=== PATIENT | female | born 1940 | race Caucasian/White ===

== ENCOUNTER 2018-02-11 17:25 | Inpatient (IN) | payer MEDICARE, OTHER, SELFPAY | END 2018-02-17 11:50 | DRG 177 | PROVIDERS: Admitting Provider Internal Medicine; Emergency Provider Emergency Medicine; PCP Internal Medicine; Visit Provider Internal Medicine | DX: J15.6 Pneumonia due to other Gram-negative bacteria (principal); J96.01 Acute respiratory failure with hypoxia; C90.00 Multiple myeloma not having achieved remission; D61.818 Other pancytopenia; F11.20 Opioid dependence, uncomplicated; E44.0 Moderate protein-calorie malnutrition; J15.9 Unspecified bacterial pneumonia; Y95 Nosocomial condition; E11.9 Type 2 diabetes mellitus without complications; E03.9 Hypothyroidism, unspecified; F32.9 Major depressive disorder, single episode, unspecified; Z79.84 Long term (current) use of oral hypoglycemic drugs; G25.0 Essential tremor; M19.90 Unspecified osteoarthritis, unspecified site; G89.4 Chronic pain syndrome; Z86.718 Personal history of other venous thrombosis and embolism; R33.9 Retention of urine, unspecified; R13.10 Dysphagia, unspecified; G31.84 Mild cognitive impairment of uncertain or unknown etiology; Z68.26 Body mass index [BMI] 26.0-26.9, adult | CPT/HCPCS: 36415; 36430; 36592; 36600; 71020; 71046; 71250; 74220; 74230; 80048; 80053; 80202; 81001; 82805; 82962; 83605; 83880; 84484; 85025; 86850; 86900; 86901; 86922; 87040; 92526; 92610; 92611; 93005; 93010; 94640; 94760; 96365; 96366; 97116; 97161; 97530; 99058; 99285; P9016; J0713; J1100; J1642; J1650; J1940; J1956; J3370; J7613 ==

== ENCOUNTER → 2018-03-16 13:23 | Outpatient (CLI) | payer MEDICARE, OTHER, SELFPAY ==
[2018-03-16 14:20] LABS: Add Manual Diff / Slide Review NO; Basophils Percent Auto 1.2 % (0-2); Eosinophils Percent Auto 3.7 % (2-4); Hematocrit 32.5 % (36-46); Hemoglobin 10.7 g/dL (12.0-16.0); Lymphocytes Percent Auto 13.4 % (25-40); Mean Corpuscular HGB Conc 33.1 % (30-36); Mean Corpuscular Hemoglobin 32.4 PG (26-34); Monocytes Percent Auto 11.4 % (3-14); Neutrophils Absolute Auto 3500 /uL (3000-5900); Neutrophils Percent Auto 70.3 % (50-75); Platelet Count 201 X10^3/uL (150-400); Red Blood Cell Count 3.32 X10^6/uL (4.0-5.2); Red Cell Distribution Width 16.7 % (11.6-14.8); White Blood Cell Count 4.9 X10^3/uL (4.5-11.0)
[2018-03-16 14:34] LABS: Alanine Aminotransferase 27 IU/L (9-52); Albumin Globulin Ratio 1.4 (1.0-2.8); Alkaline Phosphatase 101 U/L (38-126); Aspartate Aminotransferase 23 IU/L (14-36); BUN Creatinine Ratio 45.6 (6-22); Bilirubin Total 0.5 mg/dL (0.2-1.3); Calcium 8.9 mg/dL (8.4-10.2); Estimated Glomerular Filt Rate > 60.0 mL/min (>60); Globulin 2.9 g/dL (1.7-4.1); Glucose 163 mg/dL (80-110); HEMOLYSIS < 15 (0-50); Potassium 4.3 mmol/L (3.4-5.1); Sodium 138 mmol/L (137-145); Total Protein 6.9 g/dL (6.3-8.2)
[2018-03-18 14:25] LABS: Free Kappa Light Chain 137.2 mg/L (3.3-19.4); Free Lambda 22.1 mg/L (5.7-26.3)
[2018-03-18 22:43] LABS: Albumin 3.6 g/dL (3.8-4.8); Alpha 1 Globulin 0.4 g/dL (0.2-0.3); Beta 1 Globulin 0.4 g/dL (0.4-0.6); Gamma Globulin 0.7 g/dL (0.8-1.7); Protein, Total 6.4 g/dL (6.1-8.1)
[2018-03-29 15:21] LABS: Alpha 2 Globulin 0.9
== END ==
PROVIDERS: Family Provider Internal Medicine; PCP Internal Medicine; Visit Provider Internal Medicine Hematology & Oncology
DX: C90.00 Multiple myeloma not having achieved remission (principal)
CPT/HCPCS: 80053; 83883; 84155; 84165; 85025

== ENCOUNTER → 2018-03-20 14:34 | Outpatient (REF) | payer MEDICARE, OTHER, SELFPAY ==
[2018-03-20 15:03] LABS: Appearance Urine UA CLOUDY; Bilirubin Urine UA NEGATIVE (NEGATIVE); Color Urine UA YELLOW; Glucose Urine UA NEGATIVE (Negative); Ketones Urine UA NEGATIVE (NEGATIVE); Leukocyte Esterase Urine UA 2+ (NEGATIVE); Nitrite Urine UA POSITIVE (Negative); Occult Blood Urine UA TRACE-LYSED (Negative); Protein Urine UA NEGATIVE (Negative); Specific Gravity Urine UA 1.015 (1.000-1.035); Urobilinogen Urine UA 0.2 E.U./dL (0.2)
[2018-03-20 15:04] LABS: Bacteria Urine Many (>30); Culture Indicated Urine Specimen Cultured; RBC Urine 5-10/HPF (0-5/HPF); Squamous Epithelial Cell Urine 1-5 /HPF; WBC Urine >100/HPF (0-5/HPF)
--- NOTE | 2018-03-25 09:57 | PC.NURSE ---
Per Dr Blanco's request, pt daughter Gracie was notified that Bone survey shows stable disease with lesions not growing in size or number. Gracie was thankful for the call.
== END ==
LOC: LAB 14:34
PROVIDERS: Family Provider Internal Medicine; PCP Internal Medicine; Visit Provider Internal Medicine
DX: R30.0 Dysuria (principal)
CPT/HCPCS: 81001; 87086; 87186

== ENCOUNTER → 2018-03-23 14:29 | Outpatient (CLI) | payer MEDICARE, OTHER, SELFPAY ==
--- NOTE | 2018-03-23 14:35 | DI.RAD.S_ITS ---
PROCEDURE: XR BONE SURVEY INDICATIONS: BONE SURVEY TECHNIQUE: Multiple views obtained of various bony structures as described below. COMPARISON: [facility], , BONE SURVEY ADULT METS, 04/20/2017, 14:22. FINDINGS: Skull (lateral): 3 temporal bone defects appear unchanged. Small occipital lobe defect is unchanged. The second and larger occipital lobe defect on last exam is not seen, possibly obscured by rotation. Thoracic spine (AP, lateral): Rounded radiolucency is overlying T6, T8 and T9 and lateral view on prior exam are present but are obscured at T8 and T9, not seen at T6. Lumbar spine (AP, lateral): Scoliosis and degenerative changes with grade one anterolisthesis at L4-5 and facet arthropathy L4-5 and L5-S1. A large, 1.0 x 2.2 cm oval lucency projects over the posterior L1, also present on prior exam and therefore suspect for a true lesion. Smaller 1.4 cm lucency over the anterior, inferior L2 is more likely bowel gas but true lesion is not excluded. Pelvis (AP): Lytic lesions in the superior and inferior rami of the left ischium are unchanged. Probable degenerative cystic changes in the left acetabulum. Suspicious lucency in the right femoral neck laterally adjacent to the greater trochanter, unchanged. Right and left humeri (AP): Large lucency in the proximal one third of the right humeral shaft is unchanged. Small oval lucency in the proximal left humeral shaft is unchanged. No new lesions seen. Expansile lesion in the lateral left rib cage is unchanged. Right and left femurs (AP): As previously noted, there are very small lucencies scattered through the shaft of the right femur as well as several discrete lucencies in the distal femoral metaphysis just above the prosthesis. These appear to be unchanged. In the left femur are lucencies in the distal metaphysis just above the prosthesis that are indeterminate but suspicious. IMPRESSION: 1. Multiple osseous lesions consistent with metastatic bone disease such as multiple myeloma. These appear stable in size and number compared to last bone survey. Lesions in the upper lumbar spine are noted. Dictated by: Иван Harris M.D. on 03/23/2018 at 15:15 Approved by: Иван Harrsi M.D. on 03/23/2018 at 15:36
== END ==
PROVIDERS: Family Provider Internal Medicine; PCP Internal Medicine; Visit Provider Internal Medicine Hematology & Oncology
DX: R93.7 Abnormal findings on diagnostic imaging of other parts of musculoskeletal system (principal)
CPT/HCPCS: 77075

== ENCOUNTER → 2018-04-06 11:07 | Outpatient (CLI) | payer MEDICARE, OTHER, SELFPAY | PROVIDERS: Family Provider Internal Medicine; PCP Internal Medicine; Visit Provider Internal Medicine Hematology & Oncology | DX: C90.00 Multiple myeloma not having achieved remission (principal) | CPT/HCPCS: 36592 ==

== ENCOUNTER → 2018-05-11 12:23 | Outpatient (CLI) | payer MEDICARE, OTHER, SELFPAY ==
[2018-05-11 13:19] LABS: Add Manual Diff / Slide Review NO; Basophils Percent Auto 1.1 % (0-2); Eosinophils Percent Auto 3.5 % (2-4); Hematocrit 33.3 % (36-46); Lymphocytes Percent Auto 15.1 % (25-40); Mean Corpuscular HGB Conc 33.1 % (30-36); Mean Corpuscular Volume 96.7 fL (80-100); Monocytes Percent Auto 10.7 % (3-14); Neutrophils Absolute Auto 2400 /uL (3000-5900); Neutrophils Percent Auto 69.6 % (50-75); Platelet Count 172 X10^3/uL (150-400); Red Blood Cell Count 3.44 X10^6/uL (4.0-5.2); Red Cell Distribution Width 15.2 % (11.6-14.8); White Blood Cell Count 3.4 X10^3/uL (4.5-11.0)
[2018-05-11 13:50] LABS: Alanine Aminotransferase 22 IU/L (9-52); Albumin 3.7 g/dL (3.5-5.0); Albumin Globulin Ratio 1.5 (1.0-2.8); Alkaline Phosphatase 86 U/L (38-126); Aspartate Aminotransferase 23 IU/L (14-36); Bilirubin Total 0.4 mg/dL (0.2-1.3); Blood Urea Nitrogen 20 mg/dL (7-17); Calcium 8.8 mg/dL (8.4-10.2); Carbon Dioxide 29 mmol/L (22-32); Chloride 104 mmol/L (98-107); Estimated Glomerular Filt Rate > 60.0 mL/min (>60); Globulin 2.5 g/dL (1.7-4.1); Glucose 150 mg/dL (80-110); HEMOLYSIS < 15 (0-50); Sodium 140 mmol/L (137-145); Total Protein 6.2 g/dL (6.3-8.2)
[2018-05-13 15:48] LABS: Free Kappa Light Chain 134.8 mg/L (3.3-19.4); Free Lambda 15.5 mg/L (5.7-26.3)
[2018-05-17 21:16] LABS: Albumin 3.2 g/dL (3.8-4.8); Alpha 1 Globulin 0.3 g/dL (0.2-0.3); Alpha 2 Globulin 0.7 g/dL (0.5-0.9); Beta 1 Globulin 0.4 g/dL (0.4-0.6); Gamma Globulin 0.8 g/dL (0.8-1.7); Protein, Total 5.7 g/dL (6.1-8.1)
== END ==
PROVIDERS: Family Provider Internal Medicine; PCP Internal Medicine; Visit Provider Internal Medicine Hematology & Oncology
DX: C90.00 Multiple myeloma not having achieved remission (principal)
CPT/HCPCS: 80053; 82784; 83883; 84155; 84165; 85025; 86334

== ENCOUNTER → 2018-06-09 12:38 | Outpatient (CLI) | payer MEDICARE, OTHER, SELFPAY ==
[2018-06-09 13:28] LABS: Alanine Aminotransferase 16 IU/L (9-52); Albumin 3.5 g/dL (3.5-5.0); Albumin Globulin Ratio 1.5 (1.0-2.8); Alkaline Phosphatase 72 U/L (38-126); Aspartate Aminotransferase 15 IU/L (14-36); BUN Creatinine Ratio 27.5 (6-22); Bilirubin Total 0.4 mg/dL (0.2-1.3); Blood Urea Nitrogen 22 mg/dL (7-17); Calcium 8.4 mg/dL (8.4-10.2); Carbon Dioxide 29 mmol/L (22-32); Chloride 100 mmol/L (98-107); Estimated Glomerular Filt Rate > 60.0 mL/min (>60); Globulin 2.4 g/dL (1.7-4.1); Glucose 155 mg/dL (80-110); HEMOLYSIS < 15 (0-50); Potassium 4.3 mmol/L (3.4-5.1); Sodium 137 mmol/L (137-145); Total Protein 5.9 g/dL (6.3-8.2)
[2018-06-09 13:34] LABS: Add Manual Diff / Slide Review NO; Hematocrit 31.1 % (36-46); Hemoglobin 10.4 g/dL (12.0-16.0); Lymphocytes Percent Auto 25.4 % (25-40); Mean Corpuscular HGB Conc 33.6 % (30-36); Mean Corpuscular Hemoglobin 32.3 PG (26-34); Mean Corpuscular Volume 96.1 fL (80-100); Neutrophils Absolute Auto 1000 /uL (3000-5900); Neutrophils Percent Auto 44.2 % (50-75); Platelet Count 167 X10^3/uL (150-400); Red Blood Cell Count 3.23 X10^6/uL (4.0-5.2); Red Cell Distribution Width 15.7 % (11.6-14.8); White Blood Cell Count 2.3 X10^3/uL (4.5-11.0)
[2018-06-09 13:40] LABS: Eosinophils Percent Auto 15.8 % (2-4)
[2018-06-09 13:41] LABS: Basophils Percent Auto 2.6 % (0-2)
[2018-06-11 16:52] LABS: Free Kappa Light Chain 224.7 mg/L (3.3-19.4); Free Kappa/ Lambda Ratio 5.51 (0.26-1.65); Free Lambda 40.8 mg/L (5.7-26.3)
[2018-06-15 14:51] LABS: Albumin 3.3 g/dL (3.8-4.8); Alpha 1 Globulin 0.3 g/dL (0.2-0.3); Alpha 2 Globulin 0.7 g/dL (0.5-0.9); Beta 1 Globulin 0.4 g/dL (0.4-0.6); Gamma Globulin 0.7 g/dL (0.8-1.7); Protein, Total 5.7 g/dL (6.1-8.1)
== END ==
PROVIDERS: Nurse Practitioner Gerontology; Family Provider Internal Medicine; PCP Internal Medicine; Visit Provider Internal Medicine Hematology & Oncology
DX: C90.00 Multiple myeloma not having achieved remission (principal)
CPT/HCPCS: 80053; 83883; 84155; 84165; 85025

== ENCOUNTER → 2018-08-05 09:57 | Outpatient (CLI) | payer MEDICARE, OTHER, SELFPAY | PROVIDERS: Family Provider Internal Medicine; PCP Internal Medicine; Visit Provider Internal Medicine Hematology & Oncology | DX: C90.00 Multiple myeloma not having achieved remission (principal) ==

== ENCOUNTER → 2018-09-23 14:20 | Outpatient (CLI) | payer SELFPAY ==
--- NOTE | 2018-09-23 15:04 | DI.US.S_ITS ---
PROCEDURE: US PERIPH VENOUS LOW EXTREM LT INDICATIONS: DVT TECHNIQUE: Real-time imaging, as well as color and pulse Doppler interrogation, were performed of the lower extremity deep veins from the inguinal ligament to the popliteal fossa. COMPARISON: None. FINDINGS: The deep veins are normally compressible, and free of intraluminal thrombus. Color and pulse Doppler demonstrate normal phasic intraluminal flow. There is normal augmentation response to distal compression maneuver. IMPRESSION: No DVT found. Dictated by: Dileep Cervantes M.D. on 09/23/2018 at 15:19 Approved by: Dileep Cervantes M.D. on 09/23/2018 at 15:19
== END ==
PROVIDERS: Family Provider Internal Medicine; PCP Internal Medicine; Visit Provider Internal Medicine Hematology & Oncology
DX: I82.402 Acute embolism and thrombosis of unspecified deep veins of left lower extremity (principal)
CPT/HCPCS: 93971

== ENCOUNTER → 2018-11-09 07:39 | Outpatient (CLI) | payer MEDICARE, OTHER, SELFPAY ==
--- NOTE | 2018-11-09 07:41 | DI.MRI.S_ITS ---
PROCEDURE: MR HIP RT WO/W CON INDICATIONS: MULTIPLE MYLEOMA TECHNIQUE: Noncontrast coronal T1 spin echo and STIR, sagittal T1 spin echo with fat saturation and STIR, axial T1 spin echo and T2 fast spin echo with fat saturation. After the administration of contrast, axial/sagittal/coronal T1 spin echo with fat saturation through the right hip. COMPARISON: [facility], [place], PET WHOLE BODY MELANOMA, 10/27/2018, 9:03. FINDINGS: Image quality: Diagnostic. Bones: There is no acute fracture or dislocation identified involving the right hip. There are at least 5 lesions identified within it the proximal right femur. 3 of these lesions demonstrate enhancement into the do not. The 3 that demonstrate enhancement located along the superior margin of the femoral head and the superior margin of the femoral neck. There is also a small enhancing lesion identified within the intertrochanteric region. The largest measures up to approximately 1.5 cm. Additional enhancing lesions within the pelvis are evident, including the right acetabulum, ischial tuberosity, inferior pubic ramus, and superior pubic ramus. There also are additional lesions are present throughout the pelvis. No significant joint effusion is identified. Degenerative changes of the lumbar spine and bilateral hips are noted. There also are degenerative changes of the sacroiliac joints and pubis symphysis. Soft tissues: No soft tissue masses or suspicious enhancement is evident. There is mild soft tissue edema overlying the greater trochanteric region and along the superior margin of the femoral head. Mild atrophy involving the gluteal muscles is present. No significant tendon tearing is evident involving the distal gluteus medius and gluteus minimus tendons. The distal iliopsoas tendons and proximal hamstrings tendons are intact. Degenerative tearing of the superior labrum is present. IMPRESSION: 1. Multiple myelomatous lesions involving the imaged osseous structures of the pelvis and bilateral proximal femurs. 2. There are at least 3 enhancing lesions involving the proximal right femur. There is no pathologic fracture evident. 3. Mild to moderate degenerative changes of the right hip. 4. Degenerative tearing of the right acetabular labrum. Dictated by: Alex Zamora M.D. on 11/09/2018 at 11:23 Approved by: Alex Zamora M.D. on 11/09/2018 at 11:36
== END ==
PROVIDERS: Family Provider Internal Medicine; PCP Internal Medicine; Visit Provider Internal Medicine Hematology & Oncology
DX: C90.00 Multiple myeloma not having achieved remission (principal); M16.11 Unilateral primary osteoarthritis, right hip; S73.191A Other sprain of right hip, initial encounter
CPT/HCPCS: 73723; A9579

== ENCOUNTER 2019-01-17 11:22 | Inpatient (IN) | payer MEDICARE, OTHER, SELFPAY ==
--- NOTE | 2019-01-17 | DI.RAD.S_ITS ---
PROCEDURE: XR CHEST 2V INDICATIONS: SHORTNESS OF BREATH, PNA? TECHNIQUE: 2 views of the chest were acquired. COMPARISON: [facility], CT, CT CHEST W CON, 03/10/2017, 11:52. [facility], CT, CT NELSON, 11/15/2018, 11:07. [facility], CT, THORAX WITHOUT CONTRAST, 02/11/2018, 20:45. [facility], NM, PET WHOLE BODY MELANOMA, 10/27/2018, 9:03. [facility], MR, MR HIP RT WO/W CON, 11/09/2018, 8:00. [facility], CR, CHEST 2 VIEW, 02/11/2018, 18:04. [facility], CR, CHEST 2 VIEW, 02/05/2018, 14:39. FINDINGS: Surgical changes and devices: A Port-A-Cath from a left-sided approach extends into the area of the left-sided superior vena cava, previously present. Lungs and pleura: Lungs are abnormal, with an interstitial prominence present greater on the right than the left, and there are are areas of prominence of the mediastinal border on the right and the hilar structures when compared to that on the left worrisome for representing adenopathy.. No pleural effusions or pneumothorax. Mediastinum: Mediastinal contours are normal. Heart size is normal. Bones and chest wall: No suspicious bony abnormalities. Soft tissues appear unremarkable. IMPRESSION: Possible adenopathy developing in the perihilar lung parenchyma and mediastinum borders on the right, in this patient with a Port-A-Cath in place. The Port-A-Cath takes a vertical approach through a left-sided superior vena cava. Contrast enhanced chest CT examination may be warranted given this finding. Dictated by: Dileep Cervantes M.D. on 01/17/2019 at 14:18 Approved by: Dileep Cervantes M.D. on 01/17/2019 at 14:22
--- NOTE | 2019-01-17 | DI.US.S_ITS ---
PROCEDURE: US RENAL COMPLETE INDICATIONS: ACUTE RENAL FAILURE, KIDNEY OBSTRUCTION TECHNIQUE: Real-time scanning was performed of the kidneys and bladder, with image documentation. COMPARISON: [facility], CT, CT CHEST W CON, 03/10/2017, 11:52. [facility], CT, THORAX WITHOUT CONTRAST, 02/11/2018, 20:45. FINDINGS: Kidneys: The right kidney is surgically absent. The left kidney measures 11.4 cm craniocaudad. There appears to be a cyst measuring 1.3 cm at the upper pole of the left kidney, and no left urinary tract stone. There is a 1.3 cm cyst at the superior pole of the left kidney in exactly this position on contrast-enhanced CT scanning from 03/10/17, same size. Bladder: Catheter in place, the bladder is essentially collapsed. Poor visualization. Miscellaneous: No free pelvic fluid. IMPRESSION: Prior right nephrectomy, small previously present cyst is again seen at the upper cortex of the anterior left kidney. The quality of visualization is very limited due to body habitus. Bladder is emptied by catheter in place. The study does establish that no hydronephrosis at the left kidney is present. Dictated by: Dileep Cervantes M.D. on 01/17/2019 at 17:13 Approved by: Dileep Cervantes M.D. on 01/17/2019 at 17:16
[2019-01-17 13:01] VITALS: BP 110/62; PULSE 60; RESP 20; TEMP 36.6; O2SAT 97
[2019-01-17 13:33] LABS: Add Manual Diff / Slide Review NO; Basophils Absolute Auto 0 /uL (0-100); Basophils Percent Auto 0.5 % (0-2); Eosinophils Absolute Auto 0 /uL (0-450); Eosinophils Percent Auto 0.9 % (2-4); Hematocrit 31.7 % (36-46); Lymphocytes Absolute Auto 500 /uL (1100-4500); Lymphocytes Percent Auto 11.8 % (25-40); Mean Corpuscular HGB Conc 34.6 % (30-36); Mean Corpuscular Hemoglobin 32.2 PG (26-34); Mean Corpuscular Volume 93.1 fL (80-100); Monocytes Absolute Auto 500 /uL (0-900); Neutrophils Absolute Auto 3100 /uL (1500-7000); Neutrophils Percent Auto 75.8 % (50-75); Platelet Count 212 X10^3/uL (150-400); Red Blood Cell Count 3.41 X10^6/uL (4.0-5.2); Red Cell Distribution Width 14.6 % (11.6-14.8); White Blood Cell Count 4.1 X10^3/uL (4.5-11.0)
[2019-01-17 13:46] LABS: Alanine Aminotransferase 21 IU/L (9-52); Albumin 3.5 g/dL (3.5-5.0); Albumin Globulin Ratio 1.3 (1.0-2.8); Alkaline Phosphatase 88 U/L (38-126); Aspartate Aminotransferase 17 IU/L (14-36); BUN Creatinine Ratio 7.9 (6-22); Bilirubin Total 1.3 mg/dL (0.2-1.3); Blood Urea Nitrogen 50 mg/dL (7-17); Calcium 7.4 mg/dL (8.4-10.2); Carbon Dioxide 20 mmol/L (22-32); Chloride 92 mmol/L (98-107); Estimated Glomerular Filt Rate 6.4 mL/min (>60); Globulin 2.6 g/dL (1.7-4.1); Glucose 117 mg/dL (80-110); HEMOLYSIS < 15 (0-50); Lactate (Lactic Acid) 0.6 mmol/L (0.7-2.1); Potassium 3.3 mmol/L (3.4-5.1); Sodium 126 mmol/L (137-145); Total Protein 6.1 g/dL (6.3-8.2)
[2019-01-17 13:47] LABS: Magnesium 1.7 mg/dL (1.6-2.3)
[2019-01-17 13:51] VITALS: BMI 40.2
[2019-01-17 14:14] LABS: Procalcitonin 0.09 ng/mL (<0.5)
[2019-01-17] MEDS: SODIUM CHLORIDE 0.9% 1,000 ML 125 ML IV (14:55)
[2019-01-17 15:01] LABS: Appearance Urine UA SL CLOUDY; Bilirubin Urine UA NEGATIVE (NEGATIVE); Color Urine UA YELLOW; Glucose Urine UA NEGATIVE (Negative); Ketones Urine UA NEGATIVE (NEGATIVE); Leukocyte Esterase Urine UA 1+ (NEGATIVE); Nitrite Urine UA NEGATIVE (Negative); Occult Blood Urine UA TRACE-INTACT (Negative); Protein Urine UA 1+ (Negative); Urobilinogen Urine UA 0.2 E.U./dL (0.2); pH Urine UA 5.5 (4.5-8.0)
[2019-01-17 15:12] LABS: Amorphous Sediment Urine 1+; RBC Urine 0-1/HPF (0-5/HPF); Squamous Epithelial Cell Urine 1-5 /HPF; WBC Urine 10-30/HPF (0-5/HPF)
[2019-01-17 15:13] LABS: Bacteria Urine Moderate (10-30); Culture Indicated Urine Specimen Cultured; Mucus Urine 1+ (Negative)
--- NOTE | 2019-01-17 15:21 | PC.ADMIT ---
[email or web address] [facility] Admission Note: The patient,Lorraine Parra,78 y/o, was given written information regarding hospital policies, unit procedures and contact persons. Patient's smoking status: Never smoker. Vital Signs - 8 hr 01/17/19 13:01 Temperature 97.9 F Pulse Rate 60 Respiratory Rate 20 Blood Pressure 110/62 Pulse Oximetry 97 PATIENT DIRECT ADMIT FROM ONCOLOGY TO 231. HAD BEEN SICK W/ FLU RECENTLY AND IS NOW WEAK, MAYBE A LITTLE CONFUSED. SHE IS A LITTLE DROWSY. VSS. EXP RHONCHI AND WHEEZES AND OCCASIONAL HARSH COUGH. SAT 97% ON RA. DAUGHTER PRESENT ON ADMIT AND THEN LEFT. SHE WROTE HER PHONE NUMBER ON THE WHITE BOARD IN . CONTACTED HER PHARMACY ([facility]) AND REQUESTED MED LIST TO BE SENT BY FAX. ALSO CALLED [facility], AND REQUESTED THE MED LIST FROM THERE. PATIENT'S DTR REPORTED SHE HAD BEEN AT [facility] FOR A FEW MONTHS RECENT NOVEMBER AND THAT THERE HAVE BEEN NO CHANGES TO HER MED LIST SINCE THEN. DARRON CALDERA RN NOTIFIED OF SAME AND THAT MED REC STILL NEEDS TO BE COMPLETED. PATIENT REPORTED NO VOID IN 3 DAYS, AND DIFFICULTY W/ VOIDING FOR 3 MONTHS. BLADDER SCANNED W/ 400CC'S NOTED. REPORTED SAME TO DR. CASE INCLUDING LABS REVEALING ACUTE RENAL FX. OBTAINED ORDER FOR [facility], UA, PORTACATH ACCESS, NS IVF. DR. CASE SPOKE WITH DR. GRANT; ONCOLOGIST WHO SENT PATIENT HERE. THEY ARE PLANNING TO TRANSF PATIENT FOR DIALYSIS. DARRON CALDERA RN NOTIFIED.
--- NOTE | 2019-01-17 15:23 | PM.HP.1 ---
History of Present Illness Date Patient Seen: 01/17/19 Chief complaint: Acute renal failure Narrative: Lorraine Parra is an 78-year-old woman with a past medical history significant for hypertension, hyperlipidemia, hypothyroidism and a longstanding history of multiple myeloma who was directly admitted from Dr. Rousseau's office for worsening cough thought to have probable pneumonia and mildly altered mental status. In regard to her multiple myeloma, she had been treated with Revlimid and had been stable for many years. She also had multiple courses of radiation to areas of progression over that time. She previously has been on Zometa but can't remember how long ago that was stopped. At her last visit here, she is found to have evidence of progression with increase in her serum free light chains. It was planned to start her on Ninlaro. She has received the pills but has not started taking them. Over the last few weeks, she was admitted to [facility] for influenza. Since her hospital discharge, she initially was improving but then her symptoms recurred. She has very limited mobility. She reports that she has not been urinating for the last several days. She has had some low-grade fevers, as well as, a persistent cough. Her family notes that her mental status has been somewhat confused. Upon my interview, she is able to give limited history but has slow mentation and somnolent, therefore, extremely limited. She was directly admitted from Dr. Rousseau's office and was found to be in acute renal failure with a creatinine of 6.3 and a GFR of 6. She has history of right nephrectomy 09/2008 for renal cell carcinoma, high grade papillary, with chronic renal insufficiency. Her most recent creatinine was 1.0 on 12/13/2018. The patient endorses headache, cough, decreased urination, and chronic neuropathy of lower extremities. She denies shortness of breath, chest pain, abdominal pain, nausea, vomiting, fever, chills, dysuria, diarrhea or constipation. Previous oncology treatment: 1. 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 Progression to multiple myeloma started treatment with Revlimid and dexamethasone in March 2014. She later transitioned to Revlimid only at a dose of 15 mg/day. 3. Radiation therapy to the 6th rib, T11-L2, cervical spine and left ilium in May 2014 4. Radiation therapy to the right humerus finishing in October 2014 5. Radiation therapy to T7 and T12 in May 2015 6. Another course of radiation to the right humerus in June 2015 7. Another course of radiation to the spine from T9 through L1 in January 2016 8. 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 Radiation therapy to the right hip in October 2018. Patient History Medical History Depression (Acute) History of UTI (Acute) Hypertension (Acute) Multiple myeloma (Acute) Neuropathy (Acute) Renal cell carcinoma (Acute) Surgical History History of cholecystectomy (Acute) History of nephrectomy, right (Acute) History of tonsillectomy (Acute) Hx of appendectomy (Acute) Family History Mother No problems noted. Father No problems noted. Social History household members: none Smoking Status: Never smoker alcohol intake: current Family & Social History Family History Mother No problems noted. Father No problems noted. Social History: household members none Prior Living Arrangements House The patient is times 10 years. She has one andiughther Gracie Leblanc. Safety & Behavioral: Feels Safe in Current Yes Environment Been Physically Hurt or No Threatened By a Person Suicidal Ideation Description None Suicide Plan Description No Plan Tobacco & Substance use: Smoking Status Never smoker alcohol intake current alcohol intake frequency holiday/special occasion Substance Use Type does not use Meds Home Medications Medication Instructions Recorded Confirmed Type gabapentin 600 mg PO TID #0 12/01/11 11/04/18 History cholecalciferol (vitamin D3) 2,000 iu PO QDAY #0 07/22/16 11/07/18 History [Vitamin D3] ipratropium bromide 2 spray INH BID #0 07/27/16 11/04/18 History lactulose 10 gm PO BID #360 ml 08/19/16 11/04/18 Rx [ZOMETA] QMONTH #0 04/12/17 History glipizide 5 mg PO AMAC #0 04/19/17 11/04/18 History lidocaine-prilocaine 1 don TOPICAL PRN PRN #30 gm 05/05/17 11/04/18 Rx multivitamin [Multiple Vitamins] 1 tab PO QDAY #0 05/12/17 11/04/18 History eszopiclone 3 mg PO HS #0 01/14/18 11/04/18 History propranolol 80 mg PO DAILY #0 01/14/18 11/07/18 History albuterol sulfate 1 puff INH QID #0 02/12/18 01/17/19 History clobetasol-emollient 0.05 pump TOPICAL Q8HP #0 02/12/18 11/07/18 History diphenoxylate-atropine 1 tab PO BID #0 02/12/18 11/04/18 History guaifenesin 600 mg PO BID #0 02/12/18 11/04/18 History ondansetron [Zofran ODT] 8 mg PO Q8HP PRN #0 02/12/18 11/04/18 History Ketoconazole 1 don TOPICAL BID 03/30/18 11/04/18 History levothyroxine 150 mcg PO DAILY 03/30/18 11/07/18 History loperamide 2 mg PO Q2-4H PRN 03/30/18 11/04/18 History melatonin 1 mg PO BEDTIME PRN 03/30/18 11/04/18 History omeprazole 40 mg PO DAILY 03/30/18 11/07/18 History sertraline 100 mg PO DAILY 03/30/18 11/07/18 History apixaban 5 mg PO DAILY 09/23/18 11/07/18 History Florastor 250 mg PO BID 11/07/18 11/07/18 History oxycodone-acetaminophen 1 tab PO Q6H PRN 11/07/18 11/07/18 History dexamethasone 20 mg PO WEEKLY 28 Days #40 tab 12/13/18 Rx pomalidomide 2 mg PO DAILY 21 Days #21 cap 12/13/18 Rx Ninlaro 4 mg PO QWEEK 28 Days #3 cap 12/28/18 Rx acetaminophen [Tylenol Extra 650 mg PO PRN PRN 01/17/19 History Strength] Allergies Allergy/AdvReac Type Severity Reaction Status Date / Time morphine Allergy Severe STROKE Verified 04/20/18 13:22 LIKE SYMPTOMS levofloxacin Allergy Intermediate HIVES Verified 04/20/18 13:22 adhesive [ADHESIVE] Allergy Mild BLISTERS Verified 04/20/18 13:22 celecoxib Allergy Mild RASH, Verified 04/20/18 13:22 SMALL BLISTERS, NAUSEA Penicillins Allergy Mild RASH Verified 04/20/18 13:22 phenazopyridine Allergy Mild VOMITING Verified 04/20/18 13:22 [From PYRIDIUM] Sulfa (Sulfonamide Allergy Mild BLISTERS Verified 04/20/18 13:22 Antibiotics) lactose [LACTOSE] Allergy Unknown Verified 04/20/18 13:22 Review of Systems Review of Systems A 10 system comprehensive review of systems was conducted with the patient and found to be negative except as above in the History of Present Illness. Exam Vital Signs (past 8 hours): - 01/17/19 13:01 Temperature 97.9 F Pulse Rate 60 Respiratory Rate 20 Blood Pressure 110/62 Pulse Oximetry 97 Oxygen Delivery Method Room Air Narrative Exam Narrative: General: Elderly female lying in bed and in no acute distress, well-developed, well-nourished, somnolent but arousable. HEENT: Normocephalic, atraumatic. External ears without defect. Pupils equal, round, and reactive to light. Anicteric sclerae, moist conjunctivae, and no lid lag. Oropharynx free of erythema and cobble stoning with moist mucosa. Neck: Supple with full range of motion. No lymphadenopathy or thyromegaly. Cardiovascular: Regular rate and rhythm without murmurs, rubs, or gallops appreciated. Pulmonary: Upper airway rhonchi with bibasilar crackles. Normal respiratory effort with no use of accessory muscles. Abdomen: Soft, bowel sounds present, nontender, nondistended. No hepatosplenomegaly or masses appreciated. Extremities: No clubbing, cyanosis, or edema. Skin: Normal temperature, turgor, and texture; no rash, ulcers, or subcutaneous nodules appreciated. Neurological: Cranial nerves grossly intact. Psychiatric: Somnolent but arousable. Objective Labs Result Diagrams: 01/17/19 13:14 01/17/19 13:14 Labs: Laboratory Results - last 24 hr 01/17/19 01/17/19 01/17/19 13:14 13:14 13:14 WBC 4.1 L RBC 3.41 L Hgb 11.0 L Hct 31.7 L MCV 93.1 MCH 32.2 MCHC 34.6 RDW 14.6 Plt Count 212 Neut % (Auto) 75.8 H Lymph % (Auto) 11.8 L [place] % (Auto) 11.0 Eos % (Auto) 0.9 L Baso % (Auto) 0.5 Neut # (Auto) 3100 Lymph # (Auto) 500 L [place] # (Auto) 500 Eos # (Auto) 0 Baso # (Auto) 0 Sodium 126 L Potassium 3.3 L Chloride 92 L Carbon Dioxide 20 L BUN 50 H Creatinine 6.30 H Estimated GFR 6.4 L BUN/Creatinine Ratio 7.9 Glucose 117 H Lactate Calcium 7.4 L Magnesium Total Bilirubin 1.3 AST 17 ALT 21 Alkaline Phosphatase 88 Total Protein 6.1 L Albumin 3.5 Globulin 2.6 Albumin/Globulin Ratio 1.3 Procalcitonin 0.09 Urine Color Urine Appearance Urine pH Ur Specific Nelson Urine Protein Urine Glucose (UA) Urine Ketones Urine Occult Blood Urine Nitrate Urine Bilirubin Urine Urobilinogen Ur Leukocyte Esterase Urine RBC Urine WBC Ur Squamous Epith Cells Amorphous Sediment Urine Bacteria Urine Mucus Ur Culture Indicated? 01/17/19 01/17/19 01/17/19 13:14 13:14 14:15 WBC RBC Hgb Hct MCV MCH MCHC RDW Plt Count Neut % (Auto) Lymph % (Auto) [place] % (Auto) Eos % (Auto) Baso % (Auto) Neut # (Auto) Lymph # (Auto) [place] # (Auto) Eos # (Auto) Baso # (Auto) Sodium Potassium Chloride Carbon Dioxide BUN Creatinine Estimated GFR BUN/Creatinine Ratio Glucose Lactate 0.6 L Calcium Magnesium 1.7 Total Bilirubin AST ALT Alkaline Phosphatase Total Protein Albumin Globulin Albumin/Globulin Ratio Procalcitonin Urine Color Yellow Urine Appearance Sl cloudy Urine pH 5.5 Ur Specific Nelson 1.010 Urine Protein 1+ H Urine Glucose (UA) Negative Urine Ketones Negative Urine Occult Blood Trace-intact Urine Nitrate Negative Urine Bilirubin Negative Urine Urobilinogen 0.2 Ur Leukocyte Esterase 1+ H Urine RBC 0-1/hpf Urine WBC 10-30/hpf H Ur Squamous Epith Cells 1-5 /hpf Amorphous Sediment 1+ Urine Bacteria Moderate (10-30) H Urine Mucus 1+ H Ur Culture Indicated? Specimen cultured Assessment & Plan Assessment & Plan narrative: Lorraine Parra is an 78-year-old woman with a past medical history significant for hypertension, hyperlipidemia, hypothyroidism and a longstanding history of multiple myeloma who was directly admitted from Dr. Rousseau's office for worsening cough thought to have probable pneumonia and mildly altered mental status. 1. Acute kidney injury, present on admission. Active. -Likely multifactorial and due to: Nephropathy secondary to multiple myeloma versus UTI versus medication (propranolol, gabapentin, tizanidine, primidone). Ruled out postobstructive uropathy -Initial creatinine 6.3 with eGFR 6. Potassium 3.3. Baseline creatinine on 12/13/2018 1.0. -Urinalysis appears grossly infected with 10-30 WBC, moderate bacteria, leukocyte esterase, nitrate negative. Urine culture pending. -Renal ultrasound demonstrated prior right nephrectomy, small previously present cyst is again seen at the upper cortex of the anterior left kidney. The quality of visualization is very limited due to body habitus. Bladder is emptied by catheter in place. The study does establish that no hydronephrosis at the left kidney is present. -Continued IV fluids at 75 mL/hr per recommendation of indirect fire infantryman at . -Consulted with [facility], Dr. Trip Weller, and Dr. Peña, hospitalist who accepts transfer of patient. Patient may need temporary/emergent dialysis. 2. Multiple myeloma, present on admission. Active. -Patient to start Nilaro but has yet to take medication. She has been somewhat resistant to IV chemotherapy in the past. -Disease progression has been indolent but more recently has had increased serum kappa light chains with recent resistance to Revlimid. 3. Recent influenza infection. -Respiratory viral PCR negative for any acute viral illness. -Chest x-ray demonstrated possible adenopathy developing in the perihilar lung parenchyma and mediastinum borders on the right, in this patient with a Port-A-Cath in place. The Port-A-Cath takes a vertical approach through a left-sided superior vena cava. Contrast enhanced chest CT examination may be warranted given this finding. 4. Hypertension, chronic, present on admission. Stable. -Patient possibly on propranolol 160 mg QAM, 80 mg at noon and and 80 mg QPM 5. Recent bilateral saddle pulmonary emboli. -Patient underwent lower extremity ultrasound study on 09/23/2018. No evidence of DVT found. The emboli source of the large bilateral saddle pulmonary embolism is not clear at this moment. -Continue Eliquis 5 mg twice daily. 6. Hypothyroidism, chronic, present on admission. Stable. -Levothyroxine 150 mcg daily. 7. Peripheral neuropathy, present on admission. Stable. -Patient is on primidone, tizanidine, and gabapentin presumably for neuropathy. 8. History of renal cell carcinoma. -She had right nephrectomy 09/2008 for renal cell carcinoma, high grade, papillary, with chronic renal insufficiency. Medication reconciliation has not been completed but attached is most recent medication list from the patients pharmacy. Quality VTE Deep Vein Thrombosis/Pulmonary Embolism Present on Admission: No
[2019-01-17 16:17] LABS: Adenovirus Not Detected (Not Detect); Bordetella pertussis Not Detected (Not Detect); Chlamydophila pneumoniae Not Detected (Not Detect); Coronavirus 229E Not Detected (Not Detect); Coronavirus HKU1 Not Detected (Not Detect); Coronavirus NL 63 Not Detected (Not Detect); Coronavirus OC43 Not Detected (Not Detect); Human Metapneumovirus Not Detected (Not Detect); Human Rhinovirus/Enterovirus Not Detected (Not Detect); Influenza A Not Detected (Not Detect); Influenza B Not Detected (Not Detect); Mycoplasma pneumoniae Not Detected (Not Detect); Parainfluenza Virus 1 Not Detected (Not Detect); Parainfluenza Virus 2 Not Detected (Not Detect); Parainfluenza Virus 3 Not Detected (Not Detect); Parainfluenza Virus 4 Not Detected (Not Detect); Respiratory Syncytial Virus Not Detected (Not Detect)
[2019-01-17 17:58] VITALS: BP 134/70; PULSE 62; RESP 16; TEMP 36.6; O2SAT 92
[2019-01-17 18:00] VITALS: O2SAT 98
[2019-01-17] MEDS: ALBUTEROL/IPRATROPIUM 3 ML AMPUL INH (18:13)
[2019-01-17 18:14] VITALS: PULSE 67; RESP 12; O2SAT 97
[2019-01-17] MEDS: APIXABAN 5 MG TABLET PO (18:19)
[2019-01-17 18:20] LABS: Hemoglobin A1C% w Est Avg Glu 6.3 % (4.0-6.0)
--- NOTE | 2019-01-17 22:04 | PC.NURSE ---
kyaw note pt received from acute care. Pt sonmalent, unable to answer questions. Does TOM spontaneously. Left chest port accessed already, IVF at 75 ml/hr. Lehman in place with small amount of cloudy urine. Report called to nurse Meraz at [facility].
== END 2019-01-17 20:00 | disposition short-term general hospital (02) | DRG 683 ==
LOC: AC 15:22 → ICU 18:21
PROVIDERS: Admitting Provider Internal Medicine; Family Provider Internal Medicine; PCP Internal Medicine; Visit Provider Internal Medicine
DX: N17.9 Acute kidney failure, unspecified (principal); C90.00 Multiple myeloma not having achieved remission; N39.0 Urinary tract infection, site not specified; I10 Essential (primary) hypertension; E03.9 Hypothyroidism, unspecified; G62.9 Polyneuropathy, unspecified; Z85.528 Personal history of other malignant neoplasm of kidney; Z90.5 Acquired absence of kidney; E78.5 Hyperlipidemia, unspecified
CPT/HCPCS: 36415; 71046; 76770; 80053; 81001; 83036; 83605; 83735; 84145; 85025; 87077; 87086; 87186; 87633; 94640

== ENCOUNTER 2019-01-25 10:59 | Inpatient (IN) | payer MEDICARE, OTHER, SELFPAY ==
[2019-01-25 15:00] VITALS: BP 121/73; PULSE 77; RESP 18; TEMP 36.8; O2SAT 96
--- NOTE | 2019-01-25 15:28 | PC.NURSE ---
1445 Pt arrived from [facility] via ambulance, stretcher. Pt is awake, Ox3. Heparin drip set at 1100/11ml, using the Pts CIELO shaniqua cath.
[2019-01-25 15:42] VITALS: BMI 38.5
--- NOTE | 2019-01-25 15:50 | PC.NURSE ---
Addendum entered by Alison Wiggins R.N. 01/25/19 23:40: Current heparin rate based on 2200 PTT of 56 = 24 cc/hr; 1200 units/hr. Second iv line established and vanco infusing as ordered. Original Note: Addendum entered by Alison Wiggins R.N. 01/25/19 22:09: Stat PTT result 56. Christina Torres RN bolused pt with 2000 units heparin and increased rate 100 units/hr. Original Note: Addendum entered by Alison Wiggins R.N. 01/25/19 21:26: Stat PTT ordered prior to continuing heparin infusion per SHIRA Echevarria. Original Note: Addendum entered by Alison Wiggins R.N. 01/25/19 21:07: Informed SHIRA Echevarria, who is in house, awaiting orders for this patient who is on a heparin drip. Original Note: Addendum entered by Alison Wiggins R.N. 01/25/19 17:13: Dr. Ortiz was notified of pt's arrival and orders for c/o back pain and diet obtained. Per Dr. Ortiz, SHIRA Echevarria will manage heparin infusion and follow up with care. Original Note: Pt resting quietly in bed alert and oriented. Tremors present. Pt is on waffle mattress cushion. Heparin drip @ 11 cc/hr infusing without difficulty to left chest portacath site. Lehman to gravity with clear, yellow urine secured to right leg. Coarse breath sounds to BL bases R > L. Nonpitting edema to BL LE's L > R. Brian RN in with pt completing admission assessment.
[2019-01-25] MEDS: OXYCODONE/ACETAMINOPHEN 5/325 TABLET 1 TAB PO (17:31)
[2019-01-25 20:25] VITALS: BP 146/90; PULSE 78; RESP 20; TEMP 37.1; O2SAT 98
[2019-01-25 21:54] LABS: PTT Partial Thromboplastin Tim 56 SECONDS (26.4-36.2)
[2019-01-25] MEDS: HEPARIN DRIP 25,000 UNIT/500 ML IV.SOLN 22 UNIT IV (22:00)
[2019-01-25] MEDS: HEPARIN 5,000 UNIT/ML VIAL 2000 UNIT IV (22:29)
--- NOTE | 2019-01-25 22:45 | P.HP_ITS ---
History of Present Illness Chief complaint: Med/Surg Narrative: Lorraine Parra is an 78-year-old woman with a past medical history significant for hypertension, hyperlipidemia, hypothyroidism and a longstanding history of multiple myeloma who was directly admitted from Dr. Rousseau's office for worsening cough thought to have probable pneumonia and mildly altered mental status. Lorraine Parra was directly admitted from Dr. Rousseau's office for worsening cough thought to have probable pneumonia and mildly altered mental status. -Initial creatinine 6.3 with eGFR 6. Potassium 3.3. Baseline creatinine on 12/13/2018 1.0. In regard to her multiple myeloma, she had been treated with Revlimid and had been stable for many years. She also had multiple courses of radiation to areas of progression over that time. She previously has been on Zometa but can't remember how long ago that was stopped. At her last visit here, she is found to have evidence of progression with increase in her serum free light chains. It was planned to start her on Ninlaro. She has received the pills but has not started taking them. Over the last few weeks, she was admitted to [facility] for influenza. Since her hospital discharge, she initially was improving but then her symptoms recurred. She has very limited mobility. She reports that she has not been urinating for the last several days. She has had some low-grade fevers, as well as, a persistent cough. Her family notes that her mental status has been somewhat confused. Upon my interview, she is able to give limited history but has slow mentation and somnolent, therefore, extremely limited. She was directly admitted from Dr. Rousseau's office and was found to be in acute renal failure with a creatinine of 6.3 and a GFR of 6. She has history of right nephrectomy 09/2008 for renal cell carcinoma, high grade papillary, with chronic renal insufficiency. Her most recent creatinine was 1.0 on 12/13/2018. The patient endorses headache, cough, decreased urination, and chronic neuropathy of lower extremities. She denies shortness of breath, chest pain, abdominal pain, nausea, vomiting, fever, chills, dysuria, diarrhea or constipation. On 01/18/19, she was transferred to [facility] for worsening renal failure with the expectation that the patient may need dialysis. -Renal ultrasound demonstrated prior right nephrectomy, small previously present cyst is again seen at the upper cortex of the anterior left kidney. The quality of visualization is very limited due to body habitus. Bladder is emptied by catheter in place. The study does establish that no hydronephrosis at the left kidney is present. Her IV fluids were continued at 75 mL/hr per recommendation of middle school art teacher at . Likely multifactorial and due to: Nephropathy secondary to multiple myeloma versus UTI versus medication (propranolol, gabapentin, tizanidine, primidone). Ruled out postobstructive uropathy. Urinalysis appears grossly infected with 10-30 WBC, moderate bacteria, leukocyte esterase, nitrate negative and the urine culture was pending at the time of transfer. Consulted with [facility], Dr. Trip Weller, and Dr. Peña, hospitalist who accepted the transfer of patient with the possibility she may need temporary/emergent dialysis. On 01/25/19, patient was returned to this facility in stable condition from [facility]. While there her creatinine peaked at 7 and then down trended before treatment of her multiple myeloma, it was thought to be more consistent with acute tubular necrosis due to hypovolemia with recent illness and poor oral intake. The patient was discharged with a Lehman due to failing a voiding trial on the day of discharge. she did have an Enterococcus UTI and was started on vancomycin of which she will receive her last dose tonight. While at [facility] oncologist Dr. Ashleigh Henson recommended a dexamethasone pulse for 4 days followed by the patient's home prescription of known large IO which occurs on Sundays, which this Wednesday's will be her 2nd of 3 doses. Apixaban for a saddle embolism that she has had since July of 2018 was discontinued due to her renal impairment and she was started on a heparin drip which continued when she was transferred. Currently she is receiving 1100 units/hour. The patient is a stoic historian and minimizes her symptoms. She denies chest pain, no shortness of breath with inspiration or expiration, current weight using a Lehman because she states she was unable to urinate, she states that she has both diarrhea and constipation and takes Lomotil for this. She does endorse being fatigued and finds it difficult to maintain a conversation with me or her nurse. Patient History Medical History (Updated 01/25/19 @ 23:53 by SHIRA Walsh) Inpatient management required (Acute) Acute urinary retention (Acute) ATN (acute tubular necrosis) (Acute) UTI (urinary tract infection) due to Enterococcus (Acute) Pulmonary embolus (Acute) Nausea (Acute) Multiple myeloma (Chronic) Depression (Acute) History of UTI (Acute) Hypertension (Acute) Multiple myeloma (Acute) Neuropathy (Acute) Renal cell carcinoma (Acute) Surgical History History of cholecystectomy (Acute) History of nephrectomy, right (Acute) History of tonsillectomy (Acute) Hx of appendectomy (Acute) Family History Mother No problems noted. Father No problems noted. Social History (System 03/03/18 @ 14:11 by Patricia Sher) household members: caregiver and none Smoking Status: Never smoker alcohol intake: current Family & Social History Family History Mother No problems noted. Father No problems noted. Social History: household members caregiver,none Prior Living Arrangements House Safety & Behavioral: Feels Safe in Current Yes Environment Been Physically Hurt or Yes Threatened By a Person Suicidal Ideation Description None Tobacco & Substance use: Smoking Status Never smoker alcohol intake current alcohol intake frequency holiday/special occasion Substance Use Type does not use Meds Home Medications Medication Instructions Recorded Confirmed Type multivitamin [Multiple Vitamins] 1 tab PO QDAY #0 05/12/17 01/25/19 History propranolol 160 mg PO QAM #0 01/14/18 01/25/19 History albuterol sulfate 1 neb INH QID #0 02/12/18 01/25/19 History clobetasol-emollient 0.05 pump TOPICAL BID #0 02/12/18 01/25/19 History guaifenesin 600 mg PO BID #0 02/12/18 01/25/19 History levothyroxine 150 mcg PO DAILY 03/30/18 01/25/19 History melatonin 1 mg PO BEDTIME PRN 03/30/18 01/25/19 History omeprazole 20 mg PO DAILY 03/30/18 01/25/19 History sertraline 100 mg PO DAILY 03/30/18 01/25/19 History acetaminophen 650 mg PO Q8H 01/25/19 01/25/19 History acyclovir 200 mg PO BID 01/25/19 01/25/19 History albuterol sulfate 3 ml INHALATION Q4H PRN 01/25/19 01/25/19 History benzonatate 100 mg PO TID PRN 01/25/19 01/25/19 History cyanocobalamin (vitamin B-12) 1,000 mcg PO DAILY 01/25/19 01/25/19 History diclofenac sodium 0.5 g TOPICAL BID 01/25/19 01/25/19 History insulin glargine 5 units SUBCUT DAILY 01/25/19 01/25/19 History ixazomib 4 mg PO QWEEK 01/25/19 01/25/19 History oxycodone-acetaminophen 1 - 2 tab PO Q4H PRN MDD 4000mg 01/25/19 01/25/19 History acetaminophen propranolol 80 mg PO 1200,1500 01/25/19 01/25/19 History Allergies Allergy/AdvReac Type Severity Reaction Status Date / Time morphine Allergy Severe STROKE Verified 04/20/18 13:22 LIKE SYMPTOMS levofloxacin Allergy Intermediate HIVES Verified 04/20/18 13:22 adhesive [ADHESIVE] Allergy Mild BLISTERS Verified 04/20/18 13:22 celecoxib Allergy Mild RASH, Verified 04/20/18 13:22 SMALL BLISTERS, NAUSEA Penicillins Allergy Mild RASH Verified 04/20/18 13:22 phenazopyridine Allergy Mild VOMITING Verified 04/20/18 13:22 [From PYRIDIUM] Sulfa (Sulfonamide Allergy Mild BLISTERS Verified 04/20/18 13:22 Antibiotics) lactose [LACTOSE] Allergy Unknown Verified 04/20/18 13:22 Review of Systems Review of Systems All systems reviewed & are unremarkable except as noted in HPI and below Exam Vital Signs (past 8 hours): - 01/25/19 15:00 01/25/19 20:25 Temperature 98.3 F 98.8 F Pulse Rate 77 78 Respiratory Rate 18 20 Blood Pressure 121/73 146/90 H Pulse Oximetry 96 98 Oxygen Delivery Method Room Air Oxygen Flow Rate 0 Narrative Exam Narrative: January 24 labs from [facility]: CBC: WBC: 4.6, RBC 3.38, hemoglobin 10.6, hematocrit: 32%, platelet count 279,000 BMP: Sodium: 140, potassium: 4.1, chloride: 100, CO2 28, anion gap: 12, creatinine: 1.71, GFR: 28, BUN: 57, glucose: 150 General: Alert, rather lethargic, chronically ill-appearing 78-year-old female, no distress, nontoxic HEENT: Normocephalic atraumatic Eyes: Conjunctiva is clear sclerae nonicteric Neck: Supple, normal range of motion, no JVD Respirations: Lung sounds are clear to auscultation bilaterally no wheezes or rhonchi CV: Regular rate and rhythm no murmur or rubs Abdomen: Soft, nontender, normoactive bowel tones : Lehman draining clear yellow urine Skin: She appears mildly jaundiced, otherwise no lesions or rashes Neuro: She is bit lethargic but alert oriented x3 Extremities: Able to move all 4 extremities though appears to be weak. Psych: Normal mood and affect Objective Labs Labs: Laboratory Results - last 24 hr 01/25/19 21:38 APTT 56 H Assessment & Plan (1) UTI (urinary tract infection) due to Enterococcus: Problem details: Present on admission. Patient is on day 6 of a 7-day course of vancomycin. She will receive a dose of vancomycin 1260 mg IV tonight. Current visit: Yes Status: Acute (2) ATN (acute tubular necrosis): Problem details: Present on admission. Monitor renal function daily. Current visit: Yes Status: Acute (3) Acute urinary retention: Problem details: Present on admission. Patient has a Lehman. Reassess in 24 hours. Current visit: Yes Status: Acute (4) Inpatient management required: Problem details: Social history reviewed by me. Patient's diabetic status needs to be addressed. She is on a renal diabetic diet, has had mildly elevated spot glucoses, but I am unable to find other documentation of this status. Patient is a direct admit from [facility] inpatient status. FEN: Renal diet, BMP in the a.m., activity as tolerated Code status: Full code DVT prophylaxis: Currently on a heparin drip Disposition: Likely [facility] re[facility] Current visit: Yes Status: Acute Quality VTE Deep Vein Thrombosis/Pulmonary Embolism Present on Admission: Yes
[2019-01-25] MEDS: VANCOMYCIN 1,250 MG in SODIUM CHLORIDE 0.9% 500 ML 150 ML IV (23:04)
[2019-01-26] VITALS (13 sets, daily range): BP systolic 102–152; BP diastolic 71–82; PULSE 68–713; RESP 16–24; TEMP 36.5–37.4; O2SAT 94–98
[2019-01-26 04:21] LABS: PTT Partial Thromboplastin Tim 84 SECONDS (26.4-36.2)
[2019-01-26 04:23] LABS: Alanine Aminotransferase 30 IU/L (9-52); Albumin 3.5 g/dL (3.5-5.0); Albumin Globulin Ratio 1.3 (1.0-2.8); Alkaline Phosphatase 78 U/L (38-126); Aspartate Aminotransferase 26 IU/L (14-36); Bilirubin Total 0.6 mg/dL (0.2-1.3); Blood Urea Nitrogen 42 mg/dL (7-17); Calcium 8.9 mg/dL (8.4-10.2); Carbon Dioxide 27 mmol/L (22-32); Chloride 100 mmol/L (98-107); Estimated Glomerular Filt Rate 36.2 mL/min (>60); Globulin 2.7 g/dL (1.7-4.1); Glucose 145 mg/dL (80-110); HEMOLYSIS < 15 (0-50); Potassium 3.7 mmol/L (3.4-5.1); Sodium 135 mmol/L (137-145); Total Protein 6.2 g/dL (6.3-8.2)
[2019-01-26 04:50] LABS: Hematocrit 31.2 % (36-46); Hemoglobin 10.6 g/dL (12.0-16.0); Mean Corpuscular HGB Conc 34.1 % (30-36); Mean Corpuscular Hemoglobin 31.8 PG (26-34); Mean Corpuscular Volume 93.2 fL (80-100); Platelet Count 259 X10^3/uL (150-400); Red Blood Cell Count 3.35 X10^6/uL (4.0-5.2); Red Cell Distribution Width 14.7 % (11.6-14.8); White Blood Cell Count 4.4 X10^3/uL (4.5-11.0)
[2019-01-26 04:51] LABS: Add Manual Diff / Slide Review YES
[2019-01-26 05:02] LABS: Hemoglobin A1C% w Est Avg Glu 6.5 % (4.0-6.0)
[2019-01-26 06:54] LABS: Neutrophils Absolute Manual 2640 /uL (3000-5900); Total Cells Counted 100
[2019-01-26 06:55] LABS: Anisocytosis 1+; Hypochromasia 2+; Poikilocytosis 1+
--- NOTE | 2019-01-26 07:50 | P.PN_ITS ---
Subjective Date Patient Seen: 01/26/19 Interval history: Lorraine Parra is an 78-year-old woman with a past medical history significant for hypertension, hyperlipidemia, hypothyroidism and a longstanding history of m ultiple myeloma who was transferred back from after treatment for [facility]HEL[facility] secondary to ATN from recent viral illness, UTI and decreased PO intake. The patient is resting in bedside chair comfortably. She has a very apparent essential tremor today. She reports she feels overwhelmed but has no complaints overall. She denies headache, cough, shortness of breath, chest pain, abdominal pain, nausea, vomiting, fever, chills, dysuria, diarrhea or constipation. She is voiding via smith catheter and eliminating without difficulty. She is up ambulating with assistance and PT. Exam Vital Signs (past 8 hours): - 01/26/19 00:10 01/26/19 00:23 01/26/19 04:00 Temperature 98.7 F 98.7 F Pulse Rate 74 74 Respiratory Rate 20 18 Blood Pressure 152/78 H 136/77 Pulse Oximetry 94 95 94 Oxygen Delivery Method Room Air Oxygen Flow Rate 0 Narrative Exam Narrative: General: Elderly female sitting in bedside chair and in no acute distress, well-developed, well-nourished, appropriately interactive. HEENT: Normocephalic, atraumatic. External ears without defect. Pupils equal, round, and reactive to light. Anicteric sclerae, moist conjunctivae, and no lid lag. Neck: Supple with full range of motion. No lymphadenopathy or thyromegaly. Cardiovascular: Regular rate and rhythm without murmurs, rubs, or gallops appreciated. Port in left chest with dressing in place C/D/I. Pulmonary: Clear to auscultation bilaterallty without wheeze, rhonchi or crackles. Normal respiratory effort with no use of accessory muscles. Abdomen: Soft, bowel sounds present, nontender, nondistended. No hepatosplenomegaly or masses appreciated. Extremities: No clubbing, cyanosis, or edema. Skin: Normal temperature, turgor, and texture; no rash, ulcers, or subcutaneous nodules appreciated. Neurological: Cranial nerves grossly intact. Psychiatric: Depressed mood and flat affect. Alert and oriented x3. Objective Labs Result Diagrams: 01/26/19 04:05 01/26/19 04:05 Labs: Laboratory Results - last 24 hr 01/25/19 01/26/19 01/26/19 21:38 04:05 04:05 WBC RBC Hgb Hct MCV MCH MCHC RDW Plt Count Neut % (Auto) Lymph % (Auto) [place] % (Auto) Eos % (Auto) Baso % (Auto) Lymph # (Auto) [place] # (Auto) Baso # (Auto) Total Counted Seg Neutrophils % Band Neutrophils % Lymphocytes % (Manual) Atypical Lymphs % Monocytes % (Manual) Eosinophils % (Manual) Basophils % (Manual) Metamyelocytes % Myelocytes % Neutrophils # (Manual) RBC Morphology Hypochromasia Poikilocytosis Anisocytosis APTT 56 H 84 H* D Sodium Potassium Chloride Carbon Dioxide BUN Creatinine Estimated GFR BUN/Creatinine Ratio Glucose Hemoglobin A1c 6.5 H Calcium Total Bilirubin AST ALT Alkaline Phosphatase Total Protein Albumin Globulin Albumin/Globulin Ratio 01/26/19 01/26/19 04:05 04:05 WBC 4.4 L RBC 3.35 L Hgb 10.6 L Hct 31.2 L MCV 93.2 MCH 31.8 MCHC 34.1 RDW 14.7 Plt Count 259 Neut % (Auto) Not Reportable Lymph % (Auto) Not Reportable [place] % (Auto) Not Reportable Eos % (Auto) Not Reportable Baso % (Auto) Not Reportable Lymph # (Auto) Not Reportable [place] # (Auto) Not Reportable Baso # (Auto) Not Reportable Total Counted 100 Seg Neutrophils % 54.0 Band Neutrophils % 6.0 Lymphocytes % (Manual) 18.0 L Atypical Lymphs % 5.0 H Monocytes % (Manual) 7.0 Eosinophils % (Manual) 4.0 Basophils % (Manual) 2.0 H Metamyelocytes % 2.0 H Myelocytes % 2.0 H Neutrophils # (Manual) 2640 L RBC Morphology See below Hypochromasia 2+ H Poikilocytosis 1+ H Anisocytosis 1+ H APTT Sodium 135 L Potassium 3.7 Chloride 100 Carbon Dioxide 27 BUN 42 H Creatinine 1.40 H Estimated GFR 36.2 L BUN/Creatinine Ratio 30.0 H Glucose 145 H Hemoglobin A1c Calcium 8.9 Total Bilirubin 0.6 AST 26 ALT 30 Alkaline Phosphatase 78 Total Protein 6.2 L Albumin 3.5 Globulin 2.7 Albumin/Globulin Ratio 1.3 Assessment & Plan Assessment & Plan narrative: Lorraine Parra is an 78-year-old woman with a past medical history significant for hypertension, hyperlipidemia, hypothyroidism and a longstanding history of multiple myeloma who was transferred back from after treatment for MICHELLE secondary to ATN from recent viral illness, UTI and decreased PO intake. 1. Acute kidney injury, present on admission. Resolving. -Secondary to ATN from recent viral illness, UTI and decreased PO intake. Also likely contributing were nephrotoxic medications in renal impairment (propranolol, gabapentin, tizanidine, primidone). Ruled out postobstructive uropathy. -Previous renal ultrasound demonstrated prior right nephrectomy, small previously present cyst is again seen at the upper cortex of the anterior left kidney. The quality of visualization is very limited due to body habitus. Bladder is emptied by catheter in place. The study does establish that no hydronephrosis at the left kidney is present. -Creatinine peaked at 7.0 and did not receive dialysis. Initial creatinine on transfer back from was 1.4. Baseline creatinine on 12/13/2018 1.0. -Continue to avoid nephrotoxin agents. -Continue to monitor creatinine daily. 2. Acute Enterococcus UTI, present on admission. Resolving. -Urine culture grew enterococcus resistant to gentamicin and streptomycin. Patient completed course of vancomycin (6 doses total) upon admission. 3. Acute urinary retention, present on admission. Active. -Patient had acute urinary retention and failed voiding trial upon discharge/transfer from . -Continue smith catheter and may attempt another void trial. If unsuccessful may need outpatient urology follow up. 4. Multiple myeloma, present on admission. Active. -Disease progression has been indolent but more recently has had increased serum kappa light chains with recent resistance to Revlimid. -Continue acyclovir 200 mg twice daily. -Patient has started Nilaro and received 1 of 3 doses. Oncologist at [facility] recommended pulse dexamethasone. Discussed with patient's oncologist, Dr. Rousseau, who recommends Ninlaro 4 mg with dexamethasone 20 mg every Wednesday for 3 doses then 1 week off and repeat. 5. Essential tremor, chronic, present on admission. Stable. -Continue propranolol 160 mg QAM, 80 mg at noon and and 80 mg QPM. Discontinued primidone due to impaired renal clearance and being contraindicated. 6. Recent bilateral saddle pulmonary emboli. -Patient underwent lower extremity ultrasound study on 09/23/2018. No evidence of DVT found. The emboli source of the large bilateral saddle pulmonary embolism is not clear. -Discussed anticoagulation with patient's hair sample matcher/oncologist, Dr. Rousseau, who recommends discontinuing Eliquis due to renal impairment and starting warfarin. Started warfarin 5 mg daily and will bridge with Lovenox until therapeutic. Check INR daily. 7. Hypothyroidism, chronic, present on admission. Stable. -TSH pending. -Continue levothyroxine 150 mcg daily. 8. Peripheral neuropathy, present on admission. Stable. -Discontinued tizanidine, and gabapentin which were used presumably for neuropathy and muscle spasms/pain due to impaired renal clearance and being contraindicated. 9. History of renal cell carcinoma. -She had right nephrectomy 09/2008 for renal cell carcinoma, high grade, papillary, with chronic renal insufficiency. 10. Depression, present on admission. Stable. -Continue sertraline 100 mg daily. 11. Diabetes mellitus type 2, non-insulin using, present on admission. Stable. -Hemoglobin A1c 6.5%. -Discussed diabetic treatment and metformin is contraindicated due to renal impairment, therefore, control will be predominantly with lifestyle modification including: diet and exercise. May consider other anti hyperglycemics outpatient per PCP. -Continue renal and carbohydrate consistent diet. Disposition: Patient will likely discharge to group home facility for rehabilitation in the next 1-2 days. Quality VTE Deep Vein Thrombosis/Pulmonary Embolism Present on Admission: Yes
[2019-01-26] MEDS: ALBUTEROL 2.5 MG/3 ML NEB (ADULT) INH ×4 (08:01→20:15)
[2019-01-26] MEDS: DOCUSATE 100 MG CAPSULE PO ×2 (08:44→21:30)
[2019-01-26] MEDS: guaiFENesin ER 600 MG TAB PO ×2 (08:44→21:30)
[2019-01-26] MEDS: SERTRALINE 50 MG TABLET 100 MG PO (08:44)
[2019-01-26] MEDS: PROPRANOLOL 40 MG TABLET 160 MG PO (08:44)
[2019-01-26] MEDS: ACYCLOVIR 200 MG CAPSULE PO ×2 (08:44→21:30)
[2019-01-26] MEDS: LEVOTHYROXINE 150 MCG TABLET PO (08:44)
--- NOTE | 2019-01-26 08:53 | CM.DANOTE ---
Addendum entered by Christine Ravi R.N. 01/26/19 09:54: Discussed patient in rounds. She came directly from [facility] for placement. Inpatient status started as of the . Called [facility] at [facility], and she recognized the name. She will call back after she research. Left a message with patient's daughter, Gracie. Original Note: DCP: Case received, EMR reviewed and met with patient. Introduced self and role. DCP template completed with information currently available. Patient is an 78 year old female who admitted yesterday to the care of the hospitalist team. PCP: Dr. Knight Payer: confirmed: Medicare/[employer]. Patient came to hospital sent from Dr. Rousseau's office. Patient has history of Multiple Myeloma, and has gone through radiation. She has limited mobility. Patient had recently been at [facility] due to kidney failure. She has history of nephrectomy as well. Patient holds diagnosis of UTI, as well as acute kidney failure and urinary retention. Met briefly with patient. Pleasant, weak. She stated that she does live alone, but she does have caregivers in the home through [employer]. She has assist with meals, showers. Her daughter, Gracie, lives in [place] as well. She uses a walker and cane, and does not drive. She relies on caregivers for any appts. P: DCP to follow closely. Will see how she progresses here in hospital. She may need correction if she is here for a few days. Other option may be home health. Christine Ravi RN/Music Producer
[2019-01-26] MEDS: ENOXAPARIN 100 MG/ML SYRINGE 90 MG SUBCUT ×2 (09:41→21:30)
--- NOTE | 2019-01-26 11:48 | PT.IIE ---
Current Diagnoses Enterococcus as the cause of diseases classified elsewhere (01/25/19) Acute kidney failure with tubular necrosis (01/25/19) Urinary tract infection, site not specified (01/25/19) Other retention of urine (01/25/19) Surgical History (Last Reviewed 01/25/19 @ 22:56 by SHIRA Walsh) History of cholecystectomy (Acute) History of nephrectomy, right (Acute) History of tonsillectomy (Acute) Hx of appendectomy (Acute) Medical History (Last Updated 01/25/19 @ 23:34 by SHIRA Walsh) Inpatient management required (Acute) Acute urinary retention (Acute) ATN (acute tubular necrosis) (Acute) UTI (urinary tract infection) due to Enterococcus (Acute) Pulmonary embolus (Acute) Nausea (Acute) Multiple myeloma (Chronic) Depression (Acute) History of UTI (Acute) Hypertension (Acute) Multiple myeloma (Acute) Neuropathy (Acute) Renal cell carcinoma (Acute) Physical Therapy Inpatient Evaluation/Re-Eval M1 PT/OT-IP Prior Functional Status Start: 01/26/19 11:30 Freq: NEEDED Status: Active Protocol: Document 01/26/19 10:35 (Rec: 01/26/19 11:48 [email or web address]) Medical Review Prior Functional Status Medical History Reviewed Yes Communication Slow speech. able to make needs known Mobility and Gait Pt uses FWW at all times at home but rarely go out to community. Pt uses ramp from back door to enter the house since she has difficulty negotiating stairs for the front entrance. Activities of Daily Living and IADL's Pt has CG from [facility] 5times /week from 8am-2pm mon to fri. CG assists pt for cooking, showering, grocery shop, house cleaning and appointments. Social History Household Members caregiver none Living Arrangements House Number of Floors (Floors) One Floor Number of Stairs To Enter/Railing? 5STE without railings to front entrance. Ramp at back entrance. Home Environment Standard Height Toilet Walk in Shower Ramp Home Equipment Front Wheel Walker Raised Toilet Seat w/Armrests Hand Held Shower Grab Bars Near Toilet Grab Bars In Shower Employment Status Retired Additional Social History Comment Pt lives alone in a 1 level home in [place] [facility]. Dtr lives close by as well. Patient came to hospital sent from Dr. Rousseau's office. Patient has history of Multiple Myeloma, and has gone through radiation . She has limited mobility. Patient had recently been at [facility] due to kidney failure. She has history of nephrectomy as well. Patient holds diagnosis of UTI, as well as acute kidney failure and urinary retention. She basically homebound and uses a walker and cane, and does not drive. She relies on caregivers from [facility] for any appts, cooking, showering and house cleaning. CG comes in 5x/week 8am-2pm. Pt stated she also went to [facility] for 4 months last year due to pulmonary embolism in her kidney. M2 PT-IP Current Condition Start: 01/26/19 11:30 Freq: NEEDED Status: Active Protocol: Document 01/26/19 10:35 HH (Rec: 01/26/19 11:48 [email or web address]) Physical Therapy Current Condition Current Condition Evaluation Date 01/26/19 Treatment Diagnosis UTI, ATN, impaired gait and activity tolerance. Onset Date 01/25/19 Weight Bearing Status Weight Bearing Status Weight Bear as Tolerated M3 PT-IP Subjective Start: 01/26/19 11:30 Freq: NEEDED Status: Active Protocol: Document 01/26/19 10:35 HH (Rec: 01/26/19 11:48 [email or web address]) Subjective Physical Therapy Visit Type Type Initial Evaluation Visit Start Time 10:35 Visit Stop Time 11:05 Total Visit Minutes 30 Number of THERMODYNAMIC PHYSICIST Visits 0 Physical Therapy Visit Comments Patient Comments I feel a little better today. Patient Goals If i need to be d/c to SNF, i hope it will be [facility]. Therapy Pain Assessment Pain Present Pain Present Denied Pain M4 PT-IP Mobility and Gait Start: 01/26/19 11:30 Freq: NEEDED Status: Active Protocol: Document 01/26/19 10:35 HH (Rec: 01/26/19 11:48 [email or web address]) PT-Bed Mobility Assessment Rolling Type of Rolling Roll to Right Level of Assist Contact Guard Assistance Supine to Sit Supine to Sit Contact Guard Assistance Head of Bed Elevated Bedrails Sit to Supine Sit to Supine Contact Guard Assistance Head of Bed Elevated Bedrails Scooting Scooting to Edge of Bed Contact Guard Assistance PT-Transfer Assessment Sit to and From Stand Sit to and from Stand Contact Guard Assistance Use of Upper Extremities Equipment Transfer Assistive Device Gait Belt Front Wheeled Walker Orthotic/Prosthetic Devices or Brace: No Transfers Transfer Destination Bed Chair Bedside Commode Transfer Technique Stand Step Pivot Transfer Ability Level of Assist Contact Guard Assistance Use of Upper Extremities Comments Mobility Comments Pt got OOB and transferred herself to [facility] for BM with FWW and CGA. Pt was able to maintain good balance and steady. She was not able to stand for more than 1minute and requested to sit down often. Pt needed assistance for clean up after BW who was unable to reach behind to her buttock. Pt then transferred to bedside chair after toileting. Pt appeared fatigue after session. Gait Assessment Comments Gait Comments did not attempt due to fatigue Stair Climbing Assessment Comments Stair Climbing Comments did not attempt due to fatigue PT-Balance Assessment Sitting Balance and Reactions Static Sitting Balance Ability Normal Dynamic Sitting Balance Ability Normal Standing Balance and Reactions Static Standing Balance Ability Good Dynamic Standing Balance Ability Good Device Used FWW M5 PT-IP Objective Assessments Start: 01/26/19 11:30 Freq: NEEDED Status: Active Protocol: Document 01/26/19 10:35 (Rec: 01/26/19 11:48 [email or web address]) Orientation Orientation/Cognition Level of Alertness Alert Orientation Name Age Birthday Month Date Year Day of Week Place Situation Language Function Ability No Deficits Noted Safety Awareness Understands Safety Issues Memory Description No Deficits Noted Gross Range of Motion Upper Extremity ROM Assessment Within Functional Limits Lower Extremity ROM Assessment Within Functional Limits Strength Upper Extremity Strength Assessment Within Functional Limits Lower Extremity Strength Assessment Within Functional Limits Coordination Assessment Gross Coordination Gross Coordination WNL Assessment Finger to Nose Test Normal Performance Sensation Assessment Sensation Gross Sensation WNL Light Touch Intact Proprioception (Position) Intact Muscle Tone Muscle Tone WNL Yes M6 PT-IP Treatment Start: 01/26/19 11:30 Freq: NEEDED Status: Active Protocol: Document 01/26/19 10:35 (Rec: 01/26/19 11:48 [email or web address]) Physical Therapy Treatment Education Education Provided Safety M7 PT-IP Assessment and Plan Start: 01/26/19 11:30 Freq: NEEDED Status: Active Protocol: Document 01/26/19 10:35 (Rec: 01/26/19 11:48 [email or web address]) PT Summary Assessment and Plan Potential Rehabilitation Potential Good Status of Condition at Evaluation Stable Summary Impairments ROM Strength Balance Bed Mobility Transfers Gait Activity Tolerance Assessment Summary Pt is a pleasant 78 yo female admitted to due to UTI, ATN and increased weakness. Upon assessment, pt's VSS maintained stable at 130s/80s O2 Sat 95s. Pt showed significant decreased activity tolerance and was only able to perform BSC and chair stand pivot transfer. She was unable to stand long and requested multiple rest breaks . Pt c/o feeling cold afterwards and warm blankets were given. Pt is not safe to d/c home at this point due to extensive needs for ADLs and IADLs. Communicated with pt and pt understands her current condition and would like to FCC to improve mobility prior to d/c home. Goals Bed Mobility Goal Standby Assistance Transfer Goal Standby Assistance Front Wheeled Walker Gait Goal Standby Assistance Front Wheel Walker Gait Distance 100 Days to Meet Goals 5 Frequency of Treatment Frequency Of Treatment Once a Day Treatment Plan Physical Therapy Treatment Plan Bed Mobility Training Transfer Training Gait Training Therapeutic Exercise Balance Retraining Discharge Planning Other Recommendations and Next Treatment bed mob , transfer, gait Focus training as luz Recommendations To Nursing Amount of Assist Needed 1 Person Assist Discharge Recommendations PT Discharge Recommendations SNF Rehab
--- NOTE | 2019-01-26 13:50 | OT.IP.EVAL ---
Current Diagnoses Enterococcus as the cause of diseases classified elsewhere (01/25/19) Acute kidney failure with tubular necrosis (01/25/19) Other retention of urine (01/25/19) Past Medical History (Last Updated 01/25/19 @ 23:34 by SHIRA Walsh) Inpatient management required (Acute) Acute urinary retention (Acute) ATN (acute tubular necrosis) (Acute) UTI (urinary tract infection) due to Enterococcus (Acute) Pulmonary embolus (Acute) Nausea (Acute) Multiple myeloma (Chronic) Depression (Acute) History of UTI (Acute) Hypertension (Acute) Multiple myeloma (Acute) Neuropathy (Acute) Renal cell carcinoma (Acute) Surgical History (Last Reviewed 01/25/19 @ 22:56 by SHIRA Walsh) History of cholecystectomy (Acute) History of nephrectomy, right (Acute) History of tonsillectomy (Acute) Hx of appendectomy (Acute) Occupational Therapy Inpatient Evaluation/Re-Eval M1 PT/OT-IP Prior Functional Status Start: 01/26/19 11:30 Freq: NEEDED Status: Active Protocol: Document 01/26/19 13:50 SAMIRA (Rec: 01/26/19 16:04 SAMIRA [email or web address]) Medical Review Prior Functional Status Medical History Reviewed Yes Communication Slow speech. able to make needs known Mobility and Gait Pt uses FWW at all times at home but rarely go out to community. Pt uses ramp from back door to enter the house since she has difficulty negotiating stairs for the front entrance. Activities of Daily Living and IADL's Pt has CG from [facility] 5 times /week from 8am-2pm Mon- Fri. CG assists pt for cooking , showering, grocery shop, house cleaning and transport appointments. Prior Functional Level (Other details) Pt's daughter lives locally but has many health problems that limit her ability to assist pt. Pt states she sometimes comes on weekends to assist pt with meal prep. Note pt has been at [facility] since 01/18 then transferred here 01/25. Social History Household Members caregiver none Living Arrangements House Number of Floors (Floors) One Floor Number of Stairs To Enter/Railing? 5 DANIEL without railings to front entrance. Ramp at back entrance. Home Environment Standard Height Toilet Walk in Shower Ramp Home Equipment Front Wheel Walker Raised Toilet Seat w/Armrests Hand Held Shower Long Handled Sponge Long Handled Shoe Horn Animal Caretaker Supervisor Sock Aid Grab Bars Near Toilet Grab Bars In Shower Employment Status Retired Additional Social History Comment Patient originally hospitalized with UTI, acute kidney failure and urinary retention. Pt transferred to [facility] on 01/18 for possible dialysis, then transferred back to [facility] on 01/25/19. Patient has history of longstanding multiple myeloma controlled by medication and R nephrectomy due to cancer. Pt stated she was at [facility] for 4 months last year due to B saddle pulmonary embolism. M2 OT-IP Current Condition Start: 01/26/19 15:38 Freq: Status: Active Protocol: Document 01/26/19 13:50 PJM (Rec: 01/26/19 16:04 PJ [email or web address]) Occupational Therapy Current Condition Current Condition Evaluation Date 01/26/19 Treatment Diagnosis decreased activity tolerance, mobility, self care due to UTI , renal failure Diagnosis Onset Date 01/25/19 Post Operative Precautions Other Precautions fall risk, anxiety overlay M3 OT- IP Subjective and Pain Start: 01/26/19 15:38 Freq: Status: Active Protocol: Document 01/26/19 13:50 PJM (Rec: 01/26/19 16:04 PJ [email or web address]) OT- Subjective Occupational Therapy Visit Type Type Initial Evaluation Visit Start Time 13:29 Visit Stop Time 13:50 Total Visit Minutes 21 Notes Pt self limiting participation in any self care tasks this session. She adamantly declines any attempts at lower body dressing even with adaptive equipment. She appears to have an anxiety overlay. Occupational Therapy Visit Comments Patient Comments I just don't want to do that right now. Patient/Caregiver Goals to go back to [facility]. I like it there. OT Pain Assessment Pain When Pain Assessed After Treatment Pain Present Pain Present Denied Pain M4 OT- IP ADL's Start: 01/26/19 15:38 Freq: Status: Active Protocol: Document 01/26/19 13:50 PJM (Rec: 01/26/19 16:04 PJ [email or web address]) OT LIO-Mgla-Oxtmhpd General Evaluation Self-Feeding Ability Independent Comments OT Self-Feeding Comments per RN OT ADL-Grooming General Evaluation Grooming Ability Standby Assistance Areas Needing Assistance Face Washing OT ADL-Oral Care Comments Oral Care Comments pt declines this session OT ADL-Dressing Comments OT Dressing Comments Pt adamantly declines to attempt lower body dressing this session. She states she has a brasswind instrument repairer, sock aid and long shoe horn from previous stay at [facility] and knows how to use them. OT ADL-Toileting General Evaluation Toileting Ability Total Assistance Areas Needing Assistance Empty Catheter or Colostomy Comments OT Toileting Comments smith in place for urinary retention OT ADL-Bathing Comments OT Bathing Comments to be assessed as activity tolerance improves; note pt had caregiver assist with showering at home prior to admit M5 OT- IP IADL's Start: 01/26/19 15:38 Freq: Status: Active Protocol: Document 01/26/19 13:50 PJM (Rec: 01/26/19 16:04 PJM [email or web address]) OT-Instrumental Activities of Daily Living Deficits IADL Deficits Identified Deficits Home Safety Awareness Awareness of Need for Assistance at Home Good Awareness Medication Management Medication Management Comments pt states she sets up her own pillbox and manages own meds; unsure if caregivers provide supervision; no family here to confirm Money Management Money Management Comments pt states she manages her own finances; no family here to confirm Meal Preparation Meal Preparation Comments pt has caregiver assist at home 5 days/week; pt states she makes own meals on weekends, but I don't have much appetite. Bottle Feeder Bottle Feeder Caregiver Provides Assist Driving Driving Caregiver Provides Assist Driving Comments pt no longer drives M6 OT- IP Functional Cognition Start: 01/26/19 15:38 Freq: Status: Active Protocol: Document 01/26/19 13:50 PJM (Rec: 01/26/19 16:04 PJM [email or web address]) Cognitive Factors Limiting Selfcare Function Cognitive Ability Level of Alertness Alert Patient Orientation Name Place Situation Attention Span Ability Capable of Focused Attention Unable to Sustain Attention Ability to Follow Commands Able to Follow One Step Commands Memory Description Short Term Impaired Safety Awareness Underestimates Need for Assistance Problem Solving Ability Needs Assist to Identify Solutions Cognitive Comments Cognitive Assessment Comments Pt is vague historian at times and appears to have decreased insight into how much assist she will need at home. Appears to overestimate her own abilities then declines to actually demonstrate how she completes tasks such as lower body dressing. Suspect pt may not be eating adequately on weekends. OT- Vision and Hearing OT- Hearing Assessment OT- Hearing Assessment WFL OT- Vision Assessment Visual Acuity WFL Glasses For Reading Vision Assessment Comments Pt able to read wall clock and states she spends alot of time reading on her Enoch at home. M7 OT- IP Mobility and Balance Start: 01/26/19 15:38 Freq: Status: Active Protocol: Document 01/26/19 13:50 PJM (Rec: 01/26/19 16:04 PJM [email or web address]) OT-Transfer Assessment Comments Mobility Comments pt seen up in chair this session, see P.T. notes OT- Gait Assessment Comments Gait Ability Comments see P.T. notes OT- Balance Assessment Comments Other Balance Tests/Deviations/Treatment see P.T. notes : M8 OT- IP Objective Assessments Start: 01/26/19 15:38 Freq: Status: Active Protocol: Document 01/26/19 13:50 PJM (Rec: 01/26/19 16:04 PJM [email or web address]) OT Gross Range of Motion Upper Extremity Range of Motion Assessment Within Functional Limits OT Strength Upper Extremity Strength Assessment Within Functional Limits OT- Coordination Assessment Comments Coordination Comments Pt has mild BUE/hand tremor and head tremor this session which she states is longstanding. Pt denies difficulty with fine coordination tasks at home. OT-Muscle Tone Assessment Muscle Tone WNL Yes OT Sensation Assessment Comments Summary Comments Pt denies numbness/tingling in BUE and detects lt touch. Edema Edema Absent M9 OT- IP Assessment and Plan Start: 01/26/19 15:38 Freq: Status: Active Protocol: Document 01/26/19 13:50 PJM (Rec: 01/26/19 16:04 PJM [email or web address]) OT Summary Assessment and Plan Potential Rehabilitation Potential Fair Analytic Complexity at Evaluation Low Summary OT Impairments Strength Balance Coordination Functional Cognition Functional Mobility Grooming Dressing Toileting Bathing Toilet Transfers Shower Transfers Assessment Summary Low complexity OT assessment completed on this 78 yr old pt with hx of recent UTI with acute renal failure and urinary retention s/p R nephrectomy; hx of long standing multiple myeloma. Pt currently has significantly impaired activity tolerance and self limits participation in basic self care tasks such as lower body dressing today. She appears to have an anxiety overlay. Pt has performance deficits in all functional mobility/transfers, standing grooming, dressing, bathing and toileting. Pt is not safe to return home alone with caregiver assist 5 days/week at present. Recommend SNF for further rehab services to increase independence, safety, endurance in basic self care and functional mobility and light meal prep. Goals Grooming Goal Standby Assistance Dressing Goal Standby Assistance Toileting Goal Standby Assistance Bathing Goal Moderate Assistance Toilet Transfer Goal Standby Assistance Shower Transfer Goal Contact Guard Assistance Patient/Caregiver Education Goal Demonstrate Energy Conservation and Pacing Days to Meet Goals 7 Frequency of Treatment Frequency Of Treatment Once a Day Treatment Plan OT Treatment Plan ADL Training Functional Mobility Patient/Family Education Discharge Planning Discharge Recommendations OT Discharge Recommendations SNF Rehab
[2019-01-26] MEDS: PROPRANOLOL 40 MG TABLET 80 MG PO ×2 (13:55→16:14)
--- NOTE | 2019-01-26 14:15 | CM.DPC ---
DCP Cont: Yaneth from [facility] admissions stated that they could accept patient tomorrow. Let him know that a time would be confirmed with him tomorrow, after hospitalist places order. Let patient know update, and she was grateful that she is going to [facility]. Attempted to reach daughter again, left her message. P: DCP to continue to follow. She should be able to go to [facility] tomorrow as long as she is medically cleared. Christine Ravi RN/Consulting Solution Manager
[2019-01-26] MEDS: WARFARIN 5 MG TABLET PO (16:14)
--- NOTE | 2019-01-26 16:25 | PC.NURSE ---
Addendum entered by Alison Wiggins R.N. 01/26/19 21:27: MANAGER RELOCATION reports pt has refused to turn in bed and has refused to allow checking of hs blood sugar. Original Note: Addendum entered by Alison Wiggins R.N. 01/26/19 19:12: Pt mostly resting in bed with eyes closed unless staff interrupt pt. No signs of distress or discomfort. Original Note: Addendum entered by Alison Wiggins R.N. 01/26/19 16:36: Pt states very clearly does not want blood sugar checks. Original Note: Pt in bed awake, alert, conversant. Denies pain. No complaints verbalized. Portacath heplocked to left anterior chest. Room air 97% with clear lungs. No dyspnea at rest or with conversation. Lehman to gravity with clear, yellow urine. Pt verbalizes plan for discharge to SNF tomorrow. Encouraged to call for needs. Essential tremors. Meds in carrier with intact swallow.
[2019-01-26] MEDS: SODIUM CHLORIDE 0.9% FLUSH 10 ML IV (22:19)
[2019-01-27 02:00] VITALS: O2SAT 96
[2019-01-27 02:20] VITALS: BP 130/84; PULSE 73; RESP 18; TEMP 36.9; O2SAT 98
--- NOTE | 2019-01-27 02:40 | PC.NURSE ---
Pt. kept saying I'm not ready, just let me be, I'm not ready to wake up when asked question about her name and birthday. When pt. was asked if she know where she is at, she answered of course I know where I am at but would not say where she's at. Pt. also did not want to change position even when told of the consequence of probable developing pressure ulcer, states I am not going to get pressure ulcer. Pt. did deny pain when asked if she has pain issues. She also said that she is going to [place] today. Will monitor and check pt. frequently and change her position when she allows us. She seems to be able to change position by herself.
[2019-01-27 05:57] LABS: INR 1.2 (0.9-1.3); Prothrombin Time 13.5 SECONDS (10.1-12.7)
[2019-01-27] MEDS: LEVOTHYROXINE 150 MCG TABLET PO (05:57)
[2019-01-27 05:59] LABS: Add Manual Diff / Slide Review NO; Basophils Absolute Auto 0 /uL (0-100); Eosinophils Absolute Auto 100 /uL (0-450); Eosinophils Percent Auto 1.9 % (2-4); Hemoglobin 10.6 g/dL (12.0-16.0); Lymphocytes Absolute Auto 600 /uL (1100-4500); Lymphocytes Percent Auto 15.1 % (25-40); Mean Corpuscular HGB Conc 33.3 % (30-36); Mean Corpuscular Hemoglobin 31.4 PG (26-34); Mean Corpuscular Volume 94.4 fL (80-100); Monocytes Absolute Auto 500 /uL (0-900); Monocytes Percent Auto 11.7 % (3-14); Neutrophils Absolute Auto 3000 /uL (1500-7000); Neutrophils Percent Auto 70.3 % (50-75); Platelet Count 242 X10^3/uL (150-400); Red Blood Cell Count 3.39 X10^6/uL (4.0-5.2); Red Cell Distribution Width 14.8 % (11.6-14.8); White Blood Cell Count 4.3 X10^3/uL (4.5-11.0)
[2019-01-27 06:00] VITALS: BP 145/79; PULSE 74; RESP 16; TEMP 37; O2SAT 97
[2019-01-27 06:03] LABS: Alanine Aminotransferase 45 IU/L (9-52); Albumin 3.5 g/dL (3.5-5.0); Albumin Globulin Ratio 1.3 (1.0-2.8); Alkaline Phosphatase 84 U/L (38-126); Aspartate Aminotransferase 36 IU/L (14-36); BUN Creatinine Ratio 26.9 (6-22); Bilirubin Total 0.7 mg/dL (0.2-1.3); Blood Urea Nitrogen 35 mg/dL (7-17); Calcium 8.7 mg/dL (8.4-10.2); Carbon Dioxide 28 mmol/L (22-32); Chloride 99 mmol/L (98-107); Estimated Glomerular Filt Rate 39.4 mL/min (>60); Globulin 2.6 g/dL (1.7-4.1); Glucose 129 mg/dL (80-110); HEMOLYSIS < 15 (0-50); Magnesium 1.4 mg/dL (1.6-2.3); Potassium 3.5 mmol/L (3.4-5.1); Sodium 136 mmol/L (137-145); Total Protein 6.1 g/dL (6.3-8.2)
[2019-01-27 07:46] VITALS: BP 146/77; PULSE 75; RESP 16; TEMP 36.8; O2SAT 97
--- NOTE | 2019-01-27 08:33 | P.DS_ITS ---
History of Present Illness Date Patient Seen: 01/25/19 Chief complaint: Med/Surg Narrative: Written by Korin SILVA: Lorraine Parra is an 78-year-old woman with a past medical history significant for hypertension, hyperlipidemia, hypothyroidism and a longstanding history of multiple myeloma who was directly admitted from Dr. Rousseau's office for worsening cough thought to have probable pneumonia and mildly altered mental status. Lorraine Parra was directly admitted from Dr. Rousseau's office for worsening cough thought to have probable pneumonia and mildly altered mental status. -Initial creatinine 6.3 with eGFR 6. Potassium 3.3. Baseline creatinine on 12/13/2018 1.0. In regard to her multiple myeloma, she had been treated with Revlimid and had been stable for many years. She also had multiple courses of radiation to areas of progression over that time. She previously has been on Zometa but can't remember how long ago that was stopped. At her last visit here, she is found to have evidence of progression with increase in her serum free light chains. It was planned to start her on Ninlaro. She has received the pills but has not started taking them. Over the last few weeks, she was admitted to [facility] for influenza. Since her hospital discharge, she initially was improving but then her symptoms recurred. She has very limited mobility. She reports that she has not been urinating for the last several days. She has had some low-grade fevers, as well as, a persistent cough. Her family notes that her mental status has been somewhat confused. Upon my interview, she is able to give limited history but has slow mentation and somnolent, therefore, extremely limited. She was directly admitted from Dr. Rousseau's office and was found to be in acute renal failure with a creatinine of 6.3 and a GFR of 6. She has history of right nephrectomy 09/2008 for renal cell carcinoma, high grade papillary, with chronic renal insufficiency. Her most recent creatinine was 1.0 on 12/13/2018. The patient endorses headache, cough, decreased urination, and chronic neuropathy of lower extremities. She denies shortness of breath, chest pain, abdominal pain, nausea, vomiting, fever, chills, dysuria, diarrhea or constipation. On 01/18/19, she was transferred to [facility] for worsening renal failure with the expectation that the patient may need dialysis. -Renal ultrasound demonstrated prior right nephrectomy, small previously present cyst is again seen at the upper cortex of the anterior left kidney. The quality of visualization is very limited due to body habitus. Bladder is emptied by catheter in place. The study does establish that no hydronephrosis at the left kidney is present. Her IV fluids were continued at 75 mL/hr per recommendation of park warden at . Likely multifactorial and due to: Nephropathy secondary to multiple myeloma versus UTI versus medication (propranolol, gabapentin, tizanidine, primidone). Ruled out postobstructive uropathy. Urinalysis appears grossly infected with 10-30 WBC, moderate bacteria, leukocyte esterase, nitrate negative and the urine culture was pending at the time of transfer. Consulted with [facility], Dr. Trip Weller, and Dr. Peña, hospitalist who accepted the transfer of patient with the possibility she may need temporary/emergent dialysis. On 01/25/19, [facility] While [facility] her creatinine peaked at 7 and then down trended before treatment of her multiple myeloma, it was thought to be more consistent with acute tubular necrosis due to hypovolemia with recent illness and poor oral intake. The patient was discharged with a Smith due to failing a voiding trial on the day of discharge. she did have an Enterococcus UTI and was started on vancomycin of which she will receive her last dose tonight. While at [facility] oncologist Dr. Ashleigh Henson recommended a dexamethasone pulse for 4 days followed by the patient's home prescription of known large IO which occurs on Sundays, which this Wednesday's will be her 2nd of 3 doses. Apixaban for a saddle embolism that she has had since July of 2018 was discontinued due to her renal impairment and she was started on a heparin drip which continued when she was transferred. Currently she is receiving 1100 units/hour. The patient is a stoic historian and minimizes her symptoms. She denies chest pain, no shortness of breath with inspiration or expiration, current weight using a Smith because she states she was unable to urinate, she states that she has both diarrhea and constipation and takes Lomotil for this. She does endorse being fatigued and finds it difficult to maintain a conversation with me or her nurse. Discharge Providers Date of admission: 01/25/19 10:59 Discharge Date: 01/27/19 Primary care physician: Issa Knight MD Consults: 01/25/19 15:56 Consult to Dietitian, Adult Routine Comment: Reason For Exam: assessed at high risk 01/25/19 21:04 Consult to Discharge Planning Routine Comment: 01/26/19 08:40 Consult to Occupational Therapy Evaluate & Treat Comment: Physician Instructions: Evaluate and treat Consult to Physical Therapy Evaluate & Treat Comment: Physician Instructions: Evaluate and Treat Discharge provider: Shantel Ortiz DO Summary Hospital Course: Lorraine Parra is an 78-year-old woman with a past medical history significant for hypertension, hyperlipidemia, hypothyroidism and a longstanding history of multiple myeloma who was transferred back from after treatment for MICHELLE secondary to ATN from recent viral illness, UTI and decreased PO intake. 1. Acute kidney injury of solitary kidney, present on admission. Resolving. -Secondary to ATN from recent viral (influenza) illness, UTI and decreased PO intake. Also likely contributing were nephrotoxic medications in renal impairment (propranolol, gabapentin, tizanidine, primidone). Ruled out post- obstructive uropathy. Not secondary to MM. -Previous renal ultrasound demonstrated prior right nephrectomy, small previously present cyst is again seen at the upper cortex of the anterior left kidney. The quality of visualization is very limited due to body habitus. Bladder is emptied by catheter in place. The study does establish that no hydronephrosis at the left kidney is present. -Creatinine peaked at 7.0 and did not receive dialysis. Initial creatinine on transfer back from was 1.4 and trending down to normal. Baseline creatinine on 12/13/2018 1.0. -IV fluids were continued until patient was adequately hydrated at . Encouraged PO intake of fluids. -Continued to avoid nephrotoxin agents. -Continued to monitor creatinine daily. 2. Acute Enterococcus UTI, present on admission. Resolved. -Urine culture grew enterococcus resistant to gentamicin and streptomycin. Patient completed course of vancomycin (7 doses total) upon admission. 3. Acute urinary retention, present on admission. Active. -Patient had acute urinary retention and failed voiding trial upon discharge/transfer from . -Removed smith catheter and patient urinated. Continue to monitor outpatient. 4. Multiple myeloma, present on admission. Active. -Disease progression has been indolent but more recently has had increased serum kappa light chains with recent resistance to Revlimid. -Continue acyclovir 200 mg twice daily. -Patient has started Nilaro and received 1 of 3 doses. Oncologist at [facility] recommended pulse dexamethasone. Discussed with patient's oncologist, Dr. Rousseau, who recommends Ninlaro 4 mg with dexamethasone 20 mg every Wednesday for 3 doses then 1 week off and repeat. 5. Essential tremor, chronic, present on admission. Stable. -Continue propranolol 160 mg QAM, 80 mg at noon and and 80 mg QPM. Discontinued primidone due to impaired renal clearance and being contraindicated. 6. Recent bilateral saddle pulmonary emboli. -Patient underwent lower extremity ultrasound study on 09/23/2018. No evidence of DVT found. The emboli source of the large bilateral saddle pulmonary embolism is not clear. -Discussed anticoagulation with patient's inspector general/oncologist, Dr. Rousseau, who recommends discontinuing Eliquis due to renal impairment and starting warfarin. Started warfarin 5 mg daily and will bridge with Lovenox until peut. Check INR daily. 7. Hypothyroidism, chronic, present on admission. Stable. -TSH pending. -Continued levothyroxine 150 mcg daily. 8. Peripheral neuropathy, present on admission. Stable. -Discontinued tizanidine and gabapentin for neuropathy and muscle spasms/pain due to impaired renal clearance and being contraindicated. 9. History of renal cell carcinoma. -She had right nephrectomy 09/2008 for renal cell carcinoma, high grade, papillary, with chronic renal insufficiency. 10. Depression, present on admission. Stable. -Continued sertraline 100 mg daily. 11. Diabetes mellitus type 2, non-insulin using, present on admission. Stable. -Hemoglobin A1c 6.5%. -Discussed diabetic treatment and metformin is contraindicated due to renal impairment, therefore, control will be predominantly with lifestyle modification including: diet and exercise. May consider other anti-hyperglycemics or continuing lantus 5 units subQ daily (which was used during acute illness) outpatient per PCP. -Continued renal and carbohydrate consistent diet. Status at Discharge Functional status at discharge: uses cane/walker Overall status at discharge: patient is progressing back to baseline Exam Vital Signs (past 8 hours): - 01/27/19 02:00 01/27/19 02:20 01/27/19 06:00 Temperature 98.4 F 98.6 F Pulse Rate 73 74 Respiratory Rate 18 16 Blood Pressure 130/84 145/79 H Pulse Oximetry 96 98 97 01/27/19 07:46 Temperature 98.3 F Pulse Rate 75 Respiratory Rate 16 Blood Pressure 146/77 H Pulse Oximetry 97 Oxygen Delivery Method Room Air Oxygen Flow Rate 0 Objective Labs Result Diagrams: 01/27/19 05:40 01/27/19 05:40 Labs: Laboratory Results - last 24 hr 01/27/19 01/27/19 01/27/19 05:40 05:40 05:40 WBC 4.3 L RBC 3.39 L Hgb 10.6 L Hct 32.0 L MCV 94.4 MCH 31.4 MCHC 33.3 RDW 14.8 Plt Count 242 Neut % (Auto) 70.3 Lymph % (Auto) 15.1 L Gooding % (Auto) 11.7 Eos % (Auto) 1.9 L Baso % (Auto) 1.0 Neut # (Auto) 3000 Lymph # (Auto) 600 L Gooding # (Auto) 500 Eos # (Auto) 100 Baso # (Auto) 0 PT 13.5 H INR 1.2 Sodium 136 L Potassium 3.5 Chloride 99 Carbon Dioxide 28 BUN 35 H Creatinine 1.30 H Estimated GFR 39.4 L BUN/Creatinine Ratio 26.9 H Glucose 129 H Calcium 8.7 Magnesium 1.4 L Total Bilirubin 0.7 AST 36 ALT 45 Alkaline Phosphatase 84 Total Protein 6.1 L Albumin 3.5 Globulin 2.6 Albumin/Globulin Ratio 1.3 Discharge Plan Discharge Plan Patient Disposition: SNF Transfer to: [facility] Under care of provider: Dr. Sanders Transportation: Facility vehicle Labs: BMP in 1 week, INR daily I certify the postop hospital assisted care is medically necessary on a continuing basis for any conditions for which he/ she received care during this hospitalization.: Yes The receiving facility has agreed to accept transfer and provide medical treatment.: Yes Discharge Med Rec/Prescriptions Prescriptions: New dexamethasone 4 mg Tablet 20 mg PO Gamboa@0900 Qty: 10 RF: 0 enoxaparin [Lovenox] 100 mg/mL Syringe 90 mg subcut BID Qty: 20 RF: 0 warfarin [Coumadin] 5 mg Tablet 5 mg PO 1700 Qty: 30 RF: 0 Continued multivitamin [Multiple Vitamins] 1 EACH tablet 1 tab PO QDAY Qty: 0 RF: 0 propranolol 80 MG tablet 160 mg PO QAM Qty: 0 RF: 0 guaifenesin 600 MG tablet extended release 12hr 600 mg PO BID Qty: 0 RF: 0 albuterol sulfate 2.5 MG/3 ML solution for nebulization 1 neb INH QID Qty: 0 RF: 0 clobetasol-emollient 0.05 % cream 0.05 pump Topical BID Qty: 0 RF: 0 melatonin 1 mg Tablet 1 mg PO BEDTIME PRN (Reason: Insomnia) RF: 0 sertraline 100 mg Tablet 100 mg PO DAILY RF: 0 omeprazole 40 mg Capsule,Delayed Release(Dr/Ec) 20 mg PO DAILY RF: 0 levothyroxine 150 mcg Tablet 150 mcg PO DAILY RF: 0 diclofenac sodium 3 % Gel 0.5 g topical BID RF: 0 acetaminophen 325 mg Tablet 650 mg PO Q8H RF: 0 propranolol 80 mg Tablet 80 mg PO 1200,1500 RF: 0 cyanocobalamin (vitamin B-12) 1,000 mcg Tablet 1,000 mcg PO DAILY RF: 0 acyclovir 200 mg Capsule 200 mg PO BID RF: 0 insulin glargine 100 unit/mL (3 mL) Insulin Pen 5 units subcut DAILY RF: 0 albuterol sulfate 2.5 mg /3 mL (0.083 %) Solution For Nebulization 3 ml Inhalation Q4H PRN (Reason: shortness of breath) RF: 0 benzonatate 100 mg Capsule 100 mg PO TID PRN (Reason: other) RF: 0 ixazomib 4 mg Capsule 4 mg PO QWEEK Qty: 0 RF: 0 Changed oxycodone-acetaminophen 5-325 mg Tablet 1 tab PO Q4H MDD 4000mg acetaminophen PRN (Reason: Pain (Scale Score 7-10)) Qty: 20 RF: 0 Follow up/Referrals: Issa Knight MD [Primary Care Provider] - Discharge Health Status Brief summary of current health status: The patient was admitted for acute kidney injury secondary to recent viral illness, UTI, decreased p.o. intake and several renally toxic medications. She was transferred to [facility] for possible temporary dialysis which she did not require. She was transferred back and kidney injury has almost completely resolved. She has a history of saddle pulmonary emboli in July 2018 previously on Eliquis (now contraindicated due to degree of renal impairment with solitary kidney). Patient is on Lovenox 90 mg twice daily to bridge to warfarin. Continue warfarin 5 mg daily at night with daily INR checks. May adjust warfarin dose as needed to get patient therapeutic 2.0-3.0 then stop lovenox. She has multiple myeloma and is on an oral chemotherapy agent called Ninlaro 4 mg with dexamethasone 20 mg every Wednesday x 3 doses then 1 week off and repeat (this Monday 01/29 will be dose # 2 of 3). Patient will need to follow-up with Oncologist Dr. Rousseau in 1-2 weeks. Multidrug resistant organism: No MDRO Precautions: [place] Provider Discharge Instructions Diet: Carb-consistent/Diabetic and Low-protein/Renal Activity: Activity as tolerated with FWW and PT/OT Skin/Wound/Dressing Care Skin care: Please continue good talita care / hygiene. [facility] Rehab type: Physical therapy and Occupational therapy Discharge Data Primary Care Provider: Issa Knight Attending Provider: Shantel Ortiz Admit Date/Time: 01/25/19 10:59 Discharges patient from system. Discharge Date/Time: 01/27/19 14:55 Quality VTE Deep Vein Thrombosis/Pulmonary Embolism Present on Admission: Yes
[2019-01-27 08:55] VITALS: O2SAT 97
[2019-01-27] MEDS: SODIUM CHLORIDE 0.9% 500 ML 1000 ML IV (09:00)
[2019-01-27] MEDS: ENOXAPARIN 100 MG/ML SYRINGE 90 MG SUBCUT (09:03)
[2019-01-27] MEDS: DOCUSATE 100 MG CAPSULE PO (09:03)
[2019-01-27] MEDS: ACYCLOVIR 200 MG CAPSULE PO (09:03)
[2019-01-27] MEDS: guaiFENesin ER 600 MG TAB PO (09:03)
[2019-01-27] MEDS: PROPRANOLOL 40 MG TABLET 160 MG PO (09:03)
[2019-01-27] MEDS: SERTRALINE 50 MG TABLET 100 MG PO (09:03)
[2019-01-27] MEDS: SODIUM CHLORIDE 0.9% FLUSH 10 ML IV (09:03)
--- NOTE | 2019-01-27 09:08 | CM.DPC ---
Addendum entered by Laura Padilla LPN 01/28/19 09:27: Checked in this morning with Cristal and RN Orin Montana The chemo med was delivered last evening and Cristal came over to , picked up the medication and took it back to [facility]. Original Note: Addendum entered by Laura Padilla LPN 01/27/19 14:26: Have spoken again with RN Michael Bell. He just was was dated by that the plan is now to sprinkler installer medication this afternoon to . The medication will be given to the Tati Coordinator to be placed in the safe in their office. This DCPlanner will check in tomorrow morning with the RN Coordinator and make sure that [facility] receives the medication. (dose not due until WednesdayJanuary 29.) Original Note: Addendum entered by Laura Padilla LPN 01/27/19 12:20: Dr. Ortiz expressed some concerns re the need for close managament of pt at [facility] and especially the need for daily followup of coumadin with daily labs. She agreed to call [facility] medical front desk coordinator: Dr. Lemons for a doc to doc hand off discussion. Original Note: Addendum entered by Laura Padilla LPN 01/27/19 11:34: Cristal has ok'd pt for [facility] today. Pt does have an outstanding bill from her last visit there as she stayed on for a few days after Medicare gave a denial of further payment notice. She noted this has happened in the past and that pt and her daughter Gracie always pay this. [facility] will follow up with them at some point after admission. RN coordinator Ray has located the chemo medication, still at , and will send it on to so that team can get it to [facility]. Cristal and RICKY Bowman are aware and agreeable to plan. (this medication had been brought in from home by Gracie when pt admitted to ). Had lengthy phone conversation with Gracie. She clarifies her correct phone number as the [phone]. She says the one has is very old and that she has updated the hospital re this in the past. Will alert [facility] via outlook email now with correct info. She had many questions re pt's overall condition. Went over Dr. Ortiz's d/c summary information and she said she found this very helpful. Discussed AD. She says her mother at this point continues to wish to be kept alive no matter what it takes but that she sees that her mother's thinking processes might be deteriorating as her illnesses progress. She does say that her mother has told her that if she cannot speak for herself she does trust Gracie to make the best decisions for her. She is encouraged to continue this discussion with the snf team. All orders are now in place. [facility] will pick pt up at 1430 via w/c van. Will follow prn until pt leaves. Original Note: DCP: continued: case received and spoke with Dr. Ortiz. She states pt is ready for a d/c to [facility] this afternoon. She has ordered the smith catheter out and a void trial. She plans to reinsert smith if pt fails this. Pt will need to continue her oral chemo medication, started at [facility] and at a weekly (every Wednesday x 3 with a break on Wednesday). Gracie/daughter will need to bring this in to the snf. Have left a vm for Gracie this morning with a request for a call back. Spoke also with pt. She is agreeable to the [facility] plan. Says she did speak last evening with Gracie but was unsure what Gracie knew about the plan for today. She does give a cell # for Gracie: [phone] ( # on our CM face sheet has only home listed). Will try this number now. Pt does appear very weak, she speaks haltingly, says this has all been very hard. Will follow up later today with updates to pt and to [facility] Jessica. Just spoke with [facility]. She was not aware of the chemo medication but ok's this as long as Gracie is able to provide this to them. She also states her billing office says pt has an outstanding bill with them. Reminded her that pt has Medicare and for [employer]. She is going to check to make sure the [facility] account associate is aware of the . PASRR: completed yesterday by CAROL Divya: is faxed to [facility] in prep for the pending d/c this afternoon. Will wait to hear from [facility] for final ok.
[2019-01-27 10:06] LABS: Thyroid Stimulating Hormone 5.07 uIU/mL (0.47-4.68)
[2019-01-27 11:00] VITALS: BP 139/82; PULSE 63; RESP 16; TEMP 37.1; O2SAT 98
--- NOTE | 2019-01-27 12:26 | CM.DPC ---
DCP Cont: Faxed discharge orders and summary to [facility] at fax # [phone]. Fax confirmation scanned in. Also, obtained pager # for Dr. Sanders at [facility] so that Dr. Ortiz could do a [id number] on this patient. Gave the number to Dr. Ortiz ([phone]). Milana Zamarripa, [employer] Worker
[2019-01-27] MEDS: PROPRANOLOL 40 MG TABLET 80 MG PO (12:39)
--- NOTE | 2019-01-27 14:11 | PC.NURSE ---
Discharge Report called to luis alberto at [facility]. Pt's chemo meds were at , they will send it to [facility] and will coordinate transfer to [facility]. Luis Alberto aware. PIV removed and Port deaccessed prior to d/c. pt had episode of icontinence, bowel and assumed bladder, pt unsure. Bladder scanned 2x after incontinence and was 96 and 80 ml. aware and ok to keep smith out. [facility] to continue to monitor and place smith if bladder scan >400 ml. pt up with 1 person assist to [facility]. left with all belongings. transfered to [facility] via cabulance.
--- NOTE | 2019-01-27 15:38 | CM.SWNOTE ---
CLINICAL TRIALS MANAGER Discharge Plan, Cont. Activity: CLINICAL TRIALS MANAGER met briefly with pt to check-in re: coping and understanding of discharg plan. Pt is known to this CLINICAL TRIALS MANAGER though her treatment in the Oncology department. Pt presents as significantly more cognitively impaired than she had been prior to this last hospitalization. She did not recoginize this CLINICAL TRIALS MANAGER, and was unable to clearly explain her knowledge of why she had been hospitalized, and what the plan would be moving forward. She did understand that she would be going to [facility], and that her Oncologist was Dr. Rousseau. Pt has remained adamant to acute care staff that she wants all measures done, and wants to remain a full code, full treatment. Dtr has expressed feeling very frustrated and helpless about this, especially given pt's functional/cognitive decline and memory impairments. She does appear comfortable and content. Plan: CLINICAL TRIALS MANAGER will f/u with dtr next week re: advance directives, POLST and offer assistance in meeting with her and patient to discuss this at patient's next Oncology appointment.
== END 2019-01-27 14:55 | DRG 682 ==
PROVIDERS: Nurse Practitioner Family; Admitting Provider Internal Medicine; Family Provider Internal Medicine; PCP Internal Medicine; Visit Provider Internal Medicine
DX: N17.0 Acute kidney failure with tubular necrosis (principal); I26.92 Saddle embolus of pulmonary artery without acute cor pulmonale; C90.00 Multiple myeloma not having achieved remission; N39.0 Urinary tract infection, site not specified; B95.2 Enterococcus as the cause of diseases classified elsewhere; R33.9 Retention of urine, unspecified; I10 Essential (primary) hypertension; E78.5 Hyperlipidemia, unspecified; E03.9 Hypothyroidism, unspecified; R41.0 Disorientation, unspecified; G25.0 Essential tremor; G62.9 Polyneuropathy, unspecified; F32.9 Major depressive disorder, single episode, unspecified; E11.9 Type 2 diabetes mellitus without complications
CPT/HCPCS: 36415; 36591; 80053; 82962; 83036; 83735; 84443; 85025; 85610; 85730; 94640; 97162; 97165; J1644; J1650; J7613

== ENCOUNTER → 2019-02-17 09:16 | Outpatient (REF) | payer SELFPAY ==
[2019-01-25 15:42] VITALS: BMI 38.5
[2019-02-17 09:41] LABS: INR 2.7 (0.9-1.3); Prothrombin Time 31.4 SECONDS (10.1-12.7)
== END ==
LOC: LAB 09:16
PROVIDERS: Family Provider Internal Medicine; PCP Internal Medicine; Visit Provider Hospitalist
DX: Z79.01 Long term (current) use of anticoagulants (principal)
CPT/HCPCS: 36415; 85610; 99214

== ENCOUNTER → 2019-03-06 09:25 | Outpatient (ROUT) | payer MEDICARE, OTHER, SELFPAY ==
[2019-03-06 10:40] LABS: INR 1.5 (0.9-1.3)
== END ==
PROVIDERS: Family Provider Internal Medicine; PCP Internal Medicine; Visit Provider Internal Medicine
DX: Z79.01 Long term (current) use of anticoagulants (principal)
CPT/HCPCS: 36415; 85610

== ENCOUNTER → 2019-03-07 19:47 | Outpatient (ROUT) | payer MEDICARE, OTHER, SELFPAY ==
[2019-03-07 19:49] LABS: RBC Urine None Seen (0-5/HPF)
[2019-03-07 19:51] LABS: Appearance Urine UA CLOUDY; Bilirubin Urine UA NEGATIVE (NEGATIVE); Color Urine UA YELLOW; Glucose Urine UA NEGATIVE (Negative); Ketones Urine UA NEGATIVE (NEGATIVE); Leukocyte Esterase Urine UA 2+ (NEGATIVE); Nitrite Urine UA POSITIVE (Negative); Occult Blood Urine UA NEGATIVE (Negative); Protein Urine UA TRACE (Negative); Urobilinogen Urine UA 0.2 E.U./dL (0.2)
[2019-03-07 20:22] LABS: WBC Urine 30-100/HPF (0-5/HPF)
[2019-03-07 20:23] LABS: Bacteria Urine Many (>30); Culture Indicated Urine Specimen Cultured
== END ==
PROVIDERS: Family Provider Internal Medicine; PCP Internal Medicine; Visit Provider Internal Medicine
DX: C90.00 Multiple myeloma not having achieved remission (principal); R53.1 Weakness
CPT/HCPCS: 81001; 87077; 87086; 87186

== ENCOUNTER → 2019-03-15 08:21 | Outpatient (ROUT) | payer MEDICARE, OTHER, SELFPAY ==
[2019-03-15 10:59] LABS: INR 2.8 (0.9-1.3); Prothrombin Time 33.4 SECONDS (10.1-12.7)
== END ==
PROVIDERS: Family Provider Internal Medicine; PCP Internal Medicine; Visit Provider Internal Medicine
DX: Z79.899 Other long term (current) drug therapy (principal)
CPT/HCPCS: 36415; 85610

== ENCOUNTER → 2019-03-22 08:58 | Outpatient (ROUT) | payer MEDICARE, OTHER, SELFPAY ==
[2019-03-22 10:20] LABS: INR 3.1 (0.9-1.3); Prothrombin Time 36.3 SECONDS (10.1-12.7)
== END ==
PROVIDERS: Family Provider Internal Medicine; PCP Internal Medicine; Visit Provider Internal Medicine
DX: I74.01 Saddle embolus of abdominal aorta (principal)
CPT/HCPCS: 36415; 85610

== ENCOUNTER → 2019-03-24 08:09 | Outpatient (ROUT) | payer MEDICARE, OTHER, SELFPAY ==
[2019-03-24 10:51] LABS: INR 3.3 (0.9-1.3); Prothrombin Time 38.9 SECONDS (10.1-12.7)
== END ==
PROVIDERS: Family Provider Internal Medicine; PCP Internal Medicine; Visit Provider Internal Medicine
DX: I74.01 Saddle embolus of abdominal aorta (principal)
CPT/HCPCS: 36415; 85610

== ENCOUNTER → 2019-03-27 07:51 | Outpatient (ROUT) | payer MEDICARE, OTHER, SELFPAY ==
[2019-03-27 09:15] LABS: INR 3.4 (0.9-1.3); Prothrombin Time 40.6 SECONDS (10.1-12.7)
== END ==
PROVIDERS: Family Provider Internal Medicine; PCP Internal Medicine; Visit Provider Internal Medicine
DX: I74.01 Saddle embolus of abdominal aorta (principal)
CPT/HCPCS: 36415; 85610

== ENCOUNTER → 2019-03-29 07:35 | Outpatient (ROUT) | payer MEDICARE, OTHER, SELFPAY ==
[2019-03-29 08:25] LABS: Add Manual Diff / Slide Review NO; Basophils Absolute Auto 0 /uL (0-100); Basophils Percent Auto 0.7 % (0-2); Eosinophils Absolute Auto 100 /uL (0-450); Eosinophils Percent Auto 2.5 % (2-4); Hematocrit 27.4 % (36-46); Hemoglobin 9.1 g/dL (12.0-16.0); Lymphocytes Absolute Auto 600 /uL (1100-4500); Lymphocytes Percent Auto 15.4 % (25-40); Mean Corpuscular HGB Conc 33.3 % (30-36); Mean Corpuscular Hemoglobin 31.9 PG (26-34); Mean Corpuscular Volume 95.7 fL (80-100); Monocytes Absolute Auto 600 /uL (0-900); Monocytes Percent Auto 16.6 % (3-14); Neutrophils Absolute Auto 2300 /uL (1500-7000); Neutrophils Percent Auto 64.8 % (50-75); Platelet Count 170 X10^3/uL (150-400); Red Blood Cell Count 2.86 X10^6/uL (4.0-5.2); Red Cell Distribution Width 16.7 % (11.6-14.8); White Blood Cell Count 3.6 X10^3/uL (4.5-11.0)
[2019-03-29 08:36] LABS: Alanine Aminotransferase 27 IU/L (9-52); Albumin 3.3 g/dL (3.5-5.0); Albumin Globulin Ratio 1.3 (1.0-2.8); Alkaline Phosphatase 74 U/L (38-126); Aspartate Aminotransferase 16 IU/L (14-36); BUN Creatinine Ratio 26.9 (6-22); Bilirubin Total 0.4 mg/dL (0.2-1.3); Blood Urea Nitrogen 43 mg/dL (7-17); Calcium 8.9 mg/dL (8.4-10.2); Carbon Dioxide 24 mmol/L (22-32); Chloride 105 mmol/L (98-107); Globulin 2.6 g/dL (1.7-4.1); Glucose 133 mg/dL (80-110); HEMOLYSIS < 15 (0-50); Potassium 4.9 mmol/L (3.4-5.1); Sodium 136 mmol/L (137-145); Total Protein 5.9 g/dL (6.3-8.2)
[2019-03-31 16:39] LABS: Free Kappa Light Chain 1431.2 mg/L (3.3-19.4); Free Kappa/ Lambda Ratio 99.88 (0.26-1.65); Free Lambda 14.3 mg/L (5.7-26.3)
[2019-03-31 23:54] LABS: Albumin 3.2 g/dL (3.8-4.8); Alpha 1 Globulin 0.3 g/dL (0.2-0.3); Alpha 2 Globulin 0.7 g/dL (0.5-0.9); Beta 1 Globulin 0.4 g/dL (0.4-0.6); Gamma Globulin 0.5 g/dL (0.8-1.7); Protein, Total 5.3 g/dL (6.1-8.1)
== END ==
PROVIDERS: Family Provider Internal Medicine; PCP Internal Medicine
DX: C90.00 Multiple myeloma not having achieved remission (principal)
CPT/HCPCS: 36415; 80053; 83883; 84155; 84165; 85025

== ENCOUNTER → 2019-03-31 07:35 | Outpatient (ROUT) | payer MEDICARE, OTHER, SELFPAY ==
[2019-03-31 08:38] LABS: INR 3.1 (0.9-1.3)
== END ==
PROVIDERS: Family Provider Internal Medicine; PCP Internal Medicine; Visit Provider Internal Medicine
DX: I74.9 Embolism and thrombosis of unspecified artery (principal)
CPT/HCPCS: 36415; 85610

== ENCOUNTER → 2019-04-05 07:34 | Outpatient (ROUT) | payer MEDICARE, OTHER, SELFPAY ==
[2019-04-05 09:06] LABS: INR 3.9 (0.9-1.3); Prothrombin Time 46.1 SECONDS (10.1-12.7)
[2019-04-05 09:46] LABS: Blood Urea Nitrogen 36 mg/dL (7-17); Calcium 9.1 mg/dL (8.4-10.2); Carbon Dioxide 23 mmol/L (22-32); Chloride 107 mmol/L (98-107); Estimated Glomerular Filt Rate 33.4 mL/min (>60); Glucose 120 mg/dL (80-110); HEMOLYSIS < 15 (0-50); Sodium 138 mmol/L (137-145)
[2019-04-05 09:55] LABS: Potassium 5.6 mmol/L (3.4-5.1)
== END ==
PROVIDERS: Family Provider Internal Medicine; PCP Internal Medicine; Visit Provider Nurse Practitioner Family
DX: N28.9 Disorder of kidney and ureter, unspecified (principal)
CPT/HCPCS: 36415; 80048; 85610

== ENCOUNTER → 2019-04-07 08:01 | Outpatient (ROUT) | payer MEDICARE, OTHER, SELFPAY ==
[2019-04-07 08:52] LABS: INR 1.9 (0.9-1.3); Prothrombin Time 22.5 SECONDS (10.1-12.7)
== END ==
PROVIDERS: Family Provider Internal Medicine; PCP Internal Medicine; Visit Provider Internal Medicine
DX: I74.01 Saddle embolus of abdominal aorta (principal)
CPT/HCPCS: 36415; 85610

== ENCOUNTER → 2019-04-10 08:29 | Outpatient (ROUT) | payer MEDICARE, OTHER, SELFPAY ==
[2019-04-10 09:44] LABS: INR 1.3 (0.9-1.3); Prothrombin Time 15.6 SECONDS (10.1-12.7)
== END ==
PROVIDERS: Family Provider Internal Medicine; PCP Internal Medicine; Visit Provider Internal Medicine
DX: I74.01 Saddle embolus of abdominal aorta (principal)
CPT/HCPCS: 36415; 85610

== ENCOUNTER 2019-06-29 13:01 | Emergency (ER) | payer MEDICARE, OTHER, MEDICAID, SELFPAY ==
[2019-06-29 13:07] VITALS: BP 142/73; PULSE 79; RESP 15; TEMP 36.9; O2SAT 98
--- NOTE | 2019-06-29 13:28 | ED.FEMALEGU ---
HPI - Female Genitourinary General Chief complaint: Urogenital-Female Stated complaint: UTI symptoms Time Seen by Provider: 06/29/19 13:12 Source: patient Limitations: no limitations History of Present Illness HPI Narrative: This is an 79-year-old female comes to the emergency department concern for bladder infection or pyelonephritis. Patient noted that her urine was very cloudy today. She had a fairly recent history of urosepsis, she was transferred to a tertiary care facility because they thought that she was going to have dialysis although she ended up not being a dialysis candidate and sent back for completion of her antibiotics and renal failure which has been improving. Patient has not had any fevers or chills. She denies any chest pain or shortness of breath. She has little bit of epigastric discomfort and left flank pain. Patient states she was constipated she was given senna and MiraLax yesterday and was ?totally cleared out?. Since then she has had a little bit of the abdominal discomfort. She has not noticed any urinary frequency urgency or dysuria. She does appreciate a little bit of left flank pain. Patient does take Percocet intermittently for pain secondary to multiple myeloma and lesions in her right shoulder. She has not had any of her medication today. She does have a history significant for right nephrectomy secondary to renal cell carcinoma and has chronic renal insufficiency. She is on medication for hypothyroid, she has had a pulmonary embolism and is on Coumadin. She has chronic anemia. Essential tremor, peripheral neuropathy depression and non insulin diabetes type 2. Related Data Home Medications Medication Instructions Recorded Confirmed multivitamin [Multiple Vitamins] 1 tab PO QDAY #0 05/12/17 06/29/19 propranolol 80 mg PO QAM #0 01/14/18 06/29/19 sertraline 100 mg PO DAILY 03/30/18 06/29/19 acetaminophen 650 mg PO Q8H 01/25/19 06/29/19 acyclovir 200 mg PO BID 01/25/19 06/29/19 cyanocobalamin (vitamin B-12) 1,000 mcg PO DAILY 01/25/19 06/29/19 Kerasal 1 applic TOPICAL DIRECTED 06/29/19 06/29/19 dexamethasone 20 mg PO QWEEK 06/29/19 06/29/19 diclofenac sodium 0 g TOPICAL BID 06/29/19 06/29/19 levothyroxine [Synthroid] 150 mcg PO DAILY 06/29/19 06/29/19 morphine 15 mg PO BID 06/29/19 06/29/19 ondansetron 4 mg PO TID PRN 06/29/19 06/29/19 tizanidine 2 mg PO Q6H PRN 06/29/19 06/29/19 warfarin 3 mg PO DAILY 06/29/19 06/29/19 Previous Rx's Medication Instructions Recorded oxycodone-acetaminophen 1 tab PO Q4H PRN #20 tab MDD 01/27/19 4000mg acetaminophen ciprofloxacin HCl 500 mg PO Q12H #20 tab 06/29/19 Allergies Allergy/AdvReac Type Severity Reaction Status Date / Time morphine Allergy Severe STROKE Verified 06/29/19 13:07 LIKE SYMPTOMS levofloxacin Allergy Intermediate HIVES Verified 06/29/19 13:07 adhesive [ADHESIVE] Allergy Mild BLISTERS Verified 06/29/19 13:07 celecoxib Allergy Mild RASH, Verified 06/29/19 13:07 SMALL BLISTERS, NAUSEA Penicillins Allergy Mild RASH Verified 06/29/19 13:07 phenazopyridine Allergy Mild VOMITING Verified 06/29/19 13:07 [From PYRIDIUM] Sulfa (Sulfonamide Allergy Mild BLISTERS Verified 06/29/19 13:07 Antibiotics) lactose [LACTOSE] Allergy Unknown Verified 06/29/19 13:07 Review of Systems Review of Systems ROS Unobtainable: All systems reviewed & are unremarkable except as noted in HPI and below Constitutional Constitutional: Denies chills, Denies fever(s), Denies lethargy, Denies malaise and Denies weakness Cardiovascular Cardiovascular: Denies chest pain, Denies edema, Denies dyspnea and Denies dyspnea on exertion Respiratory Respiratory: Denies dyspnea and Denies dyspnea on exertion Gastrointestinal Gastrointestinal: Reports abdominal pain (epigastric. left flank), Denies melena, Denies hematochezia, Denies change in bowel habits, Reports constipation (resolved yesterday.), Denies diarrhea, Denies nausea and Denies vomiting Genitourinary Genitourinary: Reports as per HPI, Denies hematuria, Denies urinary frequency, Denies dysuria, Reports flank pain (left), Denies urinary incontinence, Denies urinary hesitancy, Denies urinary urgency and Reports other (cloudy urine) Neurologic Neurologic: Denies weakness PFSH Medical History Acute urinary retention (Acute) ATN (acute tubular necrosis) (Acute) Depression (Acute) History of UTI (Acute) Hypertension (Acute) Inpatient management required (Acute) Multiple myeloma (Chronic) Multiple myeloma (Acute) Nausea (Acute) Neuropathy (Acute) Pulmonary embolus (Acute) Renal cell carcinoma (Acute) UTI (urinary tract infection) due to Enterococcus (Acute) Surgical History History of cholecystectomy (Acute) History of nephrectomy, right (Acute) History of tonsillectomy (Acute) Hx of appendectomy (Acute) Family History Mother No problems noted. Father No problems noted. Social History (System 03/03/18 @ 14:11 by Patricia Sher) household members: caregiver and none Smoking Status: Never smoker alcohol intake: current Family History Mother No problems noted. Father No problems noted. Social History household members: caregiver and none Smoking Status: Never smoker alcohol intake: current Exam Narrative Exam Narrative: GENERAL: Alert and oriented x three, well-nourished obese female in acute distress. HEENT: Head normocephalic, atraumatic, EOMI, pupils reactive, face symmetric, moist mucous membranes NECK: Supple, full range of motion CARDIOVASCULAR: Regular rate and rhythm without murmurs, rubs or gallops. Patient does have a port on her left upper chest which appears clean dry and intact without any signs of infection. RESPIRATORY: Breath sounds equal bilaterally, no wheezes rales or rhonchi. No accessory muscle use, no tachypnea. ABDOMEN: Soft, nontender to palpation. Normoactive bowel sounds all 4 quadrants. No guarding or rebound, rigidity, no mass : No CVA tenderness noted bilaterally EXTREMITIES: Normal range of motion, no clubbing or edema. 2+ pulses bilateral lower extremities. Neurovascularly intact NEUROLOGICAL: Cranial nerves II through XII grossly intact. Moving all extremities SKIN: Warm, dry, no petechiae, no rashes or lesions. Initial Vital Signs Initial Vital Signs: Vital Signs Temperature 98.4 F 06/29/19 13:07 Pulse Rate 79 06/29/19 13:07 Respiratory Rate 15 06/29/19 13:07 Blood Pressure 142/73 H 06/29/19 13:07 Pulse Oximetry 98 06/29/19 13:07 Course Orders Ordered: ED Orders 06/29/19 13:10 Complete Blood Count AUTO DIFF Stat Comprehensive Metabolic Panel Stat Lactate (Lactic Acid) Stat Procalcitonin Stat Prothrombin Time INR Stat 06/29/19 13:37 CT kidney ureter bladder (KUB) Stat 06/29/19 14:50 Urine Culture Stat Urine Microscopic Stat 06/29/19 17:18 Blood Culture Stat Discontinued Medications Ciprofloxacin (Cipro) 500 mg PO NOW ONE Stop: 06/29/19 15:42 Last Admin: 06/29/19 15:52 Dose: 500 mg Documented by: PARISH Heparin Sodium (Porcine) (Heparin [place]) 500 unit IV PRN PRN PRN Reason: Flush Sodium Chloride (Normal Saline 0.9%) 1,000 mls @ 150 mls/hr IV CONT ANGELES Last Infusion: 06/29/19 15:16 Dose: 0 mls/hr Documented by: Admin: 06/29/19 13:39 Dose: 150 mls/hr Documented by: CHYNA Morphine Sulfate (Morphine) 4 mg IV NOW ONE Stop: 06/29/19 15:37 Last Admin: 06/29/19 15:52 Dose: 4 mg Documented by: PARISH Oxycodone/Acetaminophen (Percocet 5/325) 2 tab PO NOW ONE Stop: 06/29/19 13:30 Last Admin: 06/29/19 13:39 Dose: 2 tab Documented by: CHYNA Vital Signs Vital signs: Vital Signs - 8 hr 06/29/19 13:07 06/29/19 14:23 06/29/19 15:09 Temperature 98.4 F Pulse Rate 79 78 85 Respiratory Rate 15 17 19 Blood Pressure 142/73 H Blood Pressure [Left Arm] 141/61 H 140/61 Pulse Oximetry 98 100 99 06/29/19 16:24 06/29/19 17:26 Temperature Pulse Rate 84 84 Respiratory Rate 16 16 Blood Pressure Blood Pressure [Left Arm] 136/71 141/70 H Pulse Oximetry 97 98 MDM - Female Genitourinary Lab Data Attestation: I reviewed the patient's lab results. Result diagrams: 06/29/19 13:10 06/29/19 13:10 Labs: Lab Results 06/29/19 06/29/19 06/29/19 Range/Units 13:10 13:10 13:10 WBC 3.9 L (4.5-11.0) X10^3/uL RBC 3.35 L (4.0-5.2) X10^6/uL Hgb 10.4 L (12.0-16.0) g/dL Hct 30.5 L (36-46) % MCV 91.0 (80-100) fL MCH 31.0 (26-34) PG MCHC 34.1 (30-36) % RDW 15.9 H (11.6-14.8) % Plt Count 116 L (150-400) X10^3/uL Neut % (Auto) 78.3 H (50-75) % Lymph % (Auto) 6.0 L (25-40) % [place] % (Auto) 14.5 H (3-14) % Eos % (Auto) 1.1 L (2-4) % Baso % (Auto) 0.1 (0-2) % Neut # (Auto) 3000 (5778-1899) /uL Lymph # (Auto) 200 L (0742-0515) /uL [place] # (Auto) 600 (0-900) /uL Eos # (Auto) 0 (0-450) /uL Baso # (Auto) 0 (0-100) /uL PT 36.3 H (10.1-12.7) SECONDS INR 3.1 H (0.9-1.3) Sodium (137-145) mmol/L Potassium (3.4-5.1) mmol/L Chloride (98-107) mmol/L Carbon Dioxide (22-32) mmol/L BUN (7-17) mg/dL Creatinine (0.52-1.04) mg/dL Estimated GFR (>60) mL/min BUN/Creatinine Ratio (6-22) Glucose (80-110) mg/dL Lactate (0.7-2.1) mmol/L Calcium (8.4-10.2) mg/dL Total Bilirubin (0.2-1.3) mg/dL AST (14-36) IU/L ALT (9-52) IU/L Alkaline Phosphatase (38-126) U/L Total Protein (6.3-8.2) g/dL Albumin (3.5-5.0) g/dL Globulin (1.7-4.1) g/dL Albumin/Globulin Ratio (1.0-2.8) Procalcitonin < 0.05 (<0.5) ng/mL Urine RBC (0-5/HPF) Urine WBC (0-5/HPF) Ur Squamous Epith Cells (0-5/HPF) Ur Transition Epith Cell (0-5/HPF) Urine Bacteria (None) Ur Culture Indicated? 06/29/19 06/29/19 06/29/19 Range/Units 13:10 13:10 14:50 WBC (4.5-11.0) X10^3/uL RBC (4.0-5.2) X10^6/uL Hgb (12.0-16.0) g/dL Hct (36-46) % MCV (80-100) fL MCH (26-34) PG MCHC (30-36) % RDW (11.6-14.8) % Plt Count (150-400) X10^3/uL Neut % (Auto) (50-75) % Lymph % (Auto) (25-40) % [place] % (Auto) (3-14) % Eos % (Auto) (2-4) % Baso % (Auto) (0-2) % Neut # (Auto) (7577-4811) /uL Lymph # (Auto) (6507-3461) /uL [place] # (Auto) (0-900) /uL Eos # (Auto) (0-450) /uL Baso # (Auto) (0-100) /uL PT (10.1-12.7) SECONDS INR (0.9-1.3) Sodium 136 L (137-145) mmol/L Potassium 4.9 (3.4-5.1) mmol/L Chloride 105 (98-107) mmol/L Carbon Dioxide 25 (22-32) mmol/L BUN 34 H (7-17) mg/dL Creatinine 1.30 H (0.52-1.04) mg/dL Estimated GFR 39.3 L (>60) mL/min BUN/Creatinine Ratio 26.2 H (6-22) Glucose 143 H (80-110) mg/dL Lactate < 0.5 L (0.7-2.1) mmol/L Calcium 8.8 (8.4-10.2) mg/dL Total Bilirubin 0.4 (0.2-1.3) mg/dL AST 26 (14-36) IU/L ALT 19 (9-52) IU/L Alkaline Phosphatase 59 (38-126) U/L Total Protein 5.7 L (6.3-8.2) g/dL Albumin 3.2 L (3.5-5.0) g/dL Globulin 2.5 (1.7-4.1) g/dL Albumin/Globulin Ratio 1.3 (1.0-2.8) Procalcitonin (<0.5) ng/mL Urine RBC 0-1/hpf (0-5/HPF) Urine WBC 5-10/hpf H (0-5/HPF) Ur Squamous Epith Cells 0-1 /hpf (0-5/HPF) Ur Transition Epith Cell 0-1/hpf (0-5/HPF) Urine Bacteria Moderate (10-30) H (None) Ur Culture Indicated? Specimen cultured Urine Dip Bedside Urine Glucose Negative Bedside Urine Bilirubin - Negative Bedside Urine Ketone - Negative Urine Specific [place] 1.015 Bedside Urine Occult Blood - Negative Bedside Urine pH 6.5 Bedside Urine Protein +/- 15 Bedside Urine Urobilinogen - Negative Bedside Urine Nitrite - Negative Bedside Urine Leukocytes ++ [address] scan - abdomen: Radiologist's impression: [place] [id number] CT Scan Report Signed Patient: Lorraine Parra LMR#: [id number] : 1940Acct:[id number] Age/Sex: 79 / FDate of Service: 06/29/19 Loc: ED Accession Number: [id number] Procedure: CT kidney ureter bladder (KUB) Ordering Provider: Jaycee Joseph D.O. PROCEDURE: CT KIDNEY URETER BLADDER (KUB) INDICATIONS: left flank pain, concern for pyelo TECHNIQUE: Noncontrast 5 mm thick sections acquired from the diaphragms to the symphysis. 5 mm thick coronal and sagittal reformats were then performed. For radiation dose reduction, the following was used: automated exposure control, adjustment of mA and/or kV according to patient size. COMPARISON: [facility], CT, CT PELVIS WITHOUT CONTRAST, 06/19/2019, 13:03. [facility], CT, CT NELSON, 11/15/2018, 11:07. [facility], CT, ABDOMEN/PELVIS WITH CONTRAST, 01/29/2016, 17:39. FINDINGS: Image quality: Excellent. Lung bases: Lung bases are clear. Heart size is normal. Urinary system: The right kidney is surgically absent. No focal abnormality is appreciated within the right renal bed. There is a 2-3 mm nonobstructing superior left renal calculus. Additional 1 mm calculus may also be present within the upper aspect of the left kidney. There is no hydronephrosis. The left ureter is normal in course and caliber no definite intraluminal calculi are evident. Multiple phleboliths are adjacent to the ureter are evident near the vesicoureteral junction, which are unchanged since the exam from the 06/19/19 and probably unchanged since 11/15/18. There is a hypodense lesion identified involving the upper aspect of the left kidney, which is similar to the exam from 01/29/16, given differences in imaging technique. The urinary bladder is unremarkable. No bladder calculi are evident. Other solid organs: The liver is normal in size. Mild intrahepatic biliary dilatation is present. The gallbladder is surgically absent. The spleen is mildly enlarged and measures approximately 13.1 cm in AP dimension. No definite splenic lesions are appreciated. The adrenals and pancreas are within normal limits. Peritoneum and bowel: There is a small hiatal hernia. Mild prominence of the wall of the distal stomach is similar to prior studies and of doubtful significance. The small bowel loops are nondilated. The colon appears to be within normal limits. Areas of colonic diverticulosis are up-to-date without surrounding inflammation to suggest diverticulitis. No free fluid, loculated fluid collection or free air is appreciated. Appendix is not clearly seen and may be surgically absent. There is a small fat containing periumbilical hernia. Nodes and vessels: No retroperitoneal or mesenteric adenopathy by size criteria. Aorta and inferior vena cava are normal in caliber. Aortic and iliac artery atherosclerotic changes are present. Other pelvic soft tissues: No free pelvic fluid. A small fat containing right inguinal hernia is present. Trace amount of free fluid is seen within the pelvis. There is no loculated fluid collection or free air. Bones: Multiple lytic lesions are identified throughout the imaged spine and pelvic bones, suggesting metastatic disease. No pathologic fractures are identified. Moderate degenerative changes of the lower lumbar spine are present. There are mild to moderate degenerative changes of the pelvic joints. IMPRESSION: 1. Nonobstructing superior left renal calculi. No hydronephrosis or definite ureterolithiasis. No bladder calculi. 2. No acute abnormality is appreciated within the abdomen or pelvis. 3. No bowel obstruction. 4. Mild splenomegaly. 5. Multiple lytic lesions throughout the imaged bones are suggestive of osseous metastases. No lymphadenopathy. 6. Small hiatal hernia. 7. Colonic diverticulosis without diverticulitis. 8. Small fat containing periumbilical hernia and right inguinal hernia. Dictated by: Alex Zamora M.D. on 06/29/2019 at 12:57 Approved by: Alex Zamora M.D. on 06/29/2019 at 13:07 MDM Narrative Medical decision making narrative: Patient concern for possible urine infection and urosepsis. Patient to get urine sample is she is not given 1, will do basic blood work including blood cultures and re-evaluate. Patient is complaining of some left flank pain and abdominal discomfort after Um having a large amount of stool yesterday after senna and MiraLax. So will do a KUB. Patient is not a candidate for contrast with her low GFR. Patient states that she has had ciprofloxacin without issue in the past, she does have allergy to levaquin. Patient was on macrobid with improvement also. Patient does not have any signs of sepsis today. Her urine to leukocyte esterase but no nitrates but with her hospitalizations for urosepsis with renal failure feel would be approved to start her on antibiotics. She has several prior urine cultures, 2 of the 3 so sensitivities to Cipro. Patient is comfortable with this plan. We will give the 1st dose here. She also has some back discomfort chronically and normally takes oral morphine so was given a dose of IV morphine in addition to oral Percocet. Patient had first dose of Cipro without any allergic reaction in department. Discharge Plan Departure Patient Disposition: Home Clinical Impression: UTI (urinary tract infection) Discharge Date/Time: 06/29/19 17:59 Instructions: DI for Urinary Tract Infection (UTI) Activity Restrictions/Additional Instructions: Follow up with your primary care physician in the next 24-48 hours for recheck. Call for an appointment. Continue antibiotics until completely gone. You may continue your home medications as prescribed. Return to the emergency department for fevers greater 100.4 F, worsening pain, lightheadedness, passing out, new chest pain, shortness of breath, persistent vomiting, black or bloody stools, inability to urinate or other new or concerning symptoms. Prescriptions: New ciprofloxacin HCl 500 mg tablet 500 mg PO Q12H Qty: 20 RF: 0 No Action multivitamin [Multiple Vitamins] 1 EACH tablet 1 tab PO QDAY Qty: 0 RF: 0 propranolol 80 MG tablet 80 mg PO QAM Qty: 0 RF: 0 sertraline 100 mg Tablet 100 mg PO DAILY RF: 0 acetaminophen 325 mg Tablet 650 mg PO Q8H RF: 0 cyanocobalamin (vitamin B-12) 1,000 mcg Tablet 1,000 mcg PO DAILY RF: 0 acyclovir 200 mg Capsule 200 mg PO BID RF: 0 oxycodone-acetaminophen 5-325 mg Tablet 1 tab PO Q4H MDD 4000mg acetaminophen PRN (Reason: Pain (Scale Score 7-10)) Qty: 20 RF: 0 warfarin 3 mg tablet 3 mg PO DAILY RF: 0 levothyroxine [Synthroid] 150 mcg tablet 150 mcg PO DAILY RF: 0 morphine 15 mg tablet extended release 15 mg PO BID RF: 0 ondansetron 4 mg tablet,disintegrating 4 mg PO TID PRN (Reason: Nausea And Vomiting) RF: 0 diclofenac sodium 1 % gel 0 g TOPICAL BID RF: 0 dexamethasone 4 mg tablet 20 mg PO QWEEK RF: 0 tizanidine 2 mg tablet 2 mg PO Q6H PRN (Reason: Muscle Spasm) RF: 0 Kerasal 1 applic topical DIRECTED RF: 0 Referrals: Issa Knight MD [Primary Care Provider] -
--- NOTE | 2019-06-29 13:37 | DI.CT.S_ITS ---
PROCEDURE: CT KIDNEY URETER BLADDER (KUB) INDICATIONS: left flank pain, concern for pyelo TECHNIQUE: Noncontrast 5 mm thick sections acquired from the diaphragms to the symphysis. 5 mm thick coronal and sagittal reformats were then performed. For radiation dose reduction, the following was used: automated exposure control, adjustment of mA and/or kV according to patient size. COMPARISON: [facility], CT, CT PELVIS WITHOUT CONTRAST, 06/19/2019, 13:03. [facility], CT, CT NELSON, 11/15/2018, 11:07. [facility], CT, ABDOMEN/PELVIS WITH CONTRAST, 01/29/2016, 17:39. FINDINGS: Image quality: Excellent. Lung bases: Lung bases are clear. Heart size is normal. Urinary system: The right kidney is surgically absent. No focal abnormality is appreciated within the right renal bed. There is a 2-3 mm nonobstructing superior left renal calculus. Additional 1 mm calculus may also be present within the upper aspect of the left kidney. There is no hydronephrosis. The left ureter is normal in course and caliber no definite intraluminal calculi are evident. Multiple phleboliths are adjacent to the ureter are evident near the vesicoureteral junction, which are unchanged since the exam from the 06/19/19 and probably unchanged since 11/15/18. There is a hypodense lesion identified involving the upper aspect of the left kidney, which is similar to the exam from 01/29/16, given differences in imaging technique. The urinary bladder is unremarkable. No bladder calculi are evident. Other solid organs: The liver is normal in size. Mild intrahepatic biliary dilatation is present. The gallbladder is surgically absent. The spleen is mildly enlarged and measures approximately 13.1 cm in AP dimension. No definite splenic lesions are appreciated. The adrenals and pancreas are within normal limits. Peritoneum and bowel: There is a small hiatal hernia. Mild prominence of the wall of the distal stomach is similar to prior studies and of doubtful significance. The small bowel loops are nondilated. The colon appears to be within normal limits. Areas of colonic diverticulosis are up-to-date without surrounding inflammation to suggest diverticulitis. No free fluid, loculated fluid collection or free air is appreciated. Appendix is not clearly seen and may be surgically absent. There is a small fat containing periumbilical hernia. Nodes and vessels: No retroperitoneal or mesenteric adenopathy by size criteria. Aorta and inferior vena cava are normal in caliber. Aortic and iliac artery atherosclerotic changes are present. Other pelvic soft tissues: No free pelvic fluid. A small fat containing right inguinal hernia is present. Trace amount of free fluid is seen within the pelvis. There is no loculated fluid collection or free air. Bones: Multiple lytic lesions are identified throughout the imaged spine and pelvic bones, suggesting metastatic disease. No pathologic fractures are identified. Moderate degenerative changes of the lower lumbar spine are present. There are mild to moderate degenerative changes of the pelvic joints. IMPRESSION: 1. Nonobstructing superior left renal calculi. No hydronephrosis or definite ureterolithiasis. No bladder calculi. 2. No acute abnormality is appreciated within the abdomen or pelvis. 3. No bowel obstruction. 4. Mild splenomegaly. 5. Multiple lytic lesions throughout the imaged bones are suggestive of osseous metastases. No lymphadenopathy. 6. Small hiatal hernia. 7. Colonic diverticulosis without diverticulitis. 8. Small fat containing periumbilical hernia and right inguinal hernia. Dictated by: Alex Zamora M.D. on 06/29/2019 at 12:57 Approved by: Alex Zamora M.D. on 06/29/2019 at 13:07
[2019-06-29] MEDS: SODIUM CHLORIDE 0.9% 1,000 ML 150 ML IV (13:39)
[2019-06-29] MEDS: OXYCODONE/ACETAMINOPHEN 5/325 TABLET 2 TAB PO (13:39)
[2019-06-29] MEDS: LIDOCAINE 2% INJ MDV 20 ML (13:39)
[2019-06-29 13:41] LABS: Add Manual Diff / Slide Review NO; Basophils Absolute Auto 0 /uL (0-100); Basophils Percent Auto 0.1 % (0-2); Eosinophils Absolute Auto 0 /uL (0-450); Eosinophils Percent Auto 1.1 % (2-4); Hematocrit 30.5 % (36-46); Hemoglobin 10.4 g/dL (12.0-16.0); Lymphocytes Absolute Auto 200 /uL (1100-4500); Mean Corpuscular HGB Conc 34.1 % (30-36); Monocytes Absolute Auto 600 /uL (0-900); Monocytes Percent Auto 14.5 % (3-14); Neutrophils Absolute Auto 3000 /uL (1500-7000); Neutrophils Percent Auto 78.3 % (50-75); Platelet Count 116 X10^3/uL (150-400); Red Blood Cell Count 3.35 X10^6/uL (4.0-5.2); Red Cell Distribution Width 15.9 % (11.6-14.8); White Blood Cell Count 3.9 X10^3/uL (4.5-11.0)
--- NOTE | 2019-06-29 13:43 | PC.NURSE ---
Patient has reported not feeling well for couple days. Constipation secondary to chemo. Took Colace and states cleared out yesterday. Patient has had decrease nausea and decrease appetite. Today started having some pain in left kidney and home health nurse noted cloudy urine. patient has had a recent hospitalization for urosepsis at [facility].
[2019-06-29 13:51] LABS: INR 3.1 (0.9-1.3); Prothrombin Time 36.3 SECONDS (10.1-12.7)
[2019-06-29 14:03] LABS: Alanine Aminotransferase 19 IU/L (9-52); Albumin 3.2 g/dL (3.5-5.0); Albumin Globulin Ratio 1.3 (1.0-2.8); Alkaline Phosphatase 59 U/L (38-126); Aspartate Aminotransferase 26 IU/L (14-36); BUN Creatinine Ratio 26.2 (6-22); Bilirubin Total 0.4 mg/dL (0.2-1.3); Blood Urea Nitrogen 34 mg/dL (7-17); Calcium 8.8 mg/dL (8.4-10.2); Carbon Dioxide 25 mmol/L (22-32); Chloride 105 mmol/L (98-107); Estimated Glomerular Filt Rate 39.3 mL/min (>60); Globulin 2.5 g/dL (1.7-4.1); Glucose 143 mg/dL (80-110); HEMOLYSIS < 15 (0-50); Potassium 4.9 mmol/L (3.4-5.1); Sodium 136 mmol/L (137-145); Total Protein 5.7 g/dL (6.3-8.2)
[2019-06-29 14:17] LABS: Lactate (Lactic Acid) < 0.5 mmol/L (0.7-2.1)
[2019-06-29 14:21] LABS: Procalcitonin < 0.05 ng/mL (<0.5)
[2019-06-29 14:23] VITALS: BP 141/61; PULSE 78; RESP 17; O2SAT 100
[2019-06-29 15:09] VITALS: BP 140/61; PULSE 85; RESP 19; O2SAT 99
[2019-06-29 15:10] LABS: Bacteria Urine Moderate (10-30); Culture Indicated Urine Specimen Cultured; RBC Urine 0-1/HPF (0-5/HPF); Squamous Epithelial Cell Urine 0-1 /HPF (0-5/HPF); Transitional Epi Cells Urine 0-1/HPF (0-5/HPF); WBC Urine 5-10/HPF (0-5/HPF)
--- NOTE | 2019-06-29 15:35 | PC.NURSE ---
Spoke to daughter Jenna with permission of pt. [phone]. Advised that pt will most likely be DC'd with PO ABX. in to re-evaluate and speak to pt.
[2019-06-29] MEDS: CIPROFLOXACIN 500 MG TABLET PO (15:52)
[2019-06-29] MEDS: MORPHINE 4 MG/ML INJ IV (15:52)
[2019-06-29 16:24] VITALS: BP 136/71; PULSE 84; RESP 16; O2SAT 97
[2019-06-29 17:26] VITALS: BP 141/70; PULSE 84; RESP 16; O2SAT 98
== END 2019-06-29 17:59 | disposition home or self-care (01) ==
PROVIDERS: Emergency Provider Emergency Medicine; Family Provider Internal Medicine; PCP Internal Medicine
DX: N39.0 Urinary tract infection, site not specified (principal); Z79.01 Long term (current) use of anticoagulants
CPT/HCPCS: 36415; 36591; 74176; 80053; 81003; 81015; 83605; 84145; 85025; 85610; 87040; 87077; 87086; 87147; 87186; 96361; 96374; 96375; 99284; J1642; J2270; Q9967

== ENCOUNTER → 2019-08-07 11:00 | Outpatient (ROUT) | payer MEDICARE, OTHER, MEDICAID, SELFPAY ==
[2019-08-07 11:20] LABS: INR 2.5 (0.9-1.3); Prothrombin Time 29.5 SECONDS (10.1-12.7)
== END ==
PROVIDERS: Family Provider Internal Medicine; PCP Internal Medicine; Visit Provider Internal Medicine
DX: I10 Essential (primary) hypertension (principal); E78.5 Hyperlipidemia, unspecified
CPT/HCPCS: 85610

== ENCOUNTER → 2019-08-10 14:13 | Outpatient (ROUT) | payer MEDICARE, MEDICAID, SELFPAY ==
[2019-08-10 14:26] LABS: INR 2.3 (0.9-1.3); Prothrombin Time 27.1 SECONDS (10.1-12.7)
== END ==
PROVIDERS: Family Provider Internal Medicine; Visit Provider Internal Medicine
DX: I82.409 Acute embolism and thrombosis of unspecified deep veins of unspecified lower extremity (principal)
CPT/HCPCS: 85610

== ENCOUNTER → 2019-08-14 13:01 | Outpatient (ROUT) | payer MEDICARE, MEDICAID, SELFPAY ==
[2019-08-14 13:10] LABS: INR 2.1 (0.9-1.3); Prothrombin Time 24.5 SECONDS (10.1-12.7)
== END ==
PROVIDERS: Family Provider Internal Medicine; Visit Provider Internal Medicine
DX: I48.91 Unspecified atrial fibrillation (principal)
CPT/HCPCS: 85610

== ENCOUNTER → 2019-08-18 18:16 | Outpatient (ROUT) | payer MEDICARE, MEDICAID, SELFPAY ==
[2019-08-18 18:38] LABS: Appearance Urine UA CLEAR; Bilirubin Urine UA NEGATIVE (NEGATIVE); Color Urine UA YELLOW; Glucose Urine UA NEGATIVE (Negative); Ketones Urine UA NEGATIVE (NEGATIVE); Leukocyte Esterase Urine UA 2+ (NEGATIVE); Nitrite Urine UA POSITIVE (Negative); Occult Blood Urine UA TRACE-INTACT (Negative); Protein Urine UA TRACE (Negative); Specific Gravity Urine UA 1.015 (1.000-1.035); Urobilinogen Urine UA 0.2 E.U./dL (0.2)
[2019-08-18 18:46] LABS: Bacteria Urine Many (>30); RBC Urine 1-5/HPF (0-5/HPF); Squamous Epithelial Cell Urine 1-5 /HPF (0-5/HPF); Transitional Epi Cells Urine 5-10/HPF (0-5/HPF); WBC Urine >100/HPF (0-5/HPF); pH Urine UA 5.5 (4.5-8.0)
== END ==
PROVIDERS: Family Provider Internal Medicine; Visit Provider Internal Medicine
DX: R53.1 Weakness (principal)
CPT/HCPCS: 81001; 87077; 87086; 87186

== ENCOUNTER → 2019-08-24 18:41 | Outpatient (ROUT) | payer MEDICARE, MEDICAID, SELFPAY ==
[2019-08-24 18:51] LABS: INR 2.1 (0.9-1.3); Prothrombin Time 23.9 SECONDS (10.1-12.7)
== END ==
PROVIDERS: Family Provider Internal Medicine; Visit Provider Internal Medicine
DX: Z51.81 Encounter for therapeutic drug level monitoring (principal)
CPT/HCPCS: 85610

== ENCOUNTER → 2019-08-30 14:40 | Oncology outpatient (ONC) | payer MEDICARE, OTHER, SELFPAY ==
--- NOTE | 2018-02-28 13:20 | P.PNONC_ITS ---
Assessment and Plan (1) Multiple myeloma Current visit: No Status: Acute 03/01/18 07:18 Lorraine is a 77-year-old female who carries a diagnosis of multiple myeloma. She has had a few recent hospitalization due to bacterial pneumonia. She has increasng pain in her right ear due to mastoid lesion for which she received 2 palliative radiation treatments she was scheduled for 5 treatments in all however she was unable to complete the course due to delirium suspected to be poiate induced. She has had decreasing functional status over the last year. Additionally, she has had weight loss. 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 She remains at local SNF for ongoing medical care as well as intense PT and OT. Until fairly recently she was being treated with every 2 week elotuzumad also dexamethasone 8 mg weekly. Revlimid 15 mg / days. Last zoledronic acid was September of 2017, this is being held due to impending dental work. Bone survey 03/2017 demonstrated multiple lesions consistent with multiple myeloma , specifically in the temporal and occipital bones, T6, T8, T9, left ischium, right femur, right humerus. Lorraine is interested in pursuing further treatment options for her multiple myeloma, she specifically requests treatment in pill form no IV and treatment that does not make her sick. Additionally, Lorraine would like to again pursue palliative radfiation to right mastoid lesion. Her functional status seems actually pretty good today. She is fully awake and alert and cognitively intact. We will schedule a follow up appointment with Dr Blanco to discuss treatment options. Lorraine understands they may be limited and would be palliative in nature. In regards to right ,mastoid lesion we can set up consult with Dr Keating whom the pt has seen before. Radiation may be challenging given significant coearse tremor of her head. Also she does have radiation esophagitis this may be a non starter although Lorraine tells me she is eating a regular diet and not have any difficuolty/pain with eating and swallowing. In the meantime I encouraged her to cont intense PT and OT and cont to work on her functional status. We discussed at lent if she were to go home she would definitely require 24 hour care. After discussing she reluctantly agreed. Plan moving forward: follow up with Dr Blanco to discuss possible treatment options. She meets criteria today for resuming treatment of her MM at which time we will check cbc cmp SPEP FLC Schedule consult with radiation oncology Dr Keating to discuss the possibility of palliative radiation to right mastoid lesion noting complications as outlined above. I will review with Dr Lerma who is managing Lorraine at the [facility]. We certainly appreciate the excellent care Lorraine has been receiving . 03/01/18 07:19 - Time Spent with Patient 50 minutes PN -Subjective Interval history: Lorraine is a 77-year-old female who carries a diagnosis of multiple myeloma. She has had a few recent hospitalization due to bacterial pneumonia. She has increasng pain in her right ear due to mastoid lesion for which she received 2 palliative radiation treatments she was scheduled for 5 treatments in all however she was unable to complete the course due to delirium suspected to be poiate induced. She has had decreasing functional status over the last year. Additionally, she has had weight loss. 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 She remains at local SNF for ongoing medical care as well as intense PT and OT. Until fairly recently she was being treated with every 2 week elotuzumad also dexamethasone 8 mg weekly. Revlimid 15 mg / days. Last zoledronic acid was September of 2017, this is being held due to impending dental work. Bone survey 03/2017 demonstrated multiple lesions consistent with multiple myeloma , specifically in the temporal and occipital bones, T6, T8, T9, left ischium, right femur, right humerus. Lorraine presents today with her daughter Gracie for hospital discharge follow up and she is interested in pursuing continued treatment for her multiple myeloma if it doesnt make me sick. I want a pill I dont want to come in for chemotherapy. Mauri chief complaint today is pain in her left ear for which she is taking oxycodone she requests to change to percoet 10/325 which is what she has taken in the past for other pain and found to be effective. Otherwise she feels she is pretty good. She reports her functional status is good. She ambulates with a walker. She is independent with a walker. She is walking the hallways at the snf facility. She states today she was on the nustep with PT for 20 min. She feels she gets around quite well. No shortness of breath. No dizziness or lightheadedness. No worsening pain with ambulation. She has not had any falls lately. She reports to me she is able to toilet herself and provide basic hygiene. She thinks she would be able to fix herself a meal at home. Her daughter disagrees with the above. Her daughter feels her mom would require 24 hr care at home and they have been working with [facility] to line this up. Lorraine would like to see Dr Adame with radiation oncology to once again pursue radiation to her right ear (mastoid lesion). TIMELINE: 1. Multiple myeloma based on multiple lytic bony lesions with a pathologically diagnosed plasmacytoma and a prior M-spike at 0.3 g/dl which disappeared after initiation of treatment but with continued abnormal kappa-lambda light chain ratio. Original bone marrow biopsy March 2014 did not demonstrate myeloma. 2. Treated with Revlimid with some problems with cytopenias, now not on dexamethasone. It was thought that decreasing primidone might help the tolerance issue. 3. Radiation to multiple sites for pain. 4. Right knee surgery, 2013. 5. 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 6. Anemia. 7. Peripheral neuropathy. 8. Type 2 diabetes. 9. Overweight. 10. Essential tremor. 11. Hypothyroidism, treated 12. Port placement 04/30/17. Results - Imaging Additional studies: Procedures Inspection of Upper Intestinal Tract, Via Natural or Artificial Opening Endoscopic (01/30/16) Transfusion of Nonautologous Red Blood Cells into Central Vein, Percutaneous Approach (02/11/18) Home Medications and Allergies Home Medications Medication Instructions Recorded Confirmed Type GABAPENTIN (Gabapentin) 600 mg PO TID #0 12/01/11 History cholecalciferol (vitamin D3) 2,000 iu PO QDAY #0 07/22/16 History [Vitamin D3] primidone [Mysoline] 4 tab PO QDAY #0 07/22/16 History propranolol 160 mg PO AMCC #0 07/22/16 History ipratropium bromide 2 spray INH Q DAY #0 07/27/16 History [ZOMETA] QMONTH #0 04/12/17 History glipizide 5 mg PO AMAC #0 04/19/17 History multivitamin [Multiple Vitamins] 1 tab PO QDAY #0 05/12/17 History acetaminophen [Tylenol Extra 1,000 mg PO QDAY PRN #0 10/01/17 History Strength] conjugated estrogens [Premarin] 0.3 mg PO HS #0 01/14/18 History eszopiclone 3 mg PO HS #0 01/14/18 History metformin [Glucophage] 500 mg PO QDAY #0 01/14/18 History primidone [Mysoline] 100 mg PO BID #0 01/14/18 History propranolol 80 mg PO BID #0 01/14/18 History albuterol sulfate 1 puff INH QID #0 02/12/18 History clobetasol-emollient TOPICAL Q8HP PRN #0 02/12/18 History dexamethasone 2 mg OR BID #0 02/12/18 History diphenoxylate-atropine 1 tab PO BID #0 02/12/18 History furosemide [Lasix] 60 mg PO DAILY #0 02/12/18 History guaifenesin 600 mg PO BID #0 02/12/18 History ondansetron [Zofran ODT] 8 mg PO Q8HP PRN #0 02/12/18 History oxycodone [OxyContin] 10 mg PO Q3H PRN #0 02/12/18 History oxycodone [OxyContin] 20 mg PO Q3HP PRN #0 02/12/18 History potassium chloride [K-Tab] 20 meq PO BID #0 02/12/18 History potassium chloride [Klor-Con 8] 20 meq PO TID #0 02/12/18 History prochlorperazine maleate 10 mg PO Q6HP PRN #0 02/12/18 History [Compazine] Allergies Allergy/AdvReac Type Severity Reaction Status Date / Time morphine Allergy Severe STROKE Unverified 02/02/18 11:49 LIKE SYMPTOMS levofloxacin Allergy Intermediate HIVES Unverified 02/02/18 11:49 adhesive [ADHESIVE] Allergy Mild BLISTERS Unverified 02/02/18 11:49 celecoxib Allergy Mild RASH, Unverified 02/02/18 11:49 SMALL BLISTERS, NAUSEA Penicillins Allergy Mild RASH Unverified 02/02/18 11:49 phenazopyridine Allergy Mild VOMITING Unverified 02/02/18 11:49 [From PYRIDIUM] Sulfa (Sulfonamide Allergy Mild BLISTERS Unverified 02/02/18 11:49 Antibiotics) lactose [LACTOSE] Allergy Unknown Unverified 02/12/18 02:37 Exam Narrative: non toxic appearing. In wheelchair. - Constitutional positive no acute distress - Routine HEENT Exam Head: Present: normocephalic ENT: Present: mucous membranes moist - Routine Neck Exam Present: supple. Absent: lymphadenopathy - Routine Respiratory Exam Present: Clear to auscultation bilaterally, decreased breath sounds. Absent: rales, rhonchi, wheezes - Routine Cardiovascular Exam Present: RRR, S1, S2. Absent: murmur, gallop, rubs, JVD - Routine Abdominal Exam Present: soft, normoactive bowel sounds. Absent: tenderness, distended, organomegaly - Routine Extremities Exam Present: edema Comments: trace symmetric bilateral pretibial edema - Routine Skin Exam Present: intact, normal turgor. Absent: erythema, petechiae, rash - Routine Neurological Exam Present: alert, oriented X3, moving all extremities, vision grossly intact, hearing grossly intact coarse tremor head, voice - Routine Psychiatric Exam Present: normal affect, normal thought process, good insight
[2018-02-28 15:24] VITALS: BP 107/71; PULSE 73; RESP 18; TEMP 36.2; O2SAT 97
[2018-03-09 13:13] VITALS: BP 103/68; PULSE 69; RESP 16; TEMP 37; O2SAT 94
--- NOTE | 2018-03-09 13:47 | ONC.PN ---
Assessment and Plan - Time Spent with Patient IMPRESSION: 1. MULTIPLE MYELOMA 2. RIGHT JAW/SKULL PAIN DUE TO LYTIC LESION RIGHT MASTOID. 3. ANEMIA 4. NEUTROPENIA 5. WEAKNESS AND GENERAL DEBILITATION 6. RADIATION ESOPHAGITIS 7. PERIPHERAL NEUROPATHY 8. DIABETES MELLITUS 9. STATUS POST RIGHT NEPHRECTOMY 09/2008 FOR RENAL CELL CARCINOMA, HIGH-GRADE PAPILLARY. 10. CHRONIC RENAL INSUFFICIENCY. I reviewed the findings, questions and plan with her and her daughter in detail today. Reviewed extensive records in her chart and on the EMR as well as notes from [facility]. Total time spent 60 min with more than 50% of time spent in counseling and review of management and treatment. Numerous issues which we will need to clarify including restaging her disease, assessing her ability to tolerate further treatment, awaiting consultation tomorrow with Dr. Adame regarding palliative radiation therapy as well as plan of care from current facility she is residing at. Her most recent SPEP and serum free light chains from 01/12/2018 show kappa 90.6, lambda 31.4 with ratio 2.88. SPEP shows monoclonal protein 0.1 gram/deciliter. I will order repeat labs and skeletal bone survey today. Plan to see her back in 1-2 weeks to review the results and have further time to assess plan for treatment. She does voice understanding the treatment is intended to control her disease and to buy time but is not anticipated to cure her myeloma. Her daughter is very supportive in agreement with our plan today. PLAN: 1. CBC, CMP, SPEP and serum free light chains. 2. Skeletal bone survey. 3. Consultation with Dr. Adame in Radiation Oncology 03/10/2018 as scheduled. 4. Follow up with other providers as planned. 5. Reviewed general safety and fall prevention issues. 6. Return appointment in 1-2 weeks. 7. Further imaging or diagnostic studies as indicated. 8. Follow up with high school social studies teacher and PT/OT as planned. DICTATED BY ANNA BENITES MD MEDICAL ONCOLOGY AND HEMATOLOGY PN -Subjective Interval history: HEMATOLOGY/ONCOLOGY PROGRESS NOTE NAME: Lorraine Parra DATE OF : 1940 DATE OF SERVICE: 03/09/2018 PCP: Issa Knight MD IDENTIFICATION: Ms. Parra is a 77-year-old woman with multiple myeloma who returns to discuss treatment. INTERVAL HISTORY: She presents today accompanied by her daughter, Gracie. Last seen here by Janell SILVA on 02/28/2018. Previously treated by Dr. Bose. She has a complicated past treatment history. Previously on treatment with Revlimid and dexamethasone. Due to concerns about disease progression, Dr. Bose added elotuzumab August 2017 which treatment continuing until December 2017. She has not received active systemic therapy since December. Also receiving zoledronate with most recent infusion September 2017. Recently noted increasing pain in the right ear and lateral skull and was found to have involvement of the mastoid and was seen at [facility] in December 2017 and started on palliative radiation therapy. She reportedly received only 2 of 5 planned fractions before returning home. Treatment course was complicated by delirium which was felt to be largely due to narcotic pain medication as well as other issues. She tells me she is doing better of late. She currently resides at [facility] here in [place]. Her daughter Gracie this in [place]. She has an appointment tomorrow with Dr. Adame to discuss palliative radiation therapy. RECENT HISTORY AND NOTE BY JANELL SILVA: Lorraine is a 77-year-old female who carries a diagnosis of multiple myeloma. She has had a few recent hospitalization due to bacterial pneumonia. She has increasng pain in her right ear due to mastoid lesion for which she received 2 palliative radiation treatments she was scheduled for 5 treatments in all however she was unable to complete the course due to delirium suspected to be poiate induced. She has had decreasing functional status over the last year. Additionally, she has had weight loss. 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 She remains at local SNF for ongoing medical care as well as intense PT and OT. Until fairly recently she was being treated with every 2 week elotuzumad also dexamethasone 8 mg weekly. Revlimid 15 mg 21/28 days. Last zoledronic acid was September of 2017, this is being held due to impending dental work. Bone survey 03/2017 demonstrated multiple lesions consistent with multiple myeloma , specifically in the temporal and occipital bones, T6, T8, T9, left ischium, right femur, right humerus. Lorraine presents today with her daughter Gracie for hospital discharge follow up and she is interested in pursuing continued treatment for her multiple myeloma if it doesnt make me sick. I want a pill I dont want to come in for chemotherapy. Mauri chief complaint today is pain in her left ear for which she is taking oxycodone she requests to change to percoet 10/325 which is what she has taken in the past for other pain and found to be effective. Otherwise she feels she is pretty good. She reports her functional status is good. She ambulates with a walker. She is independent with a walker. She is walking the hallways at the senior living facility. She states today she was on the nustep with PT for 20 min. She feels she gets around quite well. No shortness of breath. No dizziness or lightheadedness. No worsening pain with ambulation. She has not had any falls lately. She reports to me she is able to toilet herself and provide basic hygiene. She thinks she would be able to fix herself a meal at home. Her daughter disagrees with the above. Her daughter feels her mom would require 24 hr care at home and they have been working with [facility] to line this up. Lorraine would like to see Dr Adame with radiation oncology to once again pursue radiation to her right ear (mastoid lesion). TIMELINE: 1. Multiple myeloma based on multiple lytic bony lesions with a pathologically diagnosed plasmacytoma and a prior M-spike at 0.3 g/dl which disappeared after initiation of treatment but with continued abnormal kappa-lambda light chain ratio. Original bone marrow biopsy March 2014 did not demonstrate myeloma. 2. Treated with Revlimid with some problems with cytopenias, now not on dexamethasone. It was thought that decreasing primidone might help the tolerance issue. 3. Radiation to multiple sites for pain. 4. Right knee surgery, 2013. 5. 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 6. Anemia. 7. Peripheral neuropathy. 8. Type 2 diabetes. 9. Overweight. 10. Essential tremor. 11. Hypothyroidism, treated 12. Port placement 04/30/17. - Additional ROS Additional ROS: REVIEW OF SYSTEMS GENERAL: NO FEVER, CHILLS OR NIGHT SWEATS REPORTED. HEENT: NO DIPLOPIA, VISION CHANGE, EPISTAXIS OR DYSPHAGIA. PAIN NOTED ABOVE. RESPIRATORY: NO COUGH OR DYSPNEA. CARDIAC: NO CHEST PAIN, PND OR ORTHOPNEA. GI: NO NAUSEA, VOMITING OR ABDOMINAL PAIN. : NO FLANK PAIN, DYSURIA OR HEMATURIA. MUSCULOSKELETAL: NOTES SOME PAIN IN RIGHT POSTERIOR PELVIC REGION NEUROLOGIC: NO RECENT HEADACHES, SEIZURES OR FOCAL WEAKNESS. Results - Imaging Additional studies: Procedures Biopsy of bone, other bones (04/23/14) Excision of lesion of other soft tissue (01/01/12) Inspection of Upper Intestinal Tract, Via Natural or Artificial Opening Endoscopic (01/30/16) Transfusion of Nonautologous Red Blood Cells into Central Vein, Percutaneous Approach (02/11/18) Home Medications and Allergies Home Medications Medication Instructions Recorded Confirmed Type GABAPENTIN (Gabapentin) 600 mg PO TID #0 12/01/11 03/09/18 History cholecalciferol (vitamin D3) 2,000 iu PO QDAY #0 07/22/16 03/09/18 History [Vitamin D3] primidone [Mysoline] 4 tab PO QDAY #0 07/22/16 03/09/18 History propranolol 160 mg PO AMCC #0 07/22/16 History ipratropium bromide 2 spray INH Q DAY #0 07/27/16 03/09/18 History [ZOMETA] QMONTH #0 04/12/17 History glipizide 5 mg PO AMAC #0 04/19/17 03/09/18 History multivitamin [Multiple Vitamins] 1 tab PO QDAY #0 05/12/17 03/09/18 History acetaminophen [Tylenol Extra 1,000 mg PO QDAY PRN #0 10/01/17 03/09/18 History Strength] conjugated estrogens [Premarin] 0.3 mg PO HS #0 01/14/18 03/09/18 History eszopiclone 3 mg PO HS #0 01/14/18 03/09/18 History metformin [Glucophage] 500 mg PO QDAY #0 01/14/18 03/09/18 History primidone [Mysoline] 100 mg PO BID #0 01/14/18 History propranolol 80 mg PO BID #0 01/14/18 History albuterol sulfate 1 puff INH QID #0 02/12/18 03/09/18 History clobetasol-emollient TOPICAL Q8HP PRN #0 02/12/18 History dexamethasone 2 mg OR BID #0 02/12/18 03/09/18 History diphenoxylate-atropine 1 tab PO BID #0 02/12/18 03/09/18 History furosemide [Lasix] 60 mg PO DAILY #0 02/12/18 03/09/18 History guaifenesin 600 mg PO BID #0 02/12/18 03/09/18 History ondansetron [Zofran ODT] 8 mg PO Q8HP PRN #0 02/12/18 03/09/18 History oxycodone [OxyContin] 10 mg PO Q3H PRN #0 02/12/18 03/09/18 History oxycodone [OxyContin] 20 mg PO Q3HP PRN #0 02/12/18 03/09/18 History potassium chloride [K-Tab] 20 meq PO BID #0 02/12/18 03/09/18 History potassium chloride [Klor-Con 8] 20 meq PO TID #0 02/12/18 03/09/18 History prochlorperazine maleate 10 mg PO Q6HP PRN #0 02/12/18 History [Compazine] melatonin 03/09/18 History Allergies Allergy/AdvReac Type Severity Reaction Status Date / Time morphine Allergy Severe STROKE Unverified 02/02/18 11:49 LIKE SYMPTOMS levofloxacin Allergy Intermediate HIVES Unverified 02/02/18 11:49 adhesive [ADHESIVE] Allergy Mild BLISTERS Unverified 02/02/18 11:49 celecoxib Allergy Mild RASH, Unverified 02/02/18 11:49 SMALL BLISTERS, NAUSEA Penicillins Allergy Mild RASH Unverified 02/02/18 11:49 phenazopyridine Allergy Mild VOMITING Unverified 02/02/18 11:49 [From PYRIDIUM] Sulfa (Sulfonamide Allergy Mild BLISTERS Unverified 02/02/18 11:49 Antibiotics) lactose [LACTOSE] Allergy Unknown Unverified 02/12/18 02:37 Exam Vital signs: Last Vital Signs Temp 98.6 F 03/09/18 13:13 Pulse 69 03/09/18 13:13 Resp 16 03/09/18 13:13 BP 103/68 03/09/18 13:13 Pulse Ox 94 03/09/18 13:13 - Constitutional positive no acute distress, positive obese, positive cooperative - Routine HEENT Exam Head: Present: normocephalic, atraumatic. Absent: cushingoid faces Eye: Present: EOMI, PERRL, conjunctivae pink. Absent: conjunctival icterus, periorbital swelling ENT: Present: mucous membranes moist, oropharynx clear - Routine Neck Exam Present: supple, full ROM - Routine Chest/Breast/Axilla Exam Chest wall exam standard: Absent: tenderness, mass - Routine Respiratory Exam Present: Clear to auscultation bilaterally. Absent: rales, wheezes, crackles - Routine Cardiovascular Exam Present: RRR, S1, S2. Absent: murmur, S3 - Routine Abdominal Exam Present: soft, normoactive bowel sounds. Absent: tenderness, distended, organomegaly, mass - Routine Extremities Exam Present: edema. Absent: cyanosis, calf tenderness, tenderness - Routine Neurological Exam Present: alert, oriented X3, moving all extremities, normal speech SHE IS A BIT WEAK and requires some assistance to walk or transfer to the wheelchair. Speech is fluent and coherent though her voice is a bit tremulous.
--- NOTE | 2018-03-10 11:35 | ONC.NAV ---
Description: Care Coordination Activity: Called Jackelin, social work supervisor person at [facility] to discuss pt/dtr's decision-making process in terms of whether or not to stay residing at [facility], with Medicaid, while she undergoes radiation. [facility] has had several care conferences re: these same decisions and planning needs. Jackelin agreed with the outcome of this THERMODYNAMICS ENGINEER's meeting with pt/dtr from yesterday, that pt agreed to remain at [facility] until she is able to determine if her functional status will improve or not during radiation, and that she will continue to have the caregiving she needs while getting radiation. Plan: Agreed to have another care conference once pt is done with radiation, with the goal of re-evaluating pt's ability to be discharged home with [facility] caregiving support.
[2018-03-23 13:40] VITALS: BP 101/59; PULSE 68; RESP 16; TEMP 37.1; O2SAT 98
--- NOTE | 2018-03-23 15:08 | ONC.PN ---
Assessment and Plan - Time Spent with Patient IMPRESSION: 1. MULTIPLE MYELOMA 2. RIGHT JAW/SKULL PAIN DUE TO LYTIC LESION RIGHT MASTOID. PAIN RESOLVED FOLLOWING PARTIAL RADIATION THERAPY WITH 2 FRACTIONS ADMINISTERED. 3. ANEMIA 4. NEUTROPENIA 5. WEAKNESS AND GENERAL DEBILITATION 6. RADIATION ESOPHAGITIS 7. PERIPHERAL NEUROPATHY 8. DIABETES MELLITUS 9. STATUS POST RIGHT NEPHRECTOMY 09/2008 FOR RENAL CELL CARCINOMA, HIGH-GRADE PAPILLARY. 10. CHRONIC RENAL INSUFFICIENCY. I reviewed her recent lab results. Unfortunately she forgot to have the bone survey done and we will need to reschedule her visit. We did review past treatment history and options for treatment of her myeloma. She did see Dr. Adame in Radiation Oncology and tells me he did not recommend further radiation therapy to her jaw presumably since her pain has resolved. I discussed potential concerns regarding side effects and toxicities of treatment as well as the potential to increase her risk for fall or traumatic injury or for readmission to the hospital for management of possible complications. Her daughter, Gracie, voices understanding and agreement with these concerns though Lorraine seems somewhat less concerned. She is very focused on getting home she says. He remains unclear how realistic this goal is, however. Since she currently has no symptoms to suggest progressive myeloma despite the increase in kappa free light chains and ratio, it would seem reasonable to proceed with the bone survey to re-stage the extent and activity of her disease and meet back to review the results. She and her daughter agree with this plan. We will have her return in the next 1-2 weeks. PLAN: 1. Skeletal bone survey. 2. Follow up with other providers as planned. 3. Return appointment with me next week. 4. Consider resuming treatment with lenalidomide with/without dexamethasone. 5. Additional treatment pending symptoms and disease course. 6. Follow-up with radiation oncology as needed for symptomatic osseous involvement. DICTATED BY ANNA BENITES MD MEDICAL ONCOLOGY AND HEMATOLOGY PN -Subjective Interval history: HEMATOLOGY/ONCOLOGY PROGRESS NOTE NAME: Lorraine Parra DATE OF : 1940 DATE OF SERVICE: 03/23/2018 PCP: Issa Knight MD IDENTIFICATION: Ms. Parra is a 77-year-old woman with multiple myeloma who returns to discuss treatment. INTERVAL HISTORY: She presents today accompanied by her daughter, Gracie. Here to review restaging studies and discuss potential treatment. She continues to reside at [facility]. She continues to express interest in resuming treatment for her myeloma. She is, however, even more interested in returning home from the care center. She continues to deny any significant bone pain or new discomfort. She feels the same as last visit here. No recent fever, chills, productive cough or dyspnea. No nausea, vomiting or abdominal pain. PAST HISTORY FROM LAST NOTE: Last seen here by Janell SILVA on 02/28/2018. Previously treated by Dr. Bose. She has a complicated past treatment history. Previously on treatment with Revlimid and dexamethasone. Due to concerns about disease progression, Dr. Bose added elotuzumab August 2017 which treatment continuing until December 2017. She has not received active systemic therapy since December. Also receiving zoledronate with most recent infusion September 2017. Recently noted increasing pain in the right ear and lateral skull and was found to have involvement of the mastoid and was seen at [facility] in December 2017 and started on palliative radiation therapy. She reportedly received only 2 of 5 planned fractions before returning home. Treatment course was complicated by delirium which was felt to be largely due to narcotic pain medication as well as other issues. She tells me she is doing better of late. She currently resides at [facility] here in [place]. Her daughter Gracie this in [place]. She has an appointment tomorrow with Dr. Adame to discuss palliative radiation therapy. RECENT HISTORY AND NOTE BY JANELL SILVA: Lorraine is a 77-year-old female who carries a diagnosis of multiple myeloma. She has had a few recent hospitalization due to bacterial pneumonia. She has increasng pain in her right ear due to mastoid lesion for which she received 2 palliative radiation treatments she was scheduled for 5 treatments in all however she was unable to complete the course due to delirium suspected to be poiate induced. She has had decreasing functional status over the last year. Additionally, she has had weight loss. 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 She remains at local SNF for ongoing medical care as well as intense PT and OT. Until fairly recently she was being treated with every 2 week elotuzumad also dexamethasone 8 mg weekly. Revlimid 15 mg 21/28 days. Last zoledronic acid was September of 2017, this is being held due to impending dental work. Bone survey 03/2017 demonstrated multiple lesions consistent with multiple myeloma , specifically in the temporal and occipital bones, T6, T8, T9, left ischium, right femur, right humerus. Lorraine presents today with her daughter Gracie for hospital discharge follow up and she is interested in pursuing continued treatment for her multiple myeloma if it doesnt make me sick. I want a pill I dont want to come in for chemotherapy. Mauri chief complaint today is pain in her left ear for which she is taking oxycodone she requests to change to percoet 10/ which is what she has taken in the past for other pain and found to be effective. Otherwise she feels she is pretty good. She reports her functional status is good. She ambulates with a walker. She is independent with a walker. She is walking the hallways at the assisted facility. She states today she was on the nustep with PT for 20 min. She feels she gets around quite well. No shortness of breath. No dizziness or lightheadedness. No worsening pain with ambulation. She has not had any falls lately. She reports to me she is able to toilet herself and provide basic hygiene. She thinks she would be able to fix herself a meal at home. Her daughter disagrees with the above. Her daughter feels her mom would require 24 hr care at home and they have been working with [facility] to line this up. Lorraine would like to see Dr Adame with radiation oncology to once again pursue radiation to her right ear (mastoid lesion). TIMELINE: 1. Multiple myeloma based on multiple lytic bony lesions with a pathologically diagnosed plasmacytoma and a prior M-spike at 0.3 g/dl which disappeared after initiation of treatment but with continued abnormal kappa-lambda light chain ratio. Original bone marrow biopsy March 2014 did not demonstrate myeloma. 2. Treated with Revlimid with some problems with cytopenias, now not on dexamethasone. It was thought that decreasing primidone might help the tolerance issue. 3. Radiation to multiple sites for pain. 4. Right knee surgery, 2013. 5. 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 6. Anemia. 7. Peripheral neuropathy. 8. Type 2 diabetes. 9. Overweight. 10. Essential tremor. 11. Hypothyroidism, treated 12. Port placement 04/30/17. - Additional ROS Additional ROS: REVIEW OF SYSTEMS: General: No fever or weight loss. HEENT: Denies headaches, vision change or dysphagia. Respiratory: No cough or dyspnea. Cardiac: No chest pain, PND or orthopnea. GI: As above. : Stable. Musculoskeletal: As above. Neurologic: Stable. Continues with chronic symptoms from peripheral neuropathy. Results - Imaging Additional studies: Procedures Biopsy of bone, other bones (04/23/14) Excision of lesion of other soft tissue (01/01/12) Inspection of Upper Intestinal Tract, Via Natural or Artificial Opening Endoscopic (01/30/16) Transfusion of Nonautologous Red Blood Cells into Central Vein, Percutaneous Approach (02/11/18) Home Medications and Allergies Home Medications Medication Instructions Recorded Confirmed Type GABAPENTIN (Gabapentin) 600 mg PO TID #0 12/01/11 03/09/18 History cholecalciferol (vitamin D3) 2,000 iu PO QDAY #0 07/22/16 03/09/18 History [Vitamin D3] primidone [Mysoline] 4 tab PO QDAY #0 07/22/16 03/09/18 History propranolol 160 mg PO AMCC #0 07/22/16 History ipratropium bromide 2 spray INH Q DAY #0 07/27/16 03/09/18 History lactulose 10 gm PO BID #360 ml 08/19/16 03/09/18 Rx Ketoconazole 1 don TOPICAL BID #15 gm 04/01/17 03/09/18 Rx [ZOMETA] QMONTH #0 04/12/17 History glipizide 5 mg PO AMAC #0 04/19/17 03/09/18 History lidocaine-prilocaine 1 don TOPICAL PRN PRN #30 gm 05/05/17 03/09/18 Rx multivitamin [Multiple Vitamins] 1 tab PO QDAY #0 05/12/17 03/09/18 History acetaminophen [Tylenol Extra 1,000 mg PO QDAY PRN #0 10/01/17 03/09/18 History Strength] dexamethasone 20 mg PO QWEEK #20 tab 12/22/17 03/09/18 Rx conjugated estrogens [Premarin] 0.3 mg PO HS #0 01/14/18 03/09/18 History eszopiclone 3 mg PO HS #0 01/14/18 03/09/18 History metformin [Glucophage] 500 mg PO QDAY #0 01/14/18 03/09/18 History primidone [Mysoline] 100 mg PO BID #0 01/14/18 History propranolol 80 mg PO BID #0 01/14/18 History albuterol sulfate 1 puff INH QID #0 02/12/18 03/09/18 History clobetasol-emollient TOPICAL Q8HP PRN #0 02/12/18 History dexamethasone 2 mg OR BID #0 02/12/18 03/09/18 History diphenoxylate-atropine 1 tab PO BID #0 02/12/18 03/09/18 History furosemide [Lasix] 60 mg PO DAILY #0 02/12/18 03/09/18 History guaifenesin 600 mg PO BID #0 02/12/18 03/09/18 History ondansetron [Zofran ODT] 8 mg PO Q8HP PRN #0 02/12/18 03/09/18 History oxycodone [OxyContin] 10 mg PO Q3H PRN #0 02/12/18 03/09/18 History oxycodone [OxyContin] 20 mg PO Q3HP PRN #0 02/12/18 03/09/18 History potassium chloride [K-Tab] 20 meq PO BID #0 02/12/18 03/09/18 History potassium chloride [Klor-Con 8] 20 meq PO TID #0 02/12/18 03/09/18 History prochlorperazine maleate 10 mg PO Q6HP PRN #0 02/12/18 History [Compazine] melatonin 03/09/18 History Allergies Allergy/AdvReac Type Severity Reaction Status Date / Time morphine Allergy Severe STROKE Unverified 02/02/18 11:49 LIKE SYMPTOMS levofloxacin Allergy Intermediate HIVES Unverified 02/02/18 11:49 adhesive [ADHESIVE] Allergy Mild BLISTERS Unverified 02/02/18 11:49 celecoxib Allergy Mild RASH, Unverified 02/02/18 11:49 SMALL BLISTERS, NAUSEA Penicillins Allergy Mild RASH Unverified 02/02/18 11:49 phenazopyridine Allergy Mild VOMITING Unverified 02/02/18 11:49 [From PYRIDIUM] Sulfa (Sulfonamide Allergy Mild BLISTERS Unverified 02/02/18 11:49 Antibiotics) lactose [LACTOSE] Allergy Unknown Unverified 02/12/18 02:37 Exam Vital signs: Last Vital Signs Temp 98.8 F 03/23/18 13:40 Pulse 68 03/23/18 13:40 Resp 16 03/23/18 13:40 BP 101/59 L 03/23/18 13:40 Pulse Ox 98 03/23/18 13:40 - Constitutional positive no acute distress, positive obese, positive cooperative - Routine HEENT Exam Eye: Present: EOMI, PERRL. Absent: conjunctival icterus, scleral injection, periorbital ecchymosis, periorbital swelling - Routine Respiratory Exam Absent: accessory muscle use, respiratory distress - Routine Neurological Exam Present: alert, normal speech - Routine Psychiatric Exam Present: normal affect, cooperative
--- NOTE | 2018-03-30 10:31 | ONC.PN ---
Assessment and Plan - Time Spent with Patient IMPRESSION: 1. Multiple myeloma 2. Right jaw pain secondary to lytic lesion right mastoid. Status post partial radiation therapy with 2 fractions, pain resolved. 3. Anemia. 4. Neutropenia. 5. Generalized weakness and debilitation. 6. Peripheral neuropathy. 7. Diabetes mellitus. 8. Radiation esophagitis. 9. 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 10. Chronic renal insufficiency. I reviewed the results of her recent bone survey from 06/23/2018. The radiologist reports no interval change with regard to the number or size of lytic bone lesions when compared with the prior bone survey from March 2017. She continues to deny any new or progressive bone pain, discomfort or other symptoms that might suggest progressive myeloma. Recent lab work 2 weeks ago showed slight increase in light chains but no additional concerning findings. We reviewed treatment options. She continues to express interest in resuming treatment for her myeloma though she is adamant that she will only consider oral not infusional treatment here in the [facility]. She is willing to restart treatment with Revlimid. I again reviewed my concerns that it could worsen her existing neuropathy symptoms. Also the possibility of some mild cognitive impairment. She is very motivated to return home and it may be best to let her attempt this before starting back on active treatment. Recent restaging with suggest the decision is not urgent or imminently needed. I suggest she follow up with me in 2 weeks with lab work including SPEP and serum free light chains repeated prior to the visit. I will also have her meet with our social media marketing manager, Eileen mendiola in clinic today to help communicate plan to staff at [facility]. PLAN: 1. Meet with social media marketing manager in clinic today. 2. Follow up with other providers as planned. 3. Monitor for new symptoms and call back as needed. 4. Follow-up with staff at [facility]. 5. Return appointment with me in 2 weeks. 6. CBC, CMP, SPEP and serum free light chains prior to the visit. 7. Follow-up with radiation oncology as needed for future palliative radiation therapy. DICTATED BY ANNA BENITES MD MEDICAL ONCOLOGY AND HEMATOLOGY PN -Subjective Interval history: HEMATOLOGY/ONCOLOGY PROGRESS NOTE NAME: Lorraine Parra DATE OF : 1940 DATE OF SERVICE: 03/30/2018 PCP: Issa Knight MD IDENTIFICATION: Ms. Parra is a 77-year-old woman with multiple myeloma who returns to discuss treatment. INTERVAL HISTORY: She presents today alone. Her daughter, Gracie lives in [place] a [place] of miles from [place]. Here to review restaging studies and discuss potential treatment. She continues to reside at [facility]. Here to review recent bone survey and possible treatment options for her myeloma. She remains anxious to the [facility] and return home she says. A primary concern is the cost. She is also hopeful to resume chemotherapy as she believes this will help her do better. She does continue to note symptoms of peripheral neuropathy. No new bone pain or other new symptoms or concerns since her last visit here 1 week ago. No recent bruising, fever, chills or night sweats. No bone pain, headaches or new neurologic symptoms. PAST HISTORY FROM LAST NOTE: Last seen here by Janell SILVA on 02/28/2018. Previously treated by Dr. Bose. She has a complicated past treatment history. Previously on treatment with Revlimid and dexamethasone. Due to concerns about disease progression, Dr. Bose added elotuzumab August 2017 which treatment continuing until December 2017. She has not received active systemic therapy since December. Also receiving zoledronate with most recent infusion September 2017. Recently noted increasing pain in the right ear and lateral skull and was found to have involvement of the mastoid and was seen at [facility] in December 2017 and started on palliative radiation therapy. She reportedly received only 2 of 5 planned fractions before returning home. Treatment course was complicated by delirium which was felt to be largely due to narcotic pain medication as well as other issues. She tells me she is doing better of late. She currently resides at [facility] here in [place]. Her daughter Gracie this in [place]. She has an appointment tomorrow with Dr. Adame to discuss palliative radiation therapy. RECENT HISTORY AND NOTE BY JANELL SILVA: Lorraine is a 77-year-old female who carries a diagnosis of multiple myeloma. She has had a few recent hospitalization due to bacterial pneumonia. She has increasng pain in her right ear due to mastoid lesion for which she received 2 palliative radiation treatments she was scheduled for 5 treatments in all however she was unable to complete the course due to delirium suspected to be poiate induced. She has had decreasing functional status over the last year. Additionally, she has had weight loss. 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 She remains at local SNF for ongoing medical care as well as intense PT and OT. Until fairly recently she was being treated with every 2 week elotuzumad also dexamethasone 8 mg weekly. Revlimid 15 mg 21/28 days. Last zoledronic acid was September of 2017, this is being held due to impending dental work. Bone survey 03/2017 demonstrated multiple lesions consistent with multiple myeloma , specifically in the temporal and occipital bones, T6, T8, T9, left ischium, right femur, right humerus. Lorraine presents today with her daughter Gracie for hospital discharge follow up and she is interested in pursuing continued treatment for her multiple myeloma if it doesnt make me sick. I want a pill I dont want to come in for chemotherapy. Mauri chief complaint today is pain in her left ear for which she is taking oxycodone she requests to change to percoet 10/325 which is what she has taken in the past for other pain and found to be effective. Otherwise she feels she is pretty good. She reports her functional status is good. She ambulates with a walker. She is independent with a walker. She is walking the hallways at the snf facility. She states today she was on the nustep with PT for 20 min. She feels she gets around quite well. No shortness of breath. No dizziness or lightheadedness. No worsening pain with ambulation. She has not had any falls lately. She reports to me she is able to toilet herself and provide basic hygiene. She thinks she would be able to fix herself a meal at home. Her daughter disagrees with the above. Her daughter feels her mom would require 24 hr care at home and they have been working with [facility] to line this up. Lorraine would like to see Dr Adame with radiation oncology to once again pursue radiation to her right ear (mastoid lesion). TIMELINE: 1. Multiple myeloma based on multiple lytic bony lesions with a pathologically diagnosed plasmacytoma and a prior M-spike at 0.3 g/dl which disappeared after initiation of treatment but with continued abnormal kappa-lambda light chain ratio. Original bone marrow biopsy March 2014 did not demonstrate myeloma. 2. Treated with Revlimid with some problems with cytopenias, now not on dexamethasone. It was thought that decreasing primidone might help the tolerance issue. 3. Radiation to multiple sites for pain. 4. Right knee surgery, 2013. 5. 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 6. Anemia. 7. Peripheral neuropathy. 8. Type 2 diabetes. 9. Overweight. 10. Essential tremor. 11. Hypothyroidism, treated 12. Port placement 04/30/17. - Additional ROS Additional ROS: Review of systems: Skin: No new rash. HEENT: No recent headaches, vision change, epistaxis or dysphagia. Respiratory: No cough or dyspnea. Cardiac: No chest pain, PND or orthopnea. GI: As above. : Stable. Musculoskeletal: As above. Neurologic: Stable. Results - Imaging Additional studies: Procedures Biopsy of bone, other bones (04/23/14) Excision of lesion of other soft tissue (01/01/12) Inspection of Upper Intestinal Tract, Via Natural or Artificial Opening Endoscopic (01/30/16) Transfusion of Nonautologous Red Blood Cells into Central Vein, Percutaneous Approach (02/11/18) Home Medications and Allergies Home Medications Medication Instructions Recorded Confirmed Type GABAPENTIN (Gabapentin) 600 mg PO TID #0 12/01/11 03/09/18 History cholecalciferol (vitamin D3) 2,000 iu PO QDAY #0 07/22/16 03/30/18 History [Vitamin D3] primidone [Mysoline] 4 tab PO QDAY #0 07/22/16 03/09/18 History propranolol 160 mg PO AMCC #0 07/22/16 History ipratropium bromide 2 spray INH Q DAY #0 07/27/16 03/09/18 History lactulose 10 gm PO BID #360 ml 08/19/16 03/09/18 Rx Ketoconazole 1 don TOPICAL BID #15 gm 04/01/17 03/09/18 Rx [ZOMETA] QMONTH #0 04/12/17 History glipizide 5 mg PO AMAC #0 04/19/17 03/09/18 History lidocaine-prilocaine 1 don TOPICAL PRN PRN #30 gm 05/05/17 03/09/18 Rx multivitamin [Multiple Vitamins] 1 tab PO QDAY #0 05/12/17 03/09/18 History acetaminophen [Tylenol Extra 1,500 mg PO TID #0 10/01/17 03/30/18 History Strength] dexamethasone 20 mg PO QWEEK #20 tab 12/22/17 03/09/18 Rx conjugated estrogens [Premarin] 0.3 mg PO HS #0 01/14/18 03/09/18 History eszopiclone 3 mg PO HS #0 01/14/18 03/09/18 History metformin [Glucophage] 500 mg PO QDAY #0 01/14/18 03/09/18 History primidone [Mysoline] 100 mg PO BID #0 01/14/18 History propranolol 80 mg PO BID #0 01/14/18 History albuterol sulfate 1 puff INH QID #0 02/12/18 03/09/18 History clobetasol-emollient 0.05 pump TOPICAL Q8HP #0 02/12/18 03/30/18 History dexamethasone 2 mg OR BID #0 02/12/18 03/09/18 History diphenoxylate-atropine 1 tab PO BID #0 02/12/18 03/09/18 History furosemide [Lasix] 60 mg PO DAILY #0 02/12/18 03/09/18 History guaifenesin 600 mg PO BID #0 02/12/18 03/09/18 History ondansetron [Zofran ODT] 8 mg PO Q8HP PRN #0 02/12/18 03/09/18 History oxycodone [OxyContin] 10 mg PO Q3H PRN #0 02/12/18 03/09/18 History oxycodone [OxyContin] 20 mg PO Q3HP PRN #0 02/12/18 03/09/18 History potassium chloride [K-Tab] 20 meq PO BID #0 02/12/18 03/09/18 History potassium chloride [Klor-Con 8] 20 meq PO TID #0 02/12/18 03/09/18 History prochlorperazine maleate 10 mg PO Q6HP PRN #0 02/12/18 History [Compazine] melatonin 03/09/18 History melatonin 1 mg PO BEDTIME PRN 03/30/18 03/30/18 History Allergies Allergy/AdvReac Type Severity Reaction Status Date / Time morphine Allergy Severe STROKE Unverified 02/02/18 11:49 LIKE SYMPTOMS levofloxacin Allergy Intermediate HIVES Unverified 02/02/18 11:49 adhesive [ADHESIVE] Allergy Mild BLISTERS Unverified 02/02/18 11:49 celecoxib Allergy Mild RASH, Unverified 02/02/18 11:49 SMALL BLISTERS, NAUSEA Penicillins Allergy Mild RASH Unverified 02/02/18 11:49 phenazopyridine Allergy Mild VOMITING Unverified 02/02/18 11:49 [From PYRIDIUM] Sulfa (Sulfonamide Allergy Mild BLISTERS Unverified 02/02/18 11:49 Antibiotics) lactose [LACTOSE] Allergy Unknown Unverified 02/12/18 02:37 Exam Vital signs: Last Vital Signs Temp 98.8 F 03/23/18 13:40 Pulse 68 03/23/18 13:40 Resp 16 03/23/18 13:40 BP 101/59 L 03/23/18 13:40 Pulse Ox 98 03/23/18 13:40 - Constitutional positive no acute distress, positive obese, positive cooperative - Routine HEENT Exam Head: Present: normocephalic, atraumatic Eye: Present: EOMI, PERRL
--- NOTE | 2018-03-30 10:35 | P.PNONC_ITS ---
Assessment and Plan - Time Spent with Patient IMPRESSION: 1. Multiple myeloma 2. Right jaw pain secondary to lytic lesion right mastoid. Status post partial radiation therapy with 2 fractions, pain resolved. 3. Anemia. 4. Neutropenia. 5. Generalized weakness and debilitation. 6. Peripheral neuropathy. 7. Diabetes mellitus. 8. Radiation esophagitis. 9. 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 10. Chronic renal insufficiency. I reviewed the results of her recent bone survey from 06/23/2018. The radiologist reports no interval change with regard to the number or size of lytic bone lesions when compared with the prior bone survey from March 2017. She continues to deny any new or progressive bone pain, discomfort or other symptoms that might suggest progressive myeloma. Recent lab work 2 weeks ago showed slight increase in light chains but no additional concerning findings. We reviewed treatment options. She continues to express interest in resuming treatment for her myeloma though she is adamant that she will only consider oral not infusional treatment [facility]. She is willing to restart treatment with Revlimid. I again reviewed my concerns that it could worsen her existing neuropathy symptoms. Also the possibility of some mild cognitive impairment. She is very motivated to return home and it may be best to let her attempt this before starting back on active treatment. Recent restaging with suggest the decision is not urgent or imminently needed. I suggest she follow up with me in 2 weeks with lab work including SPEP and serum free light chains repeated prior to the visit. I will also have her meet with our licensed master social worker, Eileen mendiola in clinic today to help communicate plan to staff at [facility]. PLAN: 1. Meet with licensed master social worker in clinic today. 2. Follow up with other providers as planned. 3. Monitor for new symptoms and call back as needed. 4. Follow-up with staff at [facility]. 5. Return appointment with me in 2 weeks. 6. CBC, CMP, SPEP and serum free light chains prior to the visit. 7. Follow-up with radiation oncology as needed for future palliative radiation therapy. DICTATED BY ANNA BENITES MD MEDICAL ONCOLOGY AND HEMATOLOGY PN -Subjective Interval history: HEMATOLOGY/ONCOLOGY PROGRESS NOTE NAME: Lorraine Prara DATE OF : 1940 DATE OF SERVICE: 03/30/2018 PCP: Issa Knight MD IDENTIFICATION: Ms. Parra is a 77-year-old woman with multiple myeloma who returns to discuss treatment. INTERVAL HISTORY: She presents today alone. Her daughter, Gracie lives in [place] a couple of miles from [place]. Here to review restaging studies and discuss potential treatment. She continues to reside at [facility]. Here to review recent bone survey and possible treatment options for her myeloma. She remains anxious to the [facility] and return home she says. A primary concern is the cost. She is also hopeful to resume chemotherapy as she believes this will help her do better. She does continue to note symptoms of peripheral neuropathy. No new bone pain or other new symptoms or concerns since her last visit here 1 week ago. No recent bruising, fever, chills or night sweats. No bone pain, headaches or new neurologic symptoms. PAST HISTORY FROM LAST NOTE: Last seen here by Janell SILVA on 02/28/2018. Previously treated by Dr. Bose. She has a complicated past treatment history. Previously on treatment with Revlimid and dexamethasone. Due to concerns about disease progression, Dr. Bose added elotuzumab August 2017 which treatment continuing until December 2017. She has not received active systemic therapy since December. Also receiving zoledronate with most recent infusion September 2017. Recently noted increasing pain in the right ear and lateral skull and was found to have involvement of the mastoid and was seen at [facility] in December 2017 and started on palliative radiation therapy. She reportedly received only 2 of 5 planned fractions before returning home. Treatment course was complicated by delirium which was felt to be largely due to narcotic pain medication as well as other issues. She tells me she is doing better of late. She currently resides at [facility] here in [place]. Her daughter Gracie this in [place]. She has an appointment tomorrow with Dr. Adame to discuss palliative radiation therapy. RECENT HISTORY AND NOTE BY JANELL SILVA: Lorraine is a 77-year-old female who carries a diagnosis of multiple myeloma. She has had a few recent hospitalization due to bacterial pneumonia. She has increasng pain in her right ear due to mastoid lesion for which she received 2 palliative radiation treatments she was scheduled for 5 treatments in all however she was unable to complete the course due to delirium suspected to be poiate induced. She has had decreasing functional status over the last year. Additionally, she has had weight loss. 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 [facility] at local [facility] for ongoing medical care as well as intense PT and OT. Until fairly recently she was being treated with every 2 week elotuzumad also dexamethasone 8 mg weekly. Revlimid 15 mg 21/28 days. Last zoledronic acid was September of 2017, this is being held due to impending dental work. Bone survey 03/2017 demonstrated multiple lesions consistent with multiple myeloma , specifically in the temporal and occipital bones, T6, T8, T9, left ischium, right femur, right humerus. Lorraine presents today with her daughter Gracie for hospital discharge follow up and she is interested in pursuing continued treatment for her multiple myeloma if it doesnt make me sick. I want a pill I dont want to come in for chemotherapy. Mauri chief complaint today is pain in her left ear for which she is taking oxycodone she requests to change to percoet 10/325 which is what she has taken in the past for other pain and found to be effective. Otherwise she feels she is pretty good. She reports her functional status is good. She ambulates with a walker. She is independent with a walker. [facility] She states today she was on the nustep with PT for 20 min. She feels she gets around quite well. No shortness of breath. No dizziness or lightheadedness. No worsening pain with ambulation. She has not had any falls lately. She reports to me she is able to toilet herself and provide basic hygiene. She thinks she would be able to fix herself a meal at home. Her daughter disagrees with the above. Her daughter feels her mom would require 24 hr care at home and they have been working with [facility] to line this up. Lorraine would like to see Dr Adame with radiation oncology to once again pursue radiation to her right ear (mastoid lesion). TIMELINE: 1. Multiple myeloma based on multiple lytic bony lesions with a pathologically diagnosed plasmacytoma and a prior M-spike at 0.3 g/dl which disappeared after initiation of treatment but with continued abnormal kappa-lambda light chain ratio. Original bone marrow biopsy March 2014 did not demonstrate myeloma. 2. Treated with Revlimid with some problems with cytopenias, now not on dexamethasone. It was thought that decreasing primidone might help the tolerance issue. 3. Radiation to multiple sites for pain. 4. Right knee surgery, 2013. 5. 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 6. Anemia. 7. Peripheral neuropathy. 8. Type 2 diabetes. 9. Overweight. 10. Essential tremor. 11. Hypothyroidism, treated 12. Port placement 04/30/17. - Additional ROS Additional ROS: Review of systems: Skin: No new rash. HEENT: No recent headaches, vision change, epistaxis or dysphagia. Respiratory: No cough or dyspnea. Cardiac: No chest pain, PND or orthopnea. GI: As above. : Stable. Musculoskeletal: As above. Neurologic: Stable. Results - Imaging Additional studies: Procedures Biopsy of bone, other bones (04/23/14) Excision of lesion of other soft tissue (01/01/12) Inspection of Upper Intestinal Tract, Via Natural or Artificial Opening Endoscopic (01/30/16) Transfusion of Nonautologous Red Blood Cells into Central Vein, Percutaneous Approach (02/11/18) Home Medications and Allergies Home Medications Medication Instructions Recorded Confirmed Type GABAPENTIN (Gabapentin) 600 mg PO TID #0 12/01/11 03/09/18 History cholecalciferol (vitamin D3) 2,000 iu PO QDAY #0 07/22/16 03/30/18 History [Vitamin D3] primidone [Mysoline] 4 tab PO QDAY #0 07/22/16 03/09/18 History propranolol 160 mg PO AMCC #0 07/22/16 History ipratropium bromide 2 spray INH Q DAY #0 07/27/16 03/09/18 History lactulose 10 gm PO BID #360 ml 08/19/16 03/09/18 Rx Ketoconazole 1 don TOPICAL BID #15 gm 04/01/17 03/09/18 Rx [ZOMETA] QMONTH #0 04/12/17 History glipizide 5 mg PO AMAC #0 04/19/17 03/09/18 History lidocaine-prilocaine 1 don TOPICAL PRN PRN #30 gm 05/05/17 03/09/18 Rx multivitamin [Multiple Vitamins] 1 tab PO QDAY #0 05/12/17 03/09/18 History acetaminophen [Tylenol Extra 1,500 mg PO TID #0 10/01/17 03/30/18 History Strength] dexamethasone 20 mg PO QWEEK #20 tab 12/22/17 03/09/18 Rx conjugated estrogens [Premarin] 0.3 mg PO HS #0 01/14/18 03/09/18 History eszopiclone 3 mg PO HS #0 01/14/18 03/09/18 History metformin [Glucophage] 500 mg PO QDAY #0 01/14/18 03/09/18 History primidone [Mysoline] 100 mg PO BID #0 01/14/18 History propranolol 80 mg PO BID #0 01/14/18 History albuterol sulfate 1 puff INH QID #0 02/12/18 03/09/18 History clobetasol-emollient 0.05 pump TOPICAL Q8HP #0 02/12/18 03/30/18 History dexamethasone 2 mg OR BID #0 02/12/18 03/09/18 History diphenoxylate-atropine 1 tab PO BID #0 02/12/18 03/09/18 History furosemide [Lasix] 60 mg PO DAILY #0 02/12/18 03/09/18 History guaifenesin 600 mg PO BID #0 02/12/18 03/09/18 History ondansetron [Zofran ODT] 8 mg PO Q8HP PRN #0 02/12/18 03/09/18 History oxycodone [OxyContin] 10 mg PO Q3H PRN #0 02/12/18 03/09/18 History oxycodone [OxyContin] 20 mg PO Q3HP PRN #0 02/12/18 03/09/18 History potassium chloride [K-Tab] 20 meq PO BID #0 02/12/18 03/09/18 History potassium chloride [Klor-Con 8] 20 meq PO TID #0 02/12/18 03/09/18 History prochlorperazine maleate 10 mg PO Q6HP PRN #0 02/12/18 History [Compazine] melatonin 03/09/18 History melatonin 1 mg PO BEDTIME PRN 03/30/18 03/30/18 History Allergies Allergy/AdvReac Type Severity Reaction Status Date / Time morphine Allergy Severe STROKE Unverified 02/02/18 11:49 LIKE SYMPTOMS levofloxacin Allergy Intermediate HIVES Unverified 02/02/18 11:49 adhesive [ADHESIVE] Allergy Mild BLISTERS Unverified 02/02/18 11:49 celecoxib Allergy Mild RASH, Unverified 02/02/18 11:49 SMALL BLISTERS, NAUSEA Penicillins Allergy Mild RASH Unverified 02/02/18 11:49 phenazopyridine Allergy Mild VOMITING Unverified 02/02/18 11:49 [From PYRIDIUM] Sulfa (Sulfonamide Allergy Mild BLISTERS Unverified 02/02/18 11:49 Antibiotics) lactose [LACTOSE] Allergy Unknown Unverified 02/12/18 02:37 Exam Vital signs: Last Vital Signs Temp 98.8 F 03/23/18 13:40 Pulse 68 03/23/18 13:40 Resp 16 03/23/18 13:40 BP 101/59 L 03/23/18 13:40 Pulse Ox 98 03/23/18 13:40 - Constitutional positive no acute distress, positive obese, positive cooperative - Routine HEENT Exam Head: Present: normocephalic, atraumatic Eye: Present: EOMI, PERRL
[2018-03-30 10:39] VITALS: BP 132/66; PULSE 73; RESP 18; TEMP 36.7; O2SAT 97
[2018-04-06 11:49] LABS: Add Manual Diff / Slide Review NO; Basophils Percent Auto 0.9 % (0-2); Eosinophils Percent Auto 3.7 % (2-4); Hematocrit 32.3 % (36-46); Hemoglobin 10.9 g/dL (12.0-16.0); Lymphocytes Percent Auto 14.8 % (25-40); Mean Corpuscular HGB Conc 33.8 % (30-36); Mean Corpuscular Hemoglobin 33.1 PG (26-34); Mean Corpuscular Volume 97.9 fL (80-100); Monocytes Percent Auto 12.2 % (3-14); Neutrophils Absolute Auto 2400 /uL (3000-5900); Neutrophils Percent Auto 68.4 % (50-75); Platelet Count 188 X10^3/uL (150-400); Red Cell Distribution Width 16.5 % (11.6-14.8); White Blood Cell Count 3.5 X10^3/uL (4.5-11.0)
[2018-04-06 11:57] LABS: Alanine Aminotransferase 29 IU/L (9-52); Albumin 3.8 g/dL (3.5-5.0); Albumin Globulin Ratio 1.3 (1.0-2.8); Alkaline Phosphatase 94 U/L (38-126); Aspartate Aminotransferase 25 IU/L (14-36); Bilirubin Total 0.6 mg/dL (0.2-1.3); Blood Urea Nitrogen 36 mg/dL (7-17); Calcium 8.7 mg/dL (8.4-10.2); Carbon Dioxide 28 mmol/L (22-32); Chloride 101 mmol/L (98-107); Estimated Glomerular Filt Rate > 60.0 mL/min (>60); Globulin 2.9 g/dL (1.7-4.1); Glucose 103 mg/dL (80-110); HEMOLYSIS < 15 (0-50); Potassium 4.7 mmol/L (3.4-5.1); Sodium 140 mmol/L (137-145); Total Protein 6.7 g/dL (6.3-8.2)
[2018-04-07 16:19] LABS: Free Kappa Light Chain 150.7 mg/L (3.3-19.4); Free Lambda 21.9 mg/L (5.7-26.3)
[2018-04-08 17:26] LABS: Albumin 3.7 g/dL (3.8-4.8); Alpha 1 Globulin 0.3 g/dL (0.2-0.3); Alpha 2 Globulin 0.8 g/dL (0.5-0.9); Beta 1 Globulin 0.4 g/dL (0.4-0.6); Gamma Globulin 0.7 g/dL (0.8-1.7); Protein, Total 6.2 g/dL (6.1-8.1)
--- NOTE | 2018-04-20 13:09 | P.PNONC_ITS ---
Assessment and Plan - Time Spent with Patient IMPRESSION: 1. Multiple myeloma. 2. Anemia. 3. Neutropenia. 4. Back pain, chronic. Multifactorial. 5. Generalized weakness and deconditioning. 6. Peripheral neuropathy. 7. Diabetes mellitus. 8. Chronic renal insufficiency. 9. Status post right nephrectomy 09/2008 for treatment of renal cell carcinoma , high-grade papillary type. 10. Radiation esophagitis. Reviewed the findings, recent lab results, questions and treatment plan with her and her daughter in detail today. She is adamant that she feels ready to resume treatment for her myeloma. She also continues to refuse any infusional treatments. She feels that she would tolerate treatment with lenalidomide and dexamethasone at the previous dose of 15 mg daily with dexamethasone 4 mg 2 days each week. I reviewed risks including progressive neuropathy, cytopenias, rash, myalgias, arthralgias, hyperglycemia, mood swings, secondary infections, hypersensitivity reaction, weakness, fatigue, risk for fall or other injury. She voices understanding and accepts the side effects and risks discussed and wishes to start treatment again as soon as possible. I encouraged her and her daughter to monitor for any new symptoms and call back probably of problems or concerns arise. PLAN: 1. Lenalidomide 15 mg p.o. daily days 1-21, every 28 day cycle. Dexamethasone 4 mg, dosed at 2-3 tablets weekly. We will need to confirm prior dose and schedule which is not clear in the notes. 2. Monitor symptoms and call back as needed. 3. Consider treatment with pamidronate given renal insufficiency. 4. CBC, CMP, SPEP and serum free light chains monthly. 5. Return appointment in 4 weeks. 6. Repeat bone survey in the fall. 7. Refill oxycodone 5 mg 1-2 tablets every 6 hr as needed for pain from myeloma ; #30 with no refill. 8. Follow up with other providers as planned. DICTATED BY ANNA BENITES MD MEDICAL ONCOLOGY AND HEMATOLOGY PN -Subjective Interval history: HEMATOLOGY/ONCOLOGY PROGRESS NOTE NAME: Lorraine Parra DATE OF : 1940 DATE OF SERVICE: 04/20/2018 PCP: Issa Knight MD IDENTIFICATION: Ms. Parra is a 77-year-old woman with multiple myeloma who returns to discuss treatment. INTERVAL HISTORY: She returns today with her daughter, Gracie. Since her last visit here 3 weeks ago, she has returned home to [place]. Previously resided at [facility] here in [place]. She continues to note chronic pain in her back which she attributes to rhomboid muscle. She has had similar symptoms for years, more than 5 years she estimates. She denies any recent worsening or changing symptoms. No new weakness or numbness in the arms or legs. No additional sites or increased bone pain. She had a recent bone survey last month. She does feel somewhat tired and weak but no worse than last visit. She denies recent fever, productive cough, chills, chest discomfort , headaches or new neurologic symptoms. No nausea, vomiting or abdominal discomfort. Off treatment with lenalidomide and dexamethasone since December 2017. PAST HISTORY FROM LAST NOTE: Last seen here by Janell SILVA on 02/28/2018. Previously treated by Dr. Bose. She has a complicated past treatment history. Previously on treatment with Revlimid and dexamethasone. Due to concerns about disease progression, Dr. Bose added elotuzumab August 2017 which treatment continuing until December 2017. She has not received active systemic therapy since December. Also receiving zoledronate with most recent infusion September 2017. Recently noted increasing pain in the right ear and lateral skull and was found to have involvement of the mastoid and was seen at [facility] in December 2017 and started on palliative radiation therapy. She reportedly received only 2 of 5 planned fractions before returning home. Treatment course was complicated by delirium which was felt to be largely due to narcotic pain medication as well as other issues. She tells me she is doing better of late. She currently resides at [facility] here in [place]. Her daughter Gracie this in [place]. She has an appointment tomorrow with Dr. Adame to discuss palliative radiation therapy. RECENT HISTORY AND NOTE BY JANELL SILVA: Lorraine is a 77-year-old female who carries a diagnosis of multiple myeloma. She has had a few recent hospitalization due to bacterial pneumonia. She has increasng pain in her right ear due to mastoid lesion for which she received 2 palliative radiation treatments she was scheduled for 5 treatments in all however she was unable to complete the course due to delirium suspected to be poiate induced. She has had decreasing functional status over the last year. Additionally, she has had weight loss. 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 She remains at local SNF for ongoing medical care as well as intense PT and OT. Until fairly recently she was being treated with every 2 week elotuzumad also dexamethasone 8 mg weekly. Revlimid 15 mg 21/28 days. Last zoledronic acid was September of 2017, this is being held due to impending dental work. Bone survey 03/2017 demonstrated multiple lesions consistent with multiple myeloma , specifically in the temporal and occipital bones, T6, T8, T9, left ischium, right femur, right humerus. Lorraine presents today with her daughter Gracie for hospital discharge follow up and she is interested in pursuing continued treatment for her multiple myeloma if it doesnt make me sick. I want a pill I dont want to come in for chemotherapy. Mauri chief complaint today is pain in her left ear for which she is taking oxycodone she requests to change to percoet 10/325 which is what she has taken in the past for other pain and found to be effective. Otherwise she feels she is pretty good. She reports her functional status is good. She ambulates with a walker. She is independent with a walker. [facility]. She states today she was on the nustep with PT for 20 min. She feels she gets around quite well. No shortness of breath. No dizziness or lightheadedness. No worsening pain with ambulation. She has not had any falls lately. She reports to me she is able to toilet herself and provide basic hygiene. She thinks she would be able to fix herself a meal at home. Her daughter disagrees with the above. Her daughter feels her mom would require 24 hr care at home and they have been working with critical access hospital to line this up. Lorraine would like to see Dr Adame with radiation oncology to once again pursue radiation to her right ear (mastoid lesion). TIMELINE: 1. Multiple myeloma based on multiple lytic bony lesions with a pathologically diagnosed plasmacytoma and a prior M-spike at 0.3 g/dl which disappeared after initiation of treatment but with continued abnormal kappa-lambda light chain ratio. Original bone marrow biopsy March 2014 did not demonstrate myeloma. 2. Treated with Revlimid with some problems with cytopenias, now not on dexamethasone. It was thought that decreasing primidone might help the tolerance issue. 3. Radiation to multiple sites for pain. 4. Right knee surgery, 2013. 5. 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 6. Anemia. 7. Peripheral neuropathy. 8. Type 2 diabetes. 9. Overweight. 10. Essential tremor. 11. Hypothyroidism, treated 12. Port placement 04/30/17. - Additional ROS Additional ROS: Review of systems: General: No fever, night sweats or recent weight loss. HEENT: No recent vision change, facial swelling, epistaxis or dysphagia. Respiratory: Stable. Cardiac: No chest pain, PND or orthopnea. GI: Negative. : Negative. Musculoskeletal: As above. Neurologic: Negative. Results - Labs 04/06/18 11:25 04/06/18 11:25 Laboratory Last Values WBC 3.5 X10^3/uL (4.5-11.0) L 04/06/18 11:25 RBC 3.30 X10^6/uL (4.0-5.2) L 04/06/18 11:25 Hgb 10.9 g/dL (12.0-16.0) L 04/06/18 11:25 Hct 32.3 % (36-46) L 04/06/18 11:25 MCV 97.9 fL (80-100) 04/06/18 11:25 MCH 33.1 PG (26-34) 04/06/18 11:25 MCHC 33.8 % (30-36) 04/06/18 11:25 RDW 16.5 % (11.6-14.8) H 04/06/18 11:25 Plt Count 188 X10^3/uL (150-400) 04/06/18 11:25 Neut % (Auto) 68.4 % (50-75) 04/06/18 11:25 Lymph % (Auto) 14.8 % (25-40) L 04/06/18 11:25 [place] % (Auto) 12.2 % (3-14) 04/06/18 11:25 Eos % (Auto) 3.7 % (2-4) 04/06/18 11:25 Baso % (Auto) 0.9 % (0-2) 04/06/18 11:25 Neut # (Auto) 2400 /uL (6277-3030) L 04/06/18 11:25 Sodium 140 mmol/L (137-145) 04/06/18 11:25 Potassium 4.7 mmol/L (3.4-5.1) 04/06/18 11:25 Chloride 101 mmol/L (98-107) 04/06/18 11:25 Carbon Dioxide 28 mmol/L (22-32) 04/06/18 11:25 BUN 36 mg/dL (7-17) H 04/06/18 11:25 Creatinine 0.90 mg/dL (0.52-1.04) 04/06/18 11:25 Estimated GFR > 60.0 mL/min (>60) 04/06/18 11:25 BUN/Creatinine Ratio 40.0 (6-22) H 04/06/18 11:25 Glucose 103 mg/dL (80-110) 04/06/18 11:25 Calcium 8.7 mg/dL (8.4-10.2) 04/06/18 11:25 Total Bilirubin 0.6 mg/dL (0.2-1.3) 04/06/18 11:25 AST 25 IU/L (14-36) 04/06/18 11:25 ALT 29 IU/L (9-52) 04/06/18 11:25 Alkaline Phosphatase 94 U/L (38-126) 04/06/18 11:25 Serum Total Protein 6.2 g/dL (6.1-8.1) 04/06/18 11:25 Total Protein 6.7 g/dL (6.3-8.2) 04/06/18 11:25 Albumin 3.7 g/dL (3.8-4.8) L 04/06/18 11:25 Globulin 2.9 g/dL (1.7-4.1) 04/06/18 11:25 Albumin/Globulin Ratio 1.3 (1.0-2.8) 04/06/18 11:25 Cthzf-7-Vestjxbix 0.3 g/dL (0.2-0.3) 04/06/18 11:25 Airhk-2-Kytuxlqan 0.8 g/dL (0.5-0.9) 04/06/18 11:25 Wpmc-5-Zqppxxuk 0.4 g/dL (0.4-0.6) 04/06/18 11:25 Zsuc-1-Hqswbatx 0.3 g/dL (0.2-0.5) 04/06/18 11:25 Gamma Globulins 0.7 g/dL (0.8-1.7) L 04/06/18 11:25 Abnorm Protein Band 1 Not Reportable 04/06/18 11:25 Abnorm Protein Band 2 Not Reportable 04/06/18 11:25 Abn Gamma Band 3 Serum Not Reportable 04/06/18 11:25 PEP Comment See note 04/06/18 11:25 Free [place] Light Chains 150.7 mg/L (3.3-19.4) H 04/06/18 11:25 Free Lambda Light Chain 21.9 mg/L (5.7-26.3) 04/06/18 11:25 Free [place]/Lambda Ratio 6.90 (0.26-1.65) H 04/06/18 11:25 - Imaging Additional studies: Procedures Biopsy of bone, other bones (04/23/14) Excision of lesion of other soft tissue (01/01/12) Inspection of Upper Intestinal Tract, Via Natural or Artificial Opening Endoscopic (01/30/16) Transfusion of Nonautologous Red Blood Cells into Central Vein, Percutaneous Approach (02/11/18) Home Medications and Allergies Home Medications Medication Instructions Recorded Confirmed Type gabapentin 600 mg PO TID #0 12/01/11 04/20/18 History cholecalciferol (vitamin D3) 2,000 iu PO QDAY #0 07/22/16 04/20/18 History [Vitamin D3] primidone [Mysoline] 4 tab PO QDAY #0 07/22/16 04/20/18 History propranolol 160 mg PO AMCC #0 07/22/16 04/20/18 History ipratropium bromide 2 spray INH BID #0 07/27/16 04/20/18 History lactulose 10 gm PO BID #360 ml 08/19/16 04/20/18 Rx [ZOMETA] QMONTH #0 04/12/17 History glipizide 5 mg PO AMAC #0 04/19/17 04/20/18 History lidocaine-prilocaine 1 don TOPICAL PRN PRN #30 gm 05/05/17 04/20/18 Rx multivitamin [Multiple Vitamins] 1 tab PO QDAY #0 05/12/17 04/20/18 History acetaminophen [Tylenol Extra 1,500 mg PO TID #0 10/01/17 04/20/18 History Strength] dexamethasone 20 mg PO QWEEK #20 tab 12/22/17 04/20/18 Rx conjugated estrogens [Premarin] 0.3 mg PO HS #0 01/14/18 04/20/18 History eszopiclone 3 mg PO HS #0 01/14/18 04/20/18 History metformin [Glucophage] 500 mg PO QDAY #0 01/14/18 04/20/18 History primidone [Mysoline] 100 mg PO BID #0 01/14/18 04/20/18 History propranolol 80 mg PO BID #0 01/14/18 04/20/18 History albuterol sulfate 1 puff INH QID #0 02/12/18 04/20/18 History clobetasol-emollient 0.05 pump TOPICAL Q8HP #0 02/12/18 04/20/18 History dexamethasone 2 mg OR BID #0 02/12/18 04/20/18 History diphenoxylate-atropine 1 tab PO BID #0 02/12/18 04/20/18 History furosemide [Lasix] 60 mg PO DAILY #0 02/12/18 04/20/18 History guaifenesin 600 mg PO BID #0 02/12/18 04/20/18 History ondansetron [Zofran ODT] 8 mg PO Q8HP PRN #0 02/12/18 04/20/18 History oxycodone [OxyContin] 10 mg PO Q3H PRN #0 02/12/18 04/20/18 History oxycodone [OxyContin] 20 mg PO Q3HP PRN #0 02/12/18 04/20/18 History potassium chloride [K-Tab] 20 meq PO BID #0 02/12/18 04/20/18 History potassium chloride [Klor-Con 8] 20 meq PO TID #0 02/12/18 04/20/18 History prochlorperazine maleate 10 mg PO Q6HP PRN #0 02/12/18 04/20/18 History [Compazine] melatonin 1 mg PO QDRHS PRN 03/09/18 03/30/18 History Ketoconazole 1 don TOPICAL BID 03/30/18 03/09/18 History levothyroxine 150 mcg PO DAILY 03/30/18 04/20/18 History loperamide 2 mg PO Q2-4H PRN 03/30/18 04/20/18 History melatonin 1 mg PO BEDTIME PRN 03/30/18 04/20/18 History omeprazole 40 mg PO DAILY 03/30/18 04/20/18 History sertraline 100 mg PO DAILY 03/30/18 04/20/18 History dexamethasone 4 mg PO QWEEK #20 tab 04/20/18 Rx lenalidomide [Revlimid] 15 mg PO DAILY #21 cap 04/20/18 Rx Allergies Allergy/AdvReac Type Severity Reaction Status Date / Time morphine Allergy Severe STROKE Verified 04/20/18 13:22 LIKE SYMPTOMS levofloxacin Allergy Intermediate HIVES Verified 04/20/18 13:22 adhesive [ADHESIVE] Allergy Mild BLISTERS Verified 04/20/18 13:22 celecoxib Allergy Mild RASH, Verified 04/20/18 13:22 SMALL BLISTERS, NAUSEA Penicillins Allergy Mild RASH Verified 04/20/18 13:22 phenazopyridine Allergy Mild VOMITING Verified 04/20/18 13:22 [From PYRIDIUM] Sulfa (Sulfonamide Allergy Mild BLISTERS Verified 04/20/18 13:22 Antibiotics) lactose [LACTOSE] Allergy Unknown Verified 04/20/18 13:22 Exam Vital signs: Last Vital Signs Temp 98.0 F 03/30/18 10:39 Pulse 73 03/30/18 10:39 Resp 18 03/30/18 10:39 BP 132/66 H 03/30/18 10:39 Pulse Ox 97 03/30/18 10:39 - Constitutional positive no acute distress, positive obese, positive cooperative - Routine HEENT Exam Head: Present: normocephalic, atraumatic. Absent: facial swelling Eye: Present: EOMI, PERRL. Absent: conjunctival icterus, scleral injection, periorbital tenderness ENT: Present: mucous membranes moist, oropharynx clear - Routine Neck Exam Present: full ROM. Absent: JVD, lymphadenopathy - Routine Respiratory Exam Present: Clear to auscultation bilaterally. Absent: accessory muscle use, rales , wheezes, crackles - Routine Cardiovascular Exam Present: RRR, S1, S2. Absent: S3 - Routine Abdominal Exam Present: soft, normoactive bowel sounds. Absent: tenderness, distended, organomegaly Palpation/Percussion: Absent: hepatomegaly - Routine Extremities Exam Absent: cyanosis, clubbing, edema - Routine Back/Spine Exam Back/Spine: Present: full ROM - Routine Skin Exam Present: intact. Absent: cyanosis, erythema, jaundice, rash, ecchymosis - Routine Neurological Exam Present: alert, oriented X3, moving all extremities, normal speech - Routine Psychiatric Exam Present: normal affect, cooperative, anxious
[2018-04-20 13:19] VITALS: BP 129/61; PULSE 69; RESP 15; TEMP 36.4; O2SAT 100
--- NOTE | 2018-04-28 13:29 | PC.NURSE ---
Received note from Christi regarding patient. Patient had called asking about status of Revlimid script-Dr. Blanco wanted patient to restart Revlimid after her last visit, but patient had not heard from the pharmacy. Checked patient's Amb Orders in computer-new Revlimid script had been entered by provider, but not transmitted to pharmacy. Script transmitted to [facility] and received electronic confirmation in EMR that script had been accepted, called [facility] auth # [id number] to [facility]. Joi Gaspar RPh
--- NOTE | 2018-05-13 14:14 | PC.NURSE ---
received call from pts dtr regarding pts revilimid Rx. Rx was electronically transmitted by [facility] on 04/28 and shows received by [facility] on same date. After calling [facility] it was discovered they made several attempts to reach pt but was never able to do so to set up shipping. I relayed this to her dtr, gave her [facility]'s phone number and asked for her to set up a shipping time convenient to pt.
[2018-06-16 13:31] VITALS: BP 155/72; PULSE 56; RESP 18; TEMP 35.8; O2SAT 99
--- NOTE | 2018-06-16 14:18 | ONC.PN ---
Assessment and Plan (1) Multiple myeloma Status: Chronic I reviewed the laboratory results with the patient. I also reviewed the SPEP, immunofixation, serum free light chain with the patient. Overall speaking the multiple marker are very stable. There has been no significant changes compared to previous results. I am going to continue the current treatment without any changes. However today patient's white cell count is 2.2 which is 1 week after that the patient stop taking the Revlimid. There is still some concern about the blood counts while the patient was on the treatment. I talked with the patient that for the 2nd cycle, I prefer that we check the blood counts once a week and decide if the dosage is the adequate or over. Patient voiced understanding. When she comes back in 4 weeks I also will recheck the CBC, CMP, SPEP, immunofixation, LDH, serum free light chain, and beta 2 microglobulin and quantitative immunoglobulin. PN -Subjective Interval history: INTERIM EVENTS Lorraine returns here again today after seeing Dr. Blanco about a month ago. Since then patient has resumed taking the Revlimid 15 mg once a day 3 weeks on and 1 week off. Patient did not take dexamethasone as recommended by Dr. Blanco. Today is the last day of the off-week. Tomorrow patient will start a new cycle of the Revlimid. The patient herself claimed that She has been doing very well during the past 1 month. Patient denies any new onset pain. Patient denies any shortness of breath or chest pain. He denies any abdominal pain or diarrhea or constipation. Patient presents here today for scheduled follow-up. And also for review in of the lab results. SUMMARY OF ONCOLOGICAL HISTORY Multiple myeloma based on multiple lytic bony lesions with a pathologically diagnosed plasmacytoma and a prior M-spike at 0.3 g/dl which disappeared after initiation of treatment but with continued abnormal kappa-lambda light chain ratio. Original bone marrow biopsy March 2014 did not demonstrate myeloma. Treated with Revlimid with some problems with cytopenias. He underwent palliative radiation to multiple sites for pain. Of note, he had righe nephrectomy 09/2008 for renal cell carcinoma, high grade papillary, with chronic renal insufficiency. He has diabetes. Results - Imaging Additional studies: Procedures Biopsy of bone, other bones (04/23/14) Excision of lesion of other soft tissue (01/01/12) Inspection of Upper Intestinal Tract, Via Natural or Artificial Opening Endoscopic (01/30/16) Transfusion of Nonautologous Red Blood Cells into Central Vein, Percutaneous Approach (02/11/18) Home Medications and Allergies Home Medications Medication Instructions Recorded Confirmed Type gabapentin 600 mg PO TID #0 12/01/11 04/20/18 History cholecalciferol (vitamin D3) 2,000 iu PO QDAY #0 07/22/16 04/20/18 History [Vitamin D3] primidone [Mysoline] 4 tab PO QDAY #0 07/22/16 04/20/18 History propranolol 160 mg PO AMCC #0 07/22/16 04/20/18 History ipratropium bromide 2 spray INH BID #0 07/27/16 04/20/18 History lactulose 10 gm PO BID #360 ml 08/19/16 04/20/18 Rx [ZOMETA] QMONTH #0 04/12/17 History glipizide 5 mg PO AMAC #0 04/19/17 04/20/18 History lidocaine-prilocaine 1 don TOPICAL PRN PRN #30 gm 05/05/17 04/20/18 Rx multivitamin [Multiple Vitamins] 1 tab PO QDAY #0 05/12/17 04/20/18 History acetaminophen [Tylenol Extra 1,500 mg PO TID #0 10/01/17 04/20/18 History Strength] conjugated estrogens [Premarin] 0.3 mg PO HS #0 01/14/18 04/20/18 History eszopiclone 3 mg PO HS #0 01/14/18 04/20/18 History primidone [Mysoline] 100 mg PO BID #0 01/14/18 04/20/18 History propranolol 80 mg PO BID #0 01/14/18 04/20/18 History albuterol sulfate 1 puff INH QID #0 02/12/18 04/20/18 History clobetasol-emollient 0.05 pump TOPICAL Q8HP #0 02/12/18 04/20/18 History diphenoxylate-atropine 1 tab PO BID #0 02/12/18 04/20/18 History guaifenesin 600 mg PO BID #0 02/12/18 04/20/18 History ondansetron [Zofran ODT] 8 mg PO Q8HP PRN #0 02/12/18 04/20/18 History oxycodone [OxyContin] 10 mg PO Q3H PRN #0 02/12/18 04/20/18 History oxycodone [OxyContin] 20 mg PO Q3HP PRN #0 02/12/18 04/20/18 History melatonin 1 mg PO QDRHS PRN 03/09/18 03/30/18 History Ketoconazole 1 don TOPICAL BID 03/30/18 03/09/18 History levothyroxine 150 mcg PO DAILY 03/30/18 04/20/18 History loperamide 2 mg PO Q2-4H PRN 03/30/18 04/20/18 History melatonin 1 mg PO BEDTIME PRN 03/30/18 04/20/18 History omeprazole 40 mg PO DAILY 03/30/18 04/20/18 History sertraline 100 mg PO DAILY 03/30/18 04/20/18 History lenalidomide [Revlimid] 15 mg PO DAILY #21 cap 04/20/18 Rx Allergies Allergy/AdvReac Type Severity Reaction Status Date / Time morphine Allergy Severe STROKE Verified 04/20/18 13:22 LIKE SYMPTOMS levofloxacin Allergy Intermediate HIVES Verified 04/20/18 13:22 adhesive [ADHESIVE] Allergy Mild BLISTERS Verified 04/20/18 13:22 celecoxib Allergy Mild RASH, Verified 04/20/18 13:22 SMALL BLISTERS, NAUSEA Penicillins Allergy Mild RASH Verified 04/20/18 13:22 phenazopyridine Allergy Mild VOMITING Verified 04/20/18 13:22 [From PYRIDIUM] Sulfa (Sulfonamide Allergy Mild BLISTERS Verified 04/20/18 13:22 Antibiotics) lactose [LACTOSE] Allergy Unknown Verified 04/20/18 13:22 Exam Vital signs: Last Vital Signs Temp 96.4 F L 06/16/18 13:31 Pulse 56 L 06/16/18 13:31 Resp 18 06/16/18 13:31 BP 155/72 H 06/16/18 13:31 Pulse Ox 99 06/16/18 13:31
--- NOTE | 2018-06-20 14:20 | PC.NURSE ---
Reviewed pts labs dated 06/16. She had an appt with Dr Page that day but has some additional concerns regarding her kidney function and her WBC's based on something he said. Also reviewed Dr Brown notes and there was nothing that stood out or was stated that he was overly concerned about. Creatine is stable at 0.80 her WBCs were low at 2.3 but pt was just recovering from her revilimid cycle.
[2018-06-23 12:27] LABS: Add Manual Diff / Slide Review NO; Hematocrit 31.3 % (36-46); Hemoglobin 10.4 g/dL (12.0-16.0); Lymphocytes Percent Auto 19.3 % (25-40); Mean Corpuscular HGB Conc 33.1 % (30-36); Mean Corpuscular Volume 96.6 fL (80-100); Monocytes Percent Auto 8.6 % (3-14); Neutrophils Absolute Auto 1500 /uL (3000-5900); Neutrophils Percent Auto 55.1 % (50-75); Platelet Count 155 X10^3/uL (150-400); Red Blood Cell Count 3.24 X10^6/uL (4.0-5.2); Red Cell Distribution Width 16.2 % (11.6-14.8); White Blood Cell Count 2.7 X10^3/uL (4.5-11.0)
--- NOTE | 2018-06-23 14:58 | PC.NURSE ---
Labs stable with only a slight decline in WBC of 2.7
[2018-07-07 11:42] LABS: Hemoglobin 10.1 g/dL (12.0-16.0); Mean Corpuscular HGB Conc 33.7 % (30-36); Mean Corpuscular Hemoglobin 32.4 PG (26-34); Mean Corpuscular Volume 96.3 fL (80-100); Platelet Count 109 X10^3/uL (150-400); Red Blood Cell Count 3.12 X10^6/uL (4.0-5.2); Red Cell Distribution Width 17.2 % (11.6-14.8); White Blood Cell Count 3.2 X10^3/uL (4.5-11.0)
[2018-07-07 11:43] LABS: Add Manual Diff / Slide Review YES
[2018-07-07 11:49] LABS: Alanine Aminotransferase 15 IU/L (9-52); Albumin 3.4 g/dL (3.5-5.0); Albumin Globulin Ratio 1.3 (1.0-2.8); Alkaline Phosphatase 82 U/L (38-126); Aspartate Aminotransferase 17 IU/L (14-36); BUN Creatinine Ratio 27.8 (6-22); Bilirubin Total 0.4 mg/dL (0.2-1.3); Blood Urea Nitrogen 25 mg/dL (7-17); Carbon Dioxide 30 mmol/L (22-32); Chloride 104 mmol/L (98-107); Estimated Glomerular Filt Rate > 60.0 mL/min (>60); Globulin 2.7 g/dL (1.7-4.1); Glucose 135 mg/dL (80-110); HEMOLYSIS < 15 (0-50); Lactate Dehydrogenase 366 U/L (313-618); Potassium 4.6 mmol/L (3.4-5.1); Sodium 142 mmol/L (137-145); Total Protein 6.1 g/dL (6.3-8.2)
[2018-07-07 13:01] LABS: Neutrophils Absolute Manual 1664 /uL (3000-5900); Total Cells Counted 50
[2018-07-07 13:02] LABS: Anisocytosis 1+
[2018-07-09 13:51] LABS: Beta-2-Microglobulin 5.81 mg/L (< 2.52)
[2018-07-09 14:43] LABS: Immunoglobulin A 198 mg/dL (81-463); Immunoglobulin G, Quantitative 696 mg/dL (694-1618); Immunoglobulin M, Quantitative 33 mg/dL (48-271)
[2018-07-09 15:24] LABS: Free Kappa Light Chain 314.7 mg/L (3.3-19.4); Free Kappa/ Lambda Ratio 8.47 (0.26-1.65); Free Lambda 37.2 mg/L (5.7-26.3)
[2018-07-09 21:15] LABS: Albumin 3.2 g/dL (3.8-4.8); Alpha 1 Globulin 0.3 g/dL (0.2-0.3); Alpha 2 Globulin 0.8 g/dL (0.5-0.9); Beta 1 Globulin 0.4 g/dL (0.4-0.6); Gamma Globulin 0.7 g/dL (0.8-1.7); Protein, Total 5.7 g/dL (6.1-8.1)
[2018-07-14 12:44] VITALS: BP 153/84; PULSE 57; RESP 18; TEMP 35.9; O2SAT 97
--- NOTE | 2018-07-14 13:00 | ONC.PN ---
PN -Subjective Interval history: INTERIM EVENTS: No new events. She said the last time she forgot to tell me that she has a chronic upper back muscular pain for the past 5-6 years. Recently she saw her primary care provider and a new muscle relaxant starting with a later T was prescribed. She is trying on this medication, but not sure if it is working or not. Patient has already seen orthopedics or pain specialist in the past and the no effective therapies. For her MM, she is now taking Revlimid 15 mg once a day 3 weeks on and 1 week off. Patient did not take dexamethasone as recommended by Dr. Blanco. SUMMARY OF ONCOLOGICAL HISTORY Multiple myeloma based on multiple lytic bony lesions with a pathologically diagnosed plasmacytoma and a prior M-spike at 0.3 g/dl which disappeared after initiation of treatment but with continued abnormal kappa-lambda light chain ratio. Original bone marrow biopsy March 2014 did not demonstrate myeloma. Treated with Revlimid with some problems with cytopenias. He underwent palliative radiation to multiple sites for pain. Of note, he had righe nephrectomy 09/2008 for renal cell carcinoma, high grade papillary, with chronic renal insufficiency. He has diabetes. - Additional ROS All systems PM: reviewed and no additional remarkable complaints except as stated Home Medications and Allergies Home Medications Medication Instructions Recorded Confirmed Type gabapentin 600 mg PO TID #0 12/01/11 04/20/18 History cholecalciferol (vitamin D3) 2,000 iu PO QDAY #0 07/22/16 04/20/18 History [Vitamin D3] primidone [Mysoline] 4 tab PO QDAY #0 07/22/16 04/20/18 History propranolol 160 mg PO AMCC #0 07/22/16 04/20/18 History ipratropium bromide 2 spray INH BID #0 07/27/16 04/20/18 History lactulose 10 gm PO BID #360 ml 08/19/16 04/20/18 Rx [ZOMETA] QMONTH #0 04/12/17 History glipizide 5 mg PO AMAC #0 04/19/17 04/20/18 History lidocaine-prilocaine 1 don TOPICAL PRN PRN #30 gm 05/05/17 04/20/18 Rx multivitamin [Multiple Vitamins] 1 tab PO QDAY #0 05/12/17 04/20/18 History acetaminophen [Tylenol Extra 1,500 mg PO TID #0 10/01/17 04/20/18 History Strength] conjugated estrogens [Premarin] 0.3 mg PO HS #0 01/14/18 04/20/18 History eszopiclone 3 mg PO HS #0 01/14/18 04/20/18 History primidone [Mysoline] 100 mg PO BID #0 01/14/18 04/20/18 History propranolol 80 mg PO BID #0 01/14/18 04/20/18 History albuterol sulfate 1 puff INH QID #0 02/12/18 04/20/18 History clobetasol-emollient 0.05 pump TOPICAL Q8HP #0 02/12/18 04/20/18 History diphenoxylate-atropine 1 tab PO BID #0 02/12/18 04/20/18 History guaifenesin 600 mg PO BID #0 02/12/18 04/20/18 History ondansetron [Zofran ODT] 8 mg PO Q8HP PRN #0 02/12/18 04/20/18 History oxycodone [OxyContin] 10 mg PO Q3H PRN #0 02/12/18 04/20/18 History oxycodone [OxyContin] 20 mg PO Q3HP PRN #0 02/12/18 04/20/18 History melatonin 1 mg PO QDRHS PRN 03/09/18 03/30/18 History Ketoconazole 1 don TOPICAL BID 03/30/18 03/09/18 History levothyroxine 150 mcg PO DAILY 03/30/18 04/20/18 History loperamide 2 mg PO Q2-4H PRN 03/30/18 04/20/18 History melatonin 1 mg PO BEDTIME PRN 03/30/18 04/20/18 History omeprazole 40 mg PO DAILY 03/30/18 04/20/18 History sertraline 100 mg PO DAILY 03/30/18 04/20/18 History lenalidomide [Revlimid] 15 mg PO DAILY #21 cap 04/20/18 Rx Allergies Allergy/AdvReac Type Severity Reaction Status Date / Time morphine Allergy Severe STROKE Verified 04/20/18 13:22 LIKE SYMPTOMS levofloxacin Allergy Intermediate HIVES Verified 04/20/18 13:22 adhesive [ADHESIVE] Allergy Mild BLISTERS Verified 04/20/18 13:22 celecoxib Allergy Mild RASH, Verified 04/20/18 13:22 SMALL BLISTERS, NAUSEA Penicillins Allergy Mild RASH Verified 04/20/18 13:22 phenazopyridine Allergy Mild VOMITING Verified 04/20/18 13:22 [From PYRIDIUM] Sulfa (Sulfonamide Allergy Mild BLISTERS Verified 04/20/18 13:22 Antibiotics) lactose [LACTOSE] Allergy Unknown Verified 04/20/18 13:22 Exam Vital signs: Last Vital Signs Temp 96.6 F L 07/14/18 12:44 Pulse 57 L 07/14/18 12:44 Resp 18 07/14/18 12:44 BP 153/84 H 07/14/18 12:44 Pulse Ox 97 07/14/18 12:44 - Constitutional positive no acute distress, positive chronically ill appearing, positive cooperative - Routine HEENT Exam Head: Present: normocephalic, atraumatic Eye: Present: EOMI, PERRL, normal accommodation. Absent: conjunctival icterus ENT: Present: mucous membranes moist - Routine Neck Exam Present: supple, trachea midline. Absent: lymphadenopathy, thyromegaly, tracheal deviation - Routine Respiratory Exam Present: Clear to auscultation bilaterally. Absent: wheezes - Routine Cardiovascular Exam Present: RRR, S1, S2. Absent: murmur, gallop, rubs - Routine Abdominal Exam Present: soft, normoactive bowel sounds. Absent: organomegaly - Routine Extremities Exam Absent: edema - Routine Neurological Exam Present: alert, oriented X3, CN II-XII intact, normal reflexes. Absent: sensory deficit, motor deficit - Routine Psychiatric Exam Present: normal affect, normal thought process, cooperative, good insight, good judgment Results - Labs Laboratory Last Values WBC 3.2 X10^3/uL (4.5-11.0) L 07/07/18 11:12 RBC 3.12 X10^6/uL (4.0-5.2) L 07/07/18 11:12 Hgb 10.1 g/dL (12.0-16.0) L 07/07/18 11:12 Hct 30.0 % (36-46) L 07/07/18 11:12 MCV 96.3 fL (80-100) 07/07/18 11:12 MCH 32.4 PG (26-34) 07/07/18 11:12 MCHC 33.7 % (30-36) 07/07/18 11:12 RDW 17.2 % (11.6-14.8) H 07/07/18 11:12 Plt Count 109 X10^3/uL (150-400) L 07/07/18 11:12 Neut % (Auto) Not Reportable 07/07/18 11:12 Lymph % (Auto) Not Reportable 07/07/18 11:12 [place] % (Auto) Not Reportable 07/07/18 11:12 Eos % (Auto) Not Reportable 07/07/18 11:12 Baso % (Auto) Not Reportable 07/07/18 11:12 Neut # (Auto) 1500 /uL (6063-3398) L 06/23/18 11:14 Total Counted 50 07/07/18 11:12 Seg Neutrophils % 52.0 % (38-70) 07/07/18 11:12 Lymphocytes % (Manual) 22.0 % (25-45) L 07/07/18 11:12 Monocytes % (Manual) 2.0 % (2-11) 07/07/18 11:12 Eosinophils % (Manual) 22.0 % (2-4) H 07/07/18 11:12 Basophils % (Manual) 2.0 % (0-1) H 07/07/18 11:12 Neutrophils # (Manual) 1664 /uL (6681-8924) L 07/07/18 11:12 RBC Morphology Not Reportable 07/07/18 11:12 Anisocytosis 1+ H 07/07/18 11:12 Sodium 142 mmol/L (137-145) 07/07/18 11:12 Potassium 4.6 mmol/L (3.4-5.1) 07/07/18 11:12 Chloride 104 mmol/L (98-107) 07/07/18 11:12 Carbon Dioxide 30 mmol/L (22-32) 07/07/18 11:12 BUN 25 mg/dL (7-17) H 07/07/18 11:12 Creatinine 0.90 mg/dL (0.52-1.04) 07/07/18 11:12 Estimated GFR > 60.0 mL/min (>60) 07/07/18 11:12 BUN/Creatinine Ratio 27.8 (6-22) H 07/07/18 11:12 Glucose 135 mg/dL (80-110) H 07/07/18 11:12 Calcium 8.0 mg/dL (8.4-10.2) L 07/07/18 11:12 Total Bilirubin 0.4 mg/dL (0.2-1.3) 07/07/18 11:12 AST 17 IU/L (14-36) 07/07/18 11:12 ALT 15 IU/L (9-52) 07/07/18 11:12 Alkaline Phosphatase 82 U/L (38-126) 07/07/18 11:12 Lactate Dehydrogenase 366 U/L (313-618) 07/07/18 11:12 Serum Total Protein 5.7 g/dL (6.1-8.1) L 07/07/18 11:12 Total Protein 6.1 g/dL (6.3-8.2) L 07/07/18 11:12 Albumin 3.2 g/dL (3.8-4.8) L 07/07/18 11:12 Globulin 2.7 g/dL (1.7-4.1) 07/07/18 11:12 Albumin/Globulin Ratio 1.3 (1.0-2.8) 07/07/18 11:12 Rphtc-2-Pvzwjkfyj 0.3 g/dL (0.2-0.3) 07/07/18 11:12 Mkyxi-4-Ycqjtoetm 0.8 g/dL (0.5-0.9) 07/07/18 11:12 Ryuw-6-Yjfnimxb 0.4 g/dL (0.4-0.6) 07/07/18 11:12 Nfpd-3-Jzcfigon 0.3 g/dL (0.2-0.5) 07/07/18 11:12 Wvvp-2-Lhcqsyervbhop 5.81 mg/L (< 2.52) H 07/07/18 11:28 Gamma Globulins 0.7 g/dL (0.8-1.7) L 07/07/18 11:12 Abnorm Protein Band 1 Not Reportable 07/07/18 11:12 Abnorm Protein Band 2 Not Reportable 07/07/18 11:12 Abn Gamma Band 3 Serum Not Reportable 07/07/18 11:12 PEP Comment See note 07/07/18 11:12 IgG, Serum (MS) 696 mg/dL (694-1618) 07/07/18 11:12 IgA 198 mg/dL (81-463) 07/07/18 11:12 IgM 33 mg/dL (48-271) L 07/07/18 11:12 Free [place] Light Chains 314.7 mg/L (3.3-19.4) H 07/07/18 11:12 Free Lambda Light Chain 37.2 mg/L (5.7-26.3) H 07/07/18 11:12 Free [place]/Lambda Ratio 8.47 (0.26-1.65) H 07/07/18 11:12 - Imaging Additional studies: Procedures Biopsy of bone, other bones (04/23/14) Excision of lesion of other soft tissue (01/01/12) Inspection of Upper Intestinal Tract, Via Natural or Artificial Opening Endoscopic (01/30/16) Transfusion of Nonautologous Red Blood Cells into Central Vein, Percutaneous Approach (02/11/18) Assessment and Plan (1) Multiple myeloma Current visit: Yes Status: Chronic I reviewed the lab results with the patient. Even though the monoclonal protein is faint on SPEP, the serum kappa free light chain did show an upward trend. I talked with the patient for the time being, I think we need to continue the current treatment without any changes. I will refill the medication Revlimid 15 mg daily 3 weeks on and 1 week off. I will have the patient come back for follow-up visit. And I talked with her she can come here a couple of days earlier to get the blood work done which included CBC, CMP, LDH, beta 2 microglobulin, SPEP with reflex IFX, serum free light chain and quantitative immunoglobulin. Patient voiced understanding. Depending on the responses, if there is a significant change or may consider changing the current regimen. We will see the patient in 1 month.
--- NOTE | 2018-07-14 13:05 | P.PNONC_ITS ---
PN -Subjective Interval history: INTERIM EVENTS: No new events. She said the last time she forgot to tell me that she has a chronic upper back muscular pain for the past 5-6 years. Recently she saw her primary care provider and a new muscle relaxant starting with a later T was prescribed. She is trying on this medication, but not sure if it is working or not. Patient has already seen orthopedics or pain specialist in the past and the no effective therapies. For her MM, she is now taking Revlimid 15 mg once a day 3 weeks on and 1 week off. Patient did not take dexamethasone as recommended by Dr. Blanco. SUMMARY OF ONCOLOGICAL HISTORY Multiple myeloma based on multiple lytic bony lesions with a pathologically diagnosed plasmacytoma and a prior M-spike at 0.3 g/dl which disappeared after initiation of treatment but with continued abnormal kappa-lambda light chain ratio. Original bone marrow biopsy March 2014 did not demonstrate myeloma. Treated with Revlimid with some problems with cytopenias. He underwent palliative radiation to multiple sites for pain. Of note, he had righe nephrectomy 09/2008 for renal cell carcinoma, high grade papillary, with chronic renal insufficiency. He has diabetes. - Additional ROS All systems PM: reviewed and no additional remarkable complaints except as stated Home Medications and Allergies Home Medications Medication Instructions Recorded Confirmed Type gabapentin 600 mg PO TID #0 12/01/11 04/20/18 History cholecalciferol (vitamin D3) 2,000 iu PO QDAY #0 07/22/16 04/20/18 History [Vitamin D3] primidone [Mysoline] 4 tab PO QDAY #0 07/22/16 04/20/18 History propranolol 160 mg PO AMCC #0 07/22/16 04/20/18 History ipratropium bromide 2 spray INH BID #0 07/27/16 04/20/18 History lactulose 10 gm PO BID #360 ml 08/19/16 04/20/18 Rx [ZOMETA] QMONTH #0 04/12/17 History glipizide 5 mg PO AMAC #0 04/19/17 04/20/18 History lidocaine-prilocaine 1 don TOPICAL PRN PRN #30 gm 05/05/17 04/20/18 Rx multivitamin [Multiple Vitamins] 1 tab PO QDAY #0 05/12/17 04/20/18 History acetaminophen [Tylenol Extra 1,500 mg PO TID #0 10/01/17 04/20/18 History Strength] conjugated estrogens [Premarin] 0.3 mg PO HS #0 01/14/18 04/20/18 History eszopiclone 3 mg PO HS #0 01/14/18 04/20/18 History primidone [Mysoline] 100 mg PO BID #0 01/14/18 04/20/18 History propranolol 80 mg PO BID #0 01/14/18 04/20/18 History albuterol sulfate 1 puff INH QID #0 02/12/18 04/20/18 History clobetasol-emollient 0.05 pump TOPICAL Q8HP #0 02/12/18 04/20/18 History diphenoxylate-atropine 1 tab PO BID #0 02/12/18 04/20/18 History guaifenesin 600 mg PO BID #0 02/12/18 04/20/18 History ondansetron [Zofran ODT] 8 mg PO Q8HP PRN #0 02/12/18 04/20/18 History oxycodone [OxyContin] 10 mg PO Q3H PRN #0 02/12/18 04/20/18 History oxycodone [OxyContin] 20 mg PO Q3HP PRN #0 02/12/18 04/20/18 History melatonin 1 mg PO QDRHS PRN 03/09/18 03/30/18 History Ketoconazole 1 don TOPICAL BID 03/30/18 03/09/18 History levothyroxine 150 mcg PO DAILY 03/30/18 04/20/18 History loperamide 2 mg PO Q2-4H PRN 03/30/18 04/20/18 History melatonin 1 mg PO BEDTIME PRN 03/30/18 04/20/18 History omeprazole 40 mg PO DAILY 03/30/18 04/20/18 History sertraline 100 mg PO DAILY 03/30/18 04/20/18 History lenalidomide [Revlimid] 15 mg PO DAILY #21 cap 04/20/18 Rx Allergies Allergy/AdvReac Type Severity Reaction Status Date / Time morphine Allergy Severe STROKE Verified 04/20/18 13:22 LIKE SYMPTOMS levofloxacin Allergy Intermediate HIVES Verified 04/20/18 13:22 adhesive [ADHESIVE] Allergy Mild BLISTERS Verified 04/20/18 13:22 celecoxib Allergy Mild RASH, Verified 04/20/18 13:22 SMALL BLISTERS, NAUSEA Penicillins Allergy Mild RASH Verified 04/20/18 13:22 phenazopyridine Allergy Mild VOMITING Verified 04/20/18 13:22 [From PYRIDIUM] Sulfa (Sulfonamide Allergy Mild BLISTERS Verified 04/20/18 13:22 Antibiotics) lactose [LACTOSE] Allergy Unknown Verified 04/20/18 13:22 Exam Vital signs: Last Vital Signs Temp 96.6 F L 07/14/18 12:44 Pulse 57 L 07/14/18 12:44 Resp 18 07/14/18 12:44 BP 153/84 H 07/14/18 12:44 Pulse Ox 97 07/14/18 12:44 - Constitutional positive no acute distress, positive chronically ill appearing, positive cooperative - Routine HEENT Exam Head: Present: normocephalic, atraumatic Eye: Present: EOMI, PERRL, normal accommodation. Absent: conjunctival icterus ENT: Present: mucous membranes moist - Routine Neck Exam Present: supple, trachea midline. Absent: lymphadenopathy, thyromegaly, tracheal deviation - Routine Respiratory Exam Present: Clear to auscultation bilaterally. Absent: wheezes - Routine Cardiovascular Exam Present: RRR, S1, S2. Absent: murmur, gallop, rubs - Routine Abdominal Exam Present: soft, normoactive bowel sounds. Absent: organomegaly - Routine Extremities Exam Absent: edema - Routine Neurological Exam Present: alert, oriented X3, CN II-XII intact, normal reflexes. Absent: sensory deficit, motor deficit - Routine Psychiatric Exam Present: normal affect, normal thought process, cooperative, good insight, good judgment Results - Labs Laboratory Last Values WBC 3.2 X10^3/uL (4.5-11.0) L 07/07/18 11:12 RBC 3.12 X10^6/uL (4.0-5.2) L 07/07/18 11:12 Hgb 10.1 g/dL (12.0-16.0) L 07/07/18 11:12 Hct 30.0 % (36-46) L 07/07/18 11:12 MCV 96.3 fL (80-100) 07/07/18 11:12 MCH 32.4 PG (26-34) 07/07/18 11:12 MCHC 33.7 % (30-36) 07/07/18 11:12 RDW 17.2 % (11.6-14.8) H 07/07/18 11:12 Plt Count 109 X10^3/uL (150-400) L 07/07/18 11:12 Neut % (Auto) Not Reportable 07/07/18 11:12 Lymph % (Auto) Not Reportable 07/07/18 11:12 [place] % (Auto) Not Reportable 07/07/18 11:12 Eos % (Auto) Not Reportable 07/07/18 11:12 Baso % (Auto) Not Reportable 07/07/18 11:12 Neut # (Auto) 1500 /uL (9287-2078) L 06/23/18 11:14 Total Counted 50 07/07/18 11:12 Seg Neutrophils % 52.0 % (38-70) 07/07/18 11:12 Lymphocytes % (Manual) 22.0 % (25-45) L 07/07/18 11:12 Monocytes % (Manual) 2.0 % (2-11) 07/07/18 11:12 Eosinophils % (Manual) 22.0 % (2-4) H 07/07/18 11:12 Basophils % (Manual) 2.0 % (0-1) H 07/07/18 11:12 Neutrophils # (Manual) 1664 /uL (4148-4452) L 07/07/18 11:12 RBC Morphology Not Reportable 07/07/18 11:12 Anisocytosis 1+ H 07/07/18 11:12 Sodium 142 mmol/L (137-145) 07/07/18 11:12 Potassium 4.6 mmol/L (3.4-5.1) 07/07/18 11:12 Chloride 104 mmol/L (98-107) 07/07/18 11:12 Carbon Dioxide 30 mmol/L (22-32) 07/07/18 11:12 BUN 25 mg/dL (7-17) H 07/07/18 11:12 Creatinine 0.90 mg/dL (0.52-1.04) 07/07/18 11:12 Estimated GFR > 60.0 mL/min (>60) 07/07/18 11:12 BUN/Creatinine Ratio 27.8 (6-22) H 07/07/18 11:12 Glucose 135 mg/dL (80-110) H 07/07/18 11:12 Calcium 8.0 mg/dL (8.4-10.2) L 07/07/18 11:12 Total Bilirubin 0.4 mg/dL (0.2-1.3) 07/07/18 11:12 AST 17 IU/L (14-36) 07/07/18 11:12 ALT 15 IU/L (9-52) 07/07/18 11:12 Alkaline Phosphatase 82 U/L (38-126) 07/07/18 11:12 Lactate Dehydrogenase 366 U/L (313-618) 07/07/18 11:12 Serum Total Protein 5.7 g/dL (6.1-8.1) L 07/07/18 11:12 Total Protein 6.1 g/dL (6.3-8.2) L 07/07/18 11:12 Albumin 3.2 g/dL (3.8-4.8) L 07/07/18 11:12 Globulin 2.7 g/dL (1.7-4.1) 07/07/18 11:12 Albumin/Globulin Ratio 1.3 (1.0-2.8) 07/07/18 11:12 Cbbuj-0-Dnemskdvo 0.3 g/dL (0.2-0.3) 07/07/18 11:12 Cgqrw-7-Evogfdgyu 0.8 g/dL (0.5-0.9) 07/07/18 11:12 Nacm-2-Pmvrwxxc 0.4 g/dL (0.4-0.6) 07/07/18 11:12 Rypu-2-Nefptcmm 0.3 g/dL (0.2-0.5) 07/07/18 11:12 Lvwm-5-Tihifvjlnyngf 5.81 mg/L (< 2.52) H 07/07/18 11:28 Gamma Globulins 0.7 g/dL (0.8-1.7) L 07/07/18 11:12 Abnorm Protein Band 1 Not Reportable 07/07/18 11:12 Abnorm Protein Band 2 Not Reportable 07/07/18 11:12 Abn Gamma Band 3 Serum Not Reportable 07/07/18 11:12 PEP Comment See note 07/07/18 11:12 IgG, Serum (MS) 696 mg/dL (694-1618) 07/07/18 11:12 IgA 198 mg/dL (81-463) 07/07/18 11:12 IgM 33 mg/dL (48-271) L 07/07/18 11:12 Free [place] Light Chains 314.7 mg/L (3.3-19.4) H 07/07/18 11:12 Free Lambda Light Chain 37.2 mg/L (5.7-26.3) H 07/07/18 11:12 Free [place]/Lambda Ratio 8.47 (0.26-1.65) H 07/07/18 11:12 - Imaging Additional studies: Procedures Biopsy of bone, other bones (04/23/14) Excision of lesion of other soft tissue (01/01/12) Inspection of Upper Intestinal Tract, Via Natural or Artificial Opening Endoscopic (01/30/16) Transfusion of Nonautologous Red Blood Cells into Central Vein, Percutaneous Approach (02/11/18) Assessment and Plan (1) Multiple myeloma Current visit: Yes Status: Chronic I reviewed the lab results with the patient. Even though the monoclonal protein is faint on SPEP, the serum kappa free light chain did show an upward trend. I talked with the patient for the time being, I think we need to continue the current treatment without any changes. I will refill the medication Revlimid 15 mg daily 3 weeks on and 1 week off. I will have the patient come back for follow-up visit. And I talked with her she can come here a couple of days earlier to get the blood work done which included CBC, CMP, LDH , beta 2 microglobulin, SPEP with reflex IFX, serum free light chain and quantitative immunoglobulin. Patient voiced understanding. Depending on the responses, if there is a significant change or may consider changing the current regimen. We will see the patient in 1 month.
--- NOTE | 2018-07-18 12:49 | PC.NURSE ---
Received a call from [facility] regarding shipping pts Revlimid. They have been unsuccessful in contacting pt to set up a delivery time. I called her daughter today and explained that they are ready to ship but pt is not answering her phone. She will call [facility] herself and set up delivery date.
[2018-08-05 10:22] LABS: Add Manual Diff / Slide Review NO; Basophils Percent Auto 1.6 % (0-2); Eosinophils Percent Auto 14.2 % (2-4); Hematocrit 32.9 % (36-46); Hemoglobin 10.8 g/dL (12.0-16.0); Lymphocytes Percent Auto 20.4 % (25-40); Mean Corpuscular HGB Conc 32.9 % (30-36); Mean Corpuscular Hemoglobin 32.6 PG (26-34); Mean Corpuscular Volume 99.2 fL (80-100); Monocytes Percent Auto 7.7 % (3-14); Neutrophils Absolute Auto 1600 /uL (3000-5900); Neutrophils Percent Auto 56.1 % (50-75); Platelet Count 147 X10^3/uL (150-400); Red Blood Cell Count 3.31 X10^6/uL (4.0-5.2); Red Cell Distribution Width 18.9 % (11.6-14.8); White Blood Cell Count 2.9 X10^3/uL (4.5-11.0)
[2018-08-05 10:38] LABS: Alanine Aminotransferase 26 IU/L (9-52); Albumin 3.7 g/dL (3.5-5.0); Albumin Globulin Ratio 1.4 (1.0-2.8); Alkaline Phosphatase 78 U/L (38-126); Aspartate Aminotransferase 20 IU/L (14-36); BUN Creatinine Ratio 23.8 (6-22); Bilirubin Total 0.5 mg/dL (0.2-1.3); Blood Urea Nitrogen 19 mg/dL (7-17); Calcium 8.4 mg/dL (8.4-10.2); Carbon Dioxide 30 mmol/L (22-32); Chloride 102 mmol/L (98-107); Estimated Glomerular Filt Rate > 60.0 mL/min (>60); Globulin 2.7 g/dL (1.7-4.1); Glucose 128 mg/dL (80-110); HEMOLYSIS 26 (0-50); Lactate Dehydrogenase 526 U/L (313-618); Potassium 4.5 mmol/L (3.4-5.1); Sodium 140 mmol/L (137-145); Total Protein 6.4 g/dL (6.3-8.2)
[2018-08-06 13:32] LABS: Immunoglobulin A 200 mg/dL (81-463); Immunoglobulin G, Quantitative 698 mg/dL (694-1618); Immunoglobulin M, Quantitative 28 mg/dL (48-271)
[2018-08-06 14:21] LABS: Beta-2-Microglobulin 4.55 mg/L (< 2.52)
[2018-08-06 14:29] LABS: Free Kappa Light Chain 283.6 mg/L (3.3-19.4); Free Kappa/ Lambda Ratio 10.19 (0.26-1.65); Free Lambda 27.8 mg/L (5.7-26.3)
[2018-08-08 19:46] LABS: Albumin 3.4 g/dL (3.8-4.8); Alpha 1 Globulin 0.4 g/dL (0.2-0.3); Alpha 2 Globulin 0.8 g/dL (0.5-0.9); Beta 1 Globulin 0.4 g/dL (0.4-0.6); Gamma Globulin 0.7 g/dL (0.8-1.7); Protein, Total 6.1 g/dL (6.1-8.1)
--- NOTE | 2018-08-12 12:00 | ONC.PN ---
PN -Subjective Interval history: Chief complaint 78-year-old female with multiple myeloma Oncological history Multiple myeloma based on multiple lytic bony lesions with a pathologically diagnosed plasmacytoma and a prior M-spike at 0.3 g/dl which disappeared after initiation of treatment but with continued abnormal kappa-lambda light chain ratio. Original bone marrow biopsy March 2014 did not demonstrate myeloma. Treated with Revlimid with some problems with cytopenias. She underwent palliative radiation to multiple sites for pain. Of note, he had righe nephrectomy 09/2008 for renal cell carcinoma, high grade papillary, with chronic renal insufficiency. She has diabetes. Interim events She is now taking Revlimid 15 mg once a day 3 weeks on 1 week off. She is not taking dexamethasone. Patient said that she feels ?good?. He denies any new events. She presents here today for scheduled follow-up. Patient underwent blood test on August 05, 2018. - Additional ROS All systems PM: reviewed and no additional remarkable complaints except as stated Home Medications and Allergies Home Medications Medication Instructions Recorded Confirmed Type gabapentin 600 mg PO TID #0 12/01/11 08/12/18 History cholecalciferol (vitamin D3) 2,000 iu PO QDAY #0 07/22/16 08/12/18 History [Vitamin D3] primidone [Mysoline] 4 tab PO QDAY #0 07/22/16 08/12/18 History propranolol 160 mg PO AMCC #0 07/22/16 08/12/18 History ipratropium bromide 2 spray INH BID #0 07/27/16 08/12/18 History lactulose 10 gm PO BID #360 ml 08/19/16 08/12/18 Rx [ZOMETA] QMONTH #0 04/12/17 History glipizide 5 mg PO AMAC #0 04/19/17 08/12/18 History lidocaine-prilocaine 1 don TOPICAL PRN PRN #30 gm 05/05/17 08/12/18 Rx multivitamin [Multiple Vitamins] 1 tab PO QDAY #0 05/12/17 08/12/18 History acetaminophen [Tylenol Extra 1,500 mg PO TID #0 10/01/17 08/12/18 History Strength] conjugated estrogens [Premarin] 0.3 mg PO HS #0 01/14/18 08/12/18 History eszopiclone 3 mg PO HS #0 01/14/18 08/12/18 History primidone [Mysoline] 100 mg PO BID #0 01/14/18 08/12/18 History propranolol 80 mg PO BID #0 01/14/18 08/12/18 History albuterol sulfate 1 puff INH QID #0 02/12/18 08/12/18 History clobetasol-emollient 0.05 pump TOPICAL Q8HP #0 02/12/18 08/12/18 History diphenoxylate-atropine 1 tab PO BID #0 02/12/18 08/12/18 History guaifenesin 600 mg PO BID #0 02/12/18 08/12/18 History ondansetron [Zofran ODT] 8 mg PO Q8HP PRN #0 02/12/18 08/12/18 History oxycodone [OxyContin] 10 mg PO Q3H PRN #0 02/12/18 08/12/18 History oxycodone [OxyContin] 20 mg PO Q3HP PRN #0 02/12/18 08/12/18 History Ketoconazole 1 don TOPICAL BID 03/30/18 08/12/18 History levothyroxine 150 mcg PO DAILY 03/30/18 08/12/18 History loperamide 2 mg PO Q2-4H PRN 03/30/18 08/12/18 History melatonin 1 mg PO BEDTIME PRN 03/30/18 08/12/18 History omeprazole 40 mg PO DAILY 03/30/18 08/12/18 History sertraline 100 mg PO DAILY 03/30/18 08/12/18 History lenalidomide [Revlimid] 15 mg PO DAILY #21 cap 04/20/18 08/12/18 Rx Allergies Allergy/AdvReac Type Severity Reaction Status Date / Time morphine Allergy Severe STROKE Verified 04/20/18 13:22 LIKE SYMPTOMS levofloxacin Allergy Intermediate HIVES Verified 04/20/18 13:22 adhesive [ADHESIVE] Allergy Mild BLISTERS Verified 04/20/18 13:22 celecoxib Allergy Mild RASH, Verified 04/20/18 13:22 SMALL BLISTERS, NAUSEA Penicillins Allergy Mild RASH Verified 04/20/18 13:22 phenazopyridine Allergy Mild VOMITING Verified 04/20/18 13:22 [From PYRIDIUM] Sulfa (Sulfonamide Allergy Mild BLISTERS Verified 04/20/18 13:22 Antibiotics) lactose [LACTOSE] Allergy Unknown Verified 04/20/18 13:22 Exam Vital signs: Temp 98.7 F 08/12/18 12:06 Pulse 59 L 08/12/18 12:06 Resp 15 08/12/18 12:06 BP 125/65 08/12/18 12:06 Pulse Ox 93 08/12/18 12:06 ECOG 1 Narrative: Constitutional: Well developed, well nourished, not in any acute respiratory distress, in wheelchair. HEENT: Normocephalic atraumatic. Extraocular muscle movement intact. Pupils are round, equal and reactive to light and accommodations. Anicteric sclera. No hearing difficulty; Oral mucus membrane moist and without ulcers. Neck: Supple, symmetrical, and tracheal midline; No palpable thyromegaly and no palpable lymph nodes. Respiratory: No use of accessory muscles. Clear to auscultation, and no wheezes or rales or rubs. Cardiovascular: Regular rate and rhythm, S1 and S2 normal, no murmurs gallops or rubs. No JVD. No pitting edema of lower extremities. Abdomen: Soft, nontender, non-distended, bowel sounds normal, no palpable organomegaly, no hernia, no palpable masses. Lower extremities: No palpable pedal edema. Lymphatic: no palpable lymph nodes in the neck, axillae, or groins. Musculoskeletal: normal gait and station, no clubbing, no cyanosis, no pitting edema. Skin: no rashes, no ulcers, no petechiae Neurological: Awake and alert and oriented x3. CN II-XII grossly intact. No focal motor or sensory deficit. Psychiatric: Good judgment, good insight, normal affect, normal thought process, cooperative, no depression, no anxiety. Results - Labs WBC 2.9 X10^3/uL (4.5-11.0) L 08/05/18 10:05 RBC 3.31 X10^6/uL (4.0-5.2) L 08/05/18 10:05 Hgb 10.8 g/dL (12.0-16.0) L 08/05/18 10:05 Hct 32.9 % (36-46) L 08/05/18 10:05 MCV 99.2 fL (80-100) 08/05/18 10:05 MCH 32.6 PG (26-34) 08/05/18 10:05 MCHC 32.9 % (30-36) 08/05/18 10:05 RDW 18.9 % (11.6-14.8) H 08/05/18 10:05 Plt Count 147 X10^3/uL (150-400) L 08/05/18 10:05 Neut % (Auto) 56.1 % (50-75) 08/05/18 10:05 Lymph % (Auto) 20.4 % (25-40) L 08/05/18 10:05 [place] % (Auto) 7.7 % (3-14) 08/05/18 10:05 Eos % (Auto) 14.2 % (2-4) H 08/05/18 10:05 Baso % (Auto) 1.6 % (0-2) 08/05/18 10:05 Neut # (Auto) 1600 /uL (1847-5418) L 08/05/18 10:05 Sodium 140 mmol/L (137-145) 08/05/18 10:05 Potassium 4.5 mmol/L (3.4-5.1) 08/05/18 10:05 Chloride 102 mmol/L (98-107) 08/05/18 10:05 Carbon Dioxide 30 mmol/L (22-32) 08/05/18 10:05 BUN 19 mg/dL (7-17) H 08/05/18 10:05 Creatinine 0.80 mg/dL (0.52-1.04) 08/05/18 10:05 Estimated GFR > 60.0 mL/min (>60) 08/05/18 10:05 BUN/Creatinine Ratio 23.8 (6-22) H 08/05/18 10:05 Glucose 128 mg/dL (80-110) H 08/05/18 10:05 Calcium 8.4 mg/dL (8.4-10.2) 08/05/18 10:05 Total Bilirubin 0.5 mg/dL (0.2-1.3) 08/05/18 10:05 AST 20 IU/L (14-36) 08/05/18 10:05 ALT 26 IU/L (9-52) 08/05/18 10:05 Alkaline Phosphatase 78 U/L (38-126) 08/05/18 10:05 Lactate Dehydrogenase 526 U/L (313-618) 08/05/18 10:05 Serum Total Protein 6.1 g/dL (6.1-8.1) 08/05/18 10:05 Total Protein 6.4 g/dL (6.3-8.2) 08/05/18 10:05 Albumin 3.4 g/dL (3.8-4.8) L 08/05/18 10:05 Globulin 2.7 g/dL (1.7-4.1) 08/05/18 10:05 Albumin/Globulin Ratio 1.4 (1.0-2.8) 08/05/18 10:05 Akhcq-2-Jihcbuwes 0.4 g/dL (0.2-0.3) A 08/05/18 10:05 Keffb-6-Odcucqgbb 0.8 g/dL (0.5-0.9) 08/05/18 10:05 Ugql-3-Thiexrxi 0.4 g/dL (0.4-0.6) 08/05/18 10:05 Tzbl-5-Ywwmtqey 0.4 g/dL (0.2-0.5) 08/05/18 10:05 Qwbo-9-Owtylotuiaono 4.55 mg/L (< 2.52) H 08/05/18 10:05 Gamma Globulins 0.7 g/dL (0.8-1.7) L 08/05/18 10:05 Abnorm Protein Band 1 Not Reportable 08/05/18 10:05 Abnorm Protein Band 2 Not Reportable 08/05/18 10:05 Abn Gamma Band 3 Serum Not Reportable 08/05/18 10:05 IgG, Serum (MS) 698 mg/dL (694-1618) 08/05/18 10:05 IgA 200 mg/dL (81-463) 08/05/18 10:05 IgM 28 mg/dL (48-271) L 08/05/18 10:05 Free Tiburones Light Chains 283.6 mg/L (3.3-19.4) H 08/05/18 10:05 Free Lambda Light Chain 27.8 mg/L (5.7-26.3) H 08/05/18 10:05 Free Tiburones/Lambda Ratio 10.19 (0.26-1.65) H 08/05/18 10:05 - Imaging Additional studies: Procedures Biopsy of bone, other bones (04/23/14) Excision of lesion of other soft tissue (01/01/12) Inspection of Upper Intestinal Tract, Via Natural or Artificial Opening Endoscopic (01/30/16) Transfusion of Nonautologous Red Blood Cells into Central Vein, Percutaneous Approach (02/11/18) Assessment and Plan (1) Multiple myeloma Current visit: Yes Status: Chronic I reviewed the lab results from 08/05/2018 with the patient. I do not think there is any evidence of progression of the underlying multiple myeloma. I will continue current treatment without any changes, i.e. Revlimid 15 mg daily 3 weeks on and 1 week off. I will have the patient come back in one month, repeat CBC, CMP, LDH, beta 2 microglobulin, SPEP with reflex IFX, serum free light chain and quantitative immunoglobulin. Patient voiced understanding. I talked with the patient that if after several months of monitoring, patient's multiple myeloma markers have been stable, we may length in the interval for follow-up to 2-3 months.
[2018-08-12 12:06] VITALS: BP 125/65; PULSE 59; RESP 15; TEMP 37.1; O2SAT 93
--- NOTE | 2018-08-12 12:06 | P.PNONC_ITS ---
PN -Subjective Interval history: Chief complaint 78-year-old female with multiple myeloma Oncological history Multiple myeloma based on multiple lytic bony lesions with a pathologically diagnosed plasmacytoma and a prior M-spike at 0.3 g/dl which disappeared after initiation of treatment but with continued abnormal kappa-lambda light chain ratio. Original bone marrow biopsy March 2014 did not demonstrate myeloma. Treated with Revlimid with some problems with cytopenias. She underwent palliative radiation to multiple sites for pain. Of note, he had righe nephrectomy 09/2008 for renal cell carcinoma, high grade papillary, with chronic renal insufficiency. She has diabetes. Interim events She is now taking Revlimid 15 mg once a day 3 weeks on 1 week off. She is not taking dexamethasone. Patient said that she feels ?good?. He denies any new events. She presents here today for scheduled follow-up. Patient underwent blood test on August 05, 2018. - Additional ROS All systems PM: reviewed and no additional remarkable complaints except as stated Home Medications and Allergies Home Medications Medication Instructions Recorded Confirmed Type gabapentin 600 mg PO TID #0 12/01/11 08/12/18 History cholecalciferol (vitamin D3) 2,000 iu PO QDAY #0 07/22/16 08/12/18 History [Vitamin D3] primidone [Mysoline] 4 tab PO QDAY #0 07/22/16 08/12/18 History propranolol 160 mg PO AMCC #0 07/22/16 08/12/18 History ipratropium bromide 2 spray INH BID #0 07/27/16 08/12/18 History lactulose 10 gm PO BID #360 ml 08/19/16 08/12/18 Rx [ZOMETA] QMONTH #0 04/12/17 History glipizide 5 mg PO AMAC #0 04/19/17 08/12/18 History lidocaine-prilocaine 1 don TOPICAL PRN PRN #30 gm 05/05/17 08/12/18 Rx multivitamin [Multiple Vitamins] 1 tab PO QDAY #0 05/12/17 08/12/18 History acetaminophen [Tylenol Extra 1,500 mg PO TID #0 10/01/17 08/12/18 History Strength] conjugated estrogens [Premarin] 0.3 mg PO HS #0 01/14/18 08/12/18 History eszopiclone 3 mg PO HS #0 01/14/18 08/12/18 History primidone [Mysoline] 100 mg PO BID #0 01/14/18 08/12/18 History propranolol 80 mg PO BID #0 01/14/18 08/12/18 History albuterol sulfate 1 puff INH QID #0 02/12/18 08/12/18 History clobetasol-emollient 0.05 pump TOPICAL Q8HP #0 02/12/18 08/12/18 History diphenoxylate-atropine 1 tab PO BID #0 02/12/18 08/12/18 History guaifenesin 600 mg PO BID #0 02/12/18 08/12/18 History ondansetron [Zofran ODT] 8 mg PO Q8HP PRN #0 02/12/18 08/12/18 History oxycodone [OxyContin] 10 mg PO Q3H PRN #0 02/12/18 08/12/18 History oxycodone [OxyContin] 20 mg PO Q3HP PRN #0 02/12/18 08/12/18 History Ketoconazole 1 don TOPICAL BID 03/30/18 08/12/18 History levothyroxine 150 mcg PO DAILY 03/30/18 08/12/18 History loperamide 2 mg PO Q2-4H PRN 03/30/18 08/12/18 History melatonin 1 mg PO BEDTIME PRN 03/30/18 08/12/18 History omeprazole 40 mg PO DAILY 03/30/18 08/12/18 History sertraline 100 mg PO DAILY 03/30/18 08/12/18 History lenalidomide [Revlimid] 15 mg PO DAILY #21 cap 04/20/18 08/12/18 Rx Allergies Allergy/AdvReac Type Severity Reaction Status Date / Time morphine Allergy Severe STROKE Verified 04/20/18 13:22 LIKE SYMPTOMS levofloxacin Allergy Intermediate HIVES Verified 04/20/18 13:22 adhesive [ADHESIVE] Allergy Mild BLISTERS Verified 04/20/18 13:22 celecoxib Allergy Mild RASH, Verified 04/20/18 13:22 SMALL BLISTERS, NAUSEA Penicillins Allergy Mild RASH Verified 04/20/18 13:22 phenazopyridine Allergy Mild VOMITING Verified 04/20/18 13:22 [From PYRIDIUM] Sulfa (Sulfonamide Allergy Mild BLISTERS Verified 04/20/18 13:22 Antibiotics) lactose [LACTOSE] Allergy Unknown Verified 04/20/18 13:22 Exam Vital signs: 3 Temp 98.7 F 08/12/18 12:06 Pulse 59 L 08/12/18 12:06 Resp 15 08/12/18 12:06 BP 125/65 08/12/18 12:06 Pulse Ox 93 08/12/18 12:06 ECOG 1 Narrative: Constitutional: Well developed, well nourished, not in any acute respiratory distress, in wheelchair. HEENT: Normocephalic atraumatic. Extraocular muscle movement intact. Pupils are round, equal and reactive to light and accommodations. Anicteric sclera. No hearing difficulty; Oral mucus membrane moist and without ulcers. Neck: Supple, symmetrical, and tracheal midline; No palpable thyromegaly and no palpable lymph nodes. Respiratory: No use of accessory muscles. Clear to auscultation, and no wheezes or rales or rubs. Cardiovascular: Regular rate and rhythm, S1 and S2 normal, no murmurs gallops or rubs. No JVD. No pitting edema of lower extremities. Abdomen: Soft, nontender, non-distended, bowel sounds normal, no palpable organomegaly, no hernia, no palpable masses. Lower extremities: No palpable pedal edema. Lymphatic: no palpable lymph nodes in the neck, axillae, or groins. Musculoskeletal: normal gait and station, no clubbing, no cyanosis, no pitting edema. Skin: no rashes, no ulcers, no petechiae Neurological: Awake and alert and oriented x3. CN II-XII grossly intact. No focal motor or sensory deficit. Psychiatric: Good judgment, good insight, normal affect, normal thought process , cooperative, no depression, no anxiety. Results - Labs 3 WBC 2.9 X10^3/uL (4.5-11.0) L 08/05/18 10:05 RBC 3.31 X10^6/uL (4.0-5.2) L 08/05/18 10:05 Hgb 10.8 g/dL (12.0-16.0) L 08/05/18 10:05 Hct 32.9 % (36-46) L 08/05/18 10:05 MCV 99.2 fL (80-100) 08/05/18 10:05 MCH 32.6 PG (26-34) 08/05/18 10:05 MCHC 32.9 % (30-36) 08/05/18 10:05 RDW 18.9 % (11.6-14.8) H 08/05/18 10:05 Plt Count 147 X10^3/uL (150-400) L 08/05/18 10:05 Neut % (Auto) 56.1 % (50-75) 08/05/18 10:05 Lymph % (Auto) 20.4 % (25-40) L 08/05/18 10:05 [place] % (Auto) 7.7 % (3-14) 08/05/18 10:05 Eos % (Auto) 14.2 % (2-4) H 08/05/18 10:05 Baso % (Auto) 1.6 % (0-2) 08/05/18 10:05 Neut # (Auto) 1600 /uL (0903-4363) L 08/05/18 10:05 Sodium 140 mmol/L (137-145) 08/05/18 10:05 Potassium 4.5 mmol/L (3.4-5.1) 08/05/18 10:05 Chloride 102 mmol/L (98-107) 08/05/18 10:05 Carbon Dioxide 30 mmol/L (22-32) 08/05/18 10:05 BUN 19 mg/dL (7-17) H 08/05/18 10:05 Creatinine 0.80 mg/dL (0.52-1.04) 08/05/18 10:05 Estimated GFR > 60.0 mL/min (>60) 08/05/18 10:05 BUN/Creatinine Ratio 23.8 (6-22) H 08/05/18 10:05 Glucose 128 mg/dL (80-110) H 08/05/18 10:05 Calcium 8.4 mg/dL (8.4-10.2) 08/05/18 10:05 Total Bilirubin 0.5 mg/dL (0.2-1.3) 08/05/18 10:05 AST 20 IU/L (14-36) 08/05/18 10:05 ALT 26 IU/L (9-52) 08/05/18 10:05 Alkaline Phosphatase 78 U/L (38-126) 08/05/18 10:05 Lactate Dehydrogenase 526 U/L (313-618) 08/05/18 10:05 Serum Total Protein 6.1 g/dL (6.1-8.1) 08/05/18 10:05 Total Protein 6.4 g/dL (6.3-8.2) 08/05/18 10:05 Albumin 3.4 g/dL (3.8-4.8) L 08/05/18 10:05 Globulin 2.7 g/dL (1.7-4.1) 08/05/18 10:05 Albumin/Globulin Ratio 1.4 (1.0-2.8) 08/05/18 10:05 Nzura-6-Orimpienm 0.4 g/dL (0.2-0.3) A 08/05/18 10:05 Ozvlx-7-Jnbqllhng 0.8 g/dL (0.5-0.9) 08/05/18 10:05 Fpqk-9-Zhvgxeeo 0.4 g/dL (0.4-0.6) 08/05/18 10:05 Qzlm-6-Joujqyxm 0.4 g/dL (0.2-0.5) 08/05/18 10:05 Trfa-0-Njvnluxaljkny 4.55 mg/L (< 2.52) H 08/05/18 10:05 Gamma Globulins 0.7 g/dL (0.8-1.7) L 08/05/18 10:05 Abnorm Protein Band 1 Not Reportable 08/05/18 10:05 Abnorm Protein Band 2 Not Reportable 08/05/18 10:05 Abn Gamma Band 3 Serum Not Reportable 08/05/18 10:05 IgG, Serum (MS) 698 mg/dL (694-1618) 08/05/18 10:05 IgA 200 mg/dL (81-463) 08/05/18 10:05 IgM 28 mg/dL (48-271) L 08/05/18 10:05 Free Bond Light Chains 283.6 mg/L (3.3-19.4) H 08/05/18 10:05 Free Lambda Light Chain 27.8 mg/L (5.7-26.3) H 08/05/18 10:05 Free Bond/Lambda Ratio 10.19 (0.26-1.65) H 08/05/18 10:05 - Imaging Additional studies: Procedures Biopsy of bone, other bones (04/23/14) Excision of lesion of other soft tissue (01/01/12) Inspection of Upper Intestinal Tract, Via Natural or Artificial Opening Endoscopic (01/30/16) Transfusion of Nonautologous Red Blood Cells into Central Vein, Percutaneous Approach (02/11/18) Assessment and Plan (1) Multiple myeloma Current visit: Yes Status: Chronic I reviewed the lab results from 08/05/2018 with the patient. I do not think there is any evidence of progression of the underlying multiple myeloma. I will continue current treatment without any changes, i.e. Revlimid 15 mg daily 3 weeks on and 1 week off. I will have the patient come back in one month, repeat CBC, CMP, LDH, beta 2 microglobulin, SPEP with reflex IFX, serum free light chain and quantitative immunoglobulin. Patient voiced understanding. I talked with the patient that if after several months of monitoring, patient's multiple myeloma markers have been stable, we may length in the interval for follow-up to 2-3 months.
--- NOTE | 2018-09-02 10:43 | ONC.SCHED ---
lEFT MESSAGE FOR PATIENT RE: HER APT. AT 10AM THIS MORNING SHE DID NOT SHOW UP.
[2018-09-09 11:56] LABS: Add Manual Diff / Slide Review NO; Basophils Percent Auto 3.6 % (0-2); Eosinophils Percent Auto 10.4 % (2-4); Hematocrit 30.4 % (36-46); Hemoglobin 10.1 g/dL (12.0-16.0); Mean Corpuscular HGB Conc 33.3 % (30-36); Mean Corpuscular Volume 102.1 fL (80-100); Monocytes Percent Auto 6.9 % (3-14); Neutrophils Absolute Auto 1500 /uL (3000-5900); Neutrophils Percent Auto 58.1 % (50-75); Platelet Count 280 X10^3/uL (150-400); Red Blood Cell Count 2.97 X10^6/uL (4.0-5.2); Red Cell Distribution Width 18.9 % (11.6-14.8); White Blood Cell Count 2.5 X10^3/uL (4.5-11.0)
[2018-09-09 12:06] LABS: Alanine Aminotransferase 34 IU/L (9-52); Albumin 3.6 g/dL (3.5-5.0); Albumin Globulin Ratio 1.2 (1.0-2.8); Alkaline Phosphatase 118 U/L (38-126); Aspartate Aminotransferase 26 IU/L (14-36); BUN Creatinine Ratio 28.6 (6-22); Bilirubin Total 0.3 mg/dL (0.2-1.3); Blood Urea Nitrogen 20 mg/dL (7-17); Carbon Dioxide 25 mmol/L (22-32); Chloride 104 mmol/L (98-107); Estimated Glomerular Filt Rate > 60.0 mL/min (>60); Globulin 2.9 g/dL (1.7-4.1); Glucose 154 mg/dL (80-110); HEMOLYSIS < 15 (0-50); Potassium 3.8 mmol/L (3.4-5.1); Sodium 140 mmol/L (137-145); Total Protein 6.5 g/dL (6.3-8.2)
[2018-09-09 12:21] LABS: Lactate Dehydrogenase 504 U/L (313-618)
[2018-09-10 13:02] LABS: Immunoglobulin A 210 mg/dL (81-463); Immunoglobulin G, Quantitative 696 mg/dL (694-1618); Immunoglobulin M, Quantitative 35 mg/dL (48-271)
[2018-09-10 14:08] LABS: Free Kappa/ Lambda Ratio 18.72 (0.26-1.65); Free Lambda 22.9 mg/L (5.7-26.3)
[2018-09-10 15:45] LABS: Beta-2-Microglobulin 5.42 mg/L (< 2.52)
[2018-09-13 23:43] LABS: Albumin 2.9 g/dL (3.8-4.8); Alpha 1 Globulin 0.4 g/dL (0.2-0.3); Alpha 2 Globulin 0.9 g/dL (0.5-0.9); Beta 1 Globulin 0.4 g/dL (0.4-0.6); Gamma Globulin 0.7 g/dL (0.8-1.7); Protein, Total 5.6 g/dL (6.1-8.1)
--- NOTE | 2018-09-23 13:16 | ONC.PN ---
PN -Subjective Interval history: 78 year-old female with multiple myeloma and renal cell carcinoma. She had been on revlimid 15 mg daily 3 weeks on and 1 week off. She is not using dexamethasone. She presented with acute onset shortness of breath on 08/13/2018. She was hospitalized at [facility] and CT scan showed sanddle pulmonry emobolism. She received lovenox and now on Eliquis 5 mg bid. After admission, she stopped taking revlimid. Today, she said her breathing is fine. She has some right sided rhomboid muscle pain. She used pain pill today. It was 10/10 today, and felt sharp and stabbing. She has nocturia and has nocturnal urinary incontinence. She thought it was urinary tract infection. Oncological history Multiple myeloma based on multiple lytic bony lesions with a pathologically diagnosed plasmacytoma and a prior M-spike at 0.3 g/dl which disappeared after initiation of treatment but with continued abnormal kappa-lambda light chain ratio. Original bone marrow biopsy March 2014 did not demonstrate myeloma. Treated with Revlimid with some problems with cytopenias. She underwent palliative radiation to multiple sites for pain. Of note, she had right nephrectomy 09/2008 for renal cell carcinoma, high grade papillary, with chronic renal insufficiency. She has diabetes. She is taking Revlimid 15 mg once a day 3 weeks on 1 week off without - Additional ROS All systems PM: reviewed and no additional remarkable complaints except as stated Home Medications and Allergies Home Medications Medication Instructions Recorded Confirmed Type gabapentin 600 mg PO TID #0 12/01/11 08/12/18 History cholecalciferol (vitamin D3) 2,000 iu PO QDAY #0 07/22/16 08/12/18 History [Vitamin D3] primidone [Mysoline] 4 tab PO QDAY #0 07/22/16 08/12/18 History propranolol 160 mg PO AMCC #0 07/22/16 08/12/18 History ipratropium bromide 2 spray INH BID #0 07/27/16 08/12/18 History lactulose 10 gm PO BID #360 ml 08/19/16 08/12/18 Rx [ZOMETA] QMONTH #0 04/12/17 History glipizide 5 mg PO AMAC #0 04/19/17 08/12/18 History lidocaine-prilocaine 1 don TOPICAL PRN PRN #30 gm 07/12/17 10/19/18 Rx multivitamin [Multiple Vitamins] 1 tab PO QDAY #0 05/12/17 08/12/18 History acetaminophen [Tylenol Extra 1,500 mg PO TID #0 10/01/17 08/12/18 History Strength] conjugated estrogens [Premarin] 0.3 mg PO HS #0 01/14/18 08/12/18 History eszopiclone 3 mg PO HS #0 01/14/18 08/12/18 History primidone [Mysoline] 100 mg PO BID #0 01/14/18 08/12/18 History propranolol 80 mg PO BID #0 01/14/18 08/12/18 History albuterol sulfate 1 puff INH QID #0 02/12/18 08/12/18 History clobetasol-emollient 0.05 pump TOPICAL Q8HP #0 02/12/18 08/12/18 History diphenoxylate-atropine 1 tab PO BID #0 02/12/18 08/12/18 History guaifenesin 600 mg PO BID #0 02/12/18 08/12/18 History ondansetron [Zofran ODT] 8 mg PO Q8HP PRN #0 02/12/18 08/12/18 History oxycodone [OxyContin] 10 mg PO Q3H PRN #0 02/12/18 08/12/18 History oxycodone [OxyContin] 20 mg PO Q3HP PRN #0 02/12/18 08/12/18 History Ketoconazole 1 don TOPICAL BID 03/30/18 08/12/18 History levothyroxine 150 mcg PO DAILY 03/30/18 08/12/18 History loperamide 2 mg PO Q2-4H PRN 03/30/18 08/12/18 History melatonin 1 mg PO BEDTIME PRN 03/30/18 08/12/18 History omeprazole 40 mg PO DAILY 03/30/18 08/12/18 History sertraline 100 mg PO DAILY 03/30/18 08/12/18 History lenalidomide [Revlimid] 15 mg PO DAILY #21 cap 04/20/18 08/12/18 Rx apixaban 5 mg PO DAILY 09/23/18 09/23/18 History Allergies Allergy/AdvReac Type Severity Reaction Status Date / Time morphine Allergy Severe STROKE Verified 04/20/18 13:22 LIKE SYMPTOMS levofloxacin Allergy Intermediate HIVES Verified 04/20/18 13:22 adhesive [ADHESIVE] Allergy Mild BLISTERS Verified 04/20/18 13:22 celecoxib Allergy Mild RASH, Verified 04/20/18 13:22 SMALL BLISTERS, NAUSEA Penicillins Allergy Mild RASH Verified 04/20/18 13:22 phenazopyridine Allergy Mild VOMITING Verified 04/20/18 13:22 [From PYRIDIUM] Sulfa (Sulfonamide Allergy Mild BLISTERS Verified 04/20/18 13:22 Antibiotics) lactose [LACTOSE] Allergy Unknown Verified 04/20/18 13:22 Exam Vital signs: Last Vital Signs Temp 97.6 F 09/23/18 13:22 Pulse 61 09/23/18 13:22 Resp 20 09/23/18 13:22 BP 136/68 09/23/18 13:22 Pulse Ox 94 09/23/18 13:22 ECOG 1 Narrative: Constitutional: Well developed, well nourished, not in any acute respiratory distress, in wheelchair. HEENT: Normocephalic atraumatic. Extraocular muscle movement intact. Pupils are round, equal and reactive to light and accommodations. Anicteric sclera. No hearing difficulty; Oral mucus membrane moist and without ulcers. Neck: Supple, symmetrical, and tracheal midline; No palpable thyromegaly and no palpable lymph nodes. Respiratory: No use of accessory muscles. Clear to auscultation, and no wheezes or rales or rubs. Cardiovascular: Regular rate and rhythm, S1 and S2 normal, no murmurs gallops or rubs. No JVD. Abdomen: Soft, nontender, non-distended, bowel sounds normal, no palpable organomegaly, no hernia, no palpable masses. Lower extremities: No palpable pedal edema. But left side is slightly bigger than the right side. Lymphatic: no palpable lymph nodes in the neck, axillae, or groins. Musculoskeletal: normal gait and station, no clubbing, no cyanosis, no pitting edema. Skin: no rashes, no ulcers, no petechiae Neurological: Awake and alert and oriented x3. CN II-XII grossly intact. No focal motor or sensory deficit. Psychiatric: Good judgment, good insight, normal affect, normal thought process, cooperative, no depression, no anxiety. Results - Labs Laboratory Last Values WBC 2.5 X10^3/uL (4.5-11.0) L 09/09/18 11:18 RBC 2.97 X10^6/uL (4.0-5.2) L 09/09/18 11:18 Hgb 10.1 g/dL (12.0-16.0) L 09/09/18 11:18 Hct 30.4 % (36-46) L 09/09/18 11:18 MCV 102.1 fL (80-100) H 09/09/18 11:18 MCH 34.0 PG (26-34) 09/09/18 11:18 MCHC 33.3 % (30-36) 09/09/18 11:18 RDW 18.9 % (11.6-14.8) H 09/09/18 11:18 Plt Count 280 X10^3/uL (150-400) 09/09/18 11:18 Neut % (Auto) 58.1 % (50-75) 09/09/18 11:18 Lymph % (Auto) 21.0 % (25-40) L 09/09/18 11:18 Dick[place] % (Auto) 6.9 % (3-14) 09/09/18 11:18 Eos % (Auto) 10.4 % (2-4) H 09/09/18 11:18 Baso % (Auto) 3.6 % (0-2) H 09/09/18 11:18 Neut # (Auto) 1500 /uL (8989-4756) L 09/09/18 11:18 Total Counted 50 07/07/18 11:12 Seg Neutrophils % 52.0 % (38-70) 07/07/18 11:12 Lymphocytes % (Manual) 22.0 % (25-45) L 07/07/18 11:12 Monocytes % (Manual) 2.0 % (2-11) 07/07/18 11:12 Eosinophils % (Manual) 22.0 % (2-4) H 07/07/18 11:12 Basophils % (Manual) 2.0 % (0-1) H 07/07/18 11:12 Neutrophils # (Manual) 1664 /uL (9765-8420) L 07/07/18 11:12 RBC Morphology Not Reportable 07/07/18 11:12 Anisocytosis 1+ H 07/07/18 11:12 Sodium 140 mmol/L (137-145) 09/09/18 11:18 Potassium 3.8 mmol/L (3.4-5.1) 09/09/18 11:18 Chloride 104 mmol/L (98-107) 09/09/18 11:18 Carbon Dioxide 25 mmol/L (22-32) 09/09/18 11:18 BUN 20 mg/dL (7-17) H 09/09/18 11:18 Creatinine 0.70 mg/dL (0.52-1.04) 09/09/18 11:18 Estimated GFR > 60.0 mL/min (>60) 09/09/18 11:18 BUN/Creatinine Ratio 28.6 (6-22) H 09/09/18 11:18 Glucose 154 mg/dL (80-110) H 09/09/18 11:18 Calcium 9.0 mg/dL (8.4-10.2) 09/09/18 11:18 Total Bilirubin 0.3 mg/dL (0.2-1.3) 09/09/18 11:18 AST 26 IU/L (14-36) 09/09/18 11:18 ALT 34 IU/L (9-52) 09/09/18 11:18 Alkaline Phosphatase 118 U/L (38-126) 09/09/18 11:18 Lactate Dehydrogenase 504 U/L (313-618) 09/09/18 11:18 Serum Total Protein 5.6 g/dL (6.1-8.1) L 09/09/18 11:18 Total Protein 6.5 g/dL (6.3-8.2) 09/09/18 11:18 Albumin 2.9 g/dL (3.8-4.8) L 09/09/18 11:18 Globulin 2.9 g/dL (1.7-4.1) 09/09/18 11:18 Albumin/Globulin Ratio 1.2 (1.0-2.8) 09/09/18 11:18 Bkmvx-8-Dxjvqyfpl 0.4 g/dL (0.2-0.3) H 09/09/18 11:18 Asogo-9-Zzioeutxn 0.9 g/dL (0.5-0.9) 09/09/18 11:18 Fyds-8-Ahvyorvn 0.4 g/dL (0.4-0.6) 09/09/18 11:18 Wpxi-7-Bdkyvamh 0.3 g/dL (0.2-0.5) 09/09/18 11:18 Ujuj-2-Tltqrctzubrbc 5.42 mg/L (< 2.52) H 09/09/18 11:18 Gamma Globulins 0.7 g/dL (0.8-1.7) L 09/09/18 11:18 Abnorm Protein Band 1 Not Reportable 09/09/18 11:18 Abnorm Protein Band 2 Not Reportable 09/09/18 11:18 Abn Gamma Band 3 Serum Not Reportable 09/09/18 11:18 PEP Comment See note 09/09/18 11:18 IgG, Serum (MS) 696 mg/dL (694-1618) 09/09/18 11:18 IgA 210 mg/dL (81-463) 09/09/18 11:18 IgM 35 mg/dL (48-271) L 09/09/18 11:18 DANDRE & SPEP Interp See note 09/09/18 11:18 Free [place] Light Chains 429.0 mg/L (3.3-19.4) H 09/09/18 11:18 Free Lambda Light Chain 22.9 mg/L (5.7-26.3) 09/09/18 11:18 Free [place]/Lambda Ratio 18.72 (0.26-1.65) H 09/09/18 11:18 - Imaging Additional studies: Procedures Biopsy of bone, other bones (04/23/14) Excision of lesion of other soft tissue (01/01/12) Inspection of Upper Intestinal Tract, Via Natural or Artificial Opening Endoscopic (01/30/16) Transfusion of Nonautologous Red Blood Cells into Central Vein, Percutaneous Approach (02/11/18) Assessment and Plan (1) Multiple myeloma Assessment Her serum free kappa light chain 429, Given the recent event of pulmonary embolism, she has been off treatment with Revlimid since 08/24/2018. The laboratory tests were performed on 09/09/2018. The serum free light chain ratio has significantly increased. In my opinion, this short time-off of Revlimid probably cannot explain the significantly elevated serum free kappa light chain. I was concerned about possible refractory evolution of her underlying multiple myeloma. I discussed with the patient that we need to repeat a bone marrow aspiration biopsy and a more complete staging including a PET CT. For the time being, I will continue to hold off on treatment with Revlimid. Of note Revlimid is also known to increase the risk of venous thromboembolism. Plan: 1. Continue to hold Revlimid 2. PET/CT 3. BMA/Bx 4. Left leg duplex 5. Continue Eliquis 5 mg bid 6. RTC in 3 weeks (2) Pulmonary embolus Assessment and plan: The etiology of her pulmonary embolism probably is multifactorial. The use of the Revlimid definitely is one of those factors. In addition patient has history of remote renal cell carcinoma. We know that renal cell carcinoma can recur even decades later. It is of some concern. I think the PET-CT I mentioned above will help us determine if there is any any evidence of recurrence or metastasis. Patient will need continue to take Eliquis. The source of the emboli is not clear at this moment. Patient said that she has not had lower extremity duplex. On my physical examination, her left leg slightly bigger compared to the right side. I will proceed with the duplex study of the left leg as I mentioned above. (3) History of renal cell carcinoma Assessment and plan: Patient has a remote history of right renal cell carcinoma status post right radical nephrectomy. The current occurrence of pulmonary embolism raises the possibility that there may be recurrence of her known renal cell carcinoma. I will follow up on the PET-CT.
--- NOTE | 2018-09-23 13:21 | P.PNONC_ITS ---
PN -Subjective Interval history: 78 year-old female with multiple myeloma and renal cell carcinoma. She had been on revlimid 15 mg daily 3 weeks on and 1 week off. She is not using dexamethasone. She presented with acute onset shortness of breath on 2017. She was hospitalized at [facility] and CT scan showed sanddle pulmonry emobolism. She received lovenox and now on Eliquis 5 mg bid. After admission, she stopped taking revlimid. Today, she said her breathing is fine. She has some right sided rhomboid muscle pain. She used pain pill today. It was 10/10 today, and felt sharp and stabbing. She has nocturia and has nocturnal urinary incontinence. She thought it was urinary tract infection. Oncological history Multiple myeloma based on multiple lytic bony lesions with a pathologically diagnosed plasmacytoma and a prior M-spike at 0.3 g/dl which disappeared after initiation of treatment but with continued abnormal kappa-lambda light chain ratio. Original bone marrow biopsy March 2014 did not demonstrate myeloma. Treated with Revlimid with some problems with cytopenias. She underwent palliative radiation to multiple sites for pain. Of note, she had right nephrectomy 09/2008 for renal cell carcinoma, high grade papillary, with chronic renal insufficiency. She has diabetes. She is taking Revlimid 15 mg once a day 3 weeks on 1 week off without - Additional ROS All systems PM: reviewed and no additional remarkable complaints except as stated Home Medications and Allergies Home Medications Medication Instructions Recorded Confirmed Type gabapentin 600 mg PO TID #0 12/01/11 08/12/18 History cholecalciferol (vitamin D3) 2,000 iu PO QDAY #0 07/22/16 08/12/18 History [Vitamin D3] primidone [Mysoline] 4 tab PO QDAY #0 07/22/16 08/12/18 History propranolol 160 mg PO AMCC #0 07/22/16 08/12/18 History ipratropium bromide 2 spray INH BID #0 07/27/16 08/12/18 History lactulose 10 gm PO BID #360 ml 08/19/16 08/12/18 Rx [ZOMETA] QMONTH #0 04/12/17 History glipizide 5 mg PO AMAC #0 04/19/17 08/12/18 History lidocaine-prilocaine 1 don TOPICAL PRN PRN #30 gm 07/12/17 10/19/18 Rx multivitamin [Multiple Vitamins] 1 tab PO QDAY #0 05/12/17 08/12/18 History acetaminophen [Tylenol Extra 1,500 mg PO TID #0 10/01/17 08/12/18 History Strength] conjugated estrogens [Premarin] 0.3 mg PO HS #0 01/14/18 08/12/18 History eszopiclone 3 mg PO HS #0 01/14/18 08/12/18 History primidone [Mysoline] 100 mg PO BID #0 01/14/18 08/12/18 History propranolol 80 mg PO BID #0 01/14/18 08/12/18 History albuterol sulfate 1 puff INH QID #0 02/12/18 08/12/18 History clobetasol-emollient 0.05 pump TOPICAL Q8HP #0 02/12/18 08/12/18 History diphenoxylate-atropine 1 tab PO BID #0 02/12/18 08/12/18 History guaifenesin 600 mg PO BID #0 02/12/18 08/12/18 History ondansetron [Zofran ODT] 8 mg PO Q8HP PRN #0 02/12/18 08/12/18 History oxycodone [OxyContin] 10 mg PO Q3H PRN #0 02/12/18 08/12/18 History oxycodone [OxyContin] 20 mg PO Q3HP PRN #0 02/12/18 08/12/18 History Ketoconazole 1 don TOPICAL BID 03/30/18 08/12/18 History levothyroxine 150 mcg PO DAILY 03/30/18 08/12/18 History loperamide 2 mg PO Q2-4H PRN 03/30/18 08/12/18 History melatonin 1 mg PO BEDTIME PRN 03/30/18 08/12/18 History omeprazole 40 mg PO DAILY 03/30/18 08/12/18 History sertraline 100 mg PO DAILY 03/30/18 08/12/18 History lenalidomide [Revlimid] 15 mg PO DAILY #21 cap 04/20/18 08/12/18 Rx apixaban 5 mg PO DAILY 09/23/18 09/23/18 History Allergies Allergy/AdvReac Type Severity Reaction Status Date / Time morphine Allergy Severe STROKE Verified 04/20/18 13:22 LIKE SYMPTOMS levofloxacin Allergy Intermediate HIVES Verified 04/20/18 13:22 adhesive [ADHESIVE] Allergy Mild BLISTERS Verified 04/20/18 13:22 celecoxib Allergy Mild RASH, Verified 04/20/18 13:22 SMALL BLISTERS, NAUSEA Penicillins Allergy Mild RASH Verified 04/20/18 13:22 phenazopyridine Allergy Mild VOMITING Verified 04/20/18 13:22 [From PYRIDIUM] Sulfa (Sulfonamide Allergy Mild BLISTERS Verified 04/20/18 13:22 Antibiotics) lactose [LACTOSE] Allergy Unknown Verified 04/20/18 13:22 Exam Vital signs: Last Vital Signs Temp 97.6 F 09/23/18 13:22 Pulse 61 09/23/18 13:22 Resp 20 09/23/18 13:22 BP 136/68 09/23/18 13:22 Pulse Ox 94 09/23/18 13:22 ECOG 1 Narrative: Constitutional: Well developed, well nourished, not in any acute respiratory distress, in wheelchair. HEENT: Normocephalic atraumatic. Extraocular muscle movement intact. Pupils are round, equal and reactive to light and accommodations. Anicteric sclera. No hearing difficulty; Oral mucus membrane moist and without ulcers. Neck: Supple, symmetrical, and tracheal midline; No palpable thyromegaly and no palpable lymph nodes. Respiratory: No use of accessory muscles. Clear to auscultation, and no wheezes or rales or rubs. Cardiovascular: Regular rate and rhythm, S1 and S2 normal, no murmurs gallops or rubs. No JVD. Abdomen: Soft, nontender, non-distended, bowel sounds normal, no palpable organomegaly, no hernia, no palpable masses. Lower extremities: No palpable pedal edema. But left side is slightly bigger than the right side. Lymphatic: no palpable lymph nodes in the neck, axillae, or groins. Musculoskeletal: normal gait and station, no clubbing, no cyanosis, no pitting edema. Skin: no rashes, no ulcers, no petechiae Neurological: Awake and alert and oriented x3. CN II-XII grossly intact. No focal motor or sensory deficit. Psychiatric: Good judgment, good insight, normal affect, normal thought process , cooperative, no depression, no anxiety. Results - Labs Laboratory Last Values WBC 2.5 X10^3/uL (4.5-11.0) L 09/09/18 11:18 RBC 2.97 X10^6/uL (4.0-5.2) L 09/09/18 11:18 Hgb 10.1 g/dL (12.0-16.0) L 09/09/18 11:18 Hct 30.4 % (36-46) L 09/09/18 11:18 MCV 102.1 fL (80-100) H 09/09/18 11:18 MCH 34.0 PG (26-34) 09/09/18 11:18 MCHC 33.3 % (30-36) 09/09/18 11:18 RDW 18.9 % (11.6-14.8) H 09/09/18 11:18 Plt Count 280 X10^3/uL (150-400) 09/09/18 11:18 Neut % (Auto) 58.1 % (50-75) 09/09/18 11:18 Lymph % (Auto) 21.0 % (25-40) L 09/09/18 11:18 [place] % (Auto) 6.9 % (3-14) 09/09/18 11:18 Eos % (Auto) 10.4 % (2-4) H 09/09/18 11:18 Baso % (Auto) 3.6 % (0-2) H 09/09/18 11:18 Neut # (Auto) 1500 /uL (6686-0201) L 09/09/18 11:18 Total Counted 50 07/07/18 11:12 Seg Neutrophils % 52.0 % (38-70) 07/07/18 11:12 Lymphocytes % (Manual) 22.0 % (25-45) L 07/07/18 11:12 Monocytes % (Manual) 2.0 % (2-11) 07/07/18 11:12 Eosinophils % (Manual) 22.0 % (2-4) H 07/07/18 11:12 Basophils % (Manual) 2.0 % (0-1) H 07/07/18 11:12 Neutrophils # (Manual) 1664 /uL (4446-5806) L 07/07/18 11:12 RBC Morphology Not Reportable 07/07/18 11:12 Anisocytosis 1+ H 07/07/18 11:12 Sodium 140 mmol/L (137-145) 09/09/18 11:18 Potassium 3.8 mmol/L (3.4-5.1) 09/09/18 11:18 Chloride 104 mmol/L (98-107) 09/09/18 11:18 Carbon Dioxide 25 mmol/L (22-32) 09/09/18 11:18 BUN 20 mg/dL (7-17) H 09/09/18 11:18 Creatinine 0.70 mg/dL (0.52-1.04) 09/09/18 11:18 Estimated GFR > 60.0 mL/min (>60) 09/09/18 11:18 BUN/Creatinine Ratio 28.6 (6-22) H 09/09/18 11:18 Glucose 154 mg/dL (80-110) H 09/09/18 11:18 Calcium 9.0 mg/dL (8.4-10.2) 09/09/18 11:18 Total Bilirubin 0.3 mg/dL (0.2-1.3) 09/09/18 11:18 AST 26 IU/L (14-36) 09/09/18 11:18 ALT 34 IU/L (9-52) 09/09/18 11:18 Alkaline Phosphatase 118 U/L (38-126) 09/09/18 11:18 Lactate Dehydrogenase 504 U/L (313-618) 09/09/18 11:18 Serum Total Protein 5.6 g/dL (6.1-8.1) L 09/09/18 11:18 Total Protein 6.5 g/dL (6.3-8.2) 09/09/18 11:18 Albumin 2.9 g/dL (3.8-4.8) L 09/09/18 11:18 Globulin 2.9 g/dL (1.7-4.1) 09/09/18 11:18 Albumin/Globulin Ratio 1.2 (1.0-2.8) 09/09/18 11:18 Btcgs-4-Mnxipjexe 0.4 g/dL (0.2-0.3) H 09/09/18 11:18 Jnozj-6-Gtcuddoio 0.9 g/dL (0.5-0.9) 09/09/18 11:18 Ljbw-2-Kxczhilw 0.4 g/dL (0.4-0.6) 09/09/18 11:18 Hdvc-2-Nixcdbri 0.3 g/dL (0.2-0.5) 09/09/18 11:18 Qikv-2-Zblyuoyvrzvuc 5.42 mg/L (< 2.52) H 09/09/18 11:18 Gamma Globulins 0.7 g/dL (0.8-1.7) L 09/09/18 11:18 Abnorm Protein Band 1 Not Reportable 09/09/18 11:18 Abnorm Protein Band 2 Not Reportable 09/09/18 11:18 Abn Gamma Band 3 Serum Not Reportable 09/09/18 11:18 PEP Comment See note 09/09/18 11:18 IgG, Serum (MS) 696 mg/dL (694-1618) 09/09/18 11:18 IgA 210 mg/dL (81-463) 09/09/18 11:18 IgM 35 mg/dL (48-271) L 09/09/18 11:18 DANDRE & SPEP Interp See note 09/09/18 11:18 Free [place] Light Chains 429.0 mg/L (3.3-19.4) H 09/09/18 11:18 Free Lambda Light Chain 22.9 mg/L (5.7-26.3) 09/09/18 11:18 Free [place]/Lambda Ratio 18.72 (0.26-1.65) H 09/09/18 11:18 - Imaging Additional studies: Procedures Biopsy of bone, other bones (04/23/14) Excision of lesion of other soft tissue (01/01/12) Inspection of Upper Intestinal Tract, Via Natural or Artificial Opening Endoscopic (01/30/16) Transfusion of Nonautologous Red Blood Cells into Central Vein, Percutaneous Approach (02/11/18) Assessment and Plan (1) Multiple myeloma Assessment Her serum free kappa light chain 429, Given the recent event of pulmonary embolism, she has been off treatment with Revlimid since 08/24/2018. The laboratory tests were performed on 09/09/2018. The serum free light chain ratio has significantly increased. In my opinion, this short time-off of Revlimid probably cannot explain the significantly elevated serum free kappa light chain. I was concerned about possible refractory evolution of her underlying multiple myeloma. I discussed with the patient that we need to repeat a bone marrow aspiration biopsy and a more complete staging including a PET CT. For the time being, I will continue to hold off on treatment with Revlimid. Of note Revlimid is also known to increase the risk of venous thromboembolism. Plan: 1. Continue to hold Revlimid 2. PET/CT 3. BMA/Bx 4. Left leg duplex 5. Continue Eliquis 5 mg bid 6. RTC in 3 weeks (2) Pulmonary embolus Assessment and plan: The etiology of her pulmonary embolism probably is multifactorial. The use of the Revlimid definitely is one of those factors. In addition patient has history of remote renal cell carcinoma. We know that renal cell carcinoma can recur even decades later. It is of some concern. I think the PET-CT I mentioned above will help us determine if there is any any evidence of recurrence or metastasis. Patient will need continue to take Eliquis. The source of the emboli is not clear at this moment. Patient said that she has not had lower extremity duplex. On my physical examination, her left leg slightly bigger compared to the right side. I will proceed with the duplex study of the left leg as I mentioned above. (3) History of renal cell carcinoma Assessment and plan: Patient has a remote history of right renal cell carcinoma status post right radical nephrectomy. The current occurrence of pulmonary embolism raises the possibility that there may be recurrence of her known renal cell carcinoma. I will follow up on the PET-CT.
[2018-09-23 13:22] VITALS: BP 136/68; PULSE 61; RESP 20; TEMP 36.4; O2SAT 94
--- NOTE | 2018-09-29 | PATH_ITS ---
[facility] Accession Number: [id number] . 01 Material submitted: . PART A: BONE MARROW CORE PART B: BONE MARROW ASPIRATE . 01 Clinical history: . BONE MARROW BIOPSY AND ASPIRATION/ RIGHT HIP MULTIPLE MYELOMA . 01 Diagnosis: BONE MARROW, CORE BIOPSY, ASPIRATE, AND CLOT SECTIONS: . 1. Mildly hypercellular marrow for age (estimated 50% cellularity) with involvement by a kappa-restricted plasma cell neoplasm (see Comments) . 2. Adequate trilineage hematopoiesis with relative erythroid hyperplasia and no significant morphologic dysplasia . . PERIPHERAL BLOOD: 1. Borderline/mild absolute neutropenia 2. Erythrocyte macrocytosis . FLOW CYTOMETRIC ANALYSIS ([id number]): Bone marrow, aspirate: 1. No abnormal plasma cell population identified (see Flow Comments) 2. No abnormal B-cell or T-cell population identified 3. No abnormal blast or myeloid cell population identified . 10/05/2018 . 01 Comment: The bone marrow sampled in this case is involved by an abnormal plasma cell population that exhibits a patchy distribution in the marrow, predominantly forming confluent moderately-sized aggregates/sheets of abnormal plasma cells that are scattered through the marrow. Five (5) atypical plasma cell aggregates are identified, collectively, on the H/E tissue levels of the clot section in blocks B1, B2, B4, and B5; however, no discrete atypical plasma cell aggregates are seen in the core biopsy. By immunohistochemistry, the abnormal plasma cells comprise an estimated 10-15% of the total marrow cellularity, and they are kappa light chain restricted with aberrant coexpression of CD56. In the background, there is an additional plasma cell subset that appears polytypic, which is relatively evenly-distributed in the marrow, and comprises an additional 2-3% of the total marrow cells. Overall, these findings indicate persistent or recurrent marrow involvement by the patient's previously-characterized kappa-restricted plasma cell neoplasm. . Note that the absence of an identifiable abnormal plasma cell population by flow cytometry on the marrow aspirate ([id number]) is likely due to the patchy nature of marrow involvement by the abnormal plasma cell infiltrate. . Routine cytogenetic karyotyping and a prognostic multiple myeloma FISH panel, which will be performed on a plasma cell-enriched sample of the marrow aspirate, are currently pending and will be reported separately in [id number] when complete. . FLOW CYTOMETRY COMMENTS: . There is no immunophenotypic evidence of a myeloid stem cell neoplasm, non-Hodgkin lymphoma, or a plasma cell neoplasm. However, flow cytometric evaluation typically underestimates the volume of plasma cells present, and a low-grade myelodysplastic syndrome or chronic-phase myeloproliferative neoplasm cannot be entirely excluded by flow cytometry. Therefore, correlation of these findings with the bone marrow morphology, routine cytogenetic karyotyping, and other clinical and laboratory findings is recommended. Note that complete Hematopathology evaluation of the concurrently submitted marrow specimen will be reported separately in [id number]. . Flow cytometric analysis after lysis of the erythroid elements indicates that the viable leukocytes include 16.6% lymphocytes, 6.5% monocytes, 69% granulocytes, 0.9% CD34+ myeloid blasts, 1.7% normal B-cell precursors/hematogones, and 0.3% plasma cells. The lymphocytes include 2.6% B-cells, 84% T-cells, and 8.5% NK-cells. The mature B-cells have a normal kappa:lambda ratio of 1.6. The T-cells have a mildly reversed CD4:CD8 ratio of 0.8, with an otherwise normal phenotype. The plasma cells have a normal cytoplasmic kappa:lambda ratio of 2.0. The granulocytes exhibit normal expression of CD10, CD11b, CD13, CD16 and CD15; the monocytes exhibit normal expression of CD13, CD14, CD33 and CD64; and the CD34+ myeloid blasts have no significant immunophenotypic abnormalities. . 01 Electronically signed: . Liliana Stephens MD, Pathologist NPI- [id number] . 01 Gross description: . Received two formalin-filled containers both labeled with the patient's name. No sources are labeled on containers. . A. In a container arbitrarily designated A is a 0.2 cm in diameter x 0.5 cm length possible portion of core and clotted blood. Entirely submitted in cassette A. Will be placed in decal for softening. B. In a container arbitrarily designated B are multiple fragments of clotted blood, which aggregate to 5.0 x 5.0 x 2.0 cm. The specimen is filtered and entirely submitted in cassette B1 through B6. ([facility]:[id number]) /[facility] . 01 Microscopic: . CORE BIOPSY AND CLOT SECTIONS: . H/E-stained sections of the bone marrow core biopsy (block A1) reveal a mildly to moderately fragmented core of trabecular bone and marrow with associated clot. The marrow in the core biopsy is comprised of trilineage elements, with no obvious atypical plasma cell infiltrate or atypical lymphoid aggregates on the H/E. H/E-stained sections of the clot in blocks B1, B2, B4, and B5 reveal scattered fragments of blood clot and cellular marrow particles that include trilineage elements and five (5) distinct, moderately-sized confluent abnormal plasma cell aggregates/sheets that are identified among these four blocks. A large subset of the plasma cells in these abnormal aggregates exhibit large cytoplasmic Demetrius bodies that impart a signet ring-like morphology to the cells. H/E-stained sections of the clot in blocks B3 and B6 reveal scattered fragments of blood clot and cellular marrow with predominantly trilineage elements. A very tiny, well-circumscribed collection of small mature-appearing lymphocytes is also seen focally in clot section block B2, which is favored to be reactive. Taking the core biopsy and all of the clot section blocks into account, the marrow appears mildly hypercellular for age, estimated at 50% cellularity. The areas of trilineage hematopoiesis exhibit relative erythroid hyperplasia. Megakaryocytes appear present in relatively normal numbers, and form rare small, loose clusters. There is no evidence of an expanded blast or immature cell population. . ASPIRATE SMEARS: . Two of the 12 Torres-stained aspirate smears are pauciparticulate and cellular; however, scattered hematopoietic cells are also visible on the remaining aparticulate smears. Plasma cells are present in elevated numbers, and include moderately-enlarged forms and occasional bi- or tri-nucleated forms. Lymphocytes are present in normal numbers, and have no significant cytologic atypia. Megakaryocytes are normal in number. A few dysplastic megakaryocytes with hypolobate nuclei are identified; however, these are estimated to comprise fewer than 10% of the total megakaryocytes present. Erythroid precursors are present in increased proportion to the myeloid precursors, although both lineages display complete maturation without significant dysplastic or megaloblastoid features. There is no obvious increase in histiocytes or mast cells. A differential count of 500 marrow hematopoietic cells reveals 31.8% myeloid precursors, 52.8% erythroid precursors, 6.2% lymphocytes, and 9.2% plasma cells. . SPECIAL STAINS: . A reticulin stain performed on the biopsy (A1) suggests mild patchy reticulin fibrosis (WHO fibrosis grade 0-1+ out of 3). An iron stain performed on a particulate aspirate smear suggests a decreased amount of stainable marrow storage iron is present. No ring sideroblasts are identified. . IMMUNOHISTOCHEMISTRY*: . Select immunohistochemical studies were performed on the B5 clot section, with appropriate positive and negative controls, to help enumerate the cell lineages and evaluate the abnormal plasma cells. . The abnormal plasma cell aggregates are uniformly positive for CD138, with uniform coexpression of CD56 (with strong intensity). The abnormal plasma cells in the aggregates are also kappa light chain restricted based on kappa and lambda light chain immunostains. In addition, a subset of background plasma cells more evenly-distributed throughout the marrow appear polytypic, with a kappa:lambda ratio estimated at 1-2:1. These background polytypic plasma cells comprise about 2-3% of the total marrow cells. Taking into account the CD138 immunostain performed on block B5, and the volume of additional abnormal plasma cell aggregates seen in total among the clot sections (B1-B6), the abnormal plasma cells are estimated to comprise 10-15% of the total marrow cellularity. . CD15+ myelomonocytic precursors and CD71+ erythroid precursors comprise about 30% and 50% of the marrow cells, respectively. An immunostain for vWF highlights the megakaryocytes, including one small loose megakaryocyte cluster in block B5. . PERIPHERAL BLOOD: . A Torres-stained peripheral blood smear reveals the leukocytes to be at least mildly decreased in number, and a differential count of 300 cells reveals 57.3% neutrophils, 31% lymphocytes, 8.3% monocytes, 2.7% eosinophils, and 0.7% basophils. The vast majority of circulating neutrophils have appropriate nuclear segmentation and cytoplasmic granularity. Only rare hypersegmented neutrophils are seen. Per the CBC indices, the erythrocytes are low-normal in number and volume, and macrocytic. There is minimal polychromasia and no significant erythrocyte poikilocytosis. Platelets are normal in number and generally well-granulated. A few small platelet clusters are seen. . * Technical note: These tests and their performance characteristics have been determined by [facility]. They have not been cleared or approved by the U.S. Food and Drug Administration. The FDA has determined that such clearance or approval is not necessary. These tests are used for clinical purposes, and should not be regarded as investigational or for research. . . 01 Pathologist provided ICD-10: C90.00, D75.89 . 01 CPT . 424825, 146799, 791376, 961798, 769629, 392302, 672062, Z42935, F15201 Performed at: 01 [facility] [address] [place] [address], [place], [place] [id number] MD Naveed Loving MD Phone: [phone]
--- NOTE | 2018-09-29 13:38 | P.PNONC_ITS ---
PN -Subjective Interval history: 78 year-old female with multiple myeloma and renal cell carcinoma. She had been on revlimid 15 mg daily 3 weeks on and 1 week off. She is not using dexamethasone. She presented with acute onset shortness of breath on 2017. She was hospitalized at [facility] and CT scan showed sanddle pulmonry emobolism. She received lovenox and now on Eliquis 5 mg bid. After admission, she stopped taking revlimid. Today, she said her breathing is fine. She has some right sided rhomboid muscle pain. She used pain pill today. It was 10/10 today, and felt sharp and stabbing. She has nocturia and has nocturnal urinary incontinence. She thought it was urinary tract infection. Oncological history Multiple myeloma based on multiple lytic bony lesions with a pathologically diagnosed plasmacytoma and a prior M-spike at 0.3 g/dl which disappeared after initiation of treatment but with continued abnormal kappa-lambda light chain ratio. Original bone marrow biopsy March 2014 did not demonstrate myeloma. Treated with Revlimid with some problems with cytopenias. She underwent palliative radiation to multiple sites for pain. Of note, she had right nephrectomy 09/2008 for renal cell carcinoma, high grade papillary, with chronic renal insufficiency. She has diabetes. She is taking Revlimid 15 mg once a day 3 weeks on 1 week off without Home Medications and Allergies Home Medications Medication Instructions Recorded Confirmed Type gabapentin 600 mg PO TID #0 12/01/11 08/12/18 History cholecalciferol (vitamin D3) 2,000 iu PO QDAY #0 07/22/16 08/12/18 History [Vitamin D3] primidone [Mysoline] 4 tab PO QDAY #0 07/22/16 08/12/18 History propranolol 160 mg PO [facility] #0 07/22/16 08/12/18 History ipratropium bromide 2 spray INH BID #0 07/27/16 08/12/18 History lactulose 10 gm PO BID #360 ml 08/19/16 08/12/18 Rx [ZOMETA] QMONTH #0 04/12/17 History glipizide 5 mg PO AMAC #0 04/19/17 08/12/18 History lidocaine-prilocaine 1 don TOPICAL PRN PRN #30 gm 05/05/17 08/12/18 Rx multivitamin [Multiple Vitamins] 1 tab PO QDAY #0 05/12/17 08/12/18 History acetaminophen [Tylenol Extra 1,500 mg PO TID #0 10/01/17 08/12/18 History Strength] conjugated estrogens [Premarin] 0.3 mg PO HS #0 01/14/18 08/12/18 History eszopiclone 3 mg PO HS #0 01/14/18 08/12/18 History primidone [Mysoline] 100 mg PO BID #0 01/14/18 08/12/18 History propranolol 80 mg PO BID #0 01/14/18 08/12/18 History albuterol sulfate 1 puff INH QID #0 02/12/18 08/12/18 History clobetasol-emollient 0.05 pump TOPICAL Q8HP #0 02/12/18 08/12/18 History diphenoxylate-atropine 1 tab PO BID #0 02/12/18 08/12/18 History guaifenesin 600 mg PO BID #0 02/12/18 08/12/18 History ondansetron [Zofran ODT] 8 mg PO Q8HP PRN #0 02/12/18 08/12/18 History oxycodone [OxyContin] 10 mg PO Q3H PRN #0 02/12/18 08/12/18 History oxycodone [OxyContin] 20 mg PO Q3HP PRN #0 02/12/18 08/12/18 History Ketoconazole 1 don TOPICAL BID 03/30/18 08/12/18 History levothyroxine 150 mcg PO DAILY 03/30/18 08/12/18 History loperamide 2 mg PO Q2-4H PRN 03/30/18 08/12/18 History melatonin 1 mg PO BEDTIME PRN 03/30/18 08/12/18 History omeprazole 40 mg PO DAILY 03/30/18 08/12/18 History sertraline 100 mg PO DAILY 03/30/18 08/12/18 History lenalidomide [Revlimid] 15 mg PO DAILY #21 cap 04/20/18 08/12/18 Rx apixaban 5 mg PO DAILY 09/23/18 09/23/18 History Allergies Allergy/AdvReac Type Severity Reaction Status Date / Time morphine Allergy Severe STROKE Verified 04/20/18 13:22 LIKE SYMPTOMS levofloxacin Allergy Intermediate HIVES Verified 04/20/18 13:22 adhesive [ADHESIVE] Allergy Mild BLISTERS Verified 04/20/18 13:22 celecoxib Allergy Mild RASH, Verified 04/20/18 13:22 SMALL BLISTERS, NAUSEA Penicillins Allergy Mild RASH Verified 04/20/18 13:22 phenazopyridine Allergy Mild VOMITING Verified 04/20/18 13:22 [From PYRIDIUM] Sulfa (Sulfonamide Allergy Mild BLISTERS Verified 04/20/18 13:22 Antibiotics) lactose [LACTOSE] Allergy Unknown Verified 04/20/18 13:22 Results - Labs Laboratory Last Values WBC 2.5 X10^3/uL (4.5-11.0) L 09/09/18 11:18 RBC 2.97 X10^6/uL (4.0-5.2) L 09/09/18 11:18 Hgb 10.1 g/dL (12.0-16.0) L 09/09/18 11:18 Hct 30.4 % (36-46) L 09/09/18 11:18 MCV 102.1 fL (80-100) H 09/09/18 11:18 MCH 34.0 PG (26-34) 09/09/18 11:18 MCHC 33.3 % (30-36) 09/09/18 11:18 RDW 18.9 % (11.6-14.8) H 09/09/18 11:18 Plt Count 280 X10^3/uL (150-400) 09/09/18 11:18 Neut % (Auto) 58.1 % (50-75) 09/09/18 11:18 Lymph % (Auto) 21.0 % (25-40) L 09/09/18 11:18 Nelson % (Auto) 6.9 % (3-14) 09/09/18 11:18 Eos % (Auto) 10.4 % (2-4) H 09/09/18 11:18 Baso % (Auto) 3.6 % (0-2) H 09/09/18 11:18 Neut # (Auto) 1500 /uL (8186-0523) L 09/09/18 11:18 Total Counted 50 07/07/18 11:12 Seg Neutrophils % 52.0 % (38-70) 07/07/18 11:12 Lymphocytes % (Manual) 22.0 % (25-45) L 07/07/18 11:12 Monocytes % (Manual) 2.0 % (2-11) 07/07/18 11:12 Eosinophils % (Manual) 22.0 % (2-4) H 07/07/18 11:12 Basophils % (Manual) 2.0 % (0-1) H 07/07/18 11:12 Neutrophils # (Manual) 1664 /uL (9969-8442) L 07/07/18 11:12 RBC Morphology Not Reportable 07/07/18 11:12 Anisocytosis 1+ H 07/07/18 11:12 Sodium 140 mmol/L (137-145) 09/09/18 11:18 Potassium 3.8 mmol/L (3.4-5.1) 09/09/18 11:18 Chloride 104 mmol/L (98-107) 09/09/18 11:18 Carbon Dioxide 25 mmol/L (22-32) 09/09/18 11:18 BUN 20 mg/dL (7-17) H 09/09/18 11:18 Creatinine 0.70 mg/dL (0.52-1.04) 09/09/18 11:18 Estimated GFR > 60.0 mL/min (>60) 09/09/18 11:18 BUN/Creatinine Ratio 28.6 (6-22) H 09/09/18 11:18 Glucose 154 mg/dL (80-110) H 09/09/18 11:18 Calcium 9.0 mg/dL (8.4-10.2) 09/09/18 11:18 Total Bilirubin 0.3 mg/dL (0.2-1.3) 09/09/18 11:18 AST 26 IU/L (14-36) 09/09/18 11:18 ALT 34 IU/L (9-52) 09/09/18 11:18 Alkaline Phosphatase 118 U/L (38-126) 09/09/18 11:18 Lactate Dehydrogenase 504 U/L (313-618) 09/09/18 11:18 Serum Total Protein 5.6 g/dL (6.1-8.1) L 09/09/18 11:18 Total Protein 6.5 g/dL (6.3-8.2) 09/09/18 11:18 Albumin 2.9 g/dL (3.8-4.8) L 09/09/18 11:18 Globulin 2.9 g/dL (1.7-4.1) 09/09/18 11:18 Albumin/Globulin Ratio 1.2 (1.0-2.8) 09/09/18 11:18 Wwueu-0-Dpaftmsev 0.4 g/dL (0.2-0.3) H 09/09/18 11:18 Zombj-4-Pdyqvxqll 0.9 g/dL (0.5-0.9) 09/09/18 11:18 Gcbt-1-Nexovnve 0.4 g/dL (0.4-0.6) 09/09/18 11:18 Ibto-2-Jbvmblbs 0.3 g/dL (0.2-0.5) 09/09/18 11:18 Ppni-3-Iitzgjsmqslec 5.42 mg/L (< 2.52) H 09/09/18 11:18 Gamma Globulins 0.7 g/dL (0.8-1.7) L 09/09/18 11:18 Abnorm Protein Band 1 Not Reportable 09/09/18 11:18 Abnorm Protein Band 2 Not Reportable 09/09/18 11:18 Abn Gamma Band 3 Serum Not Reportable 09/09/18 11:18 PEP Comment See note 09/09/18 11:18 IgG, Serum (MS) 696 mg/dL (694-1618) 09/09/18 11:18 IgA 210 mg/dL (81-463) 09/09/18 11:18 IgM 35 mg/dL (48-271) L 09/09/18 11:18 DANDRE & SPEP Interp See note 09/09/18 11:18 Free [place] Light Chains 429.0 mg/L (3.3-19.4) H 09/09/18 11:18 Free Lambda Light Chain 22.9 mg/L (5.7-26.3) 09/09/18 11:18 Free [place]/Lambda Ratio 18.72 (0.26-1.65) H 09/09/18 11:18 - Imaging Additional studies: Procedures Biopsy of bone, other bones (04/23/14) Excision of lesion of other soft tissue (01/01/12) Inspection of Upper Intestinal Tract, Via Natural or Artificial Opening Endoscopic (01/30/16) Transfusion of Nonautologous Red Blood Cells into Central Vein, Percutaneous Approach (02/11/18) Assessment and Plan (1) Multiple myeloma Assessment Her serum free kappa light chain 429, Given the recent event of pulmonary embolism, she has been off treatment with Revlimid since 08/24/2018. The laboratory tests were performed on 09/09/2018. The serum free light chain ratio has significantly increased. In my opinion, this short time-off of Revlimid probably cannot explain the significantly elevated serum free kappa light chain. I was concerned about possible refractory evolution of her underlying multiple myeloma. I discussed with the patient that we need to repeat a bone marrow aspiration biopsy and a more complete staging including a PET CT. For the time being, I will continue to hold off on treatment with Revlimid. Of note Revlimid is also known to increase the risk of venous thromboembolism. Plan: 1. Continue to hold Revlimid 2. PET/CT 3. BMA/Bx 4. Left leg duplex 5. Continue Eliquis 5 mg bid 6. RTC in 3 weeks (2) Pulmonary embolus Assessment and plan: The etiology of her pulmonary embolism probably is multifactorial. The use of the Revlimid definitely is one of those factors. In addition patient has history of remote renal cell carcinoma. We know that renal cell carcinoma can recur even decades later. It is of some concern. I think the PET-CT I mentioned above will help us determine if there is any any evidence of recurrence or metastasis. Patient will need continue to take Eliquis. The source of the emboli is not clear at this moment. Patient said that she has not had lower extremity duplex. On my physical examination, her left leg slightly bigger compared to the right side. I will proceed with the duplex study of the left leg as I mentioned above. (3) History of renal cell carcinoma Assessment and plan: Patient has a remote history of right renal cell carcinoma status post right radical nephrectomy. The current occurrence of pulmonary embolism raises the possibility that there may be recurrence of her known renal cell carcinoma. I will follow up on the PET-CT.
--- NOTE | 2018-09-29 13:43 | ONC.PROCEDUR ---
Date of procedure: 09/29/18 Diagnosis: multiple myeloma Onc Bone Marrow: bone marrow biopsy and aspiration Procedure: Patient was instructed to lie on her left side. Right posterior iliac crest area was cleaned, sterilized and draped per standard procedure. Local anesthesia was obtained by injection of 2% lidocaine. Thereafter I inserted the bone marrow biopsy needle without any difficulties. About 0.8 cm long biopsy core sample was obtained. Then I inserted the aspiration needle and aspirated about 20 cc of bone marrow sample. Patient tolerated the procedure well. No immediate complications.
[2018-09-29] MEDS: ALTEPLASE 2 MG/2 ML VIAL IV (14:16)
[2018-09-29 14:21] LABS: Add Manual Diff / Slide Review NO; Basophils Percent Auto 0.6 % (0-2); Eosinophils Percent Auto 2.2 % (2-4); Hematocrit 34.4 % (36-46); Hemoglobin 11.3 g/dL (12.0-16.0); Lymphocytes Percent Auto 27.7 % (25-40); Mean Corpuscular HGB Conc 32.9 % (30-36); Mean Corpuscular Hemoglobin 34.5 PG (26-34); Mean Corpuscular Volume 104.8 fL (80-100); Monocytes Percent Auto 11.6 % (3-14); Neutrophils Absolute Auto 1500 /uL (3000-5900); Neutrophils Percent Auto 57.9 % (50-75); Platelet Count 167 X10^3/uL (150-400); Red Blood Cell Count 3.28 X10^6/uL (4.0-5.2); Red Cell Distribution Width 18.8 % (11.6-14.8); White Blood Cell Count 2.6 X10^3/uL (4.5-11.0)
--- NOTE | 2018-10-05 10:30 | PC.NURSE ---
Addendum entered by Mariah De Leon 10/12/18 12:18: PATH PROGRESS- Received bone marrow biopsy results dated 10/05/18 from [facility]. Mariah PANIAGUA Original Note: PATH PROGRESS- Patient had bone marrow biopsy performed on 09/29/18. Left message for Christine at [facility] on 10/05/18 to determine if pathology results would be available for appointment with Dr. Page 10/06/18. Mariah PANIAGUA
--- NOTE | 2018-10-12 14:14 | ONC.SCHED ---
PATH PROGRESS: FISH/FLOW/CYTOGENICS RECEIVED ON [facility]
--- NOTE | 2018-10-14 13:58 | ONC.PN ---
PN -Subjective Interval history: 78 year-old female with multiple myeloma and renal cell carcinoma. She had been on revlimid 15 mg daily 3 weeks on and 1 week off. She is not using dexamethasone. She presented with acute onset shortness of breath on 08/13/2018. She was hospitalized at [facility] and CT scan showed saddle pulmonary embolism. She received lovenox and then Eliquis 5 mg bid since. After admission, she stopped taking revlimid. She then was discharged to [facility]. On 09/29/2018, she underwent BMA/Bx: Mildly hypercellular marrow for age (estimated 50% cellularity) with involvement of a kappa restricted plasma cell population, adequate trilineage hematopoiesis with relative erythroid hyperplasia and no significant morphologic dysplasia, flow cytometry showed no abnormal plasma cell population, no abnormal B-cell or T-cell population and no abnormal blast or myeloid cell population. Cytogenetics are normal female 44 XX[19]. The abnormal plasma cell population exhibits a patchy distribution in the marrow predominantly forming confluent moderately-sized aggregate/sheets of abnormal plasma cells that are scattered throughout the marrow. No discrete atypical plasma cell aggregates are seen in the core biopsy. By immunohistochemistry, the abnormal plasma cells comprise an estimated 10-15% of the total marrow cellularity and they are kappa light chain restricted with aberrant coexpression of CD56. In the background, there is an additional plasma cell subset that appears polytypic, which is relatively evenly-distributed in the marrow and compresses an additional 2-3% of the total marrow cells. Overall these findings indicate persistent or recurrent marrow involvement by the patient's previously-characterized kappa restricted plasma cell neoplasm. Today, she continues to complain of right sided rhomboid muscle pain. She is now taking oxycodone 10/325 every 8 hours at [facility]. She is wondering if it can be adjusted to every 6 hours prn. No other new events. Oncological history Ms. Lorraine Parra is an 78 year old female with prolonged history of multiple myeloma. 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 0n 04/04/2014, she was seen by Dr. Bose. She was started treatment with Revlimid/Dex. And later, she was transitioned to maintenance revlimid only regimen. Throughout her disease course, she has been followed at [facility] and has received multiple brief courses of palliative radiation therapy for the pain control. It is summarized as follows. She developed new right upper back pain in 01/2014. A new expansile lytic lesions seen on 6th rib measuring 1.6 cm associated with subacute pathological fracure, multiple bilateral small lytic lesions of the ribs. A lytic lesion 2.2 cm in right posterior vertebral body and pedicle of T11 and a large lytic lesion in the body of L2. She underwent XRT 06/05/2014 to 06/19/2014 to right 6 th rib, left posterior 9th rib, T11 through L1 to L4, left illium and C5 through C7, 3000 cgy in 10 fractions. And X-ray 09/26/2014 right humerus showed osteolytic process invilving the proximal diaphysis of the right humerus, CT head 10/08/2018: lytic lesions involving the right frontal calvarium. He received XRT 10/31/2014 to 11/13/2014 to right humerus and shoulder completed Nov 13, 2014. In April 2015 due to increasing mid back pain patient underwent MRI of the spine that identified 2 areas of abnormal marrow signal, both centered to the right of midline involving T7 and T12. Patient was again treated with a brief course of radiation therapy from 06/10/2015 through 06/21/2015. She received 20 Gy in 2.5 Gy daily fractions for 2 weeks. Due to increasing right humeral pain, patient received radiation therapy from 07/04/2015 through 07/19/2015, 18 Gy in 1.8 Gy daily fractions over 10 elapsed treatments. Due to increasing back pain patient again received another brief course of low-dose radiotherapy from 08/19/2015 through 08/23/2015. She then had another course of palliative irradiation to vertebra TS 9 through L1 from 01/14/2016 through 01/28/2016. On January 15, 2018, she presented at ER on transfer from [facility] for onset of very severe pain in the right ear and mastoid region accompanied by delirium. MRI imaging noted a lytic lesion in the right mastoid and patient received brief radiation therapy to that area. Of note, she had right nephrectomy 09/2008 for renal cell carcinoma, high grade papillary, with chronic renal insufficiency. - Additional ROS All systems PM: reviewed and no additional remarkable complaints except as stated Home Medications and Allergies Home Medications Medication Instructions Recorded Confirmed Type gabapentin 600 mg PO TID #0 12/01/11 08/12/18 History cholecalciferol (vitamin D3) 2,000 iu PO QDAY #0 07/22/16 08/12/18 History [Vitamin D3] primidone [Mysoline] 4 tab PO QDAY #0 07/22/16 08/12/18 History propranolol 160 mg PO AMCC #0 07/22/16 08/12/18 History ipratropium bromide 2 spray INH BID #0 07/27/16 08/12/18 History lactulose 10 gm PO BID #360 ml 08/19/16 08/12/18 Rx [ZOMETA] QMONTH #0 04/12/17 History glipizide 5 mg PO AMAC #0 04/19/17 08/12/18 History lidocaine-prilocaine 1 don TOPICAL PRN PRN #30 gm 05/05/17 08/12/18 Rx multivitamin [Multiple Vitamins] 1 tab PO QDAY #0 05/12/17 08/12/18 History conjugated estrogens [Premarin] 0.3 mg PO HS #0 01/14/18 08/12/18 History eszopiclone 3 mg PO HS #0 01/14/18 08/12/18 History primidone [Mysoline] 100 mg PO BID #0 01/14/18 08/12/18 History propranolol 80 mg PO BID #0 01/14/18 08/12/18 History albuterol sulfate 1 puff INH QID #0 02/12/18 08/12/18 History clobetasol-emollient 0.05 pump TOPICAL Q8HP #0 02/12/18 08/12/18 History diphenoxylate-atropine 1 tab PO BID #0 02/12/18 08/12/18 History guaifenesin 600 mg PO BID #0 02/12/18 08/12/18 History ondansetron [Zofran ODT] 8 mg PO Q8HP PRN #0 02/12/18 08/12/18 History oxycodone [OxyContin] 10 mg PO Q3H PRN #0 02/12/18 08/12/18 History oxycodone [OxyContin] 20 mg PO Q3HP PRN #0 02/12/18 08/12/18 History Ketoconazole 1 don TOPICAL BID 03/30/18 08/12/18 History levothyroxine 150 mcg PO DAILY 03/30/18 08/12/18 History loperamide 2 mg PO Q2-4H PRN 03/30/18 08/12/18 History melatonin 1 mg PO BEDTIME PRN 03/30/18 08/12/18 History omeprazole 40 mg PO DAILY 03/30/18 08/12/18 History sertraline 100 mg PO DAILY 03/30/18 08/12/18 History lenalidomide [Revlimid] 15 mg PO DAILY #21 cap 04/20/18 08/12/18 Rx apixaban 5 mg PO DAILY 09/23/18 09/23/18 History acetaminophen [Tylenol Extra 650 mg PO TID PRN #60 tab 09/29/18 10/14/18 Rx Strength] Allergies Allergy/AdvReac Type Severity Reaction Status Date / Time morphine Allergy Severe STROKE Verified 04/20/18 13:22 LIKE SYMPTOMS levofloxacin Allergy Intermediate HIVES Verified 04/20/18 13:22 adhesive [ADHESIVE] Allergy Mild BLISTERS Verified 04/20/18 13:22 celecoxib Allergy Mild RASH, Verified 04/20/18 13:22 SMALL BLISTERS, NAUSEA Penicillins Allergy Mild RASH Verified 04/20/18 13:22 phenazopyridine Allergy Mild VOMITING Verified 04/20/18 13:22 [From PYRIDIUM] Sulfa (Sulfonamide Allergy Mild BLISTERS Verified 04/20/18 13:22 Antibiotics) lactose [LACTOSE] Allergy Unknown Verified 04/20/18 13:22 Exam Vital signs: Last Vital Signs Temp 98.1 F 10/14/18 14:00 Pulse 68 10/14/18 14:00 Resp 18 10/14/18 14:00 BP 145/64 H 10/14/18 14:00 Pulse Ox 98 10/14/18 14:00 ECOG 1 Narrative: Constitutional: Well developed, well nourished, not in any acute respiratory distress, in wheelchair. HEENT: Normocephalic atraumatic. Extraocular muscle movement intact. Pupils are round, equal and reactive to light and accommodations. Anicteric sclera. No hearing difficulty; Oral mucus membrane moist and without ulcers. Neck: Supple, symmetrical, and tracheal midline; No palpable thyromegaly and no palpable lymph nodes. Respiratory: No use of accessory muscles. Clear to auscultation, and no wheezes or rales or rubs. Cardiovascular: Regular rate and rhythm, S1 and S2 normal, no murmurs gallops or rubs. No JVD. Abdomen: Soft, nontender, non-distended, bowel sounds normal, no palpable organomegaly, no hernia, no palpable masses. Lower extremities: No palpable pedal edema. But left side is slightly bigger than the right side. Lymphatic: no palpable lymph nodes in the neck, axillae, or groins. Musculoskeletal: normal gait and station, no clubbing, no cyanosis, no pitting edema. Skin: no rashes, no ulcers, no petechiae Neurological: Awake and alert and oriented x3. CN II-XII grossly intact. No focal motor or sensory deficit. Psychiatric: Good judgment, good insight, normal affect, normal thought process, cooperative, no depression, no anxiety. Results - Labs Laboratory Last Values WBC 2.6 X10^3/uL (4.5-11.0) L 09/29/18 13:46 RBC 3.28 X10^6/uL (4.0-5.2) L 09/29/18 13:46 Hgb 11.3 g/dL (12.0-16.0) L 09/29/18 13:46 Hct 34.4 % (36-46) L 09/29/18 13:46 MCV 104.8 fL (80-100) H 09/29/18 13:46 MCH 34.5 PG (26-34) H 09/29/18 13:46 MCHC 32.9 % (30-36) 09/29/18 13:46 RDW 18.8 % (11.6-14.8) H 09/29/18 13:46 Plt Count 167 X10^3/uL (150-400) 09/29/18 13:46 Neut % (Auto) 57.9 % (50-75) 09/29/18 13:46 Lymph % (Auto) 27.7 % (25-40) 09/29/18 13:46 [place] % (Auto) 11.6 % (3-14) 09/29/18 13:46 Eos % (Auto) 2.2 % (2-4) 09/29/18 13:46 Baso % (Auto) 0.6 % (0-2) 09/29/18 13:46 Neut # (Auto) 1500 /uL (3476-1531) L 09/29/18 13:46 Total Counted 50 07/07/18 11:12 Seg Neutrophils % 52.0 % (38-70) 07/07/18 11:12 Lymphocytes % (Manual) 22.0 % (25-45) L 07/07/18 11:12 Monocytes % (Manual) 2.0 % (2-11) 07/07/18 11:12 Eosinophils % (Manual) 22.0 % (2-4) H 07/07/18 11:12 Basophils % (Manual) 2.0 % (0-1) H 07/07/18 11:12 Neutrophils # (Manual) 1664 /uL (5991-8042) L 07/07/18 11:12 RBC Morphology Not Reportable 07/07/18 11:12 Anisocytosis 1+ H 07/07/18 11:12 Sodium 140 mmol/L (137-145) 09/09/18 11:18 Potassium 3.8 mmol/L (3.4-5.1) 09/09/18 11:18 Chloride 104 mmol/L (98-107) 09/09/18 11:18 Carbon Dioxide 25 mmol/L (22-32) 09/09/18 11:18 BUN 20 mg/dL (7-17) H 09/09/18 11:18 Creatinine 0.70 mg/dL (0.52-1.04) 09/09/18 11:18 Estimated GFR > 60.0 mL/min (>60) 09/09/18 11:18 BUN/Creatinine Ratio 28.6 (6-22) H 09/09/18 11:18 Glucose 154 mg/dL (80-110) H 09/09/18 11:18 Calcium 9.0 mg/dL (8.4-10.2) 09/09/18 11:18 Total Bilirubin 0.3 mg/dL (0.2-1.3) 09/09/18 11:18 AST 26 IU/L (14-36) 09/09/18 11:18 ALT 34 IU/L (9-52) 09/09/18 11:18 Alkaline Phosphatase 118 U/L (38-126) 09/09/18 11:18 Lactate Dehydrogenase 504 U/L (313-618) 09/09/18 11:18 Serum Total Protein 5.6 g/dL (6.1-8.1) L 09/09/18 11:18 Total Protein 6.5 g/dL (6.3-8.2) 09/09/18 11:18 Albumin 2.9 g/dL (3.8-4.8) L 09/09/18 11:18 Globulin 2.9 g/dL (1.7-4.1) 09/09/18 11:18 Albumin/Globulin Ratio 1.2 (1.0-2.8) 09/09/18 11:18 Fnzqf-0-Fgjpzhgqy 0.4 g/dL (0.2-0.3) H 09/09/18 11:18 Fqoer-5-Tjiexpbxp 0.9 g/dL (0.5-0.9) 09/09/18 11:18 Smqb-8-Cpllvdxm 0.4 g/dL (0.4-0.6) 09/09/18 11:18 Apnz-8-Jaotdixj 0.3 g/dL (0.2-0.5) 09/09/18 11:18 Yxnt-9-Mqadsougyzzyw 5.42 mg/L (< 2.52) H 09/09/18 11:18 Gamma Globulins 0.7 g/dL (0.8-1.7) L 09/09/18 11:18 Abnorm Protein Band 1 Not Reportable 09/09/18 11:18 Abnorm Protein Band 2 Not Reportable 09/09/18 11:18 Abn Gamma Band 3 Serum Not Reportable 09/09/18 11:18 PEP Comment See note 09/09/18 11:18 IgG, Serum (MS) 696 mg/dL (694-1618) 09/09/18 11:18 IgA 210 mg/dL (81-463) 09/09/18 11:18 IgM 35 mg/dL (48-271) L 09/09/18 11:18 DANDRE & SPEP Interp See note 09/09/18 11:18 Free [place] Light Chains 429.0 mg/L (3.3-19.4) H 09/09/18 11:18 Free [place] Light Chain 22.9 mg/L (5.7-26.3) 09/09/18 11:18 Free [place]/Lambda Ratio 18.72 (0.26-1.65) H 09/09/18 11:18 - Imaging Additional studies: Procedures Biopsy of bone, other bones (04/23/14) Excision of lesion of other soft tissue (01/01/12) Inspection of Upper Intestinal Tract, Via Natural or Artificial Opening Endoscopic (01/30/16) Assessment and Plan (1) Multiple myeloma Problem details: 1. 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 2. She has had numerous short courses of radaition therapyh for pain control (see HPI) 3. She received Revlimid/Dex in 2013 and later transitioned to Revlimid only maintenance. Assessment: I reviewed the bone marrow aspiration biopsy from 09/29/2018 results with the patient. Residual abnormal plasma cells account for 10-15% of the bone marrow cellularity. Cytogenetics are normal. Flow cytometry actually did not show any evidence of abnormal plasma cells and no abnormal B or T cell or blasts. Patient is scheduled for a PET-CT in early October. I talked with the patient that I will wait until after the PET-CT is done and will talk with her about possibly resuming the treatment with Revlimid in early October. Plan: 1. Continue to hold Revlimid 2. PET/CT as scheduled in 10/26/2017 3. Continue Eliquis 5 mg bid 4. RTC in 4 weeks CBC, CMP, MM panel (2) Pulmonary embolus Assessment and Plan: Patient underwent lower extremity ultrasound study on 09/23/2018. No evidence of DVT found. The emboli source of the pulmonary embolism is not clear at this moment. For now, will continue Apixaban 5 mg bid. (3) History of renal cell carcinoma Problem details: She had right nephrectomy 09/2008 for renal cell carcinoma, high grade, papillary, with chronic renal insufficiency. Assessment and plan: Patient has a remote history of right renal cell carcinoma status post right radical nephrectomy. The current occurrence of pulmonary embolism raises the possibility that there may be recurrence of her known renal cell carcinoma. I will see the patient after PET-CT.
[2018-10-14 14:00] VITALS: BP 145/64; PULSE 68; RESP 18; TEMP 36.7; O2SAT 98
[2018-11-01 15:51] LABS: Add Manual Diff / Slide Review NO; Basophils Percent Auto 0.6 % (0-2); Eosinophils Percent Auto 3.3 % (2-4); Hematocrit 34.4 % (36-46); Hemoglobin 11.8 g/dL (12.0-16.0); Lymphocytes Percent Auto 23.3 % (25-40); Mean Corpuscular HGB Conc 34.2 % (30-36); Mean Corpuscular Hemoglobin 34.6 PG (26-34); Mean Corpuscular Volume 101.1 fL (80-100); Monocytes Percent Auto 10.9 % (3-14); Neutrophils Absolute Auto 2200 /uL (1500-7000); Neutrophils Percent Auto 61.9 % (50-75); Platelet Count 196 X10^3/uL (150-400); Red Cell Distribution Width 16.1 % (11.6-14.8); White Blood Cell Count 3.5 X10^3/uL (4.5-11.0)
[2018-11-01 16:04] LABS: Lactate Dehydrogenase 469 U/L (313-618)
[2018-11-01 16:06] LABS: Alanine Aminotransferase 22 IU/L (9-52); Albumin 3.9 g/dL (3.5-5.0); Albumin Globulin Ratio 1.4 (1.0-2.8); Alkaline Phosphatase 94 U/L (38-126); Aspartate Aminotransferase 19 IU/L (14-36); Bilirubin Total 0.3 mg/dL (0.2-1.3); Blood Urea Nitrogen 33 mg/dL (7-17); Calcium 9.2 mg/dL (8.4-10.2); Carbon Dioxide 28 mmol/L (22-32); Chloride 104 mmol/L (98-107); Estimated Glomerular Filt Rate 47.8 mL/min (>60); Globulin 2.8 g/dL (1.7-4.1); Glucose 144 mg/dL (80-110); HEMOLYSIS 15 (0-50); Potassium 4.8 mmol/L (3.4-5.1); Sodium 142 mmol/L (137-145); Total Protein 6.7 g/dL (6.3-8.2)
[2018-11-03 14:25] LABS: Immunoglobulin A 169 mg/dL (81-463); Immunoglobulin G, Quantitative 802 mg/dL (694-1618); Immunoglobulin M, Quantitative 45 mg/dL (48-271)
[2018-11-03 16:12] LABS: Free Kappa/ Lambda Ratio 48.47 (0.26-1.65)
[2018-11-03 16:36] LABS: Beta-2-Microglobulin 5.38 mg/L (< 2.52)
--- NOTE | 2018-11-04 15:16 | ONC.PN ---
PN -Subjective Interval history: 78 year-old female with multiple myeloma and renal cell carcinoma. She had been on revlimid 15 mg daily 3 weeks on and 1 week off. She is not using dexamethasone. She presented with acute onset shortness of breath on 08/13/2018. She was hospitalized at [facility] and CT scan showed saddle pulmonary embolism. She received lovenox and then Eliquis 5 mg bid since. After admission, she stopped taking revlimid. She then was discharged to [facility]. On 09/29/2018, she underwent BMA/Bx: Mildly hypercellular marrow for age (estimated 50% cellularity) with involvement of a kappa restricted plasma cell population, adequate trilineage hematopoiesis with relative erythroid hyperplasia and no significant morphologic dysplasia, flow cytometry showed no abnormal plasma cell population, no abnormal B-cell or T-cell population and no abnormal blast or myeloid cell population. Cytogenetics are normal female 44 XX[19]. The abnormal plasma cell population exhibits a patchy distribution in the marrow predominantly forming confluent moderately-sized aggregate/sheets of abnormal plasma cells that are scattered throughout the marrow. No discrete atypical plasma cell aggregates are seen in the core biopsy. By immunohistochemistry, the abnormal plasma cells comprise an estimated 10-15% of the total marrow cellularity and they are kappa light chain restricted with aberrant coexpression of CD56. In the background, there is an additional plasma cell subset that appears polytypic, which is relatively evenly-distributed in the marrow and compresses an additional 2-3% of the total marrow cells. Overall these findings indicate persistent or recurrent marrow involvement by the patient's previously-characterized kappa restricted plasma cell neoplasm. Today, she continues to complain of right sided rhomboid muscle pain. She is now taking oxycodone 10/325 every 8 hours at [facility]. She is wondering if it can be adjusted to every 6 hours prn. No other new events. Oncological history Ms. Lorraine Parra is an 78 year old female with prolonged history of multiple myeloma. 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 0n 04/04/2014, she was seen by Dr. Bose. She was started treatment with Revlimid/Dex. And later, she was transitioned to maintenance revlimid only regimen. Throughout her disease course, she has been followed at [facility] and has received multiple brief courses of palliative radiation therapy for the pain control. It is summarized as follows. She developed new right upper back pain in 01/2014. A new expansile lytic lesions seen on 6th rib measuring 1.6 cm associated with subacute pathological fracure, multiple bilateral small lytic lesions of the ribs. A lytic lesion 2.2 cm in right posterior vertebral body and pedicle of T11 and a large lytic lesion in the body of L2. She underwent XRT 06/05/2014 to 06/19/2014 to right 6 th rib, left posterior 9th rib, T11 through L1 to L4, left illium and C5 through C7, 3000 cgy in 10 fractions. And X-ray 09/26/2014 right humerus showed osteolytic process invilving the proximal diaphysis of the right humerus, CT head 10/08/2018: lytic lesions involving the right frontal calvarium. He received XRT 10/31/2014 to 11/13/2014 to right humerus and shoulder completed Nov 13, 2014. In April 2015 due to increasing mid back pain patient underwent MRI of the spine that identified 2 areas of abnormal marrow signal, both centered to the right of midline involving T7 and T12. Patient was again treated with a brief course of radiation therapy from 06/10/2015 through 06/21/2015. She received 20 Gy in 2.5 Gy daily fractions for 2 weeks. Due to increasing right humeral pain, patient received radiation therapy from 07/04/2015 through 07/19/2015, 18 Gy in 1.8 Gy daily fractions over 10 elapsed treatments. Due to increasing back pain patient again received another brief course of low-dose radiotherapy from 08/19/2015 through 08/23/2015. She then had another course of palliative irradiation to vertebra TS 9 through L1 from 01/14/2016 through 01/28/2016. On January 15, 2018, she presented at ER on transfer from [facility] for onset of very severe pain in the right ear and mastoid region accompanied by delirium. MRI imaging noted a lytic lesion in the right mastoid and patient received brief radiation therapy to that area. Of note, she had right nephrectomy 09/2008 for renal cell carcinoma, high grade papillary, with chronic renal insufficiency. Home Medications and Allergies Home Medications Medication Instructions Recorded Confirmed Type gabapentin 600 mg PO TID #0 12/01/11 11/04/18 History cholecalciferol (vitamin D3) 2,000 iu PO QDAY #0 07/22/16 11/04/18 History [Vitamin D3] primidone [Mysoline] 4 tab PO QDAY #0 07/22/16 11/04/18 History propranolol 160 mg PO AMCC #0 07/22/16 11/04/18 History ipratropium bromide 2 spray INH BID #0 07/27/16 11/04/18 History lactulose 10 gm PO BID #360 ml 08/19/16 11/04/18 Rx [ZOMETA] QMONTH #0 04/12/17 History glipizide 5 mg PO AMAC #0 04/19/17 11/04/18 History lidocaine-prilocaine 1 don TOPICAL PRN PRN #30 gm 05/05/17 11/04/18 Rx multivitamin [Multiple Vitamins] 1 tab PO QDAY #0 05/12/17 11/04/18 History conjugated estrogens [Premarin] 0.3 mg PO HS #0 01/14/18 11/04/18 History eszopiclone 3 mg PO HS #0 01/14/18 11/04/18 History primidone [Mysoline] 100 mg PO BID #0 01/14/18 11/04/18 History propranolol 80 mg PO BID #0 01/14/18 11/04/18 History albuterol sulfate 1 puff INH QID #0 02/12/18 11/04/18 History clobetasol-emollient 0.05 pump TOPICAL Q8HP #0 02/12/18 11/04/18 History diphenoxylate-atropine 1 tab PO BID #0 02/12/18 11/04/18 History guaifenesin 600 mg PO BID #0 02/12/18 11/04/18 History ondansetron [Zofran ODT] 8 mg PO Q8HP PRN #0 02/12/18 11/04/18 History oxycodone [OxyContin] 10 mg PO Q3H PRN #0 02/12/18 11/04/18 History oxycodone [OxyContin] 20 mg PO Q3HP PRN #0 02/12/18 11/04/18 History Ketoconazole 1 don TOPICAL BID 03/30/18 11/04/18 History levothyroxine 150 mcg PO DAILY 03/30/18 11/04/18 History loperamide 2 mg PO Q2-4H PRN 03/30/18 11/04/18 History melatonin 1 mg PO BEDTIME PRN 03/30/18 11/04/18 History omeprazole 40 mg PO DAILY 03/30/18 11/04/18 History sertraline 100 mg PO DAILY 03/30/18 11/04/18 History lenalidomide [Revlimid] 15 mg PO DAILY #21 cap 04/20/18 11/04/18 Rx apixaban 5 mg PO DAILY 09/23/18 11/04/18 History acetaminophen [Tylenol Extra 650 mg PO TID PRN #60 tab 09/29/18 11/04/18 Rx Strength] Allergies Allergy/AdvReac Type Severity Reaction Status Date / Time morphine Allergy Severe STROKE Verified 04/20/18 13:22 LIKE SYMPTOMS levofloxacin Allergy Intermediate HIVES Verified 04/20/18 13:22 adhesive [ADHESIVE] Allergy Mild BLISTERS Verified 04/20/18 13:22 celecoxib Allergy Mild RASH, Verified 04/20/18 13:22 SMALL BLISTERS, NAUSEA Penicillins Allergy Mild RASH Verified 04/20/18 13:22 phenazopyridine Allergy Mild VOMITING Verified 04/20/18 13:22 [From PYRIDIUM] Sulfa (Sulfonamide Allergy Mild BLISTERS Verified 04/20/18 13:22 Antibiotics) lactose [LACTOSE] Allergy Unknown Verified 04/20/18 13:22 Exam Vital signs: Last Vital Signs Temp 98.2 F 11/04/18 15:22 Pulse 74 11/04/18 15:22 Resp 19 11/04/18 15:22 BP 130/83 11/04/18 15:22 Pulse Ox 99 11/04/18 15:22 ECOG 1 Narrative: Constitutional: Well developed, well nourished, not in any acute respiratory distress, in wheelchair. HEENT: Normocephalic atraumatic. Extraocular muscle movement intact. Pupils are round, equal and reactive to light and accommodations. Anicteric sclera. No hearing difficulty; Oral mucus membrane moist and without ulcers. Neck: Supple, symmetrical, and tracheal midline; No palpable thyromegaly and no palpable lymph nodes. Respiratory: No use of accessory muscles. Clear to auscultation, and no wheezes or rales or rubs. Cardiovascular: Regular rate and rhythm, S1 and S2 normal, no murmurs gallops or rubs. No JVD. Abdomen: Soft, nontender, non-distended, bowel sounds normal, no palpable organomegaly, no hernia, no palpable masses. Lower extremities: No palpable pedal edema. But left side is slightly bigger than the right side. Lymphatic: no palpable lymph nodes in the neck, axillae, or groins. Musculoskeletal: normal gait and station, no clubbing, no cyanosis, no pitting edema. Skin: no rashes, no ulcers, no petechiae Neurological: Awake and alert and oriented x3. CN II-XII grossly intact. No focal motor or sensory deficit. Psychiatric: Good judgment, good insight, normal affect, normal thought process, cooperative, no depression, no anxiety. Results - Labs Laboratory Last Values WBC 3.5 X10^3/uL (4.5-11.0) L 11/01/18 15:40 RBC 3.40 X10^6/uL (4.0-5.2) L 11/01/18 15:40 Hgb 11.8 g/dL (12.0-16.0) L 11/01/18 15:40 Hct 34.4 % (36-46) L 11/01/18 15:40 MCV 101.1 fL (80-100) H 11/01/18 15:40 MCH 34.6 PG (26-34) H 11/01/18 15:40 MCHC 34.2 % (30-36) 11/01/18 15:40 RDW 16.1 % (11.6-14.8) H 11/01/18 15:40 Plt Count 196 X10^3/uL (150-400) 11/01/18 15:40 Neut % (Auto) 61.9 % (50-75) 11/01/18 15:40 Lymph % (Auto) 23.3 % (25-40) L 11/01/18 15:40 [place] % (Auto) 10.9 % (3-14) 11/01/18 15:40 Eos % (Auto) 3.3 % (2-4) 11/01/18 15:40 Baso % (Auto) 0.6 % (0-2) 11/01/18 15:40 Neut # (Auto) 2200 /uL (4277-4762) 11/01/18 15:40 Total Counted 50 07/07/18 11:12 Seg Neutrophils % 52.0 % (38-70) 07/07/18 11:12 Lymphocytes % (Manual) 22.0 % (25-45) L 07/07/18 11:12 Monocytes % (Manual) 2.0 % (2-11) 07/07/18 11:12 Eosinophils % (Manual) 22.0 % (2-4) H 07/07/18 11:12 Basophils % (Manual) 2.0 % (0-1) H 07/07/18 11:12 Neutrophils # (Manual) 1664 /uL (7581-4061) L 07/07/18 11:12 RBC Morphology Not Reportable 07/07/18 11:12 Anisocytosis 1+ H 07/07/18 11:12 Sodium 142 mmol/L (137-145) 11/01/18 15:40 Potassium 4.8 mmol/L (3.4-5.1) 11/01/18 15:40 Chloride 104 mmol/L (98-107) 11/01/18 15:40 Carbon Dioxide 28 mmol/L (22-32) 11/01/18 15:40 BUN 33 mg/dL (7-17) H 11/01/18 15:40 Creatinine 1.10 mg/dL (0.52-1.04) H 11/01/18 15:40 Estimated GFR 47.8 mL/min (>60) L 11/01/18 15:40 BUN/Creatinine Ratio 30.0 (6-22) H 11/01/18 15:40 Glucose 144 mg/dL (80-110) H 11/01/18 15:40 Calcium 9.2 mg/dL (8.4-10.2) 11/01/18 15:40 Total Bilirubin 0.3 mg/dL (0.2-1.3) 11/01/18 15:40 AST 19 IU/L (14-36) 11/01/18 15:40 ALT 22 IU/L (9-52) 11/01/18 15:40 Alkaline Phosphatase 94 U/L (38-126) 11/01/18 15:40 Lactate Dehydrogenase 469 U/L (313-618) 11/01/18 15:40 Serum Total Protein 5.6 g/dL (6.1-8.1) L 09/09/18 11:18 Total Protein 6.7 g/dL (6.3-8.2) 11/01/18 15:40 Albumin 3.9 g/dL (3.5-5.0) 11/01/18 15:40 Globulin 2.8 g/dL (1.7-4.1) 11/01/18 15:40 Albumin/Globulin Ratio 1.4 (1.0-2.8) 11/01/18 15:40 Omiyx-6-Yitfcobpa 0.4 g/dL (0.2-0.3) H 09/09/18 11:18 Sivwp-8-Xxvxpzpdu 0.9 g/dL (0.5-0.9) 09/09/18 11:18 Gjde-1-Ayeunnku 0.4 g/dL (0.4-0.6) 09/09/18 11:18 Znob-8-Knfolrnb 0.3 g/dL (0.2-0.5) 09/09/18 11:18 Yopy-2-Dgzwcmoyzhtnv 5.38 mg/L (< 2.52) H 11/01/18 15:40 Gamma Globulins 0.7 g/dL (0.8-1.7) L 09/09/18 11:18 Abnorm Protein Band 1 Not Reportable 09/09/18 11:18 Abnorm Protein Band 2 Not Reportable 09/09/18 11:18 Abn Gamma Band 3 Serum Not Reportable 09/09/18 11:18 PEP Comment See note 09/09/18 11:18 IgG, Serum (MS) 802 mg/dL (694-1618) 11/01/18 15:40 IgA 169 mg/dL (81-463) 11/01/18 15:40 IgM 45 mg/dL (48-271) L 11/01/18 15:40 DANDRE & SPEP Interp See note 09/09/18 11:18 Free [place] Light Chains 728.0 mg/L (3.3-19.4) H 11/01/18 15:40 Free [place] Light Chain 15.0 mg/L (5.7-26.3) 11/01/18 15:40 Free [place]/Lambda Ratio 48.47 (0.26-1.65) H 11/01/18 15:40 - Imaging Additional studies: Procedures Biopsy of bone, other bones (04/23/14) Excision of lesion of other soft tissue (01/01/12) Inspection of Upper Intestinal Tract, Via Natural or Artificial Opening Endoscopic (01/30/16) Assessment and Plan (1) Multiple myeloma Problem details: 1. 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 2. She has had numerous short courses of radaition therapyh for pain control (see HPI) 3. She received Revlimid/Dex in 2013 and later transitioned to Revlimid only maintenance. Assessment: I reviewed the PET scan results with the patient. PET scan showed multiple bone lesions suggestive of progression of the underlying known multiple myeloma. More specifically the PET scan showed that the right femoral head lytic lesion at risk of pathological fracture. Left iliac lesion was also noted. As well as in numerable lytic lesions involving axial and appendicular skeletons. Serum free light chain concentration also has significantly increased. Given the above, I think patient has underlying multiple myeloma has relapsed and has been progressing. I would recommend proceed to second line treatment with daratumumab/Velcade/dexamethasone. Plan: 1. MRI right hip w/wo contrast per radiologist recommendation 2. [facility] referral to evaluate possible XRT to right hip 3. Jaquelin/Velcade/Dex to be started on next 4. Continue Eliquis 5 mg bid 5. RTC C1D1, CBC, CMP. (2) Pulmonary embolus Assessment and Plan: Patient underwent lower extremity ultrasound study on 09/23/2018. No evidence of DVT found. The emboli source of the pulmonary embolism is not clear at this moment. For now, will continue Apixaban 5 mg bid. (3) History of renal cell carcinoma Problem details: She had right nephrectomy 09/2008 for renal cell carcinoma, high grade, papillary, with chronic renal insufficiency. Assessment and plan: Patient has a remote history of right renal cell carcinoma status post right radical nephrectomy. The current occurrence of pulmonary embolism raises the possibility that there may be recurrence of her known renal cell carcinoma. I will continue surveillance.
[2018-11-04 15:22] VITALS: BP 130/83; PULSE 74; RESP 19; TEMP 36.8; O2SAT 99
[2018-11-04 22:07] LABS: Albumin 3.6 g/dL (3.8-4.8); Alpha 1 Globulin 0.3 g/dL (0.2-0.3); Alpha 2 Globulin 0.7 g/dL (0.5-0.9); Beta 1 Globulin 0.4 g/dL (0.4-0.6); Gamma Globulin 0.9 g/dL (0.8-1.7); Protein, Total 6.2 g/dL (6.1-8.1)
--- NOTE | 2018-11-07 11:11 | ONC.SCHED ---
DARATUMUMAB [id number]; VELCADE [id number] [facility] [place]
[2018-11-07 15:00] LABS: Add Manual Diff / Slide Review NO; Basophils Absolute Auto 0 /uL (0-100); Basophils Percent Auto 0.8 % (0-2); Eosinophils Absolute Auto 100 /uL (0-450); Eosinophils Percent Auto 2.8 % (2-4); Hematocrit 35.9 % (36-46); Hemoglobin 11.7 g/dL (12.0-16.0); Lymphocytes Absolute Auto 800 /uL (1100-4500); Lymphocytes Percent Auto 24.9 % (25-40); Mean Corpuscular HGB Conc 32.5 % (30-36); Mean Corpuscular Hemoglobin 33.3 PG (26-34); Mean Corpuscular Volume 102.2 fL (80-100); Monocytes Absolute Auto 400 /uL (0-900); Monocytes Percent Auto 11.5 % (3-14); Neutrophils Absolute Auto 2000 /uL (1500-7000); Platelet Count 180 X10^3/uL (150-400); Red Blood Cell Count 3.51 X10^6/uL (4.0-5.2); Red Cell Distribution Width 15.9 % (11.6-14.8); White Blood Cell Count 3.3 X10^3/uL (4.5-11.0)
[2018-11-07 15:13] LABS: Alanine Aminotransferase 19 IU/L (9-52); Albumin 3.9 g/dL (3.5-5.0); Albumin Globulin Ratio 1.4 (1.0-2.8); Alkaline Phosphatase 76 U/L (38-126); Aspartate Aminotransferase 18 IU/L (14-36); Bilirubin Total 0.4 mg/dL (0.2-1.3); Blood Urea Nitrogen 30 mg/dL (7-17); Calcium 8.8 mg/dL (8.4-10.2); Carbon Dioxide 25 mmol/L (22-32); Chloride 106 mmol/L (98-107); Estimated Glomerular Filt Rate 53.3 mL/min (>60); Globulin 2.8 g/dL (1.7-4.1); Glucose 135 mg/dL (80-110); HEMOLYSIS < 15 (0-50); Potassium 4.9 mmol/L (3.4-5.1); Sodium 140 mmol/L (137-145); Total Protein 6.7 g/dL (6.3-8.2)
--- NOTE | 2018-11-07 16:27 | ONC.APRN.PN ---
PN -Subjective Interval history: 78 year-old female with significant medical comorbidities and multiple hospitalizations and longterm facility stays over the last 24 months. She is followed in this clinic for multiple myeloma and renal cell carcinoma. She had been on revlimid 15 mg daily 3 weeks on and 1 week off. She is not using dexamethasone. She presented with acute onset shortness of breath on 08/13/2018. She was hospitalized at [facility] and CT scan showed saddle pulmonary embolism. She received lovenox and then Eliquis 5 mg bid since. After admission, she stopped taking revlimid. She then was discharged to [facility]. Pt remains at [facility], she continues to require a significant amount of assistance. She reports overall she is feeling well however she is unable to perform ADLs. We have sent a referral to [facility] Dr Keating for consideration of right hip radiation noting in imaging pt is high risk for pathologic fracture. Patient was scheduled for chemotherapy counseling today however at the outset of the visit she asked if I could once again explain her disease. Patient goes on to report she specifically asked oncologist Dr Page for the new medicine I saw on TV which isnt like regular chemotherapy. Pt is unable to recall the name, I went over a few of them with her and she said none of them were the medication she had requested. Pt goes on to states I do not want IV chemotherapy. She was under the impression her MM is well controlled however I reviewed bone marrow bx, blood work, and PET scan all of which suggest some disease progression. She has been off Revlimid since December of last year due to recurrent serious illnesses requiring frequent hospitalizations and SNF stays. Today pt is not interested in the regime of dexamethasone, velcade, and daratumumab as outlined by Dr Page. Oncological history Ms. Lorraine Parra is an 78 year old female with prolonged history of multiple myeloma. 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 0n 04/04/2014, she was seen by Dr. Bose. She was started treatment with Revlimid/Dex. And later, she was transitioned to maintenance revlimid only regimen. Throughout her disease course, she has been followed at [facility] and has received multiple brief courses of palliative radiation therapy for the pain control. It is summarized as follows. She developed new right upper back pain in 01/2014. A new expansile lytic lesions seen on 6th rib measuring 1.6 cm associated with subacute pathological fracure, multiple bilateral small lytic lesions of the ribs. A lytic lesion 2.2 cm in right posterior vertebral body and pedicle of T11 and a large lytic lesion in the body of L2. She underwent XRT 06/05/2014 to 06/19/2014 to right 6 th rib, left posterior 9th rib, T11 through L1 to L4, left illium and C5 through C7, 3000 cgy in 10 fractions. And X-ray 09/26/2014 right humerus showed osteolytic process invilving the proximal diaphysis of the right humerus, CT head 10/08/2018: lytic lesions involving the right frontal calvarium. He received XRT 10/31/2014 to 11/13/2014 to right humerus and shoulder completed Nov 13, 2014. In April 2015 due to increasing mid back pain patient underwent MRI of the spine that identified 2 areas of abnormal marrow signal, both centered to the right of midline involving T7 and T12. Patient was again treated with a brief course of radiation therapy from 06/10/2015 through 06/21/2015. She received 20 Gy in 2.5 Gy daily fractions for 2 weeks. Due to increasing right humeral pain, patient received radiation therapy from 07/04/2015 through 07/19/2015, 18 Gy in 1.8 Gy daily fractions over 10 elapsed treatments. Due to increasing back pain patient again received another brief course of low-dose radiotherapy from 08/19/2015 through 08/23/2015. She then had another course of palliative irradiation to vertebra TS 9 through L1 from 01/14/2016 through 01/28/2016. On January 15, 2018, she presented at ER on transfer from [facility] for onset of very severe pain in the right ear and mastoid region accompanied by delirium. MRI imaging noted a lytic lesion in the right mastoid and patient received brief radiation therapy to that area. On 09/29/2018, she underwent BMA/Bx: Mildly hypercellular marrow for age (estimated 50% cellularity) with involvement of a kappa restricted plasma cell population, adequate trilineage hematopoiesis with relative erythroid hyperplasia and no significant morphologic dysplasia, flow cytometry showed no abnormal plasma cell population, no abnormal B-cell or T-cell population and no abnormal blast or myeloid cell population. Cytogenetics are normal female 44 XX[19]. The abnormal plasma cell population exhibits a patchy distribution in the marrow predominantly forming confluent moderately-sized aggregate/sheets of abnormal plasma cells that are scattered throughout the marrow. No discrete atypical plasma cell aggregates are seen in the core biopsy. By immunohistochemistry, the abnormal plasma cells comprise an estimated 10-15% of the total marrow cellularity and they are kappa light chain restricted with aberrant coexpression of CD56. In the background, there is an additional plasma cell subset that appears polytypic, which is relatively evenly-distributed in the marrow and compresses an additional 2-3% of the total marrow cells. Overall these findings indicate persistent or recurrent marrow involvement by the patient's previously-characterized kappa restricted plasma cell neoplasm. Of note, she had right nephrectomy 09/2008 for renal cell carcinoma, high grade papillary, with chronic renal insufficiency. Home Medications and Allergies Home Medications Medication Instructions Recorded Confirmed Type gabapentin 600 mg PO TID #0 12/01/11 11/04/18 History cholecalciferol (vitamin D3) 2,000 iu PO QDAY #0 07/22/16 11/07/18 History [Vitamin D3] ipratropium bromide 2 spray INH BID #0 07/27/16 11/04/18 History lactulose 10 gm PO BID #360 ml 08/19/16 11/04/18 Rx [ZOMETA] QMONTH #0 04/12/17 History glipizide 5 mg PO AMAC #0 04/19/17 11/04/18 History lidocaine-prilocaine 1 don TOPICAL PRN PRN #30 gm 05/05/17 11/04/18 Rx multivitamin [Multiple Vitamins] 1 tab PO QDAY #0 05/12/17 11/04/18 History eszopiclone 3 mg PO HS #0 01/14/18 11/04/18 History primidone [Mysoline] 100 mg PO DAILY #0 01/14/18 11/07/18 History propranolol 80 mg PO DAILY #0 01/14/18 11/07/18 History albuterol sulfate 1 puff INH QID #0 02/12/18 11/07/18 History clobetasol-emollient 0.05 pump TOPICAL Q8HP #0 02/12/18 11/07/18 History diphenoxylate-atropine 1 tab PO BID #0 02/12/18 11/04/18 History guaifenesin 600 mg PO BID #0 02/12/18 11/04/18 History ondansetron [Zofran ODT] 8 mg PO Q8HP PRN #0 02/12/18 11/04/18 History Ketoconazole 1 don TOPICAL BID 03/30/18 11/04/18 History levothyroxine 150 mcg PO DAILY 03/30/18 11/07/18 History loperamide 2 mg PO Q2-4H PRN 03/30/18 11/04/18 History melatonin 1 mg PO BEDTIME PRN 03/30/18 11/04/18 History omeprazole 40 mg PO DAILY 03/30/18 11/07/18 History sertraline 100 mg PO DAILY 03/30/18 11/07/18 History apixaban 5 mg PO DAILY 09/23/18 11/07/18 History acetaminophen [Tylenol Extra 650 mg PO TID PRN #60 tab 09/29/18 11/07/18 Rx Strength] Saccharomyces boulardii [Florastor] 250 mg PO BID 11/07/18 11/07/18 History oxycodone-acetaminophen 1 tab PO Q6H PRN 11/07/18 11/07/18 History Allergies Allergy/AdvReac Type Severity Reaction Status Date / Time morphine Allergy Severe STROKE Verified 04/20/18 13:22 LIKE SYMPTOMS levofloxacin Allergy Intermediate HIVES Verified 04/20/18 13:22 adhesive [ADHESIVE] Allergy Mild BLISTERS Verified 04/20/18 13:22 celecoxib Allergy Mild RASH, Verified 04/20/18 13:22 SMALL BLISTERS, NAUSEA Penicillins Allergy Mild RASH Verified 04/20/18 13:22 phenazopyridine Allergy Mild VOMITING Verified 04/20/18 13:22 [From PYRIDIUM] Sulfa (Sulfonamide Allergy Mild BLISTERS Verified 04/20/18 13:22 Antibiotics) lactose [LACTOSE] Allergy Unknown Verified 04/20/18 13:22 Exam - Constitutional positive no acute distress Results - Labs Laboratory Last Values WBC 3.3 X10^3/uL (4.5-11.0) L 11/07/18 14:34 RBC 3.51 X10^6/uL (4.0-5.2) L 11/07/18 14:34 Hgb 11.7 g/dL (12.0-16.0) L 11/07/18 14:34 Hct 35.9 % (36-46) L 11/07/18 14:34 MCV 102.2 fL (80-100) H 11/07/18 14:34 MCH 33.3 PG (26-34) 11/07/18 14:34 MCHC 32.5 % (30-36) 11/07/18 14:34 RDW 15.9 % (11.6-14.8) H 11/07/18 14:34 Plt Count 180 X10^3/uL (150-400) 11/07/18 14:34 Neut % (Auto) 60.0 % (50-75) 11/07/18 14:34 Lymph % (Auto) 24.9 % (25-40) L 11/07/18 14:34 [place] % (Auto) 11.5 % (3-14) 11/07/18 14:34 Eos % (Auto) 2.8 % (2-4) 11/07/18 14:34 Baso % (Auto) 0.8 % (0-2) 11/07/18 14:34 Neut # (Auto) 2000 /uL (8098-1588) 11/07/18 14:34 Lymph # (Auto) 800 /uL (5536-2336) L 11/07/18 14:34 [place] # (Auto) 400 /uL (0-900) 11/07/18 14:34 Eos # (Auto) 100 /uL (0-450) 11/07/18 14:34 Baso # (Auto) 0 /uL (0-100) 11/07/18 14:34 Total Counted 50 07/07/18 11:12 Seg Neutrophils % 52.0 % (38-70) 07/07/18 11:12 Lymphocytes % (Manual) 22.0 % (25-45) L 07/07/18 11:12 Monocytes % (Manual) 2.0 % (2-11) 07/07/18 11:12 Eosinophils % (Manual) 22.0 % (2-4) H 07/07/18 11:12 Basophils % (Manual) 2.0 % (0-1) H 07/07/18 11:12 Neutrophils # (Manual) 1664 /uL (0684-0654) L 07/07/18 11:12 RBC Morphology Not Reportable 07/07/18 11:12 Anisocytosis 1+ H 07/07/18 11:12 Sodium 140 mmol/L (137-145) 11/07/18 14:34 Potassium 4.9 mmol/L (3.4-5.1) 11/07/18 14:34 Chloride 106 mmol/L (98-107) 11/07/18 14:34 Carbon Dioxide 25 mmol/L (22-32) 11/07/18 14:34 BUN 30 mg/dL (7-17) H 11/07/18 14:34 Creatinine 1.00 mg/dL (0.52-1.04) 11/07/18 14:34 Estimated GFR 53.3 mL/min (>60) L 11/07/18 14:34 BUN/Creatinine Ratio 30.0 (6-22) H 11/07/18 14:34 Glucose 135 mg/dL (80-110) H 11/07/18 14:34 Calcium 8.8 mg/dL (8.4-10.2) 11/07/18 14:34 Total Bilirubin 0.4 mg/dL (0.2-1.3) 11/07/18 14:34 AST 18 IU/L (14-36) 11/07/18 14:34 ALT 19 IU/L (9-52) 11/07/18 14:34 Alkaline Phosphatase 76 U/L (38-126) 11/07/18 14:34 Lactate Dehydrogenase 469 U/L (313-618) 11/01/18 15:40 Serum Total Protein 6.2 g/dL (6.1-8.1) 11/01/18 15:40 Total Protein 6.7 g/dL (6.3-8.2) 11/07/18 14:34 Albumin 3.9 g/dL (3.5-5.0) 11/07/18 14:34 Globulin 2.8 g/dL (1.7-4.1) 11/07/18 14:34 Albumin/Globulin Ratio 1.4 (1.0-2.8) 11/07/18 14:34 Shmtg-9-Vpnncyuaz 0.3 g/dL (0.2-0.3) 11/01/18 15:40 Upihy-6-Uzmqotijt 0.7 g/dL (0.5-0.9) 11/01/18 15:40 Svzb-3-Cnlmpxml 0.4 g/dL (0.4-0.6) 11/01/18 15:40 Ncit-7-Usxsqycn 0.3 g/dL (0.2-0.5) 11/01/18 15:40 Qrcw-2-Hcwmqbrmfjwyi 5.38 mg/L (< 2.52) H 11/01/18 15:40 Gamma Globulins 0.9 g/dL (0.8-1.7) 11/01/18 15:40 Abnorm Protein Band 1 Not Reportable 11/01/18 15:40 Abnorm Protein Band 2 Not Reportable 11/01/18 15:40 Abn Gamma Band 3 Serum Not Reportable 11/01/18 15:40 PEP Comment See note 11/01/18 15:40 IgG, Serum (MS) 802 mg/dL (694-1618) 11/01/18 15:40 IgA 169 mg/dL (81-463) 11/01/18 15:40 IgM 45 mg/dL (48-271) L 11/01/18 15:40 DANDRE & SPEP Interp See note 09/09/18 11:18 Free [place] Light Chains 728.0 mg/L (3.3-19.4) H 11/01/18 15:40 Free [place] Light Chain 15.0 mg/L (5.7-26.3) 11/01/18 15:40 Free [place]/Lambda Ratio 48.47 (0.26-1.65) H 11/01/18 15:40 Blood Type A Positive 11/07/18 14:35 Antibody Screen Negative 11/07/18 14:35 - Imaging Additional studies: Procedures Biopsy of bone, other bones (04/23/14) Excision of lesion of other soft tissue (01/01/12) Inspection of Upper Intestinal Tract, Via Natural or Artificial Opening Endoscopic (01/30/16) Assessment and Plan (1) Multiple myeloma Problem details: 1. 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 2. She has had numerous short courses of radaition therapyh for pain control (see HPI) 3. She received Revlimid/Dex in 2013 and later transitioned to Revlimid only maintenance. Assessment: Dr Brown note dated 11/04/2018: I reviewed the PET scan results with the patient. PET scan showed multiple bone lesions suggestive of progression of the underlying known multiple myeloma. More specifically the PET scan showed that the right femoral head lytic lesion at risk of pathological fracture. Left iliac lesion was also noted. As well as in numerable lytic lesions involving axial and appendicular skeletons. Serum free light chain concentration also has significantly increased. Given the above, I think patient has underlying multiple myeloma has relapsed and has been progressing. I would recommend proceed to second line treatment with daratumumab/Velcade/dexamethasone. Pt remains at SNF At pt visit today she reports she was unaware she had relapsed MM, she was under the impression her disease was controlled. She goes on to state she was unaware she would be starting a new chemo regime. I reviewed bone marrow bx, blood work, and imaging with the pt which unfortunately demonstrate disease progression. Pt states she has been off Revlimid since December 2017 due to recurrent illnesses and hospital and SNF stays. I asked pt if she has family or friend who can join her at future appointments, I shared with her my concern she is having difficulty processing the information we are sharing with her. Unfortunately the pt states her daughter used to join her for visits however they are now not on good terms. At this point we will reschedule with Dr Page per pts request. (2) Pulmonary embolus Assessment and Plan: Patient underwent lower extremity ultrasound study on 09/23/2018. No evidence of DVT found. The emboli source of the large bilateral saddle pulmonary embolism is not clear at this moment. For now, will continue Apixaban 5 mg bid while pt is at SNF. (3) History of renal cell carcinoma Problem details: She had right nephrectomy 09/2008 for renal cell carcinoma, high grade, papillary, with chronic renal insufficiency. Assessment and plan: Patient has a remote history of right renal cell carcinoma status post right radical nephrectomy. The current occurrence of pulmonary embolism raises the possibility that there may be recurrence of her known renal cell carcinoma. I will continue surveillance. - Time Spent with Patient 45 mins face to face with pt 5 mins coordination of care with [employer]ER 5 mins dictation
--- NOTE | 2018-11-07 16:35 | P.PNONC_ITS ---
PN -Subjective Interval history: 78 year-old female with significant medical comorbidities and multiple hospitalizations and snf facility stays over the last 24 months. She is followed in this clinic for multiple myeloma and renal cell carcinoma. She had been on revlimid 15 mg daily 3 weeks on and 1 week off. She is not using dexamethasone. She presented with acute onset shortness of breath on 08/13. She was hospitalized at [facility] and CT scan showed saddle pulmonary embolism. She received lovenox and then Eliquis 5 mg bid since. After admission, she stopped taking revlimid. She then was discharged to [facility]. Pt remains at [facility], she continues to require a significant amount of assistance. She reports overall she is feeling well however she is unable to perform ADLs. We have sent a referral to [facility] Dr Keating for consideration of right hip radiation noting in imaging pt is high risk for pathologic fracture. Patient was scheduled for chemotherapy counseling today however at the outset of the visit she asked if I could once again explain her disease. Patient goes on to report she specifically asked oncologist Dr Page for the new medicine I saw on TV which isnt like regular chemotherapy. Pt is unable to recall the name, I went over a few of them with her and she said none of them were the medication she had requested. Pt goes on to states I do not want IV chemotherapy. She was under the impression her MM is well controlled however I reviewed bone marrow bx, blood work, and PET scan all of which suggest some disease progression. She has been off Revlimid since December of last year due to recurrent serious illnesses requiring frequent hospitalizations and SNF stays. Today pt is not interested in the regime of dexamethasone, velcade, and daratumumab as outlined by Dr Page. Oncological history Ms. Lorraine Parra is an 78 year old female with prolonged history of multiple myeloma. 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 0n 08/2014, she was seen by Dr. Bose. She was started treatment with Revlimid/ Dex. And later, she was transitioned to maintenance revlimid only regimen. Throughout her disease course, she has been followed at [facility] and has received multiple brief courses of palliative radiation therapy for the pain control. It is summarized as follows. She developed new right upper back pain in 01/2014. A new expansile lytic lesions seen on 6th rib measuring 1.6 cm associated with subacute pathological fracure, multiple bilateral small lytic lesions of the ribs. A lytic lesion 2.2 cm in right posterior vertebral body and pedicle of T11 and a large lytic lesion in the body of L2. She underwent XRT 06/05/2014 to 06/19/2014 to right 6 th rib, left posterior 9th rib, T11 through L1 to L4, left illium and C5 through C7, 3000 cgy in 10 fractions. And X-ray 09/26/2014 right humerus showed osteolytic process invilving the proximal diaphysis of the right humerus, CT head 10/08/2018: lytic lesions involving the right frontal calvarium. He received XRT 10/31/2014 to 11/13/2014 to right humerus and shoulder completed Nov 13, 2014. In April 2015 due to increasing mid back pain patient underwent MRI of the spine that identified 2 areas of abnormal marrow signal, both centered to the right of midline involving T7 and T12. Patient was again treated with a brief course of radiation therapy from 06/10/2015 through 06/21/2015. She received 20 Gy in 2.5 Gy daily fractions for 2 weeks. Due to increasing right humeral pain, patient received radiation therapy from 07/2015 through 07/19/2015, 18 Gy in 1.8 Gy daily fractions over 10 elapsed treatments. Due to increasing back pain patient again received another brief course of low- dose radiotherapy from 08/19/2015 through 08/23/2015. She then had another course of palliative irradiation to vertebra TS 9 through L1 from 01/14/2016 through 01/28/2016. On January 15, 2018, she presented at ER on transfer from [facility] for onset of very severe pain in the right ear and mastoid region accompanied by delirium. MRI imaging noted a lytic lesion in the right mastoid and patient received brief radiation therapy to that area. On 09/29/2018, she underwent BMA/Bx: Mildly hypercellular marrow for age ( estimated 50% cellularity) with involvement of a kappa restricted plasma cell population, adequate trilineage hematopoiesis with relative erythroid hyperplasia and no significant morphologic dysplasia, flow cytometry showed no abnormal plasma cell population, no abnormal B-cell or T-cell population and no abnormal blast or myeloid cell population. Cytogenetics are normal female 44 XX [19]. The abnormal plasma cell population exhibits a patchy distribution in the marrow predominantly forming confluent moderately-sized aggregate/sheets of abnormal plasma cells that are scattered throughout the marrow. No discrete atypical plasma cell aggregates are seen in the core biopsy. By immunohistochemistry, the abnormal plasma cells comprise an estimated 10-15% of the total marrow cellularity and they are kappa light chain restricted with aberrant coexpression of CD56. In the background, there is an additional plasma cell subset that appears polytypic, which is relatively evenly- distributed in the marrow and compresses an additional 2-3% of the total marrow cells. Overall these findings indicate persistent or recurrent marrow involvement by the patient's previously-characterized kappa restricted plasma cell neoplasm. Of note, she had right nephrectomy 09/2008 for renal cell carcinoma, high grade papillary, with chronic renal insufficiency. Home Medications and Allergies Home Medications Medication Instructions Recorded Confirmed Type gabapentin 600 mg PO TID #0 12/01/11 11/04/18 History cholecalciferol (vitamin D3) 2,000 iu PO QDAY #0 07/22/16 11/07/18 History [Vitamin D3] ipratropium bromide 2 spray INH BID #0 07/27/16 11/04/18 History lactulose 10 gm PO BID #360 ml 08/19/16 11/04/18 Rx [ZOMETA] QMONTH #0 04/12/17 History glipizide 5 mg PO AMAC #0 04/19/17 11/04/18 History lidocaine-prilocaine 1 don TOPICAL PRN PRN #30 gm 05/05/17 11/04/18 Rx multivitamin [Multiple Vitamins] 1 tab PO QDAY #0 05/12/17 11/04/18 History eszopiclone 3 mg PO HS #0 01/14/18 11/04/18 History primidone [Mysoline] 100 mg PO DAILY #0 01/14/18 11/07/18 History propranolol 80 mg PO DAILY #0 01/14/18 11/07/18 History albuterol sulfate 1 puff INH QID #0 02/12/18 11/07/18 History clobetasol-emollient 0.05 pump TOPICAL Q8HP #0 02/12/18 11/07/18 History diphenoxylate-atropine 1 tab PO BID #0 02/12/18 11/04/18 History guaifenesin 600 mg PO BID #0 02/12/18 11/04/18 History ondansetron [Zofran ODT] 8 mg PO Q8HP PRN #0 02/12/18 11/04/18 History Ketoconazole 1 don TOPICAL BID 03/30/18 11/04/18 History levothyroxine 150 mcg PO DAILY 03/30/18 11/07/18 History loperamide 2 mg PO Q2-4H PRN 03/30/18 11/04/18 History melatonin 1 mg PO BEDTIME PRN 03/30/18 11/04/18 History omeprazole 40 mg PO DAILY 03/30/18 11/07/18 History sertraline 100 mg PO DAILY 03/30/18 11/07/18 History apixaban 5 mg PO DAILY 09/23/18 11/07/18 History acetaminophen [Tylenol Extra 650 mg PO TID PRN #60 tab 09/29/18 11/07/18 Rx Strength] Saccharomyces boulardii [Florastor] 250 mg PO BID 11/07/18 11/07/18 History oxycodone-acetaminophen 1 tab PO Q6H PRN 11/07/18 11/07/18 History Allergies Allergy/AdvReac Type Severity Reaction Status Date / Time morphine Allergy Severe STROKE Verified 04/20/18 13:22 LIKE SYMPTOMS levofloxacin Allergy Intermediate HIVES Verified 04/20/18 13:22 adhesive [ADHESIVE] Allergy Mild BLISTERS Verified 04/20/18 13:22 celecoxib Allergy Mild RASH, Verified 04/20/18 13:22 SMALL BLISTERS, NAUSEA Penicillins Allergy Mild RASH Verified 04/20/18 13:22 phenazopyridine Allergy Mild VOMITING Verified 04/20/18 13:22 [From PYRIDIUM] Sulfa (Sulfonamide Allergy Mild BLISTERS Verified 04/20/18 13:22 Antibiotics) lactose [LACTOSE] Allergy Unknown Verified 04/20/18 13:22 Exam - Constitutional positive no acute distress Results - Labs Laboratory Last Values WBC 3.3 X10^3/uL (4.5-11.0) L 11/07/18 14:34 RBC 3.51 X10^6/uL (4.0-5.2) L 11/07/18 14:34 Hgb 11.7 g/dL (12.0-16.0) L 11/07/18 14:34 Hct 35.9 % (36-46) L 11/07/18 14:34 MCV 102.2 fL (80-100) H 11/07/18 14:34 MCH 33.3 PG (26-34) 11/07/18 14:34 MCHC 32.5 % (30-36) 11/07/18 14:34 RDW 15.9 % (11.6-14.8) H 11/07/18 14:34 Plt Count 180 X10^3/uL (150-400) 11/07/18 14:34 Neut % (Auto) 60.0 % (50-75) 11/07/18 14:34 Lymph % (Auto) 24.9 % (25-40) L 11/07/18 14:34 [place] % (Auto) 11.5 % (3-14) 11/07/18 14:34 Eos % (Auto) 2.8 % (2-4) 11/07/18 14:34 Baso % (Auto) 0.8 % (0-2) 11/07/18 14:34 Neut # (Auto) 2000 /uL (3717-2344) 11/07/18 14:34 Lymph # (Auto) 800 /uL (1007-5253) L 11/07/18 14:34 Lau[place] # (Auto) 400 /uL (0-900) 11/07/18 14:34 Eos # (Auto) 100 /uL (0-450) 11/07/18 14:34 Baso # (Auto) 0 /uL (0-100) 11/07/18 14:34 Total Counted 50 07/07/18 11:12 Seg Neutrophils % 52.0 % (38-70) 07/07/18 11:12 Lymphocytes % (Manual) 22.0 % (25-45) L 07/07/18 11:12 Monocytes % (Manual) 2.0 % (2-11) 07/07/18 11:12 Eosinophils % (Manual) 22.0 % (2-4) H 07/07/18 11:12 Basophils % (Manual) 2.0 % (0-1) H 07/07/18 11:12 Neutrophils # (Manual) 1664 /uL (8371-5092) L 07/07/18 11:12 RBC Morphology Not Reportable 07/07/18 11:12 Anisocytosis 1+ H 07/07/18 11:12 Sodium 140 mmol/L (137-145) 11/07/18 14:34 Potassium 4.9 mmol/L (3.4-5.1) 11/07/18 14:34 Chloride 106 mmol/L (98-107) 11/07/18 14:34 Carbon Dioxide 25 mmol/L (22-32) 11/07/18 14:34 BUN 30 mg/dL (7-17) H 11/07/18 14:34 Creatinine 1.00 mg/dL (0.52-1.04) 11/07/18 14:34 Estimated GFR 53.3 mL/min (>60) L 11/07/18 14:34 BUN/Creatinine Ratio 30.0 (6-22) H 11/07/18 14:34 Glucose 135 mg/dL (80-110) H 11/07/18 14:34 Calcium 8.8 mg/dL (8.4-10.2) 11/07/18 14:34 Total Bilirubin 0.4 mg/dL (0.2-1.3) 11/07/18 14:34 AST 18 IU/L (14-36) 11/07/18 14:34 ALT 19 IU/L (9-52) 11/07/18 14:34 Alkaline Phosphatase 76 U/L (38-126) 11/07/18 14:34 Lactate Dehydrogenase 469 U/L (313-618) 11/01/18 15:40 Serum Total Protein 6.2 g/dL (6.1-8.1) 11/01/18 15:40 Total Protein 6.7 g/dL (6.3-8.2) 11/07/18 14:34 Albumin 3.9 g/dL (3.5-5.0) 11/07/18 14:34 Globulin 2.8 g/dL (1.7-4.1) 11/07/18 14:34 Albumin/Globulin Ratio 1.4 (1.0-2.8) 11/07/18 14:34 Mlcqx-6-Sxslpsmcb 0.3 g/dL (0.2-0.3) 11/01/18 15:40 Ptjoq-3-Kgdzyrhkt 0.7 g/dL (0.5-0.9) 11/01/18 15:40 Mpcu-4-Medliaqt 0.4 g/dL (0.4-0.6) 11/01/18 15:40 Pbmi-7-Hsjcvket 0.3 g/dL (0.2-0.5) 11/01/18 15:40 Elwg-8-Llswbuiboxifn 5.38 mg/L (< 2.52) H 11/01/18 15:40 Gamma Globulins 0.9 g/dL (0.8-1.7) 11/01/18 15:40 Abnorm Protein Band 1 Not Reportable 11/01/18 15:40 Abnorm Protein Band 2 Not Reportable 11/01/18 15:40 Abn Gamma Band 3 Serum Not Reportable 11/01/18 15:40 PEP Comment See note 11/01/18 15:40 IgG, Serum (MS) 802 mg/dL (694-1618) 11/01/18 15:40 IgA 169 mg/dL (81-463) 11/01/18 15:40 IgM 45 mg/dL (48-271) L 11/01/18 15:40 DANDRE & SPEP Interp See note 09/09/18 11:18 Free Heidelberg Light Chains 728.0 mg/L (3.3-19.4) H 11/01/18 15:40 Free Lambda Light Chain 15.0 mg/L (5.7-26.3) 11/01/18 15:40 Free Heidelberg/Lambda Ratio 48.47 (0.26-1.65) H 11/01/18 15:40 Blood Type A Positive 11/07/18 14:35 Antibody Screen Negative 11/07/18 14:35 - Imaging Additional studies: Procedures Biopsy of bone, other bones (04/23/14) Excision of lesion of other soft tissue (01/01/12) Inspection of Upper Intestinal Tract, Via Natural or Artificial Opening Endoscopic (01/30/16) Assessment and Plan (1) Multiple myeloma Problem details: 1. 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 2. She has had numerous short courses of radaition therapyh for pain control ( see HPI) 3. She received Revlimid/Dex in 2013 and later transitioned to Revlimid only maintenance. Assessment: Dr Brown note dated 11/04/2018: I reviewed the PET scan results with the patient. PET scan showed multiple bone lesions suggestive of progression of the underlying known multiple myeloma. More specifically the PET scan showed that the right femoral head lytic lesion at risk of pathological fracture. Left iliac lesion was also noted. As well as in numerable lytic lesions involving axial and appendicular skeletons. Serum free light chain concentration also has significantly increased. Given the above, I think patient has underlying multiple myeloma has relapsed and has been progressing. I would recommend proceed to second line treatment with daratumumab/Velcade/dexamethasone. Pt remains at SNF At pt visit today she reports she was unaware she had relapsed MM, she was under the impression her disease was controlled. She goes on to state she was unaware she would be starting a new chemo regime. I reviewed bone marrow bx, blood work, and imaging with the pt which unfortunately demonstrate disease progression. Pt states she has been off Revlimid since December 2017 due to recurrent illnesses and hospital and SNF stays. I asked pt if she has family or friend who can join her at future appointments, I shared with her my concern she is having difficulty processing the information we are sharing with her. Unfortunately the pt states her daughter used to join her for visits however they are now not on good terms. At this point we will reschedule with Dr Page per pts request. (2) Pulmonary embolus Assessment and Plan: Patient underwent lower extremity ultrasound study on 09/23/2018. No evidence of DVT found. The emboli source of the large bilateral saddle pulmonary embolism is not clear at this moment. For now, will continue Apixaban 5 mg bid while pt is at SNF. (3) History of renal cell carcinoma Problem details: She had right nephrectomy 09/2008 for renal cell carcinoma, high grade, papillary, with chronic renal insufficiency. Assessment and plan: Patient has a remote history of right renal cell carcinoma status post right radical nephrectomy. The current occurrence of pulmonary embolism raises the possibility that there may be recurrence of her known renal cell carcinoma. I will continue surveillance. - Time Spent with Patient 45 mins face to face with pt 5 mins coordination of care with ROOFER HELPER 5 mins dictation
[2018-12-13 14:09] VITALS: BP 155/83; PULSE 74; RESP 18; TEMP 36.9; O2SAT 98
--- NOTE | 2018-12-13 15:22 | PC.NURSE ---
Dexamethasone script transmitted to [facility][Note 3] per patient request. Pomalyst script to be filled by [facility]. Joi Gaspar RP
[2018-12-13 15:30] LABS: Add Manual Diff / Slide Review NO; Basophils Absolute Auto 0 /uL (0-100); Basophils Percent Auto 1.2 % (0-2); Eosinophils Absolute Auto 100 /uL (0-450); Eosinophils Percent Auto 2.5 % (2-4); Hemoglobin 11.7 g/dL (12.0-16.0); Lymphocytes Absolute Auto 700 /uL (1100-4500); Lymphocytes Percent Auto 21.8 % (25-40); Mean Corpuscular HGB Conc 32.6 % (30-36); Mean Corpuscular Hemoglobin 32.4 PG (26-34); Mean Corpuscular Volume 99.2 fL (80-100); Monocytes Absolute Auto 400 /uL (0-900); Monocytes Percent Auto 11.6 % (3-14); Neutrophils Absolute Auto 1900 /uL (1500-7000); Neutrophils Percent Auto 62.9 % (50-75); Platelet Count 162 X10^3/uL (150-400); Red Blood Cell Count 3.62 X10^6/uL (4.0-5.2); Red Cell Distribution Width 14.7 % (11.6-14.8); White Blood Cell Count 3.1 X10^3/uL (4.5-11.0)
[2018-12-13 15:42] LABS: Alanine Aminotransferase 24 IU/L (9-52); Albumin 3.9 g/dL (3.5-5.0); Albumin Globulin Ratio 1.4 (1.0-2.8); Alkaline Phosphatase 88 U/L (38-126); Aspartate Aminotransferase 20 IU/L (14-36); Bilirubin Total 0.3 mg/dL (0.2-1.3); Blood Urea Nitrogen 32 mg/dL (7-17); Calcium 8.8 mg/dL (8.4-10.2); Carbon Dioxide 25 mmol/L (22-32); Chloride 103 mmol/L (98-107); Estimated Glomerular Filt Rate 53.3 mL/min (>60); Globulin 2.8 g/dL (1.7-4.1); Glucose 138 mg/dL (80-110); HEMOLYSIS < 15 (0-50); Potassium 4.5 mmol/L (3.4-5.1); Sodium 137 mmol/L (137-145); Total Protein 6.7 g/dL (6.3-8.2)
--- NOTE | 2018-12-13 17:55 | ONC.PN ---
PN -Subjective Interval history: Diagnosis: Multiple myeloma Previous treatment: 1. 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 Progression to multiple myeloma started treatment with Revlimid and dexamethasone in March 2014. She later transitioned to Revlimid only at a dose of 15 mg/day. 3. Radiation therapy to the 6th rib, T11-L2, cervical spine and left ilium in May 2014 4. Radiation therapy to the right humerus finishing in October 2014 5. Radiation therapy to T7 and T12 in May 2015 6. Another course of radiation to the right humerus in June 2015 7. Another course of radiation to the spine from T9 through L1 in January 2016 8. 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 Radiation therapy to the right hip in October 2018. Interval history: The patient is an 78-year-old woman with a longstanding history of multiple myeloma. She has previously been treated with Revlimid and had been stable for many years although did have multiple courses of radiation to areas of progression over that time. She previously has been on Zometa but can't remember how long ago at stopped. She had a recent restaging evaluation showing evidence of progression in the right hip with high risk for impending fracture that was radiated. Her serum free light chains have shown a steady increase in the kappa light chains, and a bone marrow biopsy in September showed 10-15% of the total marrow cellularity was plasma cells. She had been scheduled to start the therapy for progressive disease with Velcade, dexamethasone and daratumumab. She was quite resistant to the IV therapy and has not gone ahead with that. She tells me that she has been off of her Revlimid since December of last year when her grandson . She relates that she had been tolerating the Revlimid without any difficulty. Review of her pharmacy records shows that she has not had a refill of her Revlimid since July of 2018. She had been on it for about 4 months continuously at that time. Apparently a cot stopped when she was hospitalized for a pulmonary embolus. It has not yet been restarted. Today, she notes that the pain in her hip as largely improved. She does have some pain in her back which has been chronic. She also notes discomfort in the right temporal area that is been present for several years. She notes that her appetite has been improving. She denies any nausea or vomiting. No fevers chills or sweats. She does have some neuropathy in her feet. Of note, she had right nephrectomy 09/2008 for renal cell carcinoma, high grade papillary, with chronic renal insufficiency. - Additional ROS All systems PM: reviewed and no additional remarkable complaints except as stated (She has had some memory problems. She denies any fevers or chills. She is not having any shortness of breath or chest pain. Her appetite has been improving. She denies any diarrhea or skin rash.) Home Medications and Allergies Home Medications Medication Instructions Recorded Confirmed Type gabapentin 600 mg PO TID #0 12/01/11 11/04/18 History cholecalciferol (vitamin D3) 2,000 iu PO QDAY #0 07/22/16 11/07/18 History [Vitamin D3] ipratropium bromide 2 spray INH BID #0 07/27/16 11/04/18 History lactulose 10 gm PO BID #360 ml 08/19/16 11/04/18 Rx [ZOMETA] QMONTH #0 04/12/17 History glipizide 5 mg PO AMAC #0 04/19/17 11/04/18 History lidocaine-prilocaine 1 don TOPICAL PRN PRN #30 gm 05/05/17 11/04/18 Rx multivitamin [Multiple Vitamins] 1 tab PO QDAY #0 05/12/17 11/04/18 History eszopiclone 3 mg PO HS #0 01/14/18 11/04/18 History primidone [Mysoline] 100 mg PO DAILY #0 01/14/18 11/07/18 History propranolol 80 mg PO DAILY #0 01/14/18 11/07/18 History albuterol sulfate 1 puff INH QID #0 02/12/18 11/07/18 History clobetasol-emollient 0.05 pump TOPICAL Q8HP #0 02/12/18 11/07/18 History diphenoxylate-atropine 1 tab PO BID #0 02/12/18 11/04/18 History guaifenesin 600 mg PO BID #0 02/12/18 11/04/18 History ondansetron [Zofran ODT] 8 mg PO Q8HP PRN #0 02/12/18 11/04/18 History Ketoconazole 1 don TOPICAL BID 03/30/18 11/04/18 History levothyroxine 150 mcg PO DAILY 03/30/18 11/07/18 History loperamide 2 mg PO Q2-4H PRN 03/30/18 11/04/18 History melatonin 1 mg PO BEDTIME PRN 03/30/18 11/04/18 History omeprazole 40 mg PO DAILY 03/30/18 11/07/18 History sertraline 100 mg PO DAILY 03/30/18 11/07/18 History apixaban 5 mg PO DAILY 09/23/18 11/07/18 History acetaminophen [Tylenol Extra 650 mg PO TID PRN #60 tab 09/29/18 11/07/18 Rx Strength] Saccharomyces boulardii [Florastor] 250 mg PO BID 11/07/18 11/07/18 History oxycodone-acetaminophen 1 tab PO Q6H PRN 11/07/18 11/07/18 History dexamethasone 20 mg PO WEEKLY 28 Days #40 tab 12/13/18 Rx pomalidomide 2 mg PO DAILY 21 Days #21 cap 12/13/18 Rx Allergies Allergy/AdvReac Type Severity Reaction Status Date / Time morphine Allergy Severe STROKE Verified 04/20/18 13:22 LIKE SYMPTOMS levofloxacin Allergy Intermediate HIVES Verified 04/20/18 13:22 adhesive [ADHESIVE] Allergy Mild BLISTERS Verified 04/20/18 13:22 celecoxib Allergy Mild RASH, Verified 04/20/18 13:22 SMALL BLISTERS, NAUSEA Penicillins Allergy Mild RASH Verified 04/20/18 13:22 phenazopyridine Allergy Mild VOMITING Verified 04/20/18 13:22 [From PYRIDIUM] Sulfa (Sulfonamide Allergy Mild BLISTERS Verified 04/20/18 13:22 Antibiotics) lactose [LACTOSE] Allergy Unknown Verified 04/20/18 13:22 Exam - Constitutional positive no acute distress, positive obese, positive chronically ill appearing - Routine HEENT Exam Head: Present: normocephalic, atraumatic Eye: Present: EOMI, PERRL. Absent: conjunctival icterus, scleral injection ENT: Present: mucous membranes moist, oropharynx clear - Routine Neck Exam Present: supple. Absent: lymphadenopathy, thyromegaly - Routine Respiratory Exam Present: decreased breath sounds. Absent: rales, wheezes - Routine Cardiovascular Exam Present: RRR, S1, S2. Absent: murmur - Routine Abdominal Exam Present: soft, normoactive bowel sounds. Absent: tenderness, organomegaly - Routine Extremities Exam Absent: cyanosis, clubbing, edema - Routine Back/Spine Exam Back/Spine: Absent: vertebral tenderness - Routine Skin Exam Present: intact. Absent: petechiae, rash - Routine Neurological Exam Present: alert, oriented X3 - Routine Psychiatric Exam Present: normal affect, normal thought process Results - Labs Laboratory Last Values WBC 3.1 X10^3/uL (4.5-11.0) L 12/13/18 15:13 RBC 3.62 X10^6/uL (4.0-5.2) L 12/13/18 15:13 Hgb 11.7 g/dL (12.0-16.0) L 12/13/18 15:13 Hct 36.0 % (36-46) 12/13/18 15:13 MCV 99.2 fL (80-100) 12/13/18 15:13 MCH 32.4 PG (26-34) 12/13/18 15:13 MCHC 32.6 % (30-36) 12/13/18 15:13 RDW 14.7 % (11.6-14.8) 12/13/18 15:13 Plt Count 162 X10^3/uL (150-400) 12/13/18 15:13 Neut % (Auto) 62.9 % (50-75) 12/13/18 15:13 Lymph % (Auto) 21.8 % (25-40) L 12/13/18 15:13 [place] % (Auto) 11.6 % (3-14) 12/13/18 15:13 Eos % (Auto) 2.5 % (2-4) 12/13/18 15:13 Baso % (Auto) 1.2 % (0-2) 12/13/18 15:13 Neut # (Auto) 1900 /uL (6166-1971) 12/13/18 15:13 Lymph # (Auto) 700 /uL (0013-2216) L 12/13/18 15:13 [place] # (Auto) 400 /uL (0-900) 12/13/18 15:13 Eos # (Auto) 100 /uL (0-450) 12/13/18 15:13 Baso # (Auto) 0 /uL (0-100) 12/13/18 15:13 Total Counted 50 07/07/18 11:12 Seg Neutrophils % 52.0 % (38-70) 07/07/18 11:12 Lymphocytes % (Manual) 22.0 % (25-45) L 07/07/18 11:12 Monocytes % (Manual) 2.0 % (2-11) 07/07/18 11:12 Eosinophils % (Manual) 22.0 % (2-4) H 07/07/18 11:12 Basophils % (Manual) 2.0 % (0-1) H 07/07/18 11:12 Neutrophils # (Manual) 1664 /uL (7962-1926) L 07/07/18 11:12 RBC Morphology Not Reportable 07/07/18 11:12 Anisocytosis 1+ H 07/07/18 11:12 Sodium 137 mmol/L (137-145) 12/13/18 15:13 Potassium 4.5 mmol/L (3.4-5.1) 12/13/18 15:13 Chloride 103 mmol/L (98-107) 12/13/18 15:13 Carbon Dioxide 25 mmol/L (22-32) 12/13/18 15:13 BUN 32 mg/dL (7-17) H 12/13/18 15:13 Creatinine 1.00 mg/dL (0.52-1.04) 12/13/18 15:13 Estimated GFR 53.3 mL/min (>60) L 12/13/18 15:13 BUN/Creatinine Ratio 32.0 (6-22) H 12/13/18 15:13 Glucose 138 mg/dL (80-110) H 12/13/18 15:13 Calcium 8.8 mg/dL (8.4-10.2) 12/13/18 15:13 Total Bilirubin 0.3 mg/dL (0.2-1.3) 12/13/18 15:13 AST 20 IU/L (14-36) 12/13/18 15:13 ALT 24 IU/L (9-52) 12/13/18 15:13 Alkaline Phosphatase 88 U/L (38-126) 12/13/18 15:13 Lactate Dehydrogenase 469 U/L (313-618) 11/01/18 15:40 Serum Total Protein 6.2 g/dL (6.1-8.1) 11/01/18 15:40 Total Protein 6.7 g/dL (6.3-8.2) 12/13/18 15:13 Albumin 3.9 g/dL (3.5-5.0) 12/13/18 15:13 Globulin 2.8 g/dL (1.7-4.1) 12/13/18 15:13 Albumin/Globulin Ratio 1.4 (1.0-2.8) 12/13/18 15:13 Bvtdn-7-Nvopiixrx 0.3 g/dL (0.2-0.3) 11/01/18 15:40 Cxzvr-2-Zdylbcogz 0.7 g/dL (0.5-0.9) 11/01/18 15:40 Akzh-6-Hluzouoe 0.4 g/dL (0.4-0.6) 11/01/18 15:40 Nqhq-5-Uanvynwg 0.3 g/dL (0.2-0.5) 11/01/18 15:40 Cina-4-Czhopqvaoymsi 5.38 mg/L (< 2.52) H 11/01/18 15:40 Gamma Globulins 0.9 g/dL (0.8-1.7) 11/01/18 15:40 Abnorm Protein Band 1 Not Reportable 11/01/18 15:40 Abnorm Protein Band 2 Not Reportable 11/01/18 15:40 Abn Gamma Band 3 Serum Not Reportable 11/01/18 15:40 PEP Comment See note 11/01/18 15:40 IgG, Serum (MS) 802 mg/dL (694-1618) 11/01/18 15:40 IgA 169 mg/dL (81-463) 11/01/18 15:40 IgM 45 mg/dL (48-271) L 11/01/18 15:40 DANDRE & SPEP Interp See note 09/09/18 11:18 Free [place] Light Chains 728.0 mg/L (3.3-19.4) H 11/01/18 15:40 Free [place] Light Chain 15.0 mg/L (5.7-26.3) 11/01/18 15:40 Free [place]/Lambda Ratio 48.47 (0.26-1.65) H 11/01/18 15:40 Blood Type A Positive 11/07/18 14:35 Antibody Screen Negative 11/07/18 14:35 - Imaging Additional studies: Procedures Biopsy of bone, other bones (04/23/14) Excision of lesion of other soft tissue (01/01/12) Inspection of Upper Intestinal Tract, Via Natural or Artificial Opening Endoscopic (01/30/16) Assessment and Plan (1) Multiple myeloma Problem details: Multiple myeloma previously treated with Revlimid and multiple courses of radiation. Multiple myeloma. Her kappa free light chains have been increasing. She has just completed another course of radiation. It appears that she has been off of her Revlimid for at least 3 months now. I think given the multiple rounds of radiation that have been needed over the years, it is clear that her disease has been progressing and is resistant to the Revlimid. She is quite insistent that she does not want to consider any IV treatment if it can be avoided. I think would be reasonable to try her on pomalidomide and dexamethasone. Side effects of pomalidomide were reviewed. She is willing to proceed. We will check a baseline SPEP and serum free light chains today. She will return to clinic in about 4 weeks for follow-up. If she fails to respond adequately to pomalidomide and dexamethasone, the addition of daratumumab would certainly be reasonable. She has not yet been exposed to a proteosome inhibitor which would be certainly reasonable to think about if she would allow it. Kyprolis might be a better choice than Velcade given her underlying neuropathy. It is not clear when exactly she stopped her Zometa. She does have a solitary kidney and a history of renal insufficiency but with normal creatinine now. She does have poor dentition. Depending on her response to pomalidomide, we might consider pamidronate as an option. Greater than 40 min was spent with the patient reviewing her history and in counseling. (2) Pulmonary embolus Assessment and Plan: Patient underwent lower extremity ultrasound study on 09/23/2018. No evidence of DVT found. The emboli source of the large bilateral saddle pulmonary embolism is not clear at this moment. For now, will continue Apixaban 5 mg bid while pt is at [facility]. (3) History of renal cell carcinoma Problem details: She had right nephrectomy 09/2008 for renal cell carcinoma, high grade, papillary, with chronic renal insufficiency. Assessment and plan: Patient has a remote history of right renal cell carcinoma status post right radical nephrectomy. The current occurrence of pulmonary embolism raises the possibility that there may be recurrence of her known renal cell carcinoma. I will continue surveillance.
--- NOTE | 2018-12-13 18:09 | P.PNONC_ITS ---
PN -Subjective Interval history: Diagnosis: Multiple myeloma Previous treatment: 1. 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 Progression to multiple myeloma started treatment with Revlimid and dexamethasone in March 2014. She later transitioned to Revlimid only at a dose of 15 mg/day. 3. Radiation therapy to the 6th rib, T11-L2, cervical spine and left ilium in May 2014 4. Radiation therapy to the right humerus finishing in October 2014 5. Radiation therapy to T7 and T12 in May 2015 6. Another course of radiation to the right humerus in June 2015 7. Another course of radiation to the spine from T9 through L1 in January 2016 8. 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 Radiation therapy to the right hip in October 2018. Interval history: The patient is an 78-year-old woman with a longstanding history of multiple myeloma. She has previously been treated with Revlimid and had been stable for many years although did have multiple courses of radiation to areas of progression over that time. She previously has been on Zometa but can't remember how long ago at stopped. She had a recent restaging evaluation showing evidence of progression in the right hip with high risk for impending fracture that was radiated. Her serum free light chains have shown a steady increase in the kappa light chains, and a bone marrow biopsy in September showed 10-15% of the total marrow cellularity was plasma cells. She had been scheduled to start the therapy for progressive disease with Velcade, dexamethasone and daratumumab. She was quite resistant to the IV therapy and has not gone ahead with that. She tells me that she has been off of her Revlimid since December of last year when her grandson . She relates that she had been tolerating the Revlimid without any difficulty. Review of her pharmacy records shows that she has not had a refill of her Revlimid since July of 2018. She had been on it for about 4 months continuously at that time. Apparently a cot stopped when she was hospitalized for a pulmonary embolus. It has not yet been restarted. Today, she notes that the pain in her hip as largely improved. She does have some pain in her back which has been chronic. She also notes discomfort in the right temporal area that is been present for several years. She notes that her appetite has been improving. She denies any nausea or vomiting. No fevers chills or sweats. She does have some neuropathy in her feet. Of note, she had right nephrectomy 09/2008 for renal cell carcinoma, high grade papillary, with chronic renal insufficiency. - Additional ROS All systems PM: reviewed and no additional remarkable complaints except as stated (She has had some memory problems. She denies any fevers or chills. She is not having any shortness of breath or chest pain. Her appetite has been improving. She denies any diarrhea or skin rash.) Home Medications and Allergies Home Medications Medication Instructions Recorded Confirmed Type gabapentin 600 mg PO TID #0 12/01/11 11/04/18 History cholecalciferol (vitamin D3) 2,000 iu PO QDAY #0 07/22/16 11/07/18 History [Vitamin D3] ipratropium bromide 2 spray INH BID #0 07/27/16 11/04/18 History lactulose 10 gm PO BID #360 ml 08/19/16 11/04/18 Rx [ZOMETA] QMONTH #0 04/12/17 History glipizide 5 mg PO AMAC #0 04/19/17 11/04/18 History lidocaine-prilocaine 1 don TOPICAL PRN PRN #30 gm 05/05/17 11/04/18 Rx multivitamin [Multiple Vitamins] 1 tab PO QDAY #0 05/12/17 11/04/18 History eszopiclone 3 mg PO HS #0 01/14/18 11/04/18 History primidone [Mysoline] 100 mg PO DAILY #0 01/14/18 11/07/18 History propranolol 80 mg PO DAILY #0 01/14/18 11/07/18 History albuterol sulfate 1 puff INH QID #0 02/12/18 11/07/18 History clobetasol-emollient 0.05 pump TOPICAL Q8HP #0 02/12/18 11/07/18 History diphenoxylate-atropine 1 tab PO BID #0 02/12/18 11/04/18 History guaifenesin 600 mg PO BID #0 02/12/18 11/04/18 History ondansetron [Zofran ODT] 8 mg PO Q8HP PRN #0 02/12/18 11/04/18 History Ketoconazole 1 don TOPICAL BID 03/30/18 11/04/18 History levothyroxine 150 mcg PO DAILY 03/30/18 11/07/18 History loperamide 2 mg PO Q2-4H PRN 03/30/18 11/04/18 History melatonin 1 mg PO BEDTIME PRN 03/30/18 11/04/18 History omeprazole 40 mg PO DAILY 03/30/18 11/07/18 History sertraline 100 mg PO DAILY 03/30/18 11/07/18 History apixaban 5 mg PO DAILY 09/23/18 11/07/18 History acetaminophen [Tylenol Extra 650 mg PO TID PRN #60 tab 09/29/18 11/07/18 Rx Strength] Saccharomyces boulardii [Florastor] 250 mg PO BID 11/07/18 11/07/18 History oxycodone-acetaminophen 1 tab PO Q6H PRN 11/07/18 11/07/18 History dexamethasone 20 mg PO WEEKLY 28 Days #40 tab 12/13/18 Rx pomalidomide 2 mg PO DAILY 21 Days #21 cap 12/13/18 Rx Allergies Allergy/AdvReac Type Severity Reaction Status Date / Time morphine Allergy Severe STROKE Verified 04/20/18 13:22 LIKE SYMPTOMS levofloxacin Allergy Intermediate HIVES Verified 04/20/18 13:22 adhesive [ADHESIVE] Allergy Mild BLISTERS Verified 04/20/18 13:22 celecoxib Allergy Mild RASH, Verified 04/20/18 13:22 SMALL BLISTERS, NAUSEA Penicillins Allergy Mild RASH Verified 04/20/18 13:22 phenazopyridine Allergy Mild VOMITING Verified 04/20/18 13:22 [From PYRIDIUM] Sulfa (Sulfonamide Allergy Mild BLISTERS Verified 04/20/18 13:22 Antibiotics) lactose [LACTOSE] Allergy Unknown Verified 04/20/18 13:22 Exam - Constitutional positive no acute distress, positive obese, positive chronically ill appearing - Routine HEENT Exam Head: Present: normocephalic, atraumatic Eye: Present: EOMI, PERRL. Absent: conjunctival icterus, scleral injection ENT: Present: mucous membranes moist, oropharynx clear - Routine Neck Exam Present: supple. Absent: lymphadenopathy, thyromegaly - Routine Respiratory Exam Present: decreased breath sounds. Absent: rales, wheezes - Routine Cardiovascular Exam Present: RRR, S1, S2. Absent: murmur - Routine Abdominal Exam Present: soft, normoactive bowel sounds. Absent: tenderness, organomegaly - Routine Extremities Exam Absent: cyanosis, clubbing, edema - Routine Back/Spine Exam Back/Spine: Absent: vertebral tenderness - Routine Skin Exam Present: intact. Absent: petechiae, rash - Routine Neurological Exam Present: alert, oriented X3 - Routine Psychiatric Exam Present: normal affect, normal thought process Results - Labs Laboratory Last Values WBC 3.1 X10^3/uL (4.5-11.0) L 12/13/18 15:13 RBC 3.62 X10^6/uL (4.0-5.2) L 12/13/18 15:13 Hgb 11.7 g/dL (12.0-16.0) L 12/13/18 15:13 Hct 36.0 % (36-46) 12/13/18 15:13 MCV 99.2 fL (80-100) 12/13/18 15:13 MCH 32.4 PG (26-34) 12/13/18 15:13 MCHC 32.6 % (30-36) 12/13/18 15:13 RDW 14.7 % (11.6-14.8) 12/13/18 15:13 Plt Count 162 X10^3/uL (150-400) 12/13/18 15:13 Neut % (Auto) 62.9 % (50-75) 12/13/18 15:13 Lymph % (Auto) 21.8 % (25-40) L 12/13/18 15:13 Rhea % (Auto) 11.6 % (3-14) 12/13/18 15:13 Eos % (Auto) 2.5 % (2-4) 12/13/18 15:13 Baso % (Auto) 1.2 % (0-2) 12/13/18 15:13 Neut # (Auto) 1900 /uL (5670-8509) 12/13/18 15:13 Lymph # (Auto) 700 /uL (8662-2549) L 12/13/18 15:13 Rhea # (Auto) 400 /uL (0-900) 12/13/18 15:13 Eos # (Auto) 100 /uL (0-450) 12/13/18 15:13 Baso # (Auto) 0 /uL (0-100) 12/13/18 15:13 Total Counted 50 07/07/18 11:12 Seg Neutrophils % 52.0 % (38-70) 07/07/18 11:12 Lymphocytes % (Manual) 22.0 % (25-45) L 07/07/18 11:12 Monocytes % (Manual) 2.0 % (2-11) 07/07/18 11:12 Eosinophils % (Manual) 22.0 % (2-4) H 07/07/18 11:12 Basophils % (Manual) 2.0 % (0-1) H 07/07/18 11:12 Neutrophils # (Manual) 1664 /uL (4778-7938) L 07/07/18 11:12 RBC Morphology Not Reportable 07/07/18 11:12 Anisocytosis 1+ H 07/07/18 11:12 Sodium 137 mmol/L (137-145) 12/13/18 15:13 Potassium 4.5 mmol/L (3.4-5.1) 12/13/18 15:13 Chloride 103 mmol/L (98-107) 12/13/18 15:13 Carbon Dioxide 25 mmol/L (22-32) 12/13/18 15:13 BUN 32 mg/dL (7-17) H 12/13/18 15:13 Creatinine 1.00 mg/dL (0.52-1.04) 12/13/18 15:13 Estimated GFR 53.3 mL/min (>60) L 12/13/18 15:13 BUN/Creatinine Ratio 32.0 (6-22) H 12/13/18 15:13 Glucose 138 mg/dL (80-110) H 12/13/18 15:13 Calcium 8.8 mg/dL (8.4-10.2) 12/13/18 15:13 Total Bilirubin 0.3 mg/dL (0.2-1.3) 12/13/18 15:13 AST 20 IU/L (14-36) 12/13/18 15:13 ALT 24 IU/L (9-52) 12/13/18 15:13 Alkaline Phosphatase 88 U/L (38-126) 12/13/18 15:13 Lactate Dehydrogenase 469 U/L (313-618) 11/01/18 15:40 Serum Total Protein 6.2 g/dL (6.1-8.1) 11/01/18 15:40 Total Protein 6.7 g/dL (6.3-8.2) 12/13/18 15:13 Albumin 3.9 g/dL (3.5-5.0) 12/13/18 15:13 Globulin 2.8 g/dL (1.7-4.1) 12/13/18 15:13 Albumin/Globulin Ratio 1.4 (1.0-2.8) 12/13/18 15:13 Qavzp-9-Svbhqrxwg 0.3 g/dL (0.2-0.3) 11/01/18 15:40 Gegdu-3-Nkkdfghnb 0.7 g/dL (0.5-0.9) 11/01/18 15:40 Itux-8-Efknpeac 0.4 g/dL (0.4-0.6) 11/01/18 15:40 Gpfa-3-Nbqjznod 0.3 g/dL (0.2-0.5) 11/01/18 15:40 Vazs-1-Ayuqkgyudcaoo 5.38 mg/L (< 2.52) H 11/01/18 15:40 Gamma Globulins 0.9 g/dL (0.8-1.7) 11/01/18 15:40 Abnorm Protein Band 1 Not Reportable 11/01/18 15:40 Abnorm Protein Band 2 Not Reportable 11/01/18 15:40 Abn Gamma Band 3 Serum Not Reportable 11/01/18 15:40 PEP Comment See note 11/01/18 15:40 IgG, Serum (MS) 802 mg/dL (694-1618) 11/01/18 15:40 IgA 169 mg/dL (81-463) 11/01/18 15:40 IgM 45 mg/dL (48-271) L 11/01/18 15:40 DANDRE & SPEP Interp See note 09/09/18 11:18 Free Summer Shade Light Chains 728.0 mg/L (3.3-19.4) H 11/01/18 15:40 Free Lambda Light Chain 15.0 mg/L (5.7-26.3) 11/01/18 15:40 Free Summer Shade/Lambda Ratio 48.47 (0.26-1.65) H 11/01/18 15:40 Blood Type A Positive 11/07/18 14:35 Antibody Screen Negative 11/07/18 14:35 - Imaging Additional studies: Procedures Biopsy of bone, other bones (04/23/14) Excision of lesion of other soft tissue (01/01/12) Inspection of Upper Intestinal Tract, Via Natural or Artificial Opening Endoscopic (01/30/16) Assessment and Plan (1) Multiple myeloma Problem details: Multiple myeloma previously treated with Revlimid and multiple courses of radiation. Multiple myeloma. Her kappa free light chains have been increasing. She has just completed another course of radiation. It appears that she has been off of her Revlimid for at least 3 months now. I think given the multiple rounds of radiation that have been needed over the years, it is clear that her disease has been progressing and is resistant to the Revlimid. She is quite insistent that she does not want to consider any IV treatment if it can be avoided. I think would be reasonable to try her on pomalidomide and dexamethasone. Side effects of pomalidomide were reviewed. She is willing to proceed. We will check a baseline SPEP and serum free light chains today. She will return to clinic in about 4 weeks for follow-up. If she fails to respond adequately to pomalidomide and dexamethasone, the addition of daratumumab would certainly be reasonable. She has not yet been exposed to a proteosome inhibitor which would be certainly reasonable to think about if she would allow it. Kyprolis might be a better choice than Velcade g iven her underlying neuropathy. It is not clear when exactly she stopped her Zometa. She does have a solitary kidney and a history of renal insufficiency but with normal creatinine now. She does have poor dentition. Depending on her response to pomalidomide, we might consider pamidronate as an option. Greater than 40 min was spent with the patient reviewing her history and in counseling. (2) Pulmonary embolus Assessment and Plan: Patient underwent lower extremity ultrasound study on 09/23/2018. No evidence of DVT found. The emboli source of the large bilateral saddle pulmonary embolism is not clear at this moment. For now, will continue Apixaban 5 mg bid while pt is at [facility]. (3) History of renal cell carcinoma Problem details: She had right nephrectomy 09/2008 for renal cell carcinoma, high grade, papillary, with chronic renal insufficiency. Assessment and plan: Patient has a remote history of right renal cell carcinoma status post right radical nephrectomy. The current occurrence of pulmonary embolism raises the possibility that there may be recurrence of her known renal cell carcinoma. I will continue surveillance.
[2018-12-15 23:06] LABS: Albumin 3.5 g/dL (3.8-4.8); Alpha 1 Globulin 0.3 g/dL (0.2-0.3); Alpha 2 Globulin 0.8 g/dL (0.5-0.9); Beta 1 Globulin 0.4 g/dL (0.4-0.6); Gamma Globulin 0.8 g/dL (0.8-1.7); Protein, Total 6.1 g/dL (6.1-8.1)
[2018-12-16 14:32] LABS: Free Kappa Light Chain 832.5 mg/L (3.3-19.4); Free Kappa/ Lambda Ratio 56.63 (0.26-1.65); Free Lambda 14.7 mg/L (5.7-26.3)
[2019-01-17 10:27] VITALS: BP 123/55; PULSE 64; RESP 18; TEMP 37.4; O2SAT 96
[2019-01-17 10:50] LABS: Add Manual Diff / Slide Review NO; Basophils Absolute Auto 0 /uL (0-100); Basophils Percent Auto 0.3 % (0-2); Eosinophils Absolute Auto 100 /uL (0-450); Eosinophils Percent Auto 1.2 % (2-4); Hematocrit 32.8 % (36-46); Hemoglobin 11.2 g/dL (12.0-16.0); Lymphocytes Absolute Auto 400 /uL (1100-4500); Lymphocytes Percent Auto 8.4 % (25-40); Mean Corpuscular HGB Conc 34.2 % (30-36); Mean Corpuscular Hemoglobin 31.8 PG (26-34); Mean Corpuscular Volume 92.8 fL (80-100); Monocytes Absolute Auto 600 /uL (0-900); Monocytes Percent Auto 12.2 % (3-14); Neutrophils Absolute Auto 3900 /uL (1500-7000); Neutrophils Percent Auto 77.9 % (50-75); Platelet Count 217 X10^3/uL (150-400); Red Blood Cell Count 3.54 X10^6/uL (4.0-5.2); Red Cell Distribution Width 14.4 % (11.6-14.8)
[2019-01-17 11:30] LABS: Alanine Aminotransferase 19 IU/L (9-52); Albumin 3.5 g/dL (3.5-5.0); Albumin Globulin Ratio 1.3 (1.0-2.8); Alkaline Phosphatase 97 U/L (38-126); Aspartate Aminotransferase 19 IU/L (14-36); BUN Creatinine Ratio 7.7 (6-22); Bilirubin Total 1.3 mg/dL (0.2-1.3); Blood Urea Nitrogen 48 mg/dL (7-17); Calcium 7.4 mg/dL (8.4-10.2); Carbon Dioxide 20 mmol/L (22-32); Chloride 92 mmol/L (98-107); Estimated Glomerular Filt Rate 6.5 mL/min (>60); Globulin 2.7 g/dL (1.7-4.1); Glucose 136 mg/dL (80-110); HEMOLYSIS < 15 (0-50); Potassium 3.4 mmol/L (3.4-5.1); Sodium 127 mmol/L (137-145); Total Protein 6.2 g/dL (6.3-8.2)
--- NOTE | 2019-01-17 11:53 | ONC.PN ---
PN -Subjective Interval history: Diagnosis: Multiple myeloma Previous treatment: 1. 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 Progression to multiple myeloma started treatment with Revlimid and dexamethasone in March 2014. She later transitioned to Revlimid only at a dose of 15 mg/day. 3. Radiation therapy to the 6th rib, T11-L2, cervical spine and left ilium in May 2014 4. Radiation therapy to the right humerus finishing in October 2014 5. Radiation therapy to T7 and T12 in May 2015 6. Another course of radiation to the right humerus in June 2015 7. Another course of radiation to the spine from T9 through L1 in January 2016 8. 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 Radiation therapy to the right hip in October 2018. Interval history: The patient is an 78-year-old woman with a longstanding history of multiple myeloma. She has previously been treated with Revlimid and had been stable for many years although did have multiple courses of radiation to areas of progression over that time. She previously has been on Zometa but can't remember how long ago at stopped. At her last visit here, she is found to have evidence of progression with increase in her serum free light chains. It was planned to start her on Ninlaro. She has received the pills but has not started taking them. Over the last few weeks, she has been bothered by a respiratory illness. She was hospitalized at [facility]. She was apparently found to have influenza. Since her hospital discharge, she initially was improving but then her symptoms recurred. She has very limited mobility. She reports that she has not been peeing for the last several days. She has had some low-grade fevers as well as a persistent cough. Her family notes that her mental status has been somewhat confused. She has had a little bit of a headache but denies any other new aches or pains. She is eating and drinking although her appetite has been somewhat low. She reports that her bowel movements have been normal. She does have ongoing neuropathy involving her legs which has been unchanged. Of note, she had right nephrectomy 09/2008 for renal cell carcinoma, high grade papillary, with chronic renal insufficiency. - Additional ROS All systems PM: reviewed and no additional remarkable complaints except as stated Home Medications and Allergies Home Medications Medication Instructions Recorded Confirmed Type gabapentin 600 mg PO TID #0 12/01/11 11/04/18 History cholecalciferol (vitamin D3) 2,000 iu PO QDAY #0 07/22/16 11/07/18 History [Vitamin D3] ipratropium bromide 2 spray INH BID #0 07/27/16 11/04/18 History lactulose 10 gm PO BID #360 ml 08/19/16 11/04/18 Rx [ZOMETA] QMONTH #0 04/12/17 History glipizide 5 mg PO AMAC #0 04/19/17 11/04/18 History lidocaine-prilocaine 1 don TOPICAL PRN PRN #30 gm 05/05/17 11/04/18 Rx multivitamin [Multiple Vitamins] 1 tab PO QDAY #0 05/12/17 11/04/18 History eszopiclone 3 mg PO HS #0 01/14/18 11/04/18 History propranolol 80 mg PO DAILY #0 01/14/18 11/07/18 History albuterol sulfate 1 puff INH QID #0 02/12/18 11/07/18 History clobetasol-emollient 0.05 pump TOPICAL Q8HP #0 02/12/18 11/07/18 History diphenoxylate-atropine 1 tab PO BID #0 02/12/18 11/04/18 History guaifenesin 600 mg PO BID #0 02/12/18 11/04/18 History ondansetron [Zofran ODT] 8 mg PO Q8HP PRN #0 02/12/18 11/04/18 History Ketoconazole 1 don TOPICAL BID 03/30/18 11/04/18 History levothyroxine 150 mcg PO DAILY 03/30/18 11/07/18 History loperamide 2 mg PO Q2-4H PRN 03/30/18 11/04/18 History melatonin 1 mg PO BEDTIME PRN 03/30/18 11/04/18 History omeprazole 40 mg PO DAILY 03/30/18 11/07/18 History sertraline 100 mg PO DAILY 03/30/18 11/07/18 History apixaban 5 mg PO DAILY 09/23/18 11/07/18 History acetaminophen [Tylenol Extra 650 mg PO TID PRN #60 tab 09/29/18 11/07/18 Rx Strength] Saccharomyces boulardii [Florastor] 250 mg PO BID 11/07/18 11/07/18 History oxycodone-acetaminophen 1 tab PO Q6H PRN 11/07/18 11/07/18 History dexamethasone 20 mg PO WEEKLY 28 Days #40 tab 12/13/18 Rx pomalidomide 2 mg PO DAILY 21 Days #21 cap 12/13/18 Rx ixazomib [Ninlaro] 4 mg PO QWEEK 28 Days #3 cap 12/28/18 Rx Allergies Allergy/AdvReac Type Severity Reaction Status Date / Time morphine Allergy Severe STROKE Verified 04/20/18 13:22 LIKE SYMPTOMS levofloxacin Allergy Intermediate HIVES Verified 04/20/18 13:22 adhesive [ADHESIVE] Allergy Mild BLISTERS Verified 04/20/18 13:22 celecoxib Allergy Mild RASH, Verified 04/20/18 13:22 SMALL BLISTERS, NAUSEA Penicillins Allergy Mild RASH Verified 04/20/18 13:22 phenazopyridine Allergy Mild VOMITING Verified 04/20/18 13:22 [From PYRIDIUM] Sulfa (Sulfonamide Allergy Mild BLISTERS Verified 04/20/18 13:22 Antibiotics) lactose [LACTOSE] Allergy Unknown Verified 04/20/18 13:22 Exam Vital signs: Vital Signs Temp Pulse Resp BP Pulse Ox 01/17/19 10:27 99.3 F 64 18 123/55 L 96 - Constitutional positive obese, positive chronically ill appearing Comments: She is in a wheelchair. - Routine HEENT Exam Head: Present: normocephalic, atraumatic Eye: Present: EOMI, PERRL. Absent: conjunctival icterus, scleral injection ENT: Present: mucous membranes moist, oropharynx clear - Routine Neck Exam Present: supple. Absent: lymphadenopathy, thyromegaly - Routine Respiratory Exam Present: rales, wheezes, crackles Comments: Her breath sounds are somewhat distant but she does have a diffuse crackles and wheezes. - Routine Cardiovascular Exam Present: RRR, S1, S2. Absent: murmur - Routine Abdominal Exam Present: soft, normoactive bowel sounds. Absent: tenderness, organomegaly, mass - Routine Extremities Exam Present: edema Comments: She has 1 to 2+ bilateral lower extremity edema. - Routine Skin Exam Present: intact. Absent: petechiae, rash - Routine Neurological Exam Present: alert She is oriented to name and place but has some difficulty with time. Her memory is not as sharp as usual. Results - Labs Laboratory Last Values WBC 5.0 X10^3/uL (4.5-11.0) 01/17/19 10:10 RBC 3.54 X10^6/uL (4.0-5.2) L 01/17/19 10:10 Hgb 11.2 g/dL (12.0-16.0) L 01/17/19 10:10 Hct 32.8 % (36-46) L 01/17/19 10:10 MCV 92.8 fL (80-100) 01/17/19 10:10 MCH 31.8 PG (26-34) 01/17/19 10:10 MCHC 34.2 % (30-36) 01/17/19 10:10 RDW 14.4 % (11.6-14.8) 01/17/19 10:10 Plt Count 217 X10^3/uL (150-400) 01/17/19 10:10 Neut % (Auto) 77.9 % (50-75) H 01/17/19 10:10 Lymph % (Auto) 8.4 % (25-40) L 01/17/19 10:10 [place] % (Auto) 12.2 % (3-14) 01/17/19 10:10 Eos % (Auto) 1.2 % (2-4) L 01/17/19 10:10 Baso % (Auto) 0.3 % (0-2) 01/17/19 10:10 Neut # (Auto) 3900 /uL (1561-6365) 01/17/19 10:10 Lymph # (Auto) 400 /uL (5915-2814) L 01/17/19 10:10 [place] # (Auto) 600 /uL (0-900) 01/17/19 10:10 Eos # (Auto) 100 /uL (0-450) 01/17/19 10:10 Baso # (Auto) 0 /uL (0-100) 01/17/19 10:10 Total Counted 50 07/07/18 11:12 Seg Neutrophils % 52.0 % (38-70) 07/07/18 11:12 Lymphocytes % (Manual) 22.0 % (25-45) L 07/07/18 11:12 Monocytes % (Manual) 2.0 % (2-11) 07/07/18 11:12 Eosinophils % (Manual) 22.0 % (2-4) H 07/07/18 11:12 Basophils % (Manual) 2.0 % (0-1) H 07/07/18 11:12 Neutrophils # (Manual) 1664 /uL (9716-1425) L 07/07/18 11:12 RBC Morphology Not Reportable 07/07/18 11:12 Anisocytosis 1+ H 07/07/18 11:12 Sodium 127 mmol/L (137-145) L 01/17/19 10:10 Potassium 3.4 mmol/L (3.4-5.1) 01/17/19 10:10 Chloride 92 mmol/L (98-107) L 01/17/19 10:10 Carbon Dioxide 20 mmol/L (22-32) L 01/17/19 10:10 BUN 48 mg/dL (7-17) H 01/17/19 10:10 Creatinine 6.20 mg/dL (0.52-1.04) H 01/17/19 10:10 Estimated GFR 6.5 mL/min (>60) L 01/17/19 10:10 BUN/Creatinine Ratio 7.7 (6-22) 01/17/19 10:10 Glucose 136 mg/dL (80-110) H 01/17/19 10:10 Calcium 7.4 mg/dL (8.4-10.2) L 01/17/19 10:10 Total Bilirubin 1.3 mg/dL (0.2-1.3) 01/17/19 10:10 AST 19 IU/L (14-36) 01/17/19 10:10 ALT 19 IU/L (9-52) 01/17/19 10:10 Alkaline Phosphatase 97 U/L (38-126) 01/17/19 10:10 Lactate Dehydrogenase 469 U/L (313-618) 11/01/18 15:40 Serum Total Protein 6.1 g/dL (6.1-8.1) 12/13/18 15:13 Total Protein 6.2 g/dL (6.3-8.2) L 01/17/19 10:10 Albumin 3.5 g/dL (3.5-5.0) 01/17/19 10:10 Globulin 2.7 g/dL (1.7-4.1) 01/17/19 10:10 Albumin/Globulin Ratio 1.3 (1.0-2.8) 01/17/19 10:10 Adsys-7-Zlikreide 0.3 g/dL (0.2-0.3) 12/13/18 15:13 Kzbik-9-Luoiuekvd 0.8 g/dL (0.5-0.9) 12/13/18 15:13 Lhok-4-Dobvzonq 0.4 g/dL (0.4-0.6) 12/13/18 15:13 Hnoz-7-Gcjfyknh 0.3 g/dL (0.2-0.5) 12/13/18 15:13 Imqs-7-Pmkpgmakkgcog 5.38 mg/L (< 2.52) H 11/01/18 15:40 Gamma Globulins 0.8 g/dL (0.8-1.7) 12/13/18 15:13 Abnorm Protein Band 1 Not Reportable 12/13/18 15:13 Abnorm Protein Band 2 Not Reportable 12/13/18 15:13 Abn Gamma Band 3 Serum Not Reportable 12/13/18 15:13 PEP Comment See note 12/13/18 15:13 IgG, Serum (MS) 802 mg/dL (694-1618) 11/01/18 15:40 IgA 169 mg/dL (81-463) 11/01/18 15:40 IgM 45 mg/dL (48-271) L 11/01/18 15:40 DANDRE & SPEP Interp See note 09/09/18 11:18 Free [place] Light Chains 832.5 mg/L (3.3-19.4) H 12/13/18 15:13 Free [place]ambda Light Chain 14.7 mg/L (5.7-26.3) 12/13/18 15:13 Free [place]/Lambda Ratio 56.63 (0.26-1.65) H 12/13/18 15:13 Blood Type A Positive 11/07/18 14:35 Antibody Screen Negative 11/07/18 14:35 - Imaging Additional studies: Procedures Biopsy of bone, other bones (04/23/14) Excision of lesion of other soft tissue (01/01/12) Inspection of Upper Intestinal Tract, Via Natural or Artificial Opening Endoscopic (01/30/16) Assessment and Plan (1) Multiple myeloma Problem details: Multiple myeloma previously treated with Revlimid and multiple courses of radiation. Multiple myeloma. Her kappa free light chains have been increasing. I think she can start on her protease inhibitor once he has recovered from her acute illness. She does have recent episode of influenza. She has low-grade fevers and some mental status changes. I am worried that she may be developing an infection. Will try and arrange for direct admission. (2) Pulmonary embolus Assessment and Plan: Patient underwent lower extremity ultrasound study on 09/23/2018. No evidence of DVT found. The emboli source of the large bilateral saddle pulmonary embolism is not clear at this moment. For now, will continue Apixaban 5 mg bid (3) History of renal cell carcinoma Problem details: She had right nephrectomy 09/2008 for renal cell carcinoma, high grade, papillary, with chronic renal insufficiency. Assessment and plan: Patient has a remote history of right renal cell carcinoma status post right radical nephrectomy.
--- NOTE | 2019-01-17 11:58 | P.PNONC_ITS ---
PN -Subjective Interval history: Diagnosis: Multiple myeloma Previous treatment: 1. 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 Progression to multiple myeloma started treatment with Revlimid and dexamethasone in March 2014. She later transitioned to Revlimid only at a dose of 15 mg/day. 3. Radiation therapy to the 6th rib, T11-L2, cervical spine and left ilium in May 2014 4. Radiation therapy to the right humerus finishing in October 2014 5. Radiation therapy to T7 and T12 in May 2015 6. Another course of radiation to the right humerus in June 2015 7. Another course of radiation to the spine from T9 through L1 in January 2016 8. 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 Radiation therapy to the right hip in October 2018. Interval history: The patient is an 78-year-old woman with a longstanding history of multiple myeloma. She has previously been treated with Revlimid and had been stable for many years although did have multiple courses of radiation to areas of progression over that time. She previously has been on Zometa but can't remember how long ago at stopped. At her last visit here, she is found to have evidence of progression with increase in her serum free light chains. It was planned to start her on Ninlaro. She has received the pills but has not started taking them. Over the last few weeks, she has been bothered by a respiratory illness. She was hospitalized at [facility]. She was apparently found to have influenza. Since her hospital discharge, she initially was improving but then her symptoms recurred. She has very limited mobility. She reports that she has not been peeing for the last several days. She has had some low-grade fevers as well as a persistent cough. Her family notes that her mental status has been somewhat confused. She has had a little bit of a headache but denies any other new aches or pains. She is eating and drinking although her appetite has been somewhat low. She reports that her bowel movements have been normal. She does have ongoing neuropathy involving her legs which has been unchanged. Of note, she had right nephrectomy 09/2008 for renal cell carcinoma, high grade papillary, with chronic renal insufficiency. - Additional ROS All systems PM: reviewed and no additional remarkable complaints except as stated Home Medications and Allergies Home Medications Medication Instructions Recorded Confirmed Type gabapentin 600 mg PO TID #0 12/01/11 11/04/18 History cholecalciferol (vitamin D3) 2,000 iu PO QDAY #0 07/22/16 11/07/18 History [Vitamin D3] ipratropium bromide 2 spray INH BID #0 07/27/16 11/04/18 History lactulose 10 gm PO BID #360 ml 08/19/16 11/04/18 Rx [ZOMETA] QMONTH #0 04/12/17 History glipizide 5 mg PO AMAC #0 04/19/17 11/04/18 History lidocaine-prilocaine 1 don TOPICAL PRN PRN #30 gm 05/05/17 11/04/18 Rx multivitamin [Multiple Vitamins] 1 tab PO QDAY #0 05/12/17 11/04/18 History eszopiclone 3 mg PO HS #0 01/14/18 11/04/18 History propranolol 80 mg PO DAILY #0 01/14/18 11/07/18 History albuterol sulfate 1 puff INH QID #0 02/12/18 11/07/18 History clobetasol-emollient 0.05 pump TOPICAL Q8HP #0 02/12/18 11/07/18 History diphenoxylate-atropine 1 tab PO BID #0 02/12/18 11/04/18 History guaifenesin 600 mg PO BID #0 02/12/18 11/04/18 History ondansetron [Zofran ODT] 8 mg PO Q8HP PRN #0 02/12/18 11/04/18 History Ketoconazole 1 don TOPICAL BID 03/30/18 11/04/18 History levothyroxine 150 mcg PO DAILY 03/30/18 11/07/18 History loperamide 2 mg PO Q2-4H PRN 03/30/18 11/04/18 History melatonin 1 mg PO BEDTIME PRN 03/30/18 11/04/18 History omeprazole 40 mg PO DAILY 03/30/18 11/07/18 History sertraline 100 mg PO DAILY 03/30/18 11/07/18 History apixaban 5 mg PO DAILY 09/23/18 11/07/18 History acetaminophen [Tylenol Extra 650 mg PO TID PRN #60 tab 09/29/18 11/07/18 Rx Strength] Saccharomyces boulardii [Florastor] 250 mg PO BID 11/07/18 11/07/18 History oxycodone-acetaminophen 1 tab PO Q6H PRN 11/07/18 11/07/18 History dexamethasone 20 mg PO WEEKLY 28 Days #40 tab 12/13/18 Rx pomalidomide 2 mg PO DAILY 21 Days #21 cap 12/13/18 Rx ixazomib [Ninlaro] 4 mg PO QWEEK 28 Days #3 cap 12/28/18 Rx Allergies Allergy/AdvReac Type Severity Reaction Status Date / Time morphine Allergy Severe STROKE Verified 04/20/18 13:22 LIKE SYMPTOMS levofloxacin Allergy Intermediate HIVES Verified 04/20/18 13:22 adhesive [ADHESIVE] Allergy Mild BLISTERS Verified 04/20/18 13:22 celecoxib Allergy Mild RASH, Verified 04/20/18 13:22 SMALL BLISTERS, NAUSEA Penicillins Allergy Mild RASH Verified 04/20/18 13:22 phenazopyridine Allergy Mild VOMITING Verified 04/20/18 13:22 [From PYRIDIUM] Sulfa (Sulfonamide Allergy Mild BLISTERS Verified 04/20/18 13:22 Antibiotics) lactose [LACTOSE] Allergy Unknown Verified 04/20/18 13:22 Exam Vital signs: Vital Signs Temp Pulse Resp BP Pulse Ox 01/17/19 10:27 99.3 F 64 18 123/55 L 96 - Constitutional positive obese, positive chronically ill appearing Comments: She is in a wheelchair. - Routine HEENT Exam Head: Present: normocephalic, atraumatic Eye: Present: EOMI, PERRL. Absent: conjunctival icterus, scleral injection ENT: Present: mucous membranes moist, oropharynx clear - Routine Neck Exam Present: supple. Absent: lymphadenopathy, thyromegaly - Routine Respiratory Exam Present: rales, wheezes, crackles Comments: Her breath sounds are somewhat distant but she does have a diffuse crackles and wheezes. - Routine Cardiovascular Exam Present: RRR, S1, S2. Absent: murmur - Routine Abdominal Exam Present: soft, normoactive bowel sounds. Absent: tenderness, organomegaly, mass - Routine Extremities Exam Present: edema Comments: She has 1 to 2+ bilateral lower extremity edema. - Routine Skin Exam Present: intact. Absent: petechiae, rash - Routine Neurological Exam Present: alert She is oriented to name and place but has some difficulty with time. Her memory is not as sharp as usual. Results - Labs Laboratory Last Values WBC 5.0 X10^3/uL (4.5-11.0) 01/17/19 10:10 RBC 3.54 X10^6/uL (4.0-5.2) L 01/17/19 10:10 Hgb 11.2 g/dL (12.0-16.0) L 01/17/19 10:10 Hct 32.8 % (36-46) L 01/17/19 10:10 MCV 92.8 fL (80-100) 01/17/19 10:10 MCH 31.8 PG (26-34) 01/17/19 10:10 MCHC 34.2 % (30-36) 01/17/19 10:10 RDW 14.4 % (11.6-14.8) 01/17/19 10:10 Plt Count 217 X10^3/uL (150-400) 01/17/19 10:10 Neut % (Auto) 77.9 % (50-75) H 01/17/19 10:10 Lymph % (Auto) 8.4 % (25-40) L 01/17/19 10:10 [place] % (Auto) 12.2 % (3-14) 01/17/19 10:10 Eos % (Auto) 1.2 % (2-4) L 01/17/19 10:10 Baso % (Auto) 0.3 % (0-2) 01/17/19 10:10 Neut # (Auto) 3900 /uL (0333-0357) 01/17/19 10:10 Lymph # (Auto) 400 /uL (8421-3022) L 01/17/19 10:10 [place] # (Auto) 600 /uL (0-900) 01/17/19 10:10 Eos # (Auto) 100 /uL (0-450) 01/17/19 10:10 Baso # (Auto) 0 /uL (0-100) 01/17/19 10:10 Total Counted 50 07/07/18 11:12 Seg Neutrophils % 52.0 % (38-70) 07/07/18 11:12 Lymphocytes % (Manual) 22.0 % (25-45) L 07/07/18 11:12 Monocytes % (Manual) 2.0 % (2-11) 07/07/18 11:12 Eosinophils % (Manual) 22.0 % (2-4) H 07/07/18 11:12 Basophils % (Manual) 2.0 % (0-1) H 07/07/18 11:12 Neutrophils # (Manual) 1664 /uL (6104-1358) L 07/07/18 11:12 RBC Morphology Not Reportable 07/07/18 11:12 Anisocytosis 1+ H 07/07/18 11:12 Sodium 127 mmol/L (137-145) L 01/17/19 10:10 Potassium 3.4 mmol/L (3.4-5.1) 01/17/19 10:10 Chloride 92 mmol/L (98-107) L 01/17/19 10:10 Carbon Dioxide 20 mmol/L (22-32) L 01/17/19 10:10 BUN 48 mg/dL (7-17) H 01/17/19 10:10 Creatinine 6.20 mg/dL (0.52-1.04) H 01/17/19 10:10 Estimated GFR 6.5 mL/min (>60) L 01/17/19 10:10 BUN/Creatinine Ratio 7.7 (6-22) 01/17/19 10:10 Glucose 136 mg/dL (80-110) H 01/17/19 10:10 Calcium 7.4 mg/dL (8.4-10.2) L 01/17/19 10:10 Total Bilirubin 1.3 mg/dL (0.2-1.3) 01/17/19 10:10 AST 19 IU/L (14-36) 01/17/19 10:10 ALT 19 IU/L (9-52) 01/17/19 10:10 Alkaline Phosphatase 97 U/L (38-126) 01/17/19 10:10 Lactate Dehydrogenase 469 U/L (313-618) 11/01/18 15:40 Serum Total Protein 6.1 g/dL (6.1-8.1) 12/13/18 15:13 Total Protein 6.2 g/dL (6.3-8.2) L 01/17/19 10:10 Albumin 3.5 g/dL (3.5-5.0) 01/17/19 10:10 Globulin 2.7 g/dL (1.7-4.1) 01/17/19 10:10 Albumin/Globulin Ratio 1.3 (1.0-2.8) 01/17/19 10:10 Xsmmo-8-Vtyornqls 0.3 g/dL (0.2-0.3) 12/13/18 15:13 Rrtmp-8-Fwtcpceno 0.8 g/dL (0.5-0.9) 12/13/18 15:13 Tbim-9-Oeuddqov 0.4 g/dL (0.4-0.6) 12/13/18 15:13 Dsck-2-Axhxxuli 0.3 g/dL (0.2-0.5) 12/13/18 15:13 Lhqp-1-Butywakqlxmet 5.38 mg/L (< 2.52) H 11/01/18 15:40 Gamma Globulins 0.8 g/dL (0.8-1.7) 12/13/18 15:13 Abnorm Protein Band 1 Not Reportable 12/13/18 15:13 Abnorm Protein Band 2 Not Reportable 12/13/18 15:13 Abn Gamma Band 3 Serum Not Reportable 12/13/18 15:13 PEP Comment See note 12/13/18 15:13 IgG, Serum (MS) 802 mg/dL (694-1618) 11/01/18 15:40 IgA 169 mg/dL (81-463) 11/01/18 15:40 IgM 45 mg/dL (48-271) L 11/01/18 15:40 DANDRE & SPEP Interp See note 09/09/18 11:18 Free [place] Light Chains 832.5 mg/L (3.3-19.4) H 12/13/18 15:13 Free [place] Light Chain 14.7 mg/L (5.7-26.3) 12/13/18 15:13 Free [place]/Lambda Ratio 56.63 (0.26-1.65) H 12/13/18 15:13 Blood Type A Positive 11/07/18 14:35 Antibody Screen Negative 11/07/18 14:35 - Imaging Additional studies: Procedures Biopsy of bone, other bones (04/23/14) Excision of lesion of other soft tissue (01/01/12) Inspection of Upper Intestinal Tract, Via Natural or Artificial Opening Endoscopic (01/30/16) Assessment and Plan (1) Multiple myeloma Problem details: Multiple myeloma previously treated with Revlimid and multiple courses of radiation. Multiple myeloma. Her kappa free light chains have been increasing. I think she can start on her protease inhibitor once he has recovered from her acute illness. She does have recent episode of influenza. She has low-grade fevers and some mental status changes. I am worried that she may be developing an infection. Will try and arrange for direct admission. (2) Pulmonary embolus Assessment and Plan: Patient underwent lower extremity ultrasound study on 09/23/2018. No evidence of DVT found. The emboli source of the large bilateral saddle pulmonary embolism is not clear at this moment. For now, will continue Apixaban 5 mg bid (3) History of renal cell carcinoma Problem details: She had right nephrectomy 09/2008 for renal cell carcinoma, high grade, papillary, with chronic renal insufficiency. Assessment and plan: Patient has a remote history of right renal cell carcinoma status post right radical nephrectomy.
--- NOTE | 2019-01-18 10:06 | ONC.NAV ---
Description: T/C from dtr re: pt's inpt status Activity: Pt's dtr called to share that pt was transferred from the ER down to [facility], where she is currently inpt. Dtr was seeking help in finding resources for lodging and gas reimbursement for the travel, as well as counseling for emotional coping/support in terms of processing her mother's potential end of life decision making needs. COMPUTER PROGRAMMING MANAGER offered to call down and coordinate with the manager social media at [facility], however Gracie (dtr) decided that she could manage this on her own. COMPUTER PROGRAMMING MANAGER encouraged her to save all gas receipts, and that we could at least reimburse her from the [facility] Fund for that. Counselled Gracie on the availability of the Palliative Care Team at [facility] as a resource to help her/pt with decision making, and weighing what next steps are most conducive to pt/family goals moving forward. Plan: Dtr will call this COMPUTER PROGRAMMING MANAGER back after she has spoken to the team at [facility].
[2019-01-18 13:50] LABS: Free Kappa Light Chain 1688.1 mg/L (3.3-19.4); Free Kappa/ Lambda Ratio 52.04 (0.26-1.65); Free Lambda 32.4 mg/L (5.7-26.3)
[2019-01-21 00:41] LABS: Albumin 3.2 g/dL (3.8-4.8); Alpha 1 Globulin 0.4 g/dL (0.2-0.3); Alpha 2 Globulin 0.9 g/dL (0.5-0.9); Beta 1 Globulin 0.4 g/dL (0.4-0.6); Gamma Globulin 0.6 g/dL (0.8-1.7); Protein, Total 5.8 g/dL (6.1-8.1)
[2019-01-30 16:11] LABS: Add Manual Diff / Slide Review NO; Basophils Absolute Auto 100 /uL (0-100); Basophils Percent Auto 1.2 % (0-2); Eosinophils Absolute Auto 100 /uL (0-450); Eosinophils Percent Auto 1.2 % (2-4); Hematocrit 32.1 % (36-46); Hemoglobin 10.9 g/dL (12.0-16.0); Lymphocytes Absolute Auto 700 /uL (1100-4500); Lymphocytes Percent Auto 12.4 % (25-40); Mean Corpuscular HGB Conc 33.9 % (30-36); Mean Corpuscular Hemoglobin 31.6 PG (26-34); Monocytes Absolute Auto 500 /uL (0-900); Monocytes Percent Auto 9.1 % (3-14); Neutrophils Absolute Auto 4000 /uL (1500-7000); Neutrophils Percent Auto 76.1 % (50-75); Platelet Count 213 X10^3/uL (150-400); Red Blood Cell Count 3.46 X10^6/uL (4.0-5.2); Red Cell Distribution Width 14.7 % (11.6-14.8); White Blood Cell Count 5.3 X10^3/uL (4.5-11.0)
[2019-01-30 16:21] LABS: Alanine Aminotransferase 51 IU/L (9-52); Albumin 3.9 g/dL (3.5-5.0); Albumin Globulin Ratio 1.4 (1.0-2.8); Alkaline Phosphatase 99 U/L (38-126); Aspartate Aminotransferase 37 IU/L (14-36); Bilirubin Total 0.4 mg/dL (0.2-1.3); Blood Urea Nitrogen 24 mg/dL (7-17); Calcium 8.6 mg/dL (8.4-10.2); Carbon Dioxide 24 mmol/L (22-32); Chloride 100 mmol/L (98-107); Estimated Glomerular Filt Rate 43.2 mL/min (>60); Globulin 2.7 g/dL (1.7-4.1); Glucose 219 mg/dL (80-110); HEMOLYSIS < 15 (0-50); Lactate Dehydrogenase 457 U/L (313-618); Potassium 2.8 mmol/L (3.4-5.1); Sodium 137 mmol/L (137-145); Total Protein 6.6 g/dL (6.3-8.2)
[2019-02-01 12:50] LABS: Beta-2-Microglobulin 5.28 mg/L (< 2.52)
[2019-02-01 14:13] LABS: Immunoglobulin M, Quantitative 39 mg/dL (48-271)
[2019-02-01 14:13] LABS: Immunoglobulin A 131 mg/dL (81-463)
[2019-02-01 14:18] LABS: Immunoglobulin A 134 mg/dL (81-463); Immunoglobulin G, Quantitative 680 mg/dL (694-1618)
[2019-02-01 14:59] LABS: Free Kappa Light Chain 1153.2 mg/L (3.3-19.4); Free Kappa/ Lambda Ratio 61.24 (0.26-1.65); Free Lambda 18.8 mg/L (5.7-26.3)
[2019-02-01 21:46] LABS: Albumin 3.5 g/dL (3.8-4.8); Alpha 1 Globulin 0.3 g/dL (0.2-0.3); Alpha 2 Globulin 0.9 g/dL (0.5-0.9); Beta 1 Globulin 0.4 g/dL (0.4-0.6); Gamma Globulin 0.7 g/dL (0.8-1.7); Protein, Total 6.1 g/dL (6.1-8.1)
[2019-02-07 15:21] VITALS: BP 108/68; PULSE 100; TEMP 36.8; O2SAT 100
--- NOTE | 2019-02-07 18:11 | ONC.PN ---
PN -Subjective Interval history: Diagnosis: Multiple myeloma Previous treatment: 1. 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 Progression to multiple myeloma started treatment with Revlimid and dexamethasone in March 2014. She later transitioned to Revlimid only at a dose of 15 mg/day. 3. Radiation therapy to the 6th rib, T11-L2, cervical spine and left ilium in May 2014 4. Radiation therapy to the right humerus finishing in October 2014 5. Radiation therapy to T7 and T12 in May 2015 6. Another course of radiation to the right humerus in June 2015 7. Another course of radiation to the spine from T9 through L1 in January 2016 8. 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 Radiation therapy to the right hip in October 2018. Interval history: The patient is an 78-year-old woman with a longstanding history of multiple myeloma. She has previously been treated with Revlimid and had been stable for many years although did have multiple courses of radiation to areas of progression over that time. She previously has been on Zometa but can't remember how long ago at stopped. At her last visit here, she was feeling quite poorly with the generalized weakness nausea vomiting shortness of breath and edema. she was found to be in acute renal failure and was hospitalized. She was transferred to [place]. Eventually, her kidney function did review returned to normal without the need for dialysis. She was also found to have an Enterococcus UTI. Her serum free light chains were elevated. She did start on Ninlaro as well as dexamethasone. Since her hospital discharge, she has been staying in a half-way. She has been working with physical therapy and is able to walk a short distance but is still quite debilitated. She does feel like she is making some progress. She has not had any further fevers or chills. No shortness of breath or cough. She does have some nausea and has had some diarrhea. She notes about 3 loose stools a day. There has been no blood in the stool. She seems otherwise to be tolerating the Ninlaro without too much difficulty. This is her week off and she is due to resume treatment next week. Of note, she had right nephrectomy 09/2008 for renal cell carcinoma, high grade papillary, with chronic renal insufficiency. Home Medications and Allergies Home Medications Medication Instructions Recorded Confirmed Type multivitamin [Multiple Vitamins] 1 tab PO QDAY #0 05/12/17 02/07/19 History propranolol 160 mg PO QAM #0 01/14/18 02/07/19 History albuterol sulfate 1 neb INH QID #0 02/12/18 01/25/19 History clobetasol-emollient 0.05 pump TOPICAL BID #0 02/12/18 01/25/19 History guaifenesin 600 mg PO BID #0 02/12/18 01/25/19 History levothyroxine 150 mcg PO DAILY 03/30/18 01/25/19 History melatonin 1 mg PO BEDTIME PRN 03/30/18 02/07/19 History omeprazole 20 mg PO DAILY 03/30/18 02/07/19 History sertraline 100 mg PO DAILY 03/30/18 02/07/19 History acetaminophen 650 mg PO Q8H 01/25/19 01/25/19 History acyclovir 200 mg PO BID 01/25/19 01/25/19 History albuterol sulfate 3 ml INHALATION Q4H PRN 01/25/19 01/25/19 History benzonatate 100 mg PO TID PRN 01/25/19 01/25/19 History cyanocobalamin (vitamin B-12) 1,000 mcg PO DAILY 01/25/19 01/25/19 History diclofenac sodium 0.5 g TOPICAL BID 01/25/19 01/25/19 History insulin glargine 5 units SUBCUT DAILY 01/25/19 01/25/19 History propranolol 80 mg PO 1200,1500 01/25/19 02/07/19 History dexamethasone 20 mg PO [place]@0900 #10 tab 01/27/19 Rx enoxaparin [Lovenox] 90 mg SUBCUT BID #20 ml 01/27/19 Rx ixazomib 4 mg PO QWEEK #0 cap 01/27/19 01/25/19 Rx oxycodone-acetaminophen 1 tab PO Q4H PRN #20 tab MDD 01/27/19 02/07/19 Rx 4000mg acetaminophen warfarin [Coumadin] 3 mg PO 1700 02/07/19 02/07/19 History Allergies Allergy/AdvReac Type Severity Reaction Status Date / Time morphine Allergy Severe STROKE Verified 04/20/18 13:22 LIKE SYMPTOMS levofloxacin Allergy Intermediate HIVES Verified 04/20/18 13:22 adhesive [ADHESIVE] Allergy Mild BLISTERS Verified 04/20/18 13:22 celecoxib Allergy Mild RASH, Verified 04/20/18 13:22 SMALL BLISTERS, NAUSEA Penicillins Allergy Mild RASH Verified 04/20/18 13:22 phenazopyridine Allergy Mild VOMITING Verified 04/20/18 13:22 [From PYRIDIUM] Sulfa (Sulfonamide Allergy Mild BLISTERS Verified 04/20/18 13:22 Antibiotics) lactose [LACTOSE] Allergy Unknown Verified 04/20/18 13:22 Exam Vital signs: Vital Signs Temp Pulse BP Pulse Ox 02/07/19 15:21 98.2 F 100 H 108/68 100 Intake and Output 02/07/19 02/07/19 02/07/19 07:59 15:59 23:59 Other: Weight 82.1 kg Patient Weight 02/07/19 23:59 Weight 82.1 kg - Constitutional positive no acute distress, positive obese - Routine HEENT Exam Head: Present: normocephalic, atraumatic Eye: Present: EOMI, PERRL. Absent: conjunctival icterus, scleral injection ENT: Present: mucous membranes moist, oropharynx clear - Routine Neck Exam Present: supple. Absent: lymphadenopathy, thyromegaly - Routine Respiratory Exam Present: Clear to auscultation bilaterally. Absent: rales, wheezes - Routine Cardiovascular Exam Present: RRR, S1, S2. Absent: murmur - Routine Abdominal Exam Present: soft, normoactive bowel sounds. Absent: tenderness, organomegaly Comments: She does have some ecchymoses on her abdomen at the sites of Lovenox injections. - Routine Skin Exam Present: intact. Absent: rash - Routine Neurological Exam Present: alert, oriented X3 - Routine Psychiatric Exam Present: normal affect, normal thought process Results - Labs Laboratory Last Values WBC 5.3 X10^3/uL (4.5-11.0) 01/30/19 15:34 RBC 3.46 X10^6/uL (4.0-5.2) L 01/30/19 15:34 Hgb 10.9 g/dL (12.0-16.0) L 01/30/19 15:34 Hct 32.1 % (36-46) L 01/30/19 15:34 MCV 93.0 fL (80-100) 01/30/19 15:34 MCH 31.6 PG (26-34) 01/30/19 15:34 MCHC 33.9 % (30-36) 01/30/19 15:34 RDW 14.7 % (11.6-14.8) 01/30/19 15:34 Plt Count 213 X10^3/uL (150-400) 01/30/19 15:34 Neut % (Auto) 76.1 % (50-75) H 01/30/19 15:34 Lymph % (Auto) 12.4 % (25-40) L 01/30/19 15:34 Lyman % (Auto) 9.1 % (3-14) 01/30/19 15:34 Eos % (Auto) 1.2 % (2-4) L 01/30/19 15:34 Baso % (Auto) 1.2 % (0-2) 01/30/19 15:34 Neut # (Auto) 4000 /uL (8569-9870) 01/30/19 15:34 Lymph # (Auto) 700 /uL (5079-8353) L 01/30/19 15:34 Lyman # (Auto) 500 /uL (0-900) 01/30/19 15:34 Eos # (Auto) 100 /uL (0-450) 01/30/19 15:34 Baso # (Auto) 100 /uL (0-100) 01/30/19 15:34 Total Counted 50 07/07/18 11:12 Seg Neutrophils % 52.0 % (38-70) 07/07/18 11:12 Lymphocytes % (Manual) 22.0 % (25-45) L 07/07/18 11:12 Monocytes % (Manual) 2.0 % (2-11) 07/07/18 11:12 Eosinophils % (Manual) 22.0 % (2-4) H 07/07/18 11:12 Basophils % (Manual) 2.0 % (0-1) H 07/07/18 11:12 Neutrophils # (Manual) 1664 /uL (5857-9328) L 07/07/18 11:12 RBC Morphology Not Reportable 07/07/18 11:12 Anisocytosis 1+ H 07/07/18 11:12 Sodium 137 mmol/L (137-145) 01/30/19 15:34 Potassium 2.8 mmol/L (3.4-5.1) L 01/30/19 15:34 Chloride 100 mmol/L (98-107) 01/30/19 15:34 Carbon Dioxide 24 mmol/L (22-32) 01/30/19 15:34 BUN 24 mg/dL (7-17) H 01/30/19 15:34 Creatinine 1.20 mg/dL (0.52-1.04) H 01/30/19 15:34 Estimated GFR 43.2 mL/min (>60) L 01/30/19 15:34 BUN/Creatinine Ratio 20.0 (6-22) 01/30/19 15:34 Glucose 219 mg/dL (80-110) H 01/30/19 15:34 Calcium 8.6 mg/dL (8.4-10.2) 01/30/19 15:34 Total Bilirubin 0.4 mg/dL (0.2-1.3) 01/30/19 15:34 AST 37 IU/L (14-36) H 01/30/19 15:34 ALT 51 IU/L (9-52) 01/30/19 15:34 Alkaline Phosphatase 99 U/L (38-126) 01/30/19 15:34 Lactate Dehydrogenase 457 U/L (313-618) 01/30/19 15:34 Serum Total Protein 6.1 g/dL (6.1-8.1) 01/30/19 15:34 Total Protein 6.6 g/dL (6.3-8.2) 01/30/19 15:34 Albumin 3.5 g/dL (3.8-4.8) L 01/30/19 15:34 Globulin 2.7 g/dL (1.7-4.1) 01/30/19 15:34 Albumin/Globulin Ratio 1.4 (1.0-2.8) 01/30/19 15:34 Qiwmw-0-Ydnehloqm 0.3 g/dL (0.2-0.3) 01/30/19 15:34 Rwizb-4-Bquxbhjan 0.9 g/dL (0.5-0.9) 01/30/19 15:34 Dzcd-4-Kvwuyzck 0.4 g/dL (0.4-0.6) 01/30/19 15:34 Jmbu-6-Braqnsgb 0.3 g/dL (0.2-0.5) 01/30/19 15:34 Nthn-8-Hagpdhjwbomuz 5.28 mg/L (< 2.52) H 01/30/19 15:34 Gamma Globulins 0.7 g/dL (0.8-1.7) L 01/30/19 15:34 Abnorm Protein Band 1 Not Reportable 01/30/19 15:34 Abnorm Protein Band 2 Not Reportable 01/30/19 15:34 Abn Gamma Band 3 Serum Not Reportable 01/30/19 15:34 PEP Comment See note 01/30/19 15:34 IgG, Serum (MS) 680 mg/dL (694-1618) L 01/30/19 15:34 IgA 131 mg/dL (81-463) 01/30/19 15:59 IgM 39 mg/dL (48-271) L 01/30/19 15:34 DANDRE & SPEP Interp See note 01/17/19 10:10 Free [place] Light Chains 1153.2 mg/L (3.3-19.4) H 01/30/19 15:34 Free Lambda Light Chain 18.8 mg/L (5.7-26.3) 01/30/19 15:34 Free [place]/Lambda Ratio 61.24 (0.26-1.65) H 01/30/19 15:34 Blood Type A Positive 11/07/18 14:35 Antibody Screen Negative 11/07/18 14:35 - Imaging Additional studies: Procedures Biopsy of bone, other bones (04/23/14) Excision of lesion of other soft tissue (01/01/12) Inspection of Upper Intestinal Tract, Via Natural or Artificial Opening Endoscopic (01/30/16) Assessment and Plan (1) Multiple myeloma Problem details: Multiple myeloma previously treated with Revlimid and multiple courses of radiation. Multiple myeloma. She has recently started on Ninlaro and dexamethasone. Her kappa light chains have decreased from 1688 to 1153. Its difficult to tell how much is due to the medication and how much is due to improvement in her renal function. Nevertheless, she seems to be tolerating the medication adequately. It may perhaps be contributing to her diarrhea. She will continue with her current regimen and return to clinic in about a month for follow-up. If her light chains continue to improve at a reasonable pace, we will continue with her current regimen. If she is having a slow response or stable disease, we may want to consider adding additional drugs such as pomalidomide or perhaps oral Cytoxan. (2) Pulmonary embolus Assessment and Plan: Patient underwent lower extremity ultrasound study on 09/23/2018. No evidence of DVT found. The emboli source of the large bilateral saddle pulmonary embolism is not clear at this moment. Because of her renal insufficient she she was on Lovenox and is now on Coumadin. (3) History of renal cell carcinoma Problem details: She had right nephrectomy 09/2008 for renal cell carcinoma, high grade, papillary, with chronic renal insufficiency. Assessment and plan: Patient has a remote history of right renal cell carcinoma status post right radical nephrectomy.
--- NOTE | 2019-02-07 18:17 | P.PNONC_ITS ---
PN -Subjective Interval history: Diagnosis: Multiple myeloma Previous treatment: 1. 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 Progression to multiple myeloma started treatment with Revlimid and dexamethasone in March 2014. She later transitioned to Revlimid only at a dose of 15 mg/day. 3. Radiation therapy to the 6th rib, T11-L2, cervical spine and left ilium in May 2014 4. Radiation therapy to the right humerus finishing in October 2014 5. Radiation therapy to T7 and T12 in May 2015 6. Another course of radiation to the right humerus in June 2015 7. Another course of radiation to the spine from T9 through L1 in January 2016 8. 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 Radiation therapy to the right hip in October 2018. Interval history: The patient is an 78-year-old woman with a longstanding history of multiple myeloma. She has previously been treated with Revlimid and had been stable for many years although did have multiple courses of radiation to areas of progression over that time. She previously has been on Zometa but can't remember how long ago at stopped. At her last visit here, she was feeling quite poorly with the generalized weakness nausea vomiting shortness of breath and edema. she was found to be in acute renal failure and was hospitalized. She was transferred to [place]. Eventually, her kidney function did review returned to normal without the need for dialysis. She was also found to have an Enterococcus UTI. Her serum free light chains were elevated. She did start on Ninlaro as well as dexamethasone. Since her hospital discharge, she has been staying in a [facility]. She has been working with physical therapy and is able to walk a short distance but is still quite debilitated. She does feel like she is making some progress. She has not had any further fevers or chills. No shortness of breath or cough. She does have some nausea and has had some diarrhea. She notes about 3 loose stools a day. There has been no blood in the stool. She seems otherwise to be tolerating the Ninlaro without too much difficulty. This is her week off and she is due to resume treatment next week. Of note, she had right nephrectomy 09/2008 for renal cell carcinoma, high grade papillary, with chronic renal insufficiency. Home Medications and Allergies Home Medications Medication Instructions Recorded Confirmed Type multivitamin [Multiple Vitamins] 1 tab PO QDAY #0 05/12/17 02/07/19 History propranolol 160 mg PO QAM #0 01/14/18 02/07/19 History albuterol sulfate 1 neb INH QID #0 02/12/18 01/25/19 History clobetasol-emollient 0.05 pump TOPICAL BID #0 02/12/18 01/25/19 History guaifenesin 600 mg PO BID #0 02/12/18 01/25/19 History levothyroxine 150 mcg PO DAILY 03/30/18 01/25/19 History melatonin 1 mg PO BEDTIME PRN 03/30/18 02/07/19 History omeprazole 20 mg PO DAILY 03/30/18 02/07/19 History sertraline 100 mg PO DAILY 03/30/18 02/07/19 History acetaminophen 650 mg PO Q8H 01/25/19 01/25/19 History acyclovir 200 mg PO BID 01/25/19 01/25/19 History albuterol sulfate 3 ml INHALATION Q4H PRN 01/25/19 01/25/19 History benzonatate 100 mg PO TID PRN 01/25/19 01/25/19 History cyanocobalamin (vitamin B-12) 1,000 mcg PO DAILY 01/25/19 01/25/19 History diclofenac sodium 0.5 g TOPICAL BID 01/25/19 01/25/19 History insulin glargine 5 units SUBCUT DAILY 01/25/19 01/25/19 History propranolol 80 mg PO 1200,1500 01/25/19 02/07/19 History dexamethasone 20 mg PO [place]@0900 #10 tab 01/27/19 Rx enoxaparin [Lovenox] 90 mg SUBCUT BID #20 ml 01/27/19 Rx ixazomib 4 mg PO QWEEK #0 cap 01/27/19 01/25/19 Rx oxycodone-acetaminophen 1 tab PO Q4H PRN #20 tab MDD 01/27/19 02/07/19 Rx 4000mg acetaminophen warfarin [Coumadin] 3 mg PO 1700 02/07/19 02/07/19 History Allergies Allergy/AdvReac Type Severity Reaction Status Date / Time morphine Allergy Severe STROKE Verified 04/20/18 13:22 LIKE SYMPTOMS levofloxacin Allergy Intermediate HIVES Verified 04/20/18 13:22 adhesive [ADHESIVE] Allergy Mild BLISTERS Verified 04/20/18 13:22 celecoxib Allergy Mild RASH, Verified 04/20/18 13:22 SMALL BLISTERS, NAUSEA Penicillins Allergy Mild RASH Verified 04/20/18 13:22 phenazopyridine Allergy Mild VOMITING Verified 04/20/18 13:22 [From PYRIDIUM] Sulfa (Sulfonamide Allergy Mild BLISTERS Verified 04/20/18 13:22 Antibiotics) lactose [LACTOSE] Allergy Unknown Verified 04/20/18 13:22 Exam Vital signs: Vital Signs Temp Pulse BP Pulse Ox 02/07/19 15:21 98.2 F 100 H 108/68 100 Intake and Output 02/07/19 02/07/19 02/07/19 07:59 15:59 23:59 Other: Weight 82.1 kg Patient Weight 02/07/19 23:59 Weight 82.1 kg - Constitutional positive no acute distress, positive obese - Routine HEENT Exam Head: Present: normocephalic, atraumatic Eye: Present: EOMI, PERRL. Absent: conjunctival icterus, scleral injection ENT: Present: mucous membranes moist, oropharynx clear - Routine Neck Exam Present: supple. Absent: lymphadenopathy, thyromegaly - Routine Respiratory Exam Present: Clear to auscultation bilaterally. Absent: rales, wheezes - Routine Cardiovascular Exam Present: RRR, S1, S2. Absent: murmur - Routine Abdominal Exam Present: soft, normoactive bowel sounds. Absent: tenderness, organomegaly Comments: She does have some ecchymoses on her abdomen at the sites of Lovenox injections. - Routine Skin Exam Present: intact. Absent: rash - Routine Neurological Exam Present: alert, oriented X3 - Routine Psychiatric Exam Present: normal affect, normal thought process Results - Labs Laboratory Last Values WBC 5.3 X10^3/uL (4.5-11.0) 01/30/19 15:34 RBC 3.46 X10^6/uL (4.0-5.2) L 01/30/19 15:34 Hgb 10.9 g/dL (12.0-16.0) L 01/30/19 15:34 Hct 32.1 % (36-46) L 01/30/19 15:34 MCV 93.0 fL (80-100) 01/30/19 15:34 MCH 31.6 PG (26-34) 01/30/19 15:34 MCHC 33.9 % (30-36) 01/30/19 15:34 RDW 14.7 % (11.6-14.8) 01/30/19 15:34 Plt Count 213 X10^3/uL (150-400) 01/30/19 15:34 Neut % (Auto) 76.1 % (50-75) H 01/30/19 15:34 Lymph % (Auto) 12.4 % (25-40) L 01/30/19 15:34 Yell % (Auto) 9.1 % (3-14) 01/30/19 15:34 Eos % (Auto) 1.2 % (2-4) L 01/30/19 15:34 Baso % (Auto) 1.2 % (0-2) 01/30/19 15:34 Neut # (Auto) 4000 /uL (8793-6522) 01/30/19 15:34 Lymph # (Auto) 700 /uL (9139-2860) L 01/30/19 15:34 Yell # (Auto) 500 /uL (0-900) 01/30/19 15:34 Eos # (Auto) 100 /uL (0-450) 01/30/19 15:34 Baso # (Auto) 100 /uL (0-100) 01/30/19 15:34 Total Counted 50 07/07/18 11:12 Seg Neutrophils % 52.0 % (38-70) 07/07/18 11:12 Lymphocytes % (Manual) 22.0 % (25-45) L 07/07/18 11:12 Monocytes % (Manual) 2.0 % (2-11) 07/07/18 11:12 Eosinophils % (Manual) 22.0 % (2-4) H 07/07/18 11:12 Basophils % (Manual) 2.0 % (0-1) H 07/07/18 11:12 Neutrophils # (Manual) 1664 /uL (3110-5529) L 07/07/18 11:12 RBC Morphology Not Reportable 07/07/18 11:12 Anisocytosis 1+ H 07/07/18 11:12 Sodium 137 mmol/L (137-145) 01/30/19 15:34 Potassium 2.8 mmol/L (3.4-5.1) L 01/30/19 15:34 Chloride 100 mmol/L (98-107) 01/30/19 15:34 Carbon Dioxide 24 mmol/L (22-32) 01/30/19 15:34 BUN 24 mg/dL (7-17) H 01/30/19 15:34 Creatinine 1.20 mg/dL (0.52-1.04) H 01/30/19 15:34 Estimated GFR 43.2 mL/min (>60) L 01/30/19 15:34 BUN/Creatinine Ratio 20.0 (6-22) 01/30/19 15:34 Glucose 219 mg/dL (80-110) H 01/30/19 15:34 Calcium 8.6 mg/dL (8.4-10.2) 01/30/19 15:34 Total Bilirubin 0.4 mg/dL (0.2-1.3) 01/30/19 15:34 AST 37 IU/L (14-36) H 01/30/19 15:34 ALT 51 IU/L (9-52) 01/30/19 15:34 Alkaline Phosphatase 99 U/L (38-126) 01/30/19 15:34 Lactate Dehydrogenase 457 U/L (313-618) 01/30/19 15:34 Serum Total Protein 6.1 g/dL (6.1-8.1) 01/30/19 15:34 Total Protein 6.6 g/dL (6.3-8.2) 01/30/19 15:34 Albumin 3.5 g/dL (3.8-4.8) L 01/30/19 15:34 Globulin 2.7 g/dL (1.7-4.1) 01/30/19 15:34 Albumin/Globulin Ratio 1.4 (1.0-2.8) 01/30/19 15:34 Jkebq-7-Pdyxgjlbs 0.3 g/dL (0.2-0.3) 01/30/19 15:34 Ardvd-7-Kafpcbfxz 0.9 g/dL (0.5-0.9) 01/30/19 15:34 Vzkj-3-Shfvggum 0.4 g/dL (0.4-0.6) 01/30/19 15:34 Scmu-3-Nyhgjmir 0.3 g/dL (0.2-0.5) 01/30/19 15:34 Qhdn-8-Zqybqwckdqrrc 5.28 mg/L (< 2.52) H 01/30/19 15:34 Gamma Globulins 0.7 g/dL (0.8-1.7) L 01/30/19 15:34 Abnorm Protein Band 1 Not Reportable 01/30/19 15:34 Abnorm Protein Band 2 Not Reportable 01/30/19 15:34 Abn Gamma Band 3 Serum Not Reportable 01/30/19 15:34 PEP Comment See note 01/30/19 15:34 IgG, Serum (MS) 680 mg/dL (694-1618) L 01/30/19 15:34 IgA 131 mg/dL (81-463) 01/30/19 15:59 IgM 39 mg/dL (48-271) L 01/30/19 15:34 DANDRE & SPEP Interp See note 01/17/19 10:10 Free [place] Light Chains 1153.2 mg/L (3.3-19.4) H 01/30/19 15:34 Free Lambda Light Chain 18.8 mg/L (5.7-26.3) 01/30/19 15:34 Free [place]/Lambda Ratio 61.24 (0.26-1.65) H 01/30/19 15:34 Blood Type A Positive 11/07/18 14:35 Antibody Screen Negative 11/07/18 14:35 - Imaging Additional studies: Procedures Biopsy of bone, other bones (04/23/14) Excision of lesion of other soft tissue (01/01/12) Inspection of Upper Intestinal Tract, Via Natural or Artificial Opening Endoscopic (01/30/16) Assessment and Plan (1) Multiple myeloma Problem details: Multiple myeloma previously treated with Revlimid and multiple courses of radiation. Multiple myeloma. She has recently started on Ninlaro and dexamethasone. Her kappa light chains have decreased from 1688 to 1153. Its difficult to tell how much is due to the medication and how much is due to improvement in her renal function. Nevertheless, she seems to be tolerating the medication adequately. It may perhaps be contributing to her diarrhea. She will continue with her current regimen and return to clinic in about a month for follow-up. If her light chains continue to improve at a reasonable pace, we will continue with her current regimen. If she is having a slow response or stable disease, we may want to consider adding additional drugs such as pomalidomide or perhaps oral Cytoxan. (2) Pulmonary embolus Assessment and Plan: Patient underwent lower extremity ultrasound study on 09/23/2018. No evidence of DVT found. The emboli source of the large bilateral saddle pulmonary embolism is not clear at this moment. Because of her renal insufficient she she was on Lovenox and is now on Coumadin. (3) History of renal cell carcinoma Problem details: She had right nephrectomy 09/2008 for renal cell carcinoma, high grade, papillary, with chronic renal insufficiency. Assessment and plan: Patient has a remote history of right renal cell carcinoma status post right radical nephrectomy.
--- NOTE | 2019-02-08 10:55 | PC.NURSE ---
Pt seen by Dr. Rousseau yesterday, daughter present at visit. Pt's daughter, Gracie, called and wanted this poem writer to pass on some information to Dr. Rousseau. According to pt's daughter during appt w/ Dr. Rousseau pt reported being compliant with chemo medications. However, Gracie reports that after returning pt to [facility] after appt, where pt currently resides, a staff memeber pulled Gracie to the side to speak to her privately. Acccording to Gracie, the staff member told her the pt was refusing to take her most of her medications. Per Gracie, the staff reports pt has been refusing her Coumadin, dexamethesone, chemos meds, insulin and others. Gracie also reports pt has become delusional at times and difficult to handle at the [facility]. This poem writer explained to Gracie that it is within the pt's right to refuse medications and treatment, Gracie verbalized understanding. Further explained to Gracie that I would inform Dr. Rousseau of this information.
--- NOTE | 2019-02-13 13:24 | ONC.NAV ---
Description: T/C from daughter w/concerns Activity: Pt's dtr, Gracie, called to express concerns about pt's decisions to refuse all care and therapies at [facility]. Pt has not been taking any of her meds, including her oral chemotherapy. Dtr states that staff report pt has been delusional, aggressive towards staff, and has demonstrated a marked decline in her mentation overall. Dtr is feeling afraid about pt being discharged back home, due to non-compliance in rehab, and was looking for direction from this ASSOCIATE SOFTWARE APPLICATION ENGINEER. ASSOCIATE SOFTWARE APPLICATION ENGINEER encouraged her to go back to the facility and request that their social welfare clerk person do an APS report based on their concerns and observations, and that this will help start the process to get assistance about her complete inability to take care of herself in an independent situation. ASSOCIATE SOFTWARE APPLICATION ENGINEER will also call and request records from [facility], and request that Dr. Rousseau review and advise the team on next steps in terms of her oncologic care plan moving forward.
[2019-02-28 14:46] LABS: Add Manual Diff / Slide Review NO; Basophils Absolute Auto 0 /uL (0-100); Basophils Percent Auto 0.7 % (0-2); Eosinophils Absolute Auto 100 /uL (0-450); Eosinophils Percent Auto 1.5 % (2-4); Hematocrit 30.7 % (36-46); Lymphocytes Absolute Auto 800 /uL (1100-4500); Mean Corpuscular HGB Conc 32.6 % (30-36); Mean Corpuscular Hemoglobin 31.2 PG (26-34); Mean Corpuscular Volume 95.7 fL (80-100); Monocytes Absolute Auto 600 /uL (0-900); Monocytes Percent Auto 13.3 % (3-14); Neutrophils Absolute Auto 3200 /uL (1500-7000); Neutrophils Percent Auto 67.5 % (50-75); Platelet Count 170 X10^3/uL (150-400); Red Blood Cell Count 3.21 X10^6/uL (4.0-5.2); Red Cell Distribution Width 16.1 % (11.6-14.8); White Blood Cell Count 4.7 X10^3/uL (4.5-11.0)
[2019-02-28 14:58] LABS: Alanine Aminotransferase 24 IU/L (9-52); Albumin 3.8 g/dL (3.5-5.0); Albumin Globulin Ratio 1.4 (1.0-2.8); Alkaline Phosphatase 88 U/L (38-126); Aspartate Aminotransferase 20 IU/L (14-36); BUN Creatinine Ratio 14.8 (6-22); Bilirubin Total 0.5 mg/dL (0.2-1.3); Blood Urea Nitrogen 34 mg/dL (7-17); Calcium 8.8 mg/dL (8.4-10.2); Carbon Dioxide 23 mmol/L (22-32); Chloride 103 mmol/L (98-107); Estimated Glomerular Filt Rate 20.4 mL/min (>60); Globulin 2.8 g/dL (1.7-4.1); Glucose 156 mg/dL (80-110); HEMOLYSIS < 15 (0-50); Potassium 4.8 mmol/L (3.4-5.1); Sodium 136 mmol/L (137-145); Total Protein 6.6 g/dL (6.3-8.2)
[2019-03-02 22:13] LABS: Albumin 3.4 g/dL (3.8-4.8); Alpha 1 Globulin 0.3 g/dL (0.2-0.3); Alpha 2 Globulin 0.9 g/dL (0.5-0.9); Beta 1 Globulin 0.4 g/dL (0.4-0.6); Gamma Globulin 0.6 g/dL (0.8-1.7); Protein, Total 5.9 g/dL (6.1-8.1)
[2019-03-07 13:32] VITALS: BP 120/69; PULSE 100; RESP 20; TEMP 36.5
--- NOTE | 2019-03-07 14:09 | ONC.PN ---
PN -Subjective Interval history: Diagnosis: Multiple myeloma Previous treatment: 1. 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 Progression to multiple myeloma started treatment with Revlimid and dexamethasone in March 2014. She later transitioned to Revlimid only at a dose of 15 mg/day. 3. Radiation therapy to the 6th rib, T11-L2, cervical spine and left ilium in May 2014 4. Radiation therapy to the right humerus finishing in October 2014 5. Radiation therapy to T7 and T12 in May 2015 6. Another course of radiation to the right humerus in June 2015 7. Another course of radiation to the spine from T9 through L1 in January 2016 8. 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 Radiation therapy to the right hip in October 2018. 10. Ninlaro and dexamethasone weekly beginning in January 2019 Interval history: The patient is an 78-year-old woman with a longstanding history of multiple myeloma. Since her last visit here, she has been feeling about the same. She has been working with physical therapy. They have been putting some tape on her back which has been helping with her pain. She has been using an occasional oxycodone. She denies any other new aches or pains. She seems to be tolerating her oral chemotherapy without too much difficulty. She denies any nausea or vomiting. She has not noticed any diarrhea. No worsening neuropathy. She denies any fevers chills or sweats. Her appetite has been low but stable. She tells me that she is drinking plenty of fluids. She believe she is making a normal amount of urine but has noticed some change in the color. She denies any shortness of breath or cough. No adenopathy. She denies any other changes in her health. Of note, she had right nephrectomy 09/2008 for renal cell carcinoma, high grade papillary, with chronic renal insufficiency. Home Medications and Allergies Home Medications Medication Instructions Recorded Confirmed Type multivitamin [Multiple Vitamins] 1 tab PO QDAY #0 05/12/17 02/07/19 History propranolol 160 mg PO QAM #0 01/14/18 02/07/19 History albuterol sulfate 1 neb INH QID #0 02/12/18 01/25/19 History clobetasol-emollient 0.05 pump TOPICAL BID #0 02/12/18 01/25/19 History guaifenesin 600 mg PO BID #0 02/12/18 01/25/19 History levothyroxine 150 mcg PO DAILY 03/30/18 01/25/19 History melatonin 1 mg PO BEDTIME PRN 03/30/18 02/07/19 History omeprazole 20 mg PO DAILY 03/30/18 02/07/19 History sertraline 100 mg PO DAILY 03/30/18 02/07/19 History acetaminophen 650 mg PO Q8H 01/25/19 01/25/19 History acyclovir 200 mg PO BID 01/25/19 01/25/19 History albuterol sulfate 3 ml INHALATION Q4H PRN 01/25/19 01/25/19 History benzonatate 100 mg PO TID PRN 01/25/19 01/25/19 History cyanocobalamin (vitamin B-12) 1,000 mcg PO DAILY 01/25/19 01/25/19 History diclofenac sodium 0.5 g TOPICAL BID 01/25/19 01/25/19 History insulin glargine 5 units SUBCUT DAILY 01/25/19 01/25/19 History propranolol 80 mg PO 1200,1500 01/25/19 02/07/19 History dexamethasone 20 mg PO [place]@0900 #10 tab 01/27/19 Rx enoxaparin [Lovenox] 90 mg SUBCUT BID #20 ml 01/27/19 Rx ixazomib 4 mg PO QWEEK #0 cap 01/27/19 01/25/19 Rx oxycodone-acetaminophen 1 tab PO Q4H PRN #20 tab MDD 01/27/19 02/07/19 Rx 4000mg acetaminophen warfarin [Coumadin] 3 mg PO 1700 02/07/19 02/07/19 History Allergies Allergy/AdvReac Type Severity Reaction Status Date / Time morphine Allergy Severe STROKE Verified 04/20/18 13:22 LIKE SYMPTOMS levofloxacin Allergy Intermediate HIVES Verified 04/20/18 13:22 adhesive [ADHESIVE] Allergy Mild BLISTERS Verified 04/20/18 13:22 celecoxib Allergy Mild RASH, Verified 04/20/18 13:22 SMALL BLISTERS, NAUSEA Penicillins Allergy Mild RASH Verified 04/20/18 13:22 phenazopyridine Allergy Mild VOMITING Verified 04/20/18 13:22 [From PYRIDIUM] Sulfa (Sulfonamide Allergy Mild BLISTERS Verified 04/20/18 13:22 Antibiotics) lactose [LACTOSE] Allergy Unknown Verified 04/20/18 13:22 Exam Vital signs: Vital Signs Temp Pulse Resp BP 03/07/19 13:32 97.7 F 100 H 20 120/69 Intake and Output 03/06/19 03/07/19 03/07/19 23:59 07:59 15:59 Other: Weight 87.6 kg Patient Weight 03/07/19 23:59 Weight 87.6 kg - Constitutional positive no acute distress, positive average body habitus Comments: She is in a wheelchair chronically ill-appearing but in no acute distress. - Routine HEENT Exam Head: Present: normocephalic, atraumatic Eye: Present: EOMI, PERRL. Absent: conjunctival icterus, scleral injection ENT: Present: mucous membranes moist, oropharynx clear - Routine Neck Exam Present: supple. Absent: lymphadenopathy, thyromegaly - Routine Respiratory Exam Present: Clear to auscultation bilaterally. Absent: rales, wheezes - Routine Cardiovascular Exam Present: RRR, S1, S2. Absent: murmur - Routine Abdominal Exam Present: soft, normoactive bowel sounds. Absent: tenderness, organomegaly, mass - Routine Extremities Exam Absent: cyanosis, clubbing - Routine Back/Spine Exam Back/Spine: Absent: paraspinal tenderness, vertebral tenderness - Routine Skin Exam Present: intact. Absent: petechiae, rash - Routine Neurological Exam Present: alert, oriented X3 Results - Labs Laboratory Last Values WBC 4.7 X10^3/uL (4.5-11.0) 02/28/19 09:02 RBC 3.21 X10^6/uL (4.0-5.2) L 02/28/19 09:02 Hgb 10.0 g/dL (12.0-16.0) L 02/28/19 09:02 Hct 30.7 % (36-46) L 02/28/19 09:02 MCV 95.7 fL (80-100) 02/28/19 09:02 MCH 31.2 PG (26-34) 02/28/19 09:02 MCHC 32.6 % (30-36) 02/28/19 09:02 RDW 16.1 % (11.6-14.8) H 02/28/19 09:02 Plt Count 170 X10^3/uL (150-400) 02/28/19 09:02 Neut % (Auto) 67.5 % (50-75) 02/28/19 09:02 Lymph % (Auto) 17.0 % (25-40) L 02/28/19 09:02 [place] % (Auto) 13.3 % (3-14) 02/28/19 09:02 Eos % (Auto) 1.5 % (2-4) L 02/28/19 09:02 Baso % (Auto) 0.7 % (0-2) 02/28/19 09:02 Neut # (Auto) 3200 /uL (2905-1512) 02/28/19 09:02 Lymph # (Auto) 800 /uL (6984-9448) L 02/28/19 09:02 [place] # (Auto) 600 /uL (0-900) 02/28/19 09:02 Eos # (Auto) 100 /uL (0-450) 02/28/19 09:02 Baso # (Auto) 0 /uL (0-100) 02/28/19 09:02 Total Counted 50 07/07/18 11:12 Seg Neutrophils % 52.0 % (38-70) 07/07/18 11:12 Lymphocytes % (Manual) 22.0 % (25-45) L 07/07/18 11:12 Monocytes % (Manual) 2.0 % (2-11) 07/07/18 11:12 Eosinophils % (Manual) 22.0 % (2-4) H 07/07/18 11:12 Basophils % (Manual) 2.0 % (0-1) H 07/07/18 11:12 Neutrophils # (Manual) 1664 /uL (5806-1109) L 07/07/18 11:12 RBC Morphology Not Reportable 07/07/18 11:12 Anisocytosis 1+ H 07/07/18 11:12 Sodium 136 mmol/L (137-145) L 02/28/19 09:02 Potassium 4.8 mmol/L (3.4-5.1) 02/28/19 09:02 Chloride 103 mmol/L (98-107) 02/28/19 09:02 Carbon Dioxide 23 mmol/L (22-32) 02/28/19 09:02 BUN 34 mg/dL (7-17) H 02/28/19 09:02 Creatinine 2.30 mg/dL (0.52-1.04) H 02/28/19 09:02 Estimated GFR 20.4 mL/min (>60) L 02/28/19 09:02 BUN/Creatinine Ratio 14.8 (6-22) 02/28/19 09:02 Glucose 156 mg/dL (80-110) H 02/28/19 09:02 Calcium 8.8 mg/dL (8.4-10.2) 02/28/19 09:02 Total Bilirubin 0.5 mg/dL (0.2-1.3) 02/28/19 09:02 AST 20 IU/L (14-36) 02/28/19 09:02 ALT 24 IU/L (9-52) 02/28/19 09:02 Alkaline Phosphatase 88 U/L (38-126) 02/28/19 09:02 Lactate Dehydrogenase 457 U/L (313-618) 01/30/19 15:34 Serum Total Protein 5.9 g/dL (6.1-8.1) L 02/28/19 09:02 Total Protein 6.6 g/dL (6.3-8.2) 02/28/19 09:02 Albumin 3.4 g/dL (3.8-4.8) L 02/28/19 09:02 Globulin 2.8 g/dL (1.7-4.1) 02/28/19 09:02 Albumin/Globulin Ratio 1.4 (1.0-2.8) 02/28/19 09:02 Umzfp-9-Byjdtwpjg 0.3 g/dL (0.2-0.3) 02/28/19 09:02 Osbqq-0-Zolftmusc 0.9 g/dL (0.5-0.9) 02/28/19 09:02 Hvzf-1-Vvurdrhm 0.4 g/dL (0.4-0.6) 02/28/19 09:02 Hvoz-1-Quwckrbr 0.3 g/dL (0.2-0.5) 02/28/19 09:02 Pysi-2-Hzkgzliduaazw 5.28 mg/L (< 2.52) H 01/30/19 15:34 Gamma Globulins 0.6 g/dL (0.8-1.7) L 02/28/19 09:02 Abnorm Protein Band 1 Not Reportable 02/28/19 09:02 Abnorm Protein Band 2 Not Reportable 02/28/19 09:02 Abn Gamma Band 3 Serum Not Reportable 02/28/19 09:02 PEP Comment See note 02/28/19 09:02 IgG, Serum (MS) 680 mg/dL (694-1618) L 01/30/19 15:34 IgA 131 mg/dL (81-463) 01/30/19 15:59 IgM 39 mg/dL (48-271) L 01/30/19 15:34 DANDRE & SPEP Interp See note 01/17/19 10:10 Free [place] Light Chains 1153.2 mg/L (3.3-19.4) H 01/30/19 15:34 Free Lambda Light Chain 18.8 mg/L (5.7-26.3) 01/30/19 15:34 Free [place]/Lambda Ratio 61.24 (0.26-1.65) H 01/30/19 15:34 Blood Type A Positive 11/07/18 14:35 Antibody Screen Negative 11/07/18 14:35 - Imaging Additional studies: Procedures Biopsy of bone, other bones (04/23/14) Excision of lesion of other soft tissue (01/01/12) Inspection of Upper Intestinal Tract, Via Natural or Artificial Opening Endoscopic (01/30/16) Assessment and Plan (1) Multiple myeloma Problem details: Multiple myeloma previously treated with Revlimid and multiple courses of radiation. Multiple myeloma. She has recently started on Ninlaro and dexamethasone. Her kappa light chains have decreased from 1688 to 1153. Its difficult to tell how much is due to the medication and how much is due to improvement in her renal function. Nevertheless, she seems to be tolerating the medication adequately. She will continue with her current regimen for now. She will return to clinic in about 1 month for follow-up. If she is not having an adequate response, we may need to add either Cytoxan or perhaps an antibody to her regimen. She does have some worsening renal insufficiency with an increase in her creatinine. We will plan on giving her extra fluids today. Will also plan on checking a urinalysis to evaluate for an infection. She will return to clinic in about 1 month for follow-up. (2) Pulmonary embolus Assessment and Plan: Patient underwent lower extremity ultrasound study on 09/23/2018. No evidence of DVT found. The emboli source of the large bilateral saddle pulmonary embolism is not clear at this moment. Because of her renal insufficient she she was on Lovenox and is now on Coumadin. (3) History of renal cell carcinoma Problem details: She had right nephrectomy 09/2008 for renal cell carcinoma, high grade, papillary, with chronic renal insufficiency. Assessment and plan: Patient has a remote history of right renal cell carcinoma status post right radical nephrectomy.
--- NOTE | 2019-03-07 14:13 | P.PNONC_ITS ---
PN -Subjective Interval history: Diagnosis: Multiple myeloma Previous treatment: 1. 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 Progression to multiple myeloma started treatment with Revlimid and dexamethasone in March 2014. She later transitioned to Revlimid only at a dose of 15 mg/day. 3. Radiation therapy to the 6th rib, T11-L2, cervical spine and left ilium in May 2014 4. Radiation therapy to the right humerus finishing in October 2014 5. Radiation therapy to T7 and T12 in May 2015 6. Another course of radiation to the right humerus in June 2015 7. Another course of radiation to the spine from T9 through L1 in January 2016 8. 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 Radiation therapy to the right hip in October 2018. 10. Ninlaro and dexamethasone weekly beginning in January 2019 Interval history: The patient is an 78-year-old woman with a longstanding history of multiple myeloma. Since her last visit here, she has been feeling about the same. She has been working with physical therapy. They have been putting some tape on her back which has been helping with her pain. She has been using an occasional oxycodone. She denies any other new aches or pains. She seems to be tolerating her oral chemotherapy without too much difficulty. She denies any nausea or vomiting. She has not noticed any diarrhea. No worsening neuropathy. She denies any fevers chills or sweats. Her appetite has been low but stable. She tells me that she is drinking plenty of fluids. She believe she is making a normal amount of urine but has noticed some change in the color. She denies any shortness of breath or cough. No adenopathy. She denies any other changes in her health. Of note, she had right nephrectomy 09/2008 for renal cell carcinoma, high grade papillary, with chronic renal insufficiency. Home Medications and Allergies Home Medications Medication Instructions Recorded Confirmed Type multivitamin [Multiple Vitamins] 1 tab PO QDAY #0 05/12/17 02/07/19 History propranolol 160 mg PO QAM #0 01/14/18 02/07/19 History albuterol sulfate 1 neb INH QID #0 02/12/18 01/25/19 History clobetasol-emollient 0.05 pump TOPICAL BID #0 02/12/18 01/25/19 History guaifenesin 600 mg PO BID #0 02/12/18 01/25/19 History levothyroxine 150 mcg PO DAILY 03/30/18 01/25/19 History melatonin 1 mg PO BEDTIME PRN 03/30/18 02/07/19 History omeprazole 20 mg PO DAILY 03/30/18 02/07/19 History sertraline 100 mg PO DAILY 03/30/18 02/07/19 History acetaminophen 650 mg PO Q8H 01/25/19 01/25/19 History acyclovir 200 mg PO BID 01/25/19 01/25/19 History albuterol sulfate 3 ml INHALATION Q4H PRN 01/25/19 01/25/19 History benzonatate 100 mg PO TID PRN 01/25/19 01/25/19 History cyanocobalamin (vitamin B-12) 1,000 mcg PO DAILY 01/25/19 01/25/19 History diclofenac sodium 0.5 g TOPICAL BID 01/25/19 01/25/19 History insulin glargine 5 units SUBCUT DAILY 01/25/19 01/25/19 History propranolol 80 mg PO 1200,1500 01/25/19 02/07/19 History dexamethasone 20 mg PO [place]@0900 #10 tab 01/27/19 Rx enoxaparin [Lovenox] 90 mg SUBCUT BID #20 ml 01/27/19 Rx ixazomib 4 mg PO QWEEK #0 cap 01/27/19 01/25/19 Rx oxycodone-acetaminophen 1 tab PO Q4H PRN #20 tab MDD 01/27/19 02/07/19 Rx 4000mg acetaminophen warfarin [Coumadin] 3 mg PO 1700 02/07/19 02/07/19 History Allergies Allergy/AdvReac Type Severity Reaction Status Date / Time morphine Allergy Severe STROKE Verified 04/20/18 13:22 LIKE SYMPTOMS levofloxacin Allergy Intermediate HIVES Verified 04/20/18 13:22 adhesive [ADHESIVE] Allergy Mild BLISTERS Verified 04/20/18 13:22 celecoxib Allergy Mild RASH, Verified 04/20/18 13:22 SMALL BLISTERS, NAUSEA Penicillins Allergy Mild RASH Verified 04/20/18 13:22 phenazopyridine Allergy Mild VOMITING Verified 04/20/18 13:22 [From PYRIDIUM] Sulfa (Sulfonamide Allergy Mild BLISTERS Verified 04/20/18 13:22 Antibiotics) lactose [LACTOSE] Allergy Unknown Verified 04/20/18 13:22 Exam Vital signs: Vital Signs Temp Pulse Resp BP 03/07/19 13:32 97.7 F 100 H 20 120/69 Intake and Output 03/06/19 03/07/19 03/07/19 23:59 07:59 15:59 Other: Weight 87.6 kg Patient Weight 03/07/19 23:59 Weight 87.6 kg - Constitutional positive no acute distress, positive average body habitus Comments: She is in a wheelchair chronically ill-appearing but in no acute distress. - Routine HEENT Exam Head: Present: normocephalic, atraumatic Eye: Present: EOMI, PERRL. Absent: conjunctival icterus, scleral injection ENT: Present: mucous membranes moist, oropharynx clear - Routine Neck Exam Present: supple. Absent: lymphadenopathy, thyromegaly - Routine Respiratory Exam Present: Clear to auscultation bilaterally. Absent: rales, wheezes - Routine Cardiovascular Exam Present: RRR, S1, S2. Absent: murmur - Routine Abdominal Exam Present: soft, normoactive bowel sounds. Absent: tenderness, organomegaly, mass - Routine Extremities Exam Absent: cyanosis, clubbing - Routine Back/Spine Exam Back/Spine: Absent: paraspinal tenderness, vertebral tenderness - Routine Skin Exam Present: intact. Absent: petechiae, rash - Routine Neurological Exam Present: alert, oriented X3 Results - Labs Laboratory Last Values WBC 4.7 X10^3/uL (4.5-11.0) 02/28/19 09:02 RBC 3.21 X10^6/uL (4.0-5.2) L 02/28/19 09:02 Hgb 10.0 g/dL (12.0-16.0) L 02/28/19 09:02 Hct 30.7 % (36-46) L 02/28/19 09:02 MCV 95.7 fL (80-100) 02/28/19 09:02 MCH 31.2 PG (26-34) 02/28/19 09:02 MCHC 32.6 % (30-36) 02/28/19 09:02 RDW 16.1 % (11.6-14.8) H 02/28/19 09:02 Plt Count 170 X10^3/uL (150-400) 02/28/19 09:02 Neut % (Auto) 67.5 % (50-75) 02/28/19 09:02 Lymph % (Auto) 17.0 % (25-40) L 02/28/19 09:02 [place] % (Auto) 13.3 % (3-14) 02/28/19 09:02 Eos % (Auto) 1.5 % (2-4) L 02/28/19 09:02 Baso % (Auto) 0.7 % (0-2) 02/28/19 09:02 Neut # (Auto) 3200 /uL (5401-9462) 02/28/19 09:02 Lymph # (Auto) 800 /uL (5817-5519) L 02/28/19 09:02 [place] # (Auto) 600 /uL (0-900) 02/28/19 09:02 Eos # (Auto) 100 /uL (0-450) 02/28/19 09:02 Baso # (Auto) 0 /uL (0-100) 02/28/19 09:02 Total Counted 50 07/07/18 11:12 Seg Neutrophils % 52.0 % (38-70) 07/07/18 11:12 Lymphocytes % (Manual) 22.0 % (25-45) L 07/07/18 11:12 Monocytes % (Manual) 2.0 % (2-11) 07/07/18 11:12 Eosinophils % (Manual) 22.0 % (2-4) H 07/07/18 11:12 Basophils % (Manual) 2.0 % (0-1) H 07/07/18 11:12 Neutrophils # (Manual) 1664 /uL (7778-6882) L 07/07/18 11:12 RBC Morphology Not Reportable 07/07/18 11:12 Anisocytosis 1+ H 07/07/18 11:12 Sodium 136 mmol/L (137-145) L 02/28/19 09:02 Potassium 4.8 mmol/L (3.4-5.1) 02/28/19 09:02 Chloride 103 mmol/L (98-107) 02/28/19 09:02 Carbon Dioxide 23 mmol/L (22-32) 02/28/19 09:02 BUN 34 mg/dL (7-17) H 02/28/19 09:02 Creatinine 2.30 mg/dL (0.52-1.04) H 02/28/19 09:02 Estimated GFR 20.4 mL/min (>60) L 02/28/19 09:02 BUN/Creatinine Ratio 14.8 (6-22) 02/28/19 09:02 Glucose 156 mg/dL (80-110) H 02/28/19 09:02 Calcium 8.8 mg/dL (8.4-10.2) 02/28/19 09:02 Total Bilirubin 0.5 mg/dL (0.2-1.3) 02/28/19 09:02 AST 20 IU/L (14-36) 02/28/19 09:02 ALT 24 IU/L (9-52) 02/28/19 09:02 Alkaline Phosphatase 88 U/L (38-126) 02/28/19 09:02 Lactate Dehydrogenase 457 U/L (313-618) 01/30/19 15:34 Serum Total Protein 5.9 g/dL (6.1-8.1) L 02/28/19 09:02 Total Protein 6.6 g/dL (6.3-8.2) 02/28/19 09:02 Albumin 3.4 g/dL (3.8-4.8) L 02/28/19 09:02 Globulin 2.8 g/dL (1.7-4.1) 02/28/19 09:02 Albumin/Globulin Ratio 1.4 (1.0-2.8) 02/28/19 09:02 Cocbs-0-Ncjolabvu 0.3 g/dL (0.2-0.3) 02/28/19 09:02 Whtzr-4-Ukzakxjjs 0.9 g/dL (0.5-0.9) 02/28/19 09:02 Swow-4-Vhqayytn 0.4 g/dL (0.4-0.6) 02/28/19 09:02 Zmew-5-Ndtnlmty 0.3 g/dL (0.2-0.5) 02/28/19 09:02 Vjrf-1-Hikoblctmzprs 5.28 mg/L (< 2.52) H 01/30/19 15:34 Gamma Globulins 0.6 g/dL (0.8-1.7) L 02/28/19 09:02 Abnorm Protein Band 1 Not Reportable 02/28/19 09:02 Abnorm Protein Band 2 Not Reportable 02/28/19 09:02 Abn Gamma Band 3 Serum Not Reportable 02/28/19 09:02 PEP Comment See note 02/28/19 09:02 IgG, Serum (MS) 680 mg/dL (694-1618) L 01/30/19 15:34 IgA 131 mg/dL (81-463) 01/30/19 15:59 IgM 39 mg/dL (48-271) L 01/30/19 15:34 DANDRE & SPEP Interp See note 01/17/19 10:[address] Light Chains 1153.2 mg/L (3.3-19.4) H 01/30/19 15:34 Free Lambda Light Chain 18.8 mg/L (5.7-26.3) 01/30/19 15:[address]/Lambda Ratio 61.24 (0.26-1.65) H 01/30/19 15:34 Blood Type A Positive 11/07/18 14:35 Antibody Screen Negative 11/07/18 14:35 - Imaging Additional studies: Procedures Biopsy of bone, other bones (04/23/14) Excision of lesion of other soft tissue (01/01/12) Inspection of Upper Intestinal Tract, Via Natural or Artificial Opening Endoscopic (01/30/16) Assessment and Plan (1) Multiple myeloma Problem details: Multiple myeloma previously treated with Revlimid and multiple courses of radiation. Multiple myeloma. She has recently started on Ninlaro and dexamethasone. Her kappa light chains have decreased from 1688 to 1153. Its difficult to tell how much is due to the medication and how much is due to improvement in her renal function. Nevertheless, she seems to be tolerating the medication adequately. She will continue with her current regimen for now. She will return to clinic in about 1 month for follow-up. If she is not having an adequate response, we may need to add either Cytoxan or perhaps an antibody to her regimen. She does have some worsening renal insufficiency with an increase in her creatinine. We will plan on giving her extra fluids today. Will also plan on checking a urinalysis to evaluate for an infection. She will return to clinic in about 1 month for follow-up. (2) Pulmonary embolus Assessment and Plan: Patient underwent lower extremity ultrasound study on 09/23/2018. No evidence of DVT found. The emboli source of the large bilateral saddle pulmonary embolism is not clear at this moment. Because of her renal insufficient she she was on Lovenox and is now on Coumadin. (3) History of renal cell carcinoma Problem details: She had right nephrectomy 09/2008 for renal cell carcinoma, high grade, papillary, with chronic renal insufficiency. Assessment and plan: Patient has a remote history of right renal cell carcinoma status post right radical nephrectomy.
[2019-03-07] MEDS: SODIUM CHLORIDE 0.9% 1,000 ML 1000 ML IV (14:30)
--- NOTE | 2019-03-08 12:17 | PC.NURSE ---
This nurse spoke with REG Vaz at [facility] and communicated the verbal order from Dr. Rousseau for patient to receive Macrobid, 100 mg PO bid x 7 days. Also confirmed the dexamethasone and ixazomib as ordered under ambulatory orders.
[2019-04-04 10:30] VITALS: BP 129/70; PULSE 72; RESP 20; TEMP 36.6; O2SAT 96
--- NOTE | 2019-04-04 11:02 | ONC.PN ---
PN -Subjective Interval history: Diagnosis: Multiple myeloma Previous treatment: 1. 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 Progression to multiple myeloma started treatment with Revlimid and dexamethasone in March 2014. She later transitioned to Revlimid only at a dose of 15 mg/day. 3. Radiation therapy to the 6th rib, T11-L2, cervical spine and left ilium in May 2014 4. Radiation therapy to the right humerus finishing in October 2014 5. Radiation therapy to T7 and T12 in May 2015 6. Another course of radiation to the right humerus in June 2015 7. Another course of radiation to the spine from T9 through L1 in January 2016 8. 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 Radiation therapy to the right hip in October 2018. 10. Ninlaro and dexamethasone weekly beginning in January 2019 Interval history: The patient is an 78-year-old woman with a longstanding history of multiple myeloma. She returns today for follow-up. Since her last visit here, she has continued on her weekly oral chemotherapy. She has been tolerating it fairly well. She denies any nausea or vomiting. She has not had any worsening neuropathy. No diarrhea or constipation. No fevers chills or sweats. She denies any shortness of breath or cough. She has been bothered by some increasing pain in the hips bilaterally and also in the right shoulder area. She has been taking some Tylenol which seems to help the shoulder but not the hips. She has also been using some oxycodone which provides a little bit better relief although not very long lasting. She had been working with physical therapy but stop. She is hoping to be able to go home from her rehab facility soon. Of note, she had right nephrectomy 09/2008 for renal cell carcinoma, high grade papillary, with chronic renal insufficiency. Home Medications and Allergies Home Medications Medication Instructions Recorded Confirmed Type multivitamin [Multiple Vitamins] 1 tab PO QDAY #0 05/12/17 04/04/19 History propranolol 160 mg PO QAM #0 01/14/18 04/04/19 History albuterol sulfate 1 neb INH QID #0 02/12/18 04/04/19 History clobetasol-emollient 0.05 pump TOPICAL BID #0 02/12/18 04/04/19 History guaifenesin 600 mg PO BID #0 02/12/18 04/04/19 History levothyroxine 150 mcg PO DAILY 03/30/18 04/04/19 History melatonin 1 mg PO BEDTIME PRN 03/30/18 04/04/19 History omeprazole 20 mg PO DAILY 03/30/18 04/04/19 History sertraline 100 mg PO DAILY 03/30/18 04/04/19 History acetaminophen 650 mg PO Q8H 01/25/19 04/04/19 History acyclovir 200 mg PO BID 01/25/19 04/04/19 History albuterol sulfate 3 ml INHALATION Q4H PRN 01/25/19 04/04/19 History benzonatate 100 mg PO TID PRN 01/25/19 04/04/19 History cyanocobalamin (vitamin B-12) 1,000 mcg PO DAILY 01/25/19 04/04/19 History diclofenac sodium 0.5 g TOPICAL BID 01/25/19 04/04/19 History insulin glargine 7 units SUBCUT DAILY 01/25/19 04/04/19 History propranolol 80 mg PO 1200,1500 01/25/19 04/04/19 History dexamethasone 20 mg PO [place]@0900 #10 tab 01/27/19 04/04/19 Rx ixazomib 4 mg PO QWEEK #0 cap 01/27/19 04/04/19 Rx oxycodone-acetaminophen 1 tab PO Q4H PRN #20 tab MDD 01/27/19 04/04/19 Rx 4000mg acetaminophen warfarin [Coumadin] 3 mg PO 1700 02/07/19 04/04/19 History Allergies Allergy/AdvReac Type Severity Reaction Status Date / Time morphine Allergy Severe STROKE Verified 04/20/18 13:22 LIKE SYMPTOMS levofloxacin Allergy Intermediate HIVES Verified 04/20/18 13:22 adhesive [ADHESIVE] Allergy Mild BLISTERS Verified 04/20/18 13:22 celecoxib Allergy Mild RASH, Verified 04/20/18 13:22 SMALL BLISTERS, NAUSEA Penicillins Allergy Mild RASH Verified 04/20/18 13:22 phenazopyridine Allergy Mild VOMITING Verified 04/20/18 13:22 [From PYRIDIUM] Sulfa (Sulfonamide Allergy Mild BLISTERS Verified 04/20/18 13:22 Antibiotics) lactose [LACTOSE] Allergy Unknown Verified 04/20/18 13:22 Exam Vital signs: Vital Signs Temp Pulse Resp BP Pulse Ox 04/04/19 10:30 97.8 F 72 20 129/70 96 Intake and Output 04/03/19 04/04/19 04/04/19 23:59 07:59 15:59 Other: Weight 89.3 kg Patient Weight 04/04/19 23:59 Weight 89.3 kg - Constitutional positive no acute distress, positive obese - Routine HEENT Exam Head: Present: normocephalic, atraumatic Eye: Present: EOMI, PERRL. Absent: conjunctival icterus, scleral injection ENT: Present: mucous membranes moist, oropharynx clear - Routine Neck Exam Present: supple. Absent: lymphadenopathy, thyromegaly - Routine Respiratory Exam Present: Clear to auscultation bilaterally. Absent: rales, wheezes - Routine Cardiovascular Exam Present: RRR, S1, S2. Absent: murmur - Routine Abdominal Exam Present: soft, normoactive bowel sounds. Absent: tenderness, organomegaly, mass - Routine Skin Exam Present: intact. Absent: petechiae, rash - Routine Neurological Exam Present: alert, oriented X3 - Routine Psychiatric Exam Present: normal affect, normal thought process Results - Labs Laboratory Last Values WBC 4.7 X10^3/uL (4.5-11.0) 02/28/19 09:02 RBC 3.21 X10^6/uL (4.0-5.2) L 02/28/19 09:02 Hgb 10.0 g/dL (12.0-16.0) L 02/28/19 09:02 Hct 30.7 % (36-46) L 02/28/19 09:02 MCV 95.7 fL (80-100) 02/28/19 09:02 MCH 31.2 PG (26-34) 02/28/19 09:02 MCHC 32.6 % (30-36) 02/28/19 09:02 RDW 16.1 % (11.6-14.8) H 02/28/19 09:02 Plt Count 170 X10^3/uL (150-400) 02/28/19 09:02 Neut % (Auto) 67.5 % (50-75) 02/28/19 09:02 Lymph % (Auto) 17.0 % (25-40) L 02/28/19 09:02 [place] % (Auto) 13.3 % (3-14) 02/28/19 09:02 Eos % (Auto) 1.5 % (2-4) L 02/28/19 09:02 Baso % (Auto) 0.7 % (0-2) 02/28/19 09:02 Neut # (Auto) 3200 /uL (7593-6101) 02/28/19 09:02 Lymph # (Auto) 800 /uL (6842-2224) L 02/28/19 09:02 [place] # (Auto) 600 /uL (0-900) 02/28/19 09:02 Eos # (Auto) 100 /uL (0-450) 02/28/19 09:02 Baso # (Auto) 0 /uL (0-100) 02/28/19 09:02 Total Counted 50 07/07/18 11:12 Seg Neutrophils % 52.0 % (38-70) 07/07/18 11:12 Lymphocytes % (Manual) 22.0 % (25-45) L 07/07/18 11:12 Monocytes % (Manual) 2.0 % (2-11) 07/07/18 11:12 Eosinophils % (Manual) 22.0 % (2-4) H 07/07/18 11:12 Basophils % (Manual) 2.0 % (0-1) H 07/07/18 11:12 Neutrophils # (Manual) 1664 /uL (7550-0167) L 07/07/18 11:12 RBC Morphology Not Reportable 07/07/18 11:12 Anisocytosis 1+ H 07/07/18 11:12 Sodium 136 mmol/L (137-145) L 02/28/19 09:02 Potassium 4.8 mmol/L (3.4-5.1) 02/28/19 09:02 Chloride 103 mmol/L (98-107) 02/28/19 09:02 Carbon Dioxide 23 mmol/L (22-32) 02/28/19 09:02 BUN 34 mg/dL (7-17) H 02/28/19 09:02 Creatinine 2.30 mg/dL (0.52-1.04) H 02/28/19 09:02 Estimated GFR 20.4 mL/min (>60) L 02/28/19 09:02 BUN/Creatinine Ratio 14.8 (6-22) 02/28/19 09:02 Glucose 156 mg/dL (80-110) H 02/28/19 09:02 Calcium 8.8 mg/dL (8.4-10.2) 02/28/19 09:02 Total Bilirubin 0.5 mg/dL (0.2-1.3) 02/28/19 09:02 AST 20 IU/L (14-36) 02/28/19 09:02 ALT 24 IU/L (9-52) 02/28/19 09:02 Alkaline Phosphatase 88 U/L (38-126) 02/28/19 09:02 Lactate Dehydrogenase 457 U/L (313-618) 01/30/19 15:34 Serum Total Protein 5.9 g/dL (6.1-8.1) L 02/28/19 09:02 Total Protein 6.6 g/dL (6.3-8.2) 02/28/19 09:02 Albumin 3.4 g/dL (3.8-4.8) L 02/28/19 09:02 Globulin 2.8 g/dL (1.7-4.1) 02/28/19 09:02 Albumin/Globulin Ratio 1.4 (1.0-2.8) 02/28/19 09:02 Dzqro-6-Qmbhnqpbq 0.3 g/dL (0.2-0.3) 02/28/19 09:02 Rgwcg-4-Mzfgdkety 0.9 g/dL (0.5-0.9) 02/28/19 09:02 Gwwz-9-Knnmttkb 0.4 g/dL (0.4-0.6) 02/28/19 09:02 Civk-2-Ixvqnxpn 0.3 g/dL (0.2-0.5) 02/28/19 09:02 Xmfp-4-Voyfhigfjbjmr 5.28 mg/L (< 2.52) H 01/30/19 15:34 Gamma Globulins 0.6 g/dL (0.8-1.7) L 02/28/19 09:02 Abnorm Protein Band 1 Not Reportable 02/28/19 09:02 Abnorm Protein Band 2 Not Reportable 02/28/19 09:02 Abn Gamma Band 3 Serum Not Reportable 05/07/19 09:02 PEP Comment See note 02/28/19 09:02 Urine Color Cancelled 03/07/19 14:18 Urine Appearance Cancelled 03/07/19 14:18 Urine pH Cancelled 03/07/19 14:18 Ur Specific [place] Cancelled 03/07/19 14:18 Urine Protein Cancelled 03/07/19 14:18 Urine Glucose (UA) Cancelled 03/07/19 14:18 Urine Ketones Cancelled 03/07/19 14:18 Urine Occult Blood Cancelled 03/07/19 14:18 Urine Nitrate Cancelled 03/07/19 14:18 Urine Bilirubin Cancelled 03/07/19 14:18 Urine Urobilinogen Cancelled 03/07/19 14:18 Ur Leukocyte Esterase Cancelled 03/07/19 14:18 Urine RBC Cancelled 03/07/19 14:18 Urine WBC Cancelled 03/07/19 14:18 Ur Squamous Epith Cells Cancelled 03/07/19 14:18 Ur Transition Epith Cell Cancelled 03/07/19 14:18 Ur Renal Epithelial Cell Cancelled 03/07/19 14:18 Calcium Oxalate Crystal Cancelled 03/07/19 14:18 Uric Acid Crystals Cancelled 03/07/19 14:18 Triple Phos Crystals Cancelled 03/07/19 14:18 Other Crystals Cancelled 03/07/19 14:18 Amorphous Sediment Cancelled 03/07/19 14:18 Urine Bacteria Cancelled 03/07/19 14:18 Hyaline Casts Cancelled 03/07/19 14:18 Granular Casts Cancelled 03/07/19 14:18 RBC Casts Cancelled 03/07/19 14:18 WBC Casts Cancelled 03/07/19 14:18 Other Casts Cancelled 03/07/19 14:18 Urine Mucus Cancelled 03/07/19 14:18 Urine Trichomonas Cancelled 03/07/19 14:18 Urine Yeast Cancelled 03/07/19 14:18 Urine Sperm Cancelled 03/07/19 14:18 Ur Culture Indicated? Cancelled 03/07/19 14:18 Micro UA Comment Cancelled 03/07/19 14:18 IgG, Serum (MS) 680 mg/dL (694-1618) L 01/30/19 15:34 IgA 131 mg/dL (81-463) 01/30/19 15:59 IgM 39 mg/dL (48-271) L 01/30/19 15:34 DANDRE & SPEP Interp See note 01/17/19 10:10 Free [place] Light Chains 1153.2 mg/L (3.3-19.4) H 01/30/19 15:34 Free Lambda Light Chain 18.8 mg/L (5.7-26.3) 01/30/19 15:34 Free [place]/Lambda Ratio 61.24 (0.26-1.65) H 01/30/19 15:34 Blood Type A Positive 11/07/18 14:35 Antibody Screen Negative 11/07/18 14:35 - Imaging Additional studies: Procedures Biopsy of bone, other bones (04/23/14) Excision of lesion of other soft tissue (01/01/12) Inspection of Upper Intestinal Tract, Via Natural or Artificial Opening Endoscopic (01/30/16) Assessment and Plan (1) Multiple myeloma Problem details: Multiple myeloma previously treated with Revlimid and multiple courses of radiation. Multiple myeloma. She has recently started on Ninlaro and dexamethasone. Her kappa light chains had decreased from 1688 to 1153. Her most current level is pending. She seems to be tolerating the treatment without any difficulty. It is somewhat concerning that she is having some increasing pain. Her last imaging involved PET-CT. I think that a prior be the most convenient way to follow her. I will get that scheduled sometime in the next couple of weeks to see if there has been any evidence of progression. If there has, she may need additional therapy or perhaps additional radiation. Her anemia and renal insufficiency seem to be stable. She will return to clinic in about 2-3 weeks for follow-up. (2) Pulmonary embolus Assessment and Plan: Patient underwent lower extremity ultrasound study on 09/23/2018. No evidence of DVT found. The emboli source of the large bilateral saddle pulmonary embolism is not clear at this moment. Because of her renal insufficient she she was on Lovenox and is now on Coumadin. (3) History of renal cell carcinoma Problem details: She had right nephrectomy 09/2008 for renal cell carcinoma, high grade, papillary, with chronic renal insufficiency. Assessment and plan: Patient has a remote history of right renal cell carcinoma status post right radical nephrectomy.
--- NOTE | 2019-04-04 11:07 | P.PNONC_ITS ---
PN -Subjective Interval history: Diagnosis: Multiple myeloma Previous treatment: 1. 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 Progression to multiple myeloma started treatment with Revlimid and dexamethasone in March 2014. She later transitioned to Revlimid only at a dose of 15 mg/day. 3. Radiation therapy to the 6th rib, T11-L2, cervical spine and left ilium in May 2014 4. Radiation therapy to the right humerus finishing in October 2014 5. Radiation therapy to T7 and T12 in May 2015 6. Another course of radiation to the right humerus in June 2015 7. Another course of radiation to the spine from T9 through L1 in January 2016 8. 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 Radiation therapy to the right hip in October 2018. 10. Ninlaro and dexamethasone weekly beginning in January 2019 Interval history: The patient is an 78-year-old woman with a longstanding history of multiple myeloma. She returns today for follow-up. Since her last visit here, she has continued on her weekly oral chemotherapy. She has been tolerating it fairly well. She denies any nausea or vomiting. She has not had any worsening neuropathy. No diarrhea or constipation. No fevers chills or sweats. She denies any shortness of breath or cough. She has been bothered by some increasing pain in the hips bilaterally and also in the right shoulder area. She has been taking some Tylenol which seems to help the shoulder but not the hips. She has also been using some oxycodone which provides a little bit better relief although not very long lasting. She had been working with physical therapy but stop. She is hoping to be able to go home from her rehab facility soon. Of note, she had right nephrectomy 09/2008 for renal cell carcinoma, high grade papillary, with chronic renal insufficiency. Home Medications and Allergies Home Medications Medication Instructions Recorded Confirmed Type multivitamin [Multiple Vitamins] 1 tab PO QDAY #0 05/12/17 04/04/19 History propranolol 160 mg PO QAM #0 01/14/18 04/04/19 History albuterol sulfate 1 neb INH QID #0 02/12/18 04/04/19 History clobetasol-emollient 0.05 pump TOPICAL BID #0 02/12/18 04/04/19 History guaifenesin 600 mg PO BID #0 02/12/18 04/04/19 History levothyroxine 150 mcg PO DAILY 03/30/18 04/04/19 History melatonin 1 mg PO BEDTIME PRN 03/30/18 04/04/19 History omeprazole 20 mg PO DAILY 03/30/18 04/04/19 History sertraline 100 mg PO DAILY 03/30/18 04/04/19 History acetaminophen 650 mg PO Q8H 01/25/19 04/04/19 History acyclovir 200 mg PO BID 01/25/19 04/04/19 History albuterol sulfate 3 ml INHALATION Q4H PRN 01/25/19 04/04/19 History benzonatate 100 mg PO TID PRN 01/25/19 04/04/19 History cyanocobalamin (vitamin B-12) 1,000 mcg PO DAILY 01/25/19 04/04/19 History diclofenac sodium 0.5 g TOPICAL BID 01/25/19 04/04/19 History insulin glargine 7 units SUBCUT DAILY 01/25/19 04/04/19 History propranolol 80 mg PO 1200,1500 01/25/19 04/04/19 History dexamethasone 20 mg PO [place]@0900 #10 tab 01/27/19 04/04/19 Rx ixazomib 4 mg PO QWEEK #0 cap 01/27/19 04/04/19 Rx oxycodone-acetaminophen 1 tab PO Q4H PRN #20 tab MDD 01/27/19 04/04/19 Rx 4000mg acetaminophen warfarin [Coumadin] 3 mg PO 1700 02/07/19 04/04/19 History Allergies Allergy/AdvReac Type Severity Reaction Status Date / Time morphine Allergy Severe STROKE Verified 04/20/18 13:22 LIKE SYMPTOMS levofloxacin Allergy Intermediate HIVES Verified 04/20/18 13:22 adhesive [ADHESIVE] Allergy Mild BLISTERS Verified 04/20/18 13:22 celecoxib Allergy Mild RASH, Verified 04/20/18 13:22 SMALL BLISTERS, NAUSEA Penicillins Allergy Mild RASH Verified 04/20/18 13:22 phenazopyridine Allergy Mild VOMITING Verified 04/20/18 13:22 [From PYRIDIUM] Sulfa (Sulfonamide Allergy Mild BLISTERS Verified 04/20/18 13:22 Antibiotics) lactose [LACTOSE] Allergy Unknown Verified 04/20/18 13:22 Exam Vital signs: Vital Signs Temp Pulse Resp BP Pulse Ox 04/04/19 10:30 97.8 F 72 20 129/70 96 Intake and Output 04/03/19 04/04/19 04/04/19 23:59 07:59 15:59 Other: Weight 89.3 kg Patient Weight 04/04/19 23:59 Weight 89.3 kg - Constitutional positive no acute distress, positive obese - Routine HEENT Exam Head: Present: normocephalic, atraumatic Eye: Present: EOMI, PERRL. Absent: conjunctival icterus, scleral injection ENT: Present: mucous membranes moist, oropharynx clear - Routine Neck Exam Present: supple. Absent: lymphadenopathy, thyromegaly - Routine Respiratory Exam Present: Clear to auscultation bilaterally. Absent: rales, wheezes - Routine Cardiovascular Exam Present: RRR, S1, S2. Absent: murmur - Routine Abdominal Exam Present: soft, normoactive bowel sounds. Absent: tenderness, organomegaly, mass - Routine Skin Exam Present: intact. Absent: petechiae, rash - Routine Neurological Exam Present: alert, oriented X3 - Routine Psychiatric Exam Present: normal affect, normal thought process Results - Labs Laboratory Last Values WBC 4.7 X10^3/uL (4.5-11.0) 02/28/19 09:02 RBC 3.21 X10^6/uL (4.0-5.2) L 02/28/19 09:02 Hgb 10.0 g/dL (12.0-16.0) L 02/28/19 09:02 Hct 30.7 % (36-46) L 02/28/19 09:02 MCV 95.7 fL (80-100) 02/28/19 09:02 MCH 31.2 PG (26-34) 02/28/19 09:02 MCHC 32.6 % (30-36) 02/28/19 09:02 RDW 16.1 % (11.6-14.8) H 02/28/19 09:02 Plt Count 170 X10^3/uL (150-400) 02/28/19 09:02 Neut % (Auto) 67.5 % (50-75) 02/28/19 09:02 Lymph % (Auto) 17.0 % (25-40) L 02/28/19 09:02 [place] % (Auto) 13.3 % (3-14) 02/28/19 09:02 Eos % (Auto) 1.5 % (2-4) L 02/28/19 09:02 Baso % (Auto) 0.7 % (0-2) 02/28/19 09:02 Neut # (Auto) 3200 /uL (3161-4714) 02/28/19 09:02 Lymph # (Auto) 800 /uL (2358-5712) L 02/28/19 09:02 [place] # (Auto) 600 /uL (0-900) 02/28/19 09:02 Eos # (Auto) 100 /uL (0-450) 02/28/19 09:02 Baso # (Auto) 0 /uL (0-100) 02/28/19 09:02 Total Counted 50 07/07/18 11:12 Seg Neutrophils % 52.0 % (38-70) 07/07/18 11:12 Lymphocytes % (Manual) 22.0 % (25-45) L 07/07/18 11:12 Monocytes % (Manual) 2.0 % (2-11) 07/07/18 11:12 Eosinophils % (Manual) 22.0 % (2-4) H 07/07/18 11:12 Basophils % (Manual) 2.0 % (0-1) H 07/07/18 11:12 Neutrophils # (Manual) 1664 /uL (9552-8851) L 07/07/18 11:12 RBC Morphology Not Reportable 07/07/18 11:12 Anisocytosis 1+ H 07/07/18 11:12 Sodium 136 mmol/L (137-145) L 02/28/19 09:02 Potassium 4.8 mmol/L (3.4-5.1) 02/28/19 09:02 Chloride 103 mmol/L (98-107) 02/28/19 09:02 Carbon Dioxide 23 mmol/L (22-32) 02/28/19 09:02 BUN 34 mg/dL (7-17) H 02/28/19 09:02 Creatinine 2.30 mg/dL (0.52-1.04) H 02/28/19 09:02 Estimated GFR 20.4 mL/min (>60) L 02/28/19 09:02 BUN/Creatinine Ratio 14.8 (6-22) 02/28/19 09:02 Glucose 156 mg/dL (80-110) H 02/28/19 09:02 Calcium 8.8 mg/dL (8.4-10.2) 02/28/19 09:02 Total Bilirubin 0.5 mg/dL (0.2-1.3) 02/28/19 09:02 AST 20 IU/L (14-36) 02/28/19 09:02 ALT 24 IU/L (9-52) 02/28/19 09:02 Alkaline Phosphatase 88 U/L (38-126) 02/28/19 09:02 Lactate Dehydrogenase 457 U/L (313-618) 01/30/19 15:34 Serum Total Protein 5.9 g/dL (6.1-8.1) L 02/28/19 09:02 Total Protein 6.6 g/dL (6.3-8.2) 02/28/19 09:02 Albumin 3.4 g/dL (3.8-4.8) L 02/28/19 09:02 Globulin 2.8 g/dL (1.7-4.1) 02/28/19 09:02 Albumin/Globulin Ratio 1.4 (1.0-2.8) 02/28/19 09:02 Kxkkf-8-Ydssontbn 0.3 g/dL (0.2-0.3) 02/28/19 09:02 Tvmlc-5-Ynsqtonon 0.9 g/dL (0.5-0.9) 02/28/19 09:02 Raze-8-Wtfjbcgt 0.4 g/dL (0.4-0.6) 02/28/19 09:02 Rgka-1-Nmbqiqly 0.3 g/dL (0.2-0.5) 02/28/19 09:02 Bebi-0-Zrfrydpcxegef 5.28 mg/L (< 2.52) H 01/30/19 15:34 Gamma Globulins 0.6 g/dL (0.8-1.7) L 02/28/19 09:02 Abnorm Protein Band 1 Not Reportable 02/28/19 09:02 Abnorm Protein Band 2 Not Reportable 02/28/19 09:02 Abn Gamma Band 3 Serum Not Reportable 05/07/19 09:02 PEP Comment See note 02/28/19 09:02 Urine Color Cancelled 03/07/19 14:18 Urine Appearance Cancelled 03/07/19 14:18 Urine pH Cancelled 03/07/19 14:18 Ur Specific [place] Cancelled 03/07/19 14:18 Urine Protein Cancelled 03/07/19 14:18 Urine Glucose (UA) Cancelled 03/07/19 14:18 Urine Ketones Cancelled 03/07/19 14:18 Urine Occult Blood Cancelled 03/07/19 14:18 Urine Nitrate Cancelled 03/07/19 14:18 Urine Bilirubin Cancelled 03/07/19 14:18 Urine Urobilinogen Cancelled 03/07/19 14:18 Ur Leukocyte Esterase Cancelled 03/07/19 14:18 Urine RBC Cancelled 03/07/19 14:18 Urine WBC Cancelled 03/07/19 14:18 Ur Squamous Epith Cells Cancelled 03/07/19 14:18 Ur Transition Epith Cell Cancelled 03/07/19 14:18 Ur Renal Epithelial Cell Cancelled 03/07/19 14:18 Calcium Oxalate Crystal Cancelled 03/07/19 14:18 Uric Acid Crystals Cancelled 03/07/19 14:18 Triple Phos Crystals Cancelled 03/07/19 14:18 Other Crystals Cancelled 03/07/19 14:18 Amorphous Sediment Cancelled 03/07/19 14:18 Urine Bacteria Cancelled 03/07/19 14:18 Hyaline Casts Cancelled 03/07/19 14:18 Granular Casts Cancelled 03/07/19 14:18 RBC Casts Cancelled 03/07/19 14:18 WBC Casts Cancelled 03/07/19 14:18 Other Casts Cancelled 03/07/19 14:18 Urine Mucus Cancelled 03/07/19 14:18 Urine Trichomonas Cancelled 03/07/19 14:18 Urine Yeast Cancelled 03/07/19 14:18 Urine Sperm Cancelled 03/07/19 14:18 Ur Culture Indicated? Cancelled 03/07/19 14:18 Micro UA Comment Cancelled 03/07/19 14:18 IgG, Serum (MS) 680 mg/dL (694-1618) L 01/30/19 15:34 IgA 131 mg/dL (81-463) 01/30/19 15:59 IgM 39 mg/dL (48-271) L 01/30/19 15:34 DANDRE & SPEP Interp See note 01/17/19 10:10 Free [place] Light Chains 1153.2 mg/L (3.3-19.4) H 01/30/19 15:34 Free [place] Chain 18.8 mg/L (5.7-26.3) 01/30/19 15:34 Free [place]/Lambda Ratio 61.24 (0.26-1.65) H 01/30/19 15:34 Blood Type A Positive 11/07/18 14:35 Antibody Screen Negative 11/07/18 14:35 - Imaging Additional studies: Procedures Biopsy of bone, other bones (04/23/14) Excision of lesion of other soft tissue (01/01/12) Inspection of Upper Intestinal Tract, Via Natural or Artificial Opening Endoscopic (01/30/16) Assessment and Plan (1) Multiple myeloma Problem details: Multiple myeloma previously treated with Revlimid and multiple courses of radia tion. Multiple myeloma. She has recently started on Ninlaro and dexamethasone. Her kappa light chains had decreased from 1688 to 1153. Her most current level is pending. She seems to be tolerating the treatment without any difficulty. It is somewhat concerning that she is having some increasing pain. Her last imaging involved PET-CT. I think that a prior be the most convenient way to fol low her. I will get that scheduled sometime in the next couple of weeks to see if there has been any evidence of progression. If there has, she may need additional therapy or perhaps additional radiation. Her anemia and renal insufficiency seem to be stable. She will return to clinic in about 2-3 weeks for follow-up. (2) Pulmonary embolus Assessment and Plan: Patient underwent lower extremity ultrasound study on 09/23/2018. No evidence of DVT found. The emboli source of the large bilateral saddle pulmonary embolism is not clear at this moment. Because of her renal insufficient she she was on Lovenox and is now on Coumadin. (3) History of renal cell carcinoma Problem details: She had right nephrectomy 09/2008 for renal cell carcinoma, high grade, papillary, with chronic renal insufficiency. Assessment and plan: Patient has a remote history of right renal cell carcinoma status post right radical nephrectomy.
--- NOTE | 2019-05-09 12:58 | ONC.SCHED ---
Lorraine will be seeing Dr. Rousseau in [place] on 05/19
--- NOTE | 2019-05-09 15:50 | PC.NURSE ---
Received voicemail from pt requesting call back from nurse. This publications writer called pt back twice, no answer. Unable to leave voicemail on pt's phone because voicemail is full.
--- NOTE | 2019-05-17 10:27 | PC.NURSE ---
Addendum entered by Marisol De Anda R.N. 05/18/19 13:20: FYI sent to Dr. Rousseau which he acknowledged having read. Original Note: on 05/15 nurse of [facility] where patient now resides called wanting to know if patient should still be getting the dexamethasone once a week even though they do not have the Ninlaro. In this communication it was reported that according to patient she has not actually received the Ninlaro for awhile as it was not given when she was at [facility]. Patient told the [facility] nurse that they lost it. This nurse confirmed for the [facility] nurses that the dexamethasone is only ordered to be given on the same day as the Ninlaro. Since she has an appointment with Dr. Rousseau on 05/19 in [facility], the continued administration of Ninlaro and dexamethasone can be clarified at that time.
--- NOTE | 2019-08-30 14:31 | ONC.SCHED ---
Patient requested Daughter Gracie to be removed from contact list
[2019-08-30 14:42] VITALS: BP 145/63; PULSE 73; RESP 18; TEMP 36.9; O2SAT 97
--- NOTE | 2019-08-30 16:31 | ONC.PN ---
PN -Subjective Interval history: Diagnosis: Multiple myeloma Previous treatment: 1. 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 Progression to multiple myeloma started treatment with Revlimid and dexamethasone in March 2014. She later transitioned to Revlimid only at a dose of 15 mg/day. 3. Radiation therapy to the 6th rib, T11-L2, cervical spine and left ilium in May 2014 4. Radiation therapy to the right humerus finishing in October 2014 5. Radiation therapy to T7 and T12 in May 2015 6. Another course of radiation to the right humerus in June 2015 7. Another course of radiation to the spine from T9 through L1 in January 2016 8. 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 Radiation therapy to the right hip in October 2018. 10. [place] and dexamethasone weekly beginning in January 2019 until April 2019. 11. Weekly Velcade and dexamethasone in May and June of 2019. 12. Radiation therapy to the left hip and pelvic region in June 2019 Interval history: The patient is an 79-year-old woman with a longstanding history of multiple myeloma. She returns today for follow-up. Since her last visit in June at [facility], she had started radiation therapy to the hip and pelvis for increasing pain. Unfortunately, she developed fracture and was hospitalized. She was not able to complete her radiation. Over the last 3 weeks, she has been staying at the rehab facility [facility]. She is working with physical therapy and walking with a walker. She tells me that she will be returning to her home on Wednesday with a caregiver. She notes ongoing pain in the hip pelvic area and right shoulder area. She had been using a lidocaine patch but had tingly or paresthesias sensation in the skin and took it off. There was no rash. She has been using a topical anti-inflammatory which seems to be helping. She is not having any nausea or vomiting. Her appetite has been fair. She has been bothered by a broken tooth in her jaw. She is planning to see a dentist but has not done it yet. She tells me that she did have a recent urinary tract infection and was treated with course of Macrobid. That apparently cause some GI upset. She also has taken a course of Keflex which seemed to help. She denies any other changes in her health. Of note, she had right nephrectomy 09/2008 for renal cell carcinoma, high grade papillary, with chronic renal insufficiency. - Patient Self-Reported Symptoms SR Constitution: Night Sweats SR ears, nose, mouth, throat issues: Difficulty swallowing SR Musculoskeletal issues: Bone pain SR Hematologic issues: Swollen lymph nodes Home Medications and Allergies Home Medications Medication Instructions Recorded Confirmed Type multivitamin [Multiple Vitamins] 1 tab PO QDAY #0 05/12/17 08/30/19 History propranolol 80 mg PO QAM #0 01/14/18 08/30/19 History sertraline 100 mg PO DAILY 03/30/18 08/30/19 History acetaminophen 650 mg PO Q8H 01/25/19 08/30/19 History cyanocobalamin (vitamin B-12) 1,000 mcg PO DAILY 01/25/19 08/30/19 History oxycodone-acetaminophen 1 tab PO Q4H PRN #20 tab MDD 01/27/19 08/30/19 Rx 4000mg acetaminophen Kerasal 1 applic TOPICAL DIRECTED 06/29/19 08/30/19 History dexamethasone 20 mg PO QWEEK 06/29/19 08/30/19 History diclofenac sodium 0 g TOPICAL BID 06/29/19 08/30/19 History levothyroxine [Synthroid] 150 mcg PO DAILY 06/29/19 08/30/19 History ondansetron 4 mg PO TID PRN 06/29/19 08/30/19 History tizanidine 2 mg PO Q6H PRN 06/29/19 08/30/19 History warfarin 3 mg PO DAILY 06/29/19 08/30/19 History Allergies Allergy/AdvReac Type Severity Reaction Status Date / Time morphine Allergy Severe STROKE Verified 06/29/19 13:07 LIKE SYMPTOMS levofloxacin Allergy Intermediate HIVES Verified 06/29/19 13:07 adhesive [ADHESIVE] Allergy Mild BLISTERS Verified 06/29/19 13:07 celecoxib Allergy Mild RASH, Verified 06/29/19 13:07 SMALL BLISTERS, NAUSEA Penicillins Allergy Mild RASH Verified 06/29/19 13:07 phenazopyridine Allergy Mild VOMITING Verified 06/29/19 13:07 [From PYRIDIUM] Sulfa (Sulfonamide Allergy Mild BLISTERS Verified 06/29/19 13:07 Antibiotics) lactose [LACTOSE] Allergy Unknown Verified 06/29/19 13:07 Exam Vital signs: Vital Signs Temp Pulse Resp BP Pulse Ox 08/30/19 14:42 98.4 F 73 18 145/63 H 97 Intake and Output 08/30/19 08/30/19 08/30/19 07:59 15:59 23:59 Other: Weight 90.1 kg Patient Weight 08/30/19 23:59 Weight 90.1 kg - Constitutional positive no acute distress, positive obese - Routine HEENT Exam Head: Present: normocephalic, atraumatic Eye: Present: EOMI, PERRL. Absent: conjunctival icterus, scleral injection ENT: Present: mucous membranes moist, oropharynx clear - Routine Neck Exam Present: supple. Absent: lymphadenopathy, thyromegaly - Routine Respiratory Exam Present: Clear to auscultation bilaterally. Absent: rales, wheezes - Routine Cardiovascular Exam Present: RRR, S1, S2. Absent: murmur - Routine Abdominal Exam Present: soft, normoactive bowel sounds. Absent: tenderness, organomegaly, mass - Routine Extremities Exam Absent: cyanosis, clubbing, edema - Routine Skin Exam Present: intact. Absent: petechiae, rash - Routine Neurological Exam Present: alert, oriented X3 - Routine Psychiatric Exam Present: normal affect, normal thought process Results - Labs Laboratory Last Values WBC Cancelled 03/07/19 14:18 RBC Cancelled 03/07/19 14:18 Hgb Cancelled 03/07/19 14:18 Hct Cancelled 03/07/19 14:18 MCV Cancelled 03/07/19 14:18 MCH Cancelled 03/07/19 14:18 MCHC Cancelled 03/07/19 14:18 RDW Cancelled 03/07/19 14:18 Plt Count Cancelled 03/07/19 14:18 Neut % (Auto) Cancelled 03/07/19 14:18 Lymph % (Auto) Cancelled 03/07/19 14:18 [place] % (Auto) Cancelled 03/07/19 14:18 Eos % (Auto) Cancelled 03/07/19 14:18 Baso % (Auto) Cancelled 03/07/19 14:18 Neut # (Auto) Cancelled 03/07/19 14:18 Lymph # (Auto) Cancelled 03/07/19 14:18 [place] # (Auto) Cancelled 03/07/19 14:18 Eos # (Auto) Cancelled 03/07/19 14:18 Baso # (Auto) Cancelled 03/07/19 14:18 Total Counted 50 07/07/18 11:12 Seg Neutrophils % 52.0 % (38-70) 07/07/18 11:12 Lymphocytes % (Manual) 22.0 % (25-45) L 07/07/18 11:12 Monocytes % (Manual) 2.0 % (2-11) 07/07/18 11:12 Eosinophils % (Manual) 22.0 % (2-4) H 07/07/18 11:12 Basophils % (Manual) 2.0 % (0-1) H 07/07/18 11:12 Neutrophils # (Manual) 1664 /uL (7542-8377) L 07/07/18 11:12 RBC Morphology Not Reportable 07/07/18 11:12 Anisocytosis 1+ H 07/07/18 11:12 Sodium Cancelled 03/07/19 14:18 Potassium Cancelled 03/07/19 14:18 Chloride Cancelled 03/07/19 14:18 Carbon Dioxide Cancelled 03/07/19 14:18 BUN Cancelled 03/07/19 14:18 Creatinine Cancelled 03/07/19 14:18 Estimated GFR Cancelled 03/07/19 14:18 BUN/Creatinine Ratio Cancelled 03/07/19 14:18 Glucose Cancelled 03/07/19 14:18 Calcium Cancelled 03/07/19 14:18 Total Bilirubin Cancelled 03/07/19 14:18 AST Cancelled 03/07/19 14:18 ALT Cancelled 03/07/19 14:18 Alkaline Phosphatase Cancelled 03/07/19 14:18 Lactate Dehydrogenase 457 U/L (313-618) 01/30/19 15:34 Serum Total Protein Cancelled 03/07/19 14:18 Total Protein Cancelled 03/07/19 14:18 Albumin Cancelled 03/07/19 14:18 Albumin Cancelled 03/07/19 14:18 Globulin Cancelled 03/07/19 14:18 Albumin/Globulin Ratio Cancelled 03/07/19 14:18 [id number]-[id number] Cancelled 03/07/19 14:18 Nposq-0-Matbefogy Cancelled 03/07/19 14:18 Bekv-0-Ripsbigv Cancelled 03/07/19 14:18 Rrdu-8-Mkwgjrjm Cancelled 03/07/19 14:18 Plsd-2-Evpohdprqakdi 5.28 mg/L (< 2.52) H 01/30/19 15:34 Gamma Globulins Cancelled 03/07/19 14:18 Abnorm Protein Band 1 Cancelled 03/07/19 14:18 Abnorm Protein Band 2 Cancelled 03/07/19 14:18 Abn Gamma Band 3 Serum Cancelled 03/07/19 14:18 PEP Comment Cancelled 03/07/19 14:18 Urine Color Cancelled 03/07/19 14:18 Urine Appearance Cancelled 03/07/19 14:18 Urine pH Cancelled 03/07/19 14:18 Ur Specific [place] Cancelled 03/07/19 14:18 Urine Protein Cancelled 03/07/19 14:18 Urine Glucose (UA) Cancelled 03/07/19 14:18 Urine Ketones Cancelled 03/07/19 14:18 Urine Occult Blood Cancelled 03/07/19 14:18 Urine Nitrate Cancelled 03/07/19 14:18 Urine Bilirubin Cancelled 03/07/19 14:18 Urine Urobilinogen Cancelled 03/07/19 14:18 Ur Leukocyte Esterase Cancelled 03/07/19 14:18 Urine RBC Cancelled 03/07/19 14:18 Urine WBC Cancelled 03/07/19 14:18 Ur Squamous Epith Cells Cancelled 03/07/19 14:18 Ur Transition Epith Cell Cancelled 03/07/19 14:18 Ur Renal Epithelial Cell Cancelled 03/07/19 14:18 Calcium Oxalate Crystal Cancelled 03/07/19 14:18 Uric Acid Crystals Cancelled 03/07/19 14:18 Triple Phos Crystals Cancelled 03/07/19 14:18 Other Crystals Cancelled 03/07/19 14:18 Amorphous Sediment Cancelled 03/07/19 14:18 Urine Bacteria Cancelled 03/07/19 14:18 Hyaline Casts Cancelled 03/07/19 14:18 Granular Casts Cancelled 03/07/19 14:18 RBC Casts Cancelled 03/07/19 14:18 WBC Casts Cancelled 03/07/19 14:18 Other Casts Cancelled 03/07/19 14:18 Urine Mucus Cancelled 03/07/19 14:18 Urine Trichomonas Cancelled 03/07/19 14:18 Urine Yeast Cancelled 03/07/19 14:18 Urine Sperm Cancelled 03/07/19 14:18 Ur Culture Indicated? Cancelled 03/07/19 14:18 Micro UA Comment Cancelled 03/07/19 14:18 IgG, Serum (MS) 680 mg/dL (694-1618) L 01/30/19 15:34 IgA 131 mg/dL (81-463) 01/30/19 15:59 IgM 39 mg/dL (48-271) L 01/30/19 15:34 DANDRE & SPEP Interp Cancelled 03/07/19 14:18 Free [place] Light Chains Cancelled 03/07/19 14:18 Free Lambda Light Chain Cancelled 03/07/19 14:18 Free [place]/Lambda Ratio Cancelled 03/07/19 14:18 Blood Type A Positive 11/07/18 14:35 Antibody Screen Negative 11/07/18 14:35 - Imaging Additional studies: Procedures Biopsy of bone, other bones (04/23/14) Excision of lesion of other soft tissue (01/01/12) Inspection of Upper Intestinal Tract, Via Natural or Artificial Opening Endoscopic (01/30/16) Assessment and Plan (1) Multiple myeloma Problem details: Multiple myeloma previously treated with Revlimid and multiple courses of radiation. Multiple myeloma. She was treated with dexamethasone and Velcade weekly at schedule it for several weeks. It seems like her serum free light chains were declining. Unfortunately her treatment stopped after her radiation therapy and fracture. I think that her myeloma is likely to be progressing. I have recommended that we continue with systemic therapy an attempt to control her disease. I think that she would benefit from the addition of an antibody such as daratumumab. Allergic reactions reviewed with the patient. I did point out that it would require more frequent visits but I think it would be helpful in terms of controlling her disease. She is willing to proceed. She does have a broken tooth. She should follow up with a dentist but should definitely warn them that she has been on Zometa in the past. She should resume that after her dental problems have resolved in her jaws healed. 40 minutes was spent with the patient the majority in counseling. (2) Pulmonary embolus Assessment and Plan: She will continue with indefinite anticoagulation with Coumadin. (3) History of renal cell carcinoma Problem details: She had right nephrectomy 09/2008 for renal cell carcinoma, high grade, papillary, with chronic renal insufficiency. Assessment and plan: Patient has a remote history of right renal cell carcinoma status post right radical nephrectomy.
--- NOTE | 2019-09-11 15:27 | ONC.SCHED ---
Left ms. for usp manager country to let her know we have patient on our schedule for a f/u 09/20/19.
--- NOTE | 2019-09-11 15:28 | PC.NURSE ---
RIGHT HIP FRACTURE: Patient called to report a new fracture and that she is now in [facility] for another 4 to 6 weeks. She requests that Dr. Rousseau view the CT which was done while she was here in ER and r. hip fracture was determined. She also reported that she has decided against infusion tho would like to continue with Velcade. Sanna from scheduling will call her to verify that she should still come for the F/U visit on 09/20 to discuss these things with Dr. Rousseau.
--- NOTE | 2019-09-20 08:44 | ONC.MSW ---
Description: Appt. Coordination Activity: Called [facility] [place] to inform them that pt has an appt today with Dr. Rousseau, and needs to be in clinic by 3:00pm-they were unaware. DNS will call ROLLER SKATE REPAIRER back to discuss.
--- NOTE | 2019-09-20 10:22 | ONC.MSW ---
Description: T/C re: pt appt. Activity: FCC called back and state that pt thought she had cancelled her appt. today, and that her understanding was that she was supposed to f/u in 6-weeks. [employer]OMOTIVE went ahead and notified scheduling to cancel the appt., and to f/u with pt in about 3-weeks to schedule her f/u. She will most likely be d/c'd from rehab in 2-weeks.
== END ==
PROVIDERS: Internal Medicine Hematology & Oncology; Nurse Practitioner Gerontology; Family Provider Internal Medicine; PCP Internal Medicine
DX: C90.00 Multiple myeloma not having achieved remission (principal); I26.99 Other pulmonary embolism without acute cor pulmonale; N18.9 Chronic kidney disease, unspecified; Z85.528 Personal history of other malignant neoplasm of kidney; Z90.5 Acquired absence of kidney; Z79.01 Long term (current) use of anticoagulants
CPT/HCPCS: 36415; 36592; 38222; 77075; 80053; 82232; 82784; 83615; 83883; 84155; 84165; 85025; 85060; 85097; 86850; 86900; 86901; 88305; 88311; 88313; 88341; 88342; 93971; 96360; 96374; 96523; 99000; 99213; 99214; 99215; 99354; J2997

== ENCOUNTER 2019-09-09 11:34 | Observation (INO) | payer MEDICARE, OTHER, SELFPAY ==
--- NOTE | 2019-09-09 11:34 | DI.RAD.S_ITS ---
PROCEDURE: XR HIP W PEL IF DONE RT 2V INDICATIONS: severe pain, known bone cancer recent pathologic fracture TECHNIQUE: 2 views of the hip were acquired. COMPARISON: [facility], CT, CT HIP LEFT WITHOUT CONTRAST, 07/20/2019, 13:13. [facility], CR, XR PELVIS WITH LATERAL HIP LEFT, 07/20/2019, 12:04. FINDINGS: Bones: No displaced fracture or dislocation of the right hip is evident. There is questionable nondisplaced fracture involving the superior pubic ramus. No widening of the pubis symphysis is evident. Sclerosis and heterogeneity involving the left iliac bone is similar to the previous exam, probably representing a healing pathologic fracture. The patient's known lytic lesions that were present on the patient's prior CT are less well seen on conventional radiography. Soft tissues: No suspicious soft tissue calcifications or masses. IMPRESSION: 1. No acute fractures of the right hip. 2. Possible pathologic fracture involving the right superior pubic ramus. Please consider CT for further evaluation. Dictated by: Alex Zamora M.D. on 09/09/2019 at 11:24 Approved by: Alex Zamora M.D. on 09/09/2019 at 11:28
[2019-09-09 11:39] VITALS: BP 119/56; PULSE 78; RESP 13; TEMP 36.8; O2SAT 100
[2019-09-09 11:59] LABS: Add Manual Diff / Slide Review NO; Basophils Absolute Auto 0 /uL (0-100); Basophils Percent Auto 0.3 % (0-2); Eosinophils Absolute Auto 100 /uL (0-450); Eosinophils Percent Auto 2.3 % (2-4); Hemoglobin 9.3 g/dL (12.0-16.0); Lymphocytes Absolute Auto 400 /uL (1100-4500); Lymphocytes Percent Auto 6.4 % (25-40); Mean Corpuscular HGB Conc 34.4 % (30-36); Mean Corpuscular Hemoglobin 31.9 PG (26-34); Monocytes Absolute Auto 700 /uL (0-900); Monocytes Percent Auto 12.5 % (3-14); Neutrophils Absolute Auto 4600 /uL (1500-7000); Neutrophils Percent Auto 78.5 % (50-75); Platelet Count 145 X10^3/uL (150-400); Red Blood Cell Count 2.91 X10^6/uL (4.0-5.2); Red Cell Distribution Width 14.6 % (11.6-14.8); White Blood Cell Count 5.8 X10^3/uL (4.5-11.0)
[2019-09-09] MEDS: HYDROMORPHONE 0.5 MG INJ IV ×3 (12:02→16:10)
[2019-09-09] MEDS: SODIUM CHLORIDE 0.9% 1,000 ML 100 ML IV (12:03)
[2019-09-09 12:12] LABS: BUN Creatinine Ratio 22.9 (6-22); Blood Urea Nitrogen 32 mg/dL (7-17); Calcium 8.3 mg/dL (8.4-10.2); Carbon Dioxide 21 mmol/L (22-32); Chloride 106 mmol/L (98-107); Estimated Glomerular Filt Rate 36.1 mL/min (>60); Glucose 231 mg/dL (80-110); HEMOLYSIS 26 (0-50); Potassium 4.7 mmol/L (3.4-5.1); Sodium 135 mmol/L (137-145)
--- NOTE | 2019-09-09 12:14 | ED.LOWEXIN ---
HPI - Extremity Injury (Lower) General Chief Complaint: Extremity Injury, Lower Stated Complaint: Right Leg Pain Time Seen by Provider: 09/09/19 11:34 Source: patient and EMS Mode of arrival: EMS Limitations: no limitations History of Present Illness HPI Narrative: 79-year-old female nonsmoker with history of multiple myeloma presents with a chief complaint of severe right hip pain for the past 2 days in the absence of any injury. She has had pathologic fractures in the past and in fact was recently discharged from an extended care facility to home. She admits to excruciating pain with any range of motion and improvement with rest. She denies any numbness, tingling or weakness. She has had no fever chills and denies any trouble controlling bowel or bladder. She was transported by EMS and refused IV ear pain control in route but quickly changes her mind on arrival MD complaint: hip injury Onset (ago): day(s) Place: home Severity: severe Relieving factors: rest Exacerbating factors: weight bearing and movement Context: other Associated symptoms: unable to bear weight Related Data Home Medications Medication Instructions Recorded Confirmed multivitamin [Multiple Vitamins] 1 tab PO QDAY #0 05/12/17 09/09/19 propranolol 160 mg PO QAM #0 01/14/18 09/09/19 sertraline 100 mg PO DAILY 03/30/18 09/09/19 acetaminophen 650 mg PO Q8H 01/25/19 09/09/19 cyanocobalamin (vitamin B-12) 1,000 mcg PO DAILY 01/25/19 09/09/19 dexamethasone 20 mg PO QWEEK 06/29/19 09/09/19 diclofenac sodium 0 g TOPICAL BID 06/29/19 09/09/19 levothyroxine [Synthroid] 150 mcg PO DAILY 06/29/19 09/09/19 ondansetron 4 mg PO TID PRN 06/29/19 09/09/19 tizanidine 2 mg PO Q6H PRN 06/29/19 09/09/19 warfarin 3 mg PO DAILY 06/29/19 09/09/19 Previous Rx's Medication Instructions Recorded oxycodone-acetaminophen 1 tab PO Q4H PRN #20 tab MDD 01/27/19 4000mg acetaminophen Allergies Allergy/AdvReac Type Severity Reaction Status Date / Time morphine Allergy Severe STROKE Verified 06/29/19 13:07 LIKE SYMPTOMS levofloxacin Allergy Intermediate HIVES Verified 06/29/19 13:07 adhesive [ADHESIVE] Allergy Mild BLISTERS Verified 06/29/19 13:07 celecoxib Allergy Mild RASH, Verified 06/29/19 13:07 SMALL BLISTERS, NAUSEA Penicillins Allergy Mild RASH Verified 06/29/19 13:07 phenazopyridine Allergy Mild VOMITING Verified 06/29/19 13:07 [From PYRIDIUM] Sulfa (Sulfonamide Allergy Mild BLISTERS Verified 06/29/19 13:07 Antibiotics) lactose [LACTOSE] Allergy Unknown Verified 06/29/19 13:07 Review of Systems Constitutional Constitutional: Denies chills, Denies fatigue, Denies fever(s), Denies frequent falls, Denies lethargy and Denies weakness Eyes Eyes: Denies change in vision, Denies eye discharge, Denies irritation and Denies loss of vision ENT Ears, Nose, Mouth, and Throat: Denies change in voice, Denies dizziness, Denies neck pain, Denies sore throat and Denies throat swelling Cardiovascular Cardiovascular: Denies chest pain, Denies irregular heart rhythm, Denies lightheadedness, Denies palpitations, Denies dyspnea, Denies dyspnea on exertion and Denies orthopnea Respiratory Respiratory: Denies cough, Denies dyspnea, Denies dyspnea on exertion and Denies wheezing Gastrointestinal Gastrointestinal: Denies abdominal pain, Denies change in bowel habits, Denies diarrhea, Denies nausea and Denies vomiting Genitourinary Genitourinary: Denies hematuria, Denies flank pain, Denies urinary incontinence and Denies urinary urgency Musculoskeletal Musculoskeletal: Reports abnormal gait, Denies back pain, Reports limited range of motion, Denies muscle weakness, Denies neck pain, Denies numbness and Denies tingling Integumentary/Breasts Skin/Breast: Denies pruritus, Denies erythema, Denies rash and Denies wounds Neurologic Neurologic: Reports abnormal gait, Denies behavioral changes, Denies confusion, Denies dizziness, Denies frequent falls, Denies loss of vision, Denies numbness, Denies tingling and Denies weakness Psychiatric Psychiatric: Denies anxiety, Denies behavioral changes, Denies confusion, Denies depression, Denies homicidal ideation and Denies suicidal ideation Endocrine Endocrine: Denies fatigue, Denies flushing and Denies palpitations Hematologic/Lymphatic Hematologic/Lymphatic: Denies easy bruising Allergic/Immunologic Allergic/Immunologic: Denies urticaria, Denies throat swelling and Denies wheezing Patient History Medical History Acute urinary retention (Acute) ATN (acute tubular necrosis) (Acute) Depression (Acute) History of UTI (Acute) Hypertension (Acute) Inpatient management required (Acute) Multiple myeloma (Chronic) Multiple myeloma (Acute) Nausea (Acute) Neuropathy (Acute) Pulmonary embolus (Acute) Renal cell carcinoma (Acute) UTI (urinary tract infection) due to Enterococcus (Acute) Surgical History History of cholecystectomy (Acute) History of nephrectomy, right (Acute) History of tonsillectomy (Acute) Hx of appendectomy (Acute) Family History Mother No problems noted. Father No problems noted. Social History household members: caregiver and none Smoking Status: Never smoker alcohol intake: current alcohol intake frequency: holidays/special occasions only Substance Use Type: does not use Exam Narrative Exam Narrative: GENERAL: [79] year old patient appears stated age. Well-nourished, well-developed patient, in severe distress. Complaining of severe right hip and groin pain HEAD: Atraumatic. Normocephalic. EYES: Pupils equal round and reactive. Extraocular motions intact. No scleral icterus. No injection or drainage. ENT: Nose without bleeding, purulent drainage. Throat without erythema, tonsillar hypertrophy or exudate. Airway patent. NECK: Trachea midline. Non tender CARDIOVASCULAR: Regular rate and rhythm without murmurs, gallops, or rubs. RESPIRATORY: Clear to auscultation. Breath sounds equal bilaterally. No wheezes, rales, or rhonchi. GASTROINTESTINAL: Abdomen soft, non-tender, nondistended. EXTREMITIES: No edema or joint tenderness. No shortening or external rotation, back neurovascularly intact. Passive range of motion of right hip causes excruciating pain in her groin BACK: Nontender without deformity or crepitance. No flank tenderness. NEURO: AOx3. SKIN: No rash or erythema of visible areas Initial Vital Signs Initial Vital Signs: Vital Signs Temperature 98.3 F 09/09/19 11:39 Pulse Rate 78 09/09/19 11:39 Respiratory Rate 13 09/09/19 11:39 Blood Pressure 119/56 L 09/09/19 11:39 Pulse Oximetry 100 09/09/19 11:39 Course Orders Ordered: ED Orders 09/09/19 11:34 XR hip w pel if done RT 2V Stat 09/09/19 11:53 Basic Metabolic Panel Stat Complete Blood Count AUTO DIFF Stat 09/09/19 12:23 CT pelvis wo con Stat 09/09/19 13:14 [place] [facility] [place] Acetaminophen (Tylenol) 650 mg PO Q8H [facility] Last Admin: 09/09/19 16:33 Dose: 650 mg Documented by: ROSIBEL Bisacodyl (Dulcolax) 10 mg [place] DAILY PRN PRN Reason: Constipation Cyanocobalamin (Vitamin B-12) 1,000 mcg PO DAILY [facility] Dexamethasone (Decadron) 20 mg PO [place]@0900 [facility] Enoxaparin Sodium (Lovenox) 30 mg SUBCUT DAILY [facility] Guaifenesin (Mucinex) 600 mg PO Q12HR PRN PRN Reason: Cough Hydromorphone HCl (Dilaudid) 0.5 mg IV Q4H PRN PRN Reason: Pain, Severe (7-10) Last Admin: 09/09/19 16:10 Dose: 0.5 mg Documented by: ROSIBEL Sodium Chloride (Normal Saline 0.9%) 1,000 mls @ 100 mls/hr IV BOLUS ONE Stop: 09/09/19 22:01 Last Admin: 09/09/19 12:03 Dose: 100 mls/hr Documented by: MORENITA Dextrose/Sodium Chloride (Dextrose 5%-0.45% Ns) 1,000 mls @ 100 mls/hr IV CONT ANGELES Last Admin: 09/09/19 16:36 Dose: 100 mls/hr Documented by: ROSIBEL Ipratropium [place] (Atrovent 0.06% Nasal [place]) 1 spray NASAL BID [facility] Levothyroxine Sodium (Synthroid) 150 mcg PO DAILY@0600 [facility] Naloxone HCl (Narcan) 0.2 mg IV Q2MIN PRN PRN Reason: Opiate Reversal Ondansetron HCl (Zofran) 4 mg IV Q8HR PRN PRN Reason: Nausea And Vomiting Oxycodone/Acetaminophen (Percocet 5/325) 1 tab PO Q4H PRN PRN Reason: Pain (Scale Score 7-10) Propranolol HCl (Inderal) 80 mg PO DAILY [facility] Sennosides (Senna) 17.2 mg PO BEDTIME ANGELES Sertraline HCl (Zoloft) 100 mg PO DAILY [facility] Tizanidine HCl (Zanaflex) 2 mg PO Q6H PRN PRN Reason: Muscle Spasm Warfarin Sodium (Coumadin) 3 mg PO DAILY ANGELES Discontinued Medications Acetaminophen (Tylenol) 650 mg PO Q6HR PRN PRN Reason: As Needed for Fever/Mild Pain Hydromorphone HCl (Dilaudid) 0.5 mg IV NOW ONE Stop: 09/09/19 11:35 Last Admin: 09/09/19 12:02 Dose: 0.5 mg Documented by: MORENITA Hydromorphone HCl (Dilaudid) 0.5 mg IV NOW ONE Stop: 09/09/19 14:14 Last Admin: 09/09/19 14:17 Dose: 0.5 mg Documented by: DANILO Vital Signs Vital signs: Vital Signs - 8 hr 09/09/19 11:39 09/09/19 13:08 Temperature 98.3 F Pulse Rate 78 83 Respiratory Rate 13 18 Blood Pressure 119/56 L Blood Pressure [Right Arm] 112/77 Pulse Oximetry 100 99 MDM - Extremity Injury (Lower) Lab Data Result diagrams: 09/09/19 11:53 09/09/19 11:53 Labs: Lab Results 09/09/19 09/09/19 Range/Units 11:53 11:53 WBC 5.8 (4.5-11.0) X10^3/uL RBC 2.91 L (4.0-5.2) X10^6/uL Hgb 9.3 L (12.0-16.0) g/dL Hct 27.0 L (36-46) % MCV 93.0 (80-100) fL MCH 31.9 (26-34) PG MCHC 34.4 (30-36) % RDW 14.6 (11.6-14.8) % Plt Count 145 L (150-400) X10^3/uL Neut % (Auto) 78.5 H (50-75) % Lymph % (Auto) 6.4 L (25-40) % [place] % (Auto) 12.5 (3-14) % Eos % (Auto) 2.3 (2-4) % Baso % (Auto) 0.3 (0-2) % Neut # (Auto) 4600 (4179-1004) /uL Lymph # (Auto) 400 L (1040-9722) /uL [place] # (Auto) 700 (0-900) /uL Eos # (Auto) 100 (0-450) /uL Baso # (Auto) 0 (0-100) /uL Sodium 135 L (137-145) mmol/L Potassium 4.7 (3.4-5.1) mmol/L Chloride 106 (98-107) mmol/L Carbon Dioxide 21 L (22-32) mmol/L BUN 32 H (7-17) mg/dL Creatinine 1.40 H (0.52-1.04) mg/dL Estimated GFR 36.1 L (>60) mL/min BUN/Creatinine Ratio 22.9 H (6-22) Glucose 231 H (80-110) mg/dL Calcium 8.3 L (8.4-10.2) mg/dL Imaging Data Xray Hip: Radiologist's impression: [address] [address] XRay Report Signed Patient: Lorraine Parra LMR#: [id number] : 8Acct:[id number] Age/Sex: 79 / FDate of Service: 09/09/19 Loc: ED Accession Number: [id number] Procedure: XR hip w pel if done RT 2V Ordering Provider: Devonte Gilman D.O. PROCEDURE: XR HIP W PEL IF DONE RT 2V INDICATIONS: severe pain, known bone cancer recent pathologic fracture TECHNIQUE: 2 views of the hip were acquired. COMPARISON: [facility], CT, CT HIP LEFT WITHOUT CONTRAST, 07/20/2019, 13:13. [facility], CR, XR PELVIS WITH LATERAL HIP LEFT, 07/20/2019, 12:04. FINDINGS: Bones: No displaced fracture or dislocation of the right hip is evident. There is questionable nondisplaced fracture involving the superior pubic ramus. No widening of the pubis symphysis is evident. Sclerosis and heterogeneity involving the left iliac bone is similar to the previous exam, probably representing a healing pathologic fracture. The patient's known lytic lesions that were present on the patient's prior CT are less well seen on conventional radiography. Soft tissues: No suspicious soft tissue calcifications or masses. IMPRESSION: 1. No acute fractures of the right hip. 2. Possible pathologic fracture involving the right superior pubic ramus. Please consider CT for further evaluation. Dictated by: Alex Zamora M.D. on 09/09/2019 at 11:24 Approved by: Alex Zamora M.D. on 09/09/2019 at 11:[address]: Radiologist's impression: [address] [address] [address] Scan Report Signed Patient: Lorraine Parra LMR#: [id number] : 8Acct:[id number] Age/Sex: 79 / FDate of Service: 09/09/19 Loc: ED Accession Number: [id number] Procedure: CT pelvis wo con Ordering Provider: Devonte Gilman D.O. PROCEDURE: CT PEL WO CON INDICATIONS: fracture on pelvis xray TECHNIQUE: Noncontrast 3 mm axial sections acquired through the bony pelvis, with coronal and sagittal reformatting. COMPARISON: [facility], CR, XR HIP W PEL IF DONE RT 2V, 09/09/2019, 12:04. [facility], CT, CT HIP LEFT WITHOUT CONTRAST, 07/20/2019, 13:13. FINDINGS: Image quality: Diagnostic. Bones: A very subtle nondisplaced pathologic fracture is identified involving the superior right pubic ramus. There is an associated moderate-sized lytic lesion is evident at this location. This is new since the prior study. No additional acute fractures are appreciated. There is a subacute/healing pathologic fracture evident involving the left iliac bone. Increasing size of the lytic lesions are identified involving the included lower lumbar spine, sacrum, bilateral iliac bones, and proximal femurs. Soft tissues: No soft tissue mass or drainable fluid collection is evident. However, there is enlargement of the left iliopsoas muscles along the iliac fossa, which could potentially be reactive to the patient's pathologic fracture of the left posterior iliac bone. Imaged bowel loops are nondilated. The imaged portions of the abdominal aorta and iliac arteries demonstrate atherosclerosis. Fat containing bilateral inguinal hernias are present. No significant bladder wall thickening is evident. The uterus is surgically absent. The ovaries are not definitely seen and may have been surgically removed. Incidental note is made of a lipoma involving the right internal oblique muscles. A small fat containing periumbilical hernia is present. No pelvic adenopathy is identified. No loculated fluid collections are seen. IMPRESSION: 1. No acute fractures of the right hip. 2. Subtle nondisplaced pathologic fracture involving the superior right pubic ramus. No widening of the pubis symphysis. 3. Chronic pathologic fracture of the left iliac bone. 4. Extensive metastatic lesions of the pelvis appear to be slightly larger on the current exam. 5. Enlargement of the left iliopsoas muscles within the iliac fossa probably is reactive to the posterior left iliac fracture. However, soft tissue lesion is difficult to exclude. Dictated by: Alex Zamora M.D. on 09/09/2019 at 12:01 Approved by: Alex Zamora M.D. on 09/09/2019 at 12:06 Discharge Plan Departure Patient Disposition: Admitted as Observation Clinical Impression: Pathologic pelvic fracture Qualifiers: Pathology associated with fracture: neoplastic disease Encounter type: initial encounter Qualified Code(s): M84.550A - Pathological fracture in neoplastic disease, pelvis, initial encounter for fracture Discharge Date/Time: 09/09/19 14:29 Referrals: Issa Knight MD [Primary Care Provider] - Admit Date/Time: 09/09/19 14:13 Admit Provider: Gia Miller
--- NOTE | 2019-09-09 12:23 | DI.CT.S_ITS ---
PROCEDURE: CT PEL WO CON INDICATIONS: fracture on pelvis xray TECHNIQUE: Noncontrast 3 mm axial sections acquired through the bony pelvis, with coronal and sagittal reformatting. COMPARISON: [facility], CR, XR HIP W PEL IF DONE RT 2V, 09/09/2019, 12:04. [facility], CT, CT HIP LEFT WITHOUT CONTRAST, 07/20/2019, 13:13. FINDINGS: Image quality: Diagnostic. Bones: A very subtle nondisplaced pathologic fracture is identified involving the superior right pubic ramus. There is an associated moderate-sized lytic lesion is evident at this location. This is new since the prior study. No additional acute fractures are appreciated. There is a subacute/healing pathologic fracture evident involving the left iliac bone. Increasing size of the lytic lesions are identified involving the included lower lumbar spine, sacrum, bilateral iliac bones, and proximal femurs. Soft tissues: No soft tissue mass or drainable fluid collection is evident. However, there is enlargement of the left iliopsoas muscles along the iliac fossa, which could potentially be reactive to the patient's pathologic fracture of the left posterior iliac bone. Imaged bowel loops are nondilated. The imaged portions of the abdominal aorta and iliac arteries demonstrate atherosclerosis. Fat containing bilateral inguinal hernias are present. No significant bladder wall thickening is evident. The uterus is surgically absent. The ovaries are not definitely seen and may have been surgically removed. Incidental note is made of a lipoma involving the right internal oblique muscles. A small fat containing periumbilical hernia is present. No pelvic adenopathy is identified. No loculated fluid collections are seen. IMPRESSION: 1. No acute fractures of the right hip. 2. Subtle nondisplaced pathologic fracture involving the superior right pubic ramus. No widening of the pubis symphysis. 3. Chronic pathologic fracture of the left iliac bone. 4. Extensive metastatic lesions of the pelvis appear to be slightly larger on the current exam. 5. Enlargement of the left iliopsoas muscles within the iliac fossa probably is reactive to the posterior left iliac fracture. However, soft tissue lesion is difficult to exclude. Dictated by: Aelx Zamora M.D. on 09/09/2019 at 12:01 Approved by: Alex Zamora M.D. on 09/09/2019 at 12:06
[2019-09-09 13:08] VITALS: BP 112/77; PULSE 83; RESP 18; O2SAT 99
--- NOTE | 2019-09-09 13:16 | PC.NURSE ---
hx of multiple myloma, dc from replaced by [facility] a week ago, last 2 days noticed right side achy, usually ambulate with walker, walked fine yesterday, then today with pain with wt bearings.
[2019-09-09 14:45] VITALS: BP 126/66; PULSE 84; RESP 18; TEMP 37.2; O2SAT 100
--- NOTE | 2019-09-09 14:49 | PC.NURSE ---
Day shift: Pt on unit at approx 1440 from ED. A&Ox3. Oriented to room and call light. Rt hip pain with any movement. Used slider board for transfer to AC bed and she did cry out 3 times but otherwise tolerated well. Suggested Lehman cath to . Ok by MD for Pt to have water at this time. Call light in reach. Bed alarm is on.
--- NOTE | 2019-09-09 15:23 | CM.IDA ---
Addendum entered by NIMA Santamaria 09/09/19 15:41: Correction: Dtr is Gracie contact P# [phone]. Pt's baseline cog status unknown (?) JW Original Note: Initial DCP Assessment Note: Pt is an 79 yo female, resident of [place]. Pt admitted obs today, w/ nondisplaced pathologic fracture involving the superior right pubic ramus according to CT report. Pt w/ hx significant for Multiple Myeloma, followed by Dr Rousseau. PCP: Issa Knight Payer: Medicare/[employer] This AUTOMOTIVE VEHICLE INSPECTOR asked to consult while pt in the ED this afternoon in case she could admit straight to [facility] from ED? Pt agreeable. Reviewed notes. Placed call to March and she explained pt went home from [facility] w/[facility] 09.01.19. She had admitted to [facility] from [facility], prior to that admission,[facility] had said pt was inpt status, it turned out she was obs. [facility] was still able to gain reimbursement by using pt's Medicaid and Med B coverage. [facility] has reviewed w/administrators and they can accept pt tomorrow, Wednesday. They will again use pt's Medicaid coverage and the remainder of her Med B coverage for therapies before her return home w/[facility] through [facility]. This AUTOMOTIVE VEHICLE INSPECTOR unable to meet w/pt today, pt in process of transfer from ER to acute care floor. Notes indicate pt is A+O but local dtr (Arpita?) lives near pt and active in her care. PASRR completed in anticipation of SNF admission Wednesday, pt/family will need to be consulted in the AM re: plan Following closely. NIMA Santamaria
[2019-09-09 16:00] VITALS: O2SAT 99; BMI 37.8
[2019-09-09 16:10] VITALS: BP 138/68; PULSE 81; RESP 20; TEMP 36.2; O2SAT 94
--- NOTE | 2019-09-09 16:17 | P.HP_ITS ---
History of Present Illness History of Present Illness Date Patient Seen: 09/09/19 Chief complaint: Right Leg Pain Narrative: Patient is an 79-year-old female with a history of multiple myeloma, history of renal cell carcinoma status post right nephrectomy, pulmonary embolus, hypertension, frequent urinary tract infection, stage III chronic kidney disease, recently diagnosed with a inferior pubic ramus fracture on the left. Patient was treated at [facility] and transferred to [facility]. Patient left the longterm 1 week ago. She return to her home with caregivers around the clock. She noted yesterday pain in her right groin. Initially she thought she was constipated. Today she was unable to walk. As the patient has had previous episodes of pelvic fractures she presented to the emergency room for further evaluation. The patient underwent an x-ray of the pelvis in the ED, in addition to a CT scan of the pelvis, the CT findings are as follows No acute fractures of the right hip. 2. Subtle nondisplaced pathologic fracture involving the superior right pubic ramus. No widening of the pubis symphysis. 3. Chronic pathologic fracture of the left iliac bone. 4. Extensive metastatic lesions of the pelvis appear to be slightly larger on the current exam. 5. Enlargement of the left iliopsoas muscles within the iliac fossa probably is reactive to the posterior left iliac fracture. However, soft tissue lesion is difficult to exclude. As the patient just left the [facility] 1 week ago attempts were made for her to return this evening. While they agreed to accept the patient back in transfer she will unable to go until tomorrow. Patient does report pain at rest. She has pain with minimal activity. She recently had runny nose and sinus congestion. She has had a nonproductive cough. She denies any fever or chills. She has no headache. She does report some discharge from her eyes. Patient reports a history of frequent urinary tract infections. She notes that when she has 1 she has cloudy urine. Patient denies any dysuria hematuria or pyuria at this time. She has no nausea vomiting or diarrhea. She denies any chest pain or shortness of breath. Patient is admitted to the hospital for pain control with plans to transfer to the residential facility for ongoing care. I discussed with the patient the possibility of hospice consultation. She does feel that his despite her multiple fracture she has done relatively well. She is concerned however about returning to her home alone a managing independently. Patient is agreeable to an informational hospice visit when she arrives at for [facility]. Patient History Medical History Acute urinary retention (Acute) ATN (acute tubular necrosis) (Acute) Depression (Acute) History of UTI (Acute) Hypertension (Acute) Inpatient management required (Acute) Multiple myeloma (Chronic) Multiple myeloma (Acute) Nausea (Acute) Neuropathy (Acute) Pulmonary embolus (Acute) Renal cell carcinoma (Acute) UTI (urinary tract infection) due to Enterococcus (Acute) Surgical History History of cholecystectomy (Acute) History of nephrectomy, right (Acute) History of tonsillectomy (Acute) Hx of appendectomy (Acute) Family & Social History Family History Mother No problems noted. Father No problems noted. Social History: household members caregiver,none Safety & Behavioral: Feels Safe in Current Yes Environment Tobacco & Substance use: Smoking Status Never smoker alcohol intake current alcohol intake frequency holiday/special occasion Substance Use Type does not use Meds Home Medications and Allergies Home Medications Medication Instructions Recorded Confirmed Type multivitamin [Multiple Vitamins] 1 tab PO QDAY #0 05/12/17 08/30/19 History propranolol 80 mg PO QAM #0 01/14/18 08/30/19 History sertraline 100 mg PO DAILY 03/30/18 08/30/19 History acetaminophen 650 mg PO Q8H 01/25/19 08/30/19 History cyanocobalamin (vitamin B-12) 1,000 mcg PO DAILY 01/25/19 08/30/19 History oxycodone-acetaminophen 1 tab PO Q4H PRN #20 tab MDD 01/27/19 08/30/19 Rx 4000mg acetaminophen Kerasal 1 applic TOPICAL DIRECTED 06/29/19 08/30/19 History dexamethasone 20 mg PO QWEEK 06/29/19 08/30/19 History diclofenac sodium 0 g TOPICAL BID 06/29/19 08/30/19 History levothyroxine [Synthroid] 150 mcg PO DAILY 06/29/19 08/30/19 History ondansetron 4 mg PO TID PRN 06/29/19 08/30/19 History tizanidine 2 mg PO Q6H PRN 06/29/19 08/30/19 History warfarin 3 mg PO DAILY 06/29/19 08/30/19 History Allergies Allergy/AdvReac Type Severity Reaction Status Date / Time morphine Allergy Severe STROKE Verified 06/29/19 13:07 LIKE SYMPTOMS levofloxacin Allergy Intermediate HIVES Verified 06/29/19 13:07 adhesive [ADHESIVE] Allergy Mild BLISTERS Verified 06/29/19 13:07 celecoxib Allergy Mild RASH, Verified 06/29/19 13:07 SMALL BLISTERS, NAUSEA Penicillins Allergy Mild RASH Verified 06/29/19 13:07 phenazopyridine Allergy Mild VOMITING Verified 06/29/19 13:07 [From PYRIDIUM] Sulfa (Sulfonamide Allergy Mild BLISTERS Verified 06/29/19 13:07 Antibiotics) lactose [LACTOSE] Allergy Unknown Verified 06/29/19 13:07 Review of Systems Review of Systems ROS Unobtainable: All systems reviewed & are unremarkable except as noted in HPI and below Exam Vital Signs (past 8 hours): - 09/09/19 11:39 09/09/19 13:08 09/09/19 14:45 Temperature 98.3 F 99 F Pulse Rate 78 83 84 Respiratory Rate 13 18 18 Blood Pressure 119/56 L 126/66 Blood Pressure [Right Arm] 112/77 Pulse Oximetry 100 99 100 Oxygen Delivery Method Room Air Oxygen Flow Rate 0 Narrative Exam Narrative: Pleasant elderly female with intermittent spasms of pain HEENT: Normocephalic atraumatic, extraocular muscles are intact oropharynx is clear, she has poor dentition, her neck is supple, Lungs: Clear to auscultation Cardiac exam: Regular rate and rhythm normal S1-S2 with a 2/6 systolic ejection murmur Abdomen: Soft nontender nondistended, she does have tenderness in the right groin Extremities: No edema, bilateral surgical scars on the knees. Neuro exam: She is awake alert and oriented, she answers questions appropriately, her cranial nerves are intact, strength is symmetric and equal in the upper extremities, unable to evaluate lower extremity strength given her pubic ramus fracture Skin exam: No evidence of lesions, no rashes noted, no ulcerations, Muscle: Normal bulk and tone of muscles of her upper and lower extremities Psychiatric exam: Patient is awake and alert, she has no evidence of delusions or hallucinations. Objective Labs Result Diagrams: 09/09/19 11:53 09/09/19 11:53 Labs: Laboratory Results - last 24 hr 09/09/19 09/09/19 11:53 11:53 WBC 5.8 RBC 2.91 L Hgb 9.3 L Hct 27.0 L MCV 93.0 MCH 31.9 MCHC 34.4 RDW 14.6 Plt Count 145 L Neut % (Auto) 78.5 H Lymph % (Auto) 6.4 L [place] % (Auto) 12.5 Eos % (Auto) 2.3 Baso % (Auto) 0.3 Neut # (Auto) 4600 Lymph # (Auto) 400 L [place] # (Auto) 700 Eos # (Auto) 100 Baso # (Auto) 0 Sodium 135 L Potassium 4.7 Chloride 106 Carbon Dioxide 21 L BUN 32 H Creatinine 1.40 H Estimated GFR 36.1 L BUN/Creatinine Ratio 22.9 H Glucose 231 H Calcium 8.3 L Assessment & Plan Assessment & Plan narrative: Impression 1. 79-year-old female with a history of multiple myeloma, metastatic to her pelvis, recently treated for an inferior pubic ramus fracture who now presents for a superior pubic ramus fracture. This is a nontraumatic spontaneous fracture. Patient is likely osteoporotic and for prone for recurrent fracture related to her underlying multiple myeloma. Patient is under the care of Dr. Rousseau. She was scheduled for chemotherapy this week and changed her mind regarding IV chemotherapy. She apparently was taking an oral agent previously which she tolerated well. At this time Lehman catheter will be placed, the patient will be seen by physical therapy and occupational therapy. We will transfer her to the [facility] tomorrow for ongoing rehabilitation. 2. History of renal cell carcinoma, patient with 1 solitary kidney, also known to have chronic kidney disease stage 3. She also has frequent urinary tract infections. She is asymptomatic at this time. Her UA is positive. Will defer antibiotics at this time as the patient is without symptoms. 3. Multiple myeloma, active with metastatic disease. Patient declined chemotherapy this week. However will continue dexamethasone as part of her outpatient regimen 4. Hypothyroidism, continue levothyroxine 5. Essential tremor, continue propanolol 6. Anemia, chronic, likely related to her underlying multiple myeloma no evidence or suggestion for need of transfusion at this time, will continue to follow her CBC accordingly. 7. History of pulmonary embolus, patient is on warfarin, will continue warfarin and check protime and INR. 8. . Depression, continue Zoloft 9. , possible upper respiratory infection, will obtain respiratory viral cultures, and treat symptomatically. Patient indicates she is a full code, note that her record accordingly. She is interested in hospice informational visit which will arrange for her as an outpatient.
[2019-09-09] MEDS: ACETAMINOPHEN 325 MG TABLET 650 MG PO (16:33)
[2019-09-09] MEDS: DEXTROSE 5%-0.45% NS 1,000 ML 100 ML IV (16:36)
--- NOTE | 2019-09-09 17:47 | PC.ADMIT ---
[email or web address] [facility] Admission Note: The patient,Lorraine Parra,79 y/o, was given written information regarding hospital policies, unit procedures and contact persons. Patient's smoking status: Never smoker. Vital Signs - 8 hr 09/09/19 11:39 09/09/19 13:08 09/09/19 14:45 Temperature 98.3 F 99 F Pulse Rate 78 83 84 Respiratory Rate 13 18 18 Blood Pressure 119/56 L 126/66 Blood Pressure [Right Arm] 112/77 Pulse Oximetry 100 99 100 09/09/19 16:00 Temperature Pulse Rate Respiratory Rate Blood Pressure Blood Pressure [Right Arm] Pulse Oximetry 99 Patient admitted to room 217 from ED, transferred via sliding board. Oriented to room, environment, and plan of call. High fall risk interventions initiated. SCDs applied. Call light within reach. Belongings placed in safe.
[2019-09-09] MEDS: SENNOSIDES 8.6 MG TABLET 17.2 MG PO (20:31)
[2019-09-09] MEDS: OXYCODONE/ACETAMINOPHEN 5/325 TABLET 1 TAB PO (20:31)
[2019-09-09 20:44] VITALS: BP 135/63; PULSE 95; RESP 18; TEMP 36.6
--- NOTE | 2019-09-09 21:43 | PC.NURSE ---
Tati shift note: Received patient from ED, accessed port to left upper chest with IVF noted. Port a cath access, secured with no s/sx of infiltration to surrounding tissue. NO BP to right arm due to pain, per patient arm is sensitive due to tumor in the area. Patient unable to turn self, very helpful with mobility with assistance, turning every 2 hours. Needs paced movements due to bone pain and muscle spasms. Calls appropriately for assistance. call light within reach.
[2019-09-10 00:30] VITALS: BP 115/45; PULSE 93; RESP 18; TEMP 36.6; O2SAT 96
[2019-09-10] MEDS: DEXTROSE 5%-0.45% NS 1,000 ML 100 ML IV (02:03)
[2019-09-10] MEDS: HYDROMORPHONE 0.5 MG INJ IV (05:07)
[2019-09-10] MEDS: LEVOTHYROXINE 150 MCG TABLET PO (05:08)
[2019-09-10 05:59] LABS: Add Manual Diff / Slide Review NO; Basophils Absolute Auto 0 /uL (0-100); Basophils Percent Auto 0.4 % (0-2); Eosinophils Absolute Auto 100 /uL (0-450); Eosinophils Percent Auto 2.9 % (2-4); Hematocrit 25.8 % (36-46); Hemoglobin 8.8 g/dL (12.0-16.0); Lymphocytes Absolute Auto 400 /uL (1100-4500); Lymphocytes Percent Auto 8.6 % (25-40); Mean Corpuscular HGB Conc 34.1 % (30-36); Mean Corpuscular Hemoglobin 31.8 PG (26-34); Mean Corpuscular Volume 93.2 fL (80-100); Monocytes Absolute Auto 700 /uL (0-900); Neutrophils Absolute Auto 3100 /uL (1500-7000); Neutrophils Percent Auto 72.1 % (50-75); Platelet Count 148 X10^3/uL (150-400); Red Blood Cell Count 2.77 X10^6/uL (4.0-5.2); White Blood Cell Count 4.3 X10^3/uL (4.5-11.0)
[2019-09-10 06:00] VITALS: BP 115/51; PULSE 88; RESP 18; TEMP 37.1; O2SAT 99
[2019-09-10 06:07] LABS: BUN Creatinine Ratio 18.2 (6-22); Blood Urea Nitrogen 20 mg/dL (7-17); Calcium 8.2 mg/dL (8.4-10.2); Carbon Dioxide 25 mmol/L (22-32); Chloride 107 mmol/L (98-107); Estimated Glomerular Filt Rate 47.7 mL/min (>60); Glucose 191 mg/dL (80-110); HEMOLYSIS < 15 (0-50); Potassium 4.2 mmol/L (3.4-5.1); Sodium 138 mmol/L (137-145)
[2019-09-10] MEDS: OXYCODONE/ACETAMINOPHEN 5/325 TABLET 1 TAB PO ×2 (06:37→10:36)
[2019-09-10 07:00] VITALS: BP 130/69; PULSE 86; RESP 16; TEMP 36.9; O2SAT 96
[2019-09-10 08:27] LABS: Adenovirus Not Detected (Not Detect); Coronavirus 229E Not Detected (Not Detect); Coronavirus HKU1 Not Detected (Not Detect); Coronavirus NL 63 Not Detected (Not Detect); Coronavirus OC43 Not Detected (Not Detect); Human Metapneumovirus Not Detected (Not Detect); Human Rhinovirus/Enterovirus Not Detected (Not Detect); Influenza A Not Detected (Not Detect)
[2019-09-10 08:28] LABS: Bordetella pertussis Not Detected (Not Detect); Chlamydophila pneumoniae Not Detected (Not Detect); Influenza B Not Detected (Not Detect); Mycoplasma pneumoniae Not Detected (Not Detect); Parainfluenza Virus 1 Not Detected (Not Detect); Parainfluenza Virus 2 Not Detected (Not Detect); Parainfluenza Virus 3 Not Detected (Not Detect); Parainfluenza Virus 4 Not Detected (Not Detect); Respiratory Syncytial Virus Not Detected (Not Detect)
--- NOTE | 2019-09-10 09:10 | PM.DS.1 ---
History of Present Illness History of Present Illness Chief complaint: Right Leg Pain Narrative: Patient is an 79-year-old female with a history of multiple myeloma, history of renal cell carcinoma status post right nephrectomy, pulmonary embolus, hypertension, frequent urinary tract infection, stage III chronic kidney disease, recently diagnosed with a inferior pubic ramus fracture on the left. Patient was treated at [facility] and transferred to [facility]. Patient left the longterm 1 week ago. She return to her home with caregivers around the clock. She noted yesterday pain in her right groin. Initially she thought she was constipated. Today she was unable to walk. As the patient has had previous episodes of pelvic fractures she presented to the emergency room for further evaluation. The patient underwent an x-ray of the pelvis in the ED, in addition to a CT scan of the pelvis, the CT findings are as follows No acute fractures of the right hip. 2. Subtle nondisplaced pathologic fracture involving the superior right pubic ramus. No widening of the pubis symphysis. 3. Chronic pathologic fracture of the left iliac bone. 4. Extensive metastatic lesions of the pelvis appear to be slightly larger on the current exam. 5. Enlargement of the left iliopsoas muscles within the iliac fossa probably is reactive to the posterior left iliac fracture. However, soft tissue lesion is difficult to exclude. As the patient just left the [facility] 1 week ago attempts were made for her to return this evening. While they agreed to accept the patient back in transfer she will unable to go until tomorrow. Patient does report pain at rest. She has pain with minimal activity. She recently had runny nose and sinus congestion. She has had a nonproductive cough. She denies any fever or chills. She has no headache. She does report some discharge from her eyes. Patient reports a history of frequent urinary tract infections. She notes that when she has 1 she has cloudy urine. Patient denies any dysuria hematuria or pyuria at this time. She has no nausea vomiting or diarrhea. She denies any chest pain or shortness of breath. Patient is admitted to the hospital for pain control with plans to transfer to the nursing home facility for ongoing care. I discussed with the patient the possibility of hospice consultation. She does feel that his despite her multiple fracture she has done relatively well. She is concerned however about returning to her home alone a managing independently. Patient is agreeable to an informational hospice visit when she arrives at for [facility]. Discharge Providers Provider Date of admission: 09/09/19 14:13 Discharge Date: 09/10/19 Primary care physician: Issa Knight MD Consults: 09/09/19 13:14 [place] to [facility] [place] Advertising Sales Representative Stat Comment: recent discharge from [facility] Consult: [facility] Need 09/09/19 15:37 Consult to Occupational Therapy Evaluate & Treat Comment: Physician Instructions: Evaluate and treat Consult to Physical Therapy Evaluate & Treat Comment: Physician Instructions: Evaluate and Treat Discharge provider: Gia Miller MD Summary Hospital Course Discharge Diagnosis: 1. Right superior pubic ramus fracture 2. Chronic left inferior pubic ramus fracture 3. Multiple myeloma with mets to the pelvic region 4. Essential tremor 5. History of renal cell carcinoma, status post nephrectomy 6. Stage 3 chronic kidney disease 7. History of pulmonary embolism, on Coumadin 8. Hypertension 9. History of frequent urinary tract infection 10. Anemia, secondary to multiple myeloma, and slightly delusional Exam Vital Signs (past 8 hours): - 09/10/19 06:00 09/10/19 07:00 Temperature 98.8 F 98.5 F Pulse Rate 88 86 Respiratory Rate 18 16 Blood Pressure 115/51 L 130/69 Pulse Oximetry 99 96 Oxygen Delivery Method Room Air Oxygen Flow Rate 0 Narrative Exam Narrative: Pleasant female resting comfortably in no obvious distress Lungs: Clear to auscultation Cardiac exam: Regular rate and rhythm normal S1-S2 with a 2/6 systolic ejection murmur Abdomen: Soft nontender nondistended Extremities: No edema, pain with minimal movement of the right leg Objective Labs Result Diagrams: 09/10/19 05:48 09/10/19 05:48 Labs: Laboratory Results - last 24 hr 09/09/19 09/09/19 09/10/19 11:53 11:53 05:48 WBC 5.8 4.3 L RBC 2.91 L 2.77 L Hgb 9.3 L 8.8 L Hct 27.0 L 25.8 L MCV 93.0 93.2 MCH 31.9 31.8 MCHC 34.4 34.1 RDW 14.6 14.0 Plt Count 145 L 148 L Neut % (Auto) 78.5 H 72.1 Lymph % (Auto) 6.4 L 8.6 L [place] % (Auto) 12.5 16.0 H Eos % (Auto) 2.3 2.9 Baso % (Auto) 0.3 0.4 Neut # (Auto) 4600 3100 Lymph # (Auto) 400 L 400 L [place] # (Auto) 700 700 Eos # (Auto) 100 100 Baso # (Auto) 0 0 Sodium 135 L Potassium 4.7 Chloride 106 Carbon Dioxide 21 L BUN 32 H Creatinine 1.40 H Estimated GFR 36.1 L BUN/Creatinine Ratio 22.9 H Glucose 231 H Calcium 8.3 L Chlamy pneumoniae PCR Adenovirus (PCR) B.parapertussis DNA PCR Coronavirus OC43 (PCR) Coronavirus HKU1 (PCR) Coronavirus 229E (PCR) Coronavirus NL63 (PCR) Human Metapneumovir PCR Influenza Type A (PCR) Influenza Type B (PCR) M. pneumoniae (PCR) Parainfluenza 1 (PCR) Parainfluenza 2 (PCR) Parainfluenza 3 (PCR) Parainfluenza 4 (PCR) RSV (PCR) Entero/Rhino (PCR) 09/10/19 09/10/19 05:48 06:40 WBC RBC Hgb Hct MCV MCH MCHC RDW Plt Count Neut % (Auto) Lymph % (Auto) [place] % (Auto) Eos % (Auto) Baso % (Auto) Neut # (Auto) Lymph # (Auto) [place] # (Auto) Eos # (Auto) Baso # (Auto) Sodium 138 Potassium 4.2 Chloride 107 Carbon Dioxide 25 BUN 20 H Creatinine 1.10 H Estimated GFR 47.7 L BUN/Creatinine Ratio 18.2 Glucose 191 H Calcium 8.2 L Chlamy pneumoniae PCR Not detected Adenovirus (PCR) Not detected B.parapertussis DNA PCR Not detected Coronavirus OC43 (PCR) Not detected Coronavirus HKU1 (PCR) Not detected Coronavirus 229E (PCR) Not detected Coronavirus NL63 (PCR) Not detected Human Metapneumovir PCR Not detected Influenza Type A (PCR) Not detected Influenza Type B (PCR) Not detected M. pneumoniae (PCR) Not detected Parainfluenza 1 (PCR) Not detected Parainfluenza 2 (PCR) Not detected Parainfluenza 3 (PCR) Not detected Parainfluenza 4 (PCR) Not detected RSV (PCR) Not detected Entero/Rhino (PCR) Not detected Discharge Plan Discharge Plan Discharge Problem: Pathologic pelvic fracture Patient Disposition: SNF Transfer to: [facility] Transportation: Cab[facility] I certify the postop hospital nursing home care is medically necessary on a continuing basis for any conditions for which he/ she received care during this hospitalization.: Yes The receiving facility has agreed to accept transfer and provide medical treatment.: Yes Discharge orders & Medications Prescriptions: New oxycodone-acetaminophen [Percocet] 10-325 mg tablet 2 tab PO Q6H PRN (Reason: pain) Qty: 30 RF: 0 guaifenesin [Mucus Relief ER] 600 mg Tablet Extended Release 12hr 600 mg PO Q12HR PRN (Reason: Cough) Qty: 15 RF: 0 ipratropium bromide 42 mcg (0.06 %) [place],Non-Aerosol 1 spray intranasal BID 30 Days RF: 0 polyvinyl alcohol [Tears Again (PVA)] 1.4 % Drops 1 drops EYE-BOTH PRN PRN (Reason: Dry Eye(S)) 15 Days RF: 0 Continued multivitamin [Multiple Vitamins] 1 EACH tablet 1 tab PO QDAY Qty: 0 RF: 0 propranolol 80 MG tablet 160 mg PO QAM Qty: 0 RF: 0 sertraline 100 mg Tablet 100 mg PO DAILY RF: 0 acetaminophen 325 mg Tablet 650 mg PO Q8H RF: 0 cyanocobalamin (vitamin B-12) 1,000 mcg Tablet 1,000 mcg PO DAILY RF: 0 warfarin 3 mg tablet 3 mg PO DAILY RF: 0 levothyroxine [Synthroid] 150 mcg tablet 150 mcg PO DAILY RF: 0 ondansetron 4 mg tablet,disintegrating 4 mg PO TID PRN (Reason: Nausea And Vomiting) RF: 0 diclofenac sodium 1 % gel 0 g TOPICAL BID RF: 0 dexamethasone 4 mg tablet 20 mg PO QWEEK RF: 0 tizanidine 2 mg tablet 2 mg PO Q6H PRN (Reason: Muscle Spasm) RF: 0 Discontinued oxycodone-acetaminophen 5-325 mg Tablet 1 tab PO Q4H MDD 4000mg acetaminophen PRN (Reason: Pain (Scale Score 7-10)) Qty: 20 RF: 0 Follow up/Referrals: Issa Knight MD [Primary Care Provider] - Diet/Activity/Treatments Diet: Diet as Tolerated and Low-sodium Liquid consistency: Normal/Thin Food texture: Regular Catheter: 2-way Lehman Skin/Wound/Dressing Care Report to your healthcare provider any signs of infection, such as:: increased pain [facility] Reason for rehabilitation: Recovery r/t decondition Rehab type: Physical therapy and Occupational therapy Discharge Data Primary Care Provider: Issa Knight Attending Provider: Gia Miller Admit Date/Time: 09/09/19 14:13
[2019-09-10] MEDS: BISACODYL 10 MG SUPP PR (09:15)
[2019-09-10] MEDS: ACETAMINOPHEN 325 MG TABLET 650 MG PO (09:15)
[2019-09-10] MEDS: SERTRALINE 50 MG TABLET 100 MG PO (09:15)
[2019-09-10] MEDS: WARFARIN 3 MG TABLET PO (09:16)
[2019-09-10] MEDS: PROPRANOLOL 40 MG TABLET 80 MG PO (09:16)
[2019-09-10] MEDS: CYANOCOBALAMIN (VITAMIN B-12) 500 MCG TABLET 1000 MCG PO (09:16)
[2019-09-10] MEDS: ENOXAPARIN 30 MG/0.3 ML SYRINGE SUBCUT (09:25)
[2019-09-10 09:45] LABS: INR 1.7 (0.9-1.3); Prothrombin Time 19.6 SECONDS (10.1-12.7)
--- NOTE | 2019-09-10 10:32 | CM.DPC ---
Addendum entered by Laura Padilla LPN 09/10/19 11:15: REG Mantilla reports pt is calling her daughter to update her on the d/c details for today. Addendum entered by Laura Padilla LPN 09/10/19 10:51: See now that NIMA Jessica did intial review yesterday as pt was in the ER. She is going to readmit under her medicaid benefit with therapies under the Medicare B process. Original Note: DCP: assessment note: case received and discussed in Team Rounds. Dr. Miller noted that pt was to dc to [facility] today, that this had been confirmed yesterday after her arrival in the ER and pt was kept until today to facilitate the d/c. She has been d/c'd from [facility] for a week and will return under her Medicare SNF benefit. [facility] confirms same and can accept pt at 1130. Dr. Miller noted that pt is in a great deal of pain with any movement and she is fragile with the pathological fract ure (in setting of metastatic lesions of pelvis.) she stated that the only appropriate transport is by BLS and has signed the Cert of Med Necessity for same. [facility] crew is called and will be here at 1130. Cert of Med Necessity form left for [facility] crew and copy to sp to scan. REG Mantilla is updated and will update pt. PASRR: completed by NIMA Jessica yesterday if reviewed with no changes/faxed to [facility]. Given to [facility] to scan and placed to snf packet. Full orders received, faxed to [facility] and placed to snf packet.
[2019-09-10] MEDS: dexAMETHasone 4 MG TABLET 20 MG PO (10:39)
--- NOTE | 2019-09-10 10:52 | PC.NURSE ---
Assess- Patient is A&Ox3, given percocet for complaints of 7/10 pain to neck and back. Pt up to use the bedside commode and had a large bm. Lehman patent putting out yellow urine. Pt is going to go over to [facility] at 1130. Wallet and carrion of 180.00 carrion counted out and given to patient along with [email or web address] visa and visa [employer] card.
--- NOTE | 2019-09-10 11:22 | CM.DPC ---
DCP/continued: At CM/Laura's request due to illness met with patient to confirm d/c plan. Current plan confirmed by is for patient to discharge to [facility] today. BLS transport arranged for 11:30AM. Patient aware and agreeable to plan. Patient reports that she has already spoken with her daughter and family aware. P: FCC today via non-urgent BLS. NIMA Montanez
--- NOTE | 2019-09-10 12:23 | PT-IP ANOTE ---
PT orders received. Discussed with hospitalist who notes pt will discharge to [facility] today. No need for PT eval at this time. Will complete this order.
== END 2019-09-10 11:30 ==
LOC: ED 14:13 → AC 14:14
PROVIDERS: Admitting Provider Internal Medicine; Emergency Provider Emergency Medicine; PCP Internal Medicine; Visit Provider Internal Medicine
DX: M84.454A Pathological fracture, pelvis, initial encounter for fracture (principal); M25.551 Pain in right hip; Z86.711 Personal history of pulmonary embolism; N18.3 Chronic kidney disease, stage 3 (moderate); Z85.89 Personal history of malignant neoplasm of other organs and systems; C90.00 Multiple myeloma not having achieved remission; G25.0 Essential tremor; Z79.01 Long term (current) use of anticoagulants; Z87.440 Personal history of urinary (tract) infections; D64.9 Anemia, unspecified; F22 Delusional disorders
CPT/HCPCS: 36415; 72192; 73502; 80048; 85025; 85610; 87633; 96361; 96372; 96374; 96376; 99282; 99284; G0378; J1170; J1650

== ENCOUNTER → 2019-09-15 15:07 | Outpatient (ROUT) | payer MEDICARE, OTHER, SELFPAY ==
[2019-09-09 16:00] VITALS: BMI 37.8
[2019-09-15 15:28] LABS: Prothrombin Time 63.4 SECONDS (10.1-12.7)
[2019-09-15 15:37] LABS: INR 5.3 (0.9-1.3)
== END ==
PROVIDERS: PCP Internal Medicine; Visit Provider Internal Medicine
DX: E11.42 Type 2 diabetes mellitus with diabetic polyneuropathy (principal)
CPT/HCPCS: 85610

== ENCOUNTER → 2019-09-28 18:12 | Outpatient (ROUT) | payer MEDICARE, OTHER, SELFPAY ==
[2019-09-09 16:00] VITALS: BMI 37.8
[2019-09-28 19:14] LABS: INR 3.4 (0.9-1.3); Prothrombin Time 40.6 SECONDS (10.1-12.7)
== END ==
PROVIDERS: PCP Internal Medicine; Visit Provider Internal Medicine
DX: Z79.01 Long term (current) use of anticoagulants (principal)
CPT/HCPCS: 85610

== ENCOUNTER 2019-10-21 14:57 | Emergency (ER) | payer MEDICARE, OTHER, SELFPAY ==
[2019-10-21] VITALS (15 sets, daily range): BP systolic 85–113; BP diastolic 48–75; PULSE 85–91; RESP 13–24; TEMP 36.9–37.2; O2SAT 95–100
--- NOTE | 2019-10-21 14:57 | ED_ITS ---
HPI - Neuro Symptoms/Deficit General Chief Complaint: Neuro Symptoms/Deficit Stated Complaint: change in mental status Time Seen by Provider: 10/21/19 14:57 Source: EMS and other (Care facility staff) Mode of arrival: EMS Limitations: altered mental status History of Present Illness HPI Narrative: 79-year-old female sent over by EMS for evaluation of change in her mental status. According to report at baseline patient is alert and oriented and fairly high functioning. Unsure the exact onset of the symptoms. But it was sometime late morning according to the staff from the care facility. They've also noticed decreased urine output. Patient arrived by EMS. She reports pain however she states this is not new. She is unsure exactly why she is here. She stated that it was because they could get her pain under control. She denies chest pain or shortness of breath. No abdominal pain. Related Data Home Medications Medication Instructions Recorded Confirmed multivitamin [Multiple Vitamins] 1 tab PO QDAY #0 05/12/17 10/21/19 propranolol 160 mg PO QAM #0 01/14/18 10/21/19 sertraline 100 mg PO DAILY 03/30/18 10/21/19 acetaminophen 650 mg PO Q8H 01/25/19 10/21/19 cyanocobalamin (vitamin B-12) 1,000 mcg PO DAILY 01/25/19 10/21/19 dexamethasone 20 mg PO QWEEK 06/29/19 10/21/19 diclofenac sodium 1 g TOPICAL BID 06/29/19 10/21/19 levothyroxine [Synthroid] 150 mcg PO DAILY 06/29/19 10/21/19 ondansetron 4 mg PO TID PRN 06/29/19 10/21/19 tizanidine 2 mg PO Q6H PRN 06/29/19 10/21/19 warfarin See Rx Instructions .ROUTE .COMPLEX 06/29/19 10/21/19 Lactobacillus acidophilus 10 mg PO DAILY 10/21/19 10/21/19 [Acidophilus] acyclovir 800 mg PO QID 10/21/19 10/21/19 gabapentin 300 mg PO TID 10/21/19 10/21/19 guaifenesin [Tussin Expectorant] 200 mg PO Q6HR PRN 10/21/19 10/21/19 ipratropium bromide 1 spray INTRANASAL BID 10/21/19 10/21/19 melatonin 6 mg PO BEDTIME 10/21/19 10/21/19 omeprazole 20 mg PO DAILY 10/21/19 10/21/19 oxycodone-acetaminophen [Percocet] 2 tab PO Q6H PRN 10/21/19 10/21/19 polyvinyl alcohol 1 drp OPHTHALMIC (EYE) Q4HR PRN 10/21/19 10/21/19 warfarin See Rx Instructions .ROUTE .COMPLEX 10/21/19 10/21/19 Previous Rx's Medication Instructions Recorded guaifenesin [Mucus Relief ER] 600 mg PO Q12HR PRN #15 tab 09/10/19 Allergies Allergy/AdvReac Type Severity Reaction Status Date / Time morphine Allergy Severe STROKE Verified 06/29/19 13:07 LIKE SYMPTOMS levofloxacin Allergy Intermediate HIVES Verified 06/29/19 13:07 adhesive [ADHESIVE] Allergy Mild BLISTERS Verified 06/29/19 13:07 celecoxib Allergy Mild RASH, Verified 06/29/19 13:07 SMALL BLISTERS, NAUSEA Penicillins Allergy Mild RASH Verified 06/29/19 13:07 phenazopyridine Allergy Mild VOMITING Verified 06/29/19 13:07 [From PYRIDIUM] Sulfa (Sulfonamide Allergy Mild BLISTERS Verified 06/29/19 13:07 Antibiotics) lactose [LACTOSE] Allergy Unknown Verified 06/29/19 13:07 Review of Systems Review of Systems Narrative: Somewhat limited secondary to altered mental status ROS Unobtainable: Unobtainable due to mental status/LOC Constitutional Constitutional: Denies fever(s) Cardiovascular Cardiovascular: Denies chest pain and Denies dyspnea Respiratory Respiratory: Denies dyspnea Gastrointestinal Gastrointestinal: Denies abdominal pain Genitourinary Comments: Decreased urine output Musculoskeletal Comments: ?Pain all over ? Integumentary/Breasts Skin/Breast: Denies rash Neurologic Neurologic: Reports behavioral changes Comments: Altered mental status Psychiatric Psychiatric: Reports behavioral changes Hematologic/Lymphatic Comments: On Coumadin Patient History Medical History Acute urinary retention (Acute) ATN (acute tubular necrosis) (Acute) Depression (Acute) History of UTI (Acute) Hypertension (Acute) Inpatient management required (Acute) Multiple myeloma (Chronic) Multiple myeloma (Acute) Nausea (Acute) Neuropathy (Acute) Pulmonary embolus (Acute) Renal cell carcinoma (Acute) UTI (urinary tract infection) due to Enterococcus (Acute) Social History household members: caregiver and none Smoking Status: Never smoker alcohol intake: current Smoking Status: Never smoker alcohol intake frequency: holidays/special occasions only Substance Use Type: does not use Exam Initial Vital Signs Initial Vital Signs: Vital Signs Temperature 98.5 F 10/21/19 14:45 Pulse Rate 85 10/21/19 14:45 Respiratory Rate 24 10/21/19 14:45 Blood Pressure 92/71 10/21/19 14:45 Pulse Oximetry 100 10/21/19 14:45 Const General: cooperative and comfortable Orientation: alert, awake, oriented to person, oriented to place, not oriented to time and confused HENMT Head: normal to inspection and normocephalic Eyes Pupils: pupil size bilaterally 2 Resp Effort & Inspection: normal respiratory effort Auscultation: clear to auscultation bilaterally Cardio Rate: regular rate Rhythm: regular rhythm GI Inspection: non-distended Palpation: soft and No firm Skin Lesions: no lesions Rashes: no rashes Neuro General: awake Cranial Nerves: CN's II-XI intact bilaterally Cognition: abnormal cognition (Confused) Speech: speech normal Motor: other (3/5 bilateral upper extremities, 2/5 bilateral lower extremities) Extrem General: capillary refill normal and edema (2+ bilateral lower) Psych Appearance: grossly normal and well kempt Course Orders Ordered: ED Orders 10/21/19 12:05 Influenza A & B (PCR) Stat 10/21/19 15:01 CT head/brain wo con Stat EKG-12 Lead Stat 10/21/19 15:02 Acetaminophen Stat Ammonia (NH3) Stat Complete Blood Count AUTO DIFF Stat Comprehensive Metabolic Panel Stat Ethanol (ETOH) Stat Lipase Stat Partial Thromboplastin Time Stat Prothrombin Time INR Stat Thyroid Stimulating Hormone Stat Troponin I Stat 10/21/19 15:12 Urinalysis and Microscopic Stat Sodium Chloride (Normal Saline 0.9%) 1,000 mls @ 125 mls/hr IV CONT ANGELES Last Admin: 10/21/19 15:03 Dose: 125 mls/hr Documented by: KBROTEM Discontinued Medications Sodium Chloride (Normal Saline 0.9%) 1,000 mls @ 500 mls/hr IV BOLUS ONE Stop: 10/21/19 17:09 Last Infusion: 10/21/19 17:25 Dose: 0 mls/hr Documented by: Admin: 10/21/19 15:30 Dose: 500 mls/hr Documented by: MORENITA Vital Signs Vital signs: Vital Signs - 8 hr 10/21/19 14:45 10/21/19 14:50 10/21/19 14:55 Temperature 98.5 F Pulse Rate 85 85 85 Respiratory Rate 24 23 19 Blood Pressure 92/71 Blood Pressure [Left Arm] 92/71 93/48 L Pulse Oximetry 100 100 100 10/21/19 15:00 10/21/19 15:20 10/21/19 15:25 Temperature Pulse Rate 86 85 85 Respiratory Rate 19 21 Blood Pressure Blood Pressure [Left Arm] 113/55 L 103/56 L 85/50 L Pulse Oximetry 100 98 10/21/19 15:30 10/21/19 15:35 10/21/19 16:00 Temperature Pulse Rate 85 85 85 Respiratory Rate 20 19 Blood Pressure Blood Pressure [Left Arm] 98/71 98/71 105/58 L Pulse Oximetry 98 98 99 10/21/19 16:30 10/21/19 17:00 10/21/19 17:30 Temperature Pulse Rate 86 90 91 H Respiratory Rate 18 18 17 Blood Pressure Blood Pressure [Left Arm] 97/75 100/62 103/57 L Pulse Oximetry 95 100 95 10/21/19 17:45 Temperature Pulse Rate 89 Respiratory Rate 18 Blood Pressure Blood Pressure [Left Arm] 97/60 Pulse Oximetry 98 MDM - Neuro Symptoms/Deficit Medical Records Attestation: I reviewed the patient's medical records. Lab Data Attestation: I reviewed the patient's lab results. Result diagrams: 10/21/19 15:02 10/21/19 15:02 Labs: Lab Results 10/21/19 10/21/19 10/21/19 Range/Units 12:05 15:02 15:02 WBC 8.1 (4.5-11.0) X10^3/uL RBC 2.89 L (4.0-5.2) X10^6/uL Hgb 8.6 L (12.0-16.0) g/dL Hct 26.0 L (36-46) % MCV 89.9 (80-100) fL MCH 29.8 (26-34) PG MCHC 33.1 (30-36) % RDW 16.1 H (11.6-14.8) % Plt Count 149 L (150-400) X10^3/uL Neut % (Auto) Not Reportable Lymph % (Auto) Not Reportable [place] % (Auto) Not Reportable Eos % (Auto) Not Reportable Baso % (Auto) Not Reportable Lymph # (Auto) Not Reportable [place] # (Auto) Not Reportable Baso # (Auto) Not Reportable Total Counted 100 Seg Neutrophils % 81.0 H (38-70) % Lymphocytes % (Manual) 3.0 L (25-45) % Monocytes % (Manual) 16.0 H (2-11) % Neutrophils # (Manual) 6561 H (9220-2313) /uL Nucleated RBCs 1 H ( - 0) #/Diff RBC Morphology See below Hypochromasia 2+ H Poikilocytosis 1+ H Anisocytosis 2+ H PT (10.1-12.7) SECONDS INR (0.9-1.3) APTT (26.4-36.2) SECONDS Sodium 135 L (137-145) mmol/L Potassium 4.7 (3.4-5.1) mmol/L Chloride 102 (98-107) mmol/L Carbon Dioxide 23 (22-32) mmol/L BUN 50 H (7-17) mg/dL Creatinine 1.60 H (0.52-1.04) mg/dL Estimated GFR 30.9 L (>60) mL/min BUN/Creatinine Ratio 31.3 H (6-22) Glucose 183 H (80-110) mg/dL Calcium 7.3 L (8.4-10.2) mg/dL Total Bilirubin 0.6 (0.2-1.3) mg/dL AST 17 (14-36) IU/L ALT 12 (<35) IU/L Alkaline Phosphatase 123 (38-126) U/L Ammonia (9-30) umol/L Troponin I (0.01-0.034) ng/mL Total Protein 5.8 L (6.3-8.2) g/dL Albumin 3.0 L (3.5-5.0) g/dL Globulin 2.8 (1.7-4.1) g/dL Albumin/Globulin Ratio 1.1 (1.0-2.8) Lipase 38 (23-300) U/L TSH (0.47-4.68) uIU/mL Urine Color Urine Appearance Urine pH (4.5-8.0) Ur Specific [place] (1.000-1.035) Urine Protein (Negative) Urine Glucose (UA) (Negative) g/dL Urine Ketones (NEGATIVE) Urine Occult Blood (Negative) Urine Nitrate (Negative) Urine Bilirubin (NEGATIVE) Urine Urobilinogen (0.2) E.U./dL Ur Leukocyte Esterase (NEGATIVE) Urine RBC (0-5/HPF) Urine WBC (0-5/HPF) Ur Renal Epithelial Cell (0-1/HPF) Amorphous Sediment Urine Bacteria (None) Ur Culture Indicated? Acetaminophen (10-30) ug/mL Ethyl Alcohol < 10 ( - 10) mg/dL Influenza A (RT-PCR) Flu a negative (NEGATIVE) Influenza B (RT-PCR) Flu b negative (NEGATIVE) 10/21/19 10/21/19 10/21/19 Range/Units 15:02 15:02 15:02 WBC (4.5-11.0) X10^3/uL RBC (4.0-5.2) X10^6/uL Hgb (12.0-16.0) g/dL Hct (36-46) % MCV (80-100) fL MCH (26-34) PG MCHC (30-36) % RDW (11.6-14.8) % Plt Count (150-400) X10^3/uL Neut % (Auto) Lymph % (Auto) [place] % (Auto) Eos % (Auto) Baso % (Auto) Lymph # (Auto) [place] # (Auto) Baso # (Auto) Total Counted Seg Neutrophils % (38-70) % Lymphocytes % (Manual) (25-45) % Monocytes % (Manual) (2-11) % Neutrophils # (Manual) (6322-0911) /uL Nucleated RBCs ( - 0) #/Diff RBC Morphology Hypochromasia Poikilocytosis Anisocytosis PT 94.1 H (10.1-12.7) SECONDS INR 7.7 H* (0.9-1.3) APTT 45 H D (26.4-36.2) SECONDS Sodium (137-145) mmol/L Potassium (3.4-5.1) mmol/L Chloride (98-107) mmol/L Carbon Dioxide (22-32) mmol/L BUN (7-17) mg/dL Creatinine (0.52-1.04) mg/dL Estimated GFR (>60) mL/min BUN/Creatinine Ratio (6-22) Glucose (80-110) mg/dL Calcium (8.4-10.2) mg/dL Total Bilirubin (0.2-1.3) mg/dL AST (14-36) IU/L ALT (<35) IU/L Alkaline Phosphatase (38-126) U/L Ammonia < 9.0 L (9-30) umol/L Troponin I < 0.012 (0.01-0.034) ng/mL Total Protein (6.3-8.2) g/dL Albumin (3.5-5.0) g/dL Globulin (1.7-4.1) g/dL Albumin/Globulin Ratio (1.0-2.8) Lipase (23-300) U/L TSH (0.47-4.68) uIU/mL Urine Color Urine Appearance Urine pH (4.5-8.0) Ur Specific [place] (1.000-1.035) Urine Protein (Negative) Urine Glucose (UA) (Negative) g/dL Urine Ketones (NEGATIVE) Urine Occult Blood (Negative) Urine Nitrate (Negative) Urine Bilirubin (NEGATIVE) Urine Urobilinogen (0.2) E.U./dL Ur Leukocyte Esterase (NEGATIVE) Urine RBC (0-5/HPF) Urine WBC (0-5/HPF) Ur Renal Epithelial Cell (0-1/HPF) Amorphous Sediment Urine Bacteria (None) Ur Culture Indicated? Acetaminophen < 10 L (10-30) ug/mL Ethyl Alcohol ( - 10) mg/dL Influenza A (RT-PCR) (NEGATIVE) Influenza B (RT-PCR) (NEGATIVE) 10/21/19 10/21/19 Range/Units 15:02 15:12 WBC (4.5-11.0) X10^3/uL RBC (4.0-5.2) X10^6/uL Hgb (12.0-16.0) g/dL Hct (36-46) % MCV (80-100) fL MCH (26-34) PG MCHC (30-36) % RDW (11.6-14.8) % Plt Count (150-400) X10^3/uL Neut % (Auto) Lymph % (Auto) [place] % (Auto) Eos % (Auto) Baso % (Auto) Lymph # (Auto) [place] # (Auto) Baso # (Auto) Total Counted Seg Neutrophils % (38-70) % Lymphocytes % (Manual) (25-45) % Monocytes % (Manual) (2-11) % Neutrophils # (Manual) (2981-0078) /uL Nucleated RBCs ( - 0) #/Diff RBC Morphology Hypochromasia Poikilocytosis Anisocytosis PT (10.1-12.7) SECONDS INR (0.9-1.3) APTT (26.4-36.2) SECONDS Sodium (137-145) mmol/L Potassium (3.4-5.1) mmol/L Chloride (98-107) mmol/L Carbon Dioxide (22-32) mmol/L BUN (7-17) mg/dL Creatinine (0.52-1.04) mg/dL Estimated GFR (>60) mL/min BUN/Creatinine Ratio (6-22) Glucose (80-110) mg/dL Calcium (8.4-10.2) mg/dL Total Bilirubin (0.2-1.3) mg/dL AST (14-36) IU/L ALT (<35) IU/L Alkaline Phosphatase (38-126) U/L Ammonia (9-30) umol/L Troponin I (0.01-0.034) ng/mL Total Protein (6.3-8.2) g/dL Albumin (3.5-5.0) g/dL Globulin (1.7-4.1) g/dL Albumin/Globulin Ratio (1.0-2.8) Lipase (23-300) U/L TSH 0.90 (0.47-4.68) uIU/mL Urine Color Yellow Urine Appearance Sl cloudy Urine pH 5.0 (4.5-8.0) Ur Specific [place] 1.010 (1.000-1.035) Urine Protein 1+ H (Negative) Urine Glucose (UA) Trace H (Negative) g/dL Urine Ketones Negative (NEGATIVE) Urine Occult Blood Negative (Negative) Urine Nitrate Negative (Negative) Urine Bilirubin Negative (NEGATIVE) Urine Urobilinogen 0.2 (0.2) E.U./dL Ur Leukocyte Esterase Negative (NEGATIVE) Urine RBC None seen (0-5/HPF) Urine WBC None seen (0-5/HPF) Ur Renal Epithelial Cell 1-5/hpf H (0-1/HPF) Amorphous Sediment 3+ Urine Bacteria None seen (None) Ur Culture Indicated? Cult not indicated Acetaminophen (10-30) ug/mL Ethyl Alcohol ( - 10) mg/dL Influenza A (RT-PCR) (NEGATIVE) Influenza B (RT-PCR) (NEGATIVE) Imaging Data CT scan - head: Radiologist's Impression: [address] [address] [address] Scan Report Signed Patient: Lorraine Parra LMR#: [id number] : 8Acct:[id number] Age/Sex: 79 / FDate of Service: 10/21/19 Loc: ED Accession Number: [id number] Procedure: CT head/brain wo con Ordering Provider: Ray Wheeler D.O. PROCEDURE: CT HEAD/BRAIN WO CON INDICATIONS: ALTERED MENTAL STATUS TECHNIQUE: Noncontrast 4.5 mm thick angled axial sections acquired from the foramen magnum to the vertex, with coronal and sagittal reformats. For radiation dose reduction, the following was used: automated exposure control, adjustment of mA and/or kV according to patient size. COMPARISON: [facility], MR, BRAIN W&WO CONTRAST, 12/30/2017, 9:54. [facility], CT, HEAD WITHOUT CONTRAST, 10/08/2014, 11:36. [facility], CT, HEAD WITHOUT CONTRAST, 04/19/2017, 10:43. [facility], CT, HEAD WITHOUT CONTRAST, 05/12/2017, 17:33. [facility], CT, HEAD WITHOUT CONTRAST, 09/09/2017, 12:22. [facility], CT, HEAD WITHOUT CONTRAST, 01/14/2018, 15:06. FINDINGS: Image quality: Excellent. CSF spaces: Basal cisterns are patent. No extra-axial fluid collections. The ventricles are symmetric in size and shape. Brain: No intracranial bleeds or masses. There is cerebral volume loss for a ge, with resultant ventricular and sulcal prominence. There are periventricular and deep white matter chronic small vessel ischemic changes. There is intracranial internal carotid artery atherosclerosis. Skull and face: Stable lytic calvarial lesions are seen, which are not significantly changed over time. Sinuses: Focal mucosal thickening is seen involving the left sphenoid sinuses and left maxillary sinus No abnormal fluid is seen within the mastoid air cells. IMPRESSION: No acute intracranial process is seen. Left-sided paranasal sinus disease incidentally noted. Stable lytic lesions are noted of the calvarium. These are most likely benign, given their stability over time. Dictated by: Roney Tapia M.D. on 10/21/2019 at 14:34 Approved by: Roney Tapia M.D. on 10/21/2019 at 14:3 ECG Data Attestation: I personally reviewed and interpreted this ECG as follows: Prior ECG tracings: not available for review Interpretation: Sinus rhythm Ventricular rate 84 Left axis deviation Right bundle-branch block No ST T wave changes MDM Narrative Medical decision making narrative: Patient with 100 cc of urine in her bladder. A Lehman was placed. There's no signs of infection. Head CT is unremarkable. Creatinine at baseline. H&H at baseline. Patient was alert and oriented x3 on my exam. She was clinically dry so she was given fluids. INR is significantly elevated without any signs of acute bleeding. No indication for acute reversal. I do have some concern about overdosing on her pain medication. I did discuss the case with the FINANCIAL EXAMINER who is on-call for the patient's primary provider. Patient was asking to go back to the nursing facility. We will leave the Lehman in place. Instructions given to hold on the Coumadin until restarted by the primary provider. Patient was given return precautions. Discharge Plan Departure Patient Disposition: Home Clinical Impression: Acute urinary retention, Supratherapeutic INR Instructions: How to Care for Your Lehman Catheter -- Female, DI for Urinary Retention in Women Activity Restrictions/Additional Instructions: Recommend that the Lehman catheter stays in place until she is evaluated by the primary providers at the nursing facility. They will make decisions about when the catheter can be removed. I also recommend that her Coumadin/warfarin be held until it is restarted again by her primary providers at the nursing facility. I also highly recommend that her pain medication consumption be evaluated to see if potentially she is being overmedicated. She can return to the emergency department at any point for new or worsening symptoms Prescriptions: No Action multivitamin [Multiple Vitamins] 1 EACH tablet 1 tab PO QDAY Qty: 0 RF: 0 propranolol 80 MG tablet 160 mg PO QAM Qty: 0 RF: 0 sertraline 100 mg Tablet 100 mg PO DAILY RF: 0 acetaminophen 325 mg Tablet 650 mg PO Q8H RF: 0 cyanocobalamin (vitamin B-12) 1,000 mcg Tablet 1,000 mcg PO DAILY RF: 0 warfarin 3 mg tablet See Rx Instructions .ROUTE .COMPLEX RF: 0 levothyroxine [Synthroid] 150 mcg tablet 150 mcg PO DAILY RF: 0 ondansetron 4 mg tablet,disintegrating 4 mg PO TID PRN (Reason: Nausea And Vomiting) RF: 0 diclofenac sodium 1 % gel 1 g TOPICAL BID RF: 0 dexamethasone 4 mg tablet 20 mg PO QWEEK RF: 0 tizanidine 2 mg tablet 2 mg PO Q6H PRN (Reason: Muscle Spasm) RF: 0 guaifenesin [Mucus Relief ER] 600 mg Tablet Extended Release 12hr 600 mg PO Q12HR PRN (Reason: Cough) Qty: 15 RF: 0 polyvinyl alcohol 1.4 % Drops 1 drp OPHTHALMIC (EYE) Q4HR PRN (Reason: Dry Eyes) RF: 0 melatonin 3 mg Tablet 6 mg PO BEDTIME RF: 0 guaifenesin [Tussin Expectorant] 100 mg/5 mL Liquid 200 mg PO Q6HR PRN (Reason: Cough) RF: 0 acyclovir 800 mg tablet 800 mg PO QID RF: 0 warfarin 2 mg Tablet See Rx Instructions .ROUTE .COMPLEX RF: 0 gabapentin 300 mg capsule 300 mg PO TID RF: 0 omeprazole 20 mg Capsule,Delayed Release(Dr/Ec) 20 mg PO DAILY RF: 0 Lactobacillus acidophilus [Acidophilus] Capsule 10 mg PO DAILY RF: 0 ipratropium bromide 42 mcg (0.06 %) spray,non-aerosol 1 spray INTRANASAL BID RF: 0 oxycodone-acetaminophen [Percocet] 10-325 mg tablet 2 tab PO Q6H PRN (Reason: Pain (Scale Score 7-10)) RF: 0
--- NOTE | 2019-10-21 15:01 | DI.CT.S_ITS ---
PROCEDURE: CT HEAD/BRAIN WO CON INDICATIONS: ALTERED MENTAL STATUS TECHNIQUE: Noncontrast 4.5 mm thick angled axial sections acquired from the foramen magnum to the vertex, with coronal and sagittal reformats. For radiation dose reduction, the following was used: automated exposure control, adjustment of mA and/or kV according to patient size. COMPARISON: [facility], MR, BRAIN W&WO CONTRAST, 12/30/2017, 9:54. [facility], CT, HEAD WITHOUT CONTRAST, 10/08/2014, 11:36. [facility], CT, HEAD WITHOUT CONTRAST, 04/19/2017, 10:43. [facility], CT, HEAD WITHOUT CONTRAST, 05/12/2017, 17:33. [facility], CT, HEAD WITHOUT CONTRAST, 09/09/2017, 12:22. [facility], CT, HEAD WITHOUT CONTRAST, 01/14/2018, 15:06. FINDINGS: Image quality: Excellent. CSF spaces: Basal cisterns are patent. No extra-axial fluid collections. The ventricles are symmetric in size and shape. Brain: No intracranial bleeds or masses. There is cerebral volume loss for age, with resultant ventricular and sulcal prominence. There are periventricular and deep white matter chronic small vessel ischemic changes. There is intracranial internal carotid artery atherosclerosis. Skull and face: Stable lytic calvarial lesions are seen, which are not significantly changed over time. Sinuses: Focal mucosal thickening is seen involving the left sphenoid sinuses and left maxillary sinus No abnormal fluid is seen within the mastoid air cells. IMPRESSION: No acute intracranial process is seen. Left-sided paranasal sinus disease incidentally noted. Stable lytic lesions are noted of the calvarium. These are most likely benign, given their stability over time. Dictated by: Roney Tapia M.D. on 10/21/2019 at 14:34 Approved by: Roney Tapia M.D. on 10/21/2019 at 14:37
[2019-10-21] MEDS: SODIUM CHLORIDE 0.9% 1,000 ML 125 ML IV (15:03)
--- NOTE | 2019-10-21 15:19 | PC.NURSE ---
Sent from [facility] for change in mental status. Usually a/o x 4. Since this am has been decreased mental status and confused. Arrived w/ confusion to time, place but reoriented quickly. Confused to year. Knew who grandson was. H/O metastatic cancer w/ bone mets.
[2019-10-21 15:20] LABS: Acetaminophen < 10 ug/mL (10-30); PTT Partial Thromboplastin Tim 45 SECONDS (26.4-36.2)
[2019-10-21 15:21] LABS: Bacteria Urine None Seen; RBC Urine None Seen (0-5/HPF); WBC Urine None Seen (0-5/HPF)
[2019-10-21 15:22] LABS: Alanine Aminotransferase 12 IU/L (<35); Albumin Globulin Ratio 1.1 (1.0-2.8); Alkaline Phosphatase 123 U/L (38-126); Ammonia (NH3) < 9.0 umol/L (9-30); Aspartate Aminotransferase 17 IU/L (14-36); BUN Creatinine Ratio 31.3 (6-22); Bilirubin Total 0.6 mg/dL (0.2-1.3); Blood Urea Nitrogen 50 mg/dL (7-17); Calcium 7.3 mg/dL (8.4-10.2); Carbon Dioxide 23 mmol/L (22-32); Chloride 102 mmol/L (98-107); Estimated Glomerular Filt Rate 30.9 mL/min (>60); Ethanol (ETOH) < 10 mg/dL; Globulin 2.8 g/dL (1.7-4.1); Glucose 183 mg/dL (80-110); HEMOLYSIS < 15 (0-50); Lipase 38 U/L (23-300); Potassium 4.7 mmol/L (3.4-5.1); Sodium 135 mmol/L (137-145); Total Protein 5.8 g/dL (6.3-8.2)
[2019-10-21] MEDS: SODIUM CHLORIDE 0.9% 1,000 ML 500 ML IV (15:30)
[2019-10-21 15:33] LABS: Troponin I < 0.012 ng/mL (0.01-0.034)
[2019-10-21 15:36] LABS: Appearance Urine UA SL CLOUDY; Bilirubin Urine UA NEGATIVE (NEGATIVE); Color Urine UA YELLOW; Glucose Urine UA TRACE g/dL (Negative); Ketones Urine UA NEGATIVE (NEGATIVE); Leukocyte Esterase Urine UA NEGATIVE (NEGATIVE); Nitrite Urine UA NEGATIVE (Negative); Occult Blood Urine UA NEGATIVE (Negative); Protein Urine UA 1+ (Negative); Urobilinogen Urine UA 0.2 E.U./dL (0.2)
[2019-10-21 15:49] LABS: Renal Epithelial Cells Urine 1-5/HPF (0-1/HPF)
[2019-10-21 15:50] LABS: Amorphous Sediment Urine 3+; Culture Indicated Urine Cult Not Indicated
[2019-10-21 15:54] LABS: Influenza A - CEPHEID Flu A NEGATIVE (NEGATIVE); Influenza B - CEPHEID Flu B NEGATIVE (NEGATIVE)
[2019-10-21 16:02] LABS: INR 7.7 (0.9-1.3); Prothrombin Time 94.1 SECONDS (10.1-12.7)
[2019-10-21 16:04] LABS: Add Manual Diff / Slide Review YES; Hemoglobin 8.6 g/dL (12.0-16.0); Mean Corpuscular HGB Conc 33.1 % (30-36); Mean Corpuscular Hemoglobin 29.8 PG (26-34); Mean Corpuscular Volume 89.9 fL (80-100); Platelet Count 149 X10^3/uL (150-400); Red Blood Cell Count 2.89 X10^6/uL (4.0-5.2); Red Cell Distribution Width 16.1 % (11.6-14.8); White Blood Cell Count 8.1 X10^3/uL (4.5-11.0)
[2019-10-21 17:25] LABS: Anisocytosis 2+; Hypochromasia 2+; Neutrophils Absolute Manual 6561 /uL (3000-5900); Nucleated Red Blood Cells 1 #/Diff; Total Cells Counted 100
[2019-10-21 17:26] LABS: Poikilocytosis 1+
== END 2019-10-21 18:59 | disposition home or self-care (01) ==
PROVIDERS: Emergency Provider Emergency Medicine
DX: R41.82 Altered mental status, unspecified (principal); R33.9 Retention of urine, unspecified; D68.8 Other specified coagulation defects; I10 Essential (primary) hypertension
CPT/HCPCS: 36415; 70450; 80053; 80320; 80329; 81001; 82140; 83690; 84443; 84484; 85025; 85610; 85730; 87502; 93005; 96360; 96361; 99285; G0480; J1642

== ENCOUNTER → 2019-10-22 11:43 | Outpatient (ROUT) | payer MEDICARE, OTHER, SELFPAY ==
[2019-10-22 12:20] LABS: Influenza A - CEPHEID Flu A NEGATIVE (NEGATIVE); Influenza B - CEPHEID Flu B NEGATIVE (NEGATIVE)
== END ==
PROVIDERS: Visit Provider Internal Medicine
DX: R06.2 Wheezing (principal); R06.02 Shortness of breath; R05 Cough
CPT/HCPCS: 87502

== ENCOUNTER 2019-10-23 06:38 | Inpatient (IN) | payer MEDICARE, OTHER, SELFPAY ==
[2019-10-23] VITALS (42 sets, daily range): BP systolic 64–144; BP diastolic 42–85; PULSE 76–95; RESP 12–32; TEMP 36.4–37.4; O2SAT 92–100; BMI 35.2
[2019-10-23] MEDS: KETAMINE 500 MG/5 ML INJ (06:51)
[2019-10-23] MEDS: ROCURONIUM 50 MG/5 ML INJ 100 MG IV (06:52)
--- NOTE | 2019-10-23 06:58 | ED.GENADULT ---
HPI - General Adult <Nga Vasquez MD - Last Filed: 11/14/19 20:05> General Chief complaint: Shortness of Breath/Dyspnea Stated complaint: Respiratory distress Time Seen by Provider: 10/23/19 07:12 History of Present Illness HPI narrative: 79-year-old woman at alf facility. When staff checked on her this morning they noticed that she was in respiratory distress with oxygen saturations in the 84% range and respiratory rate in the 30% range. Medics were called. Saturations came up to the mid 90s after a nebulized treatment at the nursing facility. She had a DuoNeb EN route to the emergency room. On arrival she is in obvious respiratory distress with shallow ineffective breathing being assisted with CPAP. Significantly altered mental status. After confirming full code status, Decision was made to proceed with immediate intubation. Please see procedure note. Tube was placed without difficulty Patient was in the department on 10/21 with slightly altered mental status at the time Lehman catheter was placed CT scan was unremarkable her Coumadin level was found to be elevated and she return to her living facility. Related Data Home Medications Medication Instructions Recorded Confirmed propranolol 160 mg PO DAILY #0 01/14/18 10/23/19 sertraline 100 mg PO DAILY 03/30/18 10/23/19 acetaminophen 650 mg PO Q8H 01/25/19 10/23/19 levothyroxine [Synthroid] 150 mcg PO DAILY 06/29/19 10/23/19 ondansetron 4 mg PO Q8H PRN 06/29/19 10/23/19 warfarin See Rx Instructions .ROUTE .COMPLEX 06/29/19 10/23/19 acyclovir 800 mg PO DAILYX7 10/21/19 10/23/19 gabapentin 300 mg PO TID 10/21/19 10/23/19 guaifenesin [Tussin Expectorant] 200 mg PO Q6HR PRN 10/21/19 10/23/19 melatonin 6 mg PO BEDTIME 10/21/19 10/23/19 polyvinyl alcohol 1 drp OPHTHALMIC (EYE) Q4HR PRN 10/21/19 10/23/19 warfarin See Rx Instructions .ROUTE .COMPLEX 10/21/19 10/23/19 Previous Rx's Medication Instructions Recorded guaifenesin [Mucus Relief ER] 600 mg PO Q12HR PRN #15 tab 09/10/19 fentanyl 75 mcg TOPICAL Q72H 15 Days each 10/30/19 oxycodone 20 mg PO Q6HR PRN 30 Days tab 10/30/19 vancomycin in 0.9 % sodium chl 1.25 gram IV Q24H 30 Days #7500 ml 10/30/19 Allergies Allergy/AdvReac Type Severity Reaction Status Date / Time morphine Allergy Severe STROKE Verified 06/29/19 13:07 LIKE SYMPTOMS levofloxacin Allergy Intermediate HIVES Verified 06/29/19 13:07 adhesive [ADHESIVE] Allergy Mild BLISTERS Verified 06/29/19 13:07 celecoxib Allergy Mild RASH, Verified 06/29/19 13:07 SMALL BLISTERS, NAUSEA Penicillins Allergy Mild RASH Verified 06/29/19 13:07 phenazopyridine Allergy Mild VOMITING Verified 06/29/19 13:07 [From PYRIDIUM] Sulfa (Sulfonamide Allergy Mild BLISTERS Verified 06/29/19 13:07 Antibiotics) lactose [LACTOSE] Allergy Unknown Verified 06/29/19 13:07 <Sindy Montiel DO - Last Filed: 11/10/19 07:44> Review of Systems ROS Unobtainable: Unobtainable due to medical condition Patient History <Nga Vasquez MD - Last Filed: 11/14/19 20:05> Medical History Acute urinary retention (Acute) ATN (acute tubular necrosis) (Acute) Depression (Acute) History of UTI (Acute) Hypertension (Acute) Inpatient management required (Acute) Multiple myeloma (Chronic) Multiple myeloma (Acute) Nausea (Acute) Neuropathy (Acute) Pulmonary embolus (Acute) Renal cell carcinoma (Acute) UTI (urinary tract infection) due to Enterococcus (Acute) Surgical History History of cholecystectomy (Acute) History of nephrectomy, right (Acute) History of tonsillectomy (Acute) Hx of appendectomy (Acute) Family History Mother No problems noted. Father No problems noted. Social History household members: caregiver Smoking Status: Never smoker alcohol intake: current Smoking Status: Never smoker alcohol intake frequency: holidays/special occasions only Substance Use Type: does not use Exam <Nga Vasquez MD - Last Filed: 11/14/19 20:05> Initial Vital Signs Initial Vital Signs: Vital Signs Pulse Rate 86 10/23/19 06:45 Blood Pressure 106/61 10/23/19 06:45 Pulse Oximetry 97 10/23/19 06:45 <Sindy Montiel DO - Last Filed: 11/10/19 07:44> Initial Vital Signs Initial Vital Signs: Vital Signs Pulse Rate 86 10/23/19 06:45 Blood Pressure 106/61 10/23/19 06:45 Pulse Oximetry 97 10/23/19 06:45 Gen.: Patient intubated sedated on vent HEENT: Head is atraumatic Neck: Neck is supple no JVD Lungs: Coarse breath sounds bilaterally Cardiac: Regular rate rhythm no murmur Abdomen: Soft nontender Lehman catheter in place Extremities: Peripheral pulses intact no gross bony deformities Neurologic: Sedated on vent Procedures <Nga Vasquez MD - Last Filed: 11/14/19 20:05> Intubation Time out performed: Yes sedative: Ketamine Mg Given: 150 paralytic: Rocuronium Mg Given: 100 Laryngoscope: fiber optic video scope Assist Device Used: fiber optic device ET Tube Uncuffed: Yes Tube Secured Depth (cm): 23 Tube Secured Location: teeth Tube Placement Confirmation: Visualized tube passing through cords, Equal breath sounds bilaterally and Confirmation by capnometry Intubation Complications: hypotension Course <Nga Vasquez MD - Last Filed: 11/14/19 20:05> Orders Ordered: Discontinued Medications Acetaminophen (Tylenol) 650 mg PO Q6HR PRN PRN Reason: Fever Last Admin: 10/30/19 08:55 Dose: 650 mg Documented by: Admin: 10/26/19 08:07 Dose: 650 mg Documented by: JAYNA Acyclovir (Zovirax) 800 mg PO DAILYX7 [facility] Acyclovir (Zovirax) 800 mg PO DAILY ANGELES Last Admin: 10/26/19 10:54 Dose: Not Given Documented by: Admin: 10/25/19 08:07 Dose: 800 mg Documented by: Admin: 10/24/19 09:00 Dose: 800 mg Documented by: Admin: 10/23/19 17:16 Dose: 800 mg Documented by: SAWYER Albuterol (Ventolin) 2.5 mg INH Q2H PRN PRN Reason: Shortness Of Breath Albuterol/Ipratropium (Duoneb) 3 ml INH RTQ4HR [facility] Admin: 10/30/19 15:30 Dose: Not Given Documented by: Admin: 10/30/19 11:05 Dose: 3 ml Documented by: Admin: 10/30/19 07:45 Dose: 3 ml Documented by: Admin: 10/30/19 03:14 Dose: 3 ml Documented by: Admin: 10/29/19 23:05 Dose: 3 ml Documented by: Admin: 10/29/19 20:01 Dose: 3 ml Documented by: Admin: 10/29/19 15:03 Dose: 3 ml Documented by: Admin: 10/29/19 11:10 Dose: 3 ml Documented by: Admin: 10/29/19 08:17 Dose: 3 ml Documented by: Admin: 10/29/19 05:03 Dose: Not Given Documented by: Admin: 10/28/19 23:57 Dose: 3 ml Documented by: Admin: 10/28/19 19:41 Dose: 3 ml Documented by: Admin: 10/28/19 16:37 Dose: 3 ml Documented by: Admin: 10/28/19 13:27 Dose: 3 ml Documented by: Admin: 10/28/19 09:10 Dose: 3 ml Documented by: Admin: 10/28/19 03:55 Dose: 3 ml Documented by: Admin: 10/27/19 22:46 Dose: 3 ml Documented by: Admin: 10/27/19 17:49 Dose: 3 ml Documented by: Admin: 10/27/19 14:35 Dose: 3 ml Documented by: Admin: 10/27/19 09:07 Dose: 3 ml Documented by: Admin: 10/27/19 05:18 Dose: 3 ml Documented by: Admin: 10/27/19 02:12 Dose: 3 ml Documented by: Admin: 10/26/19 22:27 Dose: 3 ml Documented by: Admin: 10/26/19 18:10 Dose: 3 ml Documented by: Admin: 10/26/19 15:27 Dose: 3 ml Documented by: Admin: 10/26/19 11:43 Dose: 3 ml Documented by: Admin: 10/26/19 08:35 Dose: 3 ml Documented by: Admin: 10/26/19 03:40 Dose: 3 ml Documented by: Admin: 10/25/19 22:35 Dose: 3 ml Documented by: Admin: 10/25/19 19:13 Dose: 3 ml Documented by: Admin: 10/25/19 15:35 Dose: 3 ml Documented by: Admin: 10/25/19 11:09 Dose: 3 ml Documented by: Admin: 10/25/19 07:52 Dose: 3 ml Documented by: Admin: 10/25/19 03:46 Dose: 3 ml Documented by: Admin: 10/24/19 22:20 Dose: 3 ml Documented by: Admin: 10/24/19 20:03 Dose: 3 ml Documented by: Admin: 10/24/19 16:19 Dose: 3 ml Documented by: Admin: 10/24/19 10:53 Dose: 3 ml Documented by: Admin: 10/24/19 06:07 Dose: 3 ml Documented by: Admin: 10/24/19 01:51 Dose: 3 ml Documented by: Admin: 10/23/19 22:53 Dose: 3 ml Documented by: Admin: 10/23/19 18:23 Dose: 3 ml Documented by: Admin: 10/23/19 14:38 Dose: 3 ml Documented by: Admin: 10/23/19 11:12 Dose: 3 ml Documented by: AUGUSTO Bisacodyl (Dulcolax) 10 mg OH DAILY PRN PRN Reason: Constipation Bupivacaine HCl (Sensorcaine 0.5% (Pf)) 30 ml INJ NOW ONE Stop: 10/26/19 17:54 Last Admin: 10/26/19 17:08 Dose: 20 ml Documented by: KEVIN Dextrose (D50w) 25 gm IV PRN PRN; Protocol PRN Reason: Hypoglycemia Docusate Sodium (Colace) 100 mg PO BID NAGELES Last Admin: 10/26/19 10:47 Dose: Not Given Documented by: Admin: 10/25/19 21:32 Dose: Not Given Documented by: Admin: 10/25/19 08:03 Dose: Not Given Documented by: Admin: 10/24/19 19:52 Dose: Not Given Documented by: Admin: 10/24/19 08:27 Dose: Not Given Documented by: Admin: 10/23/19 20:36 Dose: Not Given Documented by: SAWYER Fentanyl (Sublimaze) 50 mcg IV Q2H PRN PRN Reason: Pain, Severe (7-10) Last Admin: 10/27/19 04:58 Dose: 50 mcg Documented by: Admin: 10/26/19 08:06 Dose: 50 mcg Documented by: Admin: 10/25/19 08:52 Dose: 50 mcg Documented by: Admin: 10/25/19 01:54 Dose: 50 mcg Documented by: Admin: 10/24/19 22:45 Dose: 50 mcg Documented by: Admin: 10/24/19 19:59 Dose: 50 mcg Documented by: Admin: 10/24/19 18:04 Dose: 50 mcg Documented by: Admin: 10/24/19 15:07 Dose: 50 mcg Documented by: Admin: 10/24/19 07:42 Dose: 50 mcg Documented by: Admin: 10/24/19 03:13 Dose: 50 mcg Documented by: Admin: 10/23/19 21:12 Dose: 25 mcg Documented by: Admin: 10/23/19 12:14 Dose: 50 mcg Documented by: AUGUSTO Fentanyl (Sublimaze) 100 mcg IV Q2H PRN PRN Reason: Pain, Severe (7-10) Last Admin: 10/28/19 10:34 Dose: 100 mcg Documented by: Admin: 10/28/19 00:45 Dose: 100 mcg Documented by: Admin: 10/27/19 21:16 Dose: 100 mcg Documented by: Admin: 10/27/19 15:38 Dose: 100 mcg Documented by: Admin: 10/27/19 12:45 Dose: 100 mcg Documented by: Admin: 10/27/19 10:36 Dose: 100 mcg Documented by: Admin: 10/26/19 20:40 Dose: 100 mcg Documented by: Admin: 10/26/19 12:49 Dose: 100 mcg Documented by: Admin: 10/26/19 10:02 Dose: 100 mcg Documented by: Admin: 10/25/19 22:30 Dose: 100 mcg Documented by: Admin: 10/25/19 19:24 Dose: 100 mcg Documented by: Admin: 10/25/19 15:50 Dose: 100 mcg Documented by: SEVERO Fentanyl (Duragesic) 50 mcg TOP Q72H [facility] Last Admin: 10/29/19 14:14 Dose: 50 mcg Documented by: Admin: 10/26/19 16:28 Dose: 50 mcg Documented by: SEVERO Fentanyl (Duragesic) 75 mcg TOP Q72H [facility] Last Admin: 10/30/19 11:23 Dose: 75 mcg Documented by: ALVIN Furosemide (Lasix) 40 mg IV NOW ONE Stop: 10/23/19 08:03 Last Admin: 10/23/19 08:16 Dose: 40 mg Documented by: VIOLETTA Gabapentin (Neurontin) 300 mg PO TID [facility] Last Admin: 10/30/19 08:56 Dose: 300 mg Documented by: Admin: 10/29/19 21:00 Dose: 300 mg Documented by: Admin: 10/29/19 14:13 Dose: 300 mg Documented by: Admin: 10/29/19 09:08 Dose: 300 mg Documented by: Admin: 10/28/19 19:42 Dose: 300 mg Documented by: Admin: 10/28/19 14:08 Dose: 300 mg Documented by: Admin: 10/28/19 08:22 Dose: 300 mg Documented by: Admin: 10/27/19 21:17 Dose: 300 mg Documented by: Admin: 10/27/19 14:24 Dose: 300 mg Documented by: Admin: 10/27/19 10:34 Dose: 300 mg Documented by: Admin: 10/26/19 20:40 Dose: Not Given Documented by: Admin: 10/26/19 16:28 Dose: Not Given Documented by: Admin: 10/26/19 08:07 Dose: 300 mg Documented by: Admin: 10/25/19 21:36 Dose: 300 mg Documented by: Admin: 10/25/19 13:45 Dose: 300 mg Documented by: Admin: 10/25/19 08:07 Dose: 300 mg Documented by: Admin: 10/24/19 19:59 Dose: 300 mg Documented by: Admin: 10/24/19 16:34 Dose: 300 mg Documented by: Admin: 10/24/19 09:00 Dose: 300 mg Documented by: Admin: 10/23/19 21:01 Dose: 300 mg Documented by: Admin: 10/23/19 17:18 Dose: 300 mg Documented by: SAWYER Guaifenesin (Mucinex) 1,200 mg PO Q12HR [facility] Last Admin: 10/25/19 23:43 Dose: Not Given Documented by: Admin: 10/25/19 11:31 Dose: Not Given Documented by: Admin: 10/25/19 01:07 Dose: Not Given Documented by: Admin: 10/24/19 11:05 Dose: Not Given Documented by: Admin: 10/24/19 01:12 Dose: Not Given Documented by: LEISA Hydromorphone HCl (Dilaudid) 1 mg IV Q2HR ANGELES Last Admin: 10/28/19 12:09 Dose: 1 mg Documented by: CROW Hydromorphone HCl (Dilaudid) 1 mg IV Q2HR PRN PRN Reason: Pain, Severe (7-10) Last Admin: 10/30/19 08:59 Dose: 1 mg Documented by: Admin: 10/29/19 23:22 Dose: 1 mg Documented by: Admin: 01/05/20 14:12 Dose: 1 mg Documented by: Admin: 10/29/19 02:23 Dose: 1 mg Documented by: Admin: 10/28/19 23:49 Dose: 1 mg Documented by: Admin: 10/28/19 19:43 Dose: 1 mg Documented by: KATHY Hydromorphone HCl (Dilaudid) 1 mg IV Q2HR PRN PRN Reason: Pain, Severe (7-10) Sodium Chloride (Normal Saline 0.9%) 2,910 mls @ 970 mls/hr 30 ml/kg infuse over 3 hr (2910 ml) IV NOW ONE Stop: 10/23/19 10:07 Last Infusion: 10/23/19 09:59 Dose: 0 mls/hr Documented by: Admin: 10/23/19 07:35 Dose: 970 mls/hr Documented by: VIOLETTA Cefepime HCl 2 gm/ Sodium (Chloride) 100 mls @ 200 mls/hr IV NOW ONE Stop: 10/23/19 07:09 Last Infusion: 10/23/19 09:50 Dose: 0 mls/hr Documented by: Admin: 10/23/19 07:56 Dose: 200 mls/hr Documented by: VIOLETTA Norepinephrine Bitartrate 4 mg (/ Dextrose) 254 mls @ 30.48 mls/hr IV TITRATE ANGELES; Protocol Last Titration: 10/23/19 11:24 Dose: 0 mcg/min, 0 mls/hr Documented by: Titration: 10/23/19 09:05 Dose: 0 mcg/min, 0 mls/hr Documented by: Admin: 10/23/19 07:52 Dose: 8 mcg/min, 30.48 mls/hr Documented by: VIOLETTA Propofol (Propofol) 1,000 mg in 100 mls @ 2.91 mls/hr IV TITRATE ANGELES; Protocol Last Titration: 10/23/19 10:00 Dose: 0 mcg/kg/min, 0 mls/hr Documented by: Titration: 10/23/19 09:55 Dose: 20.62 mcg/kg/min, 12 mls/hr Documented by: Titration: 10/23/19 09:25 Dose: 12.89 mcg/kg/min, 7.5 mls/hr Documented by: Admin: 10/23/19 07:36 Dose: 8.59 mcg/kg/min, 5 mls/hr Documented by: VIOLETTA Cefepime HCl 2 gm/ Sodium (Chloride) 100 mls @ 200 mls/hr IV NOW ONE Stop: 10/23/19 08:03 Last Admin: 10/23/19 08:06 Dose: Not Given Documented by: VIOLETTA Vancomycin HCl/Dextrose (Vancomycin) 1,500 mg in 300 mls @ 200 mls/hr IV NOW ONE Stop: 10/23/19 09:31 Last Infusion: 10/23/19 11:23 Dose: 0 mls/hr Documented by: Infusion: 10/23/19 10:00 Dose: 0 mls/hr Documented by: Admin: 10/23/19 09:19 Dose: 200 mls/hr Documented by: VIOLETTA Phytonadione 10 mg/ Dextrose 51 mls @ 102 mls/hr IV NOW ONE Stop: 10/23/19 08:07 Last Infusion: 10/23/19 09:13 Dose: 0 mls/hr Documented by: Admin: 10/23/19 08:29 Dose: 102 mls/hr Documented by: VIOLETTA Ertapenem 1 gm/ Sodium (Chloride) 100 mls @ 200 mls/hr IV Q24H ANGELES Last Infusion: 10/26/19 12:10 Dose: 0 mls/hr Documented by: Admin: 10/26/19 11:36 Dose: 200 mls/hr Documented by: Infusion: 10/25/19 13:33 Dose: 0 mls/hr Documented by: Admin: 10/25/19 10:06 Dose: 200 mls/hr Documented by: Infusion: 10/24/19 13:09 Dose: 0 mls/hr Documented by: Admin: 10/24/19 10:28 Dose: 200 mls/hr Documented by: Infusion: 10/23/19 11:31 Dose: 0 mls/hr Documented by: Admin: 10/23/19 11:07 Dose: 200 mls/hr Documented by: AUGUSTO Propofol (Propofol) 1,000 mg in 100 mls @ 2.91 mls/hr IV TITRATE ANGELES; Protocol Last Titration: 10/28/19 08:40 Dose: 0 mcg/kg/min, 0 mls/hr Documented by: Admin: 10/28/19 06:28 Dose: 30 mcg/kg/min, 17 mls/hr Documented by: Titration: 10/28/19 06:28 Dose: 30 mcg/kg/min, 17 mls/hr Documented by: Titration: 10/28/19 05:22 Dose: 30 mcg/kg/min, 17 mls/hr Documented by: Admin: 10/28/19 00:45 Dose: 25 mcg/kg/min, 15 mls/hr Documented by: Titration: 10/28/19 00:33 Dose: 25 mcg/kg/min, 15 mls/hr Documented by: Titration: 10/27/19 23:45 Dose: 25 mcg/kg/min, 15 mls/hr Documented by: Admin: 10/27/19 16:24 Dose: 20 mcg/kg/min, 12 mls/hr Documented by: Titration: 10/27/19 16:24 Dose: 20 mcg/kg/min, 12 mls/hr Documented by: Admin: 10/27/19 09:20 Dose: 20 mcg/kg/min, 12 mls/hr Documented by: Titration: 10/27/19 09:20 Dose: 20 mcg/kg/min, 12 mls/hr Documented by: Admin: 10/27/19 02:28 Dose: 20 mcg/kg/min, 12 mls/hr Documented by: Titration: 10/27/19 01:41 Dose: 20 mcg/kg/min, 12 mls/hr Documented by: Titration: 10/27/19 01:00 Dose: 20 mcg/kg/min, 12 mls/hr Documented by: Admin: 10/26/19 18:52 Dose: 25 mcg/kg/min, 15 mls/hr Documented by: Titration: 10/26/19 18:52 Dose: 25 mcg/kg/min, 15 mls/hr Documented by: Titration: 10/26/19 13:00 Dose: 25 mcg/kg/min, 15 mls/hr Documented by: Titration: 10/26/19 12:45 Dose: 20 mcg/kg/min, 12 mls/hr Documented by: Admin: 10/26/19 12:33 Dose: 15 mcg/kg/min, 9 mls/hr Documented by: Titration: 10/26/19 12:33 Dose: 15 mcg/kg/min, 9 mls/hr Documented by: Admin: 10/26/19 08:15 Dose: 15 mcg/kg/min, 9 mls/hr Documented by: Titration: 10/26/19 08:15 Dose: 15 mcg/kg/min, 9 mls/hr Documented by: Titration: 10/26/19 08:00 Dose: 15 mcg/kg/min, 9 mls/hr Documented by: Titration: 10/26/19 07:45 Dose: 0 mcg/kg/min, 0 mls/hr Documented by: Admin: 10/25/19 21:39 Dose: 10 mcg/kg/min, 6 mls/hr Documented by: Titration: 10/25/19 21:39 Dose: 10 mcg/kg/min, 6 mls/hr Documented by: Titration: 10/25/19 12:00 Dose: 10 mcg/kg/min, 6 mls/hr Documented by: Admin: 10/25/19 10:06 Dose: 5 mcg/kg/min, 3 mls/hr Documented by: Titration: 10/25/19 09:29 Dose: 0 mcg/kg/min, 0 mls/hr Documented by: Titration: 10/25/19 08:55 Dose: 0 mcg/kg/min, 0 mls/hr Documented by: Titration: 10/25/19 07:41 Dose: 5 mcg/kg/min, 3 mls/hr Documented by: Admin: 10/25/19 03:06 Dose: 5.15 mcg/kg/min, 3 mls/hr Documented by: Titration: 10/25/19 00:30 Dose: 5 mcg/kg/min, 3 mls/hr Documented by: Titration: 10/24/19 15:00 Dose: 0 mcg/kg/min, 0 mls/hr Documented by: Titration: 10/24/19 14:50 Dose: 10 mcg/kg/min, 6 mls/hr Documented by: Admin: 10/24/19 09:17 Dose: 8.59 mcg/kg/min, 5 mls/hr Documented by: Titration: 10/24/19 09:17 Dose: 8.59 mcg/kg/min, 5 mls/hr Documented by: Titration: 10/24/19 04:25 Dose: 8.59 mcg/kg/min, 5 mls/hr Documented by: Titration: 10/24/19 02:00 Dose: 0 mcg/kg/min, 0 mls/hr Documented by: Titration: 10/24/19 01:20 Dose: 2 mcg/kg/min, 1 mls/hr Documented by: Titration: 10/23/19 21:00 Dose: 5 mcg/kg/min, 3 mls/hr Documented by: Titration: 10/23/19 19:38 Dose: 10 mcg/kg/min, 6 mls/hr Documented by: Titration: 10/23/19 17:30 Dose: 15 mcg/kg/min, 9 mls/hr Documented by: Admin: 10/23/19 17:19 Dose: 20 mcg/kg/min, 12 mls/hr Documented by: Titration: 10/23/19 16:00 Dose: 25 mcg/kg/min, 15 mls/hr Documented by: Titration: 10/23/19 13:30 Dose: 20 mcg/kg/min, 12 mls/hr Documented by: Titration: 10/23/19 12:14 Dose: 5 mcg/kg/min, 3 mls/hr Documented by: Titration: 10/23/19 11:10 Dose: 0 mcg/kg/min, 0 mls/hr Documented by: Admin: 10/23/19 11:06 Dose: 5 mcg/kg/min, 2.91 mls/hr Documented by: TBLANTO Vancomycin HCl (Vancomycin) 1,000 mg in 200 mls @ 200 mls/hr IV Q24H ANGELES Last Infusion: 10/26/19 11:00 Dose: 0 mls/hr Documented by: Admin: 10/26/19 10:01 Dose: 200 mls/hr Documented by: Infusion: 10/25/19 09:53 Dose: 0 mls/hr Documented by: Admin: 10/25/19 08:53 Dose: 200 mls/hr Documented by: Infusion: 10/24/19 10:30 Dose: 0 mls/hr Documented by: Admin: 10/24/19 09:00 Dose: 200 mls/hr Documented by: CROW Sodium Chloride (Normal Saline 0.9%) 500 mls @ 1,000 mls/hr IV BOLUS ONE Stop: 10/23/19 22:22 Last Infusion: 10/23/19 23:00 Dose: 999 mls/hr Documented by: Admin: 10/23/19 22:02 Dose: 1,000 mls/hr Documented by: SAWYER Norepinephrine Bitartrate 4 mg (/ Dextrose) 254 mls @ 19.05 mls/hr IV TITRATE ANGELES; Protocol Last Titration: 10/28/19 08:01 Dose: 0 mcg/min, 0 mls/hr Documented by: Admin: 10/26/19 12:32 Dose: 5 mcg/min, 19.05 mls/hr Documented by: Titration: 10/26/19 12:32 Dose: 5 mcg/min, 19.05 mls/hr Documented by: Titration: 10/26/19 03:15 Dose: 5 mcg/min, 19.05 mls/hr Documented by: Titration: 10/26/19 02:37 Dose: 4 mcg/min, 15.24 mls/hr Documented by: Titration: 10/26/19 01:30 Dose: 2 mcg/min, 7.62 mls/hr Documented by: Titration: 10/25/19 20:12 Dose: 2 mcg/min, 7.62 mls/hr Documented by: Titration: 10/25/19 19:15 Dose: 1 mcg/min, 3.81 mls/hr Documented by: Titration: 10/25/19 09:29 Dose: 0 mcg/min, 0 mls/hr Documented by: Admin: 10/25/19 08:03 Dose: 1 mcg/min, 3.81 mls/hr Documented by: Titration: 10/25/19 08:01 Dose: 0 mcg/min, 0 mls/hr Documented by: Titration: 10/25/19 07:41 Dose: 1 mcg/min, 3.81 mls/hr Documented by: Titration: 10/25/19 02:30 Dose: 2 mcg/min, 7.62 mls/hr Documented by: Titration: 10/24/19 22:49 Dose: 3 mcg/min, 11.43 mls/hr Documented by: Titration: 10/24/19 22:30 Dose: 4 mcg/min, 15.24 mls/hr Documented by: Titration: 10/24/19 22:05 Dose: 2 mcg/min, 7.62 mls/hr Documented by: Titration: 10/24/19 09:30 Dose: 0 mcg/min, 0 mls/hr Documented by: Titration: 10/24/19 09:00 Dose: 1 mcg/min, 3.81 mls/hr Documented by: Admin: 10/24/19 07:45 Dose: 2 mcg/min, 7.62 mls/hr Documented by: Titration: 10/24/19 07:41 Dose: 0 mcg/min, 0 mls/hr Documented by: Titration: 10/24/19 07:40 Dose: 0 mcg/min, 0 mls/hr Documented by: Titration: 10/24/19 06:30 Dose: 2 mcg/min, 7.62 mls/hr Documented by: Titration: 10/24/19 06:05 Dose: 3 mcg/min, 11.43 mls/hr Documented by: Titration: 10/24/19 04:37 Dose: 4 mcg/min, 15.24 mls/hr Documented by: Titration: 10/24/19 02:30 Dose: 2 mcg/min, 7.62 mls/hr Documented by: Admin: 10/24/19 02:28 Dose: 4 mcg/min, 15.24 mls/hr Documented by: LEISA Calcium Gluconate 9.3 meq/ (Sodium Chloride) 70 mls @ 140 mls/hr IV NOW ONE Stop: 10/24/19 05:58 Last Infusion: 10/24/19 07:35 Dose: 0 mls/hr Documented by: Admin: 10/24/19 06:53 Dose: 140 mls/hr Documented by: LEISA Sodium Chloride (Normal Saline 0.9%) 500 mls @ 1,000 mls/hr IV BOLUS ONE Stop: 10/24/19 09:44 Last Infusion: 10/24/19 09:58 Dose: 0 mls/hr Documented by: Admin: 10/24/19 09:15 Dose: 1,000 mls/hr Documented by: CROW Magnesium Sulfate (Magnesium Sulfate) 2 gm in 50 mls @ 25 mls/hr IV NOW ONE Stop: 10/24/19 17:39 Last Infusion: 10/24/19 19:00 Dose: 25 mls/hr Documented by: LEISA Cosigned by: SHARRI Admin: 10/24/19 16:34 Dose: 25 mls/hr Documented by: SAWYER Cosigned by: KATHY Sodium Chloride (Normal Saline 0.9%) 500 mls @ 500 mls/hr IV BOLUS ONE Stop: 10/24/19 22:04 Last Infusion: 10/24/19 23:42 Dose: 500 mls/hr Documented by: Admin: 10/24/19 21:05 Dose: 500 mls/hr Documented by: SAWYER Potassium Chloride 60 meq/ (Sodium Chloride) 530 mls @ 88.333 mls/hr IV NOW ONE Stop: 10/25/19 13:04 Last Admin: 10/25/19 08:03 Dose: 88.333 mls/hr Documented by: CROW Cosigned by: AUGUSTO Calcium Gluconate 9.3 meq/ (Sodium Chloride) 70 mls @ 140 mls/hr IV NOW ONE Stop: 10/25/19 20:45 Last Infusion: 10/25/19 23:21 Dose: 0 mls/hr Documented by: Admin: 10/25/19 21:33 Dose: 140 mls/hr Documented by: SEVERO Vancomycin HCl 1,250 mg/ (Sodium Chloride) 250 mls @ 250 mls/hr IV Q24H [facility] Last Infusion: 10/30/19 08:59 Dose: 0 mls/hr Documented by: Admin: 10/30/19 06:41 Dose: 250 mls/hr Documented by: Infusion: 10/29/19 07:39 Dose: 0 mls/hr Documented by: Admin: 10/29/19 06:18 Dose: 250 mls/hr Documented by: Infusion: 10/28/19 07:41 Dose: 0 mls/hr Documented by: Admin: 10/28/19 06:09 Dose: 250 mls/hr Documented by: Infusion: 10/27/19 07:25 Dose: 0 mls/hr Documented by: Admin: 10/27/19 06:24 Dose: 250 mls/hr Documented by: LEISA Cefepime HCl 2 gm/ Sodium (Chloride) 100 mls @ 200 mls/hr IV Q12H [facility] Last Infusion: 10/30/19 12:22 Dose: 0 mls/hr Documented by: Admin: 10/30/19 11:30 Dose: 200 mls/hr Documented by: Infusion: 10/30/19 01:45 Dose: 0 mls/hr Documented by: Admin: 10/30/19 00:56 Dose: 200 mls/hr Documented by: Infusion: 10/29/19 16:17 Dose: 200 mls/hr Documented by: Admin: 10/29/19 13:24 Dose: 200 mls/hr Documented by: Infusion: 10/29/19 00:42 Dose: 200 mls/hr Documented by: Admin: 10/28/19 23:50 Dose: 200 mls/hr Documented by: Infusion: 10/28/19 18:49 Dose: 0 mls/hr Documented by: Admin: 10/28/19 13:40 Dose: 200 mls/hr Documented by: Infusion: 10/28/19 05:22 Dose: 200 mls/hr Documented by: Infusion: 10/28/19 01:00 Dose: 200 mls/hr Documented by: Admin: 10/28/19 00:44 Dose: 200 mls/hr Documented by: Infusion: 10/27/19 14:47 Dose: 0 mls/hr Documented by: Admin: 10/27/19 12:45 Dose: 200 mls/hr Documented by: Infusion: 10/27/19 01:34 Dose: 200 mls/hr Documented by: Admin: 10/27/19 00:32 Dose: 200 mls/hr Documented by: Infusion: 10/26/19 13:40 Dose: 200 mls/hr Documented by: Admin: 10/26/19 13:05 Dose: 200 mls/hr Documented by: JAYNA Magnesium Sulfate (Magnesium Sulfate) 2 gm in 50 mls @ 25 mls/hr IV NOW ONE Stop: 10/27/19 16:15 Last Infusion: 10/27/19 17:00 Dose: 25 mls/hr Documented by: LEISA Cosigned by: JESSICA Admin: 10/27/19 14:41 Dose: 25 mls/hr Documented by: ERICH Cosigned by: JAYNA Sodium Chloride (Normal Saline 0.9%) 250 mls @ 21 mls/hr IV Q24H PRN PRN Reason: Flush Last Admin: 10/30/19 01:00 Dose: 21 mls/hr Documented by: ALEXANDREA Insulin Aspart (Novolog Flexpen) 0 unit SUBCUT Q6H ANGELES; Protocol Last Admin: 10/25/19 08:30 Dose: 4 unit Documented by: CROW Cosigned by: AUGUSTO Admin: 10/25/19 03:08 Dose: 300 unit Documented by: LEISA Cosigned by: BARBARA Admin: 10/24/19 20:11 Dose: 2 unit Documented by: SAWYER Cosigned by: ALFA Admin: 10/24/19 15:08 Dose: 2 unit Documented by: CROW Cosigned by: SAWYER Admin: 10/24/19 09:11 Dose: 2 unit Documented by: CROW Cosigned by: KHOLM Admin: 10/24/19 03:14 Dose: 1 unit Documented by: LEISA Cosigned by: DANGELO Admin: 10/23/19 21:08 Dose: 2 unit Documented by: SAWYER Cosigned by: ALFA Insulin Aspart (Novolog Flexpen) 0 unit SUBCUT 0600,1200,1800,0000 ANGELES; Protocol Last Admin: 10/26/19 14:42 Dose: Not Given Documented by: Admin: 10/26/19 05:58 Dose: 3 unit Documented by: SHARRI Cosigned by: CHECO Admin: 10/26/19 00:35 Dose: 3 unit Documented by: LIAN Cosigned by: MITCHEL Admin: 10/25/19 18:22 Dose: 4 unit Documented by: SEVERO Cosigned by: LARRY Admin: 10/25/19 13:44 Dose: 4 unit Documented by: CROW Cosigned by: AUGUSTO Insulin Aspart (Novolog Flexpen) 0 unit SUBCUT Q6H ANGELES; Protocol Last Admin: 10/28/19 12:10 Dose: 2 unit Documented by: CROW Cosigned by: AUGUSTO Admin: 10/28/19 06:12 Dose: 2 unit Documented by: LEISA Cosigned by: JESSICA Admin: 10/28/19 00:41 Dose: Not Given Documented by: Admin: 10/27/19 18:42 Dose: Not Given Documented by: Admin: 10/27/19 12:46 Dose: Not Given Documented by: Admin: 10/27/19 06:18 Dose: Not Given Documented by: Admin: 10/27/19 00:10 Dose: Not Given Documented by: Admin: 10/26/19 18:55 Dose: 7 unit Documented by: SEVERO Cosigned by: LARRY Admin: 10/26/19 12:49 Dose: 10 unit Documented by: JAYNA Cosigned by: CHECO Insulin Aspart (Novolog Flexpen) 0 unit SUBCUT ACHS [facility]; Protocol Last Admin: 10/30/19 12:21 Dose: Not Given Documented by: Admin: 10/30/19 08:49 Dose: Not Given Documented by: Admin: 10/29/19 20:59 Dose: Not Given Documented by: Admin: 10/29/19 17:01 Dose: Not Given Documented by: Admin: 10/29/19 12:55 Dose: Not Given Documented by: Admin: 10/29/19 07:39 Dose: Not Given Documented by: Admin: 10/28/19 19:44 Dose: Not Given Documented by: Admin: 10/28/19 17:48 Dose: 2 unit Documented by: CROW Cosigned by: CELE Insulin Glargine (Lantus (Vial)) 10 unit SUBCUT BEDTIME ANGELES Last Admin: 10/25/19 21:35 Dose: 10 unit Documented by: SEVERO Cosigned by: LARRY Insulin Glargine (Lantus (Vial)) 4 unit SUBCUT NOW ONE Stop: 10/26/19 00:44 Last Admin: 10/26/19 00:55 Dose: 4 unit Documented by: SHARRI Cosigned by: LIAN Insulin Glargine (Lantus (Vial)) 14 unit SUBCUT BEDTIME [facility] Insulin Glargine (Lantus (Vial)) 20 unit SUBCUT BEDTIME ANGELES Last Admin: 10/27/19 22:55 Dose: 20 unit Documented by: SEVERO Cosigned by: LARRY Admin: 10/26/19 21:24 Dose: 20 unit Documented by: SEVERO Cosigned by: LARRY Insulin Glargine (Lantus Solostar (Pen)) 20 unit SUBCUT BEDTIME [facility] Last Admin: 10/29/19 20:59 Dose: Not Given Documented by: Admin: 10/28/19 19:56 Dose: 20 unit Documented by: KATHY Cosigned by: JYOTI Levothyroxine Sodium (Synthroid) 150 mcg PO 0600 [facility] Last Admin: 10/30/19 06:41 Dose: 150 mcg Documented by: Admin: 10/29/19 09:08 Dose: 150 mcg Documented by: Admin: 10/28/19 06:10 Dose: 150 mcg Documented by: Admin: 10/27/19 06:25 Dose: 150 mcg Documented by: Admin: 10/26/19 06:13 Dose: 150 mcg Documented by: Admin: 10/25/19 08:07 Dose: 150 mcg Documented by: Admin: 10/24/19 09:01 Dose: 150 mcg Documented by: Admin: 10/24/19 06:38 Dose: Not Given Documented by: LEISA Naloxone HCl (Narcan) 0.2 mg IV Q2MIN PRN PRN Reason: Opiate Reversal Oxycodone HCl (Percolone) 20 mg PO Q6HR PRN PRN Reason: Pain, Severe (7-10) Last Admin: 10/30/19 12:26 Dose: 20 mg Documented by: Admin: 10/30/19 06:44 Dose: 20 mg Documented by: Admin: 10/29/19 21:23 Dose: 20 mg Documented by: Admin: 10/29/19 09:09 Dose: 20 mg Documented by: Admin: 10/29/19 01:29 Dose: 20 mg Documented by: Admin: 10/28/19 19:43 Dose: 20 mg Documented by: Admin: 10/28/19 14:08 Dose: 20 mg Documented by: CROW Pantoprazole Sodium (Protonix) 40 mg IV DAILY [facility] Last Admin: 10/30/19 08:58 Dose: 40 mg Documented by: Admin: 10/29/19 09:08 Dose: 40 mg Documented by: Admin: 10/28/19 08:22 Dose: 40 mg Documented by: Admin: 10/27/19 10:34 Dose: 40 mg Documented by: Admin: 10/26/19 08:07 Dose: 40 mg Documented by: Admin: 10/25/19 08:07 Dose: 40 mg Documented by: Admin: 10/24/19 09:03 Dose: 40 mg Documented by: CROW Potassium Chloride (Potassium Chloride) 40 meq PO NOW ONE Stop: 10/27/19 14:17 Last Admin: 10/27/19 15:37 Dose: 40 meq Documented by: SEVERO Prednisone (Deltasone) 30 mg PO DAILY [facility] Last Admin: 10/30/19 08:56 Dose: Not Given Documented by: Admin: 10/29/19 13:08 Dose: Not Given Documented by: ERICH Propranolol HCl (Inderal La) 160 mg PO DAILY [facility] Last Admin: 10/24/19 09:00 Dose: Not Given Documented by: Admin: 10/23/19 17:17 Dose: Not Given Documented by: SAWYER Rocuronium [place] (Zemuron) 100 mg IV NOW ONE Stop: 10/23/19 07:27 Last Admin: 10/23/19 06:52 Dose: 100 mg Documented by: VIOLETTA Sertraline HCl (Zoloft) 100 mg PO DAILY [facility] Last Admin: 10/30/19 08:56 Dose: 100 mg Documented by: Admin: 10/29/19 09:09 Dose: 100 mg Documented by: Admin: 10/28/19 08:22 Dose: 100 mg Documented by: Admin: 10/27/19 10:33 Dose: 100 mg Documented by: Admin: 10/26/19 08:07 Dose: 100 mg Documented by: Admin: 10/25/19 08:07 Dose: 100 mg Documented by: Admin: 10/24/19 09:00 Dose: 100 mg Documented by: Admin: 10/23/19 17:18 Dose: 100 mg Documented by: SAWYER Sodium Chloride (Normal Saline 0.9% Flush) 10 ml IV PRN PRN PRN Reason: Flush Last Admin: 10/30/19 12:25 Dose: 10 ml Documented by: Admin: 10/30/19 00:57 Dose: 10 ml Documented by: Admin: 10/29/19 23:22 Dose: 10 ml Documented by: ALEXANDREA Sodium Chloride (Normal Saline 0.9% Flush) 10 ml IV BID [facility] Last Admin: 10/30/19 08:59 Dose: 10 ml Documented by: ALVIN Vancomycin HCl (Vancomycin Per Pharmacy) 1 request MIS NOW ONE Stop: 10/23/19 10:00 Last Admin: 10/23/19 10:00 Dose: 1 request Documented by: AUGUSTO Vancomycin HCl (Vancomycin Trough) 1 request [facility] [place] [address] [facility] Stop: 10/26/19 08:31 Last Admin: 10/26/19 10:46 Dose: Not Given Documented by: JAYNA Vancomycin HCl (Vancomycin Trough) 1 request MISC NOW ONE Stop: 10/30/19 05:31 Last Admin: 10/30/19 05:28 Dose: 1 request Documented by: ALEXANDREA Vital Signs Vital signs: Vital Signs - 8 hr 10/23/19 06:45 10/23/19 07:00 10/23/19 07:01 Temperature 99.1 F Pulse Rate 86 81 81 Respiratory Rate 12 32 H Blood Pressure 106/61 Blood Pressure [Left Arm] 106/61 69/44 L Pulse Oximetry 97 99 94 10/23/19 07:11 10/23/19 07:15 10/23/19 07:30 Temperature Pulse Rate 87 87 85 Respiratory Rate 16 18 16 Blood Pressure Blood Pressure [Left Arm] 64/52 L 93/59 L 91/60 Pulse Oximetry 100 100 99 10/23/19 07:45 10/23/19 08:00 10/23/19 08:10 Temperature Pulse Rate 82 81 84 Respiratory Rate 17 18 16 Blood Pressure Blood Pressure [Left Arm] 83/58 L 128/78 Pulse Oximetry 100 100 10/23/19 08:15 10/23/19 08:30 10/23/19 08:45 Temperature Pulse Rate 81 83 85 Respiratory Rate 18 19 21 Blood Pressure Blood Pressure [Left Arm] 118/72 120/71 137/75 Pulse Oximetry 100 100 100 10/23/19 09:00 10/23/19 09:15 Temperature Pulse Rate 83 83 Respiratory Rate 20 16 Blood Pressure Blood Pressure [Left Arm] 125/71 Pulse Oximetry 99 100 <Sindy Montiel DO - Last Filed: 11/10/19 07:44> Orders Ordered: Discontinued Medications Acetaminophen (Tylenol) 650 mg PO Q6HR PRN PRN Reason: Fever Last Admin: 10/30/19 08:55 Dose: 650 mg Documented by: Admin: 10/26/19 08:07 Dose: 650 mg Documented by: JAYNA [facility] 800 mg PO DAILY [facility] Last Admin: 10/26/19 10:54 Dose: Not Given Documented by: Admin: 10/25/19 08:07 Dose: 800 mg Documented by: Admin: 10/24/19 09:00 Dose: 800 mg Documented by: Admin: 10/23/19 17:16 Dose: 800 mg Documented by: SAWYER Albuterol (Ventolin) 2.5 mg INH Q2H PRN PRN Reason: Shortness Of Breath Albuterol/Ipratropium (Duoneb) 3 ml INH RTQ4HR [facility] Admin: 10/30/19 15:30 Dose: Not Given Documented by: Admin: 10/30/19 11:05 Dose: 3 ml Documented by: Admin: 10/30/19 07:45 Dose: 3 ml Documented by: Admin: 10/30/19 03:14 Dose: 3 ml Documented by: Admin: 10/29/19 23:05 Dose: 3 ml Documented by: Admin: 10/29/19 20:01 Dose: 3 ml Documented by: Admin: 10/29/19 15:03 Dose: 3 ml Documented by: Admin: 10/29/19 11:10 Dose: 3 ml Documented by: Admin: 10/29/19 08:17 Dose: 3 ml Documented by: Admin: 10/29/19 05:03 Dose: Not Given Documented by: Admin: 10/28/19 23:57 Dose: 3 ml Documented by: Admin: 10/28/19 19:41 Dose: 3 ml Documented by: Admin: 10/28/19 16:37 Dose: 3 ml Documented by: Admin: 10/28/19 13:27 Dose: 3 ml Documented by: Admin: 10/28/19 09:10 Dose: 3 ml Documented by: Admin: 10/28/19 03:55 Dose: 3 ml Documented by: Admin: 10/27/19 22:46 Dose: 3 ml Documented by: Admin: 10/27/19 17:49 Dose: 3 ml Documented by: Admin: 10/27/19 14:35 Dose: 3 ml Documented by: Admin: 10/27/19 09:07 Dose: 3 ml Documented by: Admin: 10/27/19 05:18 Dose: 3 ml Documented by: Admin: 10/27/19 02:12 Dose: 3 ml Documented by: Admin: 10/26/19 22:27 Dose: 3 ml Documented by: Admin: 10/26/19 18:10 Dose: 3 ml Documented by: Admin: 10/26/19 15:27 Dose: 3 ml Documented by: Admin: 10/26/19 11:43 Dose: 3 ml Documented by: Admin: 10/26/19 08:35 Dose: 3 ml Documented by: Admin: 10/26/19 03:40 Dose: 3 ml Documented by: Admin: 10/25/19 22:35 Dose: 3 ml Documented by: Admin: 10/25/19 19:13 Dose: 3 ml Documented by: Admin: 10/25/19 15:35 Dose: 3 ml Documented by: Admin: 10/25/19 11:09 Dose: 3 ml Documented by: Admin: 10/25/19 07:52 Dose: 3 ml Documented by: Admin: 10/25/19 03:46 Dose: 3 ml Documented by: Admin: 10/24/19 22:20 Dose: 3 ml Documented by: Admin: 10/24/19 20:03 Dose: 3 ml Documented by: Admin: 10/24/19 16:19 Dose: 3 ml Documented by: Admin: 10/24/19 10:53 Dose: 3 ml Documented by: Admin: 10/24/19 06:07 Dose: 3 ml Documented by: Admin: 10/24/19 01:51 Dose: 3 ml Documented by: Admin: 10/23/19 22:53 Dose: 3 ml Documented by: Admin: 10/23/19 18:23 Dose: 3 ml Documented by: Admin: 10/23/19 14:38 Dose: 3 ml Documented by: Admin: 10/23/19 11:12 Dose: 3 ml Documented by: AUGUSTO Bisacodyl (Dulcolax) 10 mg [place] DAILY PRN PRN Reason: Constipation Bupivacaine HCl (Sensorcaine 0.5% (Pf)) 30 ml INJ NOW ONE Stop: 10/26/19 17:54 Last Admin: 10/26/19 17:08 Dose: 20 ml Documented by: KEVIN Dextrose (D50w) 25 gm IV PRN PRN; Protocol PRN Reason: Hypoglycemia Docusate Sodium (Colace) 100 mg PO BID ANGELES Last Admin: 10/26/19 10:47 Dose: Not Given Documented by: Admin: 10/25/19 21:32 Dose: Not Given Documented by: Admin: 10/25/19 08:03 Dose: Not Given Documented by: Admin: 10/24/19 19:52 Dose: Not Given Documented by: Admin: 10/24/19 08:27 Dose: Not Given Documented by: Admin: 10/23/19 20:36 Dose: Not Given Documented by: SAWYER Fentanyl (Sublimaze) 50 mcg IV Q2H PRN PRN Reason: Pain, Severe (7-10) Last Admin: 10/27/19 04:58 Dose: 50 mcg Documented by: Admin: 10/26/19 08:06 Dose: 50 mcg Documented by: Admin: 10/25/19 08:52 Dose: 50 mcg Documented by: Admin: 10/25/19 01:54 Dose: 50 mcg Documented by: Admin: 10/24/19 22:45 Dose: 50 mcg Documented by: Admin: 10/24/19 19:59 Dose: 50 mcg Documented by: Admin: 10/24/19 18:04 Dose: 50 mcg Documented by: Admin: 10/24/19 15:07 Dose: 50 mcg Documented by: Admin: 10/24/19 07:42 Dose: 50 mcg Documented by: Admin: 10/24/19 03:13 Dose: 50 mcg Documented by: Admin: 10/23/19 21:12 Dose: 25 mcg Documented by: Admin: 10/23/19 12:14 Dose: 50 mcg Documented by: AUGUSTO Fentanyl (Sublimaze) 100 mcg IV Q2H PRN PRN Reason: Pain, Severe (7-10) Last Admin: 10/28/19 10:34 Dose: 100 mcg Documented by: Admin: 10/28/19 00:45 Dose: 100 mcg Documented by: Admin: 10/27/19 21:16 Dose: 100 mcg Documented by: Admin: 10/27/19 15:38 Dose: 100 mcg Documented by: Admin: 10/27/19 12:45 Dose: 100 mcg Documented by: Admin: 10/27/19 10:36 Dose: 100 mcg Documented by: Admin: 10/26/19 20:40 Dose: 100 mcg Documented by: Admin: 10/26/19 12:49 Dose: 100 mcg Documented by: Admin: 10/26/19 10:02 Dose: 100 mcg Documented by: Admin: 10/25/19 22:30 Dose: 100 mcg Documented by: Admin: 10/25/19 19:24 Dose: 100 mcg Documented by: Admin: 10/25/19 15:50 Dose: 100 mcg Documented by: SEVERO Fentanyl (Duragesic) 50 mcg TOP Q72H [facility] Last Admin: 10/29/19 14:14 Dose: 50 mcg Documented by: Admin: 10/26/19 16:28 Dose: 50 mcg Documented by: SEVERO Fentanyl (Duragesic) 75 mcg TOP Q72H [facility] Last Admin: 10/30/19 11:23 Dose: 75 mcg Documented by: ALVIN Furosemide (Lasix) 40 mg IV NOW ONE Stop: 10/23/19 08:03 Last Admin: 10/23/19 08:16 Dose: 40 mg Documented by: VIOLETTA Gabapentin (Neurontin) 300 mg PO TID [facility] Last Admin: 10/30/19 08:56 Dose: 300 mg Documented by: Admin: 10/29/19 21:00 Dose: 300 mg Documented by: Admin: 10/29/19 14:13 Dose: 300 mg Documented by: Admin: 10/29/19 09:08 Dose: 300 mg Documented by: Admin: 10/28/19 19:42 Dose: 300 mg Documented by: Admin: 10/28/19 14:08 Dose: 300 mg Documented by: Admin: 10/28/19 08:22 Dose: 300 mg Documented by: Admin: 10/27/19 21:17 Dose: 300 mg Documented by: Admin: 10/27/19 14:24 Dose: 300 mg Documented by: Admin: 10/27/19 10:34 Dose: 300 mg Documented by: Admin: 10/26/19 20:40 Dose: Not Given Documented by: Admin: 10/26/19 16:28 Dose: Not Given Documented by: Admin: 10/26/19 08:07 Dose: 300 mg Documented by: Admin: 10/25/19 21:36 Dose: 300 mg Documented by: Admin: 10/25/19 13:45 Dose: 300 mg Documented by: Admin: 10/25/19 08:07 Dose: 300 mg Documented by: Admin: 10/24/19 19:59 Dose: 300 mg Documented by: Admin: 10/24/19 16:34 Dose: 300 mg Documented by: Admin: 10/24/19 09:00 Dose: 300 mg Documented by: Admin: 10/23/19 21:01 Dose: 300 mg Documented by: Admin: 10/23/19 17:18 Dose: 300 mg Documented by: SAWYER Guaifenesin (Mucinex) 1,200 mg PO Q12HR [facility] Last Admin: 10/25/19 23:43 Dose: Not Given Documented by: Admin: 10/25/19 11:31 Dose: Not Given Documented by: Admin: 10/25/19 01:07 Dose: Not Given Documented by: Admin: 10/24/19 11:05 Dose: Not Given Documented by: Admin: 10/24/19 01:12 Dose: Not Given Documented by: LEISA Hydromorphone HCl (Dilaudid) 1 mg IV Q2HR AGNELES Last Admin: 10/28/19 12:09 Dose: 1 mg Documented by: CROW Hydromorphone HCl (Dilaudid) 1 mg IV Q2HR PRN PRN Reason: Pain, Severe (7-10) Last Admin: 10/30/19 08:59 Dose: 1 mg Documented by: Admin: 10/29/19 23:22 Dose: 1 mg Documented by: Admin: 10/29/19 14:12 Dose: 1 mg Documented by: Admin: 10/29/19 02:23 Dose: 1 mg Documented by: Admin: 10/28/19 23:49 Dose: 1 mg Documented by: Admin: 10/28/19 19:43 Dose: 1 mg Documented by: KATHY Hydromorphone HCl (Dilaudid) 1 mg IV Q2HR PRN PRN Reason: Pain, Severe (7-10) Sodium Chloride (Normal Saline 0.9%) 2,910 mls @ 970 mls/hr 30 ml/kg infuse over 3 hr (2910 ml) IV NOW ONE Stop: 10/23/19 10:07 Last Infusion: 10/23/19 09:59 Dose: 0 mls/hr Documented by: Admin: 10/23/19 07:35 Dose: 970 mls/hr Documented by: VIOLETTA Cefepime HCl 2 gm/ Sodium (Chloride) 100 mls @ 200 mls/hr IV NOW ONE Stop: 10/23/19 07:09 Last Infusion: 10/23/19 09:50 Dose: 0 mls/hr Documented by: Admin: 10/23/19 07:56 Dose: 200 mls/hr Documented by: VIOLETTA Norepinephrine Bitartrate 4 mg (/ Dextrose) 254 mls @ 30.48 mls/hr IV TITRATE ANGELES; Protocol Last Titration: 10/23/19 11:24 Dose: 0 mcg/min, 0 mls/hr Documented by: Titration: 10/23/19 09:05 Dose: 0 mcg/min, 0 mls/hr Documented by: Admin: 10/23/19 07:52 Dose: 8 mcg/min, 30.48 mls/hr Documented by: VIOLETTA Propofol (Propofol) 1,000 mg in 100 mls @ 2.91 mls/hr IV TITRATE ANGELES; Protocol Last Titration: 10/23/19 10:00 Dose: 0 mcg/kg/min, 0 mls/hr Documented by: Titration: 10/23/19 09:55 Dose: 20.62 mcg/kg/min, 12 mls/hr Documented by: Titration: 10/23/19 09:25 Dose: 12.89 mcg/kg/min, 7.5 mls/hr Documented by: Admin: 10/23/19 07:36 Dose: 8.59 mcg/kg/min, 5 mls/hr Documented by: VIOLETTA Cefepime HCl 2 gm/ Sodium (Chloride) 100 mls @ 200 mls/hr IV NOW ONE Stop: 10/23/19 08:03 Last Admin: 10/23/19 08:06 Dose: Not Given Documented by: VIOLETTA Vancomycin HCl/Dextrose (Vancomycin) 1,500 mg in 300 mls @ 200 mls/hr IV NOW ONE Stop: 10/23/19 09:31 Last Infusion: 10/23/19 11:23 Dose: 0 mls/hr Documented by: Infusion: 10/23/19 10:00 Dose: 0 mls/hr Documented by: Admin: 10/23/19 09:19 Dose: 200 mls/hr Documented by: VIOLETTA Phytonadione 10 mg/ Dextrose 51 mls @ 102 mls/hr IV NOW ONE Stop: 10/23/19 08:07 Last Infusion: 10/23/19 09:13 Dose: 0 mls/hr Documented by: Admin: 10/23/19 08:29 Dose: 102 mls/hr Documented by: VIOLETTA Ertapenem 1 gm/ Sodium (Chloride) 100 mls @ 200 mls/hr IV Q24H ANGELES Last Infusion: 10/26/19 12:10 Dose: 0 mls/hr Documented by: Admin: 10/26/19 11:36 Dose: 200 mls/hr Documented by: Infusion: 10/25/19 13:33 Dose: 0 mls/hr Documented by: Admin: 10/25/19 10:06 Dose: 200 mls/hr Documented by: Infusion: 10/24/19 13:09 Dose: 0 mls/hr Documented by: Admin: 10/24/19 10:28 Dose: 200 mls/hr Documented by: Infusion: 10/23/19 11:31 Dose: 0 mls/hr Documented by: Admin: 10/23/19 11:07 Dose: 200 mls/hr Documented by: AUGUSTO Propofol (Propofol) 1,000 mg in 100 mls @ 2.91 mls/hr IV TITRATE ANGELES; Protocol Last Titration: 10/28/19 08:40 Dose: 0 mcg/kg/min, 0 mls/hr Documented by: Admin: 10/28/19 06:28 Dose: 30 mcg/kg/min, 17 mls/hr Documented by: Titration: 10/28/19 06:28 Dose: 30 mcg/kg/min, 17 mls/hr Documented by: Titration: 10/28/19 05:22 Dose: 30 mcg/kg/min, 17 mls/hr Documented by: Admin: 10/28/19 00:45 Dose: 25 mcg/kg/min, 15 mls/hr Documented by: Titration: 10/28/19 00:33 Dose: 25 mcg/kg/min, 15 mls/hr Documented by: Titration: 10/27/19 23:45 Dose: 25 mcg/kg/min, 15 mls/hr Documented by: Admin: 10/27/19 16:24 Dose: 20 mcg/kg/min, 12 mls/hr Documented by: Titration: 10/27/19 16:24 Dose: 20 mcg/kg/min, 12 mls/hr Documented by: Admin: 10/27/19 09:20 Dose: 20 mcg/kg/min, 12 mls/hr Documented by: Titration: 10/27/19 09:20 Dose: 20 mcg/kg/min, 12 mls/hr Documented by: Admin: 10/27/19 02:28 Dose: 20 mcg/kg/min, 12 mls/hr Documented by: Titration: 10/27/19 01:41 Dose: 20 mcg/kg/min, 12 mls/hr Documented by: Titration: 10/27/19 01:00 Dose: 20 mcg/kg/min, 12 mls/hr Documented by: Admin: 10/26/19 18:52 Dose: 25 mcg/kg/min, 15 mls/hr Documented by: Titration: 10/26/19 18:52 Dose: 25 mcg/kg/min, 15 mls/hr Documented by: Titration: 10/26/19 13:00 Dose: 25 mcg/kg/min, 15 mls/hr Documented by: Titration: 10/26/19 12:45 Dose: 20 mcg/kg/min, 12 mls/hr Documented by: Admin: 10/26/19 12:33 Dose: 15 mcg/kg/min, 9 mls/hr Documented by: Titration: 10/26/19 12:33 Dose: 15 mcg/kg/min, 9 mls/hr Documented by: Admin: 10/26/19 08:15 Dose: 15 mcg/kg/min, 9 mls/hr Documented by: Titration: 10/26/19 08:15 Dose: 15 mcg/kg/min, 9 mls/hr Documented by: Titration: 10/26/19 08:00 Dose: 15 mcg/kg/min, 9 mls/hr Documented by: Titration: 10/26/19 07:45 Dose: 0 mcg/kg/min, 0 mls/hr Documented by: Admin: 10/25/19 21:39 Dose: 10 mcg/kg/min, 6 mls/hr Documented by: Titration: 10/25/19 21:39 Dose: 10 mcg/kg/min, 6 mls/hr Documented by: Titration: 10/25/19 12:00 Dose: 10 mcg/kg/min, 6 mls/hr Documented by: Admin: 10/25/19 10:06 Dose: 5 mcg/kg/min, 3 mls/hr Documented by: MARKHOCHRISTOPH Titration: 10/25/19 09:29 Dose: 0 mcg/kg/min, 0 mls/hr Documented by: Titration: 10/25/19 08:55 Dose: 0 mcg/kg/min, 0 mls/hr Documented by: Titration: 10/25/19 07:41 Dose: 5 mcg/kg/min, 3 mls/hr Documented by: Admin: 10/25/19 03:06 Dose: 5.15 mcg/kg/min, 3 mls/hr Documented by: Titration: 10/25/19 00:30 Dose: 5 mcg/kg/min, 3 mls/hr Documented by: Titration: 10/24/19 15:00 Dose: 0 mcg/kg/min, 0 mls/hr Documented by: Titration: 10/24/19 14:50 Dose: 10 mcg/kg/min, 6 mls/hr Documented by: Admin: 10/24/19 09:17 Dose: 8.59 mcg/kg/min, 5 mls/hr Documented by: Titration: 10/24/19 09:17 Dose: 8.59 mcg/kg/min, 5 mls/hr Documented by: Titration: 10/24/19 04:25 Dose: 8.59 mcg/kg/min, 5 mls/hr Documented by: Titration: 10/24/19 02:00 Dose: 0 mcg/kg/min, 0 mls/hr Documented by: Titration: 10/24/19 01:20 Dose: 2 mcg/kg/min, 1 mls/hr Documented by: Titration: 10/23/19 21:00 Dose: 5 mcg/kg/min, 3 mls/hr Documented by: Titration: 10/23/19 19:38 Dose: 10 mcg/kg/min, 6 mls/hr Documented by: Titration: 10/23/19 17:30 Dose: 15 mcg/kg/min, 9 mls/hr Documented by: Admin: 10/23/19 17:19 Dose: 20 mcg/kg/min, 12 mls/hr Documented by: Titration: 10/23/19 16:00 Dose: 25 mcg/kg/min, 15 mls/hr Documented by: Titration: 10/23/19 13:30 Dose: 20 mcg/kg/min, 12 mls/hr Documented by: Titration: 10/23/19 12:14 Dose: 5 mcg/kg/min, 3 mls/hr Documented by: Titration: 10/23/19 11:10 Dose: 0 mcg/kg/min, 0 mls/hr Documented by: Admin: 10/23/19 11:06 Dose: 5 mcg/kg/min, 2.91 mls/hr Documented by: TBLANTO Vancomycin HCl (Vancomycin) 1,000 mg in 200 mls @ 200 mls/hr IV Q24H ANGELES Last Infusion: 10/26/19 11:00 Dose: 0 mls/hr Documented by: Admin: 10/26/19 10:01 Dose: 200 mls/hr Documented by: Infusion: 10/25/19 09:53 Dose: 0 mls/hr Documented by: Admin: 10/25/19 08:53 Dose: 200 mls/hr Documented by: Infusion: 10/24/19 10:30 Dose: 0 mls/hr Documented by: Admin: 10/24/19 09:00 Dose: 200 mls/hr Documented by: CROW Sodium Chloride (Normal Saline 0.9%) 500 mls @ 1,000 mls/hr IV BOLUS ONE Stop: 10/23/19 22:22 Last Infusion: 10/23/19 23:00 Dose: 999 mls/hr Documented by: Admin: 10/23/19 22:02 Dose: 1,000 mls/hr Documented by: SAWYER Norepinephrine Bitartrate 4 mg (/ Dextrose) 254 mls @ 19.05 mls/hr IV TITRATE ANGELES; Protocol Last Titration: 10/28/19 08:01 Dose: 0 mcg/min, 0 mls/hr Documented by: Admin: 10/26/19 12:32 Dose: 5 mcg/min, 19.05 mls/hr Documented by: Titration: 10/26/19 12:32 Dose: 5 mcg/min, 19.05 mls/hr Documented by: Titration: 10/26/19 03:15 Dose: 5 mcg/min, 19.05 mls/hr Documented by: Titration: 10/26/19 02:37 Dose: 4 mcg/min, 15.24 mls/hr Documented by: Titration: 10/26/19 01:30 Dose: 2 mcg/min, 7.62 mls/hr Documented by: Titration: 10/25/19 20:12 Dose: 2 mcg/min, 7.62 mls/hr Documented by: Titration: 10/25/19 19:15 Dose: 1 mcg/min, 3.81 mls/hr Documented by: Titration: 10/25/19 09:29 Dose: 0 mcg/min, 0 mls/hr Documented by: Admin: 10/25/19 08:03 Dose: 1 mcg/min, 3.81 mls/hr Documented by: Titration: 10/25/19 08:01 Dose: 0 mcg/min, 0 mls/hr Documented by: Titration: 10/25/19 07:41 Dose: 1 mcg/min, 3.81 mls/hr Documented by: Titration: 10/25/19 02:30 Dose: 2 mcg/min, 7.62 mls/hr Documented by: Titration: 10/24/19 22:49 Dose: 3 mcg/min, 11.43 mls/hr Documented by: Titration: 10/24/19 22:30 Dose: 4 mcg/min, 15.24 mls/hr Documented by: Titration: 10/24/19 22:05 Dose: 2 mcg/min, 7.62 mls/hr Documented by: Titration: 10/24/19 09:30 Dose: 0 mcg/min, 0 mls/hr Documented by: Titration: 10/24/19 09:00 Dose: 1 mcg/min, 3.81 mls/hr Documented by: Admin: 10/24/19 07:45 Dose: 2 mcg/min, 7.62 mls/hr Documented by: Titration: 10/24/19 07:41 Dose: 0 mcg/min, 0 mls/hr Documented by: Titration: 10/24/19 07:40 Dose: 0 mcg/min, 0 mls/hr Documented by: Titration: 10/24/19 06:30 Dose: 2 mcg/min, 7.62 mls/hr Documented by: Titration: 10/24/19 06:05 Dose: 3 mcg/min, 11.43 mls/hr Documented by: Titration: 10/24/19 04:37 Dose: 4 mcg/min, 15.24 mls/hr Documented by: Titration: 10/24/19 02:30 Dose: 2 mcg/min, 7.62 mls/hr Documented by: Admin: 10/24/19 02:28 Dose: 4 mcg/min, 15.24 mls/hr Documented by: LEISA Calcium Gluconate 9.3 meq/ (Sodium Chloride) 70 mls @ 140 mls/hr IV NOW ONE Stop: 10/24/19 05:58 Last Infusion: 10/24/19 07:35 Dose: 0 mls/hr Documented by: Admin: 10/24/19 06:53 Dose: 140 mls/hr Documented by: LEISA Sodium Chloride (Normal Saline 0.9%) 500 mls @ 1,000 mls/hr IV BOLUS ONE Stop: 10/24/19 09:44 Last Infusion: 10/24/19 09:58 Dose: 0 mls/hr Documented by: Admin: 10/24/19 09:15 Dose: 1,000 mls/hr Documented by: CROW Magnesium Sulfate (Magnesium Sulfate) 2 gm in 50 mls @ 25 mls/hr IV NOW ONE Stop: 10/24/19 17:39 Last Infusion: 10/24/19 19:00 Dose: 25 mls/hr Documented by: LEISA Cosigned by: SHARRI Admin: 10/24/19 16:34 Dose: 25 mls/hr Documented by: SAWYER Cosigned by: KATHY Sodium Chloride (Normal Saline 0.9%) 500 mls @ 500 mls/hr IV BOLUS ONE Stop: 10/24/19 22:04 Last Infusion: 10/24/19 23:42 Dose: 500 mls/hr Documented by: Admin: 10/24/19 21:05 Dose: 500 mls/hr Documented by: SAWYER Potassium Chloride 60 meq/ (Sodium Chloride) 530 mls @ 88.333 mls/hr IV NOW ONE Stop: 10/25/19 13:04 Last Admin: 10/25/19 08:03 Dose: 88.333 mls/hr Documented by: CROW Cosigned by: AUGUSTO Calcium Gluconate 9.3 meq/ (Sodium Chloride) 70 mls @ 140 mls/hr IV NOW ONE Stop: 10/25/19 20:45 Last Infusion: 10/25/19 23:21 Dose: 0 mls/hr Documented by: Admin: 10/25/19 21:33 Dose: 140 mls/hr Documented by: SEVERO Vancomycin HCl 1,250 mg/ (Sodium Chloride) 250 mls @ 250 mls/hr IV Q24H [facility] Last Infusion: 10/30/19 08:59 Dose: 0 mls/hr Documented by: Admin: 10/30/19 06:41 Dose: 250 mls/hr Documented by: Infusion: 10/29/19 07:39 Dose: 0 mls/hr Documented by: Admin: 10/29/19 06:18 Dose: 250 mls/hr Documented by: Infusion: 10/28/19 07:41 Dose: 0 mls/hr Documented by: Admin: 10/28/19 06:09 Dose: 250 mls/hr Documented by: Infusion: 10/27/19 07:25 Dose: 0 mls/hr Documented by: Admin: 10/27/19 06:24 Dose: 250 mls/hr Documented by: LEISA Cefepime HCl 2 gm/ Sodium (Chloride) 100 mls @ 200 mls/hr IV Q12H [facility] Last Infusion: 10/30/19 12:22 Dose: 0 mls/hr Documented by: Admin: 10/30/19 11:30 Dose: 200 mls/hr Documented by: Infusion: 10/30/19 01:45 Dose: 0 mls/hr Documented by: Admin: 10/30/19 00:56 Dose: 200 mls/hr Documented by: Infusion: 10/29/19 16:17 Dose: 200 mls/hr Documented by: Admin: 10/29/19 13:24 Dose: 200 mls/hr Documented by: Infusion: 10/29/19 00:42 Dose: 200 mls/hr Documented by: Admin: 10/28/19 23:50 Dose: 200 mls/hr Documented by: Infusion: 10/28/19 18:49 Dose: 0 mls/hr Documented by: Admin: 10/28/19 13:40 Dose: 200 mls/hr Documented by: Infusion: 10/28/19 05:22 Dose: 200 mls/hr Documented by: Infusion: 10/28/19 01:00 Dose: 200 mls/hr Documented by: Admin: 10/28/19 00:44 Dose: 200 mls/hr Documented by: Infusion: 10/27/19 14:47 Dose: 0 mls/hr Documented by: Admin: 10/27/19 12:45 Dose: 200 mls/hr Documented by: Infusion: 10/27/19 01:34 Dose: 200 mls/hr Documented by: Admin: 10/27/19 00:32 Dose: 200 mls/hr Documented by: Infusion: 10/26/19 13:40 Dose: 200 mls/hr Documented by: Admin: 10/26/19 13:05 Dose: 200 mls/hr Documented by: JAYNA Magnesium Sulfate (Magnesium Sulfate) 2 gm in 50 mls @ 25 mls/hr IV NOW ONE Stop: 10/27/19 16:15 Last Infusion: 10/27/19 17:00 Dose: 25 mls/hr Documented by: LEISA Cosigned by: JESSICA Admin: 10/27/19 14:41 Dose: 25 mls/hr Documented by: ERICH Cosigned by: JAYNA Sodium Chloride (Normal Saline 0.9%) 250 mls @ 21 mls/hr IV Q24H PRN PRN Reason: Flush Last Admin: 10/30/19 01:00 Dose: 21 mls/hr Documented by: ALEXANDREA Insulin Aspart (Novolog Flexpen) 0 unit SUBCUT Q6H [facility]; Protocol Last Admin: 10/25/19 08:30 Dose: 4 unit Documented by: CROW Cosigned by: AUGUSTO Admin: 10/25/19 03:08 Dose: 300 unit Documented by: LEISA Cosigned by: BARBARA Admin: 10/24/19 20:11 Dose: 2 unit Documented by: SAWYER Cosigned by: ALFA Admin: 10/24/19 15:08 Dose: 2 unit Documented by: CROW Cosigned by: SAWYER Admin: 10/24/19 09:11 Dose: 2 unit Documented by: CROW Cosigned by: FLORA Admin: 10/24/19 03:14 Dose: 1 unit Documented by: LEISA Cosigned by: DANGELO Admin: 10/23/19 21:08 Dose: 2 unit Documented by: SAWYER Cosigned by: ALFA Insulin Aspart (Novolog Flexpen) 0 unit SUBCUT 0600,1200,1800,0000 [facility]; Protocol Last Admin: 10/26/19 14:42 Dose: Not Given Documented by: Admin: 10/26/19 05:58 Dose: 3 unit Documented by: SHARRI Cosigned by: CHECO Admin: 10/26/19 00:35 Dose: 3 unit Documented by: LIAN Cosigned by: MITCHEL Admin: 10/25/19 18:22 Dose: 4 unit Documented by: SEVERO Cosigned by: LARRY Admin: 10/25/19 13:44 Dose: 4 unit Documented by: CROW Cosigned by: AUGUSTO Insulin Aspart (Novolog Flexpen) 0 unit SUBCUT Q6H [facility]; Protocol Last Admin: 10/28/19 12:10 Dose: 2 unit Documented by: CROW Cosigned by: AUGUSTO Admin: 10/28/19 06:12 Dose: 2 unit Documented by: LEISA Cosigned by: JESSICA Admin: 10/28/19 00:41 Dose: Not Given Documented by: Admin: 10/27/19 18:42 Dose: Not Given Documented by: Admin: 10/27/19 12:46 Dose: Not Given Documented by: Admin: 10/27/19 06:18 Dose: Not Given Documented by: Admin: 10/27/19 00:10 Dose: Not Given Documented by: Admin: 10/26/19 18:55 Dose: 7 unit Documented by: SEVERO Cosigned by: LARRY Admin: 10/26/19 12:49 Dose: 10 unit Documented by: JAYNA Cosigned by: CHECO Insulin Aspart (Novolog Flexpen) 0 unit SUBCUT ACHS [facility]; Protocol Last Admin: 10/30/19 12:21 Dose: Not Given Documented by: Admin: 10/30/19 08:49 Dose: Not Given Documented by: Admin: 10/29/19 20:59 Dose: Not Given Documented by: Admin: 10/29/19 17:01 Dose: Not Given Documented by: Admin: 10/29/19 12:55 Dose: Not Given Documented by: Admin: 10/29/19 07:39 Dose: Not Given Documented by: Admin: 10/28/19 19:44 Dose: Not Given Documented by: Admin: 10/28/19 17:48 Dose: 2 unit Documented by: CROW Cosigned by: CELE Insulin Glargine (Lantus (Vial)) 10 unit SUBCUT BEDTIME [facility] Last Admin: 10/25/19 21:35 Dose: 10 unit Documented by: SEVERO Cosigned by: LARRY Insulin Glargine (Lantus (Vial)) 4 unit SUBCUT NOW ONE Stop: 10/26/19 00:44 Last Admin: 10/26/19 00:55 Dose: 4 unit Documented by: SHARRI Cosigned by: LIAN Insulin Glargine (Lantus (Vial)) 14 unit SUBCUT BEDTIME [facility] Insulin Glargine (Lantus (Vial)) 20 unit SUBCUT BEDTIME [facility] Last Admin: 10/27/19 22:55 Dose: 20 unit Documented by: SEVERO Cosigned by: LARRY Admin: 10/26/19 21:24 Dose: 20 unit Documented by: SEVERO Cosigned by: LARRY Insulin Glargine (Lantus Solostar (Pen)) 20 unit SUBCUT BEDTIME [facility] Last Admin: 10/29/19 20:59 Dose: Not Given Documented by: Admin: 10/28/19 19:56 Dose: 20 unit Documented by: KATHY Cosigned by: JYOTI Levothyroxine Sodium (Synthroid) 150 mcg PO 0600 [facility] Last Admin: 10/30/19 06:41 Dose: 150 mcg Documented by: Admin: 10/29/19 09:08 Dose: 150 mcg Documented by: Admin: 10/28/19 06:10 Dose: 150 mcg Documented by: Admin: 10/27/19 06:25 Dose: 150 mcg Documented by: Admin: 10/26/19 06:13 Dose: 150 mcg Documented by: Admin: 10/25/19 08:07 Dose: 150 mcg Documented by: Admin: 10/24/19 09:01 Dose: 150 mcg Documented by: Admin: 10/24/19 06:38 Dose: Not Given Documented by: LEISA Naloxone HCl (Narcan) 0.2 mg IV Q2MIN PRN PRN Reason: Opiate Reversal Oxycodone HCl (Percolone) 20 mg PO Q6HR PRN PRN Reason: Pain, Severe (7-10) Last Admin: 10/30/19 12:26 Dose: 20 mg Documented by: Admin: 10/30/19 06:44 Dose: 20 mg Documented by: Admin: 10/29/19 21:23 Dose: 20 mg Documented by: Admin: 10/29/19 09:09 Dose: 20 mg Documented by: Admin: 10/29/19 01:29 Dose: 20 mg Documented by: Admin: 10/28/19 19:43 Dose: 20 mg Documented by: Admin: 10/28/19 14:08 Dose: 20 mg Documented by: CROW Pantoprazole Sodium (Protonix) 40 mg IV DAILY [facility] Last Admin: 10/30/19 08:58 Dose: 40 mg Documented by: Admin: 10/29/19 09:08 Dose: 40 mg Documented by: Admin: 10/28/19 08:22 Dose: 40 mg Documented by: Admin: 10/27/19 10:34 Dose: 40 mg Documented by: Admin: 10/26/19 08:07 Dose: 40 mg Documented by: Admin: 10/25/19 08:07 Dose: 40 mg Documented by: Admin: 10/24/19 09:03 Dose: 40 mg Documented by: CROW Potassium Chloride (Potassium Chloride) 40 meq PO NOW ONE Stop: 10/27/19 14:17 Last Admin: 10/27/19 15:37 Dose: 40 meq Documented by: SEVERO Prednisone (Deltasone) 30 mg PO DAILY [facility] Last Admin: 10/30/19 08:56 Dose: Not Given Documented by: Admin: 10/29/19 13:08 Dose: Not Given Documented by: ERICH Propranolol HCl (Inderal La) 160 mg PO DAILY [facility] Last Admin: 10/24/19 09:00 Dose: Not Given Documented by: Admin: 10/23/19 17:17 Dose: Not Given Documented by: SAWYER Rocuronium [place] (Zemuron) 100 mg IV NOW ONE Stop: 10/23/19 07:27 Last Admin: 10/23/19 06:52 Dose: 100 mg Documented by: VIOLETTA Sertraline HCl (Zoloft) 100 mg PO DAILY [facility] Last Admin: 10/30/19 08:56 Dose: 100 mg Documented by: Admin: 10/29/19 09:09 Dose: 100 mg Documented by: Admin: 10/28/19 08:22 Dose: 100 mg Documented by: Admin: 10/27/19 10:33 Dose: 100 mg Documented by: Admin: 10/26/19 08:07 Dose: 100 mg Documented by: Admin: 10/25/19 08:07 Dose: 100 mg Documented by: Admin: 10/24/19 09:00 Dose: 100 mg Documented by: Admin: 10/23/19 17:18 Dose: 100 mg Documented by: SAWYER Sodium Chloride (Normal Saline 0.9% Flush) 10 ml IV PRN PRN PRN Reason: Flush Last Admin: 10/30/19 12:25 Dose: 10 ml Documented by: Admin: 10/30/19 00:57 Dose: 10 ml Documented by: Admin: 10/29/19 23:22 Dose: 10 ml Documented by: ALEXANDREA Sodium Chloride (Normal Saline 0.9% Flush) 10 ml IV BID [facility] Last Admin: 10/30/19 08:59 Dose: 10 ml Documented by: ALVIN Vancomycin HCl (Vancomycin Per Pharmacy) 1 request MIS NOW ONE Stop: 10/23/19 10:00 Last Admin: 10/23/19 10:00 Dose: 1 request Documented by: AUGUSTO Vancomycin HCl (Vancomycin Trough) 1 request [facility] [place] [address] [facility] Stop: 10/26/19 08:31 Last Admin: 10/26/19 10:46 Dose: Not Given Documented by: JAYNA Vancomycin HCl (Vancomycin Trough) 1 request MIS NOW ONE Stop: 10/30/19 05:31 Last Admin: 10/30/19 05:28 Dose: 1 request Documented by: ALEXANDREA Vital Signs Vital signs: Vital Signs - 8 hr 10/23/19 06:45 10/23/19 07:00 10/23/19 07:01 Temperature 99.1 F Pulse Rate 86 81 81 Respiratory Rate 12 32 H Blood Pressure 106/61 Blood Pressure [Left Arm] 106/61 69/44 L Pulse Oximetry 97 99 94 10/23/19 07:11 10/23/19 07:15 10/23/19 07:30 Temperature Pulse Rate 87 87 85 Respiratory Rate 16 18 16 Blood Pressure Blood Pressure [Left Arm] 64/52 L 93/59 L 91/60 Pulse Oximetry 100 100 99 10/23/19 07:45 10/23/19 08:00 10/23/19 08:10 Temperature Pulse Rate 82 81 84 Respiratory Rate 17 18 16 Blood Pressure Blood Pressure [Left Arm] 83/58 L 128/78 Pulse Oximetry 100 100 10/23/19 08:15 10/23/19 08:30 10/23/19 08:45 Temperature Pulse Rate 81 83 85 Respiratory Rate 18 19 21 Blood Pressure Blood Pressure [Left Arm] 118/72 120/71 137/75 Pulse Oximetry 100 100 100 10/23/19 09:00 10/23/19 09:15 Temperature Pulse Rate 83 83 Respiratory Rate 20 16 Blood Pressure Blood Pressure [Left Arm] 125/71 Pulse Oximetry 99 100 Medical Decision Making <Nga Vasquez MD - Last Filed: 11/14/19 20:05> Lab Data Result diagrams: 10/29/19 05:00 10/29/19 05:00 Labs: Lab Results 10/23/19 10/23/19 10/23/19 Range/Units 07:05 07:05 07:05 WBC 8.8 (4.5-11.0) X10^3/uL RBC 2.90 L (4.0-5.2) X10^6/uL Hgb 8.7 L (12.0-16.0) g/dL Hct 26.7 L (36-46) % MCV 91.9 (80-100) fL MCH 29.9 (26-34) PG MCHC 32.5 (30-36) % RDW 16.5 H (11.6-14.8) % Plt Count 157 (150-400) X10^3/uL Neut % (Auto) Not Reportable Lymph % (Auto) Not Reportable Rusk % (Auto) Not Reportable Eos % (Auto) Not Reportable Baso % (Auto) Not Reportable Lymph # (Auto) Not Reportable [place] # (Auto) Not Reportable Baso # (Auto) Not Reportable Total Counted 100 Seg Neutrophils % 73.0 H (38-70) % Band Neutrophils % 12.0 H (3-7) % Lymphocytes % (Manual) 4.0 L (25-45) % Atypical Lymphs % 1.0 H ( - 0) % Monocytes % (Manual) 8.0 (2-11) % Metamyelocytes % 1.0 H (-0) % Myelocytes % 1.0 H (-0) % Neutrophils # (Manual) 7480 H (0269-1634) /uL RBC Morphology See below Anisocytosis 1+ H PT (10.1-12.7) SECONDS INR (0.9-1.3) APTT (26.4-36.2) SECONDS ABG pH (7.35-7.45) ABG pCO2 (35-45) mmHg ABG pO2 (80-100) mmHg ABG HCO3 (22-26) mmol/L ABG Total CO2 (21-31) mmol/L ABG O2 Saturation (95-100) % ABG Base Excess (-2-2) mmol/L FiO2 Sodium 141 (137-145) mmol/L Potassium 4.7 (3.4-5.1) mmol/L Chloride 109 H (98-107) mmol/L Carbon Dioxide 21 L (22-32) mmol/L BUN 52 H (7-17) mg/dL Creatinine 1.60 H (0.52-1.04) mg/dL Estimated GFR 30.9 L (>60) mL/min BUN/Creatinine Ratio 32.5 H (6-22) Glucose 185 H (80-110) mg/dL Hemoglobin A1c (4.0-6.0) % Lactate (0.7-2.1) mmol/L Calcium 7.0 L (8.4-10.2) mg/dL Total Bilirubin 0.9 (0.2-1.3) mg/dL AST 26 (14-36) IU/L ALT 15 (<35) IU/L Alkaline Phosphatase 159 H (38-126) U/L Total Creatine Kinase (30-135) U/L CK-MB (CK-2) CK-MB (CK-2) Rel Index Troponin I (0.01-0.034) ng/mL B-Natriuretic Peptide (<100) Total Protein 5.4 L (6.3-8.2) g/dL Albumin 2.7 L (3.5-5.0) g/dL Globulin 2.7 (1.7-4.1) g/dL Albumin/Globulin Ratio 1.0 (1.0-2.8) Lipase (23-300) U/L Procalcitonin 3.68 H (<0.5) ng/mL Urine Color Urine Appearance Urine pH (4.5-8.0) Ur Specific [place] (1.000-1.035) Urine Protein (Negative) Urine Glucose (UA) (Negative) g/dL Urine Ketones (NEGATIVE) Urine Occult Blood (Negative) Urine Nitrate (Negative) Urine Bilirubin (NEGATIVE) Urine Urobilinogen (0.2) E.U./dL Ur Leukocyte Esterase (NEGATIVE) Urine RBC (0-5/HPF) Urine WBC (0-5/HPF) Amorphous Sediment Urine Bacteria (None) WBC Casts (None) Ur Culture Indicated? A. baumannii (PCR) (Not Detect) Chlamy pneumoniae PCR (Not Detect) Adenovirus (PCR) (Not Detect) B.parapertussis DNA PCR (Not Detect) Dora albicans (PCR) (Not Detect) C. glabrata (PCR) (Not Detect) C. krusei (PCR) (Not Detect) C. parapsilosis (PCR) (Not Detect) C. tropicalis (PCR) (Not Detect) Coronavirus OC43 (PCR) (Not Detect) Coronavirus HKU1 (PCR) (Not Detect) Coronavirus 229E (PCR) (Not Detect) Coronavirus NL63 (PCR) (Not Detect) Enterobacteriac sp PCR (Not Detect) E. cloacae complex PCR (Not Detect) Enterococcus sp PCR (Not Detect) E. coli (PCR) (Not Detect) H. influenzae (PCR) (Not Detect) Human Metapneumovir PCR (Not Detect) Influenza Type A (PCR) (Not Detect) Influenza Type B (PCR) (Not Detect) Klebsiella oxytoca PCR (Not Detect) Klebsiella pneumoniae (Not Detect) List. monocytogenes PCR (Not Detect) M. pneumoniae (PCR) (Not Detect) N. meningitidis (PCR) (Not Detect) Parainfluenza 1 (PCR) (Not Detect) Parainfluenza 2 (PCR) (Not Detect) Parainfluenza 3 (PCR) (Not Detect) Parainfluenza 4 (PCR) (Not Detect) Proteus species (PCR) (Not Detect) RSV (PCR) (Not Detect) Entero/Rhino (PCR) (Not Detect) Serratia marcescens PCR (Not Detect) Staphylococcus sp PCR (Not Detect) Staph aureus (PCR) (Not Detect) mecA-Methicil Res Gene (Not Detect) Streptococcus sp PCR (Not Detect) Group A Strep (PCR) (Not Detect) Strep agalactiae (PCR) (Not Detect) Strep pneumoniae (PCR) (Not Detect) P. aeruginosa (PCR) (Not Detect) Herminio/B-Vanco Res Genes KPC-Carbap Res Gene PCR 10/23/19 10/23/19 10/23/19 Range/Units 07:05 07:05 07:05 WBC (4.5-11.0) X10^3/uL RBC (4.0-5.2) X10^6/uL Hgb (12.0-16.0) g/dL Hct (36-46) % MCV (80-100) fL MCH (26-34) PG MCHC (30-36) % RDW (11.6-14.8) % Plt Count (150-400) X10^3/uL Neut % (Auto) Lymph % (Auto) [place] % (Auto) Eos % (Auto) Baso % (Auto) Lymph # (Auto) [place] # (Auto) Baso # (Auto) Total Counted Seg Neutrophils % (38-70) % Band Neutrophils % (3-7) % Lymphocytes % (Manual) (25-45) % Atypical Lymphs % ( - 0) % Monocytes % (Manual) (2-11) % Metamyelocytes % (-0) % Myelocytes % (-0) % Neutrophils # (Manual) (8083-4368) /uL RBC Morphology Anisocytosis PT (10.1-12.7) SECONDS INR (0.9-1.3) APTT (26.4-36.2) SECONDS ABG pH (7.35-7.45) ABG pCO2 (35-45) mmHg ABG pO2 (80-100) mmHg ABG HCO3 (22-26) mmol/L ABG Total CO2 (21-31) mmol/L ABG O2 Saturation (95-100) % ABG Base Excess (-2-2) mmol/L FiO2 Sodium (137-145) mmol/L Potassium (3.4-5.1) mmol/L Chloride (98-107) mmol/L Carbon Dioxide (22-32) mmol/L BUN (7-17) mg/dL Creatinine (0.52-1.04) mg/dL Estimated GFR (>60) mL/min BUN/Creatinine Ratio (6-22) Glucose (80-110) mg/dL Hemoglobin A1c (4.0-6.0) % Lactate 0.9 (0.7-2.1) mmol/L Calcium (8.4-10.2) mg/dL Total Bilirubin (0.2-1.3) mg/dL AST (14-36) IU/L ALT (<35) IU/L Alkaline Phosphatase (38-126) U/L Total Creatine Kinase 58 (30-135) U/L CK-MB (CK-2) TNP CK-MB (CK-2) Rel Index TNP Troponin I < 0.012 (0.01-0.034) ng/mL B-Natriuretic Peptide 563 H (<100) Total Protein (6.3-8.2) g/dL Albumin (3.5-5.0) g/dL Globulin (1.7-4.1) g/dL Albumin/Globulin Ratio (1.0-2.8) Lipase (23-300) U/L Procalcitonin (<0.5) ng/mL Urine Color Urine Appearance Urine pH (4.5-8.0) Ur Specific [place] (1.000-1.035) Urine Protein (Negative) Urine Glucose (UA) (Negative) g/dL Urine Ketones (NEGATIVE) Urine Occult Blood (Negative) Urine Nitrate (Negative) Urine Bilirubin (NEGATIVE) Urine Urobilinogen (0.2) E.U./dL Ur Leukocyte Esterase (NEGATIVE) Urine RBC (0-5/HPF) Urine WBC (0-5/HPF) Amorphous Sediment Urine Bacteria (None) WBC Casts (None) Ur Culture Indicated? A. baumannii (PCR) (Not Detect) Chlamy pneumoniae PCR (Not Detect) Adenovirus (PCR) (Not Detect) B.parapertussis DNA PCR (Not Detect) Dora albicans (PCR) (Not Detect) C. glabrata (PCR) (Not Detect) C. krusei (PCR) (Not Detect) C. parapsilosis (PCR) (Not Detect) C. tropicalis (PCR) (Not Detect) Coronavirus OC43 (PCR) (Not Detect) Coronavirus HKU1 (PCR) (Not Detect) Coronavirus 229E (PCR) (Not Detect) Coronavirus NL63 (PCR) (Not Detect) Enterobacteriac sp PCR (Not Detect) E. cloacae complex PCR (Not Detect) Enterococcus sp PCR (Not Detect) E. coli (PCR) (Not Detect) H. influenzae (PCR) (Not Detect) Human Metapneumovir PCR (Not Detect) Influenza Type A (PCR) (Not Detect) Influenza Type B (PCR) (Not Detect) Klebsiella oxytoca PCR (Not Detect) Klebsiella pneumoniae (Not Detect) List. monocytogenes PCR (Not Detect) M. pneumoniae (PCR) (Not Detect) N. meningitidis (PCR) (Not Detect) Parainfluenza 1 (PCR) (Not Detect) Parainfluenza 2 (PCR) (Not Detect) Parainfluenza 3 (PCR) (Not Detect) Parainfluenza 4 (PCR) (Not Detect) Proteus species (PCR) (Not Detect) RSV (PCR) (Not Detect) Entero/Rhino (PCR) (Not Detect) Serratia marcescens PCR (Not Detect) Staphylococcus sp PCR (Not Detect) Staph aureus (PCR) (Not Detect) mecA-Methicil Res Gene (Not Detect) Streptococcus sp PCR (Not Detect) Group A Strep (PCR) (Not Detect) Strep agalactiae (PCR) (Not Detect) Strep pneumoniae (PCR) (Not Detect) P. aeruginosa (PCR) (Not Detect) Herminio/B-Vanco Res Genes KPC-Carbap Res Gene PCR 10/23/19 10/23/19 10/23/19 Range/Units 07:05 07:05 07:05 WBC (4.5-11.0) X10^3/uL RBC (4.0-5.2) X10^6/uL Hgb (12.0-16.0) g/dL Hct (36-46) % MCV (80-100) fL MCH (26-34) PG MCHC (30-36) % RDW (11.6-14.8) % Plt Count (150-400) X10^3/uL Neut % (Auto) Lymph % (Auto) [place] % (Auto) Eos % (Auto) Baso % (Auto) Lymph # (Auto) [place] # (Auto) Baso # (Auto) Total Counted Seg Neutrophils % (38-70) % Band Neutrophils % (3-7) % Lymphocytes % (Manual) (25-45) % Atypical Lymphs % ( - 0) % Monocytes % (Manual) (2-11) % Metamyelocytes % (-0) % Myelocytes % (-0) % Neutrophils # (Manual) (3986-5887) /uL RBC Morphology Anisocytosis PT 150.3 H D (10.1-12.7) SECONDS INR 12.3 H* (0.9-1.3) APTT 58 H D (26.4-36.2) SECONDS ABG pH (7.35-7.45) ABG pCO2 (35-45) mmHg ABG pO2 (80-100) mmHg ABG HCO3 (22-26) mmol/L ABG Total CO2 (21-31) mmol/L ABG O2 Saturation (95-100) % ABG Base Excess (-2-2) mmol/L FiO2 Sodium (137-145) mmol/L Potassium (3.4-5.1) mmol/L Chloride (98-107) mmol/L Carbon Dioxide (22-32) mmol/L BUN (7-17) mg/dL Creatinine (0.52-1.04) mg/dL Estimated GFR (>60) mL/min BUN/Creatinine Ratio (6-22) Glucose (80-110) mg/dL Hemoglobin A1c 7.9 H (4.0-6.0) % Lactate (0.7-2.1) mmol/L Calcium (8.4-10.2) mg/dL Total Bilirubin (0.2-1.3) mg/dL AST (14-36) IU/L ALT (<35) IU/L Alkaline Phosphatase (38-126) U/L Total Creatine Kinase (30-135) U/L CK-MB (CK-2) CK-MB (CK-2) Rel Index Troponin I (0.01-0.034) ng/mL B-Natriuretic Peptide (<100) Total Protein (6.3-8.2) g/dL Albumin (3.5-5.0) g/dL Globulin (1.7-4.1) g/dL Albumin/Globulin Ratio (1.0-2.8) Lipase 60 D (23-300) U/L Procalcitonin (<0.5) ng/mL Urine Color Urine Appearance Urine pH (4.5-8.0) Ur Specific [place] (1.000-1.035) Urine Protein (Negative) Urine Glucose (UA) (Negative) g/dL Urine Ketones (NEGATIVE) Urine Occult Blood (Negative) Urine Nitrate (Negative) Urine Bilirubin (NEGATIVE) Urine Urobilinogen (0.2) E.U./dL Ur Leukocyte Esterase (NEGATIVE) Urine RBC (0-5/HPF) Urine WBC (0-5/HPF) Amorphous Sediment Urine Bacteria (None) WBC Casts (None) Ur Culture Indicated? A. baumannii (PCR) (Not Detect) Chlamy pneumoniae PCR (Not Detect) Adenovirus (PCR) (Not Detect) B.parapertussis DNA PCR (Not Detect) Dora albicans (PCR) (Not Detect) C. glabrata (PCR) (Not Detect) C. krusei (PCR) (Not Detect) C. parapsilosis (PCR) (Not Detect) C. tropicalis (PCR) (Not Detect) Coronavirus OC43 (PCR) (Not Detect) Coronavirus HKU1 (PCR) (Not Detect) Coronavirus 229E (PCR) (Not Detect) Coronavirus NL63 (PCR) (Not Detect) Enterobacteriac sp PCR (Not Detect) E. cloacae complex PCR (Not Detect) Enterococcus sp PCR (Not Detect) E. coli (PCR) (Not Detect) H. influenzae (PCR) (Not Detect) Human Metapneumovir PCR (Not Detect) Influenza Type A (PCR) (Not Detect) Influenza Type B (PCR) (Not Detect) Klebsiella oxytoca PCR (Not Detect) Klebsiella pneumoniae (Not Detect) List. monocytogenes PCR (Not Detect) M. pneumoniae (PCR) (Not Detect) N. meningitidis (PCR) (Not Detect) Parainfluenza 1 (PCR) (Not Detect) Parainfluenza 2 (PCR) (Not Detect) Parainfluenza 3 (PCR) (Not Detect) Parainfluenza 4 (PCR) (Not Detect) Proteus species (PCR) (Not Detect) RSV (PCR) (Not Detect) Entero/Rhino (PCR) (Not Detect) Serratia marcescens PCR (Not Detect) Staphylococcus sp PCR (Not Detect) Staph aureus (PCR) (Not Detect) mecA-Methicil Res Gene (Not Detect) Streptococcus sp PCR (Not Detect) Group A Strep (PCR) (Not Detect) Strep agalactiae (PCR) (Not Detect) Strep pneumoniae (PCR) (Not Detect) P. aeruginosa (PCR) (Not Detect) Herminio/B-Vanco Res Genes KPC-Carbap Res Gene PCR 10/23/19 10/23/19 10/23/19 Range/Units 07:05 07:14 07:23 WBC (4.5-11.0) X10^3/uL RBC (4.0-5.2) X10^6/uL Hgb (12.0-16.0) g/dL Hct (36-46) % MCV (80-100) fL MCH (26-34) PG MCHC (30-36) % RDW (11.6-14.8) % Plt Count (150-400) X10^3/uL Neut % (Auto) Lymph % (Auto) [place] % (Auto) Eos % (Auto) Baso % (Auto) Lymph # (Auto) [place] # (Auto) Baso # (Auto) Total Counted Seg Neutrophils % (38-70) % Band Neutrophils % (3-7) % Lymphocytes % (Manual) (25-45) % Atypical Lymphs % ( - 0) % Monocytes % (Manual) (2-11) % Metamyelocytes % (-0) % Myelocytes % (-0) % Neutrophils # (Manual) (3100-0923) /uL RBC Morphology Anisocytosis PT (10.1-12.7) SECONDS INR (0.9-1.3) APTT (26.4-36.2) SECONDS ABG pH (7.35-7.45) ABG pCO2 (35-45) mmHg ABG pO2 (80-100) mmHg ABG HCO3 (22-26) mmol/L ABG Total CO2 (21-31) mmol/L ABG O2 Saturation (95-100) % ABG Base Excess (-2-2) mmol/L FiO2 Sodium (137-145) mmol/L Potassium (3.4-5.1) mmol/L Chloride (98-107) mmol/L Carbon Dioxide (22-32) mmol/L BUN (7-17) mg/dL Creatinine (0.52-1.04) mg/dL Estimated GFR (>60) mL/min BUN/Creatinine Ratio (6-22) Glucose (80-110) mg/dL Hemoglobin A1c (4.0-6.0) % Lactate (0.7-2.1) mmol/L Calcium (8.4-10.2) mg/dL Total Bilirubin (0.2-1.3) mg/dL AST (14-36) IU/L ALT (<35) IU/L Alkaline Phosphatase (38-126) U/L Total Creatine Kinase (30-135) U/L CK-MB (CK-2) CK-MB (CK-2) Rel Index Troponin I (0.01-0.034) ng/mL B-Natriuretic Peptide (<100) Total Protein (6.3-8.2) g/dL Albumin (3.5-5.0) g/dL Globulin (1.7-4.1) g/dL Albumin/Globulin Ratio (1.0-2.8) Lipase (23-300) U/L Procalcitonin (<0.5) ng/mL Urine Color Yellow Urine Appearance Clear Urine pH 5.5 (4.5-8.0) Ur Specific [place] 1.010 (1.000-1.035) Urine Protein 2+ H (Negative) Urine Glucose (UA) Negative (Negative) g/dL Urine Ketones Trace H (NEGATIVE) Urine Occult Blood 2+ H (Negative) Urine Nitrate Negative (Negative) Urine Bilirubin Negative (NEGATIVE) Urine Urobilinogen 0.2 (0.2) E.U./dL Ur Leukocyte Esterase 1+ H (NEGATIVE) Urine RBC None seen (0-5/HPF) Urine WBC None seen (0-5/HPF) Amorphous Sediment 3+ Urine Bacteria None seen (None) WBC Casts 1-5/lpf H (None) Ur Culture Indicated? Specimen cultured A. baumannii (PCR) Not detected (Not Detect) Chlamy pneumoniae PCR Not detected (Not Detect) Adenovirus (PCR) Not detected (Not Detect) B.parapertussis DNA PCR Not detected (Not Detect) Dora albicans (PCR) Not detected (Not Detect) C. glabrata (PCR) Not detected (Not Detect) C. krusei (PCR) Not detected (Not Detect) C. parapsilosis (PCR) Not detected (Not Detect) C. tropicalis (PCR) Not detected (Not Detect) Coronavirus OC43 (PCR) Not detected (Not Detect) Coronavirus HKU1 (PCR) Not detected (Not Detect) Coronavirus 229E (PCR) Not detected (Not Detect) Coronavirus NL63 (PCR) Not detected (Not Detect) Enterobacteriac sp PCR Not detected (Not Detect) E. cloacae complex PCR Not detected (Not Detect) Enterococcus sp PCR Not detected (Not Detect) E. coli (PCR) Not detected (Not Detect) H. influenzae (PCR) Not detected (Not Detect) Human Metapneumovir PCR Not detected (Not Detect) Influenza Type A (PCR) Not detected (Not Detect) Influenza Type B (PCR) Not detected (Not Detect) Klebsiella oxytoca PCR Not detected (Not Detect) Klebsiella pneumoniae Not detected (Not Detect) List. monocytogenes PCR Not detected (Not Detect) M. pneumoniae (PCR) Not detected (Not Detect) N. meningitidis (PCR) Not detected (Not Detect) Parainfluenza 1 (PCR) Detected H (Not Detect) Parainfluenza 2 (PCR) Not detected (Not Detect) Parainfluenza 3 (PCR) Not detected (Not Detect) Parainfluenza 4 (PCR) Not detected (Not Detect) Proteus species (PCR) Not detected (Not Detect) RSV (PCR) Not detected (Not Detect) Entero/Rhino (PCR) Not detected (Not Detect) Serratia marcescens PCR Not detected (Not Detect) Staphylococcus sp PCR Detected H (Not Detect) Staph aureus (PCR) Detected H (Not Detect) mecA-Methicil Res Gene Detected H (Not Detect) Streptococcus sp PCR Not detected (Not Detect) Group A Strep (PCR) Not detected (Not Detect) Strep agalactiae (PCR) Not detected (Not Detect) Strep pneumoniae (PCR) Not detected (Not Detect) P. aeruginosa (PCR) Not detected (Not Detect) Herminio/B-Vanco Res Genes Not Reportable KPC-Carbap Res Gene PCR Not Reportable 10/23/19 Range/Units 08:12 WBC (4.5-11.0) X10^3/uL RBC (4.0-5.2) X10^6/uL Hgb (12.0-16.0) g/dL Hct (36-46) % MCV (80-100) fL MCH (26-34) PG MCHC (30-36) % RDW (11.6-14.8) % Plt Count (150-400) X10^3/uL Neut % (Auto) Lymph % (Auto) [place] % (Auto) Eos % (Auto) Baso % (Auto) Lymph # (Auto) [place] # (Auto) Baso # (Auto) Total Counted Seg Neutrophils % (38-70) % Band Neutrophils % (3-7) % Lymphocytes % (Manual) (25-45) % Atypical Lymphs % ( - 0) % Monocytes % (Manual) (2-11) % Metamyelocytes % (-0) % Myelocytes % (-0) % Neutrophils # (Manual) (8380-3880) /uL RBC Morphology Anisocytosis PT (10.1-12.7) SECONDS INR (0.9-1.3) APTT (26.4-36.2) SECONDS ABG pH 7.28 L* (7.35-7.45) ABG pCO2 35.7 (35-45) mmHg ABG pO2 155 H (80-100) mmHg ABG HCO3 17 L (22-26) mmol/L ABG Total CO2 18 L (21-31) mmol/L ABG O2 Saturation 99 (95-100) % ABG Base Excess -10.0 L (-2-2) mmol/L FiO2 0.40 Sodium (137-145) mmol/L Potassium (3.4-5.1) mmol/L Chloride (98-107) mmol/L Carbon Dioxide (22-32) mmol/L BUN (7-17) mg/dL Creatinine (0.52-1.04) mg/dL Estimated GFR (>60) mL/min BUN/Creatinine Ratio (6-22) Glucose (80-110) mg/dL Hemoglobin A1c (4.0-6.0) % Lactate (0.7-2.1) mmol/L Calcium (8.4-10.2) mg/dL Total Bilirubin (0.2-1.3) mg/dL AST (14-36) IU/L ALT (<35) IU/L Alkaline Phosphatase (38-126) U/L Total Creatine Kinase (30-135) U/L CK-MB (CK-2) CK-MB (CK-2) Rel Index Troponin I (0.01-0.034) ng/mL B-Natriuretic Peptide (<100) Total Protein (6.3-8.2) g/dL Albumin (3.5-5.0) g/dL Globulin (1.7-4.1) g/dL Albumin/Globulin Ratio (1.0-2.8) Lipase (23-300) U/L Procalcitonin (<0.5) ng/mL Urine Color Urine Appearance Urine pH (4.5-8.0) Ur Specific [place] (1.000-1.035) Urine Protein (Negative) Urine Glucose (UA) (Negative) g/dL Urine Ketones (NEGATIVE) Urine Occult Blood (Negative) Urine Nitrate (Negative) Urine Bilirubin (NEGATIVE) Urine Urobilinogen (0.2) E.U./dL Ur Leukocyte Esterase (NEGATIVE) Urine RBC (0-5/HPF) Urine WBC (0-5/HPF) Amorphous Sediment Urine Bacteria (None) WBC Casts (None) Ur Culture Indicated? A. baumannii (PCR) (Not Detect) Chlamy pneumoniae PCR (Not Detect) Adenovirus (PCR) (Not Detect) B.parapertussis DNA PCR (Not Detect) Dora albicans (PCR) (Not Detect) C. glabrata (PCR) (Not Detect) C. krusei (PCR) (Not Detect) C. parapsilosis (PCR) (Not Detect) C. tropicalis (PCR) (Not Detect) Coronavirus OC43 (PCR) (Not Detect) Coronavirus HKU1 (PCR) (Not Detect) Coronavirus 229E (PCR) (Not Detect) Coronavirus NL63 (PCR) (Not Detect) Enterobacteriac sp PCR (Not Detect) E. cloacae complex PCR (Not Detect) Enterococcus sp PCR (Not Detect) E. coli (PCR) (Not Detect) H. influenzae (PCR) (Not Detect) Human Metapneumovir PCR (Not Detect) Influenza Type A (PCR) (Not Detect) Influenza Type B (PCR) (Not Detect) Klebsiella oxytoca PCR (Not Detect) Klebsiella pneumoniae (Not Detect) List. monocytogenes PCR (Not Detect) M. pneumoniae (PCR) (Not Detect) N. meningitidis (PCR) (Not Detect) Parainfluenza 1 (PCR) (Not Detect) Parainfluenza 2 (PCR) (Not Detect) Parainfluenza 3 (PCR) (Not Detect) Parainfluenza 4 (PCR) (Not Detect) Proteus species (PCR) (Not Detect) RSV (PCR) (Not Detect) Entero/Rhino (PCR) (Not Detect) Serratia marcescens PCR (Not Detect) Staphylococcus sp PCR (Not Detect) Staph aureus (PCR) (Not Detect) mecA-Methicil Res Gene (Not Detect) Streptococcus sp PCR (Not Detect) Group A Strep (PCR) (Not Detect) Strep agalactiae (PCR) (Not Detect) Strep pneumoniae (PCR) (Not Detect) P. aeruginosa (PCR) (Not Detect) Herminio/B-Vanco Res Genes KPC-Carbap Res Gene PCR <Sindy Montiel DO - Last Filed: 11/10/19 07:44> Lab Data Lab results reviewed: Yes I reviewed the patient's lab results. Labs: Lab Results 10/23/19 10/23/19 10/23/19 Range/Units 07:05 07:05 07:05 WBC 8.8 (4.5-11.0) X10^3/uL RBC 2.90 L (4.0-5.2) X10^6/uL Hgb 8.7 L (12.0-16.0) g/dL Hct 26.7 L (36-46) % MCV 91.9 (80-100) fL MCH 29.9 (26-34) PG MCHC 32.5 (30-36) % RDW 16.5 H (11.6-14.8) % Plt Count 157 (150-400) X10^3/uL Neut % (Auto) Not Reportable Lymph % (Auto) Not Reportable [place] % (Auto) Not Reportable Eos % (Auto) Not Reportable Baso % (Auto) Not Reportable Lymph # (Auto) Not Reportable [place] # (Auto) Not Reportable Baso # (Auto) Not Reportable Total Counted 100 Seg Neutrophils % 73.0 H (38-70) % Band Neutrophils % 12.0 H (3-7) % Lymphocytes % (Manual) 4.0 L (25-45) % Atypical Lymphs % 1.0 H ( - 0) % Monocytes % (Manual) 8.0 (2-11) % Metamyelocytes % 1.0 H (-0) % Myelocytes % 1.0 H (-0) % Neutrophils # (Manual) 7480 H (1488-1404) /uL RBC Morphology See below Anisocytosis 1+ H PT (10.1-12.7) SECONDS INR (0.9-1.3) APTT (26.4-36.2) SECONDS ABG pH (7.35-7.45) ABG pCO2 (35-45) mmHg ABG pO2 (80-100) mmHg ABG HCO3 (22-26) mmol/L ABG Total CO2 (21-31) mmol/L ABG O2 Saturation (95-100) % ABG Base Excess (-2-2) mmol/L FiO2 Sodium 141 (137-145) mmol/L Potassium 4.7 (3.4-5.1) mmol/L Chloride 109 H (98-107) mmol/L Carbon Dioxide 21 L (22-32) mmol/L BUN 52 H (7-17) mg/dL Creatinine 1.60 H (0.52-1.04) mg/dL Estimated GFR 30.9 L (>60) mL/min BUN/Creatinine Ratio 32.5 H (6-22) Glucose 185 H (80-110) mg/dL Hemoglobin A1c (4.0-6.0) % Lactate (0.7-2.1) mmol/L Calcium 7.0 L (8.4-10.2) mg/dL Total Bilirubin 0.9 (0.2-1.3) mg/dL AST 26 (14-36) IU/L ALT 15 (<35) IU/L Alkaline Phosphatase 159 H (38-126) U/L Total Creatine Kinase (30-135) U/L CK-MB (CK-2) CK-MB (CK-2) Rel Index Troponin I (0.01-0.034) ng/mL B-Natriuretic Peptide (<100) Total Protein 5.4 L (6.3-8.2) g/dL Albumin 2.7 L (3.5-5.0) g/dL Globulin 2.7 (1.7-4.1) g/dL Albumin/Globulin Ratio 1.0 (1.0-2.8) Lipase (23-300) U/L Procalcitonin 3.68 H (<0.5) ng/mL Urine Color Urine Appearance Urine pH (4.5-8.0) Ur Specific [place] (1.000-1.035) Urine Protein (Negative) Urine Glucose (UA) (Negative) g/dL Urine Ketones (NEGATIVE) Urine Occult Blood (Negative) Urine Nitrate (Negative) Urine Bilirubin (NEGATIVE) Urine Urobilinogen (0.2) E.U./dL Ur Leukocyte Esterase (NEGATIVE) Urine RBC (0-5/HPF) Urine WBC (0-5/HPF) Amorphous Sediment Urine Bacteria (None) WBC Casts (None) Ur Culture Indicated? A. baumannii (PCR) (Not Detect) Chlamy pneumoniae PCR (Not Detect) Adenovirus (PCR) (Not Detect) B.parapertussis DNA PCR (Not Detect) Dora albicans (PCR) (Not Detect) C. glabrata (PCR) (Not Detect) C. krusei (PCR) (Not Detect) C. parapsilosis (PCR) (Not Detect) C. tropicalis (PCR) (Not Detect) Coronavirus OC43 (PCR) (Not Detect) Coronavirus HKU1 (PCR) (Not Detect) Coronavirus 229E (PCR) (Not Detect) Coronavirus NL63 (PCR) (Not Detect) Enterobacteriac sp PCR (Not Detect) E. cloacae complex PCR (Not Detect) Enterococcus sp PCR (Not Detect) E. coli (PCR) (Not Detect) H. influenzae (PCR) (Not Detect) Human Metapneumovir PCR (Not Detect) Influenza Type A (PCR) (Not Detect) Influenza Type B (PCR) (Not Detect) Klebsiella oxytoca PCR (Not Detect) Klebsiella pneumoniae (Not Detect) List. monocytogenes PCR (Not Detect) M. pneumoniae (PCR) (Not Detect) N. meningitidis (PCR) (Not Detect) Parainfluenza 1 (PCR) (Not Detect) Parainfluenza 2 (PCR) (Not Detect) Parainfluenza 3 (PCR) (Not Detect) Parainfluenza 4 (PCR) (Not Detect) Proteus species (PCR) (Not Detect) RSV (PCR) (Not Detect) Entero/Rhino (PCR) (Not Detect) Serratia marcescens PCR (Not Detect) Staphylococcus sp PCR (Not Detect) Staph aureus (PCR) (Not Detect) mecA-Methicil Res Gene (Not Detect) Streptococcus sp PCR (Not Detect) Group A Strep (PCR) (Not Detect) Strep agalactiae (PCR) (Not Detect) Strep pneumoniae (PCR) (Not Detect) P. aeruginosa (PCR) (Not Detect) Herminio/B-Vanco Res Genes KPC-Carbap Res Gene PCR 10/23/19 10/23/19 10/23/19 Range/Units 07:05 07:05 07:05 WBC (4.5-11.0) X10^3/uL RBC (4.0-5.2) X10^6/uL Hgb (12.0-16.0) g/dL Hct (36-46) % MCV (80-100) fL MCH (26-34) PG MCHC (30-36) % RDW (11.6-14.8) % Plt Count (150-400) X10^3/uL Neut % (Auto) Lymph % (Auto) [place] % (Auto) Eos % (Auto) Baso % (Auto) Lymph # (Auto) [place] # (Auto) Baso # (Auto) Total Counted Seg Neutrophils % (38-70) % Band Neutrophils % (3-7) % Lymphocytes % (Manual) (25-45) % Atypical Lymphs % ( - 0) % Monocytes % (Manual) (2-11) % Metamyelocytes % (-0) % Myelocytes % (-0) % Neutrophils # (Manual) (0497-1849) /uL RBC Morphology Anisocytosis PT (10.1-12.7) SECONDS INR (0.9-1.3) APTT (26.4-36.2) SECONDS ABG pH (7.35-7.45) ABG pCO2 (35-45) mmHg ABG pO2 (80-100) mmHg ABG HCO3 (22-26) mmol/L ABG Total CO2 (21-31) mmol/L ABG O2 Saturation (95-100) % ABG Base Excess (-2-2) mmol/L FiO2 Sodium (137-145) mmol/L Potassium (3.4-5.1) mmol/L Chloride (98-107) mmol/L Carbon Dioxide (22-32) mmol/L BUN (7-17) mg/dL Creatinine (0.52-1.04) mg/dL Estimated GFR (>60) mL/min BUN/Creatinine Ratio (6-22) Glucose (80-110) mg/dL Hemoglobin A1c (4.0-6.0) % Lactate 0.9 (0.7-2.1) mmol/L Calcium (8.4-10.2) mg/dL Total Bilirubin (0.2-1.3) mg/dL AST (14-36) IU/L ALT (<35) IU/L Alkaline Phosphatase (38-126) U/L Total Creatine Kinase 58 (30-135) U/L CK-MB (CK-2) TNP CK-MB (CK-2) Rel Index TNP Troponin I < 0.012 (0.01-0.034) ng/mL B-Natriuretic Peptide 563 H (<100) Total Protein (6.3-8.2) g/dL Albumin (3.5-5.0) g/dL Globulin (1.7-4.1) g/dL Albumin/Globulin Ratio (1.0-2.8) Lipase (23-300) U/L Procalcitonin (<0.5) ng/mL Urine Color Urine Appearance Urine pH (4.5-8.0) Ur Specific [place] (1.000-1.035) Urine Protein (Negative) Urine Glucose (UA) (Negative) g/dL Urine Ketones (NEGATIVE) Urine Occult Blood (Negative) Urine Nitrate (Negative) Urine Bilirubin (NEGATIVE) Urine Urobilinogen (0.2) E.U./dL Ur Leukocyte Esterase (NEGATIVE) Urine RBC (0-5/HPF) Urine WBC (0-5/HPF) Amorphous Sediment Urine Bacteria (None) WBC Casts (None) Ur Culture Indicated? A. baumannii (PCR) (Not Detect) Chlamy pneumoniae PCR (Not Detect) Adenovirus (PCR) (Not Detect) B.parapertussis DNA PCR (Not Detect) Dora albicans (PCR) (Not Detect) C. glabrata (PCR) (Not Detect) C. krusei (PCR) (Not Detect) C. parapsilosis (PCR) (Not Detect) C. tropicalis (PCR) (Not Detect) Coronavirus OC43 (PCR) (Not Detect) Coronavirus HKU1 (PCR) (Not Detect) Coronavirus 229E (PCR) (Not Detect) Coronavirus NL63 (PCR) (Not Detect) Enterobacteriac sp PCR (Not Detect) E. cloacae complex PCR (Not Detect) Enterococcus sp PCR (Not Detect) E. coli (PCR) (Not Detect) H. influenzae (PCR) (Not Detect) Human Metapneumovir PCR (Not Detect) Influenza Type A (PCR) (Not Detect) Influenza Type B (PCR) (Not Detect) Klebsiella oxytoca PCR (Not Detect) Klebsiella pneumoniae (Not Detect) List. monocytogenes PCR (Not Detect) M. pneumoniae (PCR) (Not Detect) N. meningitidis (PCR) (Not Detect) Parainfluenza 1 (PCR) (Not Detect) Parainfluenza 2 (PCR) (Not Detect) Parainfluenza 3 (PCR) (Not Detect) Parainfluenza 4 (PCR) (Not Detect) Proteus species (PCR) (Not Detect) RSV (PCR) (Not Detect) Entero/Rhino (PCR) (Not Detect) Serratia marcescens PCR (Not Detect) Staphylococcus sp PCR (Not Detect) Staph aureus (PCR) (Not Detect) mecA-Methicil Res Gene (Not Detect) Streptococcus sp PCR (Not Detect) Group A Strep (PCR) (Not Detect) Strep agalactiae (PCR) (Not Detect) Strep pneumoniae (PCR) (Not Detect) P. aeruginosa (PCR) (Not Detect) Herminio/B-Vanco Res Genes KPC-Carbap Res Gene PCR 10/23/19 10/23/19 10/23/19 Range/Units 07:05 07:05 07:05 WBC (4.5-11.0) X10^3/uL RBC (4.0-5.2) X10^6/uL Hgb (12.0-16.0) g/dL Hct (36-46) % MCV (80-100) fL MCH (26-34) PG MCHC (30-36) % RDW (11.6-14.8) % Plt Count (150-400) X10^3/uL Neut % (Auto) Lymph % (Auto) [place] % (Auto) Eos % (Auto) Baso % (Auto) Lymph # (Auto) [place] # (Auto) Baso # (Auto) Total Counted Seg Neutrophils % (38-70) % Band Neutrophils % (3-7) % Lymphocytes % (Manual) (25-45) % Atypical Lymphs % ( - 0) % Monocytes % (Manual) (2-11) % Metamyelocytes % (-0) % Myelocytes % (-0) % Neutrophils # (Manual) (6436-8267) /uL RBC Morphology Anisocytosis PT 150.3 H D (10.1-12.7) SECONDS INR 12.3 H* (0.9-1.3) APTT 58 H D (26.4-36.2) SECONDS ABG pH (7.35-7.45) ABG pCO2 (35-45) mmHg ABG pO2 (80-100) mmHg ABG HCO3 (22-26) mmol/L ABG Total CO2 (21-31) mmol/L ABG O2 Saturation (95-100) % ABG Base Excess (-2-2) mmol/L FiO2 Sodium (137-145) mmol/L Potassium (3.4-5.1) mmol/L Chloride (98-107) mmol/L Carbon Dioxide (22-32) mmol/L BUN (7-17) mg/dL Creatinine (0.52-1.04) mg/dL Estimated GFR (>60) mL/min BUN/Creatinine Ratio (6-22) Glucose (80-110) mg/dL Hemoglobin A1c 7.9 H (4.0-6.0) % Lactate (0.7-2.1) mmol/L Calcium (8.4-10.2) mg/dL Total Bilirubin (0.2-1.3) mg/dL AST (14-36) IU/L ALT (<35) IU/L Alkaline Phosphatase (38-126) U/L Total Creatine Kinase (30-135) U/L CK-MB (CK-2) CK-MB (CK-2) Rel Index Troponin I (0.01-0.034) ng/mL B-Natriuretic Peptide (<100) Total Protein (6.3-8.2) g/dL Albumin (3.5-5.0) g/dL Globulin (1.7-4.1) g/dL Albumin/Globulin Ratio (1.0-2.8) Lipase 60 D (23-300) U/L Procalcitonin (<0.5) ng/mL Urine Color Urine Appearance Urine pH (4.5-8.0) Ur Specific [place] (1.000-1.035) Urine Protein (Negative) Urine Glucose (UA) (Negative) g/dL Urine Ketones (NEGATIVE) Urine Occult Blood (Negative) Urine Nitrate (Negative) Urine Bilirubin (NEGATIVE) Urine Urobilinogen (0.2) E.U./dL Ur Leukocyte Esterase (NEGATIVE) Urine RBC (0-5/HPF) Urine WBC (0-5/HPF) Amorphous Sediment Urine Bacteria (None) WBC Casts (None) Ur Culture Indicated? A. baumannii (PCR) (Not Detect) Chlamy pneumoniae PCR (Not Detect) Adenovirus (PCR) (Not Detect) B.parapertussis DNA PCR (Not Detect) Dora albicans (PCR) (Not Detect) C. glabrata (PCR) (Not Detect) C. krusei (PCR) (Not Detect) C. parapsilosis (PCR) (Not Detect) C. tropicalis (PCR) (Not Detect) Coronavirus OC43 (PCR) (Not Detect) Coronavirus HKU1 (PCR) (Not Detect) Coronavirus 229E (PCR) (Not Detect) Coronavirus NL63 (PCR) (Not Detect) Enterobacteriac sp PCR (Not Detect) E. cloacae complex PCR (Not Detect) Enterococcus sp PCR (Not Detect) E. coli (PCR) (Not Detect) H. influenzae (PCR) (Not Detect) Human Metapneumovir PCR (Not Detect) Influenza Type A (PCR) (Not Detect) Influenza Type B (PCR) (Not Detect) Klebsiella oxytoca PCR (Not Detect) Klebsiella pneumoniae (Not Detect) List. monocytogenes PCR (Not Detect) M. pneumoniae (PCR) (Not Detect) N. meningitidis (PCR) (Not Detect) Parainfluenza 1 (PCR) (Not Detect) Parainfluenza 2 (PCR) (Not Detect) Parainfluenza 3 (PCR) (Not Detect) Parainfluenza 4 (PCR) (Not Detect) Proteus species (PCR) (Not Detect) RSV (PCR) (Not Detect) Entero/Rhino (PCR) (Not Detect) Serratia marcescens PCR (Not Detect) Staphylococcus sp PCR (Not Detect) Staph aureus (PCR) (Not Detect) mecA-Methicil Res Gene (Not Detect) Streptococcus sp PCR (Not Detect) Group A Strep (PCR) (Not Detect) Strep agalactiae (PCR) (Not Detect) Strep pneumoniae (PCR) (Not Detect) P. aeruginosa (PCR) (Not Detect) Herminio/B-Vanco Res Genes KPC-Carbap Res Gene PCR 10/23/19 10/23/19 10/23/19 Range/Units 07:05 07:14 07:23 WBC (4.5-11.0) X10^3/uL RBC (4.0-5.2) X10^6/uL Hgb (12.0-16.0) g/dL Hct (36-46) % MCV (80-100) fL MCH (26-34) PG MCHC (30-36) % RDW (11.6-14.8) % Plt Count (150-400) X10^3/uL Neut % (Auto) Lymph % (Auto) [place] % (Auto) Eos % (Auto) Baso % (Auto) Lymph # (Auto) [place] # (Auto) Baso # (Auto) Total Counted Seg Neutrophils % (38-70) % Band Neutrophils % (3-7) % Lymphocytes % (Manual) (25-45) % Atypical Lymphs % ( - 0) % Monocytes % (Manual) (2-11) % Metamyelocytes % (-0) % Myelocytes % (-0) % Neutrophils # (Manual) (4787-2860) /uL RBC Morphology Anisocytosis PT (10.1-12.7) SECONDS INR (0.9-1.3) APTT (26.4-36.2) SECONDS ABG pH (7.35-7.45) ABG pCO2 (35-45) mmHg ABG pO2 (80-100) mmHg ABG HCO3 (22-26) mmol/L ABG Total CO2 (21-31) mmol/L ABG O2 Saturation (95-100) % ABG Base Excess (-2-2) mmol/L FiO2 Sodium (137-145) mmol/L Potassium (3.4-5.1) mmol/L Chloride (98-107) mmol/L Carbon Dioxide (22-32) mmol/L BUN (7-17) mg/dL Creatinine (0.52-1.04) mg/dL Estimated GFR (>60) mL/min BUN/Creatinine Ratio (6-22) Glucose (80-110) mg/dL Hemoglobin A1c (4.0-6.0) % Lactate (0.7-2.1) mmol/L Calcium (8.4-10.2) mg/dL Total Bilirubin (0.2-1.3) mg/dL AST (14-36) IU/L ALT (<35) IU/L Alkaline Phosphatase (38-126) U/L Total Creatine Kinase (30-135) U/L CK-MB (CK-2) CK-MB (CK-2) Rel Index Troponin I (0.01-0.034) ng/mL B-Natriuretic Peptide (<100) Total Protein (6.3-8.2) g/dL Albumin (3.5-5.0) g/dL Globulin (1.7-4.1) g/dL Albumin/Globulin Ratio (1.0-2.8) Lipase (23-300) U/L Procalcitonin (<0.5) ng/mL Urine Color Yellow Urine Appearance Clear Urine pH 5.5 (4.5-8.0) Ur Specific [place] 1.010 (1.000-1.035) Urine Protein 2+ H (Negative) Urine Glucose (UA) Negative (Negative) g/dL Urine Ketones Trace H (NEGATIVE) Urine Occult Blood 2+ H (Negative) Urine Nitrate Negative (Negative) Urine Bilirubin Negative (NEGATIVE) Urine Urobilinogen 0.2 (0.2) E.U./dL Ur Leukocyte Esterase 1+ H (NEGATIVE) Urine RBC None seen (0-5/HPF) Urine WBC None seen (0-5/HPF) Amorphous Sediment 3+ Urine Bacteria None seen (None) WBC Casts 1-5/lpf H (None) Ur Culture Indicated? Specimen cultured A. baumannii (PCR) Not detected (Not Detect) Chlamy pneumoniae PCR Not detected (Not Detect) Adenovirus (PCR) Not detected (Not Detect) B.parapertussis DNA PCR Not detected (Not Detect) Dora albicans (PCR) Not detected (Not Detect) C. glabrata (PCR) Not detected (Not Detect) C. krusei (PCR) Not detected (Not Detect) C. parapsilosis (PCR) Not detected (Not Detect) C. tropicalis (PCR) Not detected (Not Detect) Coronavirus OC43 (PCR) Not detected (Not Detect) Coronavirus HKU1 (PCR) Not detected (Not Detect) Coronavirus 229E (PCR) Not detected (Not Detect) Coronavirus NL63 (PCR) Not detected (Not Detect) Enterobacteriac sp PCR Not detected (Not Detect) E. cloacae complex PCR Not detected (Not Detect) Enterococcus sp PCR Not detected (Not Detect) E. coli (PCR) Not detected (Not Detect) H. influenzae (PCR) Not detected (Not Detect) Human Metapneumovir PCR Not detected (Not Detect) Influenza Type A (PCR) Not detected (Not Detect) Influenza Type B (PCR) Not detected (Not Detect) Klebsiella oxytoca PCR Not detected (Not Detect) Klebsiella pneumoniae Not detected (Not Detect) List. monocytogenes PCR Not detected (Not Detect) M. pneumoniae (PCR) Not detected (Not Detect) N. meningitidis (PCR) Not detected (Not Detect) Parainfluenza 1 (PCR) Detected H (Not Detect) Parainfluenza 2 (PCR) Not detected (Not Detect) Parainfluenza 3 (PCR) Not detected (Not Detect) Parainfluenza 4 (PCR) Not detected (Not Detect) Proteus species (PCR) Not detected (Not Detect) RSV (PCR) Not detected (Not Detect) Entero/Rhino (PCR) Not detected (Not Detect) Serratia marcescens PCR Not detected (Not Detect) Staphylococcus sp PCR Detected H (Not Detect) Staph aureus (PCR) Detected H (Not Detect) mecA-Methicil Res Gene Detected H (Not Detect) Streptococcus sp PCR Not detected (Not Detect) Group A Strep (PCR) Not detected (Not Detect) Strep agalactiae (PCR) Not detected (Not Detect) Strep pneumoniae (PCR) Not detected (Not Detect) P. aeruginosa (PCR) Not detected (Not Detect) Herminio/B-Vanco Res Genes Not Reportable KPC-Carbap Res Gene PCR Not Reportable 10/23/19 Range/Units 08:12 WBC (4.5-11.0) X10^3/uL RBC (4.0-5.2) X10^6/uL Hgb (12.0-16.0) g/dL Hct (36-46) % MCV (80-100) fL MCH (26-34) PG MCHC (30-36) % RDW (11.6-14.8) % Plt Count (150-400) X10^3/uL Neut % (Auto) Lymph % (Auto) [place] % (Auto) Eos % (Auto) Baso % (Auto) Lymph # (Auto) [place] # (Auto) Baso # (Auto) Total Counted Seg Neutrophils % (38-70) % Band Neutrophils % (3-7) % Lymphocytes % (Manual) (25-45) % Atypical Lymphs % ( - 0) % Monocytes % (Manual) (2-11) % Metamyelocytes % (-0) % Myelocytes % (-0) % Neutrophils # (Manual) (5402-0550) /uL RBC Morphology Anisocytosis PT (10.1-12.7) SECONDS INR (0.9-1.3) APTT (26.4-36.2) SECONDS ABG pH 7.28 L* (7.35-7.45) ABG pCO2 35.7 (35-45) mmHg ABG pO2 155 H (80-100) mmHg ABG HCO3 17 L (22-26) mmol/L ABG Total CO2 18 L (21-31) mmol/L ABG O2 Saturation 99 (95-100) % ABG Base Excess -10.0 L (-2-2) mmol/L FiO2 0.40 Sodium (137-145) mmol/L Potassium (3.4-5.1) mmol/L Chloride (98-107) mmol/L Carbon Dioxide (22-32) mmol/L BUN (7-17) mg/dL Creatinine (0.52-1.04) mg/dL Estimated GFR (>60) mL/min BUN/Creatinine Ratio (6-22) Glucose (80-110) mg/dL Hemoglobin A1c (4.0-6.0) % Lactate (0.7-2.1) mmol/L Calcium (8.4-10.2) mg/dL Total Bilirubin (0.2-1.3) mg/dL AST (14-36) IU/L ALT (<35) IU/L Alkaline Phosphatase (38-126) U/L Total Creatine Kinase (30-135) U/L CK-MB (CK-2) CK-MB (CK-2) Rel Index Troponin I (0.01-0.034) ng/mL B-Natriuretic Peptide (<100) Total Protein (6.3-8.2) g/dL Albumin (3.5-5.0) g/dL Globulin (1.7-4.1) g/dL Albumin/Globulin Ratio (1.0-2.8) Lipase (23-300) U/L Procalcitonin (<0.5) ng/mL Urine Color Urine Appearance Urine pH (4.5-8.0) Ur Specific [place] (1.000-1.035) Urine Protein (Negative) Urine Glucose (UA) (Negative) g/dL Urine Ketones (NEGATIVE) Urine Occult Blood (Negative) Urine Nitrate (Negative) Urine Bilirubin (NEGATIVE) Urine Urobilinogen (0.2) E.U./dL Ur Leukocyte Esterase (NEGATIVE) Urine RBC (0-5/HPF) Urine WBC (0-5/HPF) Amorphous Sediment Urine Bacteria (None) WBC Casts (None) Ur Culture Indicated? A. baumannii (PCR) (Not Detect) Chlamy pneumoniae PCR (Not Detect) Adenovirus (PCR) (Not Detect) B.parapertussis DNA PCR (Not Detect) Dora albicans (PCR) (Not Detect) C. glabrata (PCR) (Not Detect) C. krusei (PCR) (Not Detect) C. parapsilosis (PCR) (Not Detect) C. tropicalis (PCR) (Not Detect) Coronavirus OC43 (PCR) (Not Detect) Coronavirus HKU1 (PCR) (Not Detect) Coronavirus 229E (PCR) (Not Detect) Coronavirus NL63 (PCR) (Not Detect) Enterobacteriac sp PCR (Not Detect) E. cloacae complex PCR (Not Detect) Enterococcus sp PCR (Not Detect) E. coli (PCR) (Not Detect) H. influenzae (PCR) (Not Detect) Human Metapneumovir PCR (Not Detect) Influenza Type A (PCR) (Not Detect) Influenza Type B (PCR) (Not Detect) Klebsiella oxytoca PCR (Not Detect) Klebsiella pneumoniae (Not Detect) List. monocytogenes PCR (Not Detect) M. pneumoniae (PCR) (Not Detect) N. meningitidis (PCR) (Not Detect) Parainfluenza 1 (PCR) (Not Detect) Parainfluenza 2 (PCR) (Not Detect) Parainfluenza 3 (PCR) (Not Detect) Parainfluenza 4 (PCR) (Not Detect) Proteus species (PCR) (Not Detect) RSV (PCR) (Not Detect) Entero/Rhino (PCR) (Not Detect) Serratia marcescens PCR (Not Detect) Staphylococcus sp PCR (Not Detect) Staph aureus (PCR) (Not Detect) mecA-Methicil Res Gene (Not Detect) Streptococcus sp PCR (Not Detect) Group A Strep (PCR) (Not Detect) Strep agalactiae (PCR) (Not Detect) Strep pneumoniae (PCR) (Not Detect) P. aeruginosa (PCR) (Not Detect) Herminio/B-Vanco Res Genes KPC-Carbap Res Gene PCR Imaging Data Chest x-ray: Radiologist's Impression: PROCEDURE: XR CHEST 1V INDICATIONS: tube placement TECHNIQUE: One view of the chest was acquired. COMPARISON: None. FINDINGS: Surgical changes and devices: ET tube projects into the left mainstem bronchus and should be pulled back approximately 4-5 cm. Left chest wall Port-A-Cath. Lungs and pleura: Lungs are clear. No pleural effusions or pneumothorax. Mediastinum: Mediastinal contours appear normal. Heart size is normal. Bones and chest wall: No suspicious bony lesions. Overlying soft tissues appear unremarkable. IMPRESSION: ET tube in left mainstem bronchus and should be pulled back 4-5 cm. Dictated by: Gracy Richard MD, PhD on 10/23/2019 at 7:45 CT scan - head: Radiologist's Impression: PROCEDURE: CT HEAD/BRAIN WO CON INDICATIONS: elevated INR, decreased mental status TECHNIQUE: Noncontrast 4.5 mm thick angled axial sections acquired from the foramen magnum to the vertex, with coronal and sagittal reformats. For radiation dose reduction, the following was used: automated exposure control, adjustment of mA and/or kV according to patient size. COMPARISON: [facility], MR, BRAIN W&WO CONTRAST, 12/30/2017, 9:54. [facility], CT, HEAD WITHOUT CONTRAST, 04/19/2017, 10:43. [facility], CT, HEAD WITHOUT CONTRAST, 05/12/2017, 17:33. [facility], CT, HEAD WITHOUT CONTRAST, 09/09/2017, 12:22. [facility], CT, HEAD WITHOUT CONTRAST, 01/14/2018, 15:06. [facility], CT, CT HEAD/BRAIN WO CON, 10/21/2019, 15:11. FINDINGS: Image quality: Excellent. CSF spaces: Basal cisterns are patent. No extra-axial fluid collections. The ventricles are symmetric in size and shape. Brain: No intracranial bleeds or masses. There is cerebral volume loss for age, with resultant ventricular and sulcal prominence. There are periventricular and deep white matter chronic small vessel ischemic changes. There is intracranial internal carotid artery atherosclerosis. Skull and face: Calvarium and visualized facial bones appear intact, without suspicious lesions. Sinuses: Left-sided paranasal sinus disease is again seen. No abnormal fluid is seen within the mastoid air cells. IMPRESSION: No acute intracranial hemorrhage can be seen in this patient with this given history. Left-sided paranasal sinus disease is again incidentally noted. Dictated by: Roney Tapia M.D. on 10/23/2019 at 8:14 ECG Data Attestation: I personally reviewed and interpreted this ECG as follows: Prior ECG tracings: available for review Interpretation: Normal sinus rhythm rate 80 p.r. interval 114 QRS 130 QTC 489 MDM Narrative Medical decision making narrative: Patient is noted to be hypotensive just after intubation thought to be due to intubation meds. She is given 1 dose of push dose epinephrine blood pressure did respond also response some IV fluids Levophed initially was started but eventually turned off. Patient has minimally elevated BNP of 500 she is given 1 dose of Lasix 40 mg which she does urinate. Patient remains on vent minimally sedated with of very low propofol drip and not responding. Patient has supratherapeutic INR of 12- vitamin K given. No active bleeding at this time persistently anemic but stable. Head CT is negative. Parainfluenza virus is positive however patient's procalcitonin is elevated at over 3 normal lactic acid. I have called and spoken with the daughter who lives in [place] and is updated on patient's his condition. Dr. garcia updated patient's symptoms test results accepts patient to the ICU Discharge Plan Departure Patient Disposition: Admitted As Inpatient Clinical Impression: Parainfluenza Respiratory failure Qualifiers: Chronicity: acute Respiratory failure complication: hypoxia Qualified Code(s): J96.01 - Acute respiratory failure with hypoxia Discharge Date/Time: 10/23/19 10:00 Admit Date/Time: 10/23/19 09:26 Admit Provider: Shantel Ortiz
--- NOTE | 2019-10-23 07:06 | PC.NURSE ---
Pt was emergently intubated on arrival to ED, 150mg ketamine and 100mg Tye given IV per verbal order from Dr Vasquez. 7.5mm ETT, 23cm at teeth. Pt tolerated well BP now 64/52, 2 liters NS hanging wide open, Dr Montiel at bedside. Bedside report given to Clinton Thakur RN
--- NOTE | 2019-10-23 07:08 | DI.RAD.S_ITS ---
PROCEDURE: XR CHEST 1V INDICATIONS: tube placement TECHNIQUE: One view of the chest was acquired. COMPARISON: None. FINDINGS: Surgical changes and devices: ET tube projects into the left mainstem bronchus and should be pulled back approximately 4-5 cm. Left chest wall Port-A-Cath. Lungs and pleura: Lungs are clear. No pleural effusions or pneumothorax. Mediastinum: Mediastinal contours appear normal. Heart size is normal. Bones and chest wall: No suspicious bony lesions. Overlying soft tissues appear unremarkable. IMPRESSION: ET tube in left mainstem bronchus and should be pulled back 4-5 cm. Dictated by: Gracy Richard MD, PhD on 10/23/2019 at 7:45 Approved by: Gracy Richard MD, PhD on 10/23/2019 at 7:47
[2019-10-23 07:28] LABS: Hematocrit 26.7 % (36-46); Hemoglobin 8.7 g/dL (12.0-16.0); Mean Corpuscular HGB Conc 32.5 % (30-36); Mean Corpuscular Hemoglobin 29.9 PG (26-34); Mean Corpuscular Volume 91.9 fL (80-100); Platelet Count 157 X10^3/uL (150-400); Red Cell Distribution Width 16.5 % (11.6-14.8); White Blood Cell Count 8.8 X10^3/uL (4.5-11.0)
[2019-10-23 07:29] LABS: PTT Partial Thromboplastin Tim 58 SECONDS (26.4-36.2)
[2019-10-23 07:30] LABS: Alanine Aminotransferase 15 IU/L (<35); Albumin 2.7 g/dL (3.5-5.0); Alkaline Phosphatase 159 U/L (38-126); Aspartate Aminotransferase 26 IU/L (14-36); BUN Creatinine Ratio 32.5 (6-22); Bilirubin Total 0.9 mg/dL (0.2-1.3); Blood Urea Nitrogen 52 mg/dL (7-17); Carbon Dioxide 21 mmol/L (22-32); Chloride 109 mmol/L (98-107); Creatine Kinase 58 U/L (30-135); Estimated Glomerular Filt Rate 30.9 mL/min (>60); Globulin 2.7 g/dL (1.7-4.1); Glucose 185 mg/dL (80-110); HEMOLYSIS < 15 (0-50); Potassium 4.7 mmol/L (3.4-5.1); Sodium 141 mmol/L (137-145); Total Protein 5.4 g/dL (6.3-8.2)
[2019-10-23 07:31] LABS: Lactate (Lactic Acid) 0.9 mmol/L (0.7-2.1)
[2019-10-23] MEDS: SODIUM CHLORIDE 0.9% 970 ML IV (07:35)
[2019-10-23 07:36] LABS: Add Manual Diff / Slide Review YES
[2019-10-23] MEDS: PROPOFOL 1,000 MG/100 ML VIAL 5 MG IV (07:36)
[2019-10-23 07:42] LABS: Troponin I < 0.012 ng/mL (0.01-0.034)
[2019-10-23 07:45] LABS: Bacteria Urine None Seen; RBC Urine None Seen (0-5/HPF); WBC Urine None Seen (0-5/HPF)
[2019-10-23 07:48] LABS: Appearance Urine UA CLEAR; Bilirubin Urine UA NEGATIVE (NEGATIVE); Color Urine UA YELLOW; Glucose Urine UA NEGATIVE (Negative); Ketones Urine UA TRACE (NEGATIVE); Leukocyte Esterase Urine UA 1+ (NEGATIVE); Nitrite Urine UA NEGATIVE (Negative); Occult Blood Urine UA 2+ (Negative); Protein Urine UA 2+ (Negative); Urobilinogen Urine UA 0.2 E.U./dL (0.2)
[2019-10-23] MEDS: NOREPINEPHRINE 4 MG in DEXTROSE 5% IN WATER 250 ML 30.48 ML IV (07:52)
[2019-10-23] MEDS: CEFEPIME 2 GM in SODIUM CHLORIDE 0.9% 100 ML 200 ML IV (07:56)
[2019-10-23 08:00] LABS: B Type Natriuretic Peptide 563 (<100)
[2019-10-23 08:01] LABS: Procalcitonin 3.68 ng/mL (<0.5)
[2019-10-23 08:02] LABS: Prothrombin Time 150.3 SECONDS (10.1-12.7)
[2019-10-23 08:04] LABS: pH Urine UA 5.5 (4.5-8.0)
[2019-10-23 08:07] LABS: INR 12.3 (0.9-1.3)
[2019-10-23 08:08] LABS: Amorphous Sediment Urine 3+; Culture Indicated Urine Specimen Cultured; White Blood Cell Casts Urine 1-5/LPF
--- NOTE | 2019-10-23 08:14 | DI.CT.S_ITS ---
PROCEDURE: CT HEAD/BRAIN WO CON INDICATIONS: elevated INR, decreased mental status TECHNIQUE: Noncontrast 4.5 mm thick angled axial sections acquired from the foramen magnum to the vertex, with coronal and sagittal reformats. For radiation dose reduction, the following was used: automated exposure control, adjustment of mA and/or kV according to patient size. COMPARISON: [facility], MR, BRAIN W&WO CONTRAST, 12/30/2017, 9:54. [facility], CT, HEAD WITHOUT CONTRAST, 04/19/2017, 10:43. [facility], CT, HEAD WITHOUT CONTRAST, 05/12/2017, 17:33. [facility], CT, HEAD WITHOUT CONTRAST, 09/09/2017, 12:22. [facility], CT, HEAD WITHOUT CONTRAST, 01/14/2018, 15:06. [facility], CT, CT HEAD/BRAIN WO CON, 10/21/2019, 15:11. FINDINGS: Image quality: Excellent. CSF spaces: Basal cisterns are patent. No extra-axial fluid collections. The ventricles are symmetric in size and shape. Brain: No intracranial bleeds or masses. There is cerebral volume loss for age, with resultant ventricular and sulcal prominence. There are periventricular and deep white matter chronic small vessel ischemic changes. There is intracranial internal carotid artery atherosclerosis. Skull and face: Calvarium and visualized facial bones appear intact, without suspicious lesions. Sinuses: Left-sided paranasal sinus disease is again seen. No abnormal fluid is seen within the mastoid air cells. IMPRESSION: No acute intracranial hemorrhage can be seen in this patient with this given history. Left-sided paranasal sinus disease is again incidentally noted. Dictated by: Roney Tapia M.D. on 10/23/2019 at 8:14 Approved by: Roney Tapia M.D. on 10/23/2019 at 8:15
[2019-10-23] MEDS: FUROSEMIDE 40 MG/4 ML VIAL IV (08:16)
[2019-10-23 08:18] LABS: Neutrophils Absolute Manual 7480 /uL (3000-5900); Total Cells Counted 100
[2019-10-23 08:21] LABS: Anisocytosis 1+
[2019-10-23] MEDS: PHYTONADIONE (VIT K1) 10 MG in DEXTROSE 5 % IN WATER 50 ML 102 ML IV (08:29)
[2019-10-23 08:43] LABS: Lipase 60 U/L (23-300)
[2019-10-23 09:06] LABS: Adenovirus Not Detected (Not Detect); Bordetella pertussis Not Detected (Not Detect); Chlamydophila pneumoniae Not Detected (Not Detect); Coronavirus 229E Not Detected (Not Detect); Coronavirus HKU1 Not Detected (Not Detect); Coronavirus NL 63 Not Detected (Not Detect); Coronavirus OC43 Not Detected (Not Detect); Human Metapneumovirus Not Detected (Not Detect); Human Rhinovirus/Enterovirus Not Detected (Not Detect); Influenza A Not Detected (Not Detect); Influenza B Not Detected (Not Detect); Mycoplasma pneumoniae Not Detected (Not Detect); Parainfluenza Virus 1 Detected (Not Detect); Parainfluenza Virus 2 Not Detected (Not Detect); Parainfluenza Virus 3 Not Detected (Not Detect); Parainfluenza Virus 4 Not Detected (Not Detect); Respiratory Syncytial Virus Not Detected (Not Detect)
[2019-10-23] MEDS: VANCOMYCIN 1,500 MG/300 ML FROZ.PIGGY 200 MG IV (09:19)
[2019-10-23] MEDS: VANCOMYCIN PER PHARMACY 1 REQUEST MISC (10:00)
--- NOTE | 2019-10-23 10:14 | PC.NURSE ---
Assumed care of patient at 0720, report received from Ira Patel, Pt intubated and on ventilator. Pt was intubated immediately on arrival per report. Pt had smith inserted. 0845 attempted NG tube insertion by floor RN. Pt began bleeding from Nose. Pt suctioned. Dr Montiel notified. Per Dr Montiel no further attempts at this time.
[2019-10-23] MEDS: PROPOFOL 1,000 MG/100 ML VIAL 2.91 MG IV (11:06)
[2019-10-23] MEDS: ERTAPENEM 1 GM in SODIUM CHLORIDE 0.9% 100 ML 200 ML IV (11:07)
[2019-10-23] MEDS: ALBUTEROL/IPRATROPIUM 3 ML AMPUL INH ×4 (11:12→22:53)
--- NOTE | 2019-10-23 11:31 | PC.NURSE ---
Addendum entered by Yasemin Rodríguez R.N. 10/23/19 14:25: pt did not tolerate sedation vacation for longer than 10 minutes- and this was ended due to low tidal volumes and decreased spo2. CT OF CHEST/ABD/PELVIS COMPLETED AND WAITING FOR RESULTS- OGT PLACED AND AWAITING CONFIRMATION VIA XR Original Note: RECEIVED PT INTUBATED AND ON MECHANICAL VENT AT 30% FROM ED AT APPROX 1010- NOTED TO HAVE + RESULT FOR PARA-INFLUENZA PLACED IN DROPLET PRECAUTIONS - BLOODY NARE ( LEFT) WITH GAUZE TO TAMPONADE WELL BLOODY ORAL SECRETIONS R/T SUPRATHERAPEUTIC INR AND NG/OG PLACEMENT ATTEMPTS- DIPRIVAN AT 20MCG/KG/MIN TURNED TO OFF TO ASSESS PTS ABILITY TO BREATH AND HER MENTAL STATUS - SHE REMAINS RASS OF -3/-4 NO ATTEMPTS AT SPONTANEOUS MOVEMENT- RIDING THE VENT AT 16 BPM, HR REG AT 76, SPO2 98%, BP 109/62- BOSTON PATENT WITH GOOD DIURESIS
[2019-10-23 11:47] LABS: pH ABG 7.28 (7.35-7.45)
[2019-10-23 11:48] LABS: HCO3 ABG 17 mmol/L (22-26); Oxygen Saturation ABG 99 % (95-100); PCO2 ABG 35.7 mmHg (35-45); PO2 ABG 155 mmHg (80-100); TCO2 ABG 18 mmol/L (21-31)
[2019-10-23] MEDS: fentaNYL 100 MCG/2 ML INJ 50 MCG IV ×2 (12:14→21:12)
--- NOTE | 2019-10-23 12:29 | PM.HP.1 ---
History of Present Illness History of Present Illness Date Patient Seen: 10/23/19 Chief complaint: Respiratory distress Narrative: Lorraine Parra is an 79-year-old woman with a past medical history significant for hypertension, hyperlipidemia, hypothyroidism, longstanding history of multiple myeloma, renal cell carcinoma status post right nephrectomy 09/2008, and CKD who presented to the ED via EMS from [facility] for acute respiratory distress. The patient is intubated and sedated, therefore, HPI is unobtainable. Please see ED physician's note for all available information and HPI. Patient History Medical History Acute urinary retention (Acute) ATN (acute tubular necrosis) (Acute) Depression (Acute) History of UTI (Acute) Hypertension (Acute) Inpatient management required (Acute) Multiple myeloma (Chronic) Multiple myeloma (Acute) Nausea (Acute) Neuropathy (Acute) Pulmonary embolus (Acute) Renal cell carcinoma (Acute) UTI (urinary tract infection) due to Enterococcus (Acute) Surgical History History of cholecystectomy (Acute) History of nephrectomy, right (Acute) History of tonsillectomy (Acute) Hx of appendectomy (Acute) Family & Social History Family History Mother No problems noted. Father No problems noted. Social History: household members caregiver Prior Living Arrangements Skilled Nurse Facility Safety & Behavioral: Feels Safe in Current Unwilling to Answer Environment Tobacco & Substance use: Smoking Status Never smoker alcohol intake current alcohol intake frequency holiday/special occasion Substance Use Type does not use Meds Home Medications and Allergies Home Medications Medication Instructions Recorded Confirmed Type propranolol 160 mg PO DAILY #0 01/14/18 10/23/19 History sertraline 100 mg PO DAILY 03/30/18 10/23/19 History acetaminophen 650 mg PO Q8H 01/25/19 10/23/19 History cyanocobalamin (vitamin B-12) 1,000 mcg PO DAILY 01/25/19 10/23/19 History dexamethasone 20 mg PO QWEEK 06/29/19 10/23/19 History diclofenac sodium 1 g TOPICAL BID 06/29/19 10/23/19 History levothyroxine [Synthroid] 150 mcg PO DAILY 06/29/19 10/23/19 History ondansetron 4 mg PO Q8H PRN 06/29/19 10/23/19 History tizanidine 2 mg PO Q6H PRN 06/29/19 10/23/19 History warfarin See Rx Instructions .ROUTE .COMPLEX 06/29/19 10/23/19 History guaifenesin [Mucus Relief ER] 600 mg PO Q12HR PRN #15 tab 09/10/19 10/23/19 Rx Lactobacillus acidophilus 10 mg PO DAILY 10/21/19 10/23/19 History [Acidophilus] acyclovir 800 mg PO DAILYX7 10/21/19 10/23/19 History gabapentin 300 mg PO TID 10/21/19 10/23/19 History guaifenesin [Tussin Expectorant] 200 mg PO Q6HR PRN 10/21/19 10/23/19 History ipratropium bromide 1 spray INTRANASAL BID 10/21/19 10/23/19 History melatonin 6 mg PO BEDTIME 10/21/19 10/23/19 History omeprazole 20 mg PO DAILY 10/21/19 10/23/19 History oxycodone-acetaminophen [Percocet] 2 tab PO Q6H PRN 10/21/19 10/23/19 History polyvinyl alcohol 1 drp OPHTHALMIC (EYE) Q4HR PRN 10/21/19 10/23/19 History warfarin See Rx Instructions .ROUTE .COMPLEX 10/21/19 10/23/19 History multivitamin with minerals 1 tab PO DAILY 10/23/19 10/23/19 History oxycodone 20 mg PO Q6H PRN 10/23/19 10/23/19 History Allergies Allergy/AdvReac Type Severity Reaction Status Date / Time morphine Allergy Severe STROKE Verified 06/29/19 13:07 LIKE SYMPTOMS levofloxacin Allergy Intermediate HIVES Verified 06/29/19 13:07 adhesive [ADHESIVE] Allergy Mild BLISTERS Verified 06/29/19 13:07 celecoxib Allergy Mild RASH, Verified 06/29/19 13:07 SMALL BLISTERS, NAUSEA Penicillins Allergy Mild RASH Verified 06/29/19 13:07 phenazopyridine Allergy Mild VOMITING Verified 06/29/19 13:07 [From PYRIDIUM] Sulfa (Sulfonamide Allergy Mild BLISTERS Verified 06/29/19 13:07 Antibiotics) lactose [LACTOSE] Allergy Unknown Verified 06/29/19 13:07 Review of Systems Review of Systems Narrative: Review of systems is unobtainable as patient is intubated and sedated. Exam Vital Signs (past 8 hours): - 10/23/19 06:45 10/23/19 07:00 10/23/19 07:01 Temperature 99.1 F Pulse Rate 86 81 81 Respiratory Rate 12 32 H Blood Pressure 106/61 Blood Pressure [Left Arm] 106/61 69/44 L Pulse Oximetry 97 99 94 10/23/19 07:11 10/23/19 07:15 10/23/19 07:30 Temperature Pulse Rate 87 87 85 Respiratory Rate 16 18 16 Blood Pressure Blood Pressure [Left Arm] 64/52 L 93/59 L 91/60 Pulse Oximetry 100 100 99 10/23/19 07:45 10/23/19 08:00 10/23/19 08:10 Temperature Pulse Rate 82 81 84 Respiratory Rate 17 18 16 Blood Pressure Blood Pressure [Left Arm] 83/58 L 128/78 Pulse Oximetry 100 100 10/23/19 08:15 10/23/19 08:30 10/23/19 08:45 Temperature Pulse Rate 81 83 85 Respiratory Rate 18 19 21 Blood Pressure Blood Pressure [Left Arm] 118/72 120/71 137/75 Pulse Oximetry 100 100 100 10/23/19 09:00 10/23/19 09:15 10/23/19 09:30 Temperature Pulse Rate 83 83 86 Respiratory Rate 20 16 16 Blood Pressure Blood Pressure [Left Arm] 125/71 114/68 Pulse Oximetry 99 100 98 10/23/19 09:45 10/23/19 09:52 10/23/19 09:55 Temperature Pulse Rate 83 84 85 Respiratory Rate 16 16 16 Blood Pressure Blood Pressure [Left Arm] 96/58 L 108/64 117/63 Pulse Oximetry 98 95 94 10/23/19 10:18 10/23/19 11:04 10/23/19 12:00 Temperature 97.9 F 97.5 F L Pulse Rate 84 76 88 Respiratory Rate 16 16 16 Blood Pressure 123/62 104/59 L 144/82 H Blood Pressure [Left Arm] Pulse Oximetry 100 100 99 Fraction of Inspired Oxygen 30 Oxygen Delivery Method Mechanical Ventilation Oxygen Flow Rate 100 Narrative Exam Narrative: General: Elderly female lying in bed and in no acute distress, intubated and sedated. HEENT: Normocephalic, atraumatic. External ears without defect. Pupils equal, round, and reactive to light. Anicteric sclerae and moist conjunctivae. ET and OG tube in place. Neck: Supple with full range of motion. No jugular venous distension. No lymphadenopathy or thyromegaly. Cardiovascular: Regular rate and rhythm without murmurs, rubs, or gallops appreciated. Port-A-Cath in left chest without surrounding erythema. Pulmonary: Coarse lung sounds throughout in anterior lung christianson bilaterally. No wheeze or crackles. Passive respirations on ventilator. Abdomen: Soft, bowel sounds present, nondistended. No hepatosplenomegaly or masses appreciated. Extremities: No clubbing, cyanosis, or edema. Skin: Normal temperature, turgor, and texture; no ulcers or subcutaneous nodules appreciated. Several small circular lesions on right chest possibly shingles? that are healing with no open breaks in skin. Neurological: Intubated and sedated. When sedation is lightened patient follows commands and seems appropriate. Ventilator settings: PRVC: TV 450, RR 16, PEEP 5, FiO2 0.30 with SpO2 95%. ABG: pH 7.28, pCO2 36, PO2 155, HC03 17, FiO2 0.4 with SpO2 99%. IV lines: Left peripheral IV, Left Port-A-Cath, Lehman catheter. Objective Labs Result Diagrams: 10/23/19 07:05 10/23/19 07:05 Labs: Laboratory Results - last 24 hr 10/23/19 10/23/19 10/23/19 07:05 07:05 07:05 WBC 8.8 RBC 2.90 L Hgb 8.7 L Hct 26.7 L MCV 91.9 MCH 29.9 MCHC 32.5 RDW 16.5 H Plt Count 157 Neut % (Auto) Not Reportable Lymph % (Auto) Not Reportable [place] % (Auto) Not Reportable Eos % (Auto) Not Reportable Baso % (Auto) Not Reportable Lymph # (Auto) Not Reportable [place] # (Auto) Not Reportable Baso # (Auto) Not Reportable Total Counted 100 Seg Neutrophils % 73.0 H Band Neutrophils % 12.0 H Lymphocytes % (Manual) 4.0 L Atypical Lymphs % 1.0 H Monocytes % (Manual) 8.0 Metamyelocytes % 1.0 H Myelocytes % 1.0 H Neutrophils # (Manual) 7480 H RBC Morphology See below Anisocytosis 1+ H PT INR APTT ABG pH ABG pCO2 ABG pO2 ABG HCO3 ABG Total CO2 ABG O2 Saturation ABG Base Excess FiO2 Sodium 141 Potassium 4.7 Chloride 109 H Carbon Dioxide 21 L BUN 52 H Creatinine 1.60 H Estimated GFR 30.9 L BUN/Creatinine Ratio 32.5 H Glucose 185 H Lactate Calcium 7.0 L Total Bilirubin 0.9 AST 26 ALT 15 Alkaline Phosphatase 159 H Total Creatine Kinase CK-MB (CK-2) CK-MB (CK-2) Rel Index Troponin I B-Natriuretic Peptide Total Protein 5.4 L Albumin 2.7 L Globulin 2.7 Albumin/Globulin Ratio 1.0 Lipase Procalcitonin 3.68 H Urine Color Urine Appearance Urine pH Ur Specific Corder Urine Protein Urine Glucose (UA) Urine Ketones Urine Occult Blood Urine Nitrate Urine Bilirubin Urine Urobilinogen Ur Leukocyte Esterase Urine RBC Urine WBC Amorphous Sediment Urine Bacteria WBC Casts Ur Culture Indicated? Nasal Screen MRSA (PCR) Chlamy pneumoniae PCR Adenovirus (PCR) B.parapertussis DNA PCR Coronavirus OC43 (PCR) Coronavirus HKU1 (PCR) Coronavirus 229E (PCR) Coronavirus NL63 (PCR) Human Metapneumovir PCR Influenza Type A (PCR) Influenza Type B (PCR) M. pneumoniae (PCR) Parainfluenza 1 (PCR) Parainfluenza 2 (PCR) Parainfluenza 3 (PCR) Parainfluenza 4 (PCR) RSV (PCR) Entero/Rhino (PCR) 10/23/19 10/23/19 10/23/19 07:05 07:05 07:05 WBC RBC Hgb Hct MCV MCH MCHC RDW Plt Count Neut % (Auto) Lymph % (Auto) [place] % (Auto) Eos % (Auto) Baso % (Auto) Lymph # (Auto) [place] # (Auto) Baso # (Auto) Total Counted Seg Neutrophils % Band Neutrophils % Lymphocytes % (Manual) Atypical Lymphs % Monocytes % (Manual) Metamyelocytes % Myelocytes % Neutrophils # (Manual) RBC Morphology Anisocytosis PT INR APTT ABG pH ABG pCO2 ABG pO2 ABG HCO3 ABG Total CO2 ABG O2 Saturation ABG Base Excess FiO2 Sodium Potassium Chloride Carbon Dioxide BUN Creatinine Estimated GFR BUN/Creatinine Ratio Glucose Lactate 0.9 Calcium Total Bilirubin AST ALT Alkaline Phosphatase Total Creatine Kinase 58 CK-MB (CK-2) TNP CK-MB (CK-2) Rel Index TNP Troponin I < 0.012 B-Natriuretic Peptide 563 H Total Protein Albumin Globulin Albumin/Globulin Ratio Lipase Procalcitonin Urine Color Urine Appearance Urine pH Ur Specific Corder Urine Protein Urine Glucose (UA) Urine Ketones Urine Occult Blood Urine Nitrate Urine Bilirubin Urine Urobilinogen Ur Leukocyte Esterase Urine RBC Urine WBC Amorphous Sediment Urine Bacteria WBC Casts Ur Culture Indicated? Nasal Screen MRSA (PCR) Chlamy pneumoniae PCR Adenovirus (PCR) B.parapertussis DNA PCR Coronavirus OC43 (PCR) Coronavirus HKU1 (PCR) Coronavirus 229E (PCR) Coronavirus NL63 (PCR) Human Metapneumovir PCR Influenza Type A (PCR) Influenza Type B (PCR) M. pneumoniae (PCR) Parainfluenza 1 (PCR) Parainfluenza 2 (PCR) Parainfluenza 3 (PCR) Parainfluenza 4 (PCR) RSV (PCR) Entero/Rhino (PCR) 10/23/19 10/23/19 10/23/19 07:05 07:05 07:14 WBC RBC Hgb Hct MCV MCH MCHC RDW Plt Count Neut % (Auto) Lymph % (Auto) [place] % (Auto) Eos % (Auto) Baso % (Auto) Lymph # (Auto) [place] # (Auto) Baso # (Auto) Total Counted Seg Neutrophils % Band Neutrophils % Lymphocytes % (Manual) Atypical Lymphs % Monocytes % (Manual) Metamyelocytes % Myelocytes % Neutrophils # (Manual) RBC Morphology Anisocytosis PT 150.3 H D INR 12.3 H* APTT 58 H D ABG pH ABG pCO2 ABG pO2 ABG HCO3 ABG Total CO2 ABG O2 Saturation ABG Base Excess FiO2 Sodium Potassium Chloride Carbon Dioxide BUN Creatinine Estimated GFR BUN/Creatinine Ratio Glucose Lactate Calcium Total Bilirubin AST ALT Alkaline Phosphatase Total Creatine Kinase CK-MB (CK-2) CK-MB (CK-2) Rel Index Troponin I B-Natriuretic Peptide Total Protein Albumin Globulin Albumin/Globulin Ratio Lipase 60 D Procalcitonin Urine Color Urine Appearance Urine pH Ur Specific Corder Urine Protein Urine Glucose (UA) Urine Ketones Urine Occult Blood Urine Nitrate Urine Bilirubin Urine Urobilinogen Ur Leukocyte Esterase Urine RBC Urine WBC Amorphous Sediment Urine Bacteria WBC Casts Ur Culture Indicated? Nasal Screen MRSA (PCR) Chlamy pneumoniae PCR Not detected Adenovirus (PCR) Not detected B.parapertussis DNA PCR Not detected Coronavirus OC43 (PCR) Not detected Coronavirus HKU1 (PCR) Not detected Coronavirus 229E (PCR) Not detected Coronavirus NL63 (PCR) Not detected Human Metapneumovir PCR Not detected Influenza Type A (PCR) Not detected Influenza Type B (PCR) Not detected M. pneumoniae (PCR) Not detected Parainfluenza 1 (PCR) Detected H Parainfluenza 2 (PCR) Not detected Parainfluenza 3 (PCR) Not detected Parainfluenza 4 (PCR) Not detected RSV (PCR) Not detected Entero/Rhino (PCR) Not detected 10/23/19 10/23/19 10/23/19 07:23 08:12 10:30 WBC RBC Hgb Hct MCV MCH MCHC RDW Plt Count Neut % (Auto) Lymph % (Auto) [place] % (Auto) Eos % (Auto) Baso % (Auto) Lymph # (Auto) [place] # (Auto) Baso # (Auto) Total Counted Seg Neutrophils % Band Neutrophils % Lymphocytes % (Manual) Atypical Lymphs % Monocytes % (Manual) Metamyelocytes % Myelocytes % Neutrophils # (Manual) RBC Morphology Anisocytosis PT INR APTT ABG pH 7.28 L* ABG pCO2 35.7 ABG pO2 155 H ABG HCO3 17 L ABG Total CO2 18 L ABG O2 Saturation 99 ABG Base Excess -10.0 L FiO2 0.40 Sodium Potassium Chloride Carbon Dioxide BUN Creatinine Estimated GFR BUN/Creatinine Ratio Glucose Lactate Calcium Total Bilirubin AST ALT Alkaline Phosphatase Total Creatine Kinase CK-MB (CK-2) CK-MB (CK-2) Rel Index Troponin I B-Natriuretic Peptide Total Protein Albumin Globulin Albumin/Globulin Ratio Lipase Procalcitonin Urine Color Yellow Urine Appearance Clear Urine pH 5.5 Ur Specific Corder 1.010 Urine Protein 2+ H Urine Glucose (UA) Negative Urine Ketones Trace H Urine Occult Blood 2+ H Urine Nitrate Negative Urine Bilirubin Negative Urine Urobilinogen 0.2 Ur Leukocyte Esterase 1+ H Urine RBC None seen Urine WBC None seen Amorphous Sediment 3+ Urine Bacteria None seen WBC Casts 1-5/lpf H Ur Culture Indicated? Specimen cultured Nasal Screen MRSA (PCR) Positive for mrsa H Chlamy pneumoniae PCR Adenovirus (PCR) B.parapertussis DNA PCR Coronavirus OC43 (PCR) Coronavirus HKU1 (PCR) Coronavirus 229E (PCR) Coronavirus NL63 (PCR) Human Metapneumovir PCR Influenza Type A (PCR) Influenza Type B (PCR) M. pneumoniae (PCR) Parainfluenza 1 (PCR) Parainfluenza 2 (PCR) Parainfluenza 3 (PCR) Parainfluenza 4 (PCR) RSV (PCR) Entero/Rhino (PCR) Assessment & Plan Assessment & Plan narrative: Lorraine Parra is an 78-year-old woman with a past medical history significant for hypertension, hyperlipidemia, hypothyroidism and a longstanding history of multiple myeloma who was directly admitted from Dr. Rousseau's office for worsening cough thought to have probable pneumonia and mildly altered mental status. 1. Acute sepsis, present on admission. Resolved. -Patient met sepsis criteria with end-organ dysfunction acute hypoxemic respiratory failure and infectious source pneumonia and possible UTI. -Early goal-directed therapy met including: IV fluid resuscitation and broad-spectrum antibiotics. -Patient received norepinephrine for short period of time due to medication induced hypotension from propofol and furosemide. Patient did not have septic shock. 2. Acute hypoxemic respiratory failure, present on admission. Active. -Patient presented in acute respiratory distress with hypoxemia and tachypnea per EMS and ED physician on CPAP which was ineffective and she was subsequently intubated. -Continue current ventilator settings and perform ABG as necessary to adjust ventilator settings. -Plan to perform daily sedation vacation and pressure support/spontaneous breathing trial to wean off ventilator. 3. Acute parainfluenza with superimposed bacterial pneumonia, present on admission. Active. -Chest x-ray did not demonstrate any acute cardiopulmonary process. -CTA chest demonstrated bibasilar pneumonia L>R. -WBC 8.8 with 12% bands and procalcitonin 3.68. Continue to monitor WBC and procalcitonin daily. -Ordered complete pneumonia workup including: Respiratory viral PCR positive for parainfluenza 1. Strep pneumoniae and Legionella urine antigens, pending. Sputum culture, pending. Blood culture x2, pending. -Received cefepime 2 g IV x1 and vancomycin with dosing per pharmacist in ED. Continue vancomycin with dosing per pharmacist and started ertapenem 1 g every 24 hours as patient has history of ESBL UTI and pneumonia is considered healthcare associated pneumonia as she is currently in a assisted facility and was hospitalized less than 90 days ago. 4. Possible UTI, present on admission. Active. -Urinalysis appears possibly infected with urine culture pending. -Continue antibiotics as above pending urine culture identification and sensitivities. 5. 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 Active. -Etiology of INR elevation is unclear but likely due to recent antibiotic administration with ciprofloxacin. -Initial INR 12.3. Patient previously had elevated INR of 7.7 on 10/21 and was instructed by ED physician to discontinue warfarin until INR was within therapeutic range. Received vitamin K 10 mg IV x 1 in ED. -Initial hemoglobin 8.7. Patient is hemodynamically stable with no overt bleeding other than from knows where NG tube insertion was attempted. -Continue to monitor INR and CBC daily and will plan to restart warfarin once INR is therapeutic. -Ordered CT chest, abdomen and pelvis with contrast to rule out any hemorrhage, pending. 6. Multiple myeloma, present on admission. Stable. -Patient is followed by Dr. Rousseau of oncology. -Disease progression has been indolent for years but more recently has been progressive. -Discussed patient with her oncologist Dr. Rousseau who relays that the patient is supposed to be on weekly Velcade with plans to start daratumumab to help control disease progression. However, the patient is somewhat resistant to IV chemotherapy and cancelled her last appointment on 09/20 and wanted to reschedule an appointment with Dr. Rousseau to discuss treatment options again as she was having second thoughts about IV chemotherapy. -Continue acyclovir 800 mg daily for Herpes Zoster prophylaxis and appears she may have had a recent flare. 7. Chronic kidney disease stage III, present on admission. Stable. -Patient is status post right nephrectomy for renal cell carcinoma. -Initial creatinine 1.6. Baseline creatinine 1.2-1.6. -Avoid nephrotoxic agents and optimize renal perfusion. Patient received IV contrast for CT chest, abdomen and pelvis as above. -Continue to monitor renal function daily. 8. Hypertension, chronic, present on admission. Stable. -Continue propranolol 160 mg daily. 9. Hypothyroidism, chronic, present on admission. Stable. -Continue levothyroxine 150 mcg daily. 10. Peripheral neuropathy, present on admission. Stable. -Continue gabapentin 300 mg three times daily. Patient is also on tizanidine 2 mg every 6 hours as needed as an outpatient. 11. Depression, chronic, present on admission. Stable. -Continue sertraline 100 mg daily. 12. GERD, chronic, present on admission. Stable. -Continue Protonix 40 mg IV daily. 13. History of renal cell carcinoma. -She had right nephrectomy 09/2008 for renal cell carcinoma, high grade, papillary, with chronic renal insufficiency. Code status: Limited code with no intubation based on most current POLST 09/12/19. VTE prophylaxis: Contraindicated as patient has supratherapeutic INR on warfarin GI prophylaxis: PPI Critical care time spent: 90 minutes Patient is admitted under inpatient status with expected length of stay greater than 2 midnights due to severity of presenting symptoms, risk of adverse event, and complexity of treatment plan. Quality VTE Deep Vein Thrombosis/Pulmonary Embolism Present on Admission: No
--- NOTE | 2019-10-23 13:05 | DI.CT.S_ITS ---
PROCEDURE: CT ANGIO CHEST INDICATIONS: intub, hypoxemic resp failure, viral pneumonia, h/o PE TECHNIQUE: After the administration of intravenous contrast, 2 mm thick sections acquired from the pulmonary apices to the posterior costophrenic angles. 3-dimensional maximum intensity projection (MIP) coronal and sagittal reformats were then acquired through the thorax. For radiation dose reduction, the following was used: automated exposure control, adjustment of mA and/or kV according to patient size. COMPARISON: Outside Film, CT, CT CHEST WITHOUT CONTRAST, 01/18/2019, 5:13. FINDINGS: Image quality: Excellent. Pulmonary arteries: Pulmonary arteries are normal in size, and demonstrate no intraluminal filling defects to suggest central pulmonary embolism. Lungs and pleura: The there is a new cyst within the right anterior lung base measuring 9 mm. The 5 mm diameter nodule within the left upper lobe posteriorly is not significantly changed. There is mild left greater than right dependent bibasilar atelectasis versus pneumonia. There is a new, 7 mm diameter nodule within the posterior aspect of the right middle lobe. There is a pain new, 7 mm I'm or nodule within the right upper lobe posteriorly. No pleural effusions or pneumothorax. Central and peripheral airways are patent. Mediastinum: Heart size is enlarged, without pericardial effusion. There is calcification of the coronary vasculature. Left-sided SVC. No mediastinal or hilar adenopathy. Thoracic aorta is normal in caliber and enhancement. Esophagus is normal in caliber, without hiatal hernia. Bones and chest wall: Multiple lytic and sclerotic foci within the visualized osseous structures, as before. Left chest wall shaniqua catheter is present, tip of which extends into the coronary sinus via the left persistent SVC, as before. Ribs and thoracic spine appear intact throughout. Thyroid gland is is within normal limits. No axillary or supraclavicular adenopathy. Abdomen: Visualized portions of the upper abdomen demonstrate a decompressed stomach. There is possible thickening of the gastric antrum, which demonstrates mild surrounding fat stranding. IMPRESSION: 1. No evidence of pulmonary embolus. 2. Cardiomegaly. Coronary artery disease. 3. Left greater than right bibasilar atelectasis versus pneumonia. 4. New right lung pulmonary nodules; followup is recommended as below. 5. Findings suggestive of gastric antral thickening/inflammation here this could be further assessed with endoscopy, if clinically indicated. 6. Coronary artery disease. Cardiomegaly. 7. Multiple osseous lesions consistent with multiple myeloma. 8. Left-sided superior vena cava. Left-sided portacatheter extends into the left superior vena cava, and terminates within the coronary sinus. Fleischner Society criteria for SOLID lung nodule followup. Nodule size (mm)Low-risk patientHigh-risk patient<6 (single or multiple)No routine followup.Optional CT at 12 months. 6-8 (single or multiple)CT at 6-12 months, then optional CT at 18-24 mo.CT at 6-12 months, then CT at 18-24 months. >8 (single)CT, PET-CT, or biopsy at 3 months. Same as for low-risk pts. >8 (multiple)CT at 3-6 months, then optional CT at 18-24 mo.CT at 3-6 months, then CT at 18-24 months. Recommendations do not apply to lung cancer screening, patients with immunosuppression, or patients with known primary cancer. Dictated by: Saida Lozada M.D. on 10/23/2019 at 13:11 Approved by: Saida Lozada M.D. on 10/23/2019 at 13:21
--- NOTE | 2019-10-23 13:05 | DI.CT.S_ITS ---
PROCEDURE: CT ABDOMEN PELVIS W CON INDICATIONS: metabolic acidosis, supratherpeutic INR, r/o abd inf/process TECHNIQUE: After the administration of intravenous contrast, 5 mm thick sections acquired from the diaphragm to the symphysis. 5 mm coronal and sagittal reformats were acquired. For radiation dose reduction, the following was used: automated exposure control, adjustment of mA and/or kV according to patient size. COMPARISON: [facility], CT, ABDOMEN/PELVIS WITH CONTRAST, 01/29/2016, 17:39. FINDINGS: Image quality: Excellent. ABDOMEN: Lung bases: Patchy bibasilar atelectasis. Heart size is normal. Solid organs: Liver is normal in size and enhancement. Gallbladder is again noted to be surgically absent. Biliary ductal dilatation has developed since the prior study. No obstructing pancreatic lesion. Pancreas enhances normally. Spleen is normal in size and enhancement. No adrenal nodules. Remote right nephrectomy. Tiny left upper pole stone. Left kidney enhances normally without hydronephrosis. Peritoneum and bowel: Bowel loops demonstrate normal wall thickness and caliber. No free fluid or air. Nodes and vessels: No retroperitoneal or mesenteric adenopathy by size criteria. Aorta and inferior vena cava are normal in size. Advanced atherosclerotic calcifications. The left psoas muscle is expanded, it contained an acute left psoas muscle hematoma. Miscellaneous: No ventral hernias. PELVIS: Genitourinary: Development of bladder wall thickening and air in the bladder. There is a tiny amount of free air adjacent to the right anterior base of the bladder. Miscellaneous: No inguinal hernias or adenopathy. Remote hysterectomy. Bones: Numerous lytic bone lesions consistent with a probable diagnosis of multiple myeloma, with large lytic lesions involving the right posterior vertebral body and right lamina of T11, as well as the posterior two thirds of the L1 vertebral body with loss of the posterior wall of the vertebra, as well as a large anterior lytic lesion of L4. For the most part, these lesions are stable. However, there is a suggestion of possible soft tissue extending posteriorly into the epidural space behind L1. The Other small lesions are also present. There is a pathologic compression fracture of the inferior endplate of L3, not previously present. A expansile lytic lesion of the left iliac bone is again noted. A pathologic fracture of the left iliac wing has developed. There is significant interval progression of lytic disease involving the medial left iliac bone. Interval development of a left acetabular lytic lesion. A lytic lesion of the left femoral neck is slightly progressed. IMPRESSION: 1. Interval progression of the diffuse lytic bone process, most likely representing multiple myeloma. 2. Of note, the large L1 lytic lesion may now contain associated soft tissue component extending into the spinal canal. 3. Development of a pathologic inferior endplate compression of L3. 4. The left acetabulum is now involved with a lytic lesion, and may potentially develop a pathologic fracture. 5. Slight interval increase in the size of a lytic left femoral neck lesion, increasing the risk of a pathologic femoral neck fracture. 6. Question relatively small left psoas muscle hematoma. 7. Development of bladder wall thickening and air in the bladder. In the absence of recent instrumentation, findings might indicate bacterial cystitis. 8. There is a tiny amount of free air adjacent to the right anterior base of the bladder. Dictated by: John Reynolds M.D. on 10/23/2019 at 13:59 Approved by: John Reynolds M.D. on 10/23/2019 at 14:24
--- NOTE | 2019-10-23 14:17 | DI.RAD.S_ITS ---
PROCEDURE: XR CHEST 1V INDICATIONS: verify oral-gastric tube placement TECHNIQUE: One view of the chest was acquired. COMPARISON: [facility], CT, CT ANGIO CHEST, 10/23/2019, 12:42. [facility], CR, XR CHEST 1V, 10/23/2019, 7:13. FINDINGS: Surgical changes and devices: Enteric tube is seen with the tip projecting in the distal stomach. Left chest port is unchanged projecting in persistent left SVC. Endotracheal tube repositioned with the tip now projecting 5 cm above the juan. Lungs and pleura: Bilateral lower lobe patchy ill-defined opacities. Retrocardiac opacities appear increased. No pleural effusions or pneumothorax. Mediastinum: Mediastinal contours appear normal. Heart size is normal. Bones and chest wall: No suspicious bony lesions. Overlying soft tissues appear unremarkable. Bilateral rib fractures IMPRESSION: Enteric tube with the tip projecting in the distal stomach Interval development of mild bibasilar scattered atelectasis versus aspiration Dictated by: Ace Echevarria M.D. on 10/23/2019 at 14:38 Approved by: Ace Echevarria M.D. on 10/23/2019 at 15:04
--- NOTE | 2019-10-23 15:29 | DIET.PN ---
Addendum entered by Heaven Kovacs 10/24/19 10:20: Pt became hemodynamically unstable overnight c MAP<60. Will hold any nutrition support until stable and if per updated POLST. Original Note: Dietary Progress Note Assessment: 79y F positive for parainfluenza admitted for respiratory distress referred to nutrition for enteral nutrition reccs if continuing ventilator on 10/24/19. Pt is weight stable for past 3mo per hospital records, rehabbing at care center where she receives all meals, BMI 35.3. Risk for refeeding is low because of these factors. Pt has OG placed. Goal kcal and PRO levels are low r/t CKD, having one kidney, and per permissive underfeeding. Nutrition Diagnosis: Inadequate oral intake r/t inability to consume PO nourishments aeb pt on ventilator, sedation vacation unsuccessful after 10min. Interventions: Patient Metrics Height: 64 in [place] body weight: 54.7 kg (70% above IBW) Actual body weight: 93.2 kg BMI: 35.1 kg/m2 (NHLBI status - Obesity Class II) Nutritional dosing weight: 64.3 kg Nutritional Requirements Goal kcal/k kcal/kg Goal protein/k.8 gm/kg Fluid restriction: None Enteral Nutrition Recommendations Jevity (1.2 Jesus) continuous at 40 mL/hr - Start at 20 mL/hr, titrate by 10 mL/hr every 6 hours to goal - 250 mL free water flushes every 4 hours (62.5 mL/hr) - Provides 1152 kcal (18 kcal/kg) and 53 gm (0.8 gm/kg) of protein - Enteral feed and flushes provide 2275 mL (35 mL/kg) of free water Nutritional Monitor Parameters - Elevate head of bed 30-45 degrees while feeding - Check gastric residuals every 4 hours when initiating feeding. May check every 6-8 hours once goal rate is achieved - Hold gastric feeds for residuals more than 500 mL. Avoid holding feeds for residuals < 500 mL without other signs of intolerance Diet Order: NPO EER: 1500kcal, 56g PRO (0.8g/kg per renal), 2.3L fluids Monitoring/Evaluations: formula tolerance, diet advancement
[2019-10-23 16:48] LABS: Fractionated Inspired Oxygen 30; HCO3 ABG 13 mmol/L (22-26); Oxygen Saturation ABG 97 % (95-100); PCO2 ABG 26.7 mmHg (35-45); PO2 ABG 105 mmHg (80-100); TCO2 ABG 14 mmol/L (21-31); pH ABG 7.29 (7.35-7.45)
--- NOTE | 2019-10-23 16:49 | PC.NURSE ---
Addendum entered by Yaima Nicholas R.N. 10/23/19 22:52: BP 83/48 (60). 500 cc bolus complete. Sats 95% on FiO2 of 30. RT called. Giving neb now. Pt repositioned. Plan: IVF at a total of 125cc/hr. Maintain MAPS >60- notify MD. ABG at midnight. Addendum entered by Yaima Nicholas R.N. 10/23/19 21:58: PT BP 80/41. 500cc NS bolus infusing. [employer] aware. Sats 93%, increased FiO2 from 25% to 30% with increase of sats to 96%. Addendum entered by Yaima Nicholas R.N. 10/23/19 21:34: BP 85/43 (59) post 25mcg IV Fentanyl given. Will not administer last half of dose. [employer]ER aware of BP. Will recheck in 15 min. Propofol at 5mcg. Addendum entered by Yaima Nicholas R.N. 10/23/19 21:21: 50mcg IV Fentanyl given to patient. Propofol decreased to 5mcg/min. FiO2 decreased to 25%. Glucose 294- covered with new sliding scale. Suctioned- yellow sputum resulting. Pt repositioned, wincing a bit and shaking head no when turned and boosted up in bed. Addendum entered by Yaima Nicholas R.N. 10/23/19 19:47: BP 84/48- Propofol titrated dwon from 15mcg to 10mcg/kg/min. Pt comfortable, sleeping, HR 90 SR, R 17. Turning Q2hrs. Bld Culture results positive for Staph, pending sensitivities. Daughter Jenna updated and comforted on phone earlier. Verbalized understanding of the situation. Requested call from MD to update on prognosis. Addendum entered by Yaima Nicholas R.N. 10/23/19 17:29: PICC line being placed bedside. Daughter Gracie aware and gave verbal consent over phone. Propanolol held for soft SBP 80/90s. MD aware. SCDs on placed on pt. Original Note: Pt intubated, satting 97% on PRVC. 30% RR 16 TV 450 PEEP 5. Lung sounds coarse, HOB 45. Turning q2hrs, mouth care and suction completed at 1600. Two PIV infiltrated, Propofol at 20mc changed to portacath and MD ordering for Midline/PICC now for additional access to facilitate IV Abx. Pt alert and able to follow commands, open eyes to voice. Shakes head no for pain assessment. ABG completed now.
[2019-10-23 17:14] LABS: Hemoglobin A1C% w Est Avg Glu 7.9 % (4.0-6.0)
[2019-10-23] MEDS: ACYCLOVIR 400 MG TABLET 800 MG PO (17:16)
[2019-10-23] MEDS: SERTRALINE 50 MG TABLET 100 MG PO (17:18)
[2019-10-23] MEDS: GABAPENTIN 300 MG CAPSULE PO ×2 (17:18→21:01)
[2019-10-23] MEDS: PROPOFOL 1,000 MG/100 ML VIAL 12 MG IV (17:19)
--- NOTE | 2019-10-23 17:40 | DI.RAD.S_ITS ---
PROCEDURE: XR CHEST FOR PICC 1V INDICATIONS: line placement TECHNIQUE: One view of the chest was acquired. COMPARISON: [facility], CR, XR CHEST 1V, 10/23/2019, 14:25. [facility], CR, XR CHEST 1V, 10/23/2019, 7:13. CT pulmonary angiogram the 10/23/2019. FINDINGS: Surgical changes and devices: New right-sided PICC line with the catheter tip at the lower third of the SVC. Left-sided port with the catheter tip coursing along the left mediastinum and the tip remaining in the coronary sinus within a persistent left SVC. Endotracheal tube tip terminating in the mid trachea. Enteric tube coursing into the stomach. Lungs and pleura: Mild bibasilar hazy opacity. No pleural effusions or pneumothorax. Mediastinum: Mediastinal contours appear normal. Heart size is normal. Bones and chest wall: No suspicious bony lesions. Overlying soft tissues appear unremarkable. IMPRESSION: New right-sided PICC with the catheter tip in the lower third of the SVC. No pneumothorax. Dictated by: Tre Corona M.D. on 10/23/2019 at 18:05 Approved by: Tre Corona M.D. on 10/23/2019 at 18:08
[2019-10-23 19:40] LABS: Enterococcus species Not Detected (Not Detect); Listeria monocytogenes Not Detected (Not Detect)
[2019-10-23 19:41] LABS: Methicillin-resistant gene Detected (Not Detect); Staphylococcus species Detected (Not Detect)
[2019-10-23 19:42] LABS: Acinetobacter baumannii Not Detected (Not Detect); Candida albicans Not Detected (Not Detect); Candida glabrata Not Detected (Not Detect); Candida krusei Not Detected (Not Detect); Candida parapsilosis Not Detected (Not Detect); Candida tropicalis Not Detected (Not Detect); E. coli Not Detected (Not Detect); Enterobacter cloacae complex Not Detected (Not Detect); Enterobacteriaceae species Not Detected (Not Detect); Haemophilus influenzae Not Detected (Not Detect); Neisseria meningitidis Not Detected (Not Detect); Proteus species Not Detected (Not Detect); Pseudomonas aeruginosa Not Detected (Not Detect); Serratia marcescens Not Detected (Not Detect); Streptococcus agalactiae (Gr B Not Detected (Not Detect); Streptococcus pneumonia Not Detected (Not Detect); Streptococcus pyogenes (Gr A) Not Detected (Not Detect); Streptococcus species Not Detected (Not Detect)
[2019-10-23] MEDS: INSULIN ASPART 100 UNIT/ML INSULN PEN SUBCUT (21:08)
[2019-10-23] MEDS: SODIUM CHLORIDE 0.9% 500 ML 1000 ML IV (22:02)
[2019-10-24] VITALS (35 sets, daily range): BP systolic 81–171; BP diastolic 38–73; PULSE 84–98; RESP 16–28; TEMP 29.4–37.4; O2SAT 94–99
[2019-10-24 00:57] LABS: Fractionated Inspired Oxygen 30; HCO3 ABG 13 mmol/L (22-26); Oxygen Saturation ABG 96 % (95-100); PCO2 ABG 24.7 mmHg (35-45); PO2 ABG 86 mmHg (80-100); TCO2 ABG 14 mmol/L (21-31); pH ABG 7.34 (7.35-7.45)
[2019-10-24] MEDS: ALBUTEROL/IPRATROPIUM 3 ML AMPUL INH ×6 (01:51→22:20)
--- NOTE | 2019-10-24 02:08 | PC.NURSE ---
Addendum entered by Elodia Manjarrez R.N. 10/24/19 07:23: 0700-Patient is sedated with propofol gtt at 3mcg/min. Levophed gtt at 2mcg/min to keep MAP > 65 as ordered, see vital trends. Ca+ gluconate infusing for Ca+ 6.3 as ordered. Addendum entered by Elodia Manjarrez R.N. 10/24/19 02:31: 0215-Norepinephrine started as ordered by Hany SILVA after he spoke with EVELYN Leblanc via telephone. 0230-Initial dose 4mcg/min, BP increased to 131/64(88), titrated gtt down to 2mcg/min. NS bolus is complete. UOP in [place] is 200ml over last 3 hrs. Remains in NSR, riding vent RR setting of 16, FIO2 30%, TV 450, Peep 5, SpO2 94-96%, lung sounds coarse throughout. Original Note: 0140-Hany SILVA notified of hypotension 80s/40s with MAP 57 x2, order received to start a 500ml bolus of NS, done. Propofol gtt has been titrated down to 2mcg/min, RASS -3, patient is unresponsive except occasional grimace with ETT sx. 0200-Propofol gtt off, RASS -3. Bolus infusing, continue to monitor NBP Q15min.
[2019-10-24] MEDS: NOREPINEPHRINE 4 MG in DEXTROSE 5% IN WATER 250 ML 15.24 ML IV (02:28)
--- NOTE | 2019-10-24 02:58 | P.EN_ITS ---
Event Note Date Patient Seen: 10/24/19 Time Patient Seen: 00:05 Event Note: Patient reassessment for low blood pressure. This is an 79-year-old female patient [facility] with acute shortness of breath with reported hypoxic respiratory failure and altered mental status requiring emergent intubation by the ER. The patient has a history of hypertension, hyperlipidemia, hypothyroidism, longstanding history of multiple myeloma, renal cell carcinoma status post right nephrectomy 09/2008, and CKD. The patient was admitted to the ICU on ventilatory support and sedation with propofol. The patient had transient hypotension related to medication administration for intubation. She continues to have borderline low blood pressure on propofol. The propofol has been minimized and analgesia provided with fentanyl. Imaging reveals pneumonia versus atelectasis, no pulmonary embolism or internal bleeding related to elevated INR. Laboratory testing serology reveal positive MRSA screen and staph on PCR in conjunction with parainfluenza virus. At the time of intubation documentation within the medical record indicated the patient was full code. Subsequently a POLST 9111/12/2018) was obtained indicating yes to CPR with limited interventions including do not intubate. Since admission to the ICU the patient's blood pressures been low normal and subsequently drifted down with a mean arterial pressure of less than 60. A 500 cc fluid boluses been administered with improvement in blood pressure to 100/44. Heart rate remains stable 88-90 beats per minute. The patient has remained afebrile. Patient has minimal ventilatory support and over breathing backup rate 18-20 breaths per minute with tidal volume of 450 mL with peep of 5 saturating 95% on 30% FiO2. -propofol titrated down with patient remaining comfortable currently at 5 mcg. -continue analgesia with fentanyl -blood cultures reported this evening positive for Staph aureus. -arterial blood gas at 11:22 p.m. reveals a pH of 7.34, pCO2 24.7, PO2 of 86, base excess of -12 with a bicarb of 13.4. -Will continue to monitor closely with blood pressures every 15-30 minutes.
[2019-10-24] MEDS: fentaNYL 100 MCG/2 ML INJ 50 MCG IV ×6 (03:13→22:45)
[2019-10-24] MEDS: INSULIN ASPART 100 UNIT/ML INSULN PEN SUBCUT ×4 (03:14→20:11)
[2019-10-24 05:28] LABS: Hemoglobin 7.6 g/dL (12.0-16.0); Mean Corpuscular Hemoglobin 29.2 PG (26-34); Mean Corpuscular Volume 91.4 fL (80-100); Platelet Count 164 X10^3/uL (150-400); Red Blood Cell Count 2.61 X10^6/uL (4.0-5.2); Red Cell Distribution Width 16.7 % (11.6-14.8); White Blood Cell Count 11.1 X10^3/uL (4.5-11.0)
[2019-10-24 05:29] LABS: Add Manual Diff / Slide Review YES; Hematocrit 23.9 % (36-46); INR 2.1 (0.9-1.3)
[2019-10-24 05:35] LABS: BUN Creatinine Ratio 34.6 (6-22); Blood Urea Nitrogen 45 mg/dL (7-17); Carbon Dioxide 16 mmol/L (22-32); Chloride 112 mmol/L (98-107); Estimated Glomerular Filt Rate 39.3 mL/min (>60); Glucose 237 mg/dL (80-110); HEMOLYSIS < 15 (0-50); Magnesium 1.6 mg/dL (1.6-2.3); Potassium 3.7 mmol/L (3.4-5.1); Sodium 140 mmol/L (137-145)
[2019-10-24 05:47] LABS: Calcium 6.3 mg/dL (8.4-10.2)
[2019-10-24 06:14] LABS: Procalcitonin 2.57 ng/mL (<0.5)
[2019-10-24 06:26] LABS: HCO3 ABG 14 mmol/L (22-26); Oxygen Saturation ABG 97 % (95-100); PCO2 ABG 25.8 mmHg (35-45); PO2 ABG 94 mmHg (80-100); TCO2 ABG 14 mmol/L (21-31); pH ABG 7.33 (7.35-7.45)
[2019-10-24 06:27] LABS: Fractionated Inspired Oxygen 30
[2019-10-24 06:43] LABS: Neutrophils Absolute Manual 8991 /uL (3000-5900); Total Cells Counted 100
[2019-10-24 06:44] LABS: Anisocytosis 1+
[2019-10-24] MEDS: CALCIUM GLUCONATE 9.3 MEQ in SODIUM CHLORIDE 0.9% 50 ML 140 ML IV (06:53)
[2019-10-24] MEDS: NOREPINEPHRINE 4 MG in DEXTROSE 5% IN WATER 250 ML 7.62 ML IV (07:45)
[2019-10-24] MEDS: ACYCLOVIR 400 MG TABLET 800 MG PO (09:00)
[2019-10-24] MEDS: VANCOMYCIN 1,000 MG/200 ML PIGGYBACK 200 MG IV (09:00)
[2019-10-24] MEDS: SERTRALINE 50 MG TABLET 100 MG PO (09:00)
[2019-10-24] MEDS: GABAPENTIN 300 MG CAPSULE PO ×3 (09:00→19:59)
[2019-10-24] MEDS: LEVOTHYROXINE 150 MCG TABLET PO (09:01)
[2019-10-24] MEDS: PANTOPRAZOLE 40 MG VIAL IV (09:03)
[2019-10-24] MEDS: SODIUM CHLORIDE 0.9% 500 ML 1000 ML IV (09:15)
[2019-10-24] MEDS: PROPOFOL 1,000 MG/100 ML VIAL 5 MG IV (09:17)
--- NOTE | 2019-10-24 09:45 | P.PN_ITS ---
Subjective Subjective Date Patient Seen: 10/24/19 Interval history: Lorraine Parra is an 79-year-old woman with a past medical history significant for hypertension, hyperlipidemia, hypothyroidism, longstanding history of multiple myeloma, renal cell carcinoma status post right nephrectomy 09/2008, and CKD who presented to the ED via EMS from [facility] for acute r espiratory distress. Interval history: Patient became hypotensive overnight. She received two 500 cc boluses of normal saline in which her blood pressure responded to the 1st but did not respond to the 2nd, therefore, norepinephrine was started. The patient remains intubated and sedated. The patient underwent a pressure support trial of 07/29 in which she was initially tachypneic but then with no stimulation or anyone in the room she did well with respiratory rates in the 20s, TV in the 350's, and O2 sat mid to high 90's for approximately 30 minutes. She then started to cough and needed to be suction which caused her to be persitently tachypneic in the 40's and she was placed back on her current ventilator settings. Met with the patient's daughter and EVELYN Leblanc and discussed the patient's care in full detail. The patient's daughter relates that her mother has dementia. She does not believe that her mother understands the gravity of the decisions she has made regarding her care in the past including chemotherapy, code status, living at home with or without caregiver versus skilled care giving, etc. She reports that her mother often lies to her providers and tells them that she is compliant and taking her medications as prescribed when she is not. Discussed her mother's current POLST form which indicates CPR is allowed with limited interventions but do not resuscitate. Of note, the patient was previously listed as full code during her last hospitalization. Her daughter would like to discuss the patient's code status with her sister before changing it to DNR/DNI. She would also like to be present if and when the patient is extubated. She would like to know how her mother is doing and if she is not doing well or not going to make it out of this hospitalization she asked that her providers be forthcoming. Exam Vital Signs (past 8 hours): - 10/24/19 01:51 10/24/19 02:00 10/24/19 03:00 Temperature Pulse Rate 88 87 95 H Respiratory Rate 16 16 16 Blood Pressure 81/38 L 122/70 Pulse Oximetry 94 94 96 10/24/19 04:00 10/24/19 05:00 10/24/19 06:00 Temperature 99.4 F Pulse Rate 93 H 86 85 Respiratory Rate 19 16 16 Blood Pressure 112/52 L 116/57 L 120/63 Pulse Oximetry 97 98 97 10/24/19 06:20 10/24/19 07:00 10/24/19 08:00 Temperature 98.1 F Pulse Rate 90 93 H 92 H Respiratory Rate 22 16 17 Blood Pressure 120/60 115/53 L Pulse Oximetry 97 97 97 10/24/19 09:00 Temperature Pulse Rate 86 Respiratory Rate 16 Blood Pressure 118/48 L Pulse Oximetry 96 Fraction of Inspired Oxygen 30 Oxygen Delivery Method Mechanical Ventilation Oxygen Flow Rate 100 Narrative Exam Narrative: General: Elderly female lying in bed and in no acute distress, intubated and s edated. HEENT: Normocephalic, atraumatic. External ears without defect. Pupils equal, round, and reactive to light. Anicteric sclerae and moist conjunctivae. ET and OG tube in place. Neck: Supple with full range of motion. No jugular venous distension. No lymphadenopathy or thyromegaly. Cardiovascular: Regular rate and rhythm without murmurs, rubs, or gallops appreciated. Port-A-Cath in left chest without surrounding erythema. Pulmonary: Coarse lung sounds throughout in anterior lung christianson bilaterally. No wheeze or crackles. Passive respirations on ventilator. Abdomen: Soft, bowel sounds present, nondistended. No hepatosplenomegaly or masses appreciated. Extremities: No clubbing, cyanosis, or edema. Skin: Normal temperature, turgor, and texture; no ulcers or subcutaneous nodules appreciated. Several small circular lesions on right chest possibly shingles? that are healing with no open breaks in skin. Neurological: Intubated and sedated. When sedation is lightened patient fol lows commands and seems appropriate. Ventilator settings: PRVC: TV 450, RR 16, PEEP 5, FiO2 0.30 with SpO2 97%. ABG: pH 7.37, pCO2 23, PO2 87, HC03 13, FiO2 0.3 with SpO2 97%. IV lines: R PICC, Left Port-A-Cath, Lehman catheter. Objective Labs Result Diagrams: 10/29/19 05:00 10/29/19 05:00 Labs: Laboratory Results - last 24 hr 10/23/19 10/23/19 10/23/19 07:05 07:05 08:12 WBC RBC Hgb Hct MCV MCH MCHC RDW Plt Count Neut % (Auto) Lymph % (Auto) Haywood % (Auto) Eos % (Auto) Baso % (Auto) Lymph # (Auto) Haywood # (Auto) Baso # (Auto) Total Counted Seg Neutrophils % Band Neutrophils % Lymphocytes % (Manual) Monocytes % (Manual) Metamyelocytes % Neutrophils # (Manual) RBC Morphology Anisocytosis PT INR ABG pH 7.28 L* ABG pCO2 35.7 ABG pO2 155 H ABG HCO3 17 L ABG Total CO2 18 L ABG O2 Saturation 99 ABG Base Excess -10.0 L FiO2 0.40 Sodium Potassium Chloride Carbon Dioxide BUN Creatinine Estimated GFR BUN/Creatinine Ratio Glucose Hemoglobin A1c 7.9 H Calcium Magnesium Procalcitonin Nasal Screen MRSA (PCR) A. baumannii (PCR) Not detected Dora albicans (PCR) Not detected C. glabrata (PCR) Not detected C. krusei (PCR) Not detected C. parapsilosis (PCR) Not detected C. tropicalis (PCR) Not detected Enterobacteriac sp PCR Not detected E. cloacae complex PCR Not detected Enterococcus sp PCR Not detected E. coli (PCR) Not detected H. influenzae (PCR) Not detected Klebsiella oxytoca PCR Not detected Klebsiella pneumoniae Not detected List. monocytogenes PCR Not detected N. meningitidis (PCR) Not detected Proteus species (PCR) Not detected Serratia marcescens PCR Not detected Staphylococcus sp PCR Detected H Staph aureus (PCR) Detected H mecA-Methicil Res Gene Detected H Streptococcus sp PCR Not detected Group A Strep (PCR) Not detected Strep agalactiae (PCR) Not detected Strep pneumoniae (PCR) Not detected P. aeruginosa (PCR) Not detected Herminio/B-Vanco Res Genes Not Reportable KPC-Carbap Res Gene PCR Not Reportable 10/23/19 10/23/19 10/23/19 10:30 16:33 23:22 WBC RBC Hgb Hct MCV MCH MCHC RDW Plt Count Neut % (Auto) Lymph % (Auto) Haywood % (Auto) Eos % (Auto) Baso % (Auto) Lymph # (Auto) Haywood # (Auto) Baso # (Auto) Total Counted Seg Neutrophils % Band Neutrophils % Lymphocytes % (Manual) Monocytes % (Manual) Metamyelocytes % Neutrophils # (Manual) RBC Morphology Anisocytosis PT INR ABG pH 7.29 L 7.34 L ABG pCO2 26.7 L 24.7 L* ABG pO2 105 H 86 ABG HCO3 13 L 13 L ABG Total CO2 14 L 14 L ABG O2 Saturation 97 96 ABG Base Excess -14.0 L -12.0 L FiO2 30 30 Sodium Potassium Chloride Carbon Dioxide BUN Creatinine Estimated GFR BUN/Creatinine Ratio Glucose Hemoglobin A1c Calcium Magnesium Procalcitonin Nasal Screen MRSA (PCR) Positive for mrsa H A. baumannii (PCR) Dora albicans (PCR) C. glabrata (PCR) C. krusei (PCR) C. parapsilosis (PCR) C. tropicalis (PCR) Enterobacteriac sp PCR E. cloacae complex PCR Enterococcus sp PCR E. coli (PCR) H. influenzae (PCR) Klebsiella oxytoca PCR Klebsiella pneumoniae List. monocytogenes PCR N. meningitidis (PCR) Proteus species (PCR) Serratia marcescens PCR Staphylococcus sp PCR Staph aureus (PCR) mecA-Methicil Res Gene Streptococcus sp PCR Group A Strep (PCR) Strep agalactiae (PCR) Strep pneumoniae (PCR) P. aeruginosa (PCR) Herminio/B-Vanco Res Genes KPC-Carbap Res Gene PCR 10/24/19 10/24/19 10/24/19 05:00 05:00 05:00 WBC 11.1 H RBC 2.61 L Hgb 7.6 L Hct 23.9 L MCV 91.4 MCH 29.2 MCHC 32.0 RDW 16.7 H Plt Count 164 Neut % (Auto) Not Reportable Lymph % (Auto) Not Reportable Haywood % (Auto) Not Reportable Eos % (Auto) Not Reportable Baso % (Auto) Not Reportable Lymph # (Auto) Not Reportable Haywood # (Auto) Not Reportable Baso # (Auto) Not Reportable Total Counted 100 Seg Neutrophils % 71.0 H Band Neutrophils % 10.0 H Lymphocytes % (Manual) 13.0 L Monocytes % (Manual) 4.0 Metamyelocytes % 2.0 H Neutrophils # (Manual) 8991 H RBC Morphology See below Anisocytosis 1+ H PT 25.0 H D INR 2.1 H ABG pH ABG pCO2 ABG pO2 ABG HCO3 ABG Total CO2 ABG O2 Saturation ABG Base Excess FiO2 Sodium Potassium Chloride Carbon Dioxide BUN Creatinine Estimated GFR BUN/Creatinine Ratio Glucose Hemoglobin A1c Calcium Magnesium Procalcitonin 2.57 H Nasal Screen MRSA (PCR) A. baumannii (PCR) Dora albicans (PCR) C. glabrata (PCR) C. krusei (PCR) C. parapsilosis (PCR) C. tropicalis (PCR) Enterobacteriac sp PCR E. cloacae complex PCR Enterococcus sp PCR E. coli (PCR) H. influenzae (PCR) Klebsiella oxytoca PCR Klebsiella pneumoniae List. monocytogenes PCR N. meningitidis (PCR) Proteus species (PCR) Serratia marcescens PCR Staphylococcus sp PCR Staph aureus (PCR) mecA-Methicil Res Gene Streptococcus sp PCR Group A Strep (PCR) Strep agalactiae (PCR) Strep pneumoniae (PCR) P. aeruginosa (PCR) Herminio/B-Vanco Res Genes KPC-Carbap Res Gene PCR 10/24/19 10/24/19 05:00 06:03 WBC RBC Hgb Hct MCV MCH MCHC RDW Plt Count Neut % (Auto) Lymph % (Auto) Haywood % (Auto) Eos % (Auto) Baso % (Auto) Lymph # (Auto) Haywood # (Auto) Baso # (Auto) Total Counted Seg Neutrophils % Band Neutrophils % Lymphocytes % (Manual) Monocytes % (Manual) Metamyelocytes % Neutrophils # (Manual) RBC Morphology Anisocytosis PT INR ABG pH 7.33 L ABG pCO2 25.8 L ABG pO2 94 ABG HCO3 14 L ABG Total CO2 14 L ABG O2 Saturation 97 ABG Base Excess -12.0 L FiO2 30 Sodium 140 Potassium 3.7 Chloride 112 H Carbon Dioxide 16 L BUN 45 H Creatinine 1.30 H Estimated GFR 39.3 L BUN/Creatinine Ratio 34.6 H Glucose 237 H Hemoglobin A1c Calcium 6.3 L* Magnesium 1.6 Procalcitonin Nasal Screen MRSA (PCR) A. baumannii (PCR) Dora albicans (PCR) C. glabrata (PCR) C. krusei (PCR) C. parapsilosis (PCR) C. tropicalis (PCR) Enterobacteriac sp PCR E. cloacae complex PCR Enterococcus sp PCR E. coli (PCR) H. influenzae (PCR) Klebsiella oxytoca PCR Klebsiella pneumoniae List. monocytogenes PCR N. meningitidis (PCR) Proteus species (PCR) Serratia marcescens PCR Staphylococcus sp PCR Staph aureus (PCR) mecA-Methicil Res Gene Streptococcus sp PCR Group A Strep (PCR) Strep agalactiae (PCR) Strep pneumoniae (PCR) P. aeruginosa (PCR) Herminio/B-Vanco Res Genes KPC-Carbap Res Gene PCR Assessment & Plan Assessment & Plan narrative: Lorraine Parra is an 78-year-old woman with a past medical history significant for hypertension, hyperlipidemia, hypothyroidism and a longstanding history of multiple myeloma who was directly admitted from Dr. Rousseau's office for worsening cough thought to have probable pneumonia and mildly altered mental status. 1. Acute septic shock, present on admission. Resolving -Patient met sepsis criteria with end-organ dysfunction acute hypoxemic respiratory failure and infectious source pneumonia and possible UTI. -Early goal-directed therapy met including: IV fluid resuscitation and broad- spectrum antibiotics. -Patient received norepinephrine overnight as she no longer was fluid responsive. Norepinephrine has now been titrated off. 2. Acute hypoxemic respiratory failure, present on admission. Active. -Patient presented in acute respiratory distress with hypoxemia and tachypnea per EMS and ED physician on CPAP which was ineffective and she was subsequently intubated. -Continue current ventilator settings and perform ABG as necessary to adjust ventilator settings. -Plan to perform daily sedation vacation and pressure support/spontaneous breathing trial to wean off ventilator. 3. Acute parainfluenza with superimposed bacterial pneumonia and bacteremia, present on admission. Active. -Chest x-ray did not demonstrate any acute cardiopulmonary process. -CTA chest demonstrated bibasilar pneumonia L>R. -WBC 8.8 with 12% bands and procalcitonin 3.68. WBC trending up to 11.1 and procalcitonin trending down now 2.6. Continue to monitor WBC and procalcitonin daily. -Ordered complete pneumonia workup including: Respiratory viral PCR positive for parainfluenza 1. Strep pneumoniae and Legionella urine antigens, pending. Sputum culture preliminarily with Staph aureus and gram-negative bacilli with identification and sensitivity pending. Blood culture x2 positive in 4:4 bottles for Staph aureus with identification and sensitivities pending. Continue to repeat blood cultures daily until blood stream cleared. -Received cefepime 2 g IV x1 and vancomycin with dosing per pharmacist in ED. Continue vancomycin with dosing per pharmacist and started ertapenem 1 g every 24 hours as patient has history of ESBL UTI and pneumonia is considered healthcare associated pneumonia as she [facility] in [facility] and was hospitalized less than 90 days ago. -patient will need to have Port-A-Cath removed if blood cultures positive for MRSA. 4. Possible UTI, present on admission. Active. -Urinalysis appears possibly infected with urine culture pending. -Continue antibiotics as above pending urine culture identification and sensitivities. 5. 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 Active. -Etiology of INR elevation is unclear but likely due to recent antibiotic administration with ciprofloxacin. -Initial hemoglobin 8.7. Patient is hemodynamically stable with no overt bleeding other than from knows where NG tube insertion was attempted. -Initial INR 12.3. Patient previously had elevated INR of 7.7 on 10/21 and was instructed by ED physician to discontinue warfarin until INR was within therapeutic range. Received vitamin K 10 mg IV x 1 in ED. Continue to monitor INR and CBC daily and will plan to restart warfarin once INR is stable and in therapeutic range. -Ordered CT chest, abdomen and pelvis with contrast to rule out any hemorrhage, pending. 6. Multiple myeloma, present on admission. Stable. -Patient is followed by Dr. Rousseau of oncology. -Disease progression has been indolent for years but more recently has been progressive. -Discussed patient with her oncologist Dr. Rousseau who relays that the patient is supposed to be on weekly Velcade with plans to start daratumumab to help control disease progression. However, the patient is somewhat resistant to IV c hemotherapy and cancelled her last appointment on 09/20 and wanted to reschedule an appointment with Dr. Rousseau to discuss treatment options again as she was having second thoughts about IV chemotherapy. -Continue acyclovir 800 mg daily for Herpes Zoster prophylaxis and appears she may have had a recent flare. 7. Chronic kidney disease stage III, present on admission. Stable. -Patient is status post right nephrectomy for renal cell carcinoma. -Initial creatinine 1.6. Baseline creatinine 1.2-1.6. -Avoid nephrotoxic agents and optimize renal perfusion. Patient received IV contrast for CT chest, abdomen and pelvis as above. -Continue to monitor renal function daily. 8. Hypertension, chronic, present on admission. Stable. -Continue propranolol 160 mg daily. 9. Hypothyroidism, chronic, present on admission. Stable. -Continue levothyroxine 150 mcg daily. 10. Peripheral neuropathy, present on admission. Stable. -Continue gabapentin 300 mg three times daily. Patient is also on tizanidine 2 mg every 6 hours as needed as an outpatient. 11. Depression, chronic, present on admission. Stable. -Continue sertraline 100 mg daily. 12. GERD, chronic, present on admission. Stable. -Continue Protonix 40 mg IV daily. 13. History of renal cell carcinoma. -She had right nephrectomy 09/2008 for renal cell carcinoma, high grade, papillary, with chronic renal insufficiency. Disposition: Patient status guarded. Quality VTE Deep Vein Thrombosis/Pulmonary Embolism Present on Admission: No
[2019-10-24] MEDS: ERTAPENEM 1 GM in SODIUM CHLORIDE 0.9% 100 ML 200 ML IV (10:28)
[2019-10-24 10:33] LABS: HCO3 ABG 13 mmol/L (22-26); PO2 ABG 87 mmHg (80-100); TCO2 ABG 14 mmol/L (21-31); pH ABG 7.37 (7.35-7.45)
[2019-10-24 10:34] LABS: Fractionated Inspired Oxygen 30; Oxygen Saturation ABG 97 % (95-100)
--- NOTE | 2019-10-24 14:40 | PC.NURSE ---
Day Shift Note Pt sedated on 3 mcg/kg/min of propofol on AM assessment, grimacing with any change in position. Shook head yes when asked if she was in pain - IV fentanyl administered per EMAR. Pt continued to appear uncomfortable, grimacing and biting at tube. Reoriented to place and situation and pt nodded head in response. Propofol titrated to 10 mcg/kg/min for RASS of -2. Sedation vacation and CPAP trial done this morning, tolerated trial for about 30 min - RR in the 20s with SpO2 97% for majority of trial. After 30 min, pt began breathing in the 40s, unable to slow breathing with encouragement/coaching and thus placed back on ventilator by RT - Dr. Ortiz updated on above. Levophed at 2 mcg/min at start of shift, titrated to off at 0930 after 500 ml NS bolus, MAP remaining in the 65-78 range. Bilateral soft wrist restraints in place. Lehman catheter in place and draining clear yellow urine. Turning every 2 hours. Lung sounds coarse with rhonchi, moderate amounts yellow/white sputum via ET tube. OG tube continues at LIS. Bed alarm on.
--- NOTE | 2019-10-24 15:38 | ONC.PN ---
PN -Subjective Interval history: Diagnosis: Multiple myeloma Previous treatment: 1. 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 Progression to multiple myeloma started treatment with Revlimid and dexamethasone in March 2014. She later transitioned to Revlimid only at a dose of 15 mg/day. 3. Radiation therapy to the 6th rib, T11-L2, cervical spine and left ilium in May 2014 4. Radiation therapy to the right humerus finishing in October 2014 5. Radiation therapy to T7 and T12 in May 2015 6. Another course of radiation to the right humerus in June 2015 7. Another course of radiation to the spine from T9 through L1 in January 2016 8. 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 Radiation therapy to the right hip in October 2018. 10. Ninlaro and dexamethasone weekly beginning in January 2019 until April 2019. 11. Weekly Velcade and dexamethasone in May and June of 2019. 12. Radiation therapy to the left hip and pelvic region in June 2019 Interval history: The patient is an 79-year-old woman who I have followed in clinic. She has a history of longstanding multiple myeloma. Over the last 6 months, she has had evidence of progression with increasing lytic lesions, increasing serum free light chains with fractures and need for radiation. Her most recent course of radiation was in June of this year. At that time, she'd been on weekly Velcade and dexamethasone. She did have some decrease in her light chains during that time period however, she has not had any systemic therapy over the last 3 months or so. At her last visit in August, she had stabilized at rehab and was considering returning home. Her light chains were increasing. She appeared to be willing to start daratumumab in addition to Velcade with the goal of controlling her myeloma. However, she did not receive any of her treatment. She was seen in the ER about a week later with new fracture in the pelvis. She was hospitalized yesterday with apparent hypoxia and hypotension. She is currently intubated. Blood cultures are growing Staph aureus. Her past medical history is notable for chronic renal insufficiency. She has had prior renal cell carcinoma that was resected. She has had a history of pulmonary embolism. She has had multiple fractures in courses of radiation. Her current medications include vancomycin and ertapenem. She has been on acyclovir. Home Medications and Allergies Home Medications Medication Instructions Recorded Confirmed Type propranolol 160 mg PO DAILY #0 01/14/18 10/23/19 History sertraline 100 mg PO DAILY 03/30/18 10/23/19 History acetaminophen 650 mg PO Q8H 01/25/19 10/23/19 History cyanocobalamin (vitamin B-12) 1,000 mcg PO DAILY 01/25/19 10/23/19 History dexamethasone 20 mg PO QWEEK 06/29/19 10/23/19 History diclofenac sodium 1 g TOPICAL BID 06/29/19 10/23/19 History levothyroxine [Synthroid] 150 mcg PO DAILY 06/29/19 10/23/19 History ondansetron 4 mg PO Q8H PRN 06/29/19 10/23/19 History tizanidine 2 mg PO Q6H PRN 06/29/19 10/23/19 History warfarin See Rx Instructions .ROUTE .COMPLEX 06/29/19 10/23/19 History guaifenesin [Mucus Relief ER] 600 mg PO Q12HR PRN #15 tab 09/10/19 10/23/19 Rx Lactobacillus acidophilus 10 mg PO DAILY 10/21/19 10/23/19 History [Acidophilus] acyclovir 800 mg PO DAILYX7 10/21/19 10/23/19 History gabapentin 300 mg PO TID 10/21/19 10/23/19 History guaifenesin [Tussin Expectorant] 200 mg PO Q6HR PRN 10/21/19 10/23/19 History ipratropium bromide 1 spray INTRANASAL BID 10/21/19 10/23/19 History melatonin 6 mg PO BEDTIME 10/21/19 10/23/19 History omeprazole 20 mg PO DAILY 10/21/19 10/23/19 History oxycodone-acetaminophen [Percocet] 2 tab PO Q6H PRN 10/21/19 10/23/19 History polyvinyl alcohol 1 drp OPHTHALMIC (EYE) Q4HR PRN 10/21/19 10/23/19 History warfarin See Rx Instructions .ROUTE .COMPLEX 10/21/19 10/23/19 History multivitamin with minerals 1 tab PO DAILY 10/23/19 10/23/19 History oxycodone 20 mg PO Q6H PRN 10/23/19 10/23/19 History Allergies Allergy/AdvReac Type Severity Reaction Status Date / Time morphine Allergy Severe STROKE Verified 06/29/19 13:07 LIKE SYMPTOMS levofloxacin Allergy Intermediate HIVES Verified 06/29/19 13:07 adhesive [ADHESIVE] Allergy Mild BLISTERS Verified 06/29/19 13:07 celecoxib Allergy Mild RASH, Verified 06/29/19 13:07 SMALL BLISTERS, NAUSEA Penicillins Allergy Mild RASH Verified 06/29/19 13:07 phenazopyridine Allergy Mild VOMITING Verified 06/29/19 13:07 [From PYRIDIUM] Sulfa (Sulfonamide Allergy Mild BLISTERS Verified 06/29/19 13:07 Antibiotics) lactose [LACTOSE] Allergy Unknown Verified 06/29/19 13:07 Exam Vital signs: Vital Signs Temp Pulse Resp BP Pulse Ox 10/24/19 15:00 98.1 F 90 18 130/66 98 10/24/19 14:00 92 H 22 135/64 99 10/24/19 12:00 98.3 F 87 18 100/45 L 97 10/24/19 11:00 98.3 F 95 H 16 171/69 H 96 10/24/19 10:56 89 28 H 96 10/24/19 10:00 84 16 97/48 L 95 10/24/19 09:00 86 16 118/48 L 96 10/24/19 08:00 92 H 17 115/53 L 97 10/24/19 07:00 98.1 F 93 H 16 120/60 97 10/24/19 06:20 90 22 97 10/24/19 06:00 85 16 120/63 97 10/24/19 05:00 99.4 F 86 16 116/57 L 98 10/24/19 04:00 93 H 19 112/52 L 97 10/24/19 03:00 95 H 16 122/70 96 10/24/19 02:00 87 16 81/38 L 94 10/24/19 01:51 88 16 94 10/24/19 01:00 84.9 F L 90 19 87/41 L 94 10/24/19 00:00 90 18 96/44 L 95 10/23/19 23:00 90 17 102/48 L 97 10/23/19 22:00 88 17 86/42 L 96 10/23/19 21:12 98.1 F 10/23/19 21:00 98.1 F 93 H 23 102/51 L 10/23/19 20:00 90 18 90/47 L 10/23/19 19:00 88 16 90/46 L 10/23/19 18:22 86 16 99 10/23/19 18:00 87 16 96/48 L 98 10/23/19 16:59 89 19 98/43 L 99 10/23/19 16:31 97.6 F 91 H 23 108/55 L Intake and Output 10/23/19 10/24/19 10/24/19 23:59 07:59 15:59 Intake Total 759.6 / 4275.511 136.309 / 1000.822 864.513 / 1000.822 Output Total 1025 / 3000 525 / 1200 675 / 1200 Balance -265.4 / 1275.511 -388.691 / -199.178 189.513 / -199.178 Intake: IV 559.6 / 4075.511 136.309 / 1000.822 864.513 / 1000.822 Calcium Gluconate 9.3 meq In 70 / 70 Sodium Chloride 0.9% 50 ml @ 140 mls/hr IV NOW ONE Rx#: [id number] Ertapenem 1 gm In Sodium 100 / 100 Chloride 0.9% 100 ml @ 200 mls/ hr IV Q24H [facility] Rx#:[id number] Norepinephrine 4 mg In Dextrose 52.642 / 64.072 11.430 / 64.072 5% in Water 250 ml @ 5 MCG/MIN 19.05 mls/hr IV TITRATE [facility] Rx #:[id number] Propofol 1,000 mg In 100 ml @ 5 59.6 / 63.594 13.667 / 66.750 53.083 / 66.750 MCG/KG/MIN 2.91 mls/hr IV TITRATE [facility] Rx#:[id number] Sodium Chloride 0.9% 500 ml @ 500 / 500 500 / 500 1000 mls/hr IV BOLUS ONE Rx#: [id number] Vancomycin 1,000 mg In 200 ml @ 200 / 200 200 mls/hr IV Q24H [facility] Rx#: [id number] Tube Feeding 200 / 200 Output: Urine 450 / 450 Urine Amount (Catheter) 1025 / 3000 600 / 600 Gastric Drainage 75 / 150 75 / 150 Oral 75 / 150 75 / 150 Other: Weight 93.2 kg Patient Weight 10/24/19 23:59 Weight 93.2 kg - Constitutional Comments: She is intubated. She is not further examined. Results - Labs Laboratory Last Values WBC 11.1 X10^3/uL (4.5-11.0) H 10/24/19 05:00 RBC 2.61 X10^6/uL (4.0-5.2) L 10/24/19 05:00 Hgb 7.6 g/dL (12.0-16.0) L 10/24/19 05:00 Hct 23.9 % (36-46) L 10/24/19 05:00 MCV 91.4 fL (80-100) 10/24/19 05:00 MCH 29.2 PG (26-34) 10/24/19 05:00 MCHC 32.0 % (30-36) 10/24/19 05:00 RDW 16.7 % (11.6-14.8) H 10/24/19 05:00 Plt Count 164 X10^3/uL (150-400) 10/24/19 05:00 Neut % (Auto) Not Reportable 10/24/19 05:00 Lymph % (Auto) Not Reportable 10/24/19 05:00 [place] % (Auto) Not Reportable 10/24/19 05:00 Eos % (Auto) Not Reportable 10/24/19 05:00 Baso % (Auto) Not Reportable 10/24/19 05:00 Lymph # (Auto) Not Reportable 10/24/19 05:00 [place] # (Auto) Not Reportable 10/24/19 05:00 Baso # (Auto) Not Reportable 10/24/19 05:00 Total Counted 100 10/24/19 05:00 Seg Neutrophils % 71.0 % (38-70) H 10/24/19 05:00 Band Neutrophils % 10.0 % (3-7) H 10/24/19 05:00 Lymphocytes % (Manual) 13.0 % (25-45) L 10/24/19 05:00 Atypical Lymphs % 1.0 % (-0) H 10/23/19 07:05 Monocytes % (Manual) 4.0 % (2-11) 10/24/19 05:00 Metamyelocytes % 2.0 % (-0) H 10/24/19 05:00 Myelocytes % 1.0 % (-0) H 10/23/19 07:05 Neutrophils # (Manual) 8991 /uL (1026-1302) H 10/24/19 05:00 RBC Morphology See below 10/24/19 05:00 Anisocytosis 1+ H 10/24/19 05:00 PT 25.0 SECONDS (10.1-12.7) H D 10/24/19 05:00 INR 2.1 (0.9-1.3) H 10/24/19 05:00 APTT 58 SECONDS (26.4-36.2) H D 10/23/19 07:05 ABG pH 7.37 (7.35-7.45) 10/24/19 09:17 ABG pCO2 23.3 mmHg (35-45) L* 10/24/19 09:17 ABG pO2 87 mmHg (80-100) 10/24/19 09:17 ABG HCO3 13 mmol/L (22-26) L 10/24/19 09:17 ABG Total CO2 14 mmol/L (21-31) L 10/24/19 09:17 ABG O2 Saturation 97 % (95-100) 10/24/19 09:17 ABG Base Excess -12.0 mmol/L (-2-2) L 10/24/19 09:17 FiO2 30 10/24/19 09:17 Sodium 140 mmol/L (137-145) 10/24/19 05:00 Potassium 3.7 mmol/L (3.4-5.1) 10/24/19 05:00 Chloride 112 mmol/L (98-107) H 10/24/19 05:00 Carbon Dioxide 16 mmol/L (22-32) L 10/24/19 05:00 BUN 45 mg/dL (7-17) H 10/24/19 05:00 Creatinine 1.30 mg/dL (0.52-1.04) H 10/24/19 05:00 Estimated GFR 39.3 mL/min (>60) L 10/24/19 05:00 BUN/Creatinine Ratio 34.6 (6-22) H 10/24/19 05:00 Glucose 237 mg/dL (80-110) H 10/24/19 05:00 Hemoglobin A1c 7.9 % (4.0-6.0) H 10/23/19 07:05 Lactate 0.9 mmol/L (0.7-2.1) 10/23/19 07:05 Calcium 6.3 mg/dL (8.4-10.2) L* 10/24/19 05:00 Magnesium 1.6 mg/dL (1.6-2.3) 10/24/19 05:00 Total Bilirubin 0.9 mg/dL (0.2-1.3) 10/23/19 07:05 AST 26 IU/L (14-36) 10/23/19 07:05 ALT 15 IU/L (<35) 10/23/19 07:05 Alkaline Phosphatase 159 U/L (38-126) H 10/23/19 07:05 Total Creatine Kinase 58 U/L (30-135) 10/23/19 07:05 CK-MB (CK-2) TNP 10/23/19 07:05 CK-MB (CK-2) Rel Index TNP 10/23/19 07:05 Troponin I < 0.012 ng/mL (0.01-0.034) 10/23/19 07:05 B-Natriuretic Peptide 563 (<100) H 10/23/19 07:05 Total Protein 5.4 g/dL (6.3-8.2) L 10/23/19 07:05 Albumin 2.7 g/dL (3.5-5.0) L 10/23/19 07:05 Globulin 2.7 g/dL (1.7-4.1) 10/23/19 07:05 Albumin/Globulin Ratio 1.0 (1.0-2.8) 10/23/19 07:05 Lipase 60 U/L (23-300) D 10/23/19 07:05 Procalcitonin 2.57 ng/mL (<0.5) H 10/24/19 05:00 Urine Color Yellow 10/23/19 07:23 Urine Appearance Clear 10/23/19 07:23 Urine pH 5.5 (4.5-8.0) 10/23/19 07:23 Ur Specific [place] 1.010 (1.000-1.035) 10/23/19 07:23 Urine Protein 2+ (Negative) H 10/23/19 07:23 Urine Glucose (UA) Negative g/dL (Negative) 10/23/19 07:23 Urine Ketones Trace (NEGATIVE) H 10/23/19 07:23 Urine Occult Blood 2+ (Negative) H 10/23/19 07:23 Urine Nitrate Negative (Negative) 10/23/19 07:23 Urine Bilirubin Negative (NEGATIVE) 10/23/19 07:23 Urine Urobilinogen 0.2 E.U./dL (0.2) 10/23/19 07:23 Ur Leukocyte Esterase 1+ (NEGATIVE) H 10/23/19 07:23 Urine RBC None seen (0-5/HPF) 10/23/19 07:23 Urine WBC None seen (0-5/HPF) 10/23/19 07:23 Amorphous Sediment 3+ 10/23/19 07:23 Urine Bacteria None seen (None) 10/23/19 07:23 WBC Casts 1-5/lpf (None) H 10/23/19 07:23 Ur Culture Indicated? Specimen cultured 10/23/19 07:23 Nasal Screen MRSA (PCR) Positive for mrsa (Negative) H 10/23/19 10:30 A. baumannii (PCR) Not detected (Not Detect) 10/23/19 07:05 Chlamy pneumoniae PCR Not detected (Not Detect) 10/23/19 07:14 Adenovirus (PCR) Not detected (Not Detect) 10/23/19 07:14 B.parapertussis DNA PCR Not detected (Not Detect) 10/23/19 07:14 Dora albicans (PCR) Not detected (Not Detect) 10/23/19 07:05 C. glabrata (PCR) Not detected (Not Detect) 10/23/19 07:05 C. krusei (PCR) Not detected (Not Detect) 10/23/19 07:05 C. parapsilosis (PCR) Not detected (Not Detect) 10/23/19 07:05 C. tropicalis (PCR) Not detected (Not Detect) 10/23/19 07:05 Coronavirus OC43 (PCR) Not detected (Not Detect) 10/23/19 07:14 Coronavirus HKU1 (PCR) Not detected (Not Detect) 10/23/19 07:14 Coronavirus 229E (PCR) Not detected (Not Detect) 10/23/19 07:14 Coronavirus NL63 (PCR) Not detected (Not Detect) 10/23/19 07:14 Enterobacteriac sp PCR Not detected (Not Detect) 10/23/19 07:05 E. cloacae complex PCR Not detected (Not Detect) 10/23/19 07:05 Enterococcus sp PCR Not detected (Not Detect) 10/23/19 07:05 E. coli (PCR) Not detected (Not Detect) 10/23/19 07:05 H. influenzae (PCR) Not detected (Not Detect) 10/23/19 07:05 Human Metapneumovir PCR Not detected (Not Detect) 10/23/19 07:14 Influenza Type A (PCR) Not detected (Not Detect) 10/23/19 07:14 Influenza Type B (PCR) Not detected (Not Detect) 10/23/19 07:14 Klebsiella oxytoca PCR Not detected (Not Detect) 10/23/19 07:05 Klebsiella pneumoniae Not detected (Not Detect) 10/23/19 07:05 List. monocytogenes PCR Not detected (Not Detect) 10/23/19 07:05 M. pneumoniae (PCR) Not detected (Not Detect) 10/23/19 07:14 N. meningitidis (PCR) Not detected (Not Detect) 10/23/19 07:05 Parainfluenza 1 (PCR) Detected (Not Detect) H 10/23/19 07:14 Parainfluenza 2 (PCR) Not detected (Not Detect) 10/23/19 07:14 Parainfluenza 3 (PCR) Not detected (Not Detect) 10/23/19 07:14 Parainfluenza 4 (PCR) Not detected (Not Detect) 10/23/19 07:14 Proteus species (PCR) Not detected (Not Detect) 10/23/19 07:05 RSV (PCR) Not detected (Not Detect) 10/23/19 07:14 Entero/Rhino (PCR) Not detected (Not Detect) 10/23/19 07:14 Serratia marcescens PCR Not detected (Not Detect) 10/23/19 07:05 Staphylococcus sp PCR Detected (Not Detect) H 10/23/19 07:05 Staph aureus (PCR) Detected (Not Detect) H 10/23/19 07:05 mecA-Methicil Res Gene Detected (Not Detect) H 10/23/19 07:05 Streptococcus sp PCR Not detected (Not Detect) 10/23/19 07:05 Group A Strep (PCR) Not detected (Not Detect) 10/23/19 07:05 Strep agalactiae (PCR) Not detected (Not Detect) 10/23/19 07:05 Strep pneumoniae (PCR) Not detected (Not Detect) 10/23/19 07:05 P. aeruginosa (PCR) Not detected (Not Detect) 10/23/19 07:05 Herminio/B-Vanco Res Genes Not Reportable 10/23/19 07:05 KPC-Carbap Res Gene PCR Not Reportable 10/23/19 07:05 - Imaging Additional studies: Procedures Biopsy of bone, other bones (04/23/14) Excision of lesion of other soft tissue (01/01/12) Insertion of Endotracheal Airway into Trachea, Via Natural or Artificial Opening (10/23/19) Inspection of Upper Intestinal Tract, Via Natural or Artificial Opening Endoscopic (01/30/16) Respiratory Ventilation, 24-96 Consecutive Hours (10/23/19) Assessment and Plan (1) Multiple myeloma Problem details: Multiple myeloma previously treated with Revlimid and multiple courses of radiation. Current visit: No Status: Chronic 79-year-old woman with a longstanding history of multiple myeloma. She has evidence of progression throughout the skeleton. She has previously been reluctant to consider any IV chemotherapy. At this point, I don't think she really has any practical oral options available. There are number of IV medications which could potentially help to prolong her survival but would have the potential for toxicity. As her performance status has declined, I think the likelihood of toxicity has been increasing. She is currently intubated with Staph aureus bacteremia. I would have a low threshold to remove her port as this could be a potential site. If she recovers from her current illness, it would not be unreasonable to consider hospice. She will be at ongoing risk for fracture due to her progressive myeloma and lytic lesions. I think it's unlikely that she would be able to tolerate therapy at that point. (1) Multiple myeloma Qualifiers: Multiple myeloma remission status: not in remission Qualified Code(s): C90.00 - Multiple myeloma not having achieved remission
--- NOTE | 2019-10-24 15:49 | DIET.PN ---
Dietary Progress Note Assessment: 79y F positive for parainfluenza admitted for respiratory distress referred to nutrition for enteral nutrition reccs as continuing ventilator on 10/24/19. Pt is weight stable for past 3mo per hospital records, rehabbing at care center where she receives all meals, BMI 35.3. Risk for refeeding is low because of these factors. Pt has OG placed. Goal kcal and PRO levels are low r/t CKD, having one kidney, and per permissive underfeeding. Nutrition Diagnosis: Inadequate oral intake r/t inability to consume PO nourishments aeb pt on ventilator, sedation vacation unsuccessful after 10min. Patient Metrics Height: 64 in [place] body weight: 54.7 kg (70% above IBW) Actual body weight: 93.2 kg BMI: 35.1 kg/m2 (NHLBI status - Obesity Class II) Nutritional dosing weight: 64.3 kg Nutritional Requirements Goal kcal/k kcal/kg Goal protein/k.8 gm/kg Fluid restriction: None Current propofol: Approximately 10 mcg/kg/min (148 kcal/day) Enteral Nutrition Recommendations Glucerna (1.2 Jesus) at 35 mL/hr - Start at 15 mL/hr, titrate by 10 mL/hr every 6 hours to goal - 250 mL free water flushes every 4 hours (62.5 mL/hr) - Reassess goal feed rate once the patient is no longer receiving propofol - Provides 1156 kcal (18 kcal/kg) (including propofol) and 50 gm (0.8 gm/kg) of protein - Enteral feed and flushes provide 2180 mL (34 mL/kg) of free water Nutritional Monitor Parameters - Elevate head of bed 30-45 degrees while feeding - Check gastric residuals every 4 hours when initiating feeding. May check every 6-8 hours once goal rate is achieved - Hold gastric feeds for residuals more than 500 mL. Avoid holding feeds for residuals < 500 mL without other signs of intolerance
[2019-10-24] MEDS: MAGNESIUM SULFATE 2 GM/50 ML PIGGYBACK IV (16:34)
--- NOTE | 2019-10-24 17:49 | PC.NURSE ---
Addendum entered by Yaima Nicholas R.N. 10/24/19 22:42: Pt suctioned, turned, repositioned, oral care given. Port Heplocked per protocol. Propofol gtt at 10mcg/kg/min. Norepi gtt 3mcg/min. Tube feeds increased at 2200 to 35ml/hr Addendum entered by Yaima Nicholas R.N. 10/24/19 22:41: Post 500cc Bolus. 22:00 BP 82/43 (56). Restarted Levo Drip at 2mcg/min. Increased to 4mcg/min. 22:30 BP 103/46 (68). RECOVERY ROOM RN aware. Will maintain MAP >65. Addendum entered by Yaima Nicholas R.N. 10/24/19 21:45: Pt's 500 mL bolus almost complete. BP 85/44 (57). RECOVERY ROOM RN Hany aware. Will wait for IVF to complete and then assess need for vasopressors. Addendum entered by Yaima Nicholas R.N. 10/24/19 20:40: First 250mL free water bolus via OG given without incident. Residual checked prior after 4 hours of 15ml/hr tube feeds- 15mL resulting. Addendum entered by Yaima Nicholas R.N. 10/24/19 18:14: Pt turned, repositioned, suctioned, oral care given, 50mcg IV Fent for discomfort. Original Note: Pt intubated and sedated. Propofol gtt @ 10mcg/kg/min. IV Fentanyl 50mcg prn. GCS 10T. Restraints in place BUE per protocol. Patient able to squeeze hands on command, open eyes and follow faces. Pt nods yes and no to questions. Deneis pain at this time. Pt 97% on vent. PRVC 30%/450/16/5. Breathing trial at [id number]. Increased and sustained RR post suctioning ended trial. Sats never dropped. Pt beign suctioned Q1-2 hrs as needed with thick yellow white sputum resulting. HOB 30-45. Oral care given- bloody secretions from back of throat. ET 7.5 21 at the teeth. Pt 90s SR no ectopy. Biphasic P wave noted to continue. BP stable, no pressors at this point. Pt on IV Abx, 2g IV Mag given. Afebrile. Pt started on Glucerne 1.2 tube feeds at 1600. Rate of 15mL/hr, will increase in 6hrs to rate of 25 for a goal of 35. 250mL free water boluses Q4Hrs. Meds being given via OG. Will monitor residuals.
[2019-10-24] MEDS: SODIUM CHLORIDE 0.9% 500 ML IV (21:05)
[2019-10-25] VITALS (35 sets, daily range): BP systolic 95–152; BP diastolic 34–80; PULSE 86–107; RESP 17–29; TEMP 36.6–37.4; O2SAT 95–100
[2019-10-25] MEDS: fentaNYL 100 MCG/2 ML INJ 50 MCG IV ×2 (01:54→08:52)
[2019-10-25] MEDS: PROPOFOL 1,000 MG/100 ML VIAL 3 MG IV ×2 (03:06→10:06)
[2019-10-25] MEDS: INSULIN ASPART 100 UNIT/ML INSULN PEN SUBCUT ×4 (03:08→18:22)
[2019-10-25] MEDS: ALBUTEROL/IPRATROPIUM 3 ML AMPUL INH ×6 (03:46→22:35)
[2019-10-25 05:23] LABS: pH ABG 7.44 (7.35-7.45)
[2019-10-25 05:24] LABS: HCO3 ABG 16 mmol/L (22-26); Oxygen Saturation ABG 98 % (95-100); PCO2 ABG 23.7 mmHg (35-45); PO2 ABG 105 mmHg (80-100); TCO2 ABG 17 mmol/L (21-31)
[2019-10-25 05:26] LABS: Hemoglobin 7.3 g/dL (12.0-16.0); Mean Corpuscular HGB Conc 33.4 % (30-36); Mean Corpuscular Hemoglobin 29.8 PG (26-34); Mean Corpuscular Volume 89.1 fL (80-100); Platelet Count 157 X10^3/uL (150-400); Red Blood Cell Count 2.44 X10^6/uL (4.0-5.2); Red Cell Distribution Width 16.7 % (11.6-14.8); White Blood Cell Count 10.8 X10^3/uL (4.5-11.0)
[2019-10-25 05:29] LABS: Prothrombin Time 35.8 SECONDS (10.1-12.7)
[2019-10-25 05:34] LABS: Add Manual Diff / Slide Review YES; Alanine Aminotransferase 12 IU/L (<35); Albumin 2.2 g/dL (3.5-5.0); Albumin Globulin Ratio 0.8 (1.0-2.8); Alkaline Phosphatase 138 U/L (38-126); Aspartate Aminotransferase 19 IU/L (14-36); BUN Creatinine Ratio 30.9 (6-22); Bilirubin Total 0.7 mg/dL (0.2-1.3); Blood Urea Nitrogen 34 mg/dL (7-17); Calcium 6.7 mg/dL (8.4-10.2); Carbon Dioxide 19 mmol/L (22-32); Chloride 113 mmol/L (98-107); Estimated Glomerular Filt Rate 47.7 mL/min (>60); Globulin 2.9 g/dL (1.7-4.1); Glucose 287 mg/dL (80-110); HEMOLYSIS < 15 (0-50); Hematocrit 21.7 % (36-46); Potassium 3.2 mmol/L (3.4-5.1); Sodium 140 mmol/L (137-145); Total Protein 5.1 g/dL (6.3-8.2)
[2019-10-25 05:51] LABS: Neutrophils Absolute Manual 9720 /uL (3000-5900); Nucleated Red Blood Cells 1 #/Diff; Total Cells Counted 100
[2019-10-25 05:52] LABS: Anisocytosis 1+
--- NOTE | 2019-10-25 07:02 | PC.NURSE ---
[employer] Note-Patient has been calmly sedated with propofol gtt at 5mcg/min while on ventilator. No change to vent settings from previous shifts. Copious blood tinged secretions sx orally, small white sx from ETT. Levophed gtt titrated from 3mcg/min to 1mcg/min to keep MAP >65, see vital trends. Tolerating tube feedings via OGT, rate increased to 35ml/hr goal rate with water fleshes. 50mcg IV Fentanyl given x1 when patient nodded her head yes to pain. Turning Q2h, soft wrist restraint on.
[2019-10-25] MEDS: NOREPINEPHRINE 4 MG in DEXTROSE 5% IN WATER 250 ML IV (08:03)
[2019-10-25] MEDS: POTASSIUM CHLORIDE 60 MEQ in SODIUM CHLORIDE 0.9% 500 ML 88.333 ML IV (08:03)
[2019-10-25] MEDS: ACYCLOVIR 400 MG TABLET 800 MG PO (08:07)
[2019-10-25] MEDS: GABAPENTIN 300 MG CAPSULE PO ×3 (08:07→21:36)
[2019-10-25] MEDS: SERTRALINE 50 MG TABLET 100 MG PO (08:07)
[2019-10-25] MEDS: LEVOTHYROXINE 150 MCG TABLET PO (08:07)
[2019-10-25] MEDS: PANTOPRAZOLE 40 MG VIAL IV (08:07)
[2019-10-25 08:37] LABS: Procalcitonin 1.75 ng/mL (<0.5)
[2019-10-25] MEDS: VANCOMYCIN 1,000 MG/200 ML PIGGYBACK 200 MG IV (08:53)
[2019-10-25] MEDS: ERTAPENEM 1 GM in SODIUM CHLORIDE 0.9% 100 ML 200 ML IV (10:06)
--- NOTE | 2019-10-25 12:35 | P.PN_ITS ---
Subjective Subjective Date Patient Seen: 10/25/19 Time Patient Seen: 08:00 Interval history: Lorraine Parra is an 79-year-old woman with a past medical history significant for hypertension, hyperlipidemia, hypothyroidism, longstanding history of multiple myeloma, renal cell carcinoma status post right nephrectomy 09/2008, and CKD who presented to the ED via EMS from [facility] for acute respiratory distress. Interval history: Patient was hypotensive overnight and was restarted on Levophed for pressure support. Her blood pressures have improved today and she is now off of Levophed again. She remains intubated. She tolerated about 55 minutes of a breathing trial this morning. She seems to be slowly improving. She still has a lot of respiratory secretions, and given that she was still requiring pressure support this morning she will remain intubated today. Her blood cultures finalized today and have grown MRSA. Her sputum culture also is growing MRSA and Pseudomonas as well. Blood cultures are currently pending. Exam Vital Signs (past 8 hours): - 10/25/19 05:00 10/25/19 06:00 10/25/19 07:53 Temperature Pulse Rate 87 87 87 Respiratory Rate 17 18 20 Blood Pressure 112/52 L 110/57 L Pulse Oximetry 95 96 97 10/25/19 08:00 10/25/19 09:00 10/25/19 09:05 Temperature 98.1 F Pulse Rate 93 H 92 H Respiratory Rate 18 27 H Blood Pressure 112/56 L 122/59 L Pulse Oximetry 98 97 98 10/25/19 10:00 10/25/19 11:00 10/25/19 11:09 Temperature 97.9 F Pulse Rate 96 H 90 91 H Respiratory Rate 26 H 23 25 H Blood Pressure 129/47 L 102/43 L Pulse Oximetry 98 97 97 Fraction of Inspired Oxygen 30 Oxygen Delivery Method Mechanical Ventilation Oxygen Flow Rate 100 Narrative Exam Narrative: General: Elderly female lying in bed and in no acute distress, intubated and sedated. Follows commands as noted below. HEENT: Normocephalic, atraumatic. External ears without defect. Pupils equal, round, and reactive to light. Anicteric sclerae and moist conjunctivae. ET and OG tube in place. Neck: Supple with full range of motion. No jugular venous distension. No lymphadenopathy or thyromegaly. Cardiovascular: Regular rate and rhythm without murmurs, rubs, or gallops appreciated. Port-A-Cath in left chest without surrounding erythema. Pulmonary: Coarse lung sounds throughout in anterior lung christianson bilaterally. No wheeze or crackles. Passive respirations on ventilator. Abdomen: Soft, bowel sounds present, nondistended. No hepatosplenomegaly or masses appreciated. Extremities: No clubbing, cyanosis, or edema. Skin: Normal temperature, turgor, and texture; no ulcers or subcutaneous nodules appreciated. Several small circular lesions on right chest possibly shingles? that are healing with no open breaks in skin. Neurological: Intubated and sedated. When sedation is lightened patient follows commands and seems appropriate. Objective Labs Result Diagrams: 10/25/19 04:45 10/25/19 04:45 Labs: Laboratory Results - last 24 hr 10/25/19 10/25/19 10/25/19 04:45 04:45 04:45 WBC 10.8 RBC 2.44 L Hgb 7.3 L Hct 21.7 L MCV 89.1 MCH 29.8 MCHC 33.4 RDW 16.7 H Plt Count 157 Neut % (Auto) Not Reportable Lymph % (Auto) Not Reportable [place] % (Auto) Not Reportable Eos % (Auto) Not Reportable Baso % (Auto) Not Reportable Lymph # (Auto) Not Reportable [place] # (Auto) Not Reportable Baso # (Auto) Not Reportable Total Counted 100 Seg Neutrophils % 84.0 H Band Neutrophils % 6.0 Lymphocytes % (Manual) 4.0 L Monocytes % (Manual) 4.0 Eosinophils % (Manual) 1.0 L Metamyelocytes % 1.0 H Neutrophils # (Manual) 9720 H Nucleated RBCs 1 H RBC Morphology See below Anisocytosis 1+ H PT 35.8 H D INR 3.0 H ABG pH ABG pCO2 ABG pO2 ABG HCO3 ABG Total CO2 ABG O2 Saturation ABG Base Excess FiO2 Sodium 140 Potassium 3.2 L Chloride 113 H Carbon Dioxide 19 L BUN 34 H Creatinine 1.10 H Estimated GFR 47.7 L BUN/Creatinine Ratio 30.9 H Glucose 287 H Calcium 6.7 L Magnesium 2.0 Total Bilirubin 0.7 AST 19 ALT 12 Alkaline Phosphatase 138 H Total Protein 5.1 L Albumin 2.2 L Globulin 2.9 Albumin/Globulin Ratio 0.8 L Procalcitonin 10/25/19 10/25/19 04:45 05:11 WBC RBC Hgb Hct MCV MCH MCHC RDW Plt Count Neut % (Auto) Lymph % (Auto) [place] % (Auto) Eos % (Auto) Baso % (Auto) Lymph # (Auto) [place] # (Auto) Baso # (Auto) Total Counted Seg Neutrophils % Band Neutrophils % Lymphocytes % (Manual) Monocytes % (Manual) Eosinophils % (Manual) Metamyelocytes % Neutrophils # (Manual) Nucleated RBCs RBC Morphology Anisocytosis PT INR ABG pH 7.44 ABG pCO2 23.7 L* ABG pO2 105 H ABG HCO3 16 L ABG Total CO2 17 L ABG O2 Saturation 98 ABG Base Excess -8.0 L FiO2 0.30 Sodium Potassium Chloride Carbon Dioxide BUN Creatinine Estimated GFR BUN/Creatinine Ratio Glucose Calcium Magnesium Total Bilirubin AST ALT Alkaline Phosphatase Total Protein Albumin Globulin Albumin/Globulin Ratio Procalcitonin 1.75 H Assessment & Plan Assessment & Plan narrative: Lorraine Parra is an 78-year-old woman with a past medical history significant for hypertension, hyperlipidemia, hypothyroidism and a longstanding history of multiple myeloma who was directly admitted from Dr. Rousseau's office for worsening cough thought to have probable pneumonia and mildly altered mental status, she was admitted for hypoxemic respiratory failure. She was intubated in the emergency room, and after fluid resuscitation still had low blood pressure as so she was begun on Levophed. She appears to be improving today, and Levophed has been weaned off. She remained intubated at this time. 1. Acute septic shock, present on admission. Improving. - source includes MRSA bacteremia and MRSA / pseudomonal pneumonia. -Patient met sepsis criteria with end-organ dysfunction acute hypoxemic respiratory failure and infectious source pneumonia and possible port site. -Early goal-directed therapy met including: IV fluid resuscitation and broad- spectrum antibiotics. -Patient received norepinephrine overnight as she no longer was fluid responsive. Norepinephrine has now been titrated off. -will disucss with family possible removal of port site given MRSA bacteremia. She does have, however MRSA in her sputum so this could theoretically be the source. If her blood cultures do not clear will definitely need removal. 2. Acute hypoxemic respiratory failure, present on admission. Active. -Patient presented in acute respiratory distress with hypoxemia and tachypnea per EMS and ED physician on CPAP which was ineffective and she was subsequently intubated. -Continue current ventilator settings and perform ABG as necessary to adjust ventilator settings. -Plan to perform daily sedation vacation and pressure support/spontaneous breathing trial to wean off ventilator. My hope is that she can be extubated tomorrow if her secretions are decreased. 3. Acute parainfluenza with superimposed bacterial pneumonia and bacteremia, present on admission. Active. -Chest x-ray did not demonstrate any acute cardiopulmonary process. -CTA chest demonstrated bibasilar pneumonia L>R. -WBC 8.8 with 12% bands and procalcitonin 3.68 on admission. WBC stable today at 10.8 and procalcitonin trending down now 1.75. Continue to monitor WBC and procalcitonin daily. -Ordered complete pneumonia workup including: Respiratory viral PCR positive for parainfluenza 1. Strep pneumoniae and Legionella urine antigens, pending. Sputum culture with MRSA and markham-sensitive pseudomonas. -Received cefepime 2 g IV x1 and vancomycin with dosing per pharmacist in ED. Continue vancomycin with dosing per pharmacist and will leave on ertapenem for another dose today, if still improving will narrow tomorrow to a narrowed pseudomonal regimen. -port site will likely need to be removed, will discuss with family first. 4. Possible UTI, present on admission. Active. -Urinalysis appears possibly infected with urine culture pending. -Continue antibiotics as above pending urine culture identification and sensitivities. 5. 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 Active. -Etiology of INR elevation is unclear but likely due to recent antibiotic administration with ciprofloxacin. -Initial hemoglobin 8.7. Patient is hemodynamically stable with no overt bleeding other than from knows where NG tube insertion was attempted. -Initial INR 12.3. Patient previously had elevated INR of 7.7 on 10/21 and was instructed by ED physician to discontinue warfarin until INR was within therapeutic range. Received vitamin K 10 mg IV x 1 in ED. Continue to monitor INR and CBC daily and will plan to restart warfarin once INR is stable and in therapeutic range. (today it increased to 3.0 from the 2s, likely due to sepsis and will continue to hold). -CT showed possible psoas hematoma however not significant in size. 6. Multiple myeloma, present on admission. Stable. -Patient is followed by Dr. Rousseau of oncology. -Disease progression has been indolent for years but more recently has been progressive. -appreciate recommendations by Dr. Rousseau of Oncology. Once extubated will discuss future options with patient and potential hospice. -Continue acyclovir 800 mg daily for Herpes Zoster prophylaxis and appears she may have had a recent flare. 7. Chronic kidney disease stage III, present on admission. Stable. -Patient is status post right nephrectomy for renal cell carcinoma. -Initial creatinine 1.6. Baseline creatinine 1.2-1.6. -Avoid nephrotoxic agents and optimize renal perfusion. Patient received IV contrast for CT chest, abdomen and pelvis as above. -Continue to monitor renal function daily. 8. Hypertension, chronic, present on admission. Stable. -Continue propranolol 160 mg daily once off of Levophed and blood pressures are improved. 9. Hypothyroidism, chronic, present on admission. Stable. -Continue levothyroxine 150 mcg daily. 10. Peripheral neuropathy, present on admission. Stable. -Continue gabapentin 300 mg three times daily. Patient is also on tizanidine 2 mg every 6 hours as needed as an outpatient. 11. Depression, chronic, present on admission. Stable. -Continue sertraline 100 mg daily. 12. GERD, chronic, present on admission. Stable. -Continue Protonix 40 mg IV daily. 13. History of renal cell carcinoma. -She had right nephrectomy 09/2008 for renal cell carcinoma, high grade, papillary, with chronic renal insufficiency. I spent 35 minutes providing critical care management this patient. This excludes time spent in performing separately billed procedures. Disposition: Patient status guarded. Quality VTE Deep Vein Thrombosis/Pulmonary Embolism Present on Admission: No
--- NOTE | 2019-10-25 15:22 | PC.NURSE ---
Day Shift Note Sedation vacation done this AM with CPAP trial starting at 0905 and ending at 0955. Pt tolerated well with RR in the 22-24 bpm range and SpO2 at 97-98%. Follows commands and able to shake head yes or no in response to questions. Levophed off at 0930, MAP > 65. Tolerating tube feeds with 0 residuals, at goal of 35 ml/hr. Bilateral soft wrist restraints in place. Propofol infusing at 10 mcg/kg/min for RASS of -2. Lehman in place and draining clear yellow urine. Dr. Blevins updated on CPAP trial results and CBGs in the 300s (see new order). Bed alarm on.
[2019-10-25] MEDS: fentaNYL 100 MCG/2 ML INJ IV ×3 (15:50→22:30)
--- NOTE | 2019-10-25 15:53 | CM.IDA ---
Initial DCP Assessment Note: Pt is an 79 yo female, resident of [place]. Pt admitted from [facility] for acute resp. distress. PCP: Unknown Payer: Medicare/[employer] Reviewed chart. Pt currently intubated and on tube feeding, MRSA+ in the blood. per morning rounds, Dr Blevins will not attempt to extubate today. POLST indicates DNR and limited interventions/ DNI. Placed call to March at [facility] who expects to readmit pt if needed, either comfort care or rehab, they are using pt's Medicaid coverage for reimbursement. [facility] staff were preparing pt for return home w/resumption of DANNA cgs when this event occurred. Reviewed Dr Rousseau's note dated 10.24.19 indicating Hospice would be appropriate at this time, per his notes: She will be at ongoing risk for fracture due to her progressive myeloma and lytic lesions Noted Dr Ortiz's progress note outlining a candid conversation w/family about pt's guarded prognosis; no change in POC at this time. Reviewed POC w/ RN Ghada today, plan is to attempt to extubate tomorrow if pt tolerates sedation vacation today. This OPERATING ROOM TECH following closely. If pt survives this hospitalization she will inevitably need SNF unless family capable of taking pt home w/HH or Hospice. Will plan to present options to family as medical POC unfolds. Charlene Coello MSW
[2019-10-25 17:55] LABS: PCO2 ABG 23.3 mmHg (35-45)
--- NOTE | 2019-10-25 20:39 | PC.NURSE ---
1900- Levophed restarted for low BP. UOP so far is adequate. Will monitor.
[2019-10-25] MEDS: CALCIUM GLUCONATE 9.3 MEQ in SODIUM CHLORIDE 0.9% 50 ML 140 ML IV (21:33)
[2019-10-25] MEDS: INSULIN GLARGINE 100 UNIT/ML 10ML VIAL 10 UNIT SUBCUT (21:35)
[2019-10-25] MEDS: PROPOFOL 1,000 MG/100 ML VIAL 6 MG IV (21:39)
[2019-10-26] VITALS (48 sets, daily range): BP systolic 94–153; BP diastolic 38–76; PULSE 84–104; RESP 16–33; TEMP 36.6–37.7; O2SAT 95–100; BMI 34.7
[2019-10-26] MEDS: INSULIN ASPART 100 UNIT/ML INSULN PEN SUBCUT ×4 (00:35→18:55)
[2019-10-26] MEDS: INSULIN GLARGINE 100 UNIT/ML 10ML VIAL SUBCUT (00:55)
[2019-10-26] MEDS: ALBUTEROL/IPRATROPIUM 3 ML AMPUL INH ×6 (03:40→22:27)
[2019-10-26 05:14] LABS: Alanine Aminotransferase 11 IU/L (<35); Albumin 2.2 g/dL (3.5-5.0); Albumin Globulin Ratio 0.8 (1.0-2.8); Alkaline Phosphatase 139 U/L (38-126); Aspartate Aminotransferase 20 IU/L (14-36); Bilirubin Total 0.9 mg/dL (0.2-1.3); Bilirubin Unconjugated 0.4 mg/dL (0.0-1.1); Blood Urea Nitrogen 28 mg/dL (7-17); Calcium 7.5 mg/dL (8.4-10.2); Carbon Dioxide 19 mmol/L (22-32); Chloride 112 mmol/L (98-107); Estimated Glomerular Filt Rate 53.2 mL/min (>60); Globulin 2.9 g/dL (1.7-4.1); Glucose 271 mg/dL (80-110); HEMOLYSIS < 15 (0-50); Magnesium 1.8 mg/dL (1.6-2.3); Phosphorous 2.2 mg/dL (2.8-4.1); Sodium 137 mmol/L (137-145); Total Protein 5.1 g/dL (6.3-8.2)
[2019-10-26 05:20] LABS: Hematocrit 21.8 % (36-46); Hemoglobin 7.1 g/dL (12.0-16.0); Mean Corpuscular HGB Conc 32.6 % (30-36); Mean Corpuscular Volume 88.9 fL (80-100); Platelet Count 160 X10^3/uL (150-400); Red Blood Cell Count 2.45 X10^6/uL (4.0-5.2); Red Cell Distribution Width 16.7 % (11.6-14.8); White Blood Cell Count 16.3 X10^3/uL (4.5-11.0)
[2019-10-26 05:24] LABS: Add Manual Diff / Slide Review YES
[2019-10-26 05:29] LABS: Fractionated Inspired Oxygen 30; HCO3 ABG 16 mmol/L (22-26); Oxygen Saturation ABG 97 % (95-100); PCO2 ABG 22.7 mmHg (35-45); PO2 ABG 89 mmHg (80-100); TCO2 ABG 16 mmol/L (21-31); pH ABG 7.44 (7.35-7.45)
[2019-10-26 05:36] LABS: Procalcitonin 1.32 ng/mL (<0.5)
[2019-10-26] MEDS: LEVOTHYROXINE 150 MCG TABLET PO (06:13)
[2019-10-26 07:00] LABS: Anisocytosis 1+; Neutrophils Absolute Manual 13855 /uL (3000-5900); Smudge Cells 1+; Total Cells Counted 100
[2019-10-26 07:01] LABS: Hypochromasia 1+; Toxic Granulation Present
[2019-10-26 07:02] LABS: Dohle Bodies 1+
[2019-10-26] MEDS: fentaNYL 100 MCG/2 ML INJ 50 MCG IV (08:06)
[2019-10-26] MEDS: ACETAMINOPHEN 325 MG TABLET 650 MG PO (08:07)
[2019-10-26] MEDS: SERTRALINE 50 MG TABLET 100 MG PO (08:07)
[2019-10-26] MEDS: PANTOPRAZOLE 40 MG VIAL IV (08:07)
[2019-10-26] MEDS: GABAPENTIN 300 MG CAPSULE PO (08:07)
[2019-10-26] MEDS: PROPOFOL 1,000 MG/100 ML VIAL 9 MG IV ×2 (08:15→12:33)
--- NOTE | 2019-10-26 08:16 | DI.RAD.S_ITS ---
PROCEDURE: XR CHEST 1V INDICATIONS: rising WBC count, worsened lung exam TECHNIQUE: One view of the chest was acquired. COMPARISON: [facility], CR, XR CHEST 1V, 10/23/2019, 14:25. [facility], CR, XR CHEST 1V, 10/23/2019, 7:13. [facility], CT, CT ANGIO CHEST, 10/23/2019, 12:42. [facility], CR, XR CHEST FOR PICC 1V, 10/23/2019, 17:43. FINDINGS: Surgical changes and devices: An endotracheal tube is seen, with the tip 3-4 cm above the juan. 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 A stable right-sided PICC line is seen. A gastric tube is seen, with the tip overlying the distal stomach. Lungs and pleura: No focal infiltrates are seen. No pleural effusions or pneumothorax. Mediastinum: The cardiac contours are within normal limits. The aorta demonstrates calcification and tortuosity. Bones and chest wall: Age-appropriate bony degenerative changes are seen. Expansile rib lesions are seen. Truncation of the distal clavicles can be seen. No suspicious bony lesions. Overlying soft tissues appear unremarkable. IMPRESSION: No focal infiltrates are seen. Stable tubes and lines, including a chest port coursing through a left-sided SVC. Dictated by: Roney Tapia M.D. on 10/26/2019 at 8:07 Approved by: Roney Tapia M.D. on 10/26/2019 at 8:11
[2019-10-26 09:39] LABS: Vancomycin Trough 11.4 ug/mL (10-20)
[2019-10-26] MEDS: VANCOMYCIN 1,000 MG/200 ML PIGGYBACK 200 MG IV (10:01)
[2019-10-26] MEDS: fentaNYL 100 MCG/2 ML INJ IV ×3 (10:02→20:40)
[2019-10-26] MEDS: ERTAPENEM 1 GM in SODIUM CHLORIDE 0.9% 100 ML 200 ML IV (11:36)
--- NOTE | 2019-10-26 11:42 | P.PN_ITS ---
Subjective Subjective Date Patient Seen: 10/26/19 Time Patient Seen: 08:00 Interval history: Lorraine Parra is an 79-year-old woman with a past medical history significant for hypertension, hyperlipidemia, hypothyroidism, longstanding history of multiple myeloma, renal cell carcinoma status post right nephrectomy 09/2008, and CKD who presented to the ED via EMS from [facility] for acute respiratory distress. Interval history: Patient remains on Levophed for pressure support, she was briefly off yesterday for short period of time. She is currently on 5 mcg of Levophed. She remains intubated and became very tachypneic on a pressure support trial this morning. Her propofol has been increased slightly, and she is appropriately sedated, follows commands when asked. She still has a lot of respiratory secretions, and given that she id still requiring pressure support this morning she will remain intubated today. Her blood cultures finalized and have grown MRSA. Her sputum culture also is growing MRSA and Pseudomonas as well. Blood cultures from yesterday still showed 2+ Gram-positive cocci. Discussed with the family today, and they continue to want full treatment at this time, with the goal being to maximize her lung function prior to extubation because the plan is again for DNR/DNI once she is extubated. Discussed with surgery today, and hopefully they will be able to remove her port later today, however her INR was 3.0 yesterday and will repeat again today. Her white blood cell count did jump today to 16.3, and her hemoglobin decreased slightly to 7.1. She was ordered for 1 unit of blood. Exam Vital Signs (past 8 hours): - 10/26/19 03:43 10/26/19 04:00 10/26/19 04:30 Temperature Pulse Rate 96 H 94 H Respiratory Rate 17 19 Blood Pressure 114/51 L 115/54 L Pulse Oximetry 97 97 96 10/26/19 05:00 10/26/19 05:30 10/26/19 06:00 Temperature Pulse Rate 94 H 95 H 89 Respiratory Rate 18 21 20 Blood Pressure 113/47 L 95/57 L 108/47 L Pulse Oximetry 95 97 97 10/26/19 06:51 10/26/19 07:00 10/26/19 08:00 Temperature 99.4 F Pulse Rate 87 86 96 H Respiratory Rate 19 19 23 Blood Pressure 110/44 L 114/48 L 120/53 L Pulse Oximetry 98 97 98 10/26/19 08:57 10/26/19 09:00 10/26/19 10:00 Temperature 97.9 F Pulse Rate 93 H 96 H 92 H Respiratory Rate 22 19 20 Blood Pressure 108/48 L 109/47 L Pulse Oximetry 99 97 97 10/26/19 10:30 10/26/19 11:00 Temperature 99.9 F H 99.5 F Pulse Rate 95 H 92 H Respiratory Rate 18 21 Blood Pressure 113/59 L 112/59 L Pulse Oximetry 97 Fraction of Inspired Oxygen 30 Oxygen Delivery Method Mechanical Ventilation Oxygen Flow Rate 100 Narrative Exam Narrative: General: Elderly female lying in bed and in no acute distress, intubated and sedated. Follows commands as noted below. HEENT: Normocephalic, atraumatic. External ears without defect. Pupils equal, round, and reactive to light. Anicteric sclerae and moist conjunctivae. ET and OG tube in place. Neck: Supple with full range of motion. No jugular venous distension. No lymphadenopathy or thyromegaly. Cardiovascular: Regular rate and rhythm without murmurs, rubs, or gallops appreciated. Port-A-Cath in left chest without surrounding erythema. Pulmonary: Coarse lung sounds throughout with L >R today. No wheeze or crackles. Abdomen: Soft, bowel sounds present, nondistended. No hepatosplenomegaly or masses appreciated. Extremities: No clubbing, cyanosis, or edema. Skin: Normal temperature, turgor, and texture; no ulcers or subcutaneous nodules appreciated. Neurological: Intubated and sedated. When sedation is lightened patient f ollows commands and seems appropriate. Objective Labs Result Diagrams: 10/26/19 04:50 10/26/19 04:50 Labs: Laboratory Results - last 24 hr 10/23/19 10/24/19 10/24/19 23:20 06:00 09:40 WBC RBC Hgb Hct MCV MCH MCHC RDW Plt Count Neut % (Auto) Lymph % (Auto) [place] % (Auto) Eos % (Auto) Baso % (Auto) Lymph # (Auto) [place] # (Auto) Baso # (Auto) Total Counted Seg Neutrophils % Band Neutrophils % Lymphocytes % (Manual) Monocytes % (Manual) Metamyelocytes % Neutrophils # (Manual) Smudge Cells Toxic Granulation Dohle Bodies RBC Morphology Hypochromasia Anisocytosis ABG pH 7.34 L 7.33 L 7.37 ABG pCO2 24.7 L* 25.8 L ABG pO2 86 94 87 ABG HCO3 13 L 14 L 13 L ABG Total CO2 14 L 14 L 14 L ABG O2 Saturation 96 97 97 ABG Base Excess -12.0 L -12.0 L -12.0 L FiO2 30 30 30 Sodium Potassium Chloride Carbon Dioxide BUN Creatinine Estimated GFR BUN/Creatinine Ratio Glucose Calcium Phosphorus Magnesium Total Bilirubin Conjugated Bilirubin Unconjugated Bilirubin AST ALT Alkaline Phosphatase Total Protein Albumin Globulin Albumin/Globulin Ratio Procalcitonin Vancomycin Trough Blood Type Antibody Screen Crossmatch 10/25/19 10/26/19 10/26/19 05:10 04:50 04:50 WBC 16.3 H D RBC 2.45 L Hgb 7.1 L Hct 21.8 L MCV 88.9 MCH 29.0 MCHC 32.6 RDW 16.7 H Plt Count 160 Neut % (Auto) Not Reportable Lymph % (Auto) Not Reportable [place] % (Auto) Not Reportable Eos % (Auto) Not Reportable Baso % (Auto) Not Reportable Lymph # (Auto) Not Reportable [place] # (Auto) Not Reportable Baso # (Auto) Not Reportable Total Counted 100 Seg Neutrophils % 75.0 H Band Neutrophils % 10.0 H Lymphocytes % (Manual) 8.0 L Monocytes % (Manual) 5.0 Metamyelocytes % 2.0 H Neutrophils # (Manual) 55815 H Smudge Cells 1+ H Toxic Granulation Present H Dohle Bodies 1+ H RBC Morphology See below Hypochromasia 1+ H Anisocytosis 1+ H ABG pH 7.44 ABG pCO2 23.7 L* ABG pO2 105 H ABG HCO3 16 L ABG Total CO2 17 L ABG O2 Saturation 98 ABG Base Excess -8.0 L FiO2 0.30 Sodium Potassium Chloride Carbon Dioxide BUN Creatinine Estimated GFR BUN/Creatinine Ratio Glucose Calcium Phosphorus Magnesium Total Bilirubin Conjugated Bilirubin Unconjugated Bilirubin AST ALT Alkaline Phosphatase Total Protein Albumin Globulin Albumin/Globulin Ratio Procalcitonin 1.32 H Vancomycin Trough Blood Type Antibody Screen Crossmatch 10/26/19 10/26/19 10/26/19 04:50 05:02 08:10 WBC RBC Hgb Hct MCV MCH MCHC RDW Plt Count Neut % (Auto) Lymph % (Auto) [place] % (Auto) Eos % (Auto) Baso % (Auto) Lymph # (Auto) [place] # (Auto) Baso # (Auto) Total Counted Seg Neutrophils % Band Neutrophils % Lymphocytes % (Manual) Monocytes % (Manual) Metamyelocytes % Neutrophils # (Manual) Smudge Cells Toxic Granulation Dohle Bodies RBC Morphology Hypochromasia Anisocytosis ABG pH 7.44 ABG pCO2 22.7 L* ABG pO2 89 ABG HCO3 16 L ABG Total CO2 16 L ABG O2 Saturation 97 ABG Base Excess -9.0 L FiO2 30 Sodium 137 Potassium 4.0 Chloride 112 H Carbon Dioxide 19 L BUN 28 H Creatinine 1.00 Estimated GFR 53.2 L BUN/Creatinine Ratio 28.0 H Glucose 271 H Calcium 7.5 L Phosphorus 2.2 L Magnesium 1.8 Total Bilirubin 0.9 Conjugated Bilirubin 0.0 Unconjugated Bilirubin 0.4 AST 20 ALT 11 Alkaline Phosphatase 139 H Total Protein 5.1 L Albumin 2.2 L Globulin 2.9 Albumin/Globulin Ratio 0.8 L Procalcitonin Vancomycin Trough Blood Type A Positive Antibody Screen Negative Crossmatch See Detail 10/26/19 08:15 WBC RBC Hgb Hct MCV MCH MCHC RDW Plt Count Neut % (Auto) Lymph % (Auto) [place] % (Auto) Eos % (Auto) Baso % (Auto) Lymph # (Auto) [place] # (Auto) Baso # (Auto) Total Counted Seg Neutrophils % Band Neutrophils % Lymphocytes % (Manual) Monocytes % (Manual) Metamyelocytes % Neutrophils # (Manual) Smudge Cells Toxic Granulation Dohle Bodies RBC Morphology Hypochromasia Anisocytosis ABG pH ABG pCO2 ABG pO2 ABG HCO3 ABG Total CO2 ABG O2 Saturation ABG Base Excess FiO2 Sodium Potassium Chloride Carbon Dioxide BUN Creatinine Estimated GFR BUN/Creatinine Ratio Glucose Calcium Phosphorus Magnesium Total Bilirubin Conjugated Bilirubin Unconjugated Bilirubin AST ALT Alkaline Phosphatase Total Protein Albumin Globulin Albumin/Globulin Ratio Procalcitonin Vancomycin Trough 11.4 Blood Type Antibody Screen Crossmatch Assessment & Plan Assessment & Plan narrative: Lorraine Parra is an 78-year-old woman with a past medical history significant for hypertension, hyperlipidemia, hypothyroidism and a longstanding history of multiple myeloma who was directly admitted from Dr. Rousseau's office for worsening cough thought to have probable pneumonia and mildly altered mental status, she was admitted for hypoxemic respiratory failure. She was intubated in the emergency room, and after fluid resuscitation still had low blood pressure as so she was begun on Levophed. She remains critically ill at this time from primarily MRSA bacteremia. 1. Acute septic shock, present on admission. Improving. - source includes MRSA bacteremia and MRSA / pseudomonal pneumonia. -Patient met sepsis criteria with end-organ dysfunction acute hypoxemic respiratory failure and infectious source pneumonia and possible port site. -Early goal-directed therapy met including: IV fluid resuscitation and broad- spectrum antibiotics. -Patient received norepinephrine as she no longer was fluid responsive. Norepinephrine to be titrated off as tolerated with MAP goal of 65. -Surgery (Dr. Sood) consulted for port removal today, appreciate assistance. Family was updated at bedside on need for port-a-cath removal and tranfusion today. May need FFP prior to going to OR, pending INR. 2. Acute hypoxemic respiratory failure, present on admission. Active. -Patient presented in acute respiratory distress with hypoxemia and tachypnea per EMS and ED physician on CPAP which was ineffective and she was subsequently intubated. -Continue current ventilator settings and perform ABG as necessary to adjust ventilator settings. -Plan to perform daily sedation vacation and pressure support/spontaneous breathing trial to wean off ventilator. My hope is that she can be extubated once port site is removed and she clinically improves. She remains on minimal vent settings currently. 3. Acute parainfluenza with superimposed MRSA pneumonia and bacteremia, present on admission. Active. -Chest x-ray did not demonstrate any acute cardiopulmonary process. -CTA chest demonstrated bibasilar pneumonia L>R. -WBC 8.8 with 12% bands and procalcitonin 3.68 on admission. WBC stable today at 10.8 and procalcitonin trending down now 1.75. Continue to monitor WBC and procalcitonin daily. -Ordered complete pneumonia workup including: Respiratory viral PCR positive for parainfluenza 1. Strep pneumoniae and Legionella urine antigens, pending. Sputum culture with MRSA and [place]-sensitive pseudomonas. -Received cefepime 2 g IV x1 and vancomycin with dosing per pharmacist in ED. Continue vancomycin with dosing per pharmacist and will leave on ertapenem today, if improving will narrow tomorrow to a narrowed pseudomonal regimen. 4. Possible UTI, present on admission. Active. -Urinalysis appears possibly infected with urine culture pending. -Urine culture with lactobacillus and yeast. Patient remains appropriately covered on ertapenem. 5. 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 Active. -Etiology of INR elevation is unclear but likely due to recent antibiotic admi nistration with ciprofloxacin. -Initial hemoglobin 8.7. Patient is hemodynamically stable with no overt bleeding other than from knows where NG tube insertion was attempted. -Initial INR 12.3. Patient previously had elevated INR of 7.7 on 10/21 and was instructed by ED physician to discontinue warfarin until INR was within therapeutic range. Received vitamin K 10 mg IV x 1 in ED. Continue to monitor INR and CBC daily. -CT showed possible psoas hematoma however not significant in size, if continued decline in Hg consider repeat imaging. 6. Multiple myeloma, present on admission. Stable. -Patient is followed by Dr. Rousseau of oncology. -Disease progression has been indolent for years but more recently has been progressive. -appreciate recommendations by Dr. Rousseau of Oncology. Once extubated will discuss future options with patient and potential hospice. -Continue acyclovir 800 mg daily for Herpes Zoster prophylaxis and appears she may have had a recent flare. -pain control with fentanyl but patient reports pain. Continue fentanyl for now, will need rapid pain management once extubated. 7. Chronic kidney disease stage III, present on admission. Stable. -Patient is status post right nephrectomy for renal cell carcinoma. -Initial creatinine 1.6. Baseline creatinine 1.2-1.6. However Cr now improved to 1.0. -Avoid nephrotoxic agents and optimize renal perfusion. Patient received IV contrast for CT chest, abdomen and pelvis as above. -Continue to monitor renal function daily. 8. Hypertension, chronic, present on admission. Stable. -Continue propranolol 160 mg daily once off of Levophed and blood pressures are improved. 9. Hypothyroidism, chronic, present on admission. Stable. -Continue levothyroxine 150 mcg daily. 10. Peripheral neuropathy, present on admission. Stable. -Continue gabapentin 300 mg three times daily. Patient is also on tizanidine 2 mg every 6 hours as needed as an outpatient. 11. Depression, chronic, present on admission. Stable. -Continue sertraline 100 mg daily. 12. GERD, chronic, present on admission. Stable. -Continue Protonix 40 mg IV daily. 13. History of renal cell carcinoma. -She had right nephrectomy 09/2008 for renal cell carcinoma, high grade, papillary, with chronic renal insufficiency. I spent 40 minutes providing critical care management this patient. This excludes time spent in performing separately billed procedures. Disposition: Patient status guarded. Remains ICU status. Quality VTE Deep Vein Thrombosis/Pulmonary Embolism Present on Admission: No
[2019-10-26] MEDS: NOREPINEPHRINE 4 MG in DEXTROSE 5% IN WATER 250 ML 19.05 ML IV (12:32)
[2019-10-26 12:43] LABS: INR 2.4 (0.9-1.3); Prothrombin Time 28.7 SECONDS (10.1-12.7)
[2019-10-26] MEDS: CEFEPIME 2 GM in SODIUM CHLORIDE 0.9% 100 ML 200 ML IV (13:05)
--- NOTE | 2019-10-26 13:22 | PM.CN ---
History of Present Illness Consult details Date Patient Seen: 10/26/19 Time Patient Seen: 13:23 Chief complaint: Respiratory distress Reason for consult: Sepsis Narrative: The patient is a woman who apparently was admitted in septic shock who's presently hypotensive on pressor support with Levophed and on a ventilator. She has grown Pseudomonas and MRSA from her blood stream and she has presumed line sepsis from a Port-A-Cath as at least part of the cause of her sepsis. She has been under treatment for multiple myeloma which is the reason she has the Port-A-Cath. She was anticoagulated with marked elevation of her INR on admission. It is per improved and she has not received any or friend since admission. She takes it for history of atrial fibrillation. Meds Home Medications and Allergies Home Medications Medication Instructions Recorded Confirmed Type propranolol 160 mg PO DAILY #0 01/14/18 10/23/19 History sertraline 100 mg PO DAILY 03/30/18 10/23/19 History acetaminophen 650 mg PO Q8H 01/25/19 10/23/19 History cyanocobalamin (vitamin B-12) 1,000 mcg PO DAILY 01/25/19 10/23/19 History dexamethasone 20 mg PO QWEEK 06/29/19 10/23/19 History diclofenac sodium 1 g TOPICAL BID 06/29/19 10/23/19 History levothyroxine [Synthroid] 150 mcg PO DAILY 06/29/19 10/23/19 History ondansetron 4 mg PO Q8H PRN 06/29/19 10/23/19 History tizanidine 2 mg PO Q6H PRN 06/29/19 10/23/19 History warfarin See Rx Instructions .ROUTE .COMPLEX 06/29/19 10/23/19 History guaifenesin [Mucus Relief ER] 600 mg PO Q12HR PRN #15 tab 09/10/19 10/23/19 Rx Lactobacillus acidophilus 10 mg PO DAILY 10/21/19 10/23/19 History [Acidophilus] acyclovir 800 mg PO DAILYX7 10/21/19 10/23/19 History gabapentin 300 mg PO TID 10/21/19 10/23/19 History guaifenesin [Tussin Expectorant] 200 mg PO Q6HR PRN 10/21/19 10/23/19 History ipratropium bromide 1 spray INTRANASAL BID 10/21/19 10/23/19 History melatonin 6 mg PO BEDTIME 10/21/19 10/23/19 History omeprazole 20 mg PO DAILY 10/21/19 10/23/19 History oxycodone-acetaminophen [Percocet] 2 tab PO Q6H PRN 10/21/19 10/23/19 History polyvinyl alcohol 1 drp OPHTHALMIC (EYE) Q4HR PRN 10/21/19 10/23/19 History warfarin See Rx Instructions .ROUTE .COMPLEX 10/21/19 10/23/19 History multivitamin with minerals 1 tab PO DAILY 10/23/19 10/23/19 History oxycodone 20 mg PO Q6H PRN 10/23/19 10/23/19 History Allergies Allergy/AdvReac Type Severity Reaction Status Date / Time morphine Allergy Severe STROKE Verified 06/29/19 13:07 LIKE SYMPTOMS levofloxacin Allergy Intermediate HIVES Verified 06/29/19 13:07 adhesive [ADHESIVE] Allergy Mild BLISTERS Verified 06/29/19 13:07 celecoxib Allergy Mild RASH, Verified 06/29/19 13:07 SMALL BLISTERS, NAUSEA Penicillins Allergy Mild RASH Verified 06/29/19 13:07 phenazopyridine Allergy Mild VOMITING Verified 06/29/19 13:07 [From PYRIDIUM] Sulfa (Sulfonamide Allergy Mild BLISTERS Verified 06/29/19 13:07 Antibiotics) lactose [LACTOSE] Allergy Unknown Verified 06/29/19 13:07 Review of Systems Review of Systems Narrative: Unable to obtain ROS Unobtainable: due to endotracheal tube Exam Vital Signs (past 8 hours): - 10/26/19 05:30 10/26/19 06:00 10/26/19 06:51 Temperature Pulse Rate 95 H 89 87 Respiratory Rate 21 20 19 Blood Pressure 95/57 L 108/47 L 110/44 L Pulse Oximetry 97 97 98 10/26/19 07:00 10/26/19 08:00 10/26/19 08:57 Temperature 99.4 F Pulse Rate 86 96 H 93 H Respiratory Rate 19 23 22 Blood Pressure 114/48 L 120/53 L Pulse Oximetry 97 98 99 10/26/19 09:00 10/26/19 10:00 10/26/19 10:30 Temperature 97.9 F 99.9 F H Pulse Rate 96 H 92 H 95 H Respiratory Rate 19 20 18 Blood Pressure 108/48 L 109/47 L 113/59 L Pulse Oximetry 97 97 10/26/19 11:00 10/26/19 12:00 10/26/19 13:00 Temperature 99.5 F 99.8 F H Pulse Rate 92 H 87 91 H Respiratory Rate 21 23 16 Blood Pressure 112/59 L 114/64 105/54 L Pulse Oximetry 97 97 96 Fraction of Inspired Oxygen 30 Oxygen Delivery Method Mechanical Ventilation Oxygen Flow Rate 100 Narrative Exam Narrative: Ventilated on an endotracheal tube. She has infusion into her Port-A-Cath in left infraclavicular area. Lungs harsh rhonchi throughout. Heart regular rate and rhythm I don't appreciate a murmur or gallop. Her abdomen is protuberant soft. She has in addition to the endotracheal tube a feeding tube. She is clearly sedated at this time. Objective Labs Result Diagrams: 10/26/19 04:50 10/26/19 04:50 Labs: Laboratory Results - last 24 hr 10/23/19 10/24/19 10/24/19 23:20 06:00 09:40 WBC RBC Hgb Hct MCV MCH MCHC RDW Plt Count Neut % (Auto) Lymph % (Auto) [place] % (Auto) Eos % (Auto) Baso % (Auto) Lymph # (Auto) [place] # (Auto) Baso # (Auto) Total Counted Seg Neutrophils % Band Neutrophils % Lymphocytes % (Manual) Monocytes % (Manual) Metamyelocytes % Neutrophils # (Manual) Smudge Cells Toxic Granulation Dohle Bodies RBC Morphology Hypochromasia Anisocytosis PT INR ABG pH 7.34 L 7.33 L 7.37 ABG pCO2 24.7 L* 25.8 L ABG pO2 86 94 87 ABG HCO3 13 L 14 L 13 L ABG Total CO2 14 L 14 L 14 L ABG O2 Saturation 96 97 97 ABG Base Excess -12.0 L -12.0 L -12.0 L FiO2 30 30 30 Sodium Potassium Chloride Carbon Dioxide BUN Creatinine Estimated GFR BUN/Creatinine Ratio Glucose Calcium Phosphorus Magnesium Total Bilirubin Conjugated Bilirubin Unconjugated Bilirubin AST ALT Alkaline Phosphatase Total Protein Albumin Globulin Albumin/Globulin Ratio Procalcitonin Vancomycin Trough Blood Type Antibody Screen Crossmatch 10/25/19 10/26/19 10/26/19 05:10 04:50 04:50 WBC 16.3 H D RBC 2.45 L Hgb 7.1 L Hct 21.8 L MCV 88.9 MCH 29.0 MCHC 32.6 RDW 16.7 H Plt Count 160 Neut % (Auto) Not Reportable Lymph % (Auto) Not Reportable [place] % (Auto) Not Reportable Eos % (Auto) Not Reportable Baso % (Auto) Not Reportable Lymph # (Auto) Not Reportable [place] # (Auto) Not Reportable Baso # (Auto) Not Reportable Total Counted 100 Seg Neutrophils % 75.0 H Band Neutrophils % 10.0 H Lymphocytes % (Manual) 8.0 L Monocytes % (Manual) 5.0 Metamyelocytes % 2.0 H Neutrophils # (Manual) 12565 H Smudge Cells 1+ H Toxic Granulation Present H Dohle Bodies 1+ H RBC Morphology See below Hypochromasia 1+ H Anisocytosis 1+ H PT INR ABG pH 7.44 ABG pCO2 23.7 L* ABG pO2 105 H ABG HCO3 16 L ABG Total CO2 17 L ABG O2 Saturation 98 ABG Base Excess -8.0 L FiO2 0.30 Sodium Potassium Chloride Carbon Dioxide BUN Creatinine Estimated GFR BUN/Creatinine Ratio Glucose Calcium Phosphorus Magnesium Total Bilirubin Conjugated Bilirubin Unconjugated Bilirubin AST ALT Alkaline Phosphatase Total Protein Albumin Globulin Albumin/Globulin Ratio Procalcitonin 1.32 H Vancomycin Trough Blood Type Antibody Screen Crossmatch 10/26/19 10/26/19 10/26/19 04:50 05:02 08:10 WBC RBC Hgb Hct MCV MCH MCHC RDW Plt Count Neut % (Auto) Lymph % (Auto) [place] % (Auto) Eos % (Auto) Baso % (Auto) Lymph # (Auto) [place] # (Auto) Baso # (Auto) Total Counted Seg Neutrophils % Band Neutrophils % Lymphocytes % (Manual) Monocytes % (Manual) Metamyelocytes % Neutrophils # (Manual) Smudge Cells Toxic Granulation Dohle Bodies RBC Morphology Hypochromasia Anisocytosis PT INR ABG pH 7.44 ABG pCO2 22.7 L* ABG pO2 89 ABG HCO3 16 L ABG Total CO2 16 L ABG O2 Saturation 97 ABG Base Excess -9.0 L FiO2 30 Sodium 137 Potassium 4.0 Chloride 112 H Carbon Dioxide 19 L BUN 28 H Creatinine 1.00 Estimated GFR 53.2 L BUN/Creatinine Ratio 28.0 H Glucose 271 H Calcium 7.5 L Phosphorus 2.2 L Magnesium 1.8 Total Bilirubin 0.9 Conjugated Bilirubin 0.0 Unconjugated Bilirubin 0.4 AST 20 ALT 11 Alkaline Phosphatase 139 H Total Protein 5.1 L Albumin 2.2 L Globulin 2.9 Albumin/Globulin Ratio 0.8 L Procalcitonin Vancomycin Trough Blood Type A Positive Antibody Screen Negative Crossmatch See Detail 10/26/19 10/26/19 08:15 12:20 WBC RBC Hgb Hct MCV MCH MCHC RDW Plt Count Neut % (Auto) Lymph % (Auto) [place] % (Auto) Eos % (Auto) Baso % (Auto) Lymph # (Auto) [place] # (Auto) Baso # (Auto) Total Counted Seg Neutrophils % Band Neutrophils % Lymphocytes % (Manual) Monocytes % (Manual) Metamyelocytes % Neutrophils # (Manual) Smudge Cells Toxic Granulation Dohle Bodies RBC Morphology Hypochromasia Anisocytosis PT 28.7 H D INR 2.4 H ABG pH ABG pCO2 ABG pO2 ABG HCO3 ABG Total CO2 ABG O2 Saturation ABG Base Excess FiO2 Sodium Potassium Chloride Carbon Dioxide BUN Creatinine Estimated GFR BUN/Creatinine Ratio Glucose Calcium Phosphorus Magnesium Total Bilirubin Conjugated Bilirubin Unconjugated Bilirubin AST ALT Alkaline Phosphatase Total Protein Albumin Globulin Albumin/Globulin Ratio Procalcitonin Vancomycin Trough 11.4 Blood Type Antibody Screen Crossmatch Assessment & Plan Assessment & Plan narrative: Patient is quite ill. I think removal of the line is imperative but I would like her coags to be better than they are now. I would also like an improvement in her mad a crit of possible. Will discuss with anesthesia in the OR whether this can be done in the ICU room. Will discuss with her power of surface boss daughter.
--- NOTE | 2019-10-26 14:44 | PC.NURSE ---
Addendum entered by Ace Ortiz R.N. 10/26/19 14:51: Attempt x2 to initiate PIV access in anticipation of port removal and need for add'l access. Both attempts unsucessful. Pt tolerated well. Order is in place for DI RN to place midline. Original Note: Intubated to vent and sedated on propofol. Pt awakens easily to voice and answers questions seemingly appropriately with nodding head yes and no. Dr. Blveins rounded. Discussed labs, VS, ventilatory requirements, tube feeds, blood culture results, pressor needs. Orders received for consult to gen sx to remove port, transfuse 1 unit of prbcs, and add'l labs/blood cxs, NPO. 1 unit PRBCs infused. Pt tolerated well. Dr. Sood rounded. Orders received to transfuse FFP in preparation for port removal. Dr. Sood plans to do this at the bedside. Explained plan of care to patient. She nods head yes that she understands.
--- NOTE | 2019-10-26 14:47 | CM.DPNOTE ---
DCP Cont: Reviewed medical POC in multidisciplinary rounds this morning, Dr Blevins anticipates pt will remain intubated at least through tomorrow possibly the weekend. Surgery has been consulted to discuss removal of pt's port which is suspected to be the source of pt's current infection. Dr Blevins indicated in rounds that pt's dtr/DPOA FATEMEH has been very reasonable and realistic in discussing her mother's guarded prognosis. SHAAN Bello asks this morning in rounds; are we upholding pt's advanced directives ? This PENSION AGENT and other multidisciplinary staff suggest a Palliative Care Consult, if available, to discuss goals of care w/pt's family and review best practice for symptom management ? Dr Blevins agrees and requests consult if available. SHAAN Bello investigating. Meanwhile, this PENSION AGENT placed call to Dtr Fatemeh, introduced role and took the opportunity to review pt and family's goals of care. Fatemeh was quite eloquent and summarized the medical POC as she understands it; she is hopeful that pt can be extubated soon, infection managed and then [facility]family cannot care for pt at her home. Fatemeh explained when pt was alert and oriented, she discussed wishes w/ her dtrs as wanting to have every chance at life that was available. Fatemeh describes her mom as stubborn and needing to have control about decisions. Fatemeh admits pt's cognition has changed dramatically but pt has been able to open her eyes during sedation vacation and acknowledge family, Fatemeh is still doing her best to honor her mother's wishes to include an attempt to get pt through current tenuous state and onto Hospice/comfort path until her . This PENSION AGENT then asks if Fatemeh has been presented w/the treatment option of comfort to begin here at ? With the intention of allowing a natural dying process to begin here... Fatemeh grateful to have this option but she does not want medical POC to change at this time. She understands she can reevaluate if providers are unable to safely extubate over the next 48-72 hours. PENSION AGENT team will follow closely. Yulia Bowman gives this PENSION AGENT or PENSION AGENT team permission to speak w/her sister Jenna if she were to call w/questions or request updates on pt's prognosis. DPOA is Dtr Fatemeh, who resides in [place]. She will plan to visit pt again tomorrow or possibly over the w/e depending on medical status. NIMA Santamaria
[2019-10-26] MEDS: fentaNYL 50 MCG/PATCH TOP (16:28)
[2019-10-26] MEDS: BUPIVACAINE 0.5% (PF) VIAL 30 ML INJ (17:08)
--- NOTE | 2019-10-26 17:32 | PM.OP.1 ---
Operative Date/Time/Diagnoses Date of procedure: 10/26/19 Time of procedure: 17:32 Pre-op diagnosis: Sepsis with MRSA in the blood stream secondary to possible infection of a Port-A-Cath Post-op diagnosis: same Procedure & Clinicians Procedure: Port-A-Cath removal Same procedure as scheduled: Yes Indications: Septic patient with Pseudomonas and MRSA in her lung and MRSA cultured from her blood stream. Concern over aseptic port was expressed and I was asked to remove it Click Yes if Unassisted: Yes Anesthesia Type: MAC +/- Operative Notes Findings: Pus in the space around the Port-A-Cath. Clot in the catheter tip was visible upon removal Closure Type: not applicable (Port site left open due to the purulence found) Specimen(s): other (Cultures and the Port-A-Cath tip for culture) Estimated Blood Loss (mL): 15 Procedure in detail: The patient was already intubated on a propofol drip. The anesthesiologist provided monitored anesthesia care with additional medications as needed. The patient was prepped and draped in her bed in the ICU. This was chosen rather than going to the operating room due to the nature of the procedure(local procedure requiring little time) and the degree of illness of the patient. The patient was prepped and draped in the usual fashion. Local anesthetic was infiltrated in a field block fashion around the port. transverse incision was made through the old scar and dissected down to the level of the catheter purulence material welled up from the wound and was cultured. A pursestring stitch was placed around the catheter as it entered the subcu superior to the incision. The catheter was pulled without difficulty and the tip was noted to have material presumptively clot in it and was submitted in a sterile cup with a small amount of saline for culture. There was back bleeding from the tunnel and the suture which had been placed in a pursestring fashion was cinched down to stop this bleeding. The port was then from surrounding structures and removed. A portion of the wall was also removed and cautery was used to control the bleeding. The patient had an infusion of FFP nearly completed at the time we started and an additional unit was having as soon as we finished. Because of the pus within the wound it was irrigated and packed open with saline gauze. Patient appeared to tolerate the procedure well. There was very little change in her status between pre and postop. Daughter was called to inform her that everything had gone well. Complications: none Post-operative Condition: stable Disposition: ICU Plan for aftercare: Continued ICU care with saline wet to dry dressings initially
--- NOTE | 2019-10-26 17:48 | SUR.OPER ---
case performed in patient room ICCU 103
[2019-10-26 17:58] LABS: Strep pneumoniae Ag, Urine NOT DETECTED
[2019-10-26] MEDS: PROPOFOL 1,000 MG/100 ML VIAL 15 MG IV (18:52)
[2019-10-26] MEDS: INSULIN GLARGINE 100 UNIT/ML 10ML VIAL 20 UNIT SUBCUT (21:24)
[2019-10-27] VITALS (39 sets, daily range): BP systolic 94–128; BP diastolic 42–66; PULSE 80–93; RESP 16–21; TEMP 36.1–37.7; O2SAT 95–100
[2019-10-27] MEDS: CEFEPIME 2 GM in SODIUM CHLORIDE 0.9% 100 ML 200 ML IV ×2 (00:32→12:45)
[2019-10-27] MEDS: ALBUTEROL/IPRATROPIUM 3 ML AMPUL INH ×6 (02:12→22:46)
[2019-10-27] MEDS: PROPOFOL 1,000 MG/100 ML VIAL 12 MG IV ×3 (02:28→16:24)
[2019-10-27] MEDS: fentaNYL 100 MCG/2 ML INJ 50 MCG IV (04:58)
[2019-10-27 05:28] LABS: INR 2.3 (0.9-1.3)
[2019-10-27 05:30] LABS: Add Manual Diff / Slide Review NO; Basophils Absolute Auto 0 /uL (0-100); Eosinophils Absolute Auto 0 /uL (0-450); Eosinophils Percent Auto 0.5 % (2-4); Lymphocytes Absolute Auto 500 /uL (1100-4500); Lymphocytes Percent Auto 5.2 % (25-40); Mean Corpuscular HGB Conc 33.5 % (30-36); Mean Corpuscular Hemoglobin 29.4 PG (26-34); Mean Corpuscular Volume 87.7 fL (80-100); Monocytes Absolute Auto 300 /uL (0-900); Monocytes Percent Auto 3.7 % (3-14); Neutrophils Absolute Auto 8600 /uL (1500-7000); Neutrophils Percent Auto 90.6 % (50-75); Platelet Count 123 X10^3/uL (150-400); Red Blood Cell Count 2.33 X10^6/uL (4.0-5.2); Red Cell Distribution Width 16.9 % (11.6-14.8); White Blood Cell Count 9.5 X10^3/uL (4.5-11.0)
[2019-10-27 05:36] LABS: Alanine Aminotransferase 10 IU/L (<35); Albumin 2.1 g/dL (3.5-5.0); Albumin Globulin Ratio 0.8 (1.0-2.8); Alkaline Phosphatase 91 U/L (38-126); Aspartate Aminotransferase 21 IU/L (14-36); BUN Creatinine Ratio 25.6 (6-22); Bilirubin Unconjugated 0.5 mg/dL (0.0-1.1); Blood Urea Nitrogen 23 mg/dL (7-17); Calcium 7.3 mg/dL (8.4-10.2); Carbon Dioxide 19 mmol/L (22-32); Chloride 111 mmol/L (98-107); Estimated Glomerular Filt Rate > 60.0 mL/min (>60); Globulin 2.8 g/dL (1.7-4.1); Glucose 114 mg/dL (80-110); HEMOLYSIS < 15 (0-50); Magnesium 1.6 mg/dL (1.6-2.3); Potassium 3.5 mmol/L (3.4-5.1); Sodium 135 mmol/L (137-145); Total Protein 4.9 g/dL (6.3-8.2)
[2019-10-27 05:38] LABS: HCO3 ABG 17 mmol/L (22-26); PCO2 ABG 25.7 mmHg (35-45); PO2 ABG 72 mmHg (80-100); TCO2 ABG 17 mmol/L (21-31); pH ABG 7.42 (7.35-7.45)
[2019-10-27 05:39] LABS: Fractionated Inspired Oxygen 25; Oxygen Saturation ABG 95 % (95-100)
[2019-10-27 05:53] LABS: Procalcitonin 1.26 ng/mL (<0.5)
[2019-10-27 06:07] LABS: Hematocrit 20.5 % (36-46); Hemoglobin 6.9 g/dL (12.0-16.0)
[2019-10-27] MEDS: VANCOMYCIN 1,250 MG in SODIUM CHLORIDE 0.9% 250 ML IV (06:24)
[2019-10-27] MEDS: LEVOTHYROXINE 150 MCG TABLET PO (06:25)
--- NOTE | 2019-10-27 08:13 | P.PN_ITS ---
Subjective Subjective Date Patient Seen: 10/27/19 Time Patient Seen: 07:50 Interval history: Lorraine Parra is an 79-year-old woman with a past medical history significant for hypertension, hyperlipidemia, hypothyroidism, longstanding history of multiple myeloma, renal cell carcinoma status post right nephrectomy 09/2008, and CKD who presented to the ED via EMS from [facility] for acute respiratory distress. She was found to be in septic shock from multiple sources. She has a polymicrobial pneumonia, including MRSA, Pseudomonas, H flu, and parainfluenza. She also has MRSA bacteremia. Interval History: Yesterday surgery was consulted and they removed the patient's port at bedside. They noted doris pus from the catheter. Cultures from yesterday are still pending, and she has repeat blood cultures again today. Her hemoglobin was 7.1 yesterday and she was transfused, as well as being given FFP prior to the procedure. This morning her hemoglobin dropped to 6.9 despite the 1 unit, this is probably due to her surgical procedure. She is hemodynamically stable this morning, and is off of pressors. Yesterday she became tachypneic not long after starting a breathing trial. She complained of a lot of pain in her back, and she was started on a fentanyl patch in the hope that this will help with her pain control. We will attempt another breathing trial after her transfusion this morning. Exam Vital Signs (past 8 hours): - 10/27/19 01:00 10/27/19 02:00 10/27/19 02:13 Temperature Pulse Rate 90 86 85 Respiratory Rate 17 16 16 Blood Pressure 104/49 L 107/50 L Pulse Oximetry 100 98 99 10/27/19 03:00 10/27/19 04:00 10/27/19 05:00 Temperature 98.6 F 98.9 F Pulse Rate 86 89 88 Respiratory Rate 16 17 16 Blood Pressure 107/50 L 112/64 94/50 L Pulse Oximetry 98 99 99 10/27/19 05:14 10/27/19 06:00 Temperature Pulse Rate 90 88 Respiratory Rate 20 16 Blood Pressure 108/54 L Pulse Oximetry 99 98 Fraction of Inspired Oxygen 25 Oxygen Delivery Method Mechanical Ventilation Oxygen Flow Rate 100 Narrative Exam Narrative: General: Elderly female lying in bed and in no acute distress, intubated and sedated. Follows commands as noted below. HEENT: Normocephalic, atraumatic. External ears without defect. Pupils equal, round, and reactive to light. Anicteric sclerae and moist conjunctivae. ET and OG tube in place. Neck: Supple with full range of motion. No jugular venous distension. No lymphadenopathy or thyromegaly. Cardiovascular: Regular rate and rhythm without murmurs, rubs, or gallops appreciated. Port-A-Cath in left chest without surrounding erythema. Pulmonary: Coarse lung sounds throughout with L >R today. No wheeze or crackles. Abdomen: Soft, bowel sounds present, nondistended. No hepatosplenomegaly or masses appreciated. Extremities: No clubbing, cyanosis, or edema. Skin: Normal temperature, turgor, and texture; no ulcers or subcutaneous nodules appreciated. Neurological: Intubated and sedated. When sedation is lightened patient follows commands and seems appropriate. This morning she seemed somewhat more groggy, but still nodding appropriately to questions. Objective Labs Result Diagrams: 10/27/19 04:45 10/27/19 04:45 Labs: Laboratory Results - last 24 hr 10/23/19 10/26/19 10/26/19 17:23 08:10 08:15 WBC RBC Hgb Hct MCV MCH MCHC RDW Plt Count Neut % (Auto) Lymph % (Auto) [place] % (Auto) Eos % (Auto) Baso % (Auto) Neut # (Auto) Lymph # (Auto) [place] # (Auto) Eos # (Auto) Baso # (Auto) PT INR ABG pH ABG pCO2 ABG pO2 ABG HCO3 ABG Total CO2 ABG O2 Saturation ABG Base Excess FiO2 Sodium Potassium Chloride Carbon Dioxide BUN Creatinine Estimated GFR BUN/Creatinine Ratio Glucose Calcium Phosphorus Magnesium Total Bilirubin Conjugated Bilirubin Unconjugated Bilirubin AST ALT Alkaline Phosphatase Total Protein Albumin Globulin Albumin/Globulin Ratio Procalcitonin Vancomycin Trough 11.4 S. pneumoniae Ag Intrp Not detected Blood Type A Positive Antibody Screen Negative Crossmatch See Detail 10/26/19 10/27/19 10/27/19 12:20 04:45 04:45 WBC 9.5 RBC 2.33 L Hgb 6.9 L* Hct 20.5 L* MCV 87.7 MCH 29.4 MCHC 33.5 RDW 16.9 H Plt Count 123 L Neut % (Auto) 90.6 H Lymph % (Auto) 5.2 L [place] % (Auto) 3.7 Eos % (Auto) 0.5 L Baso % (Auto) 0.0 Neut # (Auto) 8600 H Lymph # (Auto) 500 L [place] # (Auto) 300 Eos # (Auto) 0 Baso # (Auto) 0 PT 28.7 H D INR 2.4 H ABG pH ABG pCO2 ABG pO2 ABG HCO3 ABG Total CO2 ABG O2 Saturation ABG Base Excess FiO2 Sodium Potassium Chloride Carbon Dioxide BUN Creatinine Estimated GFR BUN/Creatinine Ratio Glucose Calcium Phosphorus Magnesium Total Bilirubin Conjugated Bilirubin Unconjugated Bilirubin AST ALT Alkaline Phosphatase Total Protein Albumin Globulin Albumin/Globulin Ratio Procalcitonin 1.26 H Vancomycin Trough S. pneumoniae Ag Intrp Blood Type Antibody Screen Crossmatch 10/27/19 10/27/19 10/27/19 04:45 04:45 05:14 WBC RBC Hgb Hct MCV MCH MCHC RDW Plt Count Neut % (Auto) Lymph % (Auto) [place] % (Auto) Eos % (Auto) Baso % (Auto) Neut # (Auto) Lymph # (Auto) [place] # (Auto) Eos # (Auto) Baso # (Auto) PT 27.0 H INR 2.3 H ABG pH 7.42 ABG pCO2 25.7 L ABG pO2 72 L ABG HCO3 17 L ABG Total CO2 17 L ABG O2 Saturation 95 ABG Base Excess -8.0 L FiO2 25 Sodium 135 L Potassium 3.5 Chloride 111 H Carbon Dioxide 19 L BUN 23 H Creatinine 0.90 Estimated GFR > 60.0 BUN/Creatinine Ratio 25.6 H Glucose 114 H D Calcium 7.3 L Phosphorus 3.0 Magnesium 1.6 Total Bilirubin 1.0 Conjugated Bilirubin 0.0 Unconjugated Bilirubin 0.5 AST 21 ALT 10 Alkaline Phosphatase 91 Total Protein 4.9 L Albumin 2.1 L Globulin 2.8 Albumin/Globulin Ratio 0.8 L Procalcitonin Vancomycin Trough S. pneumoniae Ag Intrp Blood Type Antibody Screen Crossmatch Assessment & Plan Assessment & Plan narrative: Lorraine Parra is an 78-year-old woman with a past medical history significant for hypertension, hyperlipidemia, hypothyroidism and a longstanding history of multiple myeloma who was directly admitted from Dr. Rousseau's office for worsening cough thought to have probable pneumonia and mildly altered mental status, she was admitted for hypoxemic respiratory failure. She was intubated in the emergency room, and after fluid resuscitation still had low blood pressure as so she was begun on Levophed. She remains critically ill at this time from primarily MRSA bacteremia. 1. Acute septic shock, present on admission. Improving. - source includes MRSA bacteremia and MRSA / pseudomonal / H. Flu / parainfluenza pneumonia. -Patient met sepsis criteria with end-organ dysfunction acute hypoxemic respiratory failure and infectious source pneumonia and possible port site. -Early goal-directed therapy met including: IV fluid resuscitation and broad- spectrum antibiotics. -Patient received norepinephrine as she no longer was fluid responsive. She is off of norepinephrine this morning. -Surgery (Dr. Sood) consulted for port removal, appreciate assistance. Port was removed on 10/26/2019 at bedside, with doris pus noted. Catheter and purulence was sent for culture. 2. Acute hypoxemic respiratory failure, present on admission. Active. -Patient presented in acute respiratory distress with hypoxemia and tachypnea per EMS and ED physician on CPAP which was ineffective and she was subsequently intubated. -Continue current ventilator settings and perform ABG as necessary to adjust ventilator settings. -Plan to perform daily sedation vacation and pressure support/spontaneous breathing trial to wean off ventilator. My hope is that she can be extubated now that port has been removed, after being transfused today, however I anticipate more likely extubation tomorrow. She remains on minimal vent settings currently. 3. Acute parainfluenza with superimposed MRSA /pseudomonal/H flu pneumonia and MRSA bacteremia, present on admission. Active. -Chest x-ray did not demonstrate any acute cardiopulmonary process. -CTA chest demonstrated bibasilar pneumonia L>R. -WBC 8.8 with 12% bands and procalcitonin 3.68 on admission. WBC stable today at 10.8 and procalcitonin trending down now. Continue to monitor WBC and procalcitonin daily. -Ordered complete pneumonia workup including: Respiratory viral PCR positive for parainfluenza 1. Strep pneumoniae and Legionella urine antigens, pending. Sputum culture with MRSA and [place]-sensitive pseudomonas and H flu. -Received cefepime 2 g IV x1 and vancomycin with dosing per pharmacist in ED. Continue vancomycin with dosing per pharmacist and has been changed to cefepime which will cover pseudomonas and H. flu. 4. Possible UTI, present on admission. Active. -Urinalysis appears possibly infected with urine culture pending. -Urine culture with lactobacillus and yeast. Patient remains appropriately covered on cefepime. 5. 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 Active. -Etiology of INR elevation is unclear but likely due to recent antibiotic administration with ciprofloxacin. -Initial hemoglobin 8.7. Patient is hemodynamically stable with no overt bleeding other than from knows where NG tube insertion was attempted. -Initial INR 12.3. Patient previously had elevated INR of 7.7 on 10/21 and was instructed by ED physician to discontinue warfarin until INR was within therapeutic range. Received vitamin K 10 mg IV x 1 in ED. Continue to monitor INR and CBC daily. -CT showed possible psoas hematoma however not significant in size, if continued decline in Hg consider repeat imaging. 6. Multiple myeloma, present on admission. Stable. -Patient is followed by Dr. Rousseau of oncology. -Disease progression has been indolent for years but more recently has been progressive. -appreciate recommendations by Dr. Rousseau of Oncology. Once extubated will discuss future options with patient and potential hospice. -Continue acyclovir 800 mg daily for Herpes Zoster prophylaxis and appears she may have had a recent flare. -pain control with fentanyl but patient reports pain. She was started on fentanyl patch which she will likely need to continue for pain controll from her myeloma. 7. Chronic kidney disease stage III, present on admission. Stable. -Patient is status post right nephrectomy for renal cell carcinoma. -Initial creatinine 1.6. Baseline creatinine 1.2-1.6. However Cr now improved to 0.9 -Avoid nephrotoxic agents and optimize renal perfusion. Patient received IV contrast for CT chest, abdomen and pelvis as above. -Continue to monitor renal function daily. 8. Hypertension, chronic, present on admission. Stable. -Continue propranolol 160 mg daily once off of Levophed and blood pressures are improved. 9. Hypothyroidism, chronic, present on admission. Stable. -Continue levothyroxine 150 mcg daily. 10. Peripheral neuropathy, present on admission. Stable. -Continue gabapentin 300 mg three times daily. Patient is also on tizanidine 2 mg every 6 hours as needed as an outpatient. 11. Depression, chronic, present on admission. Stable. -Continue sertraline 100 mg daily. 12. GERD, chronic, present on admission. Stable. -Continue Protonix 40 mg IV daily. 13. History of renal cell carcinoma. -She had right nephrectomy 09/2008 for renal cell carcinoma, high grade, papillary, with chronic renal insufficiency. I spent 40 minutes providing critical care management this patient. This excludes time spent in performing separately billed procedures. Disposition: Patient status guarded. Remains ICU status. Quality VTE Deep Vein Thrombosis/Pulmonary Embolism Present on Admission: No
--- NOTE | 2019-10-27 10:28 | PC.NURSE ---
Sedation vacation perfomed at 0800. Pt able to open eyes and follow commands. Provided reorientation and updated on plan of care. Dr. Blevins rounded. Plan to re evaluate appropriateness of SBT after PRBCs transfused.
[2019-10-27] MEDS: SERTRALINE 50 MG TABLET 100 MG PO (10:33)
[2019-10-27] MEDS: GABAPENTIN 300 MG CAPSULE PO ×3 (10:34→21:17)
[2019-10-27] MEDS: PANTOPRAZOLE 40 MG VIAL IV (10:34)
[2019-10-27] MEDS: fentaNYL 100 MCG/2 ML INJ IV ×4 (10:36→21:16)
--- NOTE | 2019-10-27 11:51 | DIET.PN ---
Dietary Progress Note RD f/u pt was taken off TFs r/t pressor use and MAP<60, now pt has had port-a-cath removed, is no longer on pressors and has resumed TFs at rate of 15mL/h to be titrated up to goal of 35mL/h of Glucerna 1.2 today as pt tolerates feedings. Nutrition Diagnosis: Inadequate oral intake r/t inability to consume PO nourishments aeb pt on ventilator, sedation vacation unsuccessful after 10min. Patient Metrics Height: 64 in [place] body weight: 54.7 kg (70% above IBW) Actual body weight: 93.2 kg BMI: 35.1 kg/m2 (NHLBI status - Obesity Class II) Nutritional dosing weight: 64.3 kg Nutritional Requirements Goal kcal/k kcal/kg Goal protein/k.8 gm/kg Fluid restriction: None Current propofol: Approximately 10 mcg/kg/min (148 kcal/day) Enteral Nutrition Recommendations Glucerna (1.2 Jesus) at 35 mL/hr - Start at 15 mL/hr, titrate by 10 mL/hr every 6 hours to goal - 250 mL free water flushes every 4 hours (62.5 mL/hr) - Reassess goal feed rate once the patient is no longer receiving propofol - Provides 1156 kcal (18 kcal/kg) (including propofol) and 50 gm (0.8 gm/kg) of protein - Enteral feed and flushes provide 2180 mL (34 mL/kg) of free water Nutritional Monitor Parameters - Elevate head of bed 30-45 degrees while feeding - Check gastric residuals every 4 hours when initiating feeding. May check every 6-8 hours once goal rate is achieved - Hold gastric feeds for residuals more than 500 mL. Avoid holding feeds for residuals < 500 mL without other signs of intolerance
[2019-10-27] MEDS: MAGNESIUM SULFATE 2 GM/50 ML PIGGYBACK IV (14:41)
[2019-10-27] MEDS: POTASSIUM CHLORIDE 20 MEQ/15 ML UDC 40 MEQ PO (15:37)
[2019-10-27] MEDS: INSULIN GLARGINE 100 UNIT/ML 10ML VIAL 20 UNIT SUBCUT (22:55)
[2019-10-28] VITALS (23 sets, daily range): BP systolic 102–128; BP diastolic 44–65; PULSE 80–114; RESP 14–31; TEMP 36.1–37.3; O2SAT 93–100
[2019-10-28] MEDS: CEFEPIME 2 GM in SODIUM CHLORIDE 0.9% 100 ML 200 ML IV ×3 (00:44→23:50)
[2019-10-28] MEDS: fentaNYL 100 MCG/2 ML INJ IV ×2 (00:45→10:34)
[2019-10-28] MEDS: PROPOFOL 1,000 MG/100 ML VIAL 15 MG IV (00:45)
[2019-10-28] MEDS: ALBUTEROL/IPRATROPIUM 3 ML AMPUL INH ×6 (03:55→23:57)
[2019-10-28 05:28] LABS: Add Manual Diff / Slide Review NO; Basophils Absolute Auto 0 /uL (0-100); Basophils Percent Auto 0.1 % (0-2); Eosinophils Absolute Auto 100 /uL (0-450); Eosinophils Percent Auto 0.8 % (2-4); Lymphocytes Absolute Auto 600 /uL (1100-4500); Lymphocytes Percent Auto 5.5 % (25-40); Mean Corpuscular HGB Conc 33.7 % (30-36); Mean Corpuscular Hemoglobin 29.5 PG (26-34); Mean Corpuscular Volume 87.5 fL (80-100); Monocytes Absolute Auto 400 /uL (0-900); Monocytes Percent Auto 4.1 % (3-14); Neutrophils Absolute Auto 9600 /uL (1500-7000); Neutrophils Percent Auto 89.5 % (50-75); Platelet Count 135 X10^3/uL (150-400); Red Cell Distribution Width 16.3 % (11.6-14.8); White Blood Cell Count 10.7 X10^3/uL (4.5-11.0)
[2019-10-28 05:34] LABS: INR 1.8 (0.9-1.3); Prothrombin Time 21.2 SECONDS (10.1-12.7)
[2019-10-28 05:46] LABS: Hematocrit 23.7 % (36-46)
[2019-10-28 05:47] LABS: Alanine Aminotransferase 11 IU/L (<35); Albumin 2.1 g/dL (3.5-5.0); Albumin Globulin Ratio 0.7 (1.0-2.8); Alkaline Phosphatase 106 U/L (38-126); Aspartate Aminotransferase 26 IU/L (14-36); BUN Creatinine Ratio 25.6 (6-22); Bilirubin Total 0.6 mg/dL (0.2-1.3); Bilirubin Unconjugated 0.3 mg/dL (0.0-1.1); Blood Urea Nitrogen 23 mg/dL (7-17); Calcium 7.6 mg/dL (8.4-10.2); Carbon Dioxide 18 mmol/L (22-32); Chloride 109 mmol/L (98-107); Estimated Glomerular Filt Rate > 60.0 mL/min (>60); Glucose 142 mg/dL (80-110); HEMOLYSIS < 15 (0-50); Phosphorous 3.5 mg/dL (2.8-4.1); Potassium 3.9 mmol/L (3.4-5.1); Sodium 133 mmol/L (137-145); Total Protein 5.1 g/dL (6.3-8.2)
[2019-10-28] MEDS: VANCOMYCIN 1,250 MG in SODIUM CHLORIDE 0.9% 250 ML IV (06:09)
[2019-10-28] MEDS: LEVOTHYROXINE 150 MCG TABLET PO (06:10)
[2019-10-28] MEDS: INSULIN ASPART 100 UNIT/ML INSULN PEN SUBCUT ×3 (06:12→17:48)
[2019-10-28 06:15] LABS: Procalcitonin 0.98 ng/mL (<0.5)
[2019-10-28] MEDS: PROPOFOL 1,000 MG/100 ML VIAL 17 MG IV (06:28)
--- NOTE | 2019-10-28 06:46 | PC.NURSE ---
Credit Negotiator Note-Patient remains on ventilator, FIO2 30% TV 450 PEEP 5 RR 16, mostly rides vent with RR of 16, will increase to 20 occasionally when restless. Propofol gtt is titrated 20-30mcg/min to keep patient comfortable with RASS -2. Nodded once to pain at 0130, IV Fentanyl given-effective. Tube feed residual 210ml at 0230, dose held for 2 hours, rechecked at 0500 for residual of 20ml, and restarted.
[2019-10-28 08:05] LABS: Acinetobacter baumannii Not Detected (Not Detect); Candida albicans Not Detected (Not Detect); Candida glabrata Not Detected (Not Detect); Candida krusei Not Detected (Not Detect); Candida parapsilosis Not Detected (Not Detect); Candida tropicalis Not Detected (Not Detect); E. coli Not Detected (Not Detect); Enterobacter cloacae complex Not Detected (Not Detect); Enterobacteriaceae species Not Detected (Not Detect); Enterococcus species Not Detected (Not Detect); Haemophilus influenzae Not Detected (Not Detect); KPC (carbapenem-resist gene) Not Detected (Not Detect); Listeria monocytogenes Not Detected (Not Detect); Methicillin-resistant gene Detected (Not Detect); Neisseria meningitidis Not Detected (Not Detect); Proteus species Not Detected (Not Detect); Pseudomonas aeruginosa Not Detected (Not Detect); Serratia marcescens Not Detected (Not Detect); Staphylococcus species Detected (Not Detect); Streptococcus agalactiae (Gr B Not Detected (Not Detect); Streptococcus pneumonia Not Detected (Not Detect); Streptococcus pyogenes (Gr A) Not Detected (Not Detect); Streptococcus species Not Detected (Not Detect); Vancomycin-rest genes A/B Not Detected (Not Detect)
[2019-10-28] MEDS: GABAPENTIN 300 MG CAPSULE PO ×3 (08:22→19:42)
[2019-10-28] MEDS: PANTOPRAZOLE 40 MG VIAL IV (08:22)
[2019-10-28] MEDS: SERTRALINE 50 MG TABLET 100 MG PO (08:22)
--- NOTE | 2019-10-28 10:02 | PM.PN.1 ---
Subjective Subjective Date Patient Seen: 10/28/19 Time Patient Seen: 10:03 Interval history: Lorraine Parra is an 79-year-old woman with a past medical history significant for hypertension, hyperlipidemia, hypothyroidism, longstanding history of multiple myeloma, renal cell carcinoma status post right nephrectomy 09/2008, and CKD who presented to the ED via EMS from [facility] for acute respiratory distress. She was found to be in septic shock from multiple sources. She has a polymicrobial pneumonia, including MRSA, Pseudomonas, H flu, and parainfluenza. She also has MRSA bacteremia. Interval History: Blood cultures from yesterday again grew Staph aureus. The patient is overall improving. Her white count has improved. Her hemoglobin after transfusion yesterday came up to 8 this morning. Her lungs sound improved this morning. She tolerated a breathing trial this morning, and once daughter arise patient will be extubated today. Plan is to make her DNR/DNI after extubation today. Exam Vital Signs (past 8 hours): - 10/28/19 03:00 10/28/19 04:00 10/28/19 05:00 Temperature 97.8 F Pulse Rate 87 89 92 H Respiratory Rate 18 16 17 Blood Pressure 113/55 L 111/51 L 116/55 L Pulse Oximetry 99 98 100 10/28/19 06:00 10/28/19 07:00 10/28/19 08:00 Temperature 96.9 F L Pulse Rate 80 80 81 Respiratory Rate 16 16 20 Blood Pressure 108/54 L 122/55 L 110/55 L Pulse Oximetry 99 100 10/28/19 09:00 Temperature Pulse Rate 89 Respiratory Rate 22 Blood Pressure 121/65 Pulse Oximetry 99 Fraction of Inspired Oxygen 30 Oxygen Delivery Method Mechanical Ventilation Oxygen Flow Rate 100 Narrative Exam Narrative: General: Elderly female lying in bed and in no acute distress, intubated and sedated. Follows commands as noted below. HEENT: Normocephalic, atraumatic. External ears without defect. Pupils equal, round, and reactive to light. Anicteric sclerae and moist conjunctivae. ET and OG tube in place. Neck: Supple with full range of motion. No jugular venous distension. No lymphadenopathy or thyromegaly. Cardiovascular: Regular rate and rhythm without murmurs, rubs, or gallops appreciated. Port-A-Cath in left chest without surrounding erythema. Pulmonary: Coarse lung sounds bilaterally but slightly improved today. No wheeze or crackles. Abdomen: Soft, bowel sounds present, nondistended. No hepatosplenomegaly or masses appreciated. Extremities: No clubbing, cyanosis. Upper extremity nonpitting edema is present. Skin: Normal temperature, turgor, and texture; no ulcers or subcutaneous nodules appreciated. Neurological: Intubated and sedated. When sedation is lightened patient follows commands and seems appropriate. This morning she seemed more alert than yesterday. Objective Labs Result Diagrams: 10/28/19 05:00 10/28/19 05:00 Labs: Laboratory Results - last 24 hr 10/26/19 10/27/19 10/28/19 08:10 04:45 05:00 WBC 10.7 RBC 2.70 L Hgb 8.0 L Hct 23.7 L MCV 87.5 MCH 29.5 MCHC 33.7 RDW 16.3 H Plt Count 135 L Neut % (Auto) 89.5 H Lymph % (Auto) 5.5 L [place] % (Auto) 4.1 Eos % (Auto) 0.8 L Baso % (Auto) 0.1 Neut # (Auto) 9600 H Lymph # (Auto) 600 L [place] # (Auto) 400 Eos # (Auto) 100 Baso # (Auto) 0 PT INR Sodium Potassium Chloride Carbon Dioxide BUN Creatinine Estimated GFR BUN/Creatinine Ratio Glucose Calcium Phosphorus Magnesium Total Bilirubin Conjugated Bilirubin Unconjugated Bilirubin AST ALT Alkaline Phosphatase Total Protein Albumin Globulin Albumin/Globulin Ratio Procalcitonin A. baumannii (PCR) Not detected Dora albicans (PCR) Not detected C. glabrata (PCR) Not detected C. krusei (PCR) Not detected C. parapsilosis (PCR) Not detected C. tropicalis (PCR) Not detected Enterobacteriac sp PCR Not detected E. cloacae complex PCR Not detected Enterococcus sp PCR Not detected E. coli (PCR) Not detected H. influenzae (PCR) Not detected Klebsiella oxytoca PCR Not detected Klebsiella pneumoniae Not detected List. monocytogenes PCR Not detected N. meningitidis (PCR) Not detected Proteus species (PCR) Not detected Serratia marcescens PCR Not detected Staphylococcus sp PCR Detected H Staph aureus (PCR) Detected H mecA-Methicil Res Gene Detected H Streptococcus sp PCR Not detected Group A Strep (PCR) Not detected Strep agalactiae (PCR) Not detected Strep pneumoniae (PCR) Not detected P. aeruginosa (PCR) Not detected Herminio/B-Vanco Res Genes Not detected KPC-Carbap Res Gene PCR Not detected Crossmatch See Detail 10/28/19 10/28/19 10/28/19 05:00 05:00 05:00 WBC RBC Hgb Hct MCV MCH MCHC RDW Plt Count Neut % (Auto) Lymph % (Auto) Cleveland % (Auto) Eos % (Auto) Baso % (Auto) Neut # (Auto) Lymph # (Auto) [place] # (Auto) Eos # (Auto) Baso # (Auto) PT 21.2 H D INR 1.8 H Sodium 133 L Potassium 3.9 Chloride 109 H Carbon Dioxide 18 L BUN 23 H Creatinine 0.90 Estimated GFR > 60.0 BUN/Creatinine Ratio 25.6 H Glucose 142 H Calcium 7.6 L Phosphorus 3.5 Magnesium 2.0 Total Bilirubin 0.6 Conjugated Bilirubin 0.0 Unconjugated Bilirubin 0.3 AST 26 ALT 11 Alkaline Phosphatase 106 Total Protein 5.1 L Albumin 2.1 L Globulin 3.0 Albumin/Globulin Ratio 0.7 L Procalcitonin 0.98 H A. baumannii (PCR) Dora albicans (PCR) C. glabrata (PCR) C. krusei (PCR) C. parapsilosis (PCR) C. tropicalis (PCR) Enterobacteriac sp PCR E. cloacae complex PCR Enterococcus sp PCR E. coli (PCR) H. influenzae (PCR) Klebsiella oxytoca PCR Klebsiella pneumoniae List. monocytogenes PCR N. meningitidis (PCR) Proteus species (PCR) Serratia marcescens PCR Staphylococcus sp PCR Staph aureus (PCR) mecA-Methicil Res Gene Streptococcus sp PCR Group A Strep (PCR) Strep agalactiae (PCR) Strep pneumoniae (PCR) P. aeruginosa (PCR) Herminio/B-Vanco Res Genes KPC-Carbap Res Gene PCR Crossmatch Assessment & Plan Assessment & Plan narrative: Lorraine Parra is an 78-year-old woman with a past medical history significant for hypertension, hyperlipidemia, hypothyroidism and a longstanding history of multiple myeloma who was directly admitted from Dr. Rousseau's office for worsening cough thought to have probable pneumonia and mildly altered mental status, she was admitted for hypoxemic respiratory failure. She was intubated in the emergency room, and after fluid resuscitation still had low blood pressure as so she was begun on Levophed. She remains critically ill at this time from primarily MRSA bacteremia. She is improved today however and plan is for extubation. 1. Acute septic shock, present on admission. Resolved. - source includes MRSA bacteremia and MRSA / pseudomonal / H. Flu / parainfluenza pneumonia. -Patient met sepsis criteria with end-organ dysfunction acute hypoxemic respiratory failure and infectious source pneumonia and possible port site. -Early goal-directed therapy met including: IV fluid resuscitation and broad-spectrum antibiotics. -Patient received norepinephrine as she no longer was fluid responsive. She is off of norepinephrine. -Surgery (Dr. Sood) consulted for port removal, appreciate assistance. Port was removed on 10/26/2019 at bedside, with doris pus noted. Catheter and purulence was sent for culture. 2. Acute hypoxemic respiratory failure, present on admission. Active. -Patient presented in acute respiratory distress with hypoxemia and tachypnea per EMS and ED physician on CPAP which was ineffective and she was subsequently intubated. -Continue current ventilator settings and perform ABG as necessary to adjust ventilator settings. -Plan to perform daily sedation vacation and pressure support/spontaneous breathing trial to wean off ventilator. Plan is for extubation today. 3. Acute parainfluenza with superimposed MRSA /pseudomonal/H flu pneumonia and MRSA bacteremia, present on admission. Active. -Chest x-ray did not demonstrate any acute cardiopulmonary process. -CTA chest demonstrated bibasilar pneumonia L>R. -WBC 8.8 with 12% bands and procalcitonin 3.68 on admission. WBC stable today at 10.8 and procalcitonin trending down now. Continue to monitor WBC and procalcitonin daily. -Ordered complete pneumonia workup including: Respiratory viral PCR positive for parainfluenza 1. Strep pneumoniae and Legionella urine antigens, pending. Sputum culture with MRSA and markham-sensitive pseudomonas and H flu. -Received cefepime 2 g IV x1 and vancomycin with dosing per pharmacist in ED. Continue vancomycin with dosing per pharmacist and has been changed to cefepime which will cover pseudomonas and H. flu. 4. Possible UTI, present on admission. Active. -Urinalysis appears possibly infected with urine culture pending. -Urine culture with lactobacillus and yeast. Patient remains appropriately covered on cefepime. 5. 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 Active. -Etiology of INR elevation is unclear but likely due to recent antibiotic administration with ciprofloxacin. -Initial hemoglobin 8.7. Patient is hemodynamically stable with no overt bleeding other than from knows where NG tube insertion was attempted. -Initial INR 12.3. Patient previously had elevated INR of 7.7 on 10/21 and was instructed by ED physician to discontinue warfarin until INR was within therapeutic range. Received vitamin K 10 mg IV x 1 in ED. Continue to monitor INR and CBC daily. -CT showed possible psoas hematoma however not significant in size, if continued decline in Hg consider repeat imaging. -Will discuss further warfarin given acute blood loss anemia once patient extubated with patient and family. 6. Multiple myeloma, present on admission. Stable. -Patient is followed by Dr. Rousseau of oncology. -Disease progression has been indolent for years but more recently has been progressive. -appreciate recommendations by Dr. Rousseau of Oncology. Once extubated will discuss future options with patient and potential hospice. -Continue acyclovir 800 mg daily for Herpes Zoster prophylaxis and appears she may have had a recent flare. -pain control with fentanyl but patient reports pain. She was started on fentanyl patch which she will likely need to continue for pain control from her myeloma. 7. Chronic kidney disease stage III, present on admission. Stable. -Patient is status post right nephrectomy for renal cell carcinoma. -Initial creatinine 1.6. Baseline creatinine 1.2-1.6. However Cr now improved to 0.9 -Avoid nephrotoxic agents and optimize renal perfusion. Patient received IV contrast for CT chest, abdomen and pelvis as above. -Continue to monitor renal function daily. 8. Hypertension, chronic, present on admission. Stable. -Continue propranolol 160 mg daily once off of Levophed and blood pressures are improved. 9. Hypothyroidism, chronic, present on admission. Stable. -Continue levothyroxine 150 mcg daily. 10. Peripheral neuropathy, present on admission. Stable. -Continue gabapentin 300 mg three times daily. Patient is also on tizanidine 2 mg every 6 hours as needed as an outpatient. 11. Depression, chronic, present on admission. Stable. -Continue sertraline 100 mg daily. 12. GERD, chronic, present on admission. Stable. -Continue Protonix 40 mg IV daily. 13. History of renal cell carcinoma. -She had right nephrectomy 09/2008 for renal cell carcinoma, high grade, papillary, with chronic renal insufficiency. 14. acute blood loss anemia in setting of chronic anemia - patient with Hg of 6.9 after surgical procedure. She was transfused for a Hg of 7.1 yesterday. Responded appropriately today to 8.0. There was a possible psoas hematoma noted on previous imaging. - continue to follow h/h. - consider CT imaging as noted above 15. Supratherapeutic INR, resolved - likely due to septic shock and hypoperfusion. She takes coumadin for previous PE but her last dose was many days ago now. She was given 2U of FFP prior to port removal yesterday. - continute to monitor INR daily - improved to 1.8 today. I spent 30 minutes providing critical care management this patient. This excludes time spent in performing separately billed procedures. Disposition: Patient status guarded. Remains ICU status. Quality VTE Deep Vein Thrombosis/Pulmonary Embolism Present on Admission: No
[2019-10-28 10:50] LABS: Fractionated Inspired Oxygen 30; HCO3 ABG 16 mmol/L (22-26); Oxygen Saturation ABG 96 % (95-100); PCO2 ABG 27.6 mmHg (35-45); PO2 ABG 86 mmHg (80-100); TCO2 ABG 17 mmol/L (21-31); pH ABG 7.37 (7.35-7.45)
--- NOTE | 2019-10-28 11:56 | CM.DPC ---
DCP Cont: Per MD, hopeful that pt can be successfully extubated today and then likely discussion with pt and her Dtr/DPOA confirming DNR/DNI and plan of likely d/c back to [facility] on [facility] vs rehab. SW called [facility] intake and left a msg requesting review for possible Hospice at SNF at d/c and faxed clinicals to review. SW called Rufina, admissions at [facility] for the weekend, and confirmed they continue to follow and they will accept pt back whether for SNF rehab or under her Medicaid with [facility]. Plan: SW to follow closely to determine if pt can be successfully extubated today towards confirming d/c plan of back to [facility] SNF for rehab vs more likely [facility]/Hospice. NIMA Lui
[2019-10-28] MEDS: HYDROMORPHONE 2 MG INJ 1 MG IV ×3 (12:09→23:49)
--- NOTE | 2019-10-28 13:46 | ST.IPCSEOM ---
Visit Care Team Role Provider Type Rodolfo Sood MD Other Providers Physician Specialty: General Surgery Address: [address] [place] [address], [address], [place], [address] Email: [email or web address] DO Emergency Provider Physician Specialty: Emergency Medicine Address: [address] [place] [address], [id number] Email: [email or web address] Provider Physician Attending Provider Specialty: Internal Medicine Address: [address] [place] [address], [id number] Email: [email or web address] Diagnoses Acute respiratory failure with hypoxia (10/23/19) Past Medical History (Last Reviewed 10/26/19 @ 13:25 by Rodolfo Sood MD) Acute urinary retention (Acute Medical) Present on admission. Patient has a Lehman. Reassess in 24 hours. ATN (acute tubular necrosis) (Acute Medical) Present on admission. Monitor renal function daily. Depression (Acute Medical) History of UTI (Acute Medical) Hypertension (Acute Medical) Inpatient management required (Acute Medical) Social history reviewed by me. Patient's diabetic status needs to be addressed. She is on a renal diabetic diet, has had mildly elevated spot glucoses, but I am unable to find other documentation of this status. Patient is a direct admit from [facility] inpatient status. FEN: Renal diet, BMP in the a.m., activity as tolerated Code status: Full code DVT prophylaxis: Currently on a heparin drip Disposition: Likely [facility] rehab Multiple myeloma (Chronic Medical) Multiple myeloma previously treated with Revlimid and multiple courses of radiation. Multiple myeloma (Acute Medical) Nausea (Acute Medical) Neuropathy (Acute Medical) Pulmonary embolus (Acute Medical) Renal cell carcinoma (Acute Medical) UTI (urinary tract infection) due to Enterococcus (Acute Medical) Present on admission. Patient is on day 6 of a 7-day course of vancomycin. She will receive a dose of vancomycin 1260 mg IV tonight. Speech-Language Pathology Swallow Evaluation PERMIT REVIEW ASSISTANT Clinical Swallow Evaluation Start: 10/28/19 13:28 Freq: Status: Active Protocol: Document 10/28/19 13:29 TLC (Rec: 10/28/19 13:46 TLC [id number]) Clinical Swallow Evaluation Session Time Visit Start Time 12:45 Visit Stop Time 13:05 Total Visit Minutes [address] Blevins Reason for Referral NPO S/p extubation Setting Assessment Location Acute Care Visit Type Note Type Initial Evaluation Next Note Type Next Note Type Treatment Note Patient Information Identification Type Name History Pt presented to the ED via EMS from [facility] for acute respiratory distress. She was found to be in septic shock from multiple sources. She has a polymicrobial pneumonia, including MRSA, Pseudomonas, H flu, and parainfluenza. She also has MRSA bacteremia. Patient was intubated on 10/23 and extubated this AM. Subjective Observations Patient is awake, alert and oriented asking to drink water . She denies any throat or swallowing pain. Voice is harsh. Her daughter is present in the room. Due to hip fracture, patient is bed bound . Evaluation Liquids Trialed Ice Chips,Thin Solids Trialed Puree Administration Type Dependent Feeding Oral Impairment WFL Oral Phase Comments Sparse natural dentition. Oral mucosa pink and slightly dry. Oral cavity clean and free of debris. Patient able to participate in oral mech eval and structures found to be within functional limits for speech and swallowing. Dependent for feeding due to upper extremity weakness. Bolus acceptance from cup and small straw within functional limits. No oral residue observed with puree trials. Advanced textures not trialed due to patient fatigue. No significant oral phase impairments observed. Pharyngeal Phase Comments Patient has history of esophageal dysphagia due to stricture as well as effects of radiation at thyroid level due to cancer. She had an MBS in 2018 which revealed flash penetration, no aspiration. Functional oral and pharyngeal phase of swallowing. Patient able to swallow on command and hyolaryngeal elevation present on palpation . She has cough due to current illnesses. She consumed 10+ cup and straw sips of water with occasional coughing not felt to be directly related to swallow. Patient and family education provided regarding recommendations and safe swallow strategies - sitting as far upright as possible, single sips only, stringent oral care to minimize aspiration pneumonia risk. Findings Impressions Functional oral phase of swallowing. Unable to fully assess pharyngeal phase of swallowing at bedside; however , patient appears to be consuming puree textures, thin liquids without overt signs of aspiration. Patient is dependent for feeding and fatigued; therefore, recommend puree textures at this time, advancing diet when patient regains strength. Recommend nursing continue to monitor patient's lung sounds. Her dependence for feeding, dependence for oral care and bed bound status are negative prognostic indicators; however , family support and compliance with recommendations are positive prognostic indicators. It is unknown whether or not patient would be able to participate in MBS given hip fracture; however, this should be considered in the future if concerns for aspiration arise. Diet Recommendations Liquids Order Thin Diet Order Dysphagia Blenderized Medication Recommendations As Tolerated Additional Dietary Needs Single Sips,1:1 Assistance, Reminders to Use Strategies Aspiration Precautions Recommended Precautions Upright at 90 Degrees,Frequent Rest Periods Treatment Plan Placement Recommendations after Long-Term Facility Discharge Appropriate for Therapy Yes Therapy Recommendations Ongoing dysphagia management including patient/family education, assessment and advancing diet when appropriate. Dysphagia Goals Given min verbal cues, Lorraine will implement strategies ( small sips, single sips, slow rate) during PO intake in order to improve swallow safety and decrease aspiration risk.
[2019-10-28] MEDS: OXYCODONE IR 10 MG TABLET 20 MG PO ×2 (14:08→19:43)
--- NOTE | 2019-10-28 18:12 | PC.NURSE ---
Day Shift Note Pt sedated to RASS of -2 on 30 mcg/kg/min of propofol this AM. Sedation vacation done at 0840 and CPAP trial begun at 0915 by RT. Pt able to follow directions, tracking with eyes and squeezing hands on command. Did well on trial with RR in the 20s, occasional increases to the 30s due to anxiety. SpO2 upper 90s. ABG obtained and order received from Dr. Blevins to extubate. Extubated by RT at 1014 to 3L NC, pt exhibiting strong cough with SpO2 95-97%. OG tube removed with ET tube. Restraint removed at this time. Daughter at bedside after extubation. Pt oriented to self and place, able to make needs known and able to follow commands. ST in the low 100s, BP stable, RR in the 22-24 bpm range. Speech therapy eval completed and pt now taking in water with assist without issue. Weak to all extremities, able to move all extremities but unable to aircraft time clerk or assist with turns. Lehman catheter in place draining clear yellow urine. Reporting pain to back 30 out of 10, fentanyl IV and Dilaudid IV given but with no improvement reported by pt on assessment - PO oxycodone administered per home regimen, rating pain 7/10. Wet to dry dressing change completed to left chest at 0900- tolerated well, wound bed red/pink with scant serosanguinous drainage.
--- NOTE | 2019-10-28 18:38 | DI.ECHO.S_ITS ---
[facility] +---------+ [facility] +---------+ : : [address] : : : : [id number] : : : : Phone: [phone]+ Echocardiogram Report + + :Name: ABRAHAM TEMPLE Study Date: 10/29/2019 Height: 64 in : :[facility] Weight: 212 lb: : Gender: Female BSA: 2.0 m2 : :: 1940 Age: 79 yrs BP: 98/48 mmHg: :Reason For Study: BACTEREMIA : :Ordering Physician: Damian : :Hospitalist Performed By: Sina Riddle : :Referring: JOSE CRUZ ERICKSON : + + Interpretation Summary Left ventricular systolic function is normal without focal wall motion abnormalities with the ejection fraction grossly estimated to be 65-70% and appears more dynamic compared to the previous study. There is mild concentric left ventricular hypertrophy. Diastolic parameters suggest a relaxation abnormality of the left ventricle, consistent with probable normal filling pressures. The right ventricle is mildly dilated and systolic function is likely mildly reduced but likely unchanged compared to the previous study. Pulmonary artery pressures cannot be estimated because of the lack of a measurable TR jet velocity but the IVC suggests a CVP of around 3 mmHg. The atria are not well visualized but the right atrium is likely mildly dilated. Agitated saline contrast injection via the left arm was performed and imaged from the left parasternal 3-chamber view because of poor visualization from the 4-chamber view. 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 The absence of any obvious opacification of the left atrium would suggest the absence of any significant interatrial shunt although sensitivity is reduced because of the marginal image quality. There is no obvious significant valvular heart disease. There is a moderate left-sided pleural effusion that is new compared to the previous study. The patient was in sinus tachycardia with heart rates between 104-110 bpm during the exam which is faster compared to the previous study. Procedure: A two-dimensional transthoracic echocardiogram with color flow and Doppler was performed. The study quality was technically adequate. Comparison is made with the echocardiogram of 07/14/16. The patient was in sinus tachycardia with heart rates between 104-110 bpm during the exam. This is faster compared to the previous study. Left Ventricle: The left ventricle is normal in size. There is mild concentric left ventricular hypertrophy. Left ventricular systolic function is normal without focal wall motion abnormalities. The ejection fraction is estimated to be 65-70%. This is more dynamic compared to the previous study. Diastolic parameters suggest a relaxation abnormality of the left ventricle, consistent with probable normal filling pressures. Right Ventricle: The right ventricle is mildly dilated. Right ventricular systolic function is mildly reduced. This is likely unchanged compared to the previous study. Atria: The left atrium is not well visualized. The right atrium is mildly dilated. There is no Doppler evidence for an atrial septal defect. Agitated saline contrast injection via the left arm was performed and imaged from the left parasternal 3 chamber view because of poor visualization from the 4 chamber view. 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 The absence of any obvious opacification of the left atrium which suggest the absence of any significant intra-atrial shunt although sensitivities reduced because of the marginal image quality. Mitral Valve: There is mild mitral annular calcification. The mitral valve is grossly normal. There is trace mitral regurgitation. Aortic Valve: The aortic valve is grossly normal. The aortic valve opens well. No aortic regurgitation is present. Tricuspid Valve: The tricuspid valve is not well visualized, but is grossly normal. There is trace tricuspid regurgitation. Pulmonary artery pressures cannot be estimated because of the lack of a measurable TR jet velocity but the IVC suggests a CVP of around 3 mmHg. Pulmonic Valve: The pulmonic valve is not well visualized. There is no significant valvular heart disease. Great Vessels: The aortic root is normal size. The dimensions of the ascending aorta are normal. The pulmonary is not well visualized. The IVC is of normal diameter and collapses greater than 50% with a sniff. This suggests a low right atrial pressure of 3 mm Hg. Pericardium/ Pleura There is no pericardial effusion. There is a moderate left-sided pleural effusion. This is new compared to the previous study. MMode/2D Measurements & Calculations LVIDd: 4.1 cm LVOT diam: 1.8 cm LVIDs: 2.4 cm Ao root diam: 3.3 cm FS: 40.7 % asc Aorta Diam: 3.0 cm EPSS: 0.43 cm IVSd: 1.3 cm LVPWd: 1.3 cm LV beal. diameter/BSA (cm/m^2): 2.1 LV sys. diameter/BSA (cm/m^2): 1.2 RA long axis: 4.9 cm RVD1 (basal): 3.9 cm RA area: 18.6 cm2 TAPSE: 1.5 cm RA vol: 60.2 ml RA : 30.0 ml/m2 IVC diam: 2.0 cm Doppler Measurements & Calculations LVOT Max Michele: 113.6 cm/sec MV E max michele: 89.8 cm/sec LV V1 max P.2 mmHg MV A max michele: 124.3 cm/sec LV V1 VTI: 16.3 cm MV E/A: 0.72 MV dec time: 0.18 sec SV(LVOT): 39.3 ml Reading Physician:GABRIELLE
[2019-10-28] MEDS: INSULIN GLARGINE 100 UNIT/ML 3ML PEN 20 UNIT SUBCUT (19:56)
--- NOTE | 2019-10-28 22:46 | PC.NURSE ---
See PAPER CHART for 10/28 [id number] Nursing assessment/interventions/note.
[2019-10-29] VITALS (13 sets, daily range): BP systolic 93–140; BP diastolic 38–62; PULSE 102–116; RESP 14–28; TEMP 36.3–37.3; O2SAT 96–100
--- NOTE | 2019-10-29 | DI.RAD.S_ITS ---
PROCEDURE: XR TOE RT MIN 2V INDICATIONS: swelling right great toe TECHNIQUE: 3 views of the right toe(s) acquired. COMPARISON: None. FINDINGS: Bones: No fractures or dislocations. No suspicious bony lesions. Toe alignment abnormalities are seen. Age-appropriate bony degenerative changes are seen. Soft tissues: Swelling is seen involving the great toe. IMPRESSION: Soft tissue swelling is seen involving the great toe, yet without an acute bony abnormality identified. If there is strong suspicion for developing osteomyelitis, please consider a dedicated MRI without and with contrast for further evaluation (assuming that there is no contraindication to MRI). Toe alignment abnormalities are seen. Dictated by: Roney Tapia M.D. on 10/29/2019 at 11:43 Approved by: Roney Tapia M.D. on 10/29/2019 at 11:44
--- NOTE | 2019-10-29 | DI.RAD.S_ITS ---
PROCEDURE: XR PELVIS 1-2V INDICATIONS: right groin pain hx fracture, r/o acute new fx TECHNIQUE: 1 view(s) of the pelvis acquired. COMPARISON: [facility], CR, XR TOE RT MIN 2V, 10/29/2019, 11:52. [facility], CT, CT ABDOMEN PELVIS W CON, 10/23/2019, 12:42. FINDINGS: Bones: Right bony abnormalities are seen, including a partially healing fracture involving the right pubis and the right superior and inferior pubic rami. No definite acute fracture can be seen. This patient has numerous lytic and blastic lesions, which are much better seen on the recent prior CT. Soft tissues: Visualized bowel gas pattern is normal. No suspicious soft tissue calcifications. IMPRESSION: No definite acute fractures are seen. Pathologic fractures are seen and there are lytic and blastic lesions present, which are much better seen on the prior CT examination. Dictated by: Roney Tapia M.D. on 10/29/2019 at 11:41 Approved by: Roney Tapia M.D. on 10/29/2019 at 11:43
[2019-10-29] MEDS: OXYCODONE IR 10 MG TABLET 20 MG PO ×3 (01:29→21:23)
[2019-10-29] MEDS: HYDROMORPHONE 2 MG INJ 1 MG IV ×3 (02:23→23:22)
[2019-10-29 05:35] LABS: INR 1.6 (0.9-1.3); Prothrombin Time 18.1 SECONDS (10.1-12.7)
[2019-10-29] MEDS: VANCOMYCIN 1,250 MG in SODIUM CHLORIDE 0.9% 250 ML IV (06:18)
[2019-10-29 07:52] LABS: Add Manual Diff / Slide Review YES; Hematocrit 23.5 % (36-46); Hemoglobin 7.7 g/dL (12.0-16.0); Mean Corpuscular HGB Conc 32.7 % (30-36); Mean Corpuscular Hemoglobin 29.2 PG (26-34); Mean Corpuscular Volume 89.4 fL (80-100); Platelet Count 171 X10^3/uL (150-400); Red Blood Cell Count 2.63 X10^6/uL (4.0-5.2); Red Cell Distribution Width 16.6 % (11.6-14.8); White Blood Cell Count 12.5 X10^3/uL (4.5-11.0)
[2019-10-29 07:56] LABS: Alanine Aminotransferase 12 IU/L (<35); Albumin 2.1 g/dL (3.5-5.0); Albumin Globulin Ratio 0.7 (1.0-2.8); Alkaline Phosphatase 100 U/L (38-126); Aspartate Aminotransferase 49 IU/L (14-36); Bilirubin Unconjugated 0.4 mg/dL (0.0-1.1); Blood Urea Nitrogen 20 mg/dL (7-17); Calcium 7.6 mg/dL (8.4-10.2); Carbon Dioxide 19 mmol/L (22-32); Chloride 109 mmol/L (98-107); Estimated Glomerular Filt Rate > 60.0 mL/min (>60); Globulin 3.1 g/dL (1.7-4.1); Glucose 89 mg/dL (80-110); HEMOLYSIS < 15 (0-50); Magnesium 1.9 mg/dL (1.6-2.3); Phosphorous 3.4 mg/dL (2.8-4.1); Potassium 3.7 mmol/L (3.4-5.1); Sodium 134 mmol/L (137-145); Total Protein 5.2 g/dL (6.3-8.2)
[2019-10-29 08:01] LABS: Neutrophils Absolute Manual 11250 /uL (3000-5900); Total Cells Counted 100
[2019-10-29 08:02] LABS: Anisocytosis 2+
[2019-10-29] MEDS: ALBUTEROL/IPRATROPIUM 3 ML AMPUL INH ×5 (08:17→23:05)
[2019-10-29] MEDS: PANTOPRAZOLE 40 MG VIAL IV (09:08)
[2019-10-29] MEDS: GABAPENTIN 300 MG CAPSULE PO ×3 (09:08→21:00)
[2019-10-29] MEDS: LEVOTHYROXINE 150 MCG TABLET PO (09:08)
[2019-10-29] MEDS: SERTRALINE 50 MG TABLET 100 MG PO (09:09)
--- NOTE | 2019-10-29 10:57 | PM.CN ---
History of Present Illness Consult details Date Patient Seen: 10/29/19 Time Patient Seen: 10:57 Chief complaint: Respiratory distress Reason for consult: Weight-bearing guidelines , also right great toe swelling, gout? Requesting provider: David Blevins Narrative: Lorraine is an 79-year-old female with an extensive history of multiple myeloma with extensive metastatic lesions throughout her spine pelvis and extremities. She has had many courses of radiation and has had progression of her disease despite this. Per reports there's been some resistance to more extensive IV chemotherapy courses. Her current oncologist is Dr. Rousseau. Most recent admission was for septic shock related to MRSA bacteremia. She was just extubated recently. Additionally she has a history of a pulmonary embolism on Coumadin and she also had her Port-A-Cath removed this admission as a presumed source of her sepsis. Regarding her so extensive metastatic lesions she has a history of a chronic left iliac wing fracture in June 2019 and a right superior pubic ramus fracture discovered after increasing right groin pain on 09/09/2019. She also head is lytic femoral head lesions approach from the on the right side. She tells me that she has been in and out of rehab centers for months and has most recently been staying in SNF. She states she has not been walking much over the last month at least and used a walker prior. She reports right groin pain. She denies any falls or new injuries. She was admitted briefly in mid August when the superior pubic rami fracture on the right was diagnosed. She has a history of bilateral total knees. She has a record of an evaluation at [facility] with a recommendation for additional multiple myeloma treatment as well as consideration for Zometa regarding her high risk of fracture however it is unclear from the records and from the patient today if she has gotten any of this treatment in the past. Regarding her right great toe she does state that she has a history of gout in this area previously. She is not sure how long the toe has bothered her but it is tender at the IP joint. She also reports a history consistent with the in bearing ulceration that was bleeding and getting bandaged a few weeks ago. She also has a remote history of renal cell carcinoma status post radical nephrectomy many years ago. 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 Meds Home Medications and Allergies Home Medications Medication Instructions Recorded Confirmed Type propranolol 160 mg PO DAILY #0 01/14/18 10/23/19 History sertraline 100 mg PO DAILY 03/30/18 10/23/19 History acetaminophen 650 mg PO Q8H 01/25/19 10/23/19 History cyanocobalamin (vitamin B-12) 1,000 mcg PO DAILY 01/25/19 10/23/19 History dexamethasone 20 mg PO QWEEK 06/29/19 10/23/19 History diclofenac sodium 1 g TOPICAL BID 06/29/19 10/23/19 History levothyroxine [Synthroid] 150 mcg PO DAILY 06/29/19 10/23/19 History ondansetron 4 mg PO Q8H PRN 06/29/19 10/23/19 History tizanidine 2 mg PO Q6H PRN 06/29/19 10/23/19 History warfarin See Rx Instructions .ROUTE .COMPLEX 06/29/19 10/23/19 History guaifenesin [Mucus Relief ER] 600 mg PO Q12HR PRN #15 tab 09/10/19 10/23/19 Rx Lactobacillus acidophilus 10 mg PO DAILY 10/21/19 10/23/19 History [Acidophilus] acyclovir 800 mg PO DAILYX7 10/21/19 10/23/19 History gabapentin 300 mg PO TID 10/21/19 10/23/19 History guaifenesin [Tussin Expectorant] 200 mg PO Q6HR PRN 10/21/19 10/23/19 History ipratropium bromide 1 spray INTRANASAL BID 10/21/19 10/23/19 History melatonin 6 mg PO BEDTIME 10/21/19 10/23/19 History omeprazole 20 mg PO DAILY 10/21/19 10/23/19 History oxycodone-acetaminophen [Percocet] 2 tab PO Q6H PRN 10/21/19 10/23/19 History polyvinyl alcohol 1 drp OPHTHALMIC (EYE) Q4HR PRN 10/21/19 10/23/19 History warfarin See Rx Instructions .ROUTE .COMPLEX 10/21/19 10/23/19 History multivitamin with minerals 1 tab PO DAILY 10/23/19 10/23/19 History oxycodone 20 mg PO Q6H PRN 10/23/19 10/23/19 History Allergies Allergy/AdvReac Type Severity Reaction Status Date / Time morphine Allergy Severe STROKE Verified 06/29/19 13:07 LIKE SYMPTOMS levofloxacin Allergy Intermediate HIVES Verified 06/29/19 13:07 adhesive [ADHESIVE] Allergy Mild BLISTERS Verified 06/29/19 13:07 celecoxib Allergy Mild RASH, Verified 06/29/19 13:07 SMALL BLISTERS, NAUSEA Penicillins Allergy Mild RASH Verified 06/29/19 13:07 phenazopyridine Allergy Mild VOMITING Verified 06/29/19 13:07 [From PYRIDIUM] Sulfa (Sulfonamide Allergy Mild BLISTERS Verified 06/29/19 13:07 Antibiotics) lactose [LACTOSE] Allergy Unknown Verified 06/29/19 13:07 Review of Systems Review of Systems Narrative: Limited review of systems due to patient condition. Patient was recently extubated. She is alert and able to talk briefly in tense is but and has substantial coughing. She complains of musculoskeletal groin pain on the right side. She also complains of pain at her right great toe. Otherwise limited Exam Vital Signs (past 8 hours): - 10/29/19 04:35 10/29/19 07:56 10/29/19 08:17 Temperature 98.0 F 97.9 F Pulse Rate 116 H 104 H 102 H Respiratory Rate 28 H 23 24 Blood Pressure 110/57 L 93/41 L Pulse Oximetry 96 98 98 10/29/19 08:57 Temperature Pulse Rate 105 H Respiratory Rate 20 Blood Pressure 98/48 L Pulse Oximetry Fraction of Inspired Oxygen 30 Oxygen Delivery Method Nasal Cannula Oxygen Flow Rate 3 Narrative Exam Narrative: General examination: Alert patient lying in bed in the ICU. Intermittent coughing and clearing of her throat. Speaks slowly but in complete sentences. HEENT exam normocephalic atraumatic Respiratory exam on nasal cannula. Intermittent coughing Musculoskeletal examination: Very limited range of motion in the arms and legs upper extremities secondary to effort. Patient able to wiggle fingers and no redness no erythema or swelling. Compartments soft. Lower extremities limited range of motion secondary to pain. Patient does dorsiflex and plantar flex. She there is swelling at the great toe IP joint with mild erythema. Patient is able to demonstrate flexion and extension of the 1st MTP joint. There is a hammered great toe IP joint with a end a callus with ulceration without any drainage or surrounding erythema. No signs of infection at the area of this ulceration. Area over the IP joint is erythematous and swollen no drainage mild tenderness to direct palpation. Calfs are soft. Patient has well-healed total knee arthroplasty midline scars on bilateral knees. Thighs are soft. Patient endorses right groin pain but is unable to demonstrate flexion or extension of her knees today. No pain with logroll. No gross deformities. Brisk capillary refill Const General: cooperative Objective Labs Result Diagrams: 10/29/19 05:00 10/29/19 05:00 Labs: Laboratory Results - last 24 hr 10/29/19 10/29/19 10/29/19 05:00 05:00 05:00 WBC 12.5 H RBC 2.63 L Hgb 7.7 L Hct 23.5 L MCV 89.4 MCH 29.2 MCHC 32.7 RDW 16.6 H Plt Count 171 Neut % (Auto) Not Reportable Lymph % (Auto) Not Reportable Ramsey % (Auto) Not Reportable Eos % (Auto) Not Reportable Baso % (Auto) Not Reportable Lymph # (Auto) Not Reportable Ramsey # (Auto) Not Reportable Baso # (Auto) Not Reportable Total Counted 100 Seg Neutrophils % 87.0 H Band Neutrophils % 3.0 Lymphocytes % (Manual) 2.0 L Atypical Lymphs % 3.0 H Monocytes % (Manual) 5.0 Neutrophils # (Manual) 81105 H RBC Morphology Not Reportable Anisocytosis 2+ H PT 18.1 H INR 1.6 H Sodium 134 L Potassium 3.7 Chloride 109 H Carbon Dioxide 19 L BUN 20 H Creatinine 0.80 Estimated GFR > 60.0 BUN/Creatinine Ratio 25.0 H Glucose 89 Calcium 7.6 L Phosphorus Magnesium Total Bilirubin 1.0 Conjugated Bilirubin 0.0 Unconjugated Bilirubin 0.4 AST 49 H ALT 12 Alkaline Phosphatase 100 Total Protein 5.2 L Albumin 2.1 L Globulin 3.1 Albumin/Globulin Ratio 0.7 L 10/29/19 05:00 WBC RBC Hgb Hct MCV MCH MCHC RDW Plt Count Neut % (Auto) Lymph % (Auto) Ramsey % (Auto) Eos % (Auto) Baso % (Auto) Lymph # (Auto) Ramsey # (Auto) Baso # (Auto) Total Counted Seg Neutrophils % Band Neutrophils % Lymphocytes % (Manual) Atypical Lymphs % Monocytes % (Manual) Neutrophils # (Manual) RBC Morphology Anisocytosis PT INR Sodium Potassium Chloride Carbon Dioxide BUN Creatinine Estimated GFR BUN/Creatinine Ratio Glucose Calcium Phosphorus 3.4 Magnesium 1.9 Total Bilirubin Conjugated Bilirubin Unconjugated Bilirubin AST ALT Alkaline Phosphatase Total Protein Albumin Globulin Albumin/Globulin Ratio Assessment & Plan Assessment & Plan narrative: 1. Multiple myeloma metastatic disease with pathologic fractures chronic and subacute No indication at this time of acute fracture however there has not been any imaging during the current admission. Recommend AP pelvis and lateral right hip to rule out any acute new fractures. If no changes on plain x-ray and paper patient unable to weight bear would consider CT scan. Otherwise weightbear with assistive devices. recommend weightbear to tolerance with assistive devices at all times. The patient does have a high risk for pathologic fracture however pending new imaging no indication of new or unstable fractures at this time. Recommend complete 10 you'd medical care of the patient's multiple myeloma and consideration for bisphosphonate agents, Zometa regarding the patient's risk. With the patient's multiple lesions and progressive disease she will have an ongoing risk for pathologic fracture. 2. Right great toe pain--likely gout. There is no imaging in the system so we'll order x-ray of the patient's right foot. Patient is able to flex and extend her toe. She has limited motion at the hammered joint. Recommend medical treatment for gout. Would not recommend aspiration at this time as patient has known bacteremia and on medical treatment for this as well. The aspiration would be unlikely to yield fluid at the IP joint, and would not mash filter cloth changer at this juncture. 3. Great toe ulceration regarding the patient's right great toe ulceration and eschar this appears to be healing there is no surrounding erythema or drainage does not appear to be infected at this time recommend routine wound care Time Spent With Patient Time with patient: 15-24 minutes
--- NOTE | 2019-10-29 11:43 | P.PN_ITS ---
Subjective Subjective Date Patient Seen: 10/29/19 Time Patient Seen: 11:48 Interval history: Lorraine Parra is an 79-year-old woman with a past medical history significant for hypertension, hyperlipidemia, hypothyroidism, longstanding history of multiple myeloma, renal cell carcinoma status post right nephrectomy 09/2008, and CKD who presented to the ED via EMS from [facility] for acute respiratory distress. She was found to be in septic shock from multiple sources. She has a polymicrobial pneumonia, including MRSA, Pseudomonas, H flu, and parainfluenza. She also has MRSA bacteremia. Interval History: Patient made DNR/DNI after extubation. She is alert this morning. She is complaining of back pain. She denies any chest pain. Does feel somewhat short of breath but not much. She is having difficulty moving today and has no strength. Orthopedics consulted for weight bearing recommendations and possible tap of R 1st toe which they did not feel would mold changer. She was started on steroids for gout flare. She is listed for the regular floor today. Exam Vital Signs (past 8 hours): - 10/29/19 04:35 10/29/19 07:56 10/29/19 08:17 Temperature 98.0 F 97.9 F Pulse Rate 116 H 104 H 102 H Respiratory Rate 28 H 23 24 Blood Pressure 110/57 L 93/41 L Pulse Oximetry 96 98 98 10/29/19 08:57 10/29/19 11:10 Temperature Pulse Rate 105 H 105 H Respiratory Rate 20 20 Blood Pressure 98/48 L Pulse Oximetry 98 Fraction of Inspired Oxygen 30 Oxygen Delivery Method Nasal Cannula Oxygen Flow Rate 3 Narrative Exam Narrative: General: Elderly female lying in bed and in no acute distress. Now extubated and alert. Follows commands. HEENT: Normocephalic, atraumatic. External ears without defect. Pupils equal, round, and reactive to light. Anicteric sclerae and moist conjunctivae. Neck: Supple with full range of motion. No jugular venous distension. No lymphadenopathy or thyromegaly. Chest: normal AP diameter, Port-A-Cath site dressing without tenderness, and dressings c/d/i. Cardiovascular: Regular rate and rhythm without murmurs, rubs, or gallops appreciated. Pulmonary: CTA b/l anteriorly. Good air movement. Much improved. Abdomen: Soft, bowel sounds present, nondistended. No hepatosplenomegaly or masses appreciated. Extremities: No clubbing, cyanosis. Upper extremity nonpitting edema is present. R 1st toe effusion and tenderness with small area of ulceration. Skin: Normal temperature, turgor, and texture; Neurological: Alert and oriented, following commands. able to move distal extremities and rn labor delivery strength is +5/5 however she is unable to lift b/l UE and LE. Objective Labs Result Diagrams: 10/29/19 05:00 10/29/19 05:00 Labs: Laboratory Results - last 24 hr 10/29/19 10/29/19 10/29/19 05:00 05:00 05:00 WBC 12.5 H RBC 2.63 L Hgb 7.7 L Hct 23.5 L MCV 89.4 MCH 29.2 MCHC 32.7 RDW 16.6 H Plt Count 171 Neut % (Auto) Not Reportable Lymph % (Auto) Not Reportable [place] % (Auto) Not Reportable Eos % (Auto) Not Reportable Baso % (Auto) Not Reportable Lymph # (Auto) Not Reportable [place] # (Auto) Not Reportable Baso # (Auto) Not Reportable Total Counted 100 Seg Neutrophils % 87.0 H Band Neutrophils % 3.0 Lymphocytes % (Manual) 2.0 L Atypical Lymphs % 3.0 H Monocytes % (Manual) 5.0 Neutrophils # (Manual) 66160 H RBC Morphology Not Reportable Anisocytosis 2+ H PT 18.1 H INR 1.6 H Sodium 134 L Potassium 3.7 Chloride 109 H Carbon Dioxide 19 L BUN 20 H Creatinine 0.80 Estimated GFR > 60.0 BUN/Creatinine Ratio 25.0 H Glucose 89 Calcium 7.6 L Phosphorus Magnesium Total Bilirubin 1.0 Conjugated Bilirubin 0.0 Unconjugated Bilirubin 0.4 AST 49 H ALT 12 Alkaline Phosphatase 100 Total Protein 5.2 L Albumin 2.1 L Globulin 3.1 Albumin/Globulin Ratio 0.7 L 10/29/19 05:00 WBC RBC Hgb Hct MCV MCH MCHC RDW Plt Count Neut % (Auto) Lymph % (Auto) [place] % (Auto) Eos % (Auto) Baso % (Auto) Lymph # (Auto) [place] # (Auto) Baso # (Auto) Total Counted Seg Neutrophils % Band Neutrophils % Lymphocytes % (Manual) Atypical Lymphs % Monocytes % (Manual) Neutrophils # (Manual) RBC Morphology Anisocytosis PT INR Sodium Potassium Chloride Carbon Dioxide BUN Creatinine Estimated GFR BUN/Creatinine Ratio Glucose Calcium Phosphorus 3.4 Magnesium 1.9 Total Bilirubin Conjugated Bilirubin Unconjugated Bilirubin AST ALT Alkaline Phosphatase Total Protein Albumin Globulin Albumin/Globulin Ratio Assessment & Plan Assessment & Plan narrative: Lorraine Parra is an 78-year-old woman with a past medical history significant for hypertension, hyperlipidemia, hypothyroidism and a longstanding history of multiple myeloma who was directly admitted from Dr. Rosuseau's office for worsening cough thought to have probable pneumonia and mildly altered mental status, she was admitted for hypoxemic respiratory failure. She was intubated in the emergency room, and after fluid resuscitation still had low blood pressure as so she was begun on Levophed. She remains critically ill at this time from primarily MRSA bacteremia. She is improved today however and plan is for extubation. 1. Acute septic shock, present on admission. Resolved. - source includes MRSA bacteremia and MRSA / pseudomonal / H. Flu / parainfluenza pneumonia. -Patient met sepsis criteria with end-organ dysfunction acute hypoxemic respiratory failure and infectious source pneumonia and port site. -Early goal-directed therapy met including: IV fluid resuscitation and broad- spectrum antibiotics. -Patient received norepinephrine as she no longer was fluid responsive. She is off of norepinephrine. -Surgery (Dr. Sood) consulted for port removal, appreciate assistance. Port was removed on 10/26/2019 at bedside, with doris pus noted. Catheter and purulence was sent for culture. - patient continues of cefepime, vancomycin. 2. Acute hypoxemic respiratory failure, present on admission. Improved. -Patient presented in acute respiratory distress with hypoxemia and tachypnea per EMS and ED physician on CPAP which was ineffective and she was subsequently intubated. -Patient was extubated on 10/28/2019. She is doing well off of ventilator today. -continue supplemental O2 for goal of O2 > 90%. 3. Acute parainfluenza with superimposed MRSA /pseudomonal/H flu pneumonia and MRSA bacteremia, present on admission. Active. -Chest x-ray did not demonstrate any acute cardiopulmonary process. -CTA chest demonstrated bibasilar pneumonia L>R. -WBC 8.8 with 12% bands and procalcitonin 3.68 on admission. WBC stable today at 10.8 and procalcitonin trending down now. Continue to monitor WBC and procalcitonin daily. -Ordered complete pneumonia workup including: Respiratory viral PCR positive for parainfluenza 1. Strep pneumoniae and Legionella urine antigens, pending. Sputum culture with MRSA and markham-sensitive pseudomonas and H flu. -Received cefepime 2 g IV x1 and vancomycin with dosing per pharmacist in ED. Continue vancomycin with dosing per pharmacist and has been changed to cefepime which will cover pseudomonas and H. flu. - will check TTE to see if obvious vegetation. Consider treating fully for endocarditis empirically if negative or consider ZIYAD, however invasive procedure in the setting of her advanced malignancy and lytic lesions seems excessive. Blood culture on 10/28 is negative so far. She will need at least two weeks of IV vancomycin after last negative culture, consider further discussion with ID for duration recommendations. 4. Possible UTI, present on admission. Resolved. -Urinalysis appears possibly infected with urine culture pending. -Urine culture with lactobacillus and yeast. Patient remains appropriately covered on cefepime. 5. 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 -Etiology of INR elevation is unclear but likely due to recent antibiotic administration with ciprofloxacin. -Initial hemoglobin 8.7. Patient is hemodynamically stable with no overt bleeding other than from knows where NG tube insertion was attempted. -Initial INR 12.3. Patient previously had elevated INR of 7.7 on 10/21 and was instructed by ED physician to discontinue warfarin until INR was within therapeutic range. Received vitamin K 10 mg IV x 1 in ED. Continue to monitor INR and CBC daily. -CT showed possible psoas hematoma however not significant in size. Consider repeat imaging if Hg continues to further decline. It is 7.7 today from 8.1 yesterday. Currently holding warfarin given decrease in Hg. Her CTA was also negative for PE and it is felt that anticoagulation is more perilous at this time. 6. Multiple myeloma, present on admission. Stable. -Patient is followed by Dr. Rousseau of oncology. -Disease progression has been indolent for years but more recently has been progressive. -appreciate recommendations by Dr. Rousseau of Oncology. Once extubated will discuss future options with patient and potential hospice. -Continue acyclovir 800 mg daily for Herpes Zoster prophylaxis and appears she may have had a recent flare. -pain control with fentanyl but patient reports pain. She was started on fentanyl patch which she will likely need to continue for pain control from her myeloma. -repeat imaging today per orthopedic surgery to assess if new fractures are present given lytic lesions. And appreciate assistance in helping to determine weight bearing status. 7. Chronic kidney disease stage III, present on admission. Stable. -Patient is status post right nephrectomy for renal cell carcinoma. -Initial creatinine 1.6. Baseline creatinine 1.2-1.6. However Cr now improved to 0.8 -Avoid nephrotoxic agents and optimize renal perfusion. Patient received IV contrast for CT chest, abdomen and pelvis on admission. -Continue to monitor renal function daily. 8. Hypertension, chronic, present on admission. Stable. -Continue propranolol 160 mg daily if blood pressures are elevated. 9. Hypothyroidism, chronic, present on admission. Stable. -Continue levothyroxine 150 mcg daily. 10. Peripheral neuropathy, present on admission. Stable. -Continue gabapentin 300 mg three times daily. Patient is also on tizanidine 2 mg every 6 hours as needed as an outpatient. 11. Depression, chronic, present on admission. Stable. -Continue sertraline 100 mg daily. 12. GERD, chronic, present on admission. Stable. -Continue Protonix 40 mg IV daily. 13. History of renal cell carcinoma. -She had right nephrectomy 09/2008 for renal cell carcinoma, high grade, papillary, with chronic renal insufficiency. 14. acute blood loss anemia in setting of chronic anemia - patient with Hg of 6.9 after surgical procedure. She was transfused for a Hg of 7.1 yesterday. Responded appropriately today to 8.0. There was a possible psoas hematoma noted on previous imaging. Hg declined slightly to 7.7. INR is decreased now off coumadin and will continue to hold coumadin until h/h stabilizes. - continue to follow h/h. - consider CT imaging as noted above 15. Supratherapeutic INR, resolved - likely due to septic shock and hypoperfusion. She takes coumadin for previous PE but her last dose was many days ago now. She was given 2U of FFP prior to port removal. - continute to monitor INR. However as noted above patient does not have PE on CTA chest. Once Hg has stabilized will need to reconsider starting anticoagulation. 16. Gout, acute on chronic. - will start prednisone 30 mg daily starting today for gout flare. Dispo: can be listed for regular floor. PT / OT pending pain control and weight bearing recommendations after imaging. Code: DNR/DNI. Quality VTE Deep Vein Thrombosis/Pulmonary Embolism Present on Admission: No
[2019-10-29] MEDS: CEFEPIME 2 GM in SODIUM CHLORIDE 0.9% 100 ML 200 ML IV (13:24)
[2019-10-29] MEDS: fentaNYL 50 MCG/PATCH TOP (14:14)
--- NOTE | 2019-10-29 15:22 | PC.NURSE ---
Day Shift Note Patient transferred to room 209 via bed at 1415. All belongings with pt and Gracie (daughter) notified of transfer. Dressing to left chest changed prior to transfer, no drainage, tolerated well.
[2019-10-29] MEDS: SODIUM CHLORIDE 0.9% FLUSH 10 ML IV (23:22)
[2019-10-30] VITALS (8 sets, daily range): BP systolic 106–124; BP diastolic 43–54; PULSE 100–110; RESP 18–20; TEMP 37.1; O2SAT 95–99
--- NOTE | 2019-10-30 00:12 | PC.NURSE ---
Addendum entered by Mariela Pink R.N. 10/30/19 06:48: Patient slept most of shift in between being repositioned q2h. Does complain of 10/10 pain again this morning; generalized. Medicated with Oxycodone. Original Note: Patient is alert and oriented except to day of week, day of month and town. Breath sounds are diminished and coarse. Frequent loose sounding non productive cough. RR 28 and respirations are shallow. Complains of SOB and is cannot complete full sentences without stopping to take a breath. Oxygen at 2L/min per NC with sat of 100%. HRR but tachy at 116 bpm. On telemetry with last recorded reading being ST with BBB. Denies nausea. BT present and abdomen is soft. Indwelling catheter is patent; may be going on hospice so not removed at this time. Generalized edema. Abrasions mid chest. Bruising around PICC insertion site. Perirectal area reddened. Has dressing to left chest which is CDI. Reddened right great toe with scabbed ulcer on tip which patient states was due to shoes and present upon admission. Complains of generalized pain at 10/10 which decreased to 6/10 after administration of IV Dilaudid. Is needing to be repositioned q2h as unable to turn herself. Wearing bilateral calf SCD's. Fall risk score is high and bed alarm is activated.
[2019-10-30] MEDS: CEFEPIME 2 GM in SODIUM CHLORIDE 0.9% 100 ML 200 ML IV ×2 (00:56→11:30)
[2019-10-30] MEDS: SODIUM CHLORIDE 0.9% FLUSH 10 ML IV ×3 (00:57→12:25)
[2019-10-30] MEDS: SODIUM CHLORIDE 0.9% 250 ML 21 ML IV (01:00)
[2019-10-30] MEDS: ALBUTEROL/IPRATROPIUM 3 ML AMPUL INH ×3 (03:14→11:05)
[2019-10-30] MEDS: VANCOMYCIN TROUGH 1 REQUEST MISC (05:28)
[2019-10-30 06:03] LABS: Magnesium 1.7 mg/dL (1.6-2.3)
[2019-10-30 06:12] LABS: Vancomycin Trough 17.1 ug/mL (10-20)
[2019-10-30] MEDS: LEVOTHYROXINE 150 MCG TABLET PO (06:41)
[2019-10-30] MEDS: VANCOMYCIN 1,250 MG in SODIUM CHLORIDE 0.9% 250 ML IV (06:41)
[2019-10-30] MEDS: OXYCODONE IR 10 MG TABLET 20 MG PO ×2 (06:44→12:26)
[2019-10-30 07:04] LABS: Uric Acid 4.4 mg/dL (2.5-6.2)
[2019-10-30] MEDS: ACETAMINOPHEN 325 MG TABLET 650 MG PO (08:55)
[2019-10-30] MEDS: GABAPENTIN 300 MG CAPSULE PO (08:56)
[2019-10-30] MEDS: SERTRALINE 50 MG TABLET 100 MG PO (08:56)
[2019-10-30] MEDS: PANTOPRAZOLE 40 MG VIAL IV (08:58)
[2019-10-30] MEDS: HYDROMORPHONE 2 MG INJ 1 MG IV (08:59)
--- NOTE | 2019-10-30 10:15 | SLP.IPNOTE ---
Per RN, patient resting and not appropriate for dysphagia therapy this AM. Will follow-up tomorrow.
--- NOTE | 2019-10-30 11:44 | CM.DPC ---
Addendum entered by NIMA Lui 10/30/19 14:57: ADD: SW confirmed with [facility] that Dtr signed consents and they are now aware that pt is on IV-Abx and will coordinate with [facility] and Dtr for when best time for start date and opening pt to services. FESTUS called March at [facility] and updated and she is agreeable with plan to coordinate with Hospice and determine when pt should be [place] and on hospice. FESTUS called pt's Dtr Gracie and updated on above and d/c to [facility] today and provided Medicare Message and Dtr/DPOA gave verbal signature and agreeable with d/c plan. Plan: Patient to d/c to [facility] via BLS transport with [facility] today at 1445 with [facility] to begin service later after coordinating with [facility] and Dtr. BF Addendum entered by NIMA Lui 10/30/19 13:50: ADD: Per , pt medically stable to d/c back to SNF today for comfort via BLS transport. FESTUS called [facility] and confirmed that they can accept today and called [facility] and confirmed they can transport at 1445 today to [facility]. SW called [facility] and waiting to hear from them if Dtr officially signed consents and when they can open the pt to service. FESTUS updated [facility]. BLS form completed and attached POLST and facesheet for [facility] and placed on chart. BF Original Note: DCP Hospice Planning: Per , spoke with pt and Dtr and plan is for pt to d/c back to [facility] with Hospice. FESTUS called [facility] to confirm they received the referral over the weekend and Mary at [facility] states [facility] to be completing Hospice Info Visit this morning at 1130. FESTUS met briefly with Sanna from Hospice prior to her meeting bedside with pt and Dtr to determine if they are open to signing Hospice Consents. Plan: FESTUS to follow after Hospice Info Visit to determine if pt and Dtr sign consents and then to call [facility] to begin coordination of care at d/c to their facility. NIMA Lui
--- NOTE | 2019-10-30 12:10 | PT-IP ANOTE ---
Discussed case with hospitalist Dr. Miller who noted family is electing hospice at this time. Dr. Miller plans to cancel the PT order. PT will remain available for consult should the pt's condition or wishes change.
--- NOTE | 2019-10-30 15:30 | PC.NURSE ---
Transfer to SNF: Tele dc'd. PICC line left in place for ongoing IV abx treatment. All belongings collected and sent with patient at discharge. Transfer packet (w/ scripts for Fentanyl patch and Oxycodone) and report given to ambulance staff. Transferred to [facility] using slider board, sent on O2 at 2L. Taken out by ambulance staff. Report called to Milind at [facility].
--- NOTE | 2019-10-31 18:27 | PM.DS.1 ---
History of Present Illness History of Present Illness Date Patient Seen: 10/30/19 Chief complaint: Respiratory distress Narrative: Lorraine Parra is an 79-year-old woman with a past medical history significant for hypertension, hyperlipidemia, hypothyroidism, longstanding history of multiple myeloma, renal cell carcinoma status post right nephrectomy 09/2008, and CKD who presented to the ED via EMS from [facility] for acute respiratory distress. The patient is intubated and sedated, therefore, HPI is unobtainable. Please see ED physician's note for all available information and HPI. Discharge Providers Provider Date of admission: 10/23/19 09:26 Discharge Date: 10/31/19 Consults: 10/23/19 10:18 Consult to Dietitian, Adult Routine Comment: Reason For Exam: Patient on Ventilator and NPO 10/26/19 09:25 Consult to General Surgery Routine Comment: Consulting Provider: Rodolfo Sood Reason for consultation: Port a Cath removal Has provider been notified: Yes 10/28/19 10:05 Consult to Speech Therapy Evaluate & Treat Comment: prolonged intubation Physician Instructions: Evaluate and treat 10/29/19 09:46 Consult to Physician Routine Comment: Consulting Provider: Alanis Gupta Reason for consultation: weight bearing recommendations given lytic lesions and possible tap Has provider been notified: Yes 10/30/19 09:41 Consult to Occupational Therapy Evaluate & Treat Comment: Physician Instructions: Evaluate and treat Consult to Physical Therapy Evaluate & Treat Comment: Physician Instructions: Evaluate and Treat Discharge provider: Gia Miller MD Summary Hospital Course Discharge Diagnosis: 1. Septic shock, resolved, present on admission 2. Staph aureus bacteremia 3. Acute pneumonia due to MRSA, Pseudomonas and parainfluenza 4. Acute hypoxic respiratory failure requiring intubation, 5. Status post Port-A-Cath removed with pus around the pocket 6. Hypertension 7. Hyperlipidemia 8. Hypothyroidism 9. Renal cell carcinoma 10. Chronic kidney 11. History of saddle pulmonary embolus 12. Dementia 13. Herpes zoster 14. Peripheral neuropathy 15. Acute blood loss anemia 16. Multiple myeloma Hospital Course: Patient was admitted to the hospital from [facility] for acute respiratory distress. Patient was found to be in acute hypoxic respiratory failure requiring intubation. She developed severe sepsis secondary to pneumonia, her pneumonia was polymicrobial due to MRSA and Pseudomonas. She also grew out parainfluenza. The patient did require IV fluids and pressors. She was found to also have Staph aureus bacteremia. The patient had a Port-A-Cath in place which was removed. The Port-A-Cath is showed pus around the pocket. The catheter tip was removed which revealed MRSA. The patient had a long and martir course. However she was successfully extubated. She was treated for her Staph aureus bacteremia with IV vancomycin. She did receive IV cefepime for her pneumonia and Pseudomonas. She completed a 7 day course of antibiotics for the bacterial pneumonia infection. Plans are underway for her to continue a 4 week course of IV vancomycin for her MRSA bacteremia and infection. The patient was found to have-ray. Her pelvic x-ray revealed evidence of lytic lesions. However orthopedic surgery evaluated the patient and was felt to be no acute fractures. Will she had multiple areas of involvement due to her multiple myeloma it was felt that the patient could be weight-bearing as tolerated. She was seen by PT and OT. She gradually made significant improvement. She was deemed appropriate for transfer to the detention unit where she will undergo ongoing rehabilitation in addition to continue treatment from her for her MRSA bacteremia. Patient was discharged to [facility] for ongoing rehabilitation. Status at Discharge Cognitive/behavioral status at discharge: oriented Functional status at discharge: uses cane/walker Overall status at discharge: patient is not back to baseline Time Spent with Patient Time spent: Less than 30 minutes Exam Vital Signs (past 8 hours): Fraction of Inspired Oxygen 30 Oxygen Delivery Method Room Air Oxygen Flow Rate 2 Narrative Exam Narrative: Exam Narrative: General: Elderly female lying in bed and in no acute distress. Now extubated and alert. Follows commands. HEENT: Normocephalic, atraumatic. External ears without defect. Pupils equal, round, and reactive to light. Anicteric sclerae and moist conjunctivae. Neck: Supple with full range of motion. No jugular venous distension. No lymphadenopathy or thyromegaly. Chest: normal AP diameter, Port-A-Cath site dressing without tenderness, and dressings c/d/i. Cardiovascular: Regular rate and rhythm without murmurs, rubs, or gallops appreciated. Pulmonary: CTA b/l anteriorly. Good air movement. Abdomen: Soft, bowel sounds present, nondistended. No hepatosplenomegaly or masses appreciated. Extremities: No clubbing, cyanosis. Upper extremity nonpitting edema is present. R 1st toe effusion and tenderness with small area of ulceration. Skin: Normal temperature, turgor, and texture; Objective Labs Result Diagrams: 10/29/19 05:00 10/29/19 05:00 Discharge Plan Discharge Plan Patient Disposition: SNF Transfer to: [facility] Discharge orders & Medications Prescriptions: New fentanyl 75 mcg/hr Patch 72 Hour 75 mcg topical Q72H 15 Days RF: 0 oxycodone 10 mg Tablet 20 mg PO Q6HR PRN (Reason: Pain, Severe (7-10)) 30 Days RF: 0 vancomycin in 0.9 % sodium chl 1.25 gram/250 mL solution 1.25 gram IV Q24H 30 Days Qty: 7500 RF: 0 Continued propranolol 80 MG tablet 160 mg PO DAILY Qty: 0 RF: 0 sertraline 100 mg Tablet 100 mg PO DAILY RF: 0 acetaminophen 325 mg Tablet 650 mg PO Q8H RF: 0 warfarin 3 mg tablet See Rx Instructions .ROUTE .COMPLEX RF: 0 levothyroxine [Synthroid] 150 mcg tablet 150 mcg PO DAILY RF: 0 ondansetron 4 mg tablet,disintegrating 4 mg PO Q8H PRN (Reason: Nausea And Vomiting) RF: 0 guaifenesin [Mucus Relief ER] 600 mg Tablet Extended Release 12hr 600 mg PO Q12HR PRN (Reason: Cough) Qty: 15 RF: 0 polyvinyl alcohol 1.4 % Drops 1 drp OPHTHALMIC (EYE) Q4HR PRN (Reason: Dry Eyes) RF: 0 melatonin 3 mg Tablet 6 mg PO BEDTIME RF: 0 guaifenesin [Tussin Expectorant] 100 mg/5 mL Liquid 200 mg PO Q6HR PRN (Reason: Cough) RF: 0 acyclovir 800 mg tablet 800 mg PO DAILYX7 RF: 0 warfarin 2 mg Tablet See Rx Instructions .ROUTE .COMPLEX RF: 0 gabapentin 300 mg capsule 300 mg PO TID RF: 0 Discontinued cyanocobalamin (vitamin B-12) 1,000 mcg Tablet 1,000 mcg PO DAILY RF: 0 diclofenac sodium 1 % gel 1 g TOPICAL BID RF: 0 dexamethasone 4 mg tablet 20 mg PO QWEEK RF: 0 tizanidine 2 mg tablet 2 mg PO Q6H PRN (Reason: Muscle Spasm) RF: 0 omeprazole 20 mg Capsule,Delayed Release(Dr/Ec) 20 mg PO DAILY RF: 0 Lactobacillus acidophilus [Acidophilus] Capsule 10 mg PO DAILY RF: 0 ipratropium bromide 42 mcg (0.06 %) spray,non-aerosol 1 spray INTRANASAL BID RF: 0 oxycodone-acetaminophen [Percocet] 10-325 mg tablet 2 tab PO Q6H PRN (Reason: Pain (Scale Score 7-10)) RF: 0 oxycodone 5 mg tablet 20 mg PO Q6H PRN (Reason: PAIN) RF: 0 multivitamin with minerals Tablet 1 tab PO DAILY RF: 0 Skin/Wound/Dressing Care Dressing: PICC (RUE) dressing due to be changed by 10/31/2019 at 1200 (was placed 10/23) Discharges patient from system. Discharge Date/Time: 10/30/19 15:38 Quality VTE Deep Vein Thrombosis/Pulmonary Embolism Present on Admission: No
== END 2019-10-30 15:38 | DRG 870 ==
LOC: ED 07:34 → ICU 09:27 → AC 10-29 14:23
PROVIDERS: Emergency Medicine; Internal Medicine; Nurse Practitioner Adult Health; Specialist; Admitting Provider Internal Medicine; Emergency Provider Emergency Medicine; Visit Provider Internal Medicine
PROC: 0JPW0WZ Removal of Totally Implantable Vascular Access Device from Lower Extremity Subcutaneous Tissue and Fascia, Open Approach (ICD-10-PCS; CPT 36590; principal; 2019-10-26 16:45)
DX: A41.02 Sepsis due to Methicillin resistant Staphylococcus aureus (principal); J10.08 Influenza due to other identified influenza virus with other specified pneumonia; J15.212 Pneumonia due to Methicillin resistant Staphylococcus aureus; R65.21 Severe sepsis with septic shock; J96.01 Acute respiratory failure with hypoxia; J15.1 Pneumonia due to Pseudomonas; J14 Pneumonia due to Hemophilus influenzae; C90.00 Multiple myeloma not having achieved remission; N39.0 Urinary tract infection, site not specified; T82.7XXA Infection and inflammatory reaction due to other cardiac and vascular devices, implants and grafts, initial encounter; T82.898A Other specified complication of vascular prosthetic devices, implants and grafts, initial encounter; D62 Acute posthemorrhagic anemia; I12.9 Hypertensive chronic kidney disease with stage 1 through stage 4 chronic kidney disease, or unspecified chronic kidney disease; N18.3 Chronic kidney disease, stage 3 (moderate); Y71.3 Surgical instruments, materials and cardiovascular devices (including sutures) associated with adverse incidents; R79.1 Abnormal coagulation profile; M10.071 Idiopathic gout, right ankle and foot; M84.550D Pathological fracture in neoplastic disease, pelvis, subsequent encounter for fracture with routine healing; E78.5 Hyperlipidemia, unspecified; E03.9 Hypothyroidism, unspecified; Z85.520 Personal history of malignant carcinoid tumor of kidney; Z90.5 Acquired absence of kidney; F32.9 Major depressive disorder, single episode, unspecified; G62.9 Polyneuropathy, unspecified; Z86.711 Personal history of pulmonary embolism; Z79.01 Long term (current) use of anticoagulants
CPT/HCPCS: 36415; 36430; 36569; 36590; 36591; 36592; 36600; 70450; 71045; 71275; 72170; 73660; 74177; 80048; 80053; 80076; 80202; 80320; 80329; 81001; 82140; 82550; 82805; 82962; 83036; 83605; 83690; 83735; 83880; 84100; 84145; 84443; 84484; 84550; 85025; 85610; 85730; 86850; 86900; 86901; 86927; 87040; 87070; 87075; 87077; 87086; 87147; 87150; 87185; 87186; 87205; 87449; 87502; 87633; 87797; 92610; 93005; 93306; 94002; 94003; 94640; 94760; 94762; 94770; 94799; 96360; 96361; 96365; 96366; 96368; 96375; 96376; 99213; 99231; 99232; 99285; 99291; 99292; P9016; P9017; C9113; G0480; J0610; J0692; J1170; J1335; J1642; J1940; J2250; J2704; J3010; J3430; J3480; Q9967

== ENCOUNTER → 2019-11-03 10:20 | Outpatient (ROUT) | payer MEDICARE, OTHER, SELFPAY ==
[2019-10-26 14:56] VITALS: BMI 34.7
[2019-10-28 09:10] VITALS: PULSE 90; RESP 19; O2SAT 100
[2019-11-03 10:41] LABS: INR 3.2 (0.9-1.3); Prothrombin Time 37.8 SECONDS (10.1-12.7)
[2019-11-03 10:46] LABS: BUN Creatinine Ratio 20.9 (6-22); Blood Urea Nitrogen 23 mg/dL (7-17); Carbon Dioxide 20 mmol/L (22-32); Chloride 108 mmol/L (98-107); Estimated Glomerular Filt Rate 47.7 mL/min (>60); Glucose 156 mg/dL (80-110); HEMOLYSIS < 15 (0-50); Potassium 3.4 mmol/L (3.4-5.1); Sodium 135 mmol/L (137-145)
[2019-11-03 10:59] LABS: Vancomycin Trough 29.8 ug/mL (10-20)
== END ==
PROVIDERS: Visit Provider Internal Medicine
DX: Z79.899 Other long term (current) drug therapy (principal)
CPT/HCPCS: 80048; 80202; 85610

== ENCOUNTER → 2019-11-04 08:57 | Outpatient (ROUT) | payer MEDICARE, OTHER, SELFPAY ==
[2019-10-26 14:56] VITALS: BMI 34.7
[2019-10-28 09:10] VITALS: PULSE 90; RESP 19; O2SAT 100
[2019-11-04 09:16] LABS: Blood Urea Nitrogen 22 mg/dL (7-17); Calcium 7.7 mg/dL (8.4-10.2); Carbon Dioxide 22 mmol/L (22-32); Chloride 104 mmol/L (98-107); Estimated Glomerular Filt Rate 53.2 mL/min (>60); Glucose 160 mg/dL (80-110); HEMOLYSIS < 15 (0-50); Potassium 3.1 mmol/L (3.4-5.1); Sodium 133 mmol/L (137-145)
[2019-11-04 10:12] LABS: Vancomycin Trough 30.4 ug/mL (10-20)
== END ==
PROVIDERS: Visit Provider Internal Medicine
DX: Z79.899 Other long term (current) drug therapy (principal); J18.9 Pneumonia, unspecified organism
CPT/HCPCS: 80048; 80202

== ENCOUNTER → 2019-11-05 12:02 | Outpatient (ROUT) | payer MEDICARE, OTHER, SELFPAY ==
[2019-10-26 14:56] VITALS: BMI 34.7
[2019-10-28 09:10] VITALS: PULSE 90; RESP 19; O2SAT 100
[2019-11-05 12:24] LABS: Hemoglobin 7.7 g/dL (12.0-16.0); Mean Corpuscular HGB Conc 33.5 % (30-36); Mean Corpuscular Hemoglobin 29.8 PG (26-34); Mean Corpuscular Volume 88.9 fL (80-100); Platelet Count 290 X10^3/uL (150-400); Red Blood Cell Count 2.58 X10^6/uL (4.0-5.2); Red Cell Distribution Width 16.5 % (11.6-14.8); White Blood Cell Count 8.5 X10^3/uL (4.5-11.0)
[2019-11-05 12:27] LABS: Add Manual Diff / Slide Review YES
[2019-11-05 12:29] LABS: BUN Creatinine Ratio 21.1 (6-22); Blood Urea Nitrogen 19 mg/dL (7-17); Calcium 7.5 mg/dL (8.4-10.2); Carbon Dioxide 25 mmol/L (22-32); Chloride 104 mmol/L (98-107); Estimated Glomerular Filt Rate > 60.0 mL/min (>60); Glucose 177 mg/dL (80-110); HEMOLYSIS < 15 (0-50); Potassium 2.9 mmol/L (3.4-5.1); Sodium 133 mmol/L (137-145)
[2019-11-05 12:36] LABS: Vancomycin Trough 24.1 ug/mL (10-20)
[2019-11-05 12:49] LABS: Neutrophils Absolute Manual 6885 /uL (3000-5900); Total Cells Counted 100
[2019-11-05 12:50] LABS: Anisocytosis 2+
[2019-11-05 12:51] LABS: Toxic Granulation Present
[2019-11-05 15:32] LABS: INR 4.8 (0.9-1.3); Prothrombin Time 55.9 SECONDS (10.1-12.7)
== END ==
DX: C90.00 Multiple myeloma not having achieved remission (principal); D61.818 Other pancytopenia
CPT/HCPCS: 80048; 80202; 85025; 85610

== ENCOUNTER → 2019-11-07 07:58 | Outpatient (ROUT) | payer MEDICARE, OTHER, SELFPAY ==
[2019-10-26 14:56] VITALS: BMI 34.7
[2019-10-28 09:10] VITALS: PULSE 90; RESP 19; O2SAT 100
[2019-11-07 08:19] LABS: Vancomycin Trough 18.6 ug/mL (10-20)
[2019-11-07 13:14] LABS: Prothrombin Time 54.1 SECONDS (10.1-12.7)
[2019-11-07 13:18] LABS: INR 4.5 (0.9-1.3)
== END ==
PROVIDERS: Visit Provider Internal Medicine
DX: Z79.899 Other long term (current) drug therapy (principal)
CPT/HCPCS: 80202; 85610

== ENCOUNTER → 2019-11-08 10:00 | Outpatient (ROUT) | payer MEDICARE, OTHER, SELFPAY ==
[2019-10-26 14:56] VITALS: BMI 34.7
[2019-10-28 09:10] VITALS: PULSE 90; RESP 19; O2SAT 100
[2019-11-08 10:30] LABS: Vancomycin Trough 17.7 ug/mL (10-20)
== END ==
PROVIDERS: Visit Provider Internal Medicine
DX: Z79.899 Other long term (current) drug therapy (principal); Z86.718 Personal history of other venous thrombosis and embolism; Z86.711 Personal history of pulmonary embolism
CPT/HCPCS: 80202; 85610

== ENCOUNTER → 2019-11-09 08:57 | Outpatient (ROUT) | payer MEDICARE, OTHER, SELFPAY ==
[2019-10-26 14:56] VITALS: BMI 34.7
[2019-10-28 09:10] VITALS: PULSE 90; RESP 19; O2SAT 100
[2019-11-09 09:24] LABS: INR 3.3 (0.9-1.3); Prothrombin Time 39.2 SECONDS (10.1-12.7)
[2019-11-09 09:26] LABS: Vancomycin Trough 15.7 ug/mL (10-20)
== END ==
PROVIDERS: Visit Provider Internal Medicine
DX: Z79.899 Other long term (current) drug therapy (principal)
CPT/HCPCS: 80202; 85610

== ENCOUNTER → 2019-11-11 16:05 | Outpatient (ROUT) | payer MEDICARE, OTHER, SELFPAY ==
[2019-10-26 14:56] VITALS: BMI 34.7
[2019-10-28 09:10] VITALS: PULSE 90; RESP 19; O2SAT 100
[2019-11-11 16:23] LABS: INR 2.4 (0.9-1.3); Prothrombin Time 27.7 SECONDS (10.1-12.7)
== END ==
PROVIDERS: Visit Provider Nurse Practitioner
DX: Z79.01 Long term (current) use of anticoagulants (principal)
CPT/HCPCS: 85610

== ENCOUNTER → 2019-11-13 14:18 | Outpatient (ROUT) | payer MEDICARE, OTHER, SELFPAY ==
[2019-10-26 14:56] VITALS: BMI 34.7
[2019-10-28 09:10] VITALS: PULSE 90; RESP 19; O2SAT 100
== END ==
PROVIDERS: Visit Provider Internal Medicine
DX: B95.61 Methicillin susceptible Staphylococcus aureus infection as the cause of diseases classified elsewhere (principal); R78.81 Bacteremia; J12.2 Parainfluenza virus pneumonia
CPT/HCPCS: 85610

== ENCOUNTER → 2019-11-16 14:50 | Outpatient (ROUT) | payer MEDICARE, OTHER, SELFPAY ==
[2019-10-26 14:56] VITALS: BMI 34.7
[2019-10-28 09:10] VITALS: PULSE 90; RESP 19; O2SAT 100
[2019-11-16 15:14] LABS: INR 1.6 (0.9-1.3); Prothrombin Time 18.5 SECONDS (10.1-12.7)
== END ==
PROVIDERS: Visit Provider Internal Medicine
DX: Z79.01 Long term (current) use of anticoagulants (principal)
CPT/HCPCS: 85610

== ENCOUNTER → 2019-11-17 11:37 | Outpatient (ROUT) | payer MEDICARE, OTHER, SELFPAY ==
[2019-10-26 14:56] VITALS: BMI 34.7
[2019-10-28 09:10] VITALS: PULSE 90; RESP 19; O2SAT 100
[2019-11-17 11:57] LABS: INR 1.6 (0.9-1.3); Prothrombin Time 18.6 SECONDS (10.1-12.7)
[2019-11-17 21:05] LABS: BUN Creatinine Ratio 17.3 (6-22); Blood Urea Nitrogen 19 mg/dL (7-17); Calcium 6.8 mg/dL (8.4-10.2); Carbon Dioxide 30 mmol/L (22-32); Chloride 99 mmol/L (98-107); Estimated Glomerular Filt Rate 47.7 mL/min (>60); Glucose 128 mg/dL (80-110); HEMOLYSIS 18 (0-50); Potassium 4.6 mmol/L (3.4-5.1); Sodium 133 mmol/L (137-145)
[2019-11-17 21:11] LABS: Vancomycin Trough 14.7 ug/mL (10-20)
== END ==
PROVIDERS: Visit Provider Internal Medicine
DX: B95.61 Methicillin susceptible Staphylococcus aureus infection as the cause of diseases classified elsewhere (principal); R78.81 Bacteremia
CPT/HCPCS: 80048; 80202; 85610

== ENCOUNTER → 2019-12-06 09:33 | Outpatient (ROUT) | payer OTHER, MEDICARE, MEDICAID, SELFPAY ==
[2019-10-26 14:56] VITALS: BMI 34.7
[2019-10-28 09:10] VITALS: PULSE 90; RESP 19; O2SAT 100
[2019-12-06 09:59] LABS: INR 1.9 (0.9-1.3); Prothrombin Time 21.7 SECONDS (10.1-12.7)
== END ==
PROVIDERS: Visit Provider Internal Medicine
DX: Z79.01 Long term (current) use of anticoagulants (principal)
CPT/HCPCS: 85610

== ENCOUNTER → 2019-12-11 16:47 | Outpatient (ROUT) | payer OTHER, MEDICARE, SELFPAY ==
[2019-10-26 14:56] VITALS: BMI 34.7
[2019-10-28 09:10] VITALS: PULSE 90; RESP 19; O2SAT 100
== END ==
PROVIDERS: Visit Provider Internal Medicine
DX: Z79.899 Other long term (current) drug therapy (principal)
CPT/HCPCS: 85610

== ENCOUNTER → 2019-12-14 14:10 | Outpatient (ROUT) | payer OTHER, MEDICARE, SELFPAY ==
[2019-10-26 14:56] VITALS: BMI 34.7
[2019-10-28 09:10] VITALS: PULSE 90; RESP 19; O2SAT 100
[2019-12-14 14:31] LABS: INR 2.4 (0.9-1.3); Prothrombin Time 27.2 SECONDS (10.1-12.7)
--- NOTE | 2019-12-26 10:51 | ONC.MSW ---
Description: T/C to [facility] re: pt status Activity: Called the patient resident care provider at [facility] to clarify what pt's medical status is, and if she will be needing ONC f/u. Pt has been transitioned to hospice care at this time. Forwarded this info to schedulers to close-out her chart.
== END ==
PROVIDERS: Visit Provider Internal Medicine
DX: I48.91 Unspecified atrial fibrillation (principal)
CPT/HCPCS: 85610